=== PATIENT | female | born 1940 | race Caucasian/White ===

== ENCOUNTER 2016-12-21 12:43 | Inpatient (IN) | payer MEDICARE, BC ==
[2016-12-21] MEDS ORDERED: NS 0.9% 1000 ML* 1,000 ML IV SCH (15:30)
--- NOTE | 2016-12-21 15:53 | RAD ---
HISTORY: Altered mental status COMPARISONS: June 16, 2016 VIEWS:1: Single frontal portable view of the chest at 3:37 PM FINDINGS: LINES AND TUBES: None. CARDIOMEDIASTINAL SILHOUETTE: The cardiomediastinal silhouette is normal for portable technique. PLEURA: The costophrenic angles are sharp. No pleural abnormalities are noted. LUNG PARENCHYMA: The lungs are clear. ABDOMEN: The upper abdomen is clear. There is no subphrenic gas. BONES AND SOFT TISSUES: No bone or soft tissue abnormalities are noted. IMPRESSION: NO ACTIVE CARDIOPULMONARY DISEASE.
[2016-12-21 16:17] LABS: Hematocrit 44 % (35-47); Hemoglobin 14.9 g/dl (12.0-16.0); Mean Corpuscular HGB Conc 34 g/dl (31-36); Mean Corpuscular Hemoglobin 31 pg (27-31); Mean Corpuscular Volume 92 fL (80-97); Mean Platelet Volume 8 um3 (7.4-10.4); Red Blood Count 4.78 10^6/ul (4.0-5.4); Red Cell Distribution Width 15 % (10.5-15); White Blood Count 4.3 10^3/ul (3.5-10.8)
--- NOTE | 2016-12-21 16:24 | RAD ---
Indication: Altered mental status. Weakness and fatigue for the past 6 weeks. Comparison: November 09, 2016 MRI. June 15, 2016 CT. Technique: Noncontrast CT vertex of skull through foramen magnum. Report: Mild prominence of the cerebral sulci and cerebellar fissures reflecting atrophy. Unremarkable ventricles and basal cisterns. Decreased density in the periventricular and subcortical white matter while non-specific is most likely due to chronic microangiopathy. Negative for neff matter white matter obscuration, intra or extra-axial hemorrhage, or mass effect. Unremarkable orbital contents. Partially visualized RIGHT maxillary sinus is hypoplastic with indolent thickening of the sinus broussard without change. Negative for paranasal sinus fluid levels within the [id number]. Clear mastoid air spaces. No suspicious skull base or calvarial lesions or fracture. Negative for scalp hematoma. IMPRESSION: Mild involutional change and stigmata of chronic small vessel ischemic disease. Stable exam compared with June 15, 2016. No acute intracranial process evident.
[2016-12-21 16:38] LABS: B Type Natriuretic Peptide 78 pg/mL
[2016-12-21 16:41] LABS: Troponin I 0.07 ng/mL (<0.04)
[2016-12-21 16:46] LABS: ALT 17 U/L (7-52); AST 39 U/L (13-39); Albumin 3.8 g/dL (3.2-5.2); Alkaline Phosphatase 81 U/L (34-104); Anion Gap 9 mmol/L (2-11); Blood Urea Nitrogen 6 mg/dL (6-24); C Reactive Protein 8.83 mg/L (< 5.00); CO2 Carbon Dioxide 26 mmol/L (22-32); Calcium 9.7 mg/dL (8.6-10.3); Chloride 93 mmol/L (101-111); Creatine Kinase 52 U/L (10-223); EGFR African American 154.3 (>60); Globulin 3.2 g/dL (2-4); Glucose 120 mg/dL (70-100); Lipase 24 U/L (11.0-82.0); Magnesium 1.5 mg/dL (1.9-2.7); Potassium 3.5 mmol/L (3.5-5.0); Sodium 128 mmol/L (133-145)
[2016-12-21 16:50] LABS: Ammonia 43 mol/L (16-53)
[2016-12-21 17:03] LABS: Acetaminophen < 15 mcg/mL; Alcohol < 10 mg/dL (<10); Salicylate < 2.50 mg/dL (<30)
[2016-12-21 17:13] LABS: TSH (Thyroid Stimulating Horm) 3.71 mcIU/mL (0.34-5.60)
[2016-12-21 17:48] LABS: Urine Bacteria 1+ (Absent); Urine Bilirubin Negative (Negative); Urine Glucose Negative (Negative); Urine Nitrite Positive (Negative)
[2016-12-21] MEDS ORDERED: cefTRIAXone VIAL(*) 1,000 MG in NS 0.9% 50 ML* 50 ML IVPB ONE (18:14)
--- NOTE | 2016-12-21 18:15 | ED ---
Elijah Beck Erika, scribed for Mandy Mead MD on 12/21/16 at 1743 . Complex/Multi-Sys Presentation - HPI Summary HPI Summary: Patient is a 76-year-old female presenting to the ED with her with a CC of confusion, unsteady gait and falls. Patient has difficulty telling the history, she states due to headache, so provides the majority of the history. He reports that 4-5 weeks ago, pt developed increasing somnolence - 20 + hours/day now - with some awake periods at night. For the past 3 weeks or so, pt has had an occipital headache radiating to the ears - denies visual changes. He states pt has always had difficulty with gait due to psoriatic arthritis in her foot with reconstructive surgery, but states that balance has significantly worsened. He reports that she has fallen many times, which is abnormal, and that she is now using a walker. Pt also has had increased confusion, and difficulty speaking. He reports pt starts sentences but will be unable to complete them sometimes - pt reports that she sometimes knows the word she wants to say but cannot say it, and sometimes has a hard time thinking of words. also reports mild slurred speech at times. Pt also has had decreased PO intake in this time per , and constipation but no diarrhea. Pt was seen by her PCP, Dr. Terry, for these symptoms, and had a Brain CT scheduled for tomorrow. However, pt decided to come today instead - symptoms have been gradually progressing over the past month and today decided it had gone too far. Patient was admitted to a rehab hospital for alcohol abuse and cardiac disease in September 2016 - last known drink was prior to this hospitalization per and patient. Patient is taking a maintenance dose of prednisone. Recently discontinued Tegretol on 12/19/2016 - had been on it for 3 weeks for possible trigeminal neuralgia. Stopped this medicaiton on Tuesday. Hx HTN controlled with medication. 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 Hx MRSA - Tx with vancomycin. PSHx mastectomy - breast CA. PSHx artificial elbows, knees. Pt with MRSA infecitons. Denies Hx stroke, [place]. Patient's medications reviewed this visit. - History Of Current Complaint Chief Complaint: EDWeakness Time Seen by Provider: 12/21/16 17:30 Hx Obtained From: Patient, Family/Hand Molder - Onset/Duration: Gradual Onset, Lasting Weeks, Still Present Timing: Constant Severity Currently: Moderate Severity Initially: Mild Associated Signs And Symptoms: Positive: Confusion, Headache, Decreased Oral Intake, Other - unsteady gait, difficulty speaking. Negative: Decreased Responsiveness - Allergies/Home Medications Allergies/Adverse Reactions: Allergies Allergy/AdvReac Type Severity Reaction Status Date / Time Celecoxib [From Celebrex] Allergy Unknown Rash Verified 11/25/16 14:35 Methotrexate Allergy See Comment Verified 11/25/16 14:35 Vancomycin Allergy Rash Verified 11/25/16 14:35 adhesives AdvReac Intermediate Rash Uncoded 11/02/16 12:11 Home Medications: Home Medications Apixaban* [Eliquis*] 5 mg PO BID 12/21/16 [History Confirmed 12/21/16] Cholecalciferol [Vitamin D3 Super Strength] 2,000 unit PO DAILY 12/21/16 [ History Confirmed 12/21/16] Cyanocobalamin TAB* [Vitamin B12 TAB*] 1,000 mcg PO DAILY 12/21/16 [History Confirmed 12/21/16] Docusate Sodium [Gnp Stool Softener] 250 mg PO DAILY 12/21/16 [History Confirmed 12/21/16] Dofetilide CAP* [Tikosyn CAP*] 500 mcg PO BID 12/21/16 [History Confirmed ] Ibuprofen TAB* [Advil TAB*] 400 mg PO .Q4-6H PRN 12/21/16 [History Confirmed 05/01] Levothyroxine TAB* [Synthroid TAB*] 137 mcg PO DAILY 12/21/16 [History Confirmed 12/21/16] Losartan TAB* [Cozaar TAB*] 75 mg PO DAILY 12/21/16 [History Confirmed 12/21/16] Minocycline (NF) 100 mg PO QPM 12/21/16 [History Confirmed 12/21/16] Montelukast Sodium TAB* [Singulair TAB*] 10 mg PO DAILY 12/21/16 [History Confirmed 12/21/16] Multivitamins/Minerals TAB* [Theragran/minerals TAB*] 1 tab PO DAILY 12/21/16 [ History Confirmed 12/21/16] Pantoprazole TAB (NF) [Protonix TAB (NF)] 40 mg PO DAILY 12/21/16 [History Confirmed 12/21/16] Probiotic Product [Probiotic Daily] 1 cap PO BID 12/21/16 [History Confirmed 05/01] Ranitidine TAB (NF) [Zantac TAB (NF)] 300 mg PO BEDTIME 12/21/16 [History Confirmed 12/21/16] Teriparatide (Recombinant) [Forteo] 20 mcg SUBCUT DAILY 12/21/16 [History Confirmed 12/21/16] Venlafaxine EXT RELEASE CAP* [Effexor Xr CAP*] 75 mg PO DAILY 12/21/16 [History Confirmed 12/21/16] amLODIPine TAB* [Norvasc 5 mg TAB*] 5 mg PO DAILY 12/21/16 [History Confirmed ] azaTHIOprine TAB(*) [Imuran TAB(*)] 100 mg PO DAILY 12/21/16 [History Confirmed 12/21/16] carBAMazepine ER TAB(*) [TEGretol Xr TAB(*)] 100 mg PO QAM 12/21/16 [History Confirmed 12/21/16] predniSONE TAB* [Deltasone TAB*] 5 mg PO DAILY 12/21/16 [History Confirmed 12/21] PMH/Surg Hx/FS Hx/Imm Hx Endocrine/Hematology History: Reports: Hx Thyroid Disease - hypothyroidism Denies: Hx Anticoagulant Therapy Cardiovascular History: Reports: Hx Atrial Fibrillation - on blood thinner, Hx Hypercholesterolemia, Hx Hypertension - W/MEDS, Hx Valvular Heart Disease - Aortic Valve disease, Other Cardiovascular Problems/Disorders - ON BLOOD THINNER MEDICATION PER Respiratory History: Reports: Hx Chronic Obstructive Pulmonary Disease (COPD) - with chronic bronchitis, Hx Sleep Apnea, Other Respiratory Problems/Disorders - Pulmonary HTN GI History: Reports: Hx Gastroesophageal Reflux Disease, Hx Ulcer - gerd, Other GI Disorders - CONSTIPATION- DIET CONTROLLED History: Denies: Hx Renal Disease Musculoskeletal History: Reports: Hx Arthritis, Hx Back Problems, Hx Orthopedic Injury - Right arm reconstruction r/t traumatic injury, Other Musculoskeletal History - Left Fibula Fracture 08/03/16, psoriatic arthritis Sensory History: Reports: Hx Cataracts, Hx Contacts or Glasses Opthamlomology History: Reports: Hx Cataracts, Hx Contacts or Glasses Neurological History: Denies: Hx CVA Psychiatric History: Reports: Hx Depression, Hx Suicide Attempt, Hx Substance Abuse - EtOH - Cancer History Cancer Type, Location and Year: Rt BREAST - MASTECTOMY - 2013 Hx Chemotherapy: No Hx Radiation Therapy: Yes Hx Palliative Cancer Treatment: No - Surgical History Surgery Procedure, Year, and Place: CATARACTS. LT FOOT - REPAIR - RECON W/ METAL. LUMBAR - DISCETOMY, HERNIATION. NON- MALIGNANT TUMOR REMOVED. REN KNEE REPLACEMENTS ( 1999 & 2009). Rt ELBOW - ARTIFICIAL JOINT AND METAL PLATE ABOVE JOINT. TONSILECTOMY. APPENDECTOMY. OVARIAN CYST REMOVED - RNE. Rt MASTECTOMY Hx Anesthesia Reactions: No Infectious Disease History: Yes Infectious Disease History: Reports: Hx of Known/Suspected MRSA - right elbow, 2012 Denies: Hx Clostridium Difficile, Hx Hepatitis, Hx Human Immunodeficiency Virus (HIV), Hx Shingles, Hx Tuberculosis, Hx Known/Suspected VRE, Hx Known/ Suspected VRSA, History Other Infectious Disease, Traveled Outside the in Last 30 Days - Family History Known Family History: Positive: Other - Breast CA - Social History Occupation: Retired Lives: With Family Alcohol Use: None - Hx EtOH abuse - sober since 09/2016 Hx Tobacco Use: Yes Smoking Status (MU): Current Every Day Smoker Type: Cigarettes Amount Used/How Often: 5 a day Length of Time of Smoking/Using Tobacco: 15 yrs Have You Smoked in the Last Year: No Review of Systems Positive: Fatigue, Other - confusion, falls. Negative: Fever, Chills Negative: Blurred Vision ENT: Negative Cardiovascular: Negative Respiratory: Negative Gastrointestinal: Negative Positive: Other - decreased PO intake, constipation. Negative: Diarrhea Genitourinary: Negative Positive: Arthralgia Positive: Bruising - multipe bruises related to falls Neurological: Other - confusion, unsteady gait, difficulty speaking Positive: Headache, Weakness Psychological: Normal All Other Systems Reviewed And Are Negative: Yes Physical Exam Triage Information Reviewed: Yes Vital Signs On Initial Exam: Initial Vitals Temp Pulse Resp BP Pulse Ox 96.1 F 69 18 187/88 96 12/21/16 12:47 12/21/16 12:47 12/21/16 12:47 12/21/16 12:47 12/21/16 12:47 Vital Signs Reviewed: Yes Completion Of Physical Exam Limited Due To: Other - assist with hx Appearance: Positive: Well-Appearing, No Pain Distress, Well-Nourished Skin: Positive: Warm, Skin Color Reflects Adequate Perfusion, Dry, Other - muliple areas ecchymosis b/l upper ext s/p falls Head/Face: Positive: Normal Head/Face Inspection. Negative: Temporal Artery Tenderness, TMJ Tenderness Eyes: Positive: EOMI, LEIGH, Conjunctiva Clear ENT: Positive: Hearing grossly normal, Pharynx normal, TMs normal Neck: Positive: Supple, Nontender, No Lymphadenopathy. Negative: Nuchal Rigidity Respiratory/Lung Sounds: Positive: Clear to Auscultation, Breath Sounds Present. Negative: Wheezes Cardiovascular: Positive: Normal, RRR, Murmur Abdomen Description: Positive: Nontender, No Organomegaly, Soft Bowel Sounds: Positive: Present Musculoskeletal: Positive: Other - left foot surgical deformity + SLE b/l + ROM upper ext at baseline per and pt - limited second to reconstructive surgery Neurological: Positive: Facial Symmetry, Speech Normal. Negative: Alert, Oriented to Person Place, Time - alert to name, year, president - not month, place, Receptive Aphasia, Expressive Aphasia, Facial Droop, Slurred Speech Psychiatric: Positive: Normal AVPU Assessment: Alert - [place] Coma Scale Best Eye Response: 4 - Spontaneous Best Motor Response: 6 - Obeys Commands Best Verbal Response: 5 - Oriented Diagnostics - Vital Signs Vital Signs Temp Pulse Resp BP Pulse Ox 12/21/16 16:13 192/98 12/21/16 16:04 67 14 93 12/21/16 16:00 68 18 197/93 94 12/21/16 15:39 15 197/96 12/21/16 15:28 97.7 F 69 14 197/96 95 12/21/16 15:26 70 92 12/21/16 14:02 97.2 F 63 18 177/80 100 12/21/16 12:47 96.1 F 69 18 187/88 96 - Laboratory Lab Results: Lab Results 12/21/16 12/21/16 12/21/16 Range/Units 15:55 15:55 15:55 WBC 4.3 (3.5-10.8) 10^3/ul RBC 4.78 (4.0-5.4) 10^6/ul Hgb 14.9 (12.0-16.0) g/dl Hct 44 (35-47) % MCV 92 (80-97) fL MCH 31 (27-31) pg MCHC 34 (31-36) g/dl RDW 15 (10.5-15) % Plt Count 153 (150-450) 10^3/ul MPV 8 (7.4-10.4) um3 Neut % (Auto) 62.7 (38-83) % Lymph % (Auto) 19.7 L (25-47) % Branch % (Auto) 8.0 (1-9) % Eos % (Auto) 9.1 H (0-6) % Baso % (Auto) 0.5 (0-2) % Absolute Neuts (auto) 2.7 (1.5-7.7) 10^3/ul Absolute Lymphs (auto) 0.8 L (1.0-4.8) 10^3/ul Absolute Monos (auto) 0.3 (0-0.8) 10^3/ul Absolute Eos (auto) 0.4 (0-0.6) 10^3/ul Absolute Basos (auto) 0 (0-0.2) 10^3/ul Absolute Nucleated RBC 0.01 10^3/ul Nucleated RBC % 0.2 INR (Anticoag Therapy) 1.02 (0.89-1.11) APTT 23.1 L (26.0-36.3) seconds Sodium 128 L (133-145) mmol/L Potassium 3.5 (3.5-5.0) mmol/L Chloride 93 L (101-111) mmol/L Carbon Dioxide 26 (22-32) mmol/L Anion Gap 9 (2-11) mmol/L BUN 6 (6-24) mg/dL Creatinine 0.50 L (0.51-0.95) mg/dL Est GFR ( Amer) 154.3 (>60) Est GFR (Non-Af Amer) 120.0 (>60) BUN/Creatinine Ratio 12.0 (8-20) Glucose 120 H (70-100) mg/dL Lactic Acid (0.5-2.0) mmol/L Calcium 9.7 (8.6-10.3) mg/dL Magnesium 1.5 L (1.9-2.7) mg/dL Total Bilirubin 0.40 (0.2-1.0) mg/dL AST 39 (13-39) U/L ALT 17 (7-52) U/L Alkaline Phosphatase 81 (34-104) U/L Ammonia (16-53) mol/L Total Creatine Kinase 52 (10-223) U/L CK-MB (CK-2) 5.7 (0.6-6.3) ng/mL Troponin I 0.07 H* (<0.04) ng/mL C-Reactive Protein 8.83 H (< 5.00) mg/L B-Natriuretic Peptide ( - 100) pg/mL Total Protein 7.0 (6.4-8.9) g/dL Albumin 3.8 (3.2-5.2) g/dL Globulin 3.2 (2-4) g/dL Albumin/Globulin Ratio 1.2 (1-3) Lipase 24 (11.0-82.0) U/L TSH 3.71 (0.34-5.60) mcIU/mL Salicylates < 2.50 (<30) mg/dL Acetaminophen < 15 mcg/mL Serum Alcohol < 10 (<10) mg/dL 12/21/16 12/21/16 Range/Units 15:55 15:55 WBC (3.5-10.8) 10^3/ul RBC (4.0-5.4) 10^6/ul Hgb (12.0-16.0) g/dl Hct (35-47) % MCV (80-97) fL MCH (27-31) pg MCHC (31-36) g/dl RDW (10.5-15) % Plt Count (150-450) 10^3/ul MPV (7.4-10.4) um3 Neut % (Auto) (38-83) % Lymph % (Auto) (25-47) % Branch % (Auto) (1-9) % Eos % (Auto) (0-6) % Baso % (Auto) (0-2) % Absolute Neuts (auto) (1.5-7.7) 10^3/ul Absolute Lymphs (auto) (1.0-4.8) 10^3/ul Absolute Monos (auto) (0-0.8) 10^3/ul Absolute Eos (auto) (0-0.6) 10^3/ul Absolute Basos (auto) (0-0.2) 10^3/ul Absolute Nucleated RBC 10^3/ul Nucleated RBC % INR (Anticoag Therapy) (0.89-1.11) APTT (26.0-36.3) seconds Sodium (133-145) mmol/L Potassium (3.5-5.0) mmol/L Chloride (101-111) mmol/L Carbon Dioxide (22-32) mmol/L Anion Gap (2-11) mmol/L BUN (6-24) mg/dL Creatinine (0.51-0.95) mg/dL Est GFR ( Amer) (>60) Est GFR (Non-Af Amer) (>60) BUN/Creatinine Ratio (8-20) Glucose (70-100) mg/dL Lactic Acid 0.8 (0.5-2.0) mmol/L Calcium (8.6-10.3) mg/dL Magnesium (1.9-2.7) mg/dL Total Bilirubin (0.2-1.0) mg/dL AST (13-39) U/L ALT (7-52) U/L Alkaline Phosphatase (34-104) U/L Ammonia 43 (16-53) mol/L Total Creatine Kinase (10-223) U/L CK-MB (CK-2) (0.6-6.3) ng/mL Troponin I (<0.04) ng/mL C-Reactive Protein (< 5.00) mg/L B-Natriuretic Peptide 78 ( - 100) pg/mL Total Protein (6.4-8.9) g/dL Albumin (3.2-5.2) g/dL Globulin (2-4) g/dL Albumin/Globulin Ratio (1-3) Lipase (11.0-82.0) U/L TSH (0.34-5.60) mcIU/mL Salicylates (<30) mg/dL Acetaminophen mcg/mL Serum Alcohol (<10) mg/dL Result Diagrams: 12/21/16 15:55 12/21/16 15:55 Lab Statement: Any lab studies that have been ordered have been reviewed, and results considered in the medical decision making process. - Radiology CXR Radiology Interpretation Completed By: Radiologist - IMPRESSION: NO ACTIVE CARDIOPULMONARY DISEASE. - CT CT Brain CT Interpretation Completed By: Radiologist - IMPRESSION: Mild involutional change and stigmata of chronic small vessel ischemic disease. Stable exam compared with June 15, 2016. No acute intracranial process evident. - EKG 15:13 Cardiac Rate: NL - at 73 bpm EKG Rhythm: Sinus Rhythm EKG Interpretation: No T wave changes Re-Evaluation - Re-Evaluation First Eval Re-Evaluation Time: 18:08 Change: Unchanged Comment: Pt and are in agreement with the plan for admission. reviewed labs with pt. + UTI. + slight bump in trop. Will give ceftriaxone Complex Multi-Symp Course/Dx Assessment/Plan: Pt presents with with multiple complaints including progressive fatigue, recurrent falls, posterior SHER, balanace difficulty, confusion. Will check labs, EKG, head CT, urine. IVF. likely will admit for ?MRI given posterior SHER and concerns related to balance. Pt and in agreement with plan - Diagnoses Provider Diagnoses: Fall, UTI (urinary tract infection), Elevated troponin - Physician Notifications Discussed Care Of Patient With: Dr. Mead (hospitalist) at 18:08 - agrees to admit Discharge - Discharge Plan Condition: Stable Disposition: ADMITTED TO [facility] documentation as recorded by the Elijah olguin Erika accurately reflects the service I personally performed and the decisions made by [place] miles Laura, MD.
[2016-12-21] MEDS ORDERED: hydrALAZINE IV* 20 MG/ML VIAL IV SLOW PU PRN (18:43)
[2016-12-21] MEDS ORDERED: Albuterol 2.5 MG/3 ML NEB.SOL* (0.083%) INH PRN (18:49)
[2016-12-21] MEDS ORDERED: Magnesium Sulfate 2 GM IV* 2 GM/50 ML BAG IVPB ONE (19:00)
[2016-12-21 19:28] LABS: Carbamazepine 16.1 mcg/mL (4.0-12.0)
[2016-12-21] MEDS ORDERED: Labetalol IV* 5 MG/ML 20 ML VIAL IV PUSH ONE (20:57)
[2016-12-21] MEDS ORDERED: amLODIPine TAB* 5 MG PO ONE (20:58)
[2016-12-21] MEDS ORDERED: hydrALAZINE IV* 20 MG/ML VIAL IV SLOW PU ONE (21:08)
[2016-12-21] MEDS: Famotidine TAB* 20 MG PO SCH (21:15)
[2016-12-21] MEDS: Acetaminophen TAB* 325 MG PO PRN (21:15)
--- NOTE | 2016-12-21 21:17 | RAD ---
Indication: Unsteady gait, weakness and fatigue for 6 weeks. Worsening of symptoms today. Urinary tract infection. Comparison: CT brain of the same date and November 09, 2016 MRI. Technique: Socruisea 1.5 Swati [id number] with GEM suite. Limited exam due to poor tolerance for MRI imaging. Sagittal T1, axial diffusion-weighted, axial T2, and ADC map obtained. Report: Diffusion series is negative for acute or subacute ischemia. Mild prominence of the cerebral sulci and cerebellar fissures reflecting atrophy. Unremarkable ventricles and basal cisterns. Reference the axial T2 FLAIR series there is increased signal within the bilateral occipital lobe subcortical white matter and cortex new compared with the prior exam without associated diffusion abnormality or abnormality on the sagittal T1-weighted series. In addition there is chronic increased T2 signal in the periventricular white matter of the cerebral hemispheres and the ju. Negative for intra or extra-axial fluid collection. Negative for mass effect. No gross abnormality of the orbital contents. Preserved major intracranial flow-voids. No focal calvarial or skull base lesion evident. Hypoplastic RIGHT maxillary sinus. Negative for paranasal sinus fluid levels. Clear mastoid air spaces. IMPRESSION: 1. The constellation of findings favors posterior reversible encephalopathy syndrome (PRES) resulting in vasogenic edema without stigmata of acute or subacute ischemia at the bilateral subdural lobes. This may be secondary to severe hypertension, drug toxicity, autoimmune disease, or sepsis. 2. Mild involutional change and chronic stigmata of small vessel ischemic disease. 3. Negative for diffusion abnormalities to indicate acute or subacute ischemia.
[2016-12-21] MEDS: Mometasone 220 MCG MDI INH SCH (22:00)
[2016-12-21] MEDS: Apixaban* 5 MG TAB PO SCH (23:39)
[2016-12-21] MEDS: Dofetilide CAP* 500 MCG PO SCH (23:39)
[2016-12-22] MEDS: HYDROmorphone TAB* 2 MG PO SCH ×4 (00:23→05:31)
--- NOTE | 2016-12-22 00:42 | HP ---
HISTORY AND PHYSICAL: DATE OF ADMISSION: 12/21/16 PRIMARY CARE PROVIDER: Dr. Terry. ATTENDING PROVIDER: Sabino Mead MD * (dictated by Silvina Odell NP) CHIEF COMPLAINT: 1. Altered mental status. 2. Weakness. 3. Headache. HISTORY OF PRESENTING ILLNESS: Ms. Gusman is a 76-year-old female with quite an extensive medical history, history of hypertension, AFib, hypothyroidism, psoriatic arthritis, chronic pain, eosinophilic pneumonitis or bronchitis, history of CVID, pulmonary hypertension, aortic stenosis, MRSA, and history of breast cancer. She comes into the ER today stating that last 3 weeks, she has had a headache in the back of her head, going down her neck, and she has been having some trouble. No neck stiffness, no fevers were recorded, but she has been more confused, not acting herself. Again, no fevers were noted by the family. There has been no nausea, vomiting. No chest pain. No abdominal pain. She says the headache is a sharp stabbing pain, it has been constant for about 3 weeks' time. She says that she has not had any change of medication with the exception recently she was added on Tegretol which was just reduced by Dr. Terry's office. In addition to this, does take chronic hydromorphone, which has been reduced since these episodes. Other big complaint she has also been having some somnolence. She is feeling tired, sleeping 20 plus hours a day, and there was concern on the 's part that she was not herself so he sent her into the hospital. She again denies any chest pain, no shortness of breath , says that she currently is not having any headache and again denies having any dysuria or frequency. She was evaluated in the ED. It was noted that she did appear to have a UTI. In addition to this, it was noted that her blood pressures were in the 190s. The hospitalist service was asked to evaluate for admission. PAST MEDICAL HISTORY: Significant for: 1. Hypertension. 2. AFib. 3. Hypothyroidism. 4. Psoriatic arthritis. 5. Chronic pain. 6. Eosinophilic pneumonitis versus bronchitis. 7. CVID. 8. Pulmonary hypertension. 9. Aortic stenosis. 10. MRSA. 11. Breast cancer. PAST SURGICAL HISTORY: She has had: 1. Nine back surgeries. 2. Elbow surgery. 3. Arm surgery. 4. Ovarian cyst extraction. 5. Morphine pump placement and removal. 6. Mastectomy. 7. Bilateral total knee replacements. MEDICATIONS: Home meds include: 1. Hydromorphone ER tablet; she is actually taking 12 mg p.o. daily according to the last notes from Dr. Terry. 2. B12 1000 mcg daily. 3. Iron capsule 1 tablet p.o. daily. 4. Synthroid 137 mcg daily. 5. Probiotic 1 capsule p.o. b.i.d. 6. Vitamin D 2000 units p.o. daily. 7. Norvasc 5 mg daily. 8. Multivitamin 1 tablet daily. 9. Cozaar 75 mg daily. 10. Protonix 40 mg daily. 11. Flovent 2 puffs inhaled b.i.d. 12. Zantac 300 mg p.o. at bedtime. 13. Albuterol 2.5 mg p.o. inhaled every 6 hours as needed. 14. Forteo 20 mcg subcu daily. 15. Tikosyn 500 mcg p.o. b.i.d. 16. Singulair 10 mg daily. 17. Ibuprofen 400 mg every 4 to 6 hours as needed. 18. Imuran 100 mg p.o. daily. 19. Minocycline 100 mg daily. 20. Effexor 75 mg daily. 21. Prednisone 5 mg daily. 22. Tegretol 100 mg p.o. daily. 23. Stool softener 250 mg p.o. daily. 24. Apixaban 5 mg p.o. b.i.d. ALLERGIES TO MEDICATIONS: Include CELEBREX, VANCO, METHOTREXATE, and ADHESIVE TAPE. FAMILY HISTORY: The mother had a pacemaker, father had a history of coronary artery disease and psoriasis. SOCIAL HISTORY: She is a former smoker. She does not drink alcohol anymore. Surrogate decision maker is her . REVIEW OF SYSTEMS: There is no documented fever. She denied any significant weight change. There was no double vision. There was no ear discharge. She denies having any rhinorrhea. There is no sore throat. No thyroid enlargement. She denied having any chest pain. There is no orthopnea, there is no nocturnal dyspnea. There is no abdominal pain. No nausea, no vomiting. No dysuria, no frequency. No seizure, no loss of consciousness. No pruritus and no skin ulcerations. Review of 14 systems completed, all others negative. PHYSICAL EXAMINATION GENERAL: At this time, Ms. Gusman is a 76-year-old female patient. She is sitting in the ER stretcher. She does not appear to be in any acute distress. VITAL SIGNS: Reveal blood pressure 174/96, pulse 71, respirations 18, O2 sat was 100%, temperature 97.2. HEENT: Head: Atraumatic and normocephalic. Eyes: EOMs are intact. Sclerae were anicteric and not pale. Throat: Oral mucosa appears to be moist. No oropharyngeal erythema. NECK: Supple. LUNGS: Clear to auscultation bilaterally. No wheezes, rales, or rhonchi. HEART: Heart sounds S1, S2. Regular rate and rhythm. No murmurs, rubs, or gallops. She did have grade 2 to 3 aortic murmur. ABDOMEN: Soft, flat, nontender. Bowel sounds present. EXTREMITIES: Pulses were 2+ throughout. She is able to move all 4 extremities with 5/5 strength. She does have a deformity noted to the left lower extremity and to the ankle. NEUROLOGIC: She is awake, she is alert, she is confused to the month, but she knows she is in the hospital. She does know her name. Her dev technical mgr were equal. Speech is clear. Tongue midline. [id number] intact bilaterally. Heel-to- carranza intact bilaterally. No gross focal deficits. SKIN: Intact. DIAGNOSTIC STUDIES/LAB DATA: Labs today revealed a WBC of 4.3, RBC of 4.78, hemoglobin 14.9, hematocrit of 44, platelet count of 153. INR 1.02, PTT of 23.1. Sodium 128 which is right near her baseline, potassium 3.5, chloride 93, bicarb 26, BUN 6, creatinine 0.50, glucose 120, lactate 0.8, calcium 9.7, mag 1.5. Total bili 0.4, AST 29, ALT 17, alk phos 81. Ammonia 43. CK 52, CK-MB 5.7. Troponin 0.07 which has been this in the past. CRP of 8. Albumin of 3.8 , lipase 24. TSH of 3.7. Urine showed positive nitrites, 2+ leukocyte esterase , 3+ wbc's. Toxicology was negative. She did have a chest x-ray obtained today which revealed no active cardiopulmonary disease. There was a brain CT which revealed mild involutional change and stigmata of chronic small vessel ischemic disease, stable compared to the exam of June 15. There was an EKG obtained today; it showed normal sinus rhythm. No ST elevations or T-wave inversions. It was reviewed to the previous EKG. Now, in this EKG today, anteriorly there are noted to be QRS that is negative which is new from her previous EKG. We are repeating this new EKG now. Old medical records were reviewed. ASSESSMENT AND PLAN: Ms. Gusman is a 76-year-old female patient coming into the ER today with complaints of weakness and confusion. On evaluation, found to have an urinary tract infection and also was found to be hypertensive. She will be admitted under inpatient status for: 1. Confusion, weakness, and urinary tract infection. At this point, I suspect the urinary tract infection may be contributing to her somnolence. It could be polypharmacy too. I have cut back the hydromorphone to 8 mg daily. We will continue the Tegretol for now. I did order a Tegretol level. We will treat her urinary tract infection with Rocephin. She has been complaining of having some issues with balance and gait. I did order an MRI of the brain as well as I think there may be a cerebrovascular event contributing to this and we will continue to follow. 2. Hypertension. Certainly, her blood pressure being in the 190 to 200 when she came in here may be contributing to the headaches. So, I did add on p.r.n. hydralazine. We may need to maximize her p.o. medications to get better control of her blood pressure which may be causing the discomfort. 3. Atrial fibrillation. She appears to be in a sinus rhythm. 4. Indeterminate troponin. It could be demand ischemia secondary to the hypertension. She has had troponins this high in the past. EKG does have changes. I am repeating this now. If it continues to elevate, obviously we will get Cardiology input and an echo. 5. Hypothyroidism. Continue Synthroid. 6. Psoriatic arthritis. Continue meds as prescribed. 7. Chronic pain. Again, continue with hydromorphone on a reduced rate. 8. Eosinophilic pneumonitis versus bronchitis. Continue with the current medical regimen. 9. Common variable immune deficiency. She is taking IVIG on a monthly basis. She can continue with this. 10. Pulmonary hypertension. We will continue to follow. 11. Aortic stenosis. Will follow with her primary. 12. History of breast cancer. Not an active issue. Will follow. 13. DVT prophylaxis. She is on apixaban. We will continue this. 14. Low magnesium or hypomagnesemia. We will replace this with IV mag. 15. Fluid, electrolytes, and nutrition. She can have a regular diet. 16. Code status. She reports that she would like to be a do not resuscitate. I will see if a MOLST on file. TIME SPENT: On this admission was 60 minutes, greater than half the time was spent [id number] with the patient, obtaining my history of physical; the other half time was spent going over the plan of care with the patient and implementing plan of care. I did discuss the plan of care with my attending Dr. Mead; he is in agreement. SILVINA ODELL NP CC: Dr. Terry * [id number]/CPS #: [id number] MTDD
[2016-12-22] MEDS: Acetaminophen TAB* 325 MG PO PRN ×3 (03:11→20:16)
[2016-12-22] MEDS: Levothyroxine TAB* 137 MCG TAB PO SCH (05:31)
[2016-12-22] MEDS: hydrALAZINE IV* 20 MG/ML VIAL IV SLOW PU PRN (05:32)
[2016-12-22] MEDS ORDERED: HYDROmorphone TAB* 2 MG PO SCH (06:00)
[2016-12-22] MEDS: Mometasone 220 MCG MDI INH SCH ×2 (07:51→20:47)
[2016-12-22] MEDS: Docusate CAP* 100 MG PO SCH (08:18)
[2016-12-22] MEDS: Venlafaxine EXT RELEASE CAP* 75 MG PO SCH (08:19)
[2016-12-22] MEDS: Apixaban* 5 MG TAB PO SCH ×2 (08:20→20:16)
[2016-12-22] MEDS: Omeprazole CAP* 20 MG PO SCH (08:20)
[2016-12-22] MEDS: Dofetilide CAP* 500 MCG PO SCH ×2 (08:20→21:06)
[2016-12-22] MEDS: amLODIPine TAB* 5 MG PO SCH (08:20)
[2016-12-22] MEDS: predniSONE TAB* 5 MG PO SCH (08:22)
[2016-12-22] MEDS ORDERED: Losartan TAB* 25 MG PO ONE (08:51)
[2016-12-22] MEDS ORDERED: carBAMazepine ER TAB(*) 100 MG PO SCH (09:00)
[2016-12-22] MEDS ORDERED: amLODIPine TAB* 5 MG PO SCH (09:00)
[2016-12-22] MEDS ORDERED: Losartan TAB* 25 MG PO SCH ×2 (09:00)
[2016-12-22] MEDS ORDERED: Hydromorphone ER TAB(NF) 16 MG TAB PO SCH (09:00)
[2016-12-22] MEDS ORDERED: azaTHIOprine TAB(*) 50 MG TAB PO SCH (09:00)
[2016-12-22 09:37] LABS: Hematocrit 42 % (35-47); Hemoglobin 14.1 g/dl (12.0-16.0); Mean Corpuscular HGB Conc 33 g/dl (31-36); Mean Corpuscular Hemoglobin 31 pg (27-31); Mean Corpuscular Volume 92 fL (80-97); Mean Platelet Volume 8 um3 (7.4-10.4); Red Blood Count 4.56 10^6/ul (4.0-5.4); Red Cell Distribution Width 15 % (10.5-15); White Blood Count 4.5 10^3/ul (3.5-10.8)
[2016-12-22 09:52] LABS: BUN/Creatinine Ratio 8.3 (8-20); Calcium 8.8 mg/dL (8.6-10.3); EGFR African American 161.7 (>60); EGFR Non-African American 125.7 (>60); Potassium 2.8 mmol/L (3.5-5.0)
[2016-12-22] MEDS: Potassium Chlor TAB* 20 MEQ TAB.ER PO SCH ×3 (11:05→18:17)
[2016-12-22] MEDS: HYDROmorphone TAB* 4 MG PO PRN ×3 (11:07→23:35)
--- NOTE | 2016-12-22 13:16 | PN ---
Subjective Date of Service: 12/22/16 Interval History: Patient seen this morning. Still complaining of headache, also chronic pain is bothersome as her outpatient doses of narcotics have been reduced over the past days-weeks due to concerns about contribution to presentation. Reports she has been having urinary frequency, no dysuria, no fever or chills. Does not seem confused but states that she thinks her symptoms may have been coming and going. Family History: Unchanged from Admission Social History: Unchanged from Admission Past Medical History: Unchanged from Admission Objective Active Medications: Acetaminophen (Tylenol Tab*) 650 mg PO Q4H PRN Albuterol (Ventolin 2.5 Mg/3 Ml Neb.Samreen*) 2.5 mg INH Q6HR PRN Amlodipine Besylate (Norvasc Tab*) 10 mg PO DAILY BIJU Apixaban (Eliquis*) 5 mg PO BID BIJU Docusate Sodium (Colace Cap*) 200 mg PO DAILY BIJU Dofetilide (Tikosyn Cap*) 500 mcg PO BID BIJU Famotidine (Pepcid Tab*) 40 mg PO BEDTIME BIJU Hydralazine HCl (Apresoline Iv*) 10 mg IV SLOW PU Q2H PRN Hydromorphone HCl (Dilaudid Tab*) 4 mg PO Q6HR PRN Ceftriaxone Sodium 1,000 mg/ (Sodium Chloride) 50 mls @ 200 mls/hr IVPB Q24H BIJU Levothyroxine Sodium (Synthroid Tab*) 137 mcg PO DAILY@0600 BIJU Losartan Potassium (Cozaar Tab*) 100 mg PO DAILY BIJU Minocycline HCl (Minocycline (Nf)) 100 mg PO QPM BIJU Mometasone Furoate (Asmanex 220 Mcg Mdi *) 2 puff INH BID BIJU Montelukast Sodium (Singulair Tab*) 10 mg PO BEDTIME BIJU Omeprazole (Prilosec Cap*) 20 mg PO DAILY@0730 BIJU Potassium Chloride (Klor Con Er Tab*) 40 meq PO Q2H BIJU Prednisone (Deltasone Tab*) 5 mg PO DAILY WITH MEAL BIJU Venlafaxine HCl (Effexor Xr Cap*) 75 mg PO DAILY BIJU Vital Signs 12/21/16 12/21/16 12/21/16 18:20 18:30 19:00 Temperature Pulse Rate 69 Respiratory 13 15 14 Rate Blood Pressure 191/88 184/90 (mmHg) O2 Sat by Pulse Oximetry 12/21/16 12/21/16 12/21/16 20:36 22:00 22:26 Temperature 98.4 F Pulse Rate 68 80 71 Respiratory 19 Rate Blood Pressure 199/90 208/93 174/67 (mmHg) O2 Sat by Pulse 97 Oximetry 12/22/16 12/22/16 12/22/16 11:07 11:20 12:55 Temperature 97.8 F Pulse Rate 62 Respiratory 18 16 16 Rate Blood Pressure 167/66 (mmHg) O2 Sat by Pulse 97 Oximetry Oxygen Devices in Use Now: None Appearance: Elderly, F, laying in bed in NAD Eyes: No Scleral Icterus Ears/Nose/Mouth/Throat: Mucous Membranes Moist Neck: NL Appearance and Movements; NL JVP Respiratory: Symmetrical Chest Expansion and Respiratory Effort, - - Ronchi on RLL field Cardiovascular: NL Sounds; No Murmurs; No JVD, RRR Abdominal: NL Sounds; No Tenderness; No Distention Lymphatic: No Cervical Adenopathy Extremities: No Edema, - - Chronic arthritic changes in both hands Skin: No Rash or Ulcers Neurological: Alert and Oriented x 3, - - no focal deficits Result Diagrams: 12/22/16 09:30 12/22/16 09:30 Microbiology and Other Data: Microbiology 12/21/16 20:10 Nasal Screen MRSA (PCR)(DEVIN) - Final Nasal Mrsa Negative Assess/Plan/Problems-Billing Assessment: Headache, confusion, recurrent falls in a 76 yo F with a complex medical history including psoriatic arthritis on Azathioprine, 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 Work-up has revealed evidence of PRES on MRI, UTI and elevated carbamazepine level - Patient Problems (1) Falls Current Visit: Yes Comment: headache, confusion. Seems like it could be multifactorial as patient has signs c/w PRES on MRI, significant HTN on admission, UTI and elevated carbamazepine levels. Stopped carbamazepine. (2) PRES (posterior reversible encephalopathy syndrome) Current Visit: Yes Comment: MRI c/w PRES, patient admitted in the setting of signifiant HTN. Received IV hydralazine overnight. Continue with aggressive BP control. Home Amlodipine increased to 10 mg daily and Losartan increased to 100 mg daily. Occasionally, immunosuppresive medications can contribute to this as well, spoke with Dr. Heavenly and will hold Azathioprine. This may be the cause of the patient's headache. Interestingly, during outpatient appoints where she was seen for these symptoms, BPs were WNL according to notes. (3) UTI (urinary tract infection) Current Visit: Yes Comment: Patient positive UA and increased urinary frequency. Will continue CTX 1 g daily for now, awaiting culture data. (4) Troponin I above reference range Current Visit: Yes Comment: No chest pain. Troponins peaked, likely due to demand from significant HTN (5) Afib Current Visit: No Comment: Paroxysmal, patient currently in sinus. Continue Tikosyn. Eliquis. (6) Psoriatic arthritis Current Visit: Yes Comment: Holding Azathioprine. Continue low dose prednisone. (7) Chronic pain Current Visit: No Comment: Continue Dilaudid, will increase dose and make prn (8) CVID (common variable immunodeficiency) Current Visit: Yes Comment: On outpatient IVIG (9) Hypothyroid Current Visit: No Comment: Continue synthroid (10) DVT prophylaxis Current Visit: No Comment: continue Eliquis Status and Disposition: Inpatient for BP monitoring, IV ABx
[2016-12-22] MEDS: cefTRIAXone VIAL(*) 1,000 MG in NS 0.9% 50 ML* 50 ML IVPB SCH (17:52)
[2016-12-22] MEDS: MINOCYCLINE 50 MG PO SCH (17:52)
[2016-12-22] MEDS ORDERED: hydrALAZINE TAB* 10 MG PO SCH (20:00)
[2016-12-22] MEDS: Famotidine TAB* 20 MG PO SCH (20:16)
[2016-12-22] MEDS: Montelukast Sodium TAB* 10 MG PO SCH (21:09)
[2016-12-23] MEDS: hydrALAZINE IV* 20 MG/ML VIAL IV SLOW PU PRN ×2 (01:36→04:48)
[2016-12-23] MEDS: Acetaminophen TAB* 325 MG PO PRN ×2 (01:37→20:15)
[2016-12-23] MEDS: HYDROmorphone TAB* 4 MG PO PRN ×4 (03:25→23:21)
[2016-12-23] MEDS: Levothyroxine TAB* 137 MCG TAB PO SCH (04:50)
[2016-12-23 05:19] LABS: BUN/Creatinine Ratio 11.4 (8-20); Calcium 9.3 mg/dL (8.6-10.3); EGFR African American 178.8 (>60)
[2016-12-23] MEDS: Venlafaxine EXT RELEASE CAP* 75 MG PO SCH (08:38)
[2016-12-23] MEDS: predniSONE TAB* 5 MG PO SCH (08:38)
[2016-12-23] MEDS: Apixaban* 5 MG TAB PO SCH ×2 (08:38→20:17)
[2016-12-23] MEDS: Docusate CAP* 100 MG PO SCH (08:38)
[2016-12-23] MEDS: Dofetilide CAP* 500 MCG PO SCH ×2 (08:38→21:06)
[2016-12-23] MEDS: Omeprazole CAP* 20 MG PO SCH (08:38)
[2016-12-23] MEDS: Losartan TAB* 25 MG PO SCH (08:38)
[2016-12-23] MEDS: hydrALAZINE TAB* 25 MG PO SCH ×3 (08:38→20:17)
[2016-12-23] MEDS: amLODIPine TAB* 5 MG PO SCH (08:39)
[2016-12-23 08:47] LABS: Carbamazepine 2.9 mcg/mL (4.0-12.0)
[2016-12-23] MEDS: Mometasone 220 MCG MDI INH SCH ×2 (09:14→20:49)
--- NOTE | 2016-12-23 09:41 | PN ---
Subjective Date of Service: 12/23/16 Interval History: Patient seen this morning. Continues to complain of pain due to headache and due to chronic hip/back pain. Says she still has been urinating frequently but not having any dysuria. No fever or chills. Seems a bit more inconsistent with history and timeline today. Family History: Unchanged from Admission Social History: Unchanged from Admission Past Medical History: Unchanged from Admission Objective Active Medications: Acetaminophen (Tylenol Tab*) 650 mg PO Q4H PRN Albuterol (Ventolin 2.5 Mg/3 Ml Neb.Samreen*) 2.5 mg INH Q6HR PRN Amlodipine Besylate (Norvasc Tab*) 10 mg PO DAILY BIJU Apixaban (Eliquis*) 5 mg PO BID BIJU Docusate Sodium (Colace Cap*) 200 mg PO DAILY BIJU Dofetilide (Tikosyn Cap*) 500 mcg PO BID BIJU Famotidine (Pepcid Tab*) 40 mg PO BEDTIME BIJU Hydralazine HCl (Apresoline Iv*) 10 mg IV SLOW PU Q2H PRN Hydralazine HCl (Apresoline Tab*) 25 mg PO 0900,1400,2100 BIJU Hydromorphone HCl (Dilaudid Tab*) 4 mg PO Q6HR PRN Ceftriaxone Sodium 1,000 mg/ (Sodium Chloride) 50 mls @ 200 mls/hr IVPB Q24H BIJU Levothyroxine Sodium (Synthroid Tab*) 137 mcg PO DAILY@0600 BIJU Losartan Potassium (Cozaar Tab*) 100 mg PO DAILY BIJU Minocycline HCl (Minocycline (Nf)) 100 mg PO QPM BIJU Mometasone Furoate (Asmanex 220 Mcg Mdi *) 2 puff INH BID BIJU Montelukast Sodium (Singulair Tab*) 10 mg PO BEDTIME BIJU Omeprazole (Prilosec Cap*) 20 mg PO DAILY@0730 BIJU Prednisone (Deltasone Tab*) 5 mg PO DAILY WITH MEAL BIJU Venlafaxine HCl (Effexor Xr Cap*) 75 mg PO DAILY BIJU Vital Signs 12/22/16 12/22/16 12/22/16 11:07 11:20 12:55 Temperature 97.8 F Pulse Rate 62 Respiratory 18 16 16 Rate Blood Pressure 167/66 (mmHg) O2 Sat by Pulse 97 Oximetry 12/23/16 12/23/1617 01:42 02:58 03:25 Temperature Pulse Rate 60 65 Respiratory 18 Rate Blood Pressure 188/73 151/72 (mmHg) O2 Sat by Pulse Oximetry 12/23/16 12/23/16 12/23/16 03:35 04:56 05:25 Temperature 98.7 F Pulse Rate 69 Respiratory 18 16 18 Rate Blood Pressure 197/74 (mmHg) O2 Sat by Pulse 93 Oximetry 12/23/16 12/23/16 12/23/16 05:35 07:52 08:00 Temperature 98.0 F Pulse Rate 77 Respiratory 17 18 18 Rate Blood Pressure 165/75 (mmHg) O2 Sat by Pulse 96 Oximetry Oxygen Devices in Use Now: None Appearance: Elderly, F, laying in bed in NAD Eyes: No Scleral Icterus Ears/Nose/Mouth/Throat: Mucous Membranes Moist Neck: NL Appearance and Movements; NL JVP Respiratory: Symmetrical Chest Expansion and Respiratory Effort, Clear to Auscultation Cardiovascular: RRR, - - EMMY Abdominal: NL Sounds; No Tenderness; No Distention Lymphatic: No Cervical Adenopathy Extremities: No Edema Skin: No Rash or Ulcers Neurological: Alert and Oriented x 3, - - slightly slower in some responses today Result Diagrams: 12/22/16 09:30 12/23/16 04:47 Assess/Plan/Problems-Billing Assessment: Headache, confusion, recurrent falls in a 76 yo F with a complex medical history including psoriatic arthritis on Azathioprine, 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 Work-up has revealed evidence of PRES on MRI, UTI and elevated carbamazepine level - Patient Problems (1) Falls Current Visit: Yes Comment: headache, confusion. Seems like it could be multifactorial as patient has signs c/w PRES on MRI, significant HTN on admission, UTI and elevated carbamazepine levels. Stopped carbamazepine, level has now normalized. (2) PRES (posterior reversible encephalopathy syndrome) Current Visit: Yes Comment: MRI c/w PRES, patient admitted in the setting of signifiant HTN. BPs were fairly well controlled for most of the day on increase Amlodipine and Losartan, in the evening they began to increase again and patient was started on PO hydralazine 10 mg TID, overnight she required additional IV hydralazine, will increase dose today to 25 mg TID. HCTZ interacts with her Tikosyn and HR has been low at times so would avoid beta- belle. Immunosuppresive medications can contribute to this as well, Azathioprine has been identified in case reports, spoke with Dr. Burdick and will hold Azathioprine. This may be the cause of the patient's headache. Interestingly, during outpatient appoints where she was seen for these symptoms, BPs were WNL according to notes. Symptoms from PRES can take days-weeks to resolve. (3) UTI (urinary tract infection) Current Visit: Yes Comment: Patient positive UA and increased urinary frequency. Will continue CTX 1 g daily for now, awaiting culture data. (4) Troponin I above reference range Current Visit: Yes Comment: No chest pain. Troponins peaked, likely due to demand from significant HTN (5) Afib Current Visit: No Comment: Paroxysmal, patient currently in sinus. Continue Tikosyn. Eliquis. (6) Psoriatic arthritis Current Visit: Yes Comment: Holding Azathioprine. Continue low dose prednisone. (7) Chronic pain Current Visit: No Comment: Pain is not controlled, patient to ask to bring in home long acting Dilaudid. Continue Dilaudid prn dilaudid. (8) CVID (common variable immunodeficiency) Current Visit: Yes Comment: On outpatient IVIG (9) Hypothyroid Current Visit: No Comment: Continue synthroid (10) DVT prophylaxis Current Visit: No Comment: continue Eliquis Status and Disposition: Inpatient for BP monitoring, IV ABx
--- NOTE | 2016-12-23 15:33 | PN ---
Hospitalist Progress Note Spoke with Dr. Terry regarding patient's outpatient pain regimen. He had been titrating down as an outpatient due to concerns that may be contributing to her confusion. She was on ER Dilaudid (Exalgo) 40 mg daily as recently as one month ago. Have started with 16 mg daily now with additional short acting prn available, can consider titrating up if pain is not controlled.
[2016-12-23] MEDS: MINOCYCLINE 50 MG PO SCH (17:37)
[2016-12-23] MEDS: cefTRIAXone VIAL(*) 1,000 MG in NS 0.9% 50 ML* 50 ML IVPB SCH (17:45)
[2016-12-23] MEDS: Montelukast Sodium TAB* 10 MG PO SCH (20:16)
[2016-12-23] MEDS: Famotidine TAB* 20 MG PO SCH (20:16)
[2016-12-24] MEDS: Levothyroxine TAB* 137 MCG TAB PO SCH (05:23)
[2016-12-24] MEDS: HYDROmorphone TAB* 4 MG PO PRN ×5 (05:25→21:50)
[2016-12-24] MEDS: predniSONE TAB* 5 MG PO SCH (07:56)
[2016-12-24] MEDS: amLODIPine TAB* 5 MG PO SCH (07:56)
[2016-12-24] MEDS: Apixaban* 5 MG TAB PO SCH ×2 (07:56→19:37)
[2016-12-24] MEDS: Venlafaxine EXT RELEASE CAP* 75 MG PO SCH (07:56)
[2016-12-24] MEDS: hydrALAZINE TAB* 25 MG PO SCH ×3 (07:56→19:37)
[2016-12-24] MEDS: Losartan TAB* 25 MG PO SCH (07:56)
[2016-12-24] MEDS: Omeprazole CAP* 20 MG PO SCH (07:56)
[2016-12-24] MEDS: Docusate CAP* 100 MG PO SCH (07:56)
[2016-12-24] MEDS: Dofetilide CAP* 500 MCG PO SCH ×2 (07:56→19:37)
[2016-12-24] MEDS: HYDROMORPHONE 16 MG PO SCH (07:57)
[2016-12-24] MEDS: Mometasone 220 MCG MDI INH SCH ×2 (08:49→19:27)
--- NOTE | 2016-12-24 14:35 | PN ---
Subjective Date of Service: 12/24/16 Interval History: Headache controlled adequately with short- and long-acting hydromorphone. Walked 10 ft with PT. Patient feels she is not strong enough to go home. Family History: Unchanged from Admission Social History: Unchanged from Admission Past Medical History: Unchanged from Admission Objective Active Medications: Acetaminophen (Tylenol Tab*) 650 mg PO Q4H PRN PRN Reason: FEVER/PAIN Last Admin: 12/23/16 20:15 Dose: 650 mg Albuterol (Ventolin 2.5 Mg/3 Ml Neb.Samreen*) 2.5 mg INH Q6HR PRN PRN Reason: SHORTNESS OF BREATH Amlodipine Besylate (Norvasc Tab*) 10 mg PO DAILY [facility] Last Admin: 12/24/16 07:56 Dose: 10 mg Apixaban (Eliquis*) 5 mg PO BID [facility] Last Admin: 12/24/16 07:56 Dose: 5 mg Docusate Sodium (Colace Cap*) 200 mg PO DAILY [facility] Last Admin: 12/24/16 07:56 Dose: 200 mg Dofetilide (Tikosyn Cap*) 500 mcg PO BID [facility] Last Admin: 12/24/16 07:56 Dose: 500 mcg Famotidine (Pepcid Tab*) 40 mg PO BEDTIME BIJU PRN Reason: Protocol Last Admin: 12/23/16 20:16 Dose: 40 mg Hydralazine HCl (Apresoline Tab*) 25 mg PO 0900,1400,2100 [facility] Last Admin: 12/24/16 07:56 Dose: 25 mg Hydralazine HCl (Apresoline Iv*) 10 mg IV SLOW PU Q2H PRN PRN Reason: BLOOD PRESSURE Hydromorphone HCl (Dilaudid Tab*) 4 mg PO Q6HR PRN PRN Reason: PAIN Last Admin: 12/24/16 11:27 Dose: 4 mg Hydromorphone HCl (Exalgo (Nf)) 16 mg PO DAILY [facility] Last Admin: 12/24/16 07:57 Dose: 16 mg Ceftriaxone Sodium 1,000 mg/ (Sodium Chloride) 50 mls @ 200 mls/hr IVPB Q24H [facility] Last Admin: 12/23/16 17:45 Dose: 200 mls/hr Levothyroxine Sodium (Synthroid Tab*) 137 mcg PO DAILY@0600 [facility] Last Admin: 12/24/16 05:23 Dose: 137 mcg Losartan Potassium (Cozaar Tab*) 100 mg PO DAILY [facility] Last Admin: 12/24/16 07:56 Dose: 100 mg Minocycline HCl (Minocycline (Nf)) 100 mg PO QPM [facility] Last Admin: 12/23/16 17:37 Dose: 100 mg Mometasone Furoate (Asmanex 220 Mcg Mdi *) 2 puff INH BID [facility] Last Admin: 12/24/16 08:49 Dose: Not Given Montelukast Sodium (Singulair Tab*) 10 mg PO BEDTIME [facility] Last Admin: 12/23/16 20:16 Dose: 10 mg Omeprazole (Prilosec Cap*) 20 mg PO DAILY@0730 [facility] Last Admin: 12/24/16 07:56 Dose: 20 mg Prednisone (Deltasone Tab*) 5 mg PO DAILY WITH MEAL [facility] Last Admin: 12/24/16 07:56 Dose: 5 mg Venlafaxine HCl (Effexor Xr Cap*) 75 mg PO DAILY [facility] Last Admin: 12/24/16 07:56 Dose: 75 mg Vital Signs 12/23/16 12/23/16 12/23/16 15:35 17:36 19:23 Temperature 98.5 F 98.6 F Pulse Rate 65 69 Respiratory 17 18 17 Rate Blood Pressure 152/63 165/58 (mmHg) O2 Sat by Pulse 96 98 Oximetry 12/23/16 12/23/16 12/23/16 19:36 20:00 23:21 Temperature Pulse Rate Respiratory 17 17 18 Rate Blood Pressure (mmHg) O2 Sat by Pulse Oximetry 12/23/16 12/24/16 12/24/16 23:41 01:21 04:18 Temperature 98.0 F 98.0 F Pulse Rate 57 66 Respiratory 16 17 16 Rate Blood Pressure 165/74 178/89 (mmHg) O2 Sat by Pulse 94 91 Oximetry 12/24/16 12/24/16 12/24/16 05:25 07:25 07:34 Temperature 97.8 F Pulse Rate 70 72 Respiratory 18 16 18 Rate Blood Pressure 168/71 179/79 (mmHg) O2 Sat by Pulse 97 Oximetry 12/24/16 12/24/16 12/24/16 07:57 08:00 09:57 Temperature Pulse Rate Respiratory 16 16 16 Rate Blood Pressure (mmHg) O2 Sat by Pulse Oximetry 12/24/16 12/24/16 11:03 11:27 Temperature 98.6 F Pulse Rate 62 Respiratory 18 Rate Blood Pressure 148/59 (mmHg) O2 Sat by Pulse 94 Oximetry Oxygen Devices in Use Now: None Appearance: Alert, partly up in bed. In good spirits. Looks comfortable. Eyes: No Scleral Icterus Ears/Nose/Mouth/Throat: Clear Oropharnyx, Mucous Membranes Moist Neck: NL Appearance and Movements; NL JVP, No Thyroid Enlargement, Masses Respiratory: Symmetrical Chest Expansion and Respiratory Effort, Clear to Auscultation, Clear to Percussion Cardiovascular: RRR, No Edema, - - 2-3/6 systolic murmur across precordium Extremities: No Edema, No Clubbing, Cyanosis, - Skin: No Rash or Ulcers, No Nodules or Sclerosis, - Neurological: Alert and Oriented x 3, NL Sensation Result Diagrams: 12/22/16 09:30 12/23/16 04:47 Additional Lab and Data: Lab Results 12/21/16 12/21/16 12/21/16 Range/Units 15:55 15:55 15:55 WBC 4.3 (3.5-10.8) 10^3/ul RBC 4.78 (4.0-5.4) 10^6/ul Hgb 14.9 (12.0-16.0) g/dl Hct 44 (35-47) % MCV 92 (80-97) fL MCH 31 (27-31) pg MCHC 34 (31-36) g/dl RDW 15 (10.5-15) % Plt Count 153 (150-450) 10^3/ul MPV 8 (7.4-10.4) um3 Neut % (Auto) 62.7 (38-83) % Lymph % (Auto) 19.7 L (25-47) % Craven % (Auto) 8.0 (1-9) % Eos % (Auto) 9.1 H (0-6) % Baso % (Auto) 0.5 (0-2) % Absolute Neuts (auto) 2.7 (1.5-7.7) 10^3/ul Absolute Lymphs (auto) 0.8 L (1.0-4.8) 10^3/ul Absolute Monos (auto) 0.3 (0-0.8) 10^3/ul Absolute Eos (auto) 0.4 (0-0.6) 10^3/ul Absolute Basos (auto) 0 (0-0.2) 10^3/ul Absolute Nucleated RBC 0.01 10^3/ul Nucleated RBC % 0.2 INR (Anticoag Therapy) 1.02 (0.89-1.11) APTT 23.1 L (26.0-36.3) seconds Sodium 128 L (133-145) mmol/L Potassium 3.5 (3.5-5.0) mmol/L Chloride 93 L (101-111) mmol/L Carbon Dioxide 26 (22-32) mmol/L Anion Gap 9 (2-11) mmol/L BUN 6 (6-24) mg/dL Creatinine 0.50 L (0.51-0.95) mg/dL Est GFR ( Amer) 154.3 (>60) Est GFR (Non-Af Amer) 120.0 (>60) BUN/Creatinine Ratio 12.0 (8-20) Glucose 120 H (70-100) mg/dL Lactic Acid (0.5-2.0) mmol/L Calcium 9.7 (8.6-10.3) mg/dL Magnesium 1.5 L (1.9-2.7) mg/dL Total Bilirubin 0.40 (0.2-1.0) mg/dL AST 39 (13-39) U/L ALT 17 (7-52) U/L Alkaline Phosphatase 81 (34-104) U/L Ammonia (16-53) mol/L Total Creatine Kinase 52 (10-223) U/L CK-MB (CK-2) 5.7 (0.6-6.3) ng/mL Troponin I 0.07 H* (<0.04) ng/mL C-Reactive Protein 8.83 H (< 5.00) mg/L B-Natriuretic Peptide ( - 100) pg/mL Total Protein 7.0 (6.4-8.9) g/dL Albumin 3.8 (3.2-5.2) g/dL Globulin 3.2 (2-4) g/dL Albumin/Globulin Ratio 1.2 (1-3) Lipase 24 (11.0-82.0) U/L TSH 3.71 (0.34-5.60) mcIU/mL Salicylates < 2.50 (<30) mg/dL Acetaminophen < 15 mcg/mL Serum Alcohol < 10 (<10) mg/dL 12/21/16 12/21/16 Range/Units 15:55 15:55 WBC (3.5-10.8) 10^3/ul RBC (4.0-5.4) 10^6/ul Hgb (12.0-16.0) g/dl Hct (35-47) % MCV (80-97) fL MCH (27-31) pg MCHC (31-36) g/dl RDW (10.5-15) % Plt Count (150-450) 10^3/ul MPV (7.4-10.4) um3 Neut % (Auto) (38-83) % Lymph % (Auto) (25-47) % Craven % (Auto) (1-9) % Eos % (Auto) (0-6) % Baso % (Auto) (0-2) % Absolute Neuts (auto) (1.5-7.7) 10^3/ul Absolute Lymphs (auto) (1.0-4.8) 10^3/ul Absolute Monos (auto) (0-0.8) 10^3/ul Absolute Eos (auto) (0-0.6) 10^3/ul Absolute Basos (auto) (0-0.2) 10^3/ul Absolute Nucleated RBC 10^3/ul Nucleated RBC % INR (Anticoag Therapy) (0.89-1.11) APTT (26.0-36.3) seconds Sodium (133-145) mmol/L Potassium (3.5-5.0) mmol/L Chloride (101-111) mmol/L Carbon Dioxide (22-32) mmol/L Anion Gap (2-11) mmol/L BUN (6-24) mg/dL Creatinine (0.51-0.95) mg/dL Est GFR ( Amer) (>60) Est GFR (Non-Af Amer) (>60) BUN/Creatinine Ratio (8-20) Glucose (70-100) mg/dL Lactic Acid 0.8 (0.5-2.0) mmol/L Calcium (8.6-10.3) mg/dL Magnesium (1.9-2.7) mg/dL Total Bilirubin (0.2-1.0) mg/dL AST (13-39) U/L ALT (7-52) U/L Alkaline Phosphatase (34-104) U/L Ammonia 43 (16-53) mol/L Total Creatine Kinase (10-223) U/L CK-MB (CK-2) (0.6-6.3) ng/mL Troponin I (<0.04) ng/mL C-Reactive Protein (< 5.00) mg/L B-Natriuretic Peptide 78 ( - 100) pg/mL Total Protein (6.4-8.9) g/dL Albumin (3.2-5.2) g/dL Globulin (2-4) g/dL Albumin/Globulin Ratio (1-3) Lipase (11.0-82.0) U/L TSH (0.34-5.60) mcIU/mL Salicylates (<30) mg/dL Acetaminophen mcg/mL Serum Alcohol (<10) mg/dL Microbiology and Other Data: Microbiology 12/21/16 20:10 Nasal Screen MRSA (PCR)(DEVIN) - Final Nasal Mrsa Negative Assess/Plan/Problems-Billing Assessment: Headache, confusion, recurrent falls in a 76 yo F with a complex medical history including psoriatic arthritis on Azathioprine, 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 Work-up has revealed evidence of PRES on MRI, UTI and elevated carbamazepine level - Patient Problems (1) PRES (posterior reversible encephalopathy syndrome) Current Visit: Yes Status: Acute Code(s): I67.83 - POSTERIOR REVERSIBLE ENCEPHALOPATHY SYNDROME SNOMED Code(s): 269401020 Comment: MRI c/w PRES, patient admitted in the setting of signifiant HTN. BPs better as of 12/24. Symptoms from PRES can take days-weeks to resolve. Will ask for PMRU eval. (2) UTI (urinary tract infection) Current Visit: Yes Status: Acute (3) Afib Current Visit: No Status: Acute Priority: High Code(s): I48.91 - UNSPECIFIED ATRIAL FIBRILLATION SNOMED Code(s): 13260871 Comment: Paroxysmal, patient currently in sinus. Continue Tikosyn. Eliquis. (4) Troponin I above reference range Current Visit: Yes Status: Acute Code(s): R74.8 - ABNORMAL LEVELS OF OTHER SERUM ENZYMES SNOMED Code(s): 137281038 Comment: No chest pain. Troponins peaked, likely due to demand from significant HTN (5) CVID (common variable immunodeficiency) Current Visit: Yes Status: Acute Code(s): D83.9 - COMMON VARIABLE IMMUNODEFICIENCY, UNSPECIFIED SNOMED Code(s): 53144278 Comment: On outpatient IVIG, followed by Dr. Burdick. (6) Psoriatic arthritis Current Visit: Yes Status: Acute Code(s): L40.50 - ARTHROPATHIC PSORIASIS, UNSPECIFIED SNOMED Code(s): 063571928 Comment: Holding Azathioprine. Continue low dose prednisone. Folowed by Dr. Burdick. (7) Hypertension Current Visit: No Status: Acute Code(s): I10 - ESSENTIAL (PRIMARY) HYPERTENSION SNOMED Code(s): 56166884 Comment: Continue increased doses of amlodipine and losartan. (8) Hypothyroid Current Visit: No Status: Chronic Code(s): E03.9 - HYPOTHYROIDISM, UNSPECIFIED SNOMED Code(s): 73926187 Comment: Continue synthroid Status and Disposition: Inpatient for BP monitoring, IV ABx
[2016-12-24] MEDS: Acetaminophen TAB* 325 MG PO PRN (17:45)
[2016-12-24] MEDS: MINOCYCLINE 50 MG PO SCH (18:31)
[2016-12-24] MEDS: cefTRIAXone VIAL(*) 1,000 MG in NS 0.9% 50 ML* 50 ML IVPB SCH (18:32)
[2016-12-24] MEDS: hydrALAZINE IV* 20 MG/ML VIAL IV SLOW PU PRN ×2 (19:32→23:50)
[2016-12-24] MEDS: Montelukast Sodium TAB* 10 MG PO SCH (19:37)
[2016-12-24] MEDS: Famotidine TAB* 20 MG PO SCH (19:37)
[2016-12-25] MEDS: HYDROmorphone TAB* 4 MG PO PRN ×6 (00:50→23:45)
[2016-12-25] MEDS ORDERED: Ondansetron INJ* 2 MG/ML VIAL IV PRN (03:35)
[2016-12-25] MEDS: hydrALAZINE IV* 20 MG/ML VIAL IV SLOW PU PRN (03:52)
[2016-12-25] MEDS: Levothyroxine TAB* 137 MCG TAB PO SCH (05:38)
[2016-12-25] MEDS: Venlafaxine EXT RELEASE CAP* 75 MG PO SCH (07:33)
[2016-12-25] MEDS: Losartan TAB* 25 MG PO SCH (07:33)
[2016-12-25] MEDS: predniSONE TAB* 5 MG PO SCH (07:33)
[2016-12-25] MEDS: hydrALAZINE TAB* 25 MG PO SCH ×3 (07:33→21:31)
[2016-12-25] MEDS: Omeprazole CAP* 20 MG PO SCH (07:33)
[2016-12-25] MEDS: Apixaban* 5 MG TAB PO SCH ×2 (07:34→21:33)
[2016-12-25] MEDS: amLODIPine TAB* 5 MG PO SCH (07:34)
[2016-12-25] MEDS: Docusate CAP* 100 MG PO SCH (07:34)
[2016-12-25] MEDS: Dofetilide CAP* 500 MCG PO SCH ×2 (07:35→21:30)
[2016-12-25] MEDS: Mometasone 220 MCG MDI INH SCH ×2 (08:13→20:19)
[2016-12-25] MEDS: HYDROMORPHONE 16 MG PO SCH (08:38)
[2016-12-25] MEDS: Acetaminophen TAB* 325 MG PO PRN ×3 (09:39→23:44)
--- NOTE | 2016-12-25 13:06 | PN ---
Subjective Date of Service: 12/25/16 Interval History: C/O headache, little change. She walked "a lot" yesterday (100ft). Family History: Unchanged from Admission Social History: Unchanged from Admission Past Medical History: Unchanged from Admission Objective Active Medications: Acetaminophen (Tylenol Tab*) 650 mg PO Q4H PRN PRN Reason: FEVER/PAIN Last Admin: 12/25/16 09:39 Dose: 650 mg Albuterol (Ventolin 2.5 Mg/3 Ml Neb.Samreen*) 2.5 mg INH Q6HR PRN PRN Reason: SHORTNESS OF BREATH Amlodipine Besylate (Norvasc Tab*) 10 mg PO DAILY [facility] Last Admin: 12/25/16 07:34 Dose: 10 mg Apixaban (Eliquis*) 5 mg PO BID [facility] Last Admin: 12/25/16 07:34 Dose: 5 mg Docusate Sodium (Colace Cap*) 200 mg PO DAILY [facility] Last Admin: 12/25/16 07:34 Dose: 200 mg Dofetilide (Tikosyn Cap*) 500 mcg PO BID [facility] Last Admin: 12/25/16 07:35 Dose: 500 mcg Famotidine (Pepcid Tab*) 40 mg PO BEDTIME [facility] PRN Reason: Protocol Last Admin: 12/24/16 19:37 Dose: 40 mg Hydralazine HCl (Apresoline Tab*) 25 mg PO 0900,1400,2100 [facility] Last Admin: 12/25/16 07:33 Dose: 25 mg Hydromorphone HCl (Dilaudid Tab*) 4 mg PO Q3H PRN PRN Reason: PAIN Last Admin: 12/25/16 10:35 Dose: 4 mg Hydromorphone HCl (Exalgo (Nf)) 16 mg PO BID [facility] Ceftriaxone Sodium 1,000 mg/ (Sodium Chloride) 50 mls @ 200 mls/hr IVPB Q24H [facility] Last Admin: 12/24/16 18:32 Dose: 200 mls/hr Levothyroxine Sodium (Synthroid Tab*) 137 mcg PO DAILY@0600 [facility] Last Admin: 12/25/16 05:38 Dose: 137 mcg Losartan Potassium (Cozaar Tab*) 100 mg PO DAILY [facility] Last Admin: 12/25/16 07:33 Dose: 100 mg Metoprolol Tartrate (Lopressor Tab*) 25 mg PO BID [facility] Minocycline HCl (Minocycline (Nf)) 100 mg PO QPM [facility] Last Admin: 12/24/16 18:31 Dose: 100 mg Mometasone Furoate (Asmanex 220 Mcg Mdi *) 2 puff INH BID [facility] Last Admin: 12/25/16 08:13 Dose: Not Given Montelukast Sodium (Singulair Tab*) 10 mg PO BEDTIME [facility] Last Admin: 12/24/16 19:37 Dose: 10 mg Omeprazole (Prilosec Cap*) 20 mg PO DAILY@0730 [facility] Last Admin: 12/25/16 07:33 Dose: 20 mg Ondansetron HCl (Zofran Inj*) 4 mg IV Q4H PRN PRN Reason: NAUSEA Oxycodone HCl (Roxycodone Tab*) 10 mg PO Q6H PRN PRN Reason: PAIN - SEVERE Prednisone (Deltasone Tab*) 5 mg PO DAILY WITH MEAL [facility] Last Admin: 12/25/16 07:33 Dose: 5 mg Venlafaxine HCl (Effexor Xr Cap*) 75 mg PO DAILY [facility] Last Admin: 12/25/16 07:33 Dose: 75 mg Vital Signs 12/24/16 12/24/16 12/24/16 13:27 14:56 15:44 Temperature 98.0 F Pulse Rate 63 Respiratory 16 18 16 Rate Blood Pressure 148/60 (mmHg) O2 Sat by Pulse 96 Oximetry 12/24/16 12/24/16 12/24/16 17:44 18:47 19:00 Temperature Pulse Rate Respiratory 16 16 18 Rate Blood Pressure (mmHg) O2 Sat by Pulse Oximetry 12/24/16 12/24/16 12/24/16 19:20 20:47 21:50 Temperature 98.2 F Pulse Rate 69 Respiratory 20 16 18 Rate Blood Pressure 178/79 (mmHg) O2 Sat by Pulse 99 Oximetry 12/24/16 12/24/16 12/25/16 23:50 23:53 00:50 Temperature 99.3 F Pulse Rate 79 Respiratory 18 16 18 Rate Blood Pressure 191/75 (mmHg) O2 Sat by Pulse 97 Oximetry 12/25/16 12/25/16 12/25/16 02:50 03:32 03:48 Temperature 99.4 F Pulse Rate 83 Respiratory 16 16 18 Rate Blood Pressure 175/83 (mmHg) O2 Sat by Pulse 98 Oximetry 12/25/16 12/25/16 12/25/16 05:48 07:15 07:32 Temperature 99.6 F Pulse Rate 91 Respiratory 16 18 16 Rate Blood Pressure 185/72 (mmHg) O2 Sat by Pulse 94 Oximetry 12/25/16 12/25/16 12/25/16 08:00 08:38 09:32 Temperature Pulse Rate Respiratory 16 16 18 Rate Blood Pressure (mmHg) O2 Sat by Pulse Oximetry 12/25/16 10:35 Temperature Pulse Rate Respiratory 16 Rate Blood Pressure (mmHg) O2 Sat by Pulse Oximetry Oxygen Devices in Use Now: None Appearance: Alert, supine in bed. Looks discouraged. Eyes: No Scleral Icterus Respiratory: Symmetrical Chest Expansion and Respiratory Effort, Clear to Auscultation, Clear to Percussion Cardiovascular: RRR, No Edema, - - 2-3/6 systolic murmur across precordium Extremities: No Edema, No Clubbing, Cyanosis, - Skin: No Rash or Ulcers, No Nodules or Sclerosis, - Neurological: Alert and Oriented x 3, NL Sensation Result Diagrams: 12/22/16 09:30 12/23/16 04:47 Additional Lab and Data: Lab Results 12/21/16 12/21/16 12/21/16 Range/Units 15:55 15:55 15:55 WBC 4.3 (3.5-10.8) 10^3/ul RBC 4.78 (4.0-5.4) 10^6/ul Hgb 14.9 (12.0-16.0) g/dl Hct 44 (35-47) % MCV 92 (80-97) fL MCH 31 (27-31) pg MCHC 34 (31-36) g/dl RDW 15 (10.5-15) % Plt Count 153 (150-450) 10^3/ul MPV 8 (7.4-10.4) um3 Neut % (Auto) 62.7 (38-83) % Lymph % (Auto) 19.7 L (25-47) % [place] % (Auto) 8.0 (1-9) % Eos % (Auto) 9.1 H (0-6) % Baso % (Auto) 0.5 (0-2) % Absolute Neuts (auto) 2.7 (1.5-7.7) 10^3/ul Absolute Lymphs (auto) 0.8 L (1.0-4.8) 10^3/ul Absolute Monos (auto) 0.3 (0-0.8) 10^3/ul Absolute Eos (auto) 0.4 (0-0.6) 10^3/ul Absolute Basos (auto) 0 (0-0.2) 10^3/ul Absolute Nucleated RBC 0.01 10^3/ul Nucleated RBC % 0.2 INR (Anticoag Therapy) 1.02 (0.89-1.11) APTT 23.1 L (26.0-36.3) seconds Sodium 128 L (133-145) mmol/L Potassium 3.5 (3.5-5.0) mmol/L Chloride 93 L (101-111) mmol/L Carbon Dioxide 26 (22-32) mmol/L Anion Gap 9 (2-11) mmol/L BUN 6 (6-24) mg/dL Creatinine 0.50 L (0.51-0.95) mg/dL Est GFR ( Amer) 154.3 (>60) Est GFR (Non-Af Amer) 120.0 (>60) BUN/Creatinine Ratio 12.0 (8-20) Glucose 120 H (70-100) mg/dL Lactic Acid (0.5-2.0) mmol/L Calcium 9.7 (8.6-10.3) mg/dL Magnesium 1.5 L (1.9-2.7) mg/dL Total Bilirubin 0.40 (0.2-1.0) mg/dL AST 39 (13-39) U/L ALT 17 (7-52) U/L Alkaline Phosphatase 81 (34-104) U/L Ammonia (16-53) mol/L Total Creatine Kinase 52 (10-223) U/L CK-MB (CK-2) 5.7 (0.6-6.3) ng/mL Troponin I 0.07 H* (<0.04) ng/mL C-Reactive Protein 8.83 H (< 5.00) mg/L B-Natriuretic Peptide ( - 100) pg/mL Total Protein 7.0 (6.4-8.9) g/dL Albumin 3.8 (3.2-5.2) g/dL Globulin 3.2 (2-4) g/dL Albumin/Globulin Ratio 1.2 (1-3) Lipase 24 (11.0-82.0) U/L TSH 3.71 (0.34-5.60) mcIU/mL Salicylates < 2.50 (<30) mg/dL Acetaminophen < 15 mcg/mL Serum Alcohol < 10 (<10) mg/dL 12/21/16 12/21/16 Range/Units 15:55 15:55 WBC (3.5-10.8) 10^3/ul RBC (4.0-5.4) 10^6/ul Hgb (12.0-16.0) g/dl Hct (35-47) % MCV (80-97) fL MCH (27-31) pg MCHC (31-36) g/dl RDW (10.5-15) % Plt Count (150-450) 10^3/ul MPV (7.4-10.4) um3 Neut % (Auto) (38-83) % Lymph % (Auto) (25-47) % [place] % (Auto) (1-9) % Eos % (Auto) (0-6) % Baso % (Auto) (0-2) % Absolute Neuts (auto) (1.5-7.7) 10^3/ul Absolute Lymphs (auto) (1.0-4.8) 10^3/ul Absolute Monos (auto) (0-0.8) 10^3/ul Absolute Eos (auto) (0-0.6) 10^3/ul Absolute Basos (auto) (0-0.2) 10^3/ul Absolute Nucleated RBC 10^3/ul Nucleated RBC % INR (Anticoag Therapy) (0.89-1.11) APTT (26.0-36.3) seconds Sodium (133-145) mmol/L Potassium (3.5-5.0) mmol/L Chloride (101-111) mmol/L Carbon Dioxide (22-32) mmol/L Anion Gap (2-11) mmol/L BUN (6-24) mg/dL Creatinine (0.51-0.95) mg/dL Est GFR ( Amer) (>60) Est GFR (Non-Af Amer) (>60) BUN/Creatinine Ratio (8-20) Glucose (70-100) mg/dL Lactic Acid 0.8 (0.5-2.0) mmol/L Calcium (8.6-10.3) mg/dL Magnesium (1.9-2.7) mg/dL Total Bilirubin (0.2-1.0) mg/dL AST (13-39) U/L ALT (7-52) U/L Alkaline Phosphatase (34-104) U/L Ammonia 43 (16-53) mol/L Total Creatine Kinase (10-223) U/L CK-MB (CK-2) (0.6-6.3) ng/mL Troponin I (<0.04) ng/mL C-Reactive Protein (< 5.00) mg/L B-Natriuretic Peptide 78 ( - 100) pg/mL Total Protein (6.4-8.9) g/dL Albumin (3.2-5.2) g/dL Globulin (2-4) g/dL Albumin/Globulin Ratio (1-3) Lipase (11.0-82.0) U/L TSH (0.34-5.60) mcIU/mL Salicylates (<30) mg/dL Acetaminophen mcg/mL Serum Alcohol (<10) mg/dL Microbiology and Other Data: Microbiology 12/21/16 20:10 Nasal Screen MRSA (PCR)(DEVIN) - Final Nasal Mrsa Negative Assess/Plan/Problems-Billing Assessment: Headache, confusion, recurrent falls in a 76 yo F with a complex medical history including psoriatic arthritis on Azathioprine, 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 Work-up has revealed evidence of PRES on MRI, UTI and elevated carbamazepine level - Patient Problems (1) PRES (posterior reversible encephalopathy syndrome) Current Visit: Yes Status: Acute Code(s): I67.83 - POSTERIOR REVERSIBLE ENCEPHALOPATHY SYNDROME SNOMED Code(s): 344203494 Comment: MRI c/w PRES, patient admitted in the setting of signifiant HTN. BPs better as of 12/24. Add metoprolol 25 mg bid, two doses on 12/25. Symptoms from PRES can take days-weeks to resolve. Will ask for PMRU eval. (2) UTI (urinary tract infection) Current Visit: Yes Status: Acute (3) Afib Current Visit: No Status: Acute Priority: High Code(s): I48.91 - UNSPECIFIED ATRIAL FIBRILLATION SNOMED Code(s): 00307264 Comment: Paroxysmal, patient currently in sinus. Continue Tikosyn. Eliquis. (4) Troponin I above reference range Current Visit: Yes Status: Acute Code(s): R74.8 - ABNORMAL LEVELS OF OTHER SERUM ENZYMES SNOMED Code(s): 733180160 Comment: No chest pain. Troponins peaked, likely due to demand from significant HTN (5) CVID (common variable immunodeficiency) Current Visit: Yes Status: Acute Code(s): D83.9 - COMMON VARIABLE IMMUNODEFICIENCY, UNSPECIFIED SNOMED Code(s): 05830604 Comment: On outpatient IVIG, followed by Dr. Burdick. (6) Psoriatic arthritis Current Visit: Yes Status: Acute Code(s): L40.50 - ARTHROPATHIC PSORIASIS, UNSPECIFIED SNOMED Code(s): 031586619 Comment: Holding Azathioprine. Continue prednisone 5 mg daily. Folowed by Dr. Burdick. (7) Hypertension Current Visit: No Status: Acute Code(s): I10 - ESSENTIAL (PRIMARY) HYPERTENSION SNOMED Code(s): 47810501 Comment: Continue increased doses of amlodipine and losartan. (8) Hypothyroid Current Visit: No Status: Chronic Code(s): E03.9 - HYPOTHYROIDISM, UNSPECIFIED SNOMED Code(s): 58731279 Comment: Continue synthroid Status and Disposition: Inpatient for BP monitoring, IV ABx
[2016-12-25] MEDS: oxyCODONE TAB* 5 MG TAB PO PRN ×2 (13:12→19:25)
[2016-12-25] MEDS: Metoprolol Tartrate TAB* 25 MG PO SCH ×2 (13:12→21:31)
[2016-12-25] MEDS: MINOCYCLINE 50 MG PO SCH (17:12)
[2016-12-25] MEDS: cefTRIAXone VIAL(*) 1,000 MG in NS 0.9% 50 ML* 50 ML IVPB SCH (17:35)
[2016-12-25] MEDS: Hydromorphone ER TAB(NF) 16 MG TAB PO SCH (21:27)
[2016-12-25] MEDS: Montelukast Sodium TAB* 10 MG PO SCH (21:29)
[2016-12-25] MEDS: Famotidine TAB* 20 MG PO SCH (21:30)
[2016-12-26] MEDS: oxyCODONE TAB* 5 MG TAB PO PRN ×2 (03:39→16:19)
[2016-12-26] MEDS: HYDROmorphone TAB* 4 MG PO PRN ×4 (05:52→17:33)
[2016-12-26] MEDS: Levothyroxine TAB* 137 MCG TAB PO SCH (05:53)
[2016-12-26] MEDS: Mometasone 220 MCG MDI INH SCH ×2 (09:30→21:30)
[2016-12-26] MEDS: Omeprazole CAP* 20 MG PO SCH (09:48)
[2016-12-26] MEDS: Losartan TAB* 25 MG PO SCH (09:48)
[2016-12-26] MEDS: amLODIPine TAB* 5 MG PO SCH (09:48)
[2016-12-26] MEDS: Venlafaxine EXT RELEASE CAP* 75 MG PO SCH (09:48)
[2016-12-26] MEDS: hydrALAZINE TAB* 25 MG PO SCH ×3 (09:49→21:20)
[2016-12-26] MEDS: Docusate CAP* 100 MG PO SCH (09:49)
[2016-12-26] MEDS: predniSONE TAB* 5 MG PO SCH (09:49)
[2016-12-26] MEDS: Metoprolol Tartrate TAB* 25 MG PO SCH ×2 (09:49→21:21)
[2016-12-26] MEDS: Apixaban* 5 MG TAB PO SCH ×2 (09:49→21:21)
[2016-12-26] MEDS: Dofetilide CAP* 500 MCG PO SCH ×2 (09:53→21:22)
[2016-12-26] MEDS: Hydromorphone ER TAB(NF) 16 MG TAB PO SCH ×2 (09:53→21:23)
--- NOTE | 2016-12-26 13:04 | PN ---
Subjective Date of Service: 12/26/16 Interval History: She feels much better. Headache down from 10 to 6. No new c/o. Appetite fair. Family History: Unchanged from Admission Social History: Unchanged from Admission Past Medical History: Unchanged from Admission Objective Active Medications: Acetaminophen (Tylenol Tab*) 650 mg PO Q4H PRN PRN Reason: FEVER/PAIN Last Admin: 12/25/16 23:44 Dose: 650 mg Albuterol (Ventolin 2.5 Mg/3 Ml Neb.Samreen*) 2.5 mg INH Q6HR PRN PRN Reason: SHORTNESS OF BREATH Amlodipine Besylate (Norvasc Tab*) 10 mg PO DAILY [facility] Last Admin: 12/26/16 09:48 Dose: 10 mg Apixaban (Eliquis*) 5 mg PO BID [facility] Last Admin: 12/26/16 09:49 Dose: 5 mg Docusate Sodium (Colace Cap*) 200 mg PO DAILY [facility] Last Admin: 12/26/16 09:49 Dose: 200 mg Dofetilide (Tikosyn Cap*) 500 mcg PO BID [facility] Last Admin: 12/26/16 09:53 Dose: 500 mcg Famotidine (Pepcid Tab*) 40 mg PO BEDTIME [facility] PRN Reason: Protocol Last Admin: 12/25/16 21:30 Dose: 40 mg Hydralazine HCl (Apresoline Tab*) 25 mg PO 0900,1400,2100 [facility] Last Admin: 12/26/16 09:49 Dose: 25 mg Hydromorphone HCl (Dilaudid Tab*) 4 mg PO Q3H PRN PRN Reason: PAIN Last Admin: 12/26/16 09:54 Dose: 4 mg Hydromorphone HCl (Exalgo (Nf)) 16 mg PO BID [facility] Last Admin: 12/26/16 09:53 Dose: 16 mg Ceftriaxone Sodium 1,000 mg/ (Sodium Chloride) 50 mls @ 200 mls/hr IVPB Q24H [facility] Last Admin: 12/25/16 17:35 Dose: 200 mls/hr Levothyroxine Sodium (Synthroid Tab*) 137 mcg PO DAILY@0600 [facility] Last Admin: 12/26/16 05:53 Dose: 137 mcg Losartan Potassium (Cozaar Tab*) 100 mg PO DAILY [facility] Last Admin: 12/26/16 09:48 Dose: 100 mg Metoprolol Tartrate (Lopressor Tab*) 25 mg PO BID [facility] Last Admin: 12/26/16 09:49 Dose: 25 mg Minocycline HCl (Minocycline (Nf)) 100 mg PO QPM [facility] Last Admin: 12/25/16 17:12 Dose: 100 mg Mometasone Furoate (Asmanex 220 Mcg Mdi *) 2 puff INH BID [facility] Last Admin: 12/26/16 09:30 Dose: Not Given Montelukast Sodium (Singulair Tab*) 10 mg PO BEDTIME [facility] Last Admin: 12/25/16 21:29 Dose: 10 mg Omeprazole (Prilosec Cap*) 20 mg PO DAILY@0730 [facility] Last Admin: 12/26/16 09:48 Dose: 20 mg Ondansetron HCl (Zofran Inj*) 4 mg IV Q4H PRN PRN Reason: NAUSEA Oxycodone HCl (Roxycodone Tab*) 10 mg PO Q6H PRN PRN Reason: PAIN - SEVERE Last Admin: 12/26/16 03:39 Dose: 10 mg Prednisone (Deltasone Tab*) 5 mg PO DAILY WITH MEAL [facility] Last Admin: 12/26/16 09:49 Dose: 5 mg Venlafaxine HCl (Effexor Xr Cap*) 75 mg PO DAILY [facility] Last Admin: 12/26/16 09:48 Dose: 75 mg Vital Signs 12/25/16 12/25/16 12/25/16 13:12 13:50 15:12 Temperature Pulse Rate Respiratory 16 14 Rate Blood Pressure 159/70 (mmHg) O2 Sat by Pulse Oximetry 12/25/16 12/25/16 12/25/16 15:27 16:08 18:08 Temperature 98.3 F Pulse Rate 53 Respiratory 18 16 16 Rate Blood Pressure 146/72 (mmHg) O2 Sat by Pulse 92 Oximetry 12/25/16 12/25/16 12/25/16 19:25 20:00 21:25 Temperature Pulse Rate Respiratory 18 18 16 Rate Blood Pressure (mmHg) O2 Sat by Pulse Oximetry 12/25/16 12/25/16 12/25/16 21:27 22:02 23:27 Temperature 98.5 F Pulse Rate 60 Respiratory 18 20 16 Rate Blood Pressure 177/65 (mmHg) O2 Sat by Pulse 93 Oximetry 12/25/16 12/25/16 12/26/16 23:39 23:45 01:45 Temperature 98.1 F Pulse Rate 47 Respiratory 16 20 16 Rate Blood Pressure 141/44 (mmHg) O2 Sat by Pulse 96 Oximetry 12/26/16 12/26/16 12/26/16 03:39 03:40 05:39 Temperature 98.7 F Pulse Rate 55 Respiratory 18 16 18 Rate Blood Pressure 142/58 (mmHg) O2 Sat by Pulse 98 Oximetry 12/26/16 12/26/16 12/26/16 05:52 07:45 07:52 Temperature 98.4 F Pulse Rate 51 Respiratory 16 18 18 Rate Blood Pressure 147/51 (mmHg) O2 Sat by Pulse 97 Oximetry 12/26/16 12/26/16 12/26/16 08:00 09:53 09:54 Temperature Pulse Rate Respiratory 18 18 18 Rate Blood Pressure (mmHg) O2 Sat by Pulse Oximetry 12/26/16 12/26/16 12/26/16 11:30 11:53 11:54 Temperature 99.3 F Pulse Rate 52 Respiratory 16 16 16 Rate Blood Pressure 118/52 (mmHg) O2 Sat by Pulse 94 Oximetry Oxygen Devices in Use Now: None Appearance: Alert, supine in bed. In good spirits. Looks comfortable. Extremities: No Edema, No Clubbing, Cyanosis, - Skin: No Rash or Ulcers, No Nodules or Sclerosis, - Neurological: Alert and Oriented x 3, NL Sensation Result Diagrams: 12/22/16 09:30 12/23/16 04:47 Additional Lab and Data: Lab Results 12/21/16 12/21/16 12/21/16 Range/Units 15:55 15:55 15:55 WBC 4.3 (3.5-10.8) 10^3/ul RBC 4.78 (4.0-5.4) 10^6/ul Hgb 14.9 (12.0-16.0) g/dl Hct 44 (35-47) % MCV 92 (80-97) fL MCH 31 (27-31) pg MCHC 34 (31-36) g/dl RDW 15 (10.5-15) % Plt Count 153 (150-450) 10^3/ul MPV 8 (7.4-10.4) um3 Neut % (Auto) 62.7 (38-83) % Lymph % (Auto) 19.7 L (25-47) % [place] % (Auto) 8.0 (1-9) % Eos % (Auto) 9.1 H (0-6) % Baso % (Auto) 0.5 (0-2) % Absolute Neuts (auto) 2.7 (1.5-7.7) 10^3/ul Absolute Lymphs (auto) 0.8 L (1.0-4.8) 10^3/ul Absolute Monos (auto) 0.3 (0-0.8) 10^3/ul Absolute Eos (auto) 0.4 (0-0.6) 10^3/ul Absolute Basos (auto) 0 (0-0.2) 10^3/ul Absolute Nucleated RBC 0.01 10^3/ul Nucleated RBC % 0.2 INR (Anticoag Therapy) 1.02 (0.89-1.11) APTT 23.1 L (26.0-36.3) seconds Sodium 128 L (133-145) mmol/L Potassium 3.5 (3.5-5.0) mmol/L Chloride 93 L (101-111) mmol/L Carbon Dioxide 26 (22-32) mmol/L Anion Gap 9 (2-11) mmol/L BUN 6 (6-24) mg/dL Creatinine 0.50 L (0.51-0.95) mg/dL Est GFR ( Amer) 154.3 (>60) Est GFR (Non-Af Amer) 120.0 (>60) BUN/Creatinine Ratio 12.0 (8-20) Glucose 120 H (70-100) mg/dL Lactic Acid (0.5-2.0) mmol/L Calcium 9.7 (8.6-10.3) mg/dL Magnesium 1.5 L (1.9-2.7) mg/dL Total Bilirubin 0.40 (0.2-1.0) mg/dL AST 39 (13-39) U/L ALT 17 (7-52) U/L Alkaline Phosphatase 81 (34-104) U/L Ammonia (16-53) mol/L Total Creatine Kinase 52 (10-223) U/L CK-MB (CK-2) 5.7 (0.6-6.3) ng/mL Troponin I 0.07 H* (<0.04) ng/mL C-Reactive Protein 8.83 H (< 5.00) mg/L B-Natriuretic Peptide ( - 100) pg/mL Total Protein 7.0 (6.4-8.9) g/dL Albumin 3.8 (3.2-5.2) g/dL Globulin 3.2 (2-4) g/dL Albumin/Globulin Ratio 1.2 (1-3) Lipase 24 (11.0-82.0) U/L TSH 3.71 (0.34-5.60) mcIU/mL Salicylates < 2.50 (<30) mg/dL Acetaminophen < 15 mcg/mL Serum Alcohol < 10 (<10) mg/dL 12/21/16 12/21/16 Range/Units 15:55 15:55 WBC (3.5-10.8) 10^3/ul RBC (4.0-5.4) 10^6/ul Hgb (12.0-16.0) g/dl Hct (35-47) % MCV (80-97) fL MCH (27-31) pg MCHC (31-36) g/dl RDW (10.5-15) % Plt Count (150-450) 10^3/ul MPV (7.4-10.4) um3 Neut % (Auto) (38-83) % Lymph % (Auto) (25-47) % [place] % (Auto) (1-9) % Eos % (Auto) (0-6) % Baso % (Auto) (0-2) % Absolute Neuts (auto) (1.5-7.7) 10^3/ul Absolute Lymphs (auto) (1.0-4.8) 10^3/ul Absolute Monos (auto) (0-0.8) 10^3/ul Absolute Eos (auto) (0-0.6) 10^3/ul Absolute Basos (auto) (0-0.2) 10^3/ul Absolute Nucleated RBC 10^3/ul Nucleated RBC % INR (Anticoag Therapy) (0.89-1.11) APTT (26.0-36.3) seconds Sodium (133-145) mmol/L Potassium (3.5-5.0) mmol/L Chloride (101-111) mmol/L Carbon Dioxide (22-32) mmol/L Anion Gap (2-11) mmol/L BUN (6-24) mg/dL Creatinine (0.51-0.95) mg/dL Est GFR ( Amer) (>60) Est GFR (Non-Af Amer) (>60) BUN/Creatinine Ratio (8-20) Glucose (70-100) mg/dL Lactic Acid 0.8 (0.5-2.0) mmol/L Calcium (8.6-10.3) mg/dL Magnesium (1.9-2.7) mg/dL Total Bilirubin (0.2-1.0) mg/dL AST (13-39) U/L ALT (7-52) U/L Alkaline Phosphatase (34-104) U/L Ammonia 43 (16-53) mol/L Total Creatine Kinase (10-223) U/L CK-MB (CK-2) (0.6-6.3) ng/mL Troponin I (<0.04) ng/mL C-Reactive Protein (< 5.00) mg/L B-Natriuretic Peptide 78 ( - 100) pg/mL Total Protein (6.4-8.9) g/dL Albumin (3.2-5.2) g/dL Globulin (2-4) g/dL Albumin/Globulin Ratio (1-3) Lipase (11.0-82.0) U/L TSH (0.34-5.60) mcIU/mL Salicylates (<30) mg/dL Acetaminophen mcg/mL Serum Alcohol (<10) mg/dL Microbiology and Other Data: Microbiology 12/21/16 20:10 Nasal Screen MRSA (PCR)(DEVIN) - Final Nasal Mrsa Negative Assess/Plan/Problems-Billing Assessment: Headache, confusion, recurrent falls in a 76 yo F with a complex medical history including psoriatic arthritis on Azathioprine, 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 Work-up has revealed evidence of PRES on MRI, UTI and elevated carbamazepine level - Patient Problems (1) PRES (posterior reversible encephalopathy syndrome) Current Visit: Yes Status: Acute Code(s): I67.83 - POSTERIOR REVERSIBLE ENCEPHALOPATHY SYNDROME SNOMED Code(s): 028468436 Comment: MRI c/w PRES, patient admitted in the setting of signifiant HTN. Conitnue metoprolol 25 mg bid, BP better on 12/26. Symptoms from PRES can take days-weeks to resolve. (2) UTI (urinary tract infection) Current Visit: Yes Status: Acute (3) Afib Current Visit: No Status: Acute Priority: High Code(s): I48.91 - UNSPECIFIED ATRIAL FIBRILLATION SNOMED Code(s): 99875158 Comment: Paroxysmal, patient currently in sinus. Continue Tikosyn. Eliquis. (4) Troponin I above reference range Current Visit: Yes Status: Acute Code(s): R74.8 - ABNORMAL LEVELS OF OTHER SERUM ENZYMES SNOMED Code(s): 365348254 Comment: No chest pain. Troponins peaked, likely due to demand from significant HTN (5) CVID (common variable immunodeficiency) Current Visit: Yes Status: Acute Code(s): D83.9 - COMMON VARIABLE IMMUNODEFICIENCY, UNSPECIFIED SNOMED Code(s): 66628067 Comment: On outpatient IVIG, followed by Dr. Burdick. (6) Psoriatic arthritis Current Visit: Yes Status: Acute Code(s): L40.50 - ARTHROPATHIC PSORIASIS, UNSPECIFIED SNOMED Code(s): 566682884 Comment: Holding Azathioprine. Continue prednisone [address] daily[address] Fol[address] by Dr[address] Burdick. (7) Hypertension Current Visit: No Status: Acute Code(s): I10 - ESSENTIAL (PRIMARY) HYPERTENSION SNOMED Code(s): 89215742 Comment: Continue increased doses of amlodipine and losartan. (8) Hypothyroid Current Visit: No Status: Chronic Code(s): E03.9 - HYPOTHYROIDISM, UNSPECIFIED SNOMED Code(s): 60437757 Comment: Continue synthroid Status and Disposition: Inpatient for BP monitoring, IV ABx
[2016-12-26] MEDS: MINOCYCLINE 50 MG PO SCH (17:29)
[2016-12-26] MEDS: cefTRIAXone VIAL(*) 1,000 MG in NS 0.9% 50 ML* 50 ML IVPB SCH (18:10)
[2016-12-26] MEDS: Montelukast Sodium TAB* 10 MG PO SCH (21:21)
[2016-12-26] MEDS: Famotidine TAB* 20 MG PO SCH (21:22)
[2016-12-26] MEDS: Acetaminophen TAB* 325 MG PO PRN (23:43)
[2016-12-27] MEDS: HYDROmorphone TAB* 4 MG PO PRN ×4 (03:50→22:43)
[2016-12-27] MEDS: Levothyroxine TAB* 137 MCG TAB PO SCH (05:22)
[2016-12-27] MEDS: Mometasone 220 MCG MDI INH SCH ×2 (07:37→20:50)
[2016-12-27] MEDS: Omeprazole CAP* 20 MG PO SCH (08:16)
[2016-12-27] MEDS: oxyCODONE TAB* 5 MG TAB PO PRN ×3 (08:16→17:40)
[2016-12-27] MEDS: predniSONE TAB* 5 MG PO SCH (08:16)
[2016-12-27] MEDS: Hydromorphone ER TAB(NF) 16 MG TAB PO SCH ×2 (08:58→20:21)
[2016-12-27] MEDS: Docusate CAP* 100 MG PO SCH (08:59)
[2016-12-27] MEDS: Losartan TAB* 25 MG PO SCH (09:00)
[2016-12-27] MEDS: Metoprolol Tartrate TAB* 25 MG PO SCH (09:00)
[2016-12-27] MEDS: Apixaban* 5 MG TAB PO SCH ×2 (09:01→20:15)
[2016-12-27] MEDS: amLODIPine TAB* 5 MG PO SCH (09:01)
[2016-12-27] MEDS: Dofetilide CAP* 500 MCG PO SCH ×2 (09:02→20:15)
[2016-12-27] MEDS: hydrALAZINE TAB* 25 MG PO SCH (09:02)
[2016-12-27] MEDS: Venlafaxine EXT RELEASE CAP* 75 MG PO SCH (09:03)
--- NOTE | 2016-12-27 11:09 | PN ---
"Progress Note - Progress Note Note: ta Detail Level: Printer-Friendly View | Show Extended View Confidential Drug Utilization Report Search Terms: dana ivory, 1940 Search Date: 12/27/2016 11:08:19 AM This report was requested by: Pio Baldwin | Reference #: [id number] Others' Prescriptions Patient Name: Dana Ivory Date: 1940 Address: [address] [place] [address] Sex: Female Rx Written Rx Dispensed Drug Quantity Days Supply Prescriber Name 12/06/2016 12/10/2016 hydromorphone hcl er 16 mg tab 30 30 Flowers, Tianna 12/06/2016 12/08/2016 hydromorphone hcl er 12 mg tab 60 30 FlowersTianna 11/22/2016 11/24/2016 lyrica 50 mg capsule 60 30 RinconErnst huerta MD 11/08/2016 11/09/2016 hydromorphone hcl er 12 mg tab 60 30 Domingo Quiñones MD 11/08/2016 11/09/2016 hydromorphone hcl er 16 mg tab 30 30 Domingo Quiñones MD 09/06/2016 09/09/2016 hydromorphone hcl er 12 mg tab 60 30 FlowersTianna 09/06/2016 09/09/2016 hydromorphone hcl er 16 mg tab 30 30 FlowersTianna 07/26/2016 09/02/2016 lyrica 50 mg capsule 60 30 RinconErnst MD 08/10/2016 08/10/2016 hydromorphone hcl er 16 mg tab 30 30 Flowers, Tianna 08/10/2016 08/10/2016 hydromorphone hcl er 12 mg tab 60 30 FlowersTianna 07/26/2016 07/27/2016 lyrica 50 mg capsule 60 30 RinconErnst MD 07/05/2016 07/09/2016 hydromorphone hcl er 16 mg tab 30 30 Flowers, Tianna 07/05/2016 07/09/2016 hydromorphone hcl er 12 mg tab 60 30 FlowersTianna 06/24/2016 06/25/2016 hydromorphone hcl er 12 mg tab 28 14 Tianna Floewrs 06/24/2016 06/25/2016 hydromorphone hcl er 16 mg tab 14 14 Tianna Flowers 06/16/2016 06/18/2016 hydromorphone hcl er 16 mg tab 7 7 Tianna Flowers 06/16/2016 06/18/2016 hydromorphone hcl er 12 mg tab 14 7 Tianna Flowers 01/06/2016 06/18/2016 lyrica 50 mg capsule 60 30 Ernst Terry MD 06/08/2016 06/10/2016 hydromorphone hcl er 16 mg tab 7 7 Sherita Finch () 06/08/2016 06/10/2016 hydromorphone hcl er 12 mg tab 14 7 Sherita Finch () 06/03/2016 06/03/2016 hydromorphone hcl er 16 mg tab 7 7 Tianna Flowers 06/03/2016 06/03/2016 hydromorphone hcl er 12 mg tab 7 4 Tianna Flowers 05/17/2016 05/19/2016 hydromorphone hcl er 16 mg tab 60 30 Tianna Flowers 05/17/2016 05/18/2016 hydromorphone hcl er 12 mg tab 30 30 Tianna Flowers 04/20/2016 04/21/2016 hydromorphone hcl er 16 mg tab 60 30 Tianna Flowers 04/20/2016 04/21/2016 hydromorphone hcl er 12 mg tab 30 30 Tianna Flowers 03/16/2016 03/20/2016 hydromorphone hcl er 16 mg tab 60 30 Tianna Flowers 03/16/2016 03/20/2016 hydromorphone hcl er 12 mg tab 30 30 Tianna Flowers 01/06/2016 03/12/2016 lyrica 50 mg capsule 60 30 Ernst Terry MD 02/17/2016 02/20/2016 hydromorphone hcl er 16 mg tab 90 30 Tianna Flowers 01/06/2016 02/07/2016 lyrica 50 mg capsule 60 30 Ernst Terry MD 01/20/2016 01/24/2016 hydromorphone hcl er 16 mg tab 90 30 Tianna Flowers 01/06/2016 01/09/2016 lyrica 50 mg capsule 60 30 Ernst Terry MD"
[2016-12-27] MEDS: Acetaminophen TAB* 325 MG PO PRN ×2 (11:48→17:41)
--- NOTE | 2016-12-27 12:14 | PN ---
Progress Note - Progress Note Note: Time spent on discharge 55 minutes.
--- NOTE | 2016-12-27 13:44 | PN ---
Progress Note - Progress Note Note: Patient somewhat orthostatic. I have d/c'd the hydralazine. Postphone D/C to .
[2016-12-27] MEDS ORDERED: Metoprolol Tartrate TAB* 25 MG PO SCH (15:13)
[2016-12-27] MEDS: cefTRIAXone VIAL(*) 1,000 MG in NS 0.9% 50 ML* 50 ML IVPB SCH (17:41)
[2016-12-27] MEDS: MINOCYCLINE 50 MG PO SCH (17:41)
[2016-12-27] MEDS: Montelukast Sodium TAB* 10 MG PO SCH (20:15)
[2016-12-27] MEDS: Famotidine TAB* 20 MG PO SCH (20:15)
--- NOTE | 2016-12-27 23:41 | DS ---
DISCHARGE SUMMARY: DATE OF ADMISSION: 12/21/16 DATE OF DISCHARGE: 12/27/16 HOSPITAL COURSE: This 76-year-old woman came with a complaint of altered mental status, weakness and headache. History is detailed in the admission note. There is a question of either polypharmacy or urinary tract infection at the time of admission. Her blood pressure was quite high as well. Hydralazine was added on a p.r.n. basis. The patient had an MRI of the brain which is compatible with PRES, posterior reversible encephalopathy syndrome. She has about 30-year history of opioid use and told me that at one point she had a morphine pump. She has been going to the pain clinic on a regular basis for many years. Her home medications had recently been adjusted as well. During this hospital stay, her antihypertensive medications were increased significantly. We tried tapering her hydromorphone extended release medication. I do not think she tolerated that. Her explained that she had been on a larger dose for many years and this would be the best thing for her. I reinstituted the 16 mg twice a day, she seemed to do quite well on that. Although the cause and effect relation is not clear, as her blood pressure came down, she did improve with less headache. Her mental status is certainly quite fine the last few days in the hospital. She did not receive azathioprine during her hospital stay. It is not clear if azathioprine was a contributing factor to her symptoms. She will consult Dr. Burdick regarding if and when to resume azathiprine. FINAL DIAGNOSES: 1. Posterior reversible encephalopathy syndrome. 2. Urinary tract infection. 3. Atrial fibrillation. 4. Borderline troponin. 5. Common variable immunodeficiency. 6. Psoriatic arthritis. 7. Hypertension. 8. Hypothyroidism. DISCHARGE MEDICATIONS: 1. Hydromorphone extended release 16 mg b.i.d. 2. Losartan 100 mg daily. 3. Amlodipine 10 mg daily. 4. Prednisone 5 mg daily. 5. Carbamazepine 100 mg daily. 6. Oxycodone 10 mg every 6 hours, maximum daily dose 4, dispensed 20. 7. Albuterol 2.5 mg through a nebulizer every 6 hours p.r.n. 8. Polysaccharide iron with folic acid 1 capsule daily. 9. Fluticasone 220 mcg inhaler 2 puffs b.i.d. 10. Vitamin B12, 1000 mcg daily. 11. Levothyroxine 137 mcg daily. 12. Probiotic products 1 capsule twice daily. 13. Vitamin D3, 2000 units daily. 14. Multivitamin with minimum of 1 daily. 15. Pantoprazole 40 mg daily. 16. Ranitidine 300 mg h.s. 17. Teriparatide or Forteo 20 mg subcu daily. 18. Montelukast 10 mg daily. 19. Ibuprofen 400 mg every 4 hours p.r.n. 20. Apixaban 5 mg daily. 21. Minocycline 100 mg h.s. 22. Venlafaxine extended release 75 mg daily. 23. Docusate 25 mg daily. CC: Ernst Terry MD * [id number]/[facility] #: [id number] MTDD
[2016-12-28] MEDS: oxyCODONE TAB* 5 MG TAB PO PRN (01:52)
[2016-12-28] MEDS: Levothyroxine TAB* 137 MCG TAB PO SCH (04:32)
[2016-12-28] MEDS: HYDROmorphone TAB* 4 MG PO PRN ×2 (04:32→07:50)
[2016-12-28 07:19] VITALS: BP 144/58
[2016-12-28] MEDS: Hydromorphone ER TAB(NF) 16 MG TAB PO SCH (07:47)
[2016-12-28] MEDS: Losartan TAB* 25 MG PO SCH (07:49)
[2016-12-28] MEDS: Docusate CAP* 100 MG PO SCH (07:49)
[2016-12-28] MEDS: Apixaban* 5 MG TAB PO SCH (07:50)
[2016-12-28] MEDS: predniSONE TAB* 5 MG PO SCH (07:51)
[2016-12-28] MEDS: amLODIPine TAB* 5 MG PO SCH (07:52)
[2016-12-28] MEDS: Dofetilide CAP* 500 MCG PO SCH (07:52)
[2016-12-28] MEDS: Omeprazole CAP* 20 MG PO SCH (07:53)
[2016-12-28] MEDS: Venlafaxine EXT RELEASE CAP* 75 MG PO SCH (07:53)
[2016-12-28] MEDS: Mometasone 220 MCG MDI INH SCH (08:18)
--- NOTE | 2016-12-28 10:15 | PN ---
Progress Note - Progress Note Note: Time spent on discharge 45 minutes. I spoke with [facility] to make sure she got the correct rx's.
--- NOTE | 2016-12-28 21:35 | DS ---
CC: Ernst Terry MD * DISCHARGE SUMMARY ADDENDUM: DATE OF ADMISSION: DATE OF DISCHARGE: HISTORY: The patient was a little bit orthostatic and bradycardic on 12/27/16. Her metoprolol was discontinued. Her heart rate was as low as 49. I note through her whole hospital stay, her highest heart rate was 80. On the day of discharge, her heart rate was 55. She felt much better. Her blood pressure was 144/58 on the day of discharge. On 12/27/16, it was as low as 96/40. The patient's hydralazine was discontinued as well on 12/27/16. I spoke to [facility] to make sure she got the right prescriptions. On my discharge summary from 12/27/16, it lists hydralazine and metoprolol. Both of these medications have been discontinued. The losartan dose of 100 mg daily and the amlodipine dose of 10 mg daily are both correct and represent an increase from her previous home medications and will be the prescription she picks up at [facility]. She will still get the 10 tablets of oxycodone 10 mg tablets 1 every 6 hours p.r.n., maximum daily dose of 4, dispensed 20. [id number]/[facility] #: [id number] MTDD
== END 2016-12-28 11:18 | disposition home or self-care (01) | DRG 71 ==
LOC: ED 12:43 → MEDTELE 18:05
PROVIDERS: ADMIT Hospitalist; ATTEND Internal Medicine
DX: I67.83 Posterior reversible encephalopathy syndrome (principal); N39.0 Urinary tract infection, site not specified; D83.9 Common variable immunodeficiency, unspecified; J82 Pulmonary eosinophilia, not elsewhere classified; I27.2 Other secondary pulmonary hypertension; E83.42 Hypomagnesemia; I10 Essential (primary) hypertension; B96.89 Other specified bacterial agents as the cause of diseases classified elsewhere; I48.91 Unspecified atrial fibrillation; L40.50 Arthropathic psoriasis, unspecified; E03.9 Hypothyroidism, unspecified; I35.0 Nonrheumatic aortic (valve) stenosis; Z96.653 Presence of artificial knee joint, bilateral; R74.8 Abnormal levels of other serum enzymes; J40 Bronchitis, not specified as acute or chronic; I95.1 Orthostatic hypotension; G89.29 Other chronic pain; W18.30XA Fall on same level, unspecified, initial encounter; Y92.9 Unspecified place or not applicable; Z85.3 Personal history of malignant neoplasm of breast; Z91.048 Other nonmedicinal substance allergy status; Z79.1 Long term (current) use of non-steroidal anti-inflammatories (NSAID); Z79.899 Other long term (current) drug therapy; Z79.52 Long term (current) use of systemic steroids; Z82.49 Family history of ischemic heart disease and other diseases of the circulatory system; Z88.8 Allergy status to other drugs, medicaments and biological substances; Z87.891 Personal history of nicotine dependence
CPT/HCPCS: 36415; 70450; 70551; 71010; 80048; 80053; 80156; 80320; 80329; 81003; 81015; 82140; 82550; 82553; 83605; 83690; 83735; 83880; 84443; 84484; 85025; 85610; 85730; 86140; 87077; 87086; 87186; 87641; 93005; 94760; A9270-GY; G0480; J0360; J0696; J7500; J7512

== ENCOUNTER 2017-01-24 20:24 | Inpatient (IN) | payer MEDICARE, BC ==
--- NOTE | 2017-01-24 21:05 | ED ---
Head Injury - HPI Summary HPI Summary: 76F presents with head injury today. She is seen at the pain clinic for chronic pain and they stopped all of her pain medication so she has been self medicating with ETOH. She had unknown LOC. She denies any nausea or vomiting. She is on plavix. She has chronic back pain that she states is unchanged. Her is concerned that is not safe at home. She denies any SI/HI. She states she had three glasses of wine today. she has history of ETOH abuse. She has been falling alot due to the increase in ETOH use. The believes she is withdrawal from her narcotic usage but on further discussion she states she has been taking hydromorphine with last dose this morning which coincides with her ISTOP. - History Of Current Complaint Chief Complaint: EDHeadInjury Stated Complaint: FALL/HEAD LAC Time Seen by Provider: 01/24/17 20:32 Pain Intensity: 9 - Allergies/Home Medications Allergies/Adverse Reactions: Allergies Allergy/AdvReac Type Severity Reaction Status Date / Time Celecoxib [From Celebrex] Allergy Mild Rash Verified 01/24/17 22:39 Methotrexate Allergy Mild See Comment Verified 01/24/17 22:39 Vancomycin AdvReac Mild Rash Verified 01/24/17 22:39 adhesives AdvReac Intermediate Rash Uncoded 01/13/17 13:40 Home Medications: Home Medications Apixaban* [Eliquis*] 5 mg PO BID 01/24/17 [History Confirmed 01/24/17] PMH/Surg Hx/FS Hx/Imm Hx Endocrine/Hematology History: Reports: Hx Anticoagulant Therapy - eliquis, Hx Thyroid Disease - hypothyroidism Denies: Hx Blood Disorders, Hx Blood Transfusions, Hx Bone Marrow Disease, Hx Diabetes, Hx Systemic Lupus Erythematosus, Hx Sickle Cell Disease, Hx Anemia , Hx Unexplained Bleeding, Other Endocrine/Hematological Disorders Cardiovascular History: Reports: Hx Atrial Fibrillation - on blood thinner, Hx Hypercholesterolemia, Hx Hypertension, Hx Valvular Heart Disease - Aortic Valve disease, Other Cardiovascular Problems/Disorders - ON BLOOD THINNER MEDICATION PER Denies: Hx Aneurysm, Hx Angina, Hx Angioplasty, Hx Auto Implanted Cardiovert Defib, Hx Cardiac Arrest, Hx Cardiomegaly, Hx Congenital Heart Disease, Hx Congestive Heart Failure, Hx Coronary Artery Disease, Hx Deep Vein Thrombosis, Hx Embolism, Hx Hypotension, Hx Pacemaker/ICD, Hx Peripheral Vascular Disease, Hx Rheumatic Fever, Hx Syncope Respiratory History: Reports: Hx Chronic Obstructive Pulmonary Disease (COPD) - with chronic bronchitis, Hx Sleep Apnea, Other Respiratory Problems/Disorders - Pulmonary HTN Denies: Hx Asthma, Hx Chronic Bronchitis, Hx Cystic Fibrosis, Hx Lung Cancer , Hx Pleural Effusion, Hx Pneumonia, Hx Pulmonary Edema, Hx Pulmonary Embolism, Hx Seasonal Allergies GI History: Reports: Hx Gastroesophageal Reflux Disease, Hx Ulcer - gerd, Other GI Disorders - CONSTIPATION- DIET CONTROLLED Denies: Hx Cirrhosis, Hx Crohn's Disease, Hx Diverticulosis, Hx Gall Bladder Disease, Hx Gastrointestinal Bleed, Hx Hiatal Hernia, Hx Irritable Bowel, Hx Jaundice, Hx Obstructive Bowel, Hx Ileostomy, Hx Pyloric Stenosis History: Denies: Hx Renal Disease Musculoskeletal History: Reports: Hx Arthritis, Hx Back Problems, Hx Orthopedic Injury - Right arm reconstruction r/t traumatic injury, Other Musculoskeletal History - Left Fibula Fracture 08/03/16, psoriatic arthritis Denies: Hx Bursitis, Hx Congenital Bone Abnormalities, Hx Fibromyalgia, Hx Gout, Hx Osteoporosis, Hx Scoliosis, Hx Tendonitis Sensory History: Reports: Hx Cataracts, Hx Contacts or Glasses Denies: Hx Eye Injury, Hx Eye Prosthesis, Hx Glaucoma, Hx Legally Blind, Hx Macular Degeneration, Hx Vision Problem, Hx Deafness, Hx Hearing Aid, Hx Hearing Problem, Other Sensory Impairments Opthamlomology History: Reports: Hx Cataracts, Hx Contacts or Glasses Denies: Hx Eye Injury, Hx Eye Prosthesis, Hx Glaucoma, Hx Legally Blind, Hx Macular Degeneration, Hx Vision Problem, Other Sensory Impairments Neurological History: Denies: Hx CVA Psychiatric History: Reports: Hx Depression, Hx Suicide Attempt, Hx Substance Abuse - EtOH Denies: Hx Anxiety, Hx Attention Deficit Hyperactivity Disorder, Hx Eating Disorder, Hx Panic Disorder, Hx Post Traumatic Stress Disorder, Hx Inpatient Treatment, Hx Community Mental Health Tx, Hx Schizophrenia, Hx Bipolar Disorder , Hx of Violent Episodes Against Others, Other Psychiatric Issues/Disorders - Cancer History Cancer Type, Location and Year: Rt BREAST - MASTECTOMY - 2013 Hx Chemotherapy: No Hx Radiation Therapy: Yes Hx Palliative Cancer Treatment: No - Surgical History Surgery Procedure, Year, and Place: CATARACTS. LT FOOT - REPAIR - RECON W/ METAL. LUMBAR - DISCETOMY, HERNIATION. NON- MALIGNANT TUMOR REMOVED. REN KNEE REPLACEMENTS ( 1999 & 2009). Rt ELBOW - ARTIFICIAL JOINT AND METAL PLATE ABOVE JOINT. TONSILECTOMY. APPENDECTOMY. OVARIAN CYST REMOVED - REN. Rt MASTECTOMY Hx Anesthesia Reactions: No - Immunization History Date of Tetanus Vaccine: unknown Date of Influenza Vaccine: unknown Infectious Disease History: No Infectious Disease History: Reports: Hx of Known/Suspected MRSA - right elbow, 2013 Denies: Hx Clostridium Difficile, Hx Hepatitis, Hx Human Immunodeficiency Virus (HIV), Hx Shingles, Hx Tuberculosis, Hx Known/Suspected VRE, Hx Known/ Suspected VRSA, History Other Infectious Disease, Traveled Outside the [place] in Last 30 Days - Family History Known Family History: Positive: Unknown - not obtained due to confusion AMS, Other - Breast CA - Social History Alcohol Use: Daily Substance Use Type: Reports: None Substance Use Comment - Amount & Last Used: DILAUDID Hx Tobacco Use: Yes Smoking Status (MU): Current Every Day Smoker Type: Cigarettes Amount Used/How Often: 5 a day Length of Time of Smoking/Using Tobacco: 15 yrs Have You Smoked in the Last Year: No Review of Systems Negative: Fever Negative: Chest Pain Negative: Shortness Of Breath Positive: Myalgia - back pain Positive: Headache All Other Systems Reviewed And Are Negative: Yes Physical Exam Triage Information Reviewed: Yes Vital Signs On Initial Exam: Initial Vitals Temp Pulse Resp BP Pulse Ox 97.9 F 72 20 127/59 98 01/24/17 20:32 01/24/17 20:32 01/24/17 20:32 01/24/17 20:32 01/24/17 20:32 Vital Signs Reviewed: Yes Appearance: Positive: Well-Appearing Skin: Positive: Warm, Dry, Other - abrasion noted to scalp with no sutureable area seen Head/Face: Positive: Normal Head/Face Inspection, Other - no step off, raccoon eyes, carmona sign Eyes: Positive: Normal, Conjunctiva Clear ENT: Positive: Normal ENT inspection, Pharynx normal, TMs normal Respiratory/Lung Sounds: Positive: Clear to Auscultation, Breath Sounds Present Cardiovascular: Positive: Normal, RRR Abdomen Description: Positive: Nontender, Soft Bowel Sounds: Positive: Present Musculoskeletal: Positive: Other - tender lower back midline, no midline tenderness neck, full ROM neck, able to bend and extend back Neurological: Positive: Sensory/Motor Intact, Alert, Oriented to Person Place, Time, CN Intact II-III - Homar Coma Scale Best Eye Response: 4 - Spontaneous Best Motor Response: 6 - Obeys Commands Best Verbal Response: 5 - Oriented Coma Scale Total: 15 Diagnostics - Vital Signs Vital Signs Temp Pulse Resp BP Pulse Ox 01/24/17 20:32 97.9 F 72 20 127/59 98 - Laboratory Result Diagrams: 01/24/17 21:37 01/24/17 21:37 Lab Statement: Any lab studies that have been ordered have been reviewed, and results considered in the medical decision making process. - CT brain CT Interpretation: No Acute Changes - IMPRESSION: LIMITED STUDY. NO ACUTE INTRACRANIAL PATHOLOGY. CT Interpretation Completed By: Radiologist neck CT Interpretation: No Acute Changes - IMPRESSION: DEGENERATIVE DISC DISEASE AND OSTEOARTHRITIS. NO ACUTE OSSEOUS INJURY TO THE CERVICAL SPINE CT Interpretation Completed By: Radiologist thoracic CT Interpretation: Positive (See Comments) - IMPRESSION: LIMITED STUDY. WITHIN THE LIMITATIONS OF STUDY, AGAIN NOTED IS A MILD COMPRESSION DEFORMITY OF T12 WITHOUT OSSEOUS RETROPULSION. DEGENERATIVE DISC DISEASE AND OSTEOARTHRITIS. STATUS POST MULTILEVEL LAMINECTOMY CT Interpretation Completed By: Radiologist lumbar CT Interpretation: Positive (See Comments) - IMPRESSION: LIMITED STUDY. WITHIN THE LIMITATIONS OF STUDY, AGAIN NOTED IS A MILD COMPRESSION DEFORMITY OF T12 WITHOUT OSSEOUS RETROPULSION. DEGENERATIVE DISC DISEASE AND OSTEOARTHRITIS. STATUS POST MULTILEVEL LAMINECTOMY CT Interpretation Completed By: Radiologist Head Injury Course/Dx Course Of Treatment: 76F presents with head injury today s/p falling down to ETOH and hitting head. has chronic back pain that has not changed. unknown LOC. no n/v. is on plavix. has abrasion to scalp that are not bleeding at this time. normal neuro exam. CT brain normal. lumbar shows T12 compression fx, wants patient to be admitted for social reasons due to being a danger to self at home. dr alegria agrees to admit for care home reasons. patient understands and agrees with plan - Diagnoses Differential Diagnosis/HQI/PQRI: Concussion With LOC, Concussion Without LOC, Contusion, Intracranial Bleed, Laceration Provider Diagnoses: Head injury, EtOH dependence Discharge - Discharge Plan Condition: Stable Disposition: ADMITTED TO [facility]
--- NOTE | 2017-01-24 21:16 | RAD ---
HISTORY: Head injury, intoxication COMPARISONS: CT of the chest dated September 24, 2015 TECHNIQUE: Multiple contiguous axial CT scans were obtained of the thoracic spine without intravenous contrast, with coronal and sagittal multiplanar reformations. FINDINGS: The study is limited by patient motion artifact. SPINAL CANAL: Evaluation of the central canal is limited on CT technique; however, there is no obvious canalicular mass or epidural hemorrhage. ALIGNMENT: The subluxation noted of the upper thoracic spine is felt to be an artifact of motion. The alignment is normal. VERTEBRAL BODIES: There is mild compression deformity of T12. There is no osseous retropulsion. There is multilevel anterolateral marginal osteophyte formation. JOINTS: There is no appreciable sensation or dislocation. MUSCULATURE: Unremarkable INTERVERTEBRAL DISCS: There is diffuse loss of intervertebral disc height throughout the spine. AXIAL IMAGES: There is no osseous central canal stenosis or neuroforaminal narrowing. SOFT TISSUES: The visualized soft tissues of the chest and abdomen are unremarkable. OTHER: None IMPRESSION: LIMITED STUDY. WITHIN THE LIMITATIONS OF THE STUDY, THERE IS MILD WEDGING OF T12 CONCERNING FOR A COMPRESSION FRACTURE. THERE IS NO OSSEOUS RETROPULSION.
--- NOTE | 2017-01-24 21:18 | RAD ---
HISTORY: Head injury, intoxication COMPARISONS: December 10, 2010 TECHNIQUE: Multiple contiguous axial CT scans were obtained of the cervical spine without intravenous contrast, with coronal and sagittal multiplanar reformations. FINDINGS: BRAIN: The visualized brain is unremarkable CENTRAL CANAL: Evaluation of the central canal is limited on CT technique; however, there is no obvious canalicular mass or epidural hemorrhage. ALIGNMENT: There is straightening of the cervical lordosis. VERTEBRAL BODIES: There is multilevel anterolateral marginal osteophyte formation. There is no displaced fracture. JOINTS: There is osteoarthritis of the uncovertebral and facet joints. There is osteoarthritis of the atlantoaxial articulation MUSCULATURE: Unremarkable INTERVERTEBRAL DISCS: There is diffuse loss of intervertebral disc height. AXIAL IMAGES: There is mild neural foraminal narrowing, with more moderate to severe neural foraminal narrowing on the left at C5-C6. There is no osseous central canal stenosis SOFT TISSUES: The visualized soft tissues of the neck are unremarkable. The prevertebral fat stripe is preserved. There is calcification of the carotid bifurcations. OTHER: None. IMPRESSION: DEGENERATIVE DISC DISEASE AND OSTEOARTHRITIS. NO ACUTE OSSEOUS INJURY TO THE CERVICAL SPINE
--- NOTE | 2017-01-24 21:21 | RAD ---
HISTORY: Trauma, intoxication COMPARISONS: CT of the pelvis dated November 18, 2015 TECHNIQUE: Multiple contiguous axial CT scans were obtained of the lumbar spine without intravenous contrast, with coronal and sagittal multiplanar reformations. FINDINGS: The study is limited by patient motion artifact. SPINAL CANAL: Evaluation of the central canal is limited on CT technique; however, there is no obvious canalicular mass or epidural hemorrhage. ALIGNMENT: There is a scoliotic curvature of the spine VERTEBRAL BODIES: The patient is status post multilevel laminectomy along the lower lumbar spine. Again noted is mild wedging of the T12 vertebral body consistent with compression fracture, without osseous retropulsion. There is multilevel anterolateral marginal osteophyte formation. JOINTS: There is diffuse facet osteoarthritic change MUSCULATURE: Unremarkable INTERVERTEBRAL DISCS: There is diffuse loss of intervertebral disc height throughout the spine. AXIAL IMAGES: There is moderate right neural foraminal narrowing at L2-L3 and L3-L4. There is no osseous central canal stenosis. SOFT TISSUES: There is atherosclerosis of the abdominal aorta OTHER: None IMPRESSION: LIMITED STUDY. WITHIN THE LIMITATIONS OF STUDY, AGAIN NOTED IS A MILD COMPRESSION DEFORMITY OF T12 WITHOUT OSSEOUS RETROPULSION. DEGENERATIVE DISC DISEASE AND OSTEOARTHRITIS. STATUS POST MULTILEVEL LAMINECTOMY
--- NOTE | 2017-01-24 21:27 | RAD ---
HISTORY: Head injury, intoxication COMPARISONS: December 21, 2016 TECHNIQUE: Multiple contiguous axial CT scans were obtained of the head without intravenous contrast. FINDINGS: The study is limited by patient motion artifact. HEMORRHAGE/INFARCT: There is no hemorrhage or acute infarct. MASSES/SHIFT: There is no mass or shift. EXTRA-AXIAL SPACES: There are no extra-axial fluid collections. SULCI AND VENTRICLES: The sulci and ventricles are normal in size and position for the patient's stated age. CEREBRUM: There is hypoattenuation of the periventricular and subcortical white matter. BRAINSTEM: There are no focal parenchymal abnormalities. CEREBELLUM: There are no focal parenchymal abnormalities. VESSELS: The vessels are grossly normal. PARANASAL SINUSES: There is complete atelectasis of the right maxillary sinus consistent with chronic sinusitis ORBITS: The orbits are unremarkable. BONES AND SOFT TISSUE: No bone or soft tissue abnormalities are noted. OTHER: None IMPRESSION: LIMITED STUDY. NO ACUTE INTRACRANIAL PATHOLOGY.
[2017-01-24 21:45] LABS: Hematocrit 42 % (35-47); Hemoglobin 14.1 g/dl (12.0-16.0); Mean Corpuscular HGB Conc 34 g/dl (31-36); Mean Corpuscular Hemoglobin 31 pg (27-31); Mean Corpuscular Volume 92 fL (80-97); Mean Platelet Volume 8 um3 (7.4-10.4); Red Blood Count 4.58 10^6/ul (4.0-5.4); Red Cell Distribution Width 15 % (10.5-15); White Blood Count 5.2 10^3/ul (3.5-10.8)
[2017-01-24 21:59] LABS: Albumin 3.6 g/dL (3.2-5.2); Calcium 8.9 mg/dL (8.6-10.3); EGFR African American 178.8 (>60); Globulin 2.9 g/dL (2-4); Potassium 3.6 mmol/L (3.5-5.0); Total Bilirubin 0.5 mg/dL (0.2-1.0); Total Protein 6.5 g/dL (6.4-8.9)
[2017-01-24] MEDS ORDERED: Acetaminophen TAB* 325 MG PO PRN (22:29)
[2017-01-24] MEDS ORDERED: Albuterol 2.5 MG/3 ML NEB.SOL* (0.083%) INH PRN (22:29)
[2017-01-24] MEDS ORDERED: Melatonin (NF) 3 MG TAB PO PRN (22:37)
[2017-01-24] MEDS ORDERED: Thiamine IV* 100 MG/ML 2 ML VIAL IM ONE (22:49)
[2017-01-24] MEDS ORDERED: HYDROmorphone* 1 MG/ML 1 ML SYR IV SLOW PU ONE (23:37)
[2017-01-25] MEDS ORDERED: Spiriva Inhaler DEVICE* 1 EACH DEVICE ONE (01:00)
--- NOTE | 2017-01-25 01:32 | HP ---
H&P (Free Text) History and Physical: PCP: KASSI Terry MD Date/Time of Evaluation: 01/24/2017 7368 CC: no safe discharge HPI: Mrs Gusman is a 76YO female HX chronic LBP w/ L sciatica, psoriatic arthritis, & HX opioid abuse including a suicide attempt by overdose last year and recently consuming a month supply of narcotic in 7-10 days resulting in her dismissal from [facility] pain management. Additionally she was admitted to [facility] 12/21- 12/28/2016 for PRES and UTI with a question of polypharmacy complicating the picture. Her recently learned that she has also been supplementing her pain medications with excessive alcohol and he considers her an alcoholic. It is unclear how much she actually takes and her report is clearly underestimated as she claims to have only had 3 drinks today, but her DAVIS is 220s without slurred speech or lethargy. She experienced a mechanical fall today with impact to the back of the head prompting this evaluation. Work up was negative for significant acute illness or injury, but her declined to take her home as he does not feel he can safely care for her under the circumstances. As such , they were offered skilled nursing admission in order to arrange a safe discharge. PMedHx HX breast CA CVID AFIB aortic stenosis pHTN psoriatic arthritis chronic LBP w/ L sciatica Ambulatory Orders Nursning to reconcile. Albuterol 2.5MG/3ML (0.083%)* [Ventolin 2.5 MG/3 ML NEB.RADHA*] 2.5 mg NEB Q6HR PRN 12/14/15 Polysaccharide Iron-Folic Acid [Ferrex 150 Forte 150-1-25 mg-mg-Mcg] 1 cap PO DAILY 03/22/16 Fluticasone HFA 220 mcg(NF) [Flovent Hfa 220 Mcg(NF)] 2 puff INH BID 06/16/16 Cholecalciferol [Vitamin D3 Super Strength] 2,000 unit PO DAILY 12/21/16 Cyanocobalamin TAB* [Vitamin B12 TAB*] 2,000 mcg PO DAILY 12/21/16 Docusate Sodium [Gnp Stool Softener] 250 mg PO DAILY 12/21/16 Dofetilide CAP* [Tikosyn CAP*] 500 mcg PO BID 12/21/16 Ibuprofen TAB* [Advil TAB*] 400 mg PO .Q4-6H PRN 12/21/16 Levothyroxine TAB* [Synthroid 137 MCG TAB*] 137 mcg PO DAILY 12/21/16 Minocycline (NF) 100 mg PO QPM 12/21/16 Montelukast Sodium TAB* [Singulair 10 MG TAB*] 10 mg PO DAILY 12/21/16 Multivitamins/Minerals TAB* [Theragran/minerals TAB*] 1 tab PO DAILY 12/21/16 Probiotic Product [Probiotic Daily] 1 cap PO BID 12/21/16 Ranitidine TAB (NF) [Zantac TAB (NF)] 300 mg PO BEDTIME 12/21/16 Teriparatide (Recombinant) [Forteo] 20 mcg SUBCUT DAILY 12/21/16 Venlafaxine EXT RELEASE CAP* [Effexor Xr CAP*] 37.5 mg PO BID 12/21/16 predniSONE TAB* [Deltasone TAB*] 4 mg PO DAILY 12/21/16 Hyqvia 1 dose SUBCUT MONTHLY 01/13/17 amLODIPine TAB* [Norvasc 5 mg TAB*] 10 mg PO DAILY 01/13/17 Apixaban* [Eliquis*] 5 mg PO BID 01/24/17 Allergies Celecoxib [From Celebrex] Allergy (Mild, Verified 01/24/17 22:39) Rash Methotrexate Allergy (Mild, Verified 01/24/17 22:39) See Comment "B.O.O.P." - CONDITION REGARDING THE LUNGS Vancomycin Adverse Reaction (Mild, Verified 01/24/17 22:39) Rash Red man syndrome if infused too FAST adhesives Adverse Reaction (Intermediate, Uncoded 01/13/17 13:40) Rash pt states she has scars from tape used - tagaderm and paper tape OK. PSurgHx mastectomy back surgery x9 morphine pump implantation R elbow surgery B TKA SocHx: former smoker, active alcohol uncertain amount, no recreational drugs; lives with her ; full code status FamHx: positive for HTN, CAD, HLD, psoriasis ROS: as above, otherwise reviewed and all were negative Constitutional: NAD, normally developed, overweight white female vitals: Vital Signs Temp 36.6 C 01/24/17 20:32 Pulse 63 01/25/17 00:30 Resp 18 01/24/17 23:45 BP 147/75 01/25/17 00:30 Pulse Ox 96 01/25/17 00:30 Intake & Output 01/24/17 01/24/17 01/25/17 11:59 23:59 11:59 Weight 74.843 kg HEENM: atraumatic; sclera/conjunctiva: non-icteric/clear; hearing: clinically intact; oropharynx: clear, mucosa moist Neck: soft tissue: non-tender; thyroid: normal Pulmonary: clear to auscultation bilaterally, good aeration, no accessory muscle use CV: RR/RR, normal S1S2, no carotid bruit, no jugular venous distention, 2+ B DP/ PT, no edema Abdominal: soft, non-distended, non-tender, no rebound/guarding/rigidity, normoactive bowel sounds, no hepatosplenomegaly or masses, no costovertebral angle tenderness Musculoskeletal: general: L foot collapsed arch with central medial plantar callosity; gait: unstable Integumental: as above, otherwise normal appearance and texture of exposed skin Psychiatric orientation: AA&O to PPS, speech clear affect: calm mood: cooperative eye contact: fair content: mostly reliable responses: timely insight: fair to poor Testing: Lab Results 01/24/17 01/24/17 01/24/17 Range/Units 21:37 21:37 21:37 WBC 5.2 (3.5-10.8) 10^3/ul RBC 4.58 (4.0-5.4) 10^6/ul Hgb 14.1 (12.0-16.0) g/dl Hct 42 (35-47) % MCV 92 (80-97) fL MCH 31 (27-31) pg MCHC 34 (31-36) g/dl RDW 15 (10.5-15) % Plt Count 148 L (150-450) 10^3/ul MPV 8 (7.4-10.4) um3 Neut % (Auto) 60.9 (38-83) % Lymph % (Auto) 29.0 (25-47) % [place] % (Auto) 6.7 (1-9) % Eos % (Auto) 2.0 (0-6) % Baso % (Auto) 1.4 (0-2) % Absolute Neuts (auto) 3.2 (1.5-7.7) 10^3/ul Absolute Lymphs (auto) 1.5 (1.0-4.8) 10^3/ul Absolute Monos (auto) 0.3 (0-0.8) 10^3/ul Absolute Eos (auto) 0.1 (0-0.6) 10^3/ul Absolute Basos (auto) 0.1 (0-0.2) 10^3/ul Absolute Nucleated RBC 0 10^3/ul Nucleated RBC % 0 INR (Anticoag Therapy) 1.01 (0.89-1.11) APTT 25.9 L (26.0-36.3) seconds Sodium 124 L (133-145) mmol/L Potassium 3.6 (3.5-5.0) mmol/L Chloride 90 L (101-111) mmol/L Carbon Dioxide 25 (22-32) mmol/L Anion Gap 9 (2-11) mmol/L BUN 11 (6-24) mg/dL Creatinine 0.44 L (0.51-0.95) mg/dL Est GFR ( Amer) 178.8 (>60) Est GFR (Non-Af Amer) 139.0 (>60) BUN/Creatinine Ratio 25.0 H (8-20) Glucose 99 (70-100) mg/dL Calcium 8.9 (8.6-10.3) mg/dL Total Bilirubin 0.50 (0.2-1.0) mg/dL AST 41 H (13-39) U/L ALT 18 (7-52) U/L Alkaline Phosphatase 106 H (34-104) U/L Total Protein 6.5 (6.4-8.9) g/dL Albumin 3.6 (3.2-5.2) g/dL Globulin 2.9 (2-4) g/dL Albumin/Globulin Ratio 1.2 (1-3) Serum Alcohol 221 H (<10) mg/dL CT brain WO, personally reviewed: IMPRESSION: LIMITED STUDY. NO ACUTE INTRACRANIAL PATHOLOGY. CT C-spine WO: IMPRESSION: DEGENERATIVE DISC DISEASE AND OSTEOARTHRITIS. NO ACUTE OSSEOUS INJURY TO THE CERVICAL SPINE CT T-spine WO: IMPRESSION: LIMITED STUDY. WITHIN THE LIMITATIONS OF THE STUDY, THERE IS MILD WEDGING OF T12 CONCERNING FOR A COMPRESSION FRACTURE. THERE IS NO OSSEOUS RETROPULSION. CT L-spine WO: IMPRESSION: LIMITED STUDY. WITHIN THE LIMITATIONS OF STUDY, AGAIN NOTED IS A MILD COMPRESSION DEFORMITY OF T12 WITHOUT OSSEOUS RETROPULSION. DEGENERATIVE DISC DISEASE AND OSTEOARTHRITIS. STATUS POST MULTILEVEL LAMINECTOMY Impression: 76F active alcohol, chronic pain issues recently terminated by pain management for misuse of opioids presents intoxicated with 2nd mechanical fall and who no longer feels safe with her at home. Work up reveals no significant acute abnormalities requiring hospitalization and so skilled nursing admission was explained and accepted. DIAGNOSIS & PLAN Primary no safe discharge : social services analyst consult for short-term placement chronic LBP w/ L sciatica and psoriatic arthritis : pain control : advised that part of the plan will to eventually return her home will likely include: : him maintaining absolute control of her controlled substances : having her L foot evaluated for possible revision to improve ambulatory stability : PT/OT evaluations Secondary HX breast CA : no acute issues CVID : no current infectious burden AFIB : rate controlled : review meds once reconciled aortic stenosis : moderate on ECHO 2013 pHTN : no acute issues Admission Rational: RETIREMENT to arrange safe discharge DVTp: heparin SQ & SCDs Code Status: full HCP:
[2017-01-25] MEDS: HYDROmorphone* 1 MG/ML 1 ML SYR IV PRN ×3 (02:00→10:18)
[2017-01-25] MEDS: traMADol TAB* 50 MG PO PRN ×2 (04:08→12:18)
[2017-01-25] MEDS ORDERED: Heparin VIAL(*) 5000 UNITS/ML VIAL (FIVE THOUSAND) SUBCUT SCH (06:00)
[2017-01-25] MEDS: Levothyroxine TAB* 137 MCG TAB PO SCH (06:10)
[2017-01-25] MEDS: Mometasone/Formoter 200/5 MDI INH SCH ×2 (07:50→21:36)
[2017-01-25] MEDS: Montelukast Sodium TAB* 10 MG PO SCH (08:56)
[2017-01-25] MEDS: Apixaban* 5 MG TAB PO SCH ×2 (08:56→23:33)
[2017-01-25] MEDS: Multivitamins/Minerals TAB PO SCH (08:56)
[2017-01-25] MEDS: Thiamine TAB* 100 MG TAB PO SCH (08:56)
[2017-01-25] MEDS: amLODIPine TAB* 5 MG PO SCH (08:56)
[2017-01-25] MEDS: Docusate CAP* 100 MG PO SCH ×2 (08:57→23:34)
[2017-01-25] MEDS: Folic Acid TAB* 1 MG PO SCH (08:57)
[2017-01-25] MEDS: Dofetilide CAP* 500 MCG PO SCH (08:58)
[2017-01-25] MEDS: Venlafaxine EXT RELEASE CAP* 37.5 MG PO SCH ×2 (08:59→23:35)
[2017-01-25] MEDS: Tiotropium CAP.INH* CAP.INH/18 MCG INH SCH ×2 (09:45→09:48)
--- NOTE | 2017-01-25 17:00 | PN ---
Subjective Date of Service: 01/25/17 Interval History: Patient seen and examined at bedside. Pt states that she has a long history of pain medication use after a horse riding injury in the that resulted in numerous injuries including a fracture in her spine. Pt states that she was recently discharged from the pain clinic due to misuse of her pain medications. Pt states that she has also attempted to kill her self in the recent past with an overdose of her pain medication. Pt reports drinking wine 3-4 times weekly. Discussed with Pt that IV pain medication is not indicated for chronic pain. Pt denies injury from fall yesterday, but states that she has an increase in her chronic pain. Denies fever, chills, shortness of breath, chest discomfort, N/V/D. Family History: Unchanged from Admission Social History: Unchanged from Admission Past Medical History: Unchanged from Admission Objective Active Medications: Acetaminophen (Tylenol Tab*) 650 mg PO Q6H PRN Reason: FEVER/PAIN Albuterol (Ventolin 2.5 Mg/3 Ml Neb.Samreen*) 2.5 mg INH Q2H PRN Reason: SOB/ WHEEZING Amlodipine Besylate (Norvasc Tab*) 10 mg PO DAILY [facility] Apixaban (Eliquis*) 5 mg PO BID [facility] Docusate Sodium (Colace Cap*) 200 mg PO BID [facility] Dofetilide (Tikosyn Cap*) 500 mcg PO BID [facility] Famotidine (Pepcid Tab*) 40 mg PO BEDTIME [facility] Reason: Protocol Folic Acid (Folvite Tab*) 1 mg PO DAILY [facility] Levothyroxine Sodium (Synthroid Tab*) 137 mcg PO DAILY@0600 [facility] Lorazepam (Ativan Inj*) 0 mg IV .PER WAM SCORE [facility] Reason: Protocol Melatonin (Melatonin (Nf)) 3 mg PO BEDTIME PRN; Protocol Reason: Sleep Minocycline HCl (Minocycline (Nf)) 100 mg PO QPM [facility] Mometasone Furoate/Formoterol Fumar (Dulera 200/5 Mdi*) 2 puff INH BID [facility] Montelukast Sodium (Singulair Tab*) 10 mg PO DAILY [facility] Multivitamins/Minerals (Theragran/Minerals Tab*) 1 tab PO DAILY [facility] Thiamine HCl (Vitamin B-1 Tab*) 100 mg PO DAILY [facility] Tiotropium [place] (Spiriva Cap.Inh*) 1 cap INH DAILY [facility] Tramadol HCl (Ultram*) 50 mg PO Q6H PRN Reason: PAIN Venlafaxine HCl (Effexor Xr Cap*) 37.5 mg PO BID [facility] Vital Signs 01/24/17 01/24/17 01/24/17 23:19 23:20 23:30 Temperature Pulse Rate 67 65 65 Respiratory Rate Blood Pressure 155/67 138/67 (mmHg) O2 Sat by Pulse 97 98 97 Oximetry 01/24/17 01/25/17 01/25/17 23:45 00:00 00:01 Temperature Pulse Rate 65 65 66 Respiratory 18 Rate Blood Pressure 147/63 (mmHg) O2 Sat by Pulse 97 96 97 Oximetry 01/25/17 01/25/17 01/25/17 00:30 01:31 02:00 Temperature 97.9 F Pulse Rate 63 70 Respiratory 20 20 Rate Blood Pressure 147/75 157/66 (mmHg) O2 Sat by Pulse 96 100 Oximetry 01/25/17 01/25/17 01/25/17 03:00 04:08 06:03 Temperature 98.0 F 98.2 F Pulse Rate 75 76 Respiratory 20 16 20 Rate Blood Pressure 170/61 153/55 (mmHg) O2 Sat by Pulse 90 90 Oximetry 01/25/17 01/25/17 01/25/17 07:48 08:08 10:07 Temperature 98.1 F 98.0 F Pulse Rate 82 80 Respiratory 16 16 18 Rate Blood Pressure 153/58 170/61 (mmHg) O2 Sat by Pulse 93 100 Oximetry 01/25/17 01/25/17 01/25/17 14:18 14:24 16:16 Temperature 97.6 F 98.2 F Pulse Rate 64 64 Respiratory 16 20 14 Rate Blood Pressure 169/56 154/57 (mmHg) O2 Sat by Pulse 98 98 Oximetry Oxygen Devices in Use Now: None Appearance: NAD, laying in bed Respiratory: Symmetrical Chest Expansion and Respiratory Effort, Clear to Auscultation Cardiovascular: RRR - Grade 2-3 murmur heard across the precordium, - - Grade 2- 3 murmur heard best at the Abdominal: NL Sounds; No Tenderness; No Distention Extremities: No Edema Skin: No Rash or Ulcers Neurological: Alert and Oriented x 3, NL Muscle Strength and Tone Lines/Tubes/Other Access: Clean, Dry and Intact Peripheral IV - site benign Nutrition: Taking PO's Result Diagrams: 01/24/17 21:37 01/24/17 21:37 Assess/Plan/Problems-Billing Assessment: Ms. Gusman is a 76 yo female with PMH significant for alcohol abuse and chronic pain issues who was recently discharged by pain management for misuse of opioids who presented to the emergency room intoxicated after a fall. - Patient Problems (1) Chronic pain Code(s): G89.29 - OTHER CHRONIC PAIN SNOMED Code(s): 84190404 Comment: - Pt will need to have someone to control her controlled substances and she should not be allowed to self administer. - Continue Dilaudid PO prn. - Pain managment consult with Dr. Tavarez pending. (2) Falls Comment: - Suspect related to being intoxicated - Continue OT, PT consult pending (3) Alcohol abuse Code(s): F10.10 - ALCOHOL ABUSE, UNCOMPLICATED SNOMED Code(s): 66953039 Comment: - Unclear how much Pt has been drinking - Continue [facility] protocol (4) Depression Code(s): F32.9 - MAJOR DEPRESSIVE DISORDER, SINGLE EPISODE, UNSPECIFIED SNOMED Code(s): 80266742 Comment: - Pt reports feeling depressed - Continue Effoxor - Psych consult pending (5) Afib Code(s): I48.91 - UNSPECIFIED ATRIAL FIBRILLATION SNOMED Code(s): 25970608 Comment: - Paroxysmal, Heart rate is regular. - Continue Tikosyn and Eliquis. (6) Aortic stenosis Code(s): I35.0 - NONRHEUMATIC AORTIC (VALVE) STENOSIS SNOMED Code(s): 76585548 Comment: - Moderate . - f/u with cardiology outpatient (7) Breast cancer in situ Code(s): D05.90 - UNSPECIFIED TYPE OF CARCINOMA IN SITU OF UNSPECIFIED BREAST SNOMED Code(s): 551367383 Comment: - No active issue (8) COPD with chronic bronchitis Code(s): J44.9 - CHRONIC OBSTRUCTIVE PULMONARY DISEASE, UNSPECIFIED SNOMED Code(s): 309013937 Comment: - No sign of exacerbation at this time - Continue home inhalers/nebs (9) CVID (common variable immunodeficiency) Code(s): D83.9 - COMMON VARIABLE IMMUNODEFICIENCY, UNSPECIFIED SNOMED Code(s) : 30754690 Comment: - Not an active issue at this time. - Followed by Dr. Burdick. (10) Hypertension Code(s): I10 - ESSENTIAL (PRIMARY) HYPERTENSION SNOMED Code(s): 93278337 Comment: - Hypertensive. - Resume home medications, Hydralazine, and telmisartan. - Will hold chlorthalidone as it is contraindicated with Tikosyn (11) Hx of right elbow infect Comment: - hx of MRSA infected prosthesis - No acute problems. followed by Dr. García; continue suppressive minocycline (12) Hypothyroid Code(s): E03.9 - HYPOTHYROIDISM, UNSPECIFIED SNOMED Code(s): 90479352 Comment: Continue synthroid (13) DVT prophylaxis Code(s): FVO6288 - SNOMED Code(s): 141827203 Comment: - Continue Eliquis (14) DNR (do not resuscitate) Status and Disposition: Inpatient. Suspect the patient will need to have placement as her is no longer able to assist with her care at home.
[2017-01-25] MEDS: MINOCYCLINE 50 MG PO SCH (17:23)
[2017-01-25] MEDS: HYDROmorphone TAB* 2 MG PO PRN ×2 (17:44→23:50)
[2017-01-25] MEDS: Famotidine TAB* 20 MG PO SCH (23:33)
[2017-01-25] MEDS: hydrALAZINE TAB* 10 MG PO SCH (23:36)
[2017-01-25 23:50] LABS: Magnesium 1.5 mg/dL (1.9-2.7)
[2017-01-25] MEDS: LORazepam INJ* 2 MG/ML 1 ML VIAL IV SCH (23:51)
[2017-01-26] MEDS: Dofetilide CAP* 500 MCG PO SCH ×2 (01:34→08:57)
[2017-01-26 05:43] LABS: BUN/Creatinine Ratio 17.4 (8-20); Calcium 8.9 mg/dL (8.6-10.3); EGFR African American 169.9 (>60); EGFR Non-African American 132.1 (>60); Potassium 3.2 mmol/L (3.5-5.0)
[2017-01-26] MEDS: Levothyroxine TAB* 137 MCG TAB PO SCH (06:45)
[2017-01-26] MEDS: Mometasone/Formoter 200/5 MDI INH SCH ×2 (07:45→19:26)
[2017-01-26] MEDS: Tiotropium CAP.INH* CAP.INH/18 MCG INH SCH (07:45)
[2017-01-26] MEDS: Losartan TAB* 25 MG PO SCH (08:00)
[2017-01-26] MEDS: Docusate CAP* 100 MG PO SCH ×2 (08:00→22:33)
[2017-01-26] MEDS: hydrALAZINE TAB* 10 MG PO SCH ×3 (08:00→22:34)
[2017-01-26] MEDS: Multivitamins/Minerals TAB PO SCH (08:00)
[2017-01-26] MEDS: Venlafaxine EXT RELEASE CAP* 37.5 MG PO SCH ×2 (08:00→22:33)
[2017-01-26] MEDS: Apixaban* 5 MG TAB PO SCH ×2 (08:00→22:33)
[2017-01-26] MEDS: Thiamine TAB* 100 MG TAB PO SCH (08:00)
[2017-01-26] MEDS: amLODIPine TAB* 5 MG PO SCH (08:00)
[2017-01-26] MEDS: Montelukast Sodium TAB* 10 MG PO SCH (08:01)
[2017-01-26] MEDS: Folic Acid TAB* 1 MG PO SCH (08:01)
[2017-01-26] MEDS: HYDROmorphone TAB* 2 MG PO PRN ×2 (08:01→13:57)
[2017-01-26] MEDS ORDERED: Magnesium Sulfate 2 GM IV IVPB ONE (08:30)
[2017-01-26] MEDS ORDERED: CHLORTHALIDONE 50 MG PO SCH (09:00)
[2017-01-26] MEDS: Potassium Chlor TAB* 20 MEQ TAB.ER PO SCH ×2 (15:10→17:57)
--- NOTE | 2017-01-26 15:10 | PN ---
Subjective Date of Service: 01/26/17 Interval History: Pt is feeling ok currently. She states that from hour 4-6 after receiving the dilaudid she has a difficult time with pain. We discussed cutting the dose to 4mg every 4hrs and seeing how she does on that regimen. She denies any diarrhea. No SOB or chest pain. Family History: Unchanged from Admission Social History: Unchanged from Admission Past Medical History: Unchanged from Admission Objective Active Medications: Acetaminophen (Tylenol Tab*) 650 mg PO Q6H PRN PRN Reason: FEVER/PAIN Last Admin: 01/25/17 08:56 Dose: 650 mg Albuterol (Ventolin 2.5 Mg/3 Ml Neb.Samreen*) 2.5 mg INH Q2H PRN PRN Reason: SOB/WHEEZING Amlodipine Besylate (Norvasc Tab*) 10 mg PO DAILY [facility] Last Admin: 01/26/17 08:00 Dose: 10 mg Apixaban (Eliquis*) 5 mg PO BID [facility] Last Admin: 01/26/17 08:00 Dose: 5 mg Docusate Sodium (Colace Cap*) 200 mg PO BID [facility] Last Admin: 01/26/17 08:00 Dose: 200 mg Dofetilide (Tikosyn Cap*) 500 mcg PO BID [facility] Last Admin: 01/26/17 08:57 Dose: 500 mcg Famotidine (Pepcid Tab*) 40 mg PO BEDTIME [facility] PRN Reason: Protocol Last Admin: 01/25/17 23:33 Dose: 40 mg Folic Acid (Folvite Tab*) 1 mg PO DAILY [facility] Last Admin: 01/26/17 08:01 Dose: 1 mg Hydralazine HCl (Apresoline Tab*) 20 mg PO TID [facility] Last Admin: 01/26/17 13:56 Dose: 20 mg Hydromorphone HCl (Dilaudid Tab*) 4 mg PO Q4H PRN PRN Reason: PAIN Levothyroxine Sodium (Synthroid Tab*) 137 mcg PO DAILY@0600 [facility] Last Admin: 01/26/17 06:45 Dose: 137 mcg Lorazepam (Ativan Inj*) 0 mg IV .PER WAM SCORE [facility] PRN Reason: Protocol Last Admin: 01/25/17 23:51 Dose: 2 mg Losartan Potassium (Cozaar Tab*) 50 mg PO DAILY [facility] Last Admin: 01/26/17 08:00 Dose: 50 mg Melatonin (Melatonin (Nf)) 3 mg PO BEDTIME PRN; Protocol PRN Reason: Sleep Minocycline HCl (Minocycline (Nf)) 100 mg PO QPM [facility] Last Admin: 01/25/17 17:23 Dose: 100 mg Mometasone Furoate/Formoterol Fumar (Dulera 200/5 Mdi*) 2 puff INH BID [facility] Last Admin: 01/26/17 07:45 Dose: Not Given Montelukast Sodium (Singulair Tab*) 10 mg PO DAILY [facility] Last Admin: 01/26/17 08:01 Dose: 10 mg Multivitamins/Minerals (Theragran/Minerals Tab*) 1 tab PO DAILY [facility] Last Admin: 01/26/17 08:00 Dose: 1 tab Potassium Chloride (Klor Con Er Tab*) 40 meq PO Q4H [facility] Stop: 01/26/17 19:01 Thiamine HCl (Vitamin B-1 Tab*) 100 mg PO DAILY [facility] Last Admin: 01/26/17 08:00 Dose: 100 mg Tiotropium [place] (Spiriva Cap.Inh*) 1 cap INH DAILY [facility] Last Admin: 01/26/17 07:45 Dose: Not Given Tramadol HCl (Ultram*) 50 mg PO Q6H PRN PRN Reason: PAIN Last Admin: 01/25/17 12:18 Dose: 50 mg Venlafaxine HCl (Effexor Xr Cap*) 37.5 mg PO BID [facility] Last Admin: 01/26/17 08:00 Dose: 37.5 mg Vital Signs 01/25/17 01/25/17 01/25/17 16:16 17:44 18:03 Temperature 98.2 F 97.4 F Pulse Rate 64 69 Respiratory 14 18 20 Rate Blood Pressure 154/57 168/58 (mmHg) O2 Sat by Pulse 98 98 Oximetry 01/25/17 01/25/17 01/25/17 19:44 19:45 20:00 Temperature 98.4 F Pulse Rate 68 Respiratory 16 20 20 Rate Blood Pressure 168/76 (mmHg) O2 Sat by Pulse 97 Oximetry 01/25/17 01/25/17 01/25/17 21:37 22:00 23:37 Temperature 98.4 F Pulse Rate 75 80 Respiratory 20 16 18 Rate Blood Pressure 164/73 (mmHg) O2 Sat by Pulse 94 98 Oximetry 01/25/17 01/25/17 01/26/17 23:50 23:51 00:51 Temperature Pulse Rate Respiratory 16 16 18 Rate Blood Pressure (mmHg) O2 Sat by Pulse Oximetry 01/26/17 01/26/17 01/26/17 01:50 03:11 06:28 Temperature 98.5 F 97.8 F Pulse Rate 64 74 Respiratory 18 16 16 Rate Blood Pressure 153/79 162/83 (mmHg) O2 Sat by Pulse 100 100 Oximetry 01/26/17 01/26/17 01/26/17 07:45 08:00 08:01 Temperature Pulse Rate 63 Respiratory 20 16 16 Rate Blood Pressure (mmHg) O2 Sat by Pulse 96 Oximetry 01/26/17 01/26/17 01/26/17 09:12 10:01 11:44 Temperature 98.4 F 98.6 F Pulse Rate 78 57 Respiratory 16 14 11 Rate Blood Pressure 155/69 135/71 (mmHg) O2 Sat by Pulse 92 90 Oximetry 01/26/17 01/26/17 13:31 13:57 Temperature 98.0 F Pulse Rate Respiratory 16 14 Rate Blood Pressure 130/50 (mmHg) O2 Sat by Pulse Oximetry Oxygen Devices in Use Now: None Appearance: Elderly female lying in bed, NAD Eyes: No Scleral Icterus Ears/Nose/Mouth/Throat: Mucous Membranes Moist Respiratory: Symmetrical Chest Expansion and Respiratory Effort, Clear to Auscultation Cardiovascular: NL Sounds; No Murmurs; No JVD, RRR, No Edema Abdominal: NL Sounds; No Tenderness; No Distention Extremities: No Clubbing, Cyanosis Skin: No Rash or Ulcers, No Nodules or Sclerosis Neurological: Alert and Oriented x 3 Result Diagrams: 01/24/17 21:37 01/26/17 04:46 Microbiology and Other Data: Microbiology 01/26/17 06:45 Nasal Screen MRSA (PCR)(DEVIN) - Final Nasal Mrsa Negative Assess/Plan/Problems-Billing Ms. Gusman is a 76 yo female with PMH significant for alcohol abuse and chronic pain issues who was recently discharged by pain management for misuse of opioids who presented to the emergency room intoxicated after a fall. - Patient Problems (1) Falls Current Visit: Yes Status: Acute Comment: Likely secondary to alcohol intoxication. Continue PT/OT and plan on STR on discharge. (2) Chronic pain Current Visit: Yes Status: Chronic Code(s): G89.29 - OTHER CHRONIC PAIN SNOMED Code(s): 82818850 Comment: Continue prn dilaudid 4mg po q4hr. Dr. Tavarez has seen the patient but not left recommendations yet. (3) Alcohol abuse Current Visit: Yes Status: Acute Code(s): F10.10 - ALCOHOL ABUSE, UNCOMPLICATED SNOMED Code(s): 54976618 Comment: Unclear how much pt has been drinking recently. Continue [facility] protocol but extend the interval to q4hr. (4) Depression Current Visit: Yes Status: Acute Code(s): F32.9 - MAJOR DEPRESSIVE DISORDER , SINGLE EPISODE, UNSPECIFIED SNOMED Code(s): 36721160 Comment: Continue effexor. (5) Afib Current Visit: Yes Status: Chronic Code(s): I48.91 - UNSPECIFIED ATRIAL FIBRILLATION SNOMED Code(s): 73034158 Comment: Pt currently in NSR. Continue tikosyn and eliquis. (6) COPD with chronic bronchitis Current Visit: Yes Status: Chronic Code(s): J44.9 - CHRONIC OBSTRUCTIVE PULMONARY DISEASE, UNSPECIFIED SNOMED Code(s): 368898271 Comment: No signs of exacerbation at this time. Continue home inhalers/nebs. (7) CVID (common variable immunodeficiency) Current Visit: Yes Status: Chronic Code(s): D83.9 - COMMON VARIABLE IMMUNODEFICIENCY, UNSPECIFIED SNOMED Code(s): 92294476 Comment: No active issues. (8) Hx of right elbow infect Current Visit: No Status: Chronic Comment: Pt has h/o MRSA infected prosthesis. No acute issues at this time. Continue suppressive minocycline. (9) Hypertension Current Visit: Yes Status: Chronic Code(s): I10 - ESSENTIAL (PRIMARY) HYPERTENSION SNOMED Code(s): 87345088 Comment: BP is under better control on amlodipine, hydralazine and telmisartan. (10) Hypothyroid Current Visit: Yes Status: Chronic Code(s): E03.9 - HYPOTHYROIDISM, UNSPECIFIED SNOMED Code(s): 53778103 Comment: Continue current dose of synthroid. (11) DVT prophylaxis Current Visit: Yes Status: Acute Code(s): IAF4518 - SNOMED Code(s): 254105849 Comment: Eliquis (12) DNR (do not resuscitate) Current Visit: Yes Status: Acute Status and Disposition: .
[2017-01-26] MEDS: HYDROmorphone TAB* 4 MG PO PRN (17:57)
[2017-01-26] MEDS: MINOCYCLINE 50 MG PO SCH (17:57)
[2017-01-26] MEDS: LORazepam INJ* 2 MG/ML 1 ML VIAL IV SCH ×2 (20:02→22:29)
--- NOTE | 2017-01-26 21:32 | CONS ---
INPATIENT PAIN CONSULTATION: DATE OF CONSULT: 01/26/17 PROVIDER REFERRING: Ina Zimmerman NP. REASON FOR CONSULTATION: Pain. HISTORY OF PRESENT ILLNESS: Dana Gusman is a 76-year-old female. Roughly 40 years ago, she was riding a horse and had a horseback accident and this left her with chronic pain. She has been on opioid pain medications for roughly the past 30 years. She has been a patient at the [facility] for at least the past 16 years, if not longer. Recently, however, the patient tried to overdose on her pain pills. This was later followed by difficulty with her throwing out her pain medications and then calling the Pain Clinic because she was in so much pain. As a result of her repeated risky behavior, it was felt she was very high risk for opioid treatment, and it was felt that the Pain Clinic could no longer safely write opioids for her. Following termination at the pain clinic, she went to her primary care doctor, Dr. Andrey Terry. He gave her a week's worth of oral Dilaudid. prior to that, she had been on Exalgo 28 mg a day. Exalgo was a long-acting form of Dilaudid. The patient took her week's worth in only a few days and again ran short. As a result, she was in increasing pain. On January 23, she was in a lot of pain and got up and poured herself three 6- to 7-ounce glasses of wine to alleviate her pain she said. She became intoxicated from the wine and fell and bumped her head. At that point, her brought her in to the emergency room. She had CAT scans done of her brain, cervical spine, lumbar spine, and thoracic spine, which did not reveal any acute fractures. She was admitted to the hospitalist service. She has been in the hospital since. Ina Wheat discussed the case with me last night. At that point, she was on 4 mg of oral Dilaudid every 4 hours, but said her pain control was not ideal. I suggested switching her to 6 mg every 6 hours until I could get in and see her. The patient tells me that she currently feels like her pain is managed on the Dilaudid 6 q.6. She recognizes that she cannot go back to the pain clinic as a patient because of her recent transgressions. She also recognizes that self- medicating with alcohol was probably not the smartest choice. I am asked to see her in consultation. PAST MEDICAL HISTORY: Extensive. She has a history of atrial fibrillation and is on chronic anticoagulation. She has had a history of breast cancer, aortic stenosis, hypertension, psoriatic arthritis. She has had an elbow replacement that got infected. She did have an intrathecal morphine pump at one point. She has had bilateral total knee replacements and she has had multiple back surgeries. CURRENT MEDICATIONS: Include: 1. Norvasc. 2. Eliquis. 3. Tikosyn. 4. She is on hydralazine. 5. Dilaudid. 6. Synthroid. 7. Cozaar. 8. Minocycline. 9. Dulera inhaler. 10. Singulair. 11. Potassium. 12. Spiriva. 13. Effexor. ALLERGIES: The patient's allergies include CELEBREX, METHOTREXATE, VANCOMYCIN. SOCIAL HISTORY: She lives with her . She is a moderate user of alcohol. Does not smoke. She tells me she went to AA in the past, but has not gone to AA in a while. She tells me she drinks alcohol roughly 4 times a week. REVIEW OF SYSTEMS: No current shortness of breath or chest pain. BRIEF PHYSICAL EXAM: Her temperature is 98.0, blood pressure is 130/50, pulse is 57, respirations 16. HEENT: Her extraocular movements appear to be intact. She is awake, alert. Her extremities show scars over both knees. She does have deformities in several joints consistent with significant arthritis. She does have a slight scoliosis. ASSESSMENT: 1. Chronic pain. 2. Failed back. 3. History of opioid abuse. 4. History of alcohol abuse. PLAN: At this point, we do not have a lot of good options for pain control with opioids. Noting that she has been on chronic opioid treatment for 30 years , perhaps, the best option might be to try her on Suboxone. She would likely need roughly Suboxone 12. Unfortunately, there are no doctors in the hospital that can write for Suboxone. I would suggest calling her primary care doctor to see if he is willing to arrange this. Clearly, given her history of alcohol abuse and a history of a past suicide attempt, she is at very high risk for traditional opioids. She does not seem to be capable of self-administration in her current state. The pain clinic here will not be taking her back as a patient. Consideration might be given to enrolling her into a rehab or a detox program. Thank you for the consultation. [id number]/[facility] #: [id number] NISHA
[2017-01-26] MEDS: Famotidine TAB* 20 MG PO SCH (22:35)
[2017-01-26 23:57] LABS: Magnesium 1.8 mg/dL (1.9-2.7)
[2017-01-27 00:41] LABS: Potassium 4.4 mmol/L (3.5-5.0)
[2017-01-27] MEDS: Dofetilide CAP* 500 MCG PO SCH ×2 (00:57→09:55)
[2017-01-27] MEDS: HYDROmorphone TAB* 4 MG PO PRN ×5 (01:06→18:00)
[2017-01-27] MEDS: traMADol TAB* 50 MG PO PRN (05:38)
[2017-01-27] MEDS: Levothyroxine TAB* 137 MCG TAB PO SCH (05:38)
[2017-01-27 06:34] LABS: BUN/Creatinine Ratio 19.6 (8-20); Calcium 8.8 mg/dL (8.6-10.3); EGFR African American 135.4 (>60); EGFR Non-African American 105.3 (>60); Potassium 4.1 mmol/L (3.5-5.0)
[2017-01-27] MEDS: Tiotropium CAP.INH* CAP.INH/18 MCG INH SCH (07:32)
[2017-01-27] MEDS: Mometasone/Formoter 200/5 MDI INH SCH (07:33)
[2017-01-27] MEDS: Venlafaxine EXT RELEASE CAP* 37.5 MG PO SCH (09:54)
[2017-01-27] MEDS: Montelukast Sodium TAB* 10 MG PO SCH (09:55)
[2017-01-27] MEDS: Losartan TAB* 25 MG PO SCH (09:55)
[2017-01-27] MEDS: Docusate CAP* 100 MG PO SCH (09:55)
[2017-01-27] MEDS: Multivitamins/Minerals TAB PO SCH (09:55)
[2017-01-27] MEDS: Folic Acid TAB* 1 MG PO SCH (09:55)
[2017-01-27] MEDS: Apixaban* 5 MG TAB PO SCH (09:55)
[2017-01-27] MEDS: amLODIPine TAB* 5 MG PO SCH (09:55)
[2017-01-27] MEDS: Thiamine TAB* 100 MG TAB PO SCH (09:56)
[2017-01-27] MEDS: hydrALAZINE TAB* 10 MG PO SCH ×2 (09:56→14:08)
--- NOTE | 2017-01-27 15:27 | PN ---
Subjective Date of Service: 01/27/17 Interval History: Pt states she feels poorly related to pain. She states she is the most comfortable lying still. She denies any diarrhea. No SOB. Family History: Unchanged from Admission Social History: Unchanged from Admission Past Medical History: Unchanged from Admission Objective Active Medications: Acetaminophen (Tylenol Tab*) 650 mg PO Q6H PRN PRN Reason: FEVER/PAIN Last Admin: 01/25/17 08:56 Dose: 650 mg Albuterol (Ventolin 2.5 Mg/3 Ml Neb.Samreen*) 2.5 mg INH Q2H PRN PRN Reason: SOB/WHEEZING Amlodipine Besylate (Norvasc Tab*) 10 mg PO DAILY [facility] Last Admin: 01/27/17 09:55 Dose: 10 mg Apixaban (Eliquis*) 5 mg PO BID [facility] Last Admin: 01/27/17 09:55 Dose: 5 mg Docusate Sodium (Colace Cap*) 200 mg PO BID [facility] Last Admin: 01/27/17 09:55 Dose: 200 mg Dofetilide (Tikosyn Cap*) 500 mcg PO BID [facility] Last Admin: 01/27/17 09:55 Dose: 500 mcg Famotidine (Pepcid Tab*) 40 mg PO BEDTIME [facility] PRN Reason: Protocol Last Admin: 01/26/17 22:35 Dose: 40 mg Folic Acid (Folvite Tab*) 1 mg PO DAILY [facility] Last Admin: 01/27/17 09:55 Dose: 1 mg Hydralazine HCl (Apresoline Tab*) 20 mg PO TID [facility] Last Admin: 01/27/17 14:08 Dose: 20 mg Hydromorphone HCl (Dilaudid Tab*) 4 mg PO Q4H PRN PRN Reason: PAIN Last Admin: 01/27/17 14:08 Dose: 4 mg Levothyroxine Sodium (Synthroid Tab*) 137 mcg PO DAILY@0600 [facility] Last Admin: 01/27/17 05:38 Dose: 137 mcg Lorazepam (Ativan Inj*) 0 mg IV .PER WAM SCORE [facility] PRN Reason: Protocol Last Admin: 01/26/17 22:29 Dose: 4 mg Losartan Potassium (Cozaar Tab*) 50 mg PO DAILY [facility] Last Admin: 01/27/17 09:55 Dose: 50 mg Melatonin (Melatonin (Nf)) 3 mg PO BEDTIME PRN; Protocol PRN Reason: Sleep Minocycline HCl (Minocycline (Nf)) 100 mg PO QPM [facility] Last Admin: 01/26/17 17:57 Dose: 100 mg Mometasone Furoate/Formoterol Fumar (Dulera 200/5 Mdi*) 2 puff INH BID [facility] Last Admin: 01/27/17 07:33 Dose: Not Given Montelukast Sodium (Singulair Tab*) 10 mg PO DAILY [facility] Last Admin: 01/27/17 09:55 Dose: 10 mg Multivitamins/Minerals (Theragran/Minerals Tab*) 1 tab PO DAILY [facility] Last Admin: 01/27/17 09:55 Dose: 1 tab Thiamine HCl (Vitamin B-1 Tab*) 100 mg PO DAILY [facility] Last Admin: 01/27/17 09:56 Dose: 100 mg Tiotropium [place] (Spiriva Cap.Inh*) 1 cap INH DAILY [facility] Last Admin: 01/27/17 07:32 Dose: Not Given Tramadol HCl (Ultram*) 50 mg PO Q6H PRN PRN Reason: PAIN Last Admin: 01/27/17 05:38 Dose: 50 mg Venlafaxine HCl (Effexor Xr Cap*) 37.5 mg PO BID [facility] Last Admin: 01/27/17 09:54 Dose: 37.5 mg Vital Signs 01/26/17 01/26/17 01/26/17 15:30 15:43 17:57 Temperature 98.1 F Pulse Rate 63 Respiratory 16 16 16 Rate Blood Pressure 151/61 (mmHg) O2 Sat by Pulse 100 Oximetry 01/26/17 01/26/17 01/26/17 19:26 19:57 20:01 Temperature 98.1 F Pulse Rate 68 66 Respiratory 18 20 17 Rate Blood Pressure 157/65 (mmHg) O2 Sat by Pulse 93 99 Oximetry 01/26/17 01/26/17 01/26/17 20:02 20:05 21:02 Temperature Pulse Rate Respiratory 20 20 20 Rate Blood Pressure (mmHg) O2 Sat by Pulse Oximetry 01/26/17 01/26/17 01/27/17 22:29 23:29 00:17 Temperature Pulse Rate 67 Respiratory 22 20 14 Rate Blood Pressure 148/63 (mmHg) O2 Sat by Pulse 93 Oximetry 01/27/17 01/27/17 01/27/17 01:06 03:06 03:54 Temperature Pulse Rate 70 Respiratory 20 18 20 Rate Blood Pressure 165/68 (mmHg) O2 Sat by Pulse 96 Oximetry 01/27/17 01/27/17 01/27/17 05:38 05:42 06:38 Temperature Pulse Rate 66 Respiratory 20 20 18 Rate Blood Pressure 130/59 (mmHg) O2 Sat by Pulse 95 Oximetry 01/27/17 01/27/17 01/27/17 07:42 08:00 09:01 Temperature 98.2 F Pulse Rate 70 Respiratory 20 16 16 Rate Blood Pressure 130/67 (mmHg) O2 Sat by Pulse 97 Oximetry 01/27/17 01/27/17 01/27/17 09:56 09:57 11:40 Temperature 98.3 F 98.2 F Pulse Rate 55 51 Respiratory 16 16 12 Rate Blood Pressure 142/57 154/71 (mmHg) O2 Sat by Pulse 97 99 Oximetry 01/27/17 01/27/17 11:57 14:08 Temperature Pulse Rate Respiratory 14 16 Rate Blood Pressure (mmHg) O2 Sat by Pulse Oximetry Oxygen Devices in Use Now: None Appearance: Elderly female lying in bed, NAD Eyes: No Scleral Icterus Ears/Nose/Mouth/Throat: Mucous Membranes Moist Respiratory: Symmetrical Chest Expansion and Respiratory Effort, Clear to Auscultation Cardiovascular: NL Sounds; No Murmurs; No JVD, RRR, No Edema Abdominal: NL Sounds; No Tenderness; No Distention Extremities: No Clubbing, Cyanosis Skin: No Rash or Ulcers, No Nodules or Sclerosis Neurological: Alert and Oriented x 3 Result Diagrams: 01/24/17 21:37 01/27/17 05:59 Microbiology and Other Data: Microbiology 01/26/17 06:45 Nasal Screen MRSA (PCR)(DEVIN) - Final Nasal Mrsa Negative Assess/Plan/Problems-Billing Ms. Gusman is a 76 yo female with PMH significant for alcohol abuse and chronic pain issues who was recently discharged by pain management for misuse of opioids who presented to the emergency room intoxicated after a fall. - Patient Problems (1) Falls Current Visit: Yes Status: Acute Comment: Likely secondary to alcohol intoxication. Pt does not qualify for STR. Will send pt home today and have VNS set up as well as home PT. (2) Chronic pain Current Visit: Yes Status: Chronic Code(s): G89.29 - OTHER CHRONIC PAIN SNOMED Code(s): 70639690 Comment: Continue prn dilaudid 4mg po [id number] send Rx to get her through to her appt on 01/31/17 at [address] Terry will then decide on a treatment plan. She does not want to consider suboxone at this time. (3) Alcohol abuse Current Visit: Yes Status: Acute Code(s): F10.10 - ALCOHOL ABUSE, UNCOMPLICATED SNOMED Code(s): 63533023 Comment: Unclear how much pt has been drinking recently. Pt has not been scoring on the [facility] protocol. (4) Depression Current Visit: Yes Status: Acute Code(s): F32.9 - MAJOR DEPRESSIVE DISORDER , SINGLE EPISODE, UNSPECIFIED SNOMED Code(s): 96433345 Comment: Continue effexor. (5) Afib Current Visit: Yes Status: Chronic Code(s): I48.91 - UNSPECIFIED ATRIAL FIBRILLATION SNOMED Code(s): 87623872 Comment: Pt currently in NSR. Continue tikosyn and eliquis. (6) COPD with chronic bronchitis Current Visit: Yes Status: Chronic Code(s): J44.9 - CHRONIC OBSTRUCTIVE PULMONARY DISEASE, UNSPECIFIED SNOMED Code(s): 100272731 Comment: No signs of exacerbation at this time. Continue home inhalers/nebs. (7) CVID (common variable immunodeficiency) Current Visit: Yes Status: Chronic Code(s): D83.9 - COMMON VARIABLE IMMUNODEFICIENCY, UNSPECIFIED SNOMED Code(s): 41976518 Comment: No active issues. (8) Hx of right elbow infect Current Visit: Yes Status: Chronic Comment: Pt has h/o MRSA infected prosthesis. No acute issues at this time. Continue suppressive minocycline. (9) Hypertension Current Visit: Yes Status: Chronic Code(s): I10 - ESSENTIAL (PRIMARY) HYPERTENSION SNOMED Code(s): 32491269 Comment: BP is under fair control on amlodipine, hydralazine and losartan ( autosub for telmisartan). (10) Hypothyroid Current Visit: Yes Status: Chronic Code(s): E03.9 - HYPOTHYROIDISM, UNSPECIFIED SNOMED Code(s): 44915688 Comment: Continue current dose of synthroid. (11) DVT prophylaxis Current Visit: Yes Status: Acute Code(s): CVD7375 - SNOMED Code(s): 029493932 Comment: Marisel (12) DNR (do not resuscitate) Current Visit: Yes Status: Acute Status and Disposition: d/c pt home
[2017-01-27 16:07] VITALS: BP 124/58
[2017-01-27] MEDS: MINOCYCLINE 50 MG PO SCH (18:00)
--- NOTE | 2017-01-28 00:29 | DS ---
CC: Dr. Terry * DISCHARGE SUMMARY: DATE OF ADMISSION: 01/24/17 DATE OF DISCHARGE: 01/27/17 PRIMARY CARE PROVIDER: Ernst Terry MD PRINCIPAL DIAGNOSES: 1. Hyponatremia secondary to alcohol use and chlorthalidone - resolving. 2. Chronic pain with recurrent history of misuse of narcotic pain medications. SECONDARY DIAGNOSES: 1. Atrial fibrillation. 2. Common variable immunodeficiency. 3. History of breast cancer. 4. Aortic stenosis. 5. Pulmonary hypertension. DISCHARGE MEDICATIONS: 1. HYQVIA one dose subcutaneous monthly. 2. Hydralazine 20 mg p.o. t.i.d. 3. Telmisartan 80 mg p.o. daily. 4. Prednisone 5 mg p.o. daily. 5. Eliquis 5 mg p.o. b.i.d. 6. Vitamin D3 2000 units p.o. daily. 7. Albuterol one neb inhaled q.6 hours, p.r.n. shortness of breath. 8. Flovent 220 micrograms 2 puffs inhaled twice daily. 9. Dofetilide 500 mcg p.o. b.i.d. 10. Colace 250 mg p.o. daily. 11. Vitamin B12 2000 mcg p.o. daily. 12. Levothyroxine 137 mcg p.o. daily. 13. Ibuprofen 400 mg p.o. q.4-6 hours p.r.n. pain. 14. Multivitamin 1 tab p.o. daily. 15. Singulair 10 mg p.o. daily. 16. Minocycline 100 mg p.o. q.h.s. 17. Ranitidine 300 mg p.o. q.h.s. 18. Probiotic one cap p.o. daily. 19. Venlafaxine ER 37.5 mg p.o. b.i.d. 20. Forteo 20 mcg subcutaneous daily. 21. Amlodipine 10 mg p.o. daily. 22. Hydromorphone 4 mg p.o. q.4 hours p.r.n. pain. HOSPITAL COURSE: Ms. Gusman is a 76-year-old female with multiple chronic medical conditions including chronic pain, who had been a patient of the pain clinic up until 01/18/17 when she was discharged from the clinic for repeated history of misuse of her narcotic pain medications. At that time, the patient had gone through 1-month supply of her long-acting Dilaudid within a week and a half. Additionally, the patient has a history of AFib on Tikosyn and Eliquis as well as CVID, who presented to the emergency room with complaints of her being unsafe. The patient's recently learned prior to admission that she had been supplementing her pain medications with an excessive amount of alcohol. He felt that he did not have the ability to continue to care for her at home. The patient had a mechanical fall on the day of admission, which prompted the evaluation. The patient ultimately was admitted for evaluation. She was also found to be hyponatremic with a sodium of 124 that was felt to be likely related to her alcohol use. The patient's sodium did improve to 127 where it has been stable. Her chlorthalidone has been discontinued, which I believe should remain off due to her history of alcohol consumption and her hyponatremia. Her blood pressure is under fair control off the chlorthalidone, though she may need adjustments in her antihypertensive regimen. The patient was started on p.r.n. short-acting Dilaudid, initially 6 mg every 6 hours as needed for pain; however, changed to 4 mg every 4 hours as the patient states the pain medication did not last that long. The big issue at this time is the patient's continued ongoing pain management. She has been dismissed from the [facility]. Many conversations have been held between providers at [facility] and the patient's primary care provider at [facility]. At this point, the patient does not wish to be started on Suboxone, which has been offered. In fact, she wishes just to stay on treatment for her pain. The patient has been given 24 tablets of Dilaudid 4 mg to be used until her appointment with Dr. Terry on 01/31/17 at noon. The patient is going to be set up with visiting nurse services at home as well as a lock box. The patient's will need to step up and ensure that she is not having access to her pain medications herself. It is felt that the patient's fall that she had on the day of admission was likely related to alcohol intoxication. At this point , the patient has been evaluated by Physical Therapy and Occupational Therapy and felt to be stable for discharge home. In terms of the patient's chronic medical condition, she has been maintained on her usual home medication regimen with the exception of discontinuing the chlorthalidone due to her hypothyroidism. The patient will continue with her usual doses of medications. Again, the patient has a followup appointment with Dr. Terry on 01/31/17. FOLLOWUP CONCERNS: The patient is being discharged home today, 01/27/17. ACTIVITY LEVEL: As tolerated. DIET: Regular. CONDITION ON DISCHARGE: Stable. TIME SPENT: Thirty five minutes was spent discharging this patient. [id number]/[facility] #: [id number] NISHA
== END 2017-01-27 18:05 | disposition home health service (06) | DRG 897 ==
LOC: ED 20:24 → MEDTELE 22:26 → MED 01-25 20:33
PROVIDERS: ADMIT Hospitalist; ATTEND Hospitalist
DX: F10.229 Alcohol dependence with intoxication, unspecified (principal); F11.90 Opioid use, unspecified, uncomplicated; D83.9 Common variable immunodeficiency, unspecified; I27.2 Other secondary pulmonary hypertension; E87.1 Hypo-osmolality and hyponatremia; I48.91 Unspecified atrial fibrillation; T50.2X5A Adverse effect of carbonic-anhydrase inhibitors, benzothiadiazides and other diuretics, initial encounter; G89.29 Other chronic pain; I35.0 Nonrheumatic aortic (valve) stenosis; W18.30XA Fall on same level, unspecified, initial encounter; E03.9 Hypothyroidism, unspecified; M54.5 Low back pain; M54.32 Sciatica, left side; Y90.7 Blood alcohol level of 200-239 mg/100 ml; L40.50 Arthropathic psoriasis, unspecified; Z96.653 Presence of artificial knee joint, bilateral; E66.3 Overweight; Z66 Do not resuscitate; I10 Essential (primary) hypertension; J44.9 Chronic obstructive pulmonary disease, unspecified; Z85.3 Personal history of malignant neoplasm of breast; Z79.52 Long term (current) use of systemic steroids; Z79.01 Long term (current) use of anticoagulants; Y92.009 Unspecified place in unspecified non-institutional (private) residence as the place of occurrence of the external cause; Z91.5 Personal history of self-harm; Z87.440 Personal history of urinary (tract) infections; Z90.10 Acquired absence of unspecified breast and nipple; Z87.891 Personal history of nicotine dependence; Z90.49 Acquired absence of other specified parts of digestive tract; Z84.0 Family history of diseases of the skin and subcutaneous tissue; Z68.26 Body mass index [BMI] 26.0-26.9, adult; Z88.1 Allergy status to other antibiotic agents; Z88.8 Allergy status to other drugs, medicaments and biological substances; Z91.048 Other nonmedicinal substance allergy status; Z98.49 Cataract extraction status, unspecified eye; Z86.14 Personal history of Methicillin resistant Staphylococcus aureus infection
CPT/HCPCS: 36415; 70450; 72125; 72128; 72131; 80048; 80053; 80076; 80320; 82550; 82728; 83540; 83550; 83735; 83930; 84132; 85025; 85610; 85730; 87641; 94640; 94760; A9270-GY; G0480; J1170; J2060

== ENCOUNTER 2017-08-16 18:31 | Emergency (ER) | payer MEDICARE, BC ==
[2017-08-16] MEDS ORDERED: Acetaminophen TAB* 325 MG PO ONE (23:27)
[2017-08-16] MEDS ORDERED: HYDROmorphone TAB* 4 MG PO ONE (23:29)
[2017-08-16] MEDS ORDERED: Albuterol 2.5 MG/3 ML NEB.SOL* (0.083%) INH ONE (23:30)
[2017-08-16] MEDS ORDERED: Albuterol/Ipratropium NEB.SOL* Albuterol 2.5 MG/Ipratropium 0.5 MG 3 ML INH ONE (23:30)
[2017-08-16] MEDS ORDERED: predniSONE TAB* 20 MG PO ONE (23:30)
[2017-08-17] MEDS ORDERED: Oseltamivir CAP* 75 MG PO ONE (00:49)
--- NOTE | 2017-08-17 00:57 | ED ---
Angel Beck Gabriel, scribed for Elfar, Abdul, MD on 08/16/17 at 2314 . Respiratory - HPI Summary HPI Summary: This patient is a 76 year old F presenting to [facility] accompanied by her with a chief complaint of SOB since 5 weeks ago. Patient reports fever 102, chest congestion, and weakness. She has chronic bronchitis that has been exacerbated for the last 5 weeks. Patient is taking antibiotics and has been for 2 weeks and it hasnt alleviated any symptoms. Patient recently had ankle replacement surgery. - History of Current Complaint Chief Complaint: EDGeneral Stated Complaint: COUGH /FEVER/WEAKNESS Time Seen by Provider: 08/16/17 22:43 Hx Obtained From: Patient Onset/Duration: Lasting Weeks - 5, Still Present Timing: Constant Initial Severity: Mild Current Severity: Mild Pain Intensity: 6 Character: Cough (Nonproductive) Sputum Amount: None Associated Signs and Symptoms: Fever, SOB, Chest Pain with Cough - Allergy/Home Medications Allergies/Adverse Reactions: Allergies Allergy/AdvReac Type Severity Reaction Status Date / Time Celecoxib [From Celebrex] Allergy Mild Rash Verified 08/16/17 18:48 Methotrexate Allergy Mild See Comment Verified 08/16/17 18:48 Vancomycin AdvReac Mild Rash Verified 08/16/17 18:48 CHLORAHEXADINE Allergy PRE SURG Uncoded 08/16/17 18:48 SCRUB - BRIGHT RED RASH adhesives AdvReac Intermediate Rash Uncoded 08/16/17 18:48 PMH/Surg Hx/FS Hx/Imm Hx Endocrine/Hematology History: Reports: Hx Anticoagulant Therapy - eliquis, Hx Thyroid Disease - hypothyroidism Denies: Hx Blood Disorders, Hx Blood Transfusions, Hx Bone Marrow Disease, Hx Diabetes, Hx Systemic Lupus Erythematosus, Hx Sickle Cell Disease, Hx Anemia , Hx Unexplained Bleeding, Other Endocrine/Hematological Disorders Cardiovascular History: Reports: Hx Atrial Fibrillation - on blood thinner, Hx Hypercholesterolemia, Hx Hypertension, Hx Valvular Heart Disease - Aortic Valve disease, Other Cardiovascular Problems/Disorders - ON BLOOD THINNER MEDICATION PER Denies: Hx Aneurysm, Hx Angina, Hx Angioplasty, Hx Auto Implanted Cardiovert Defib, Hx Cardiac Arrest, Hx Cardiomegaly, Hx Congenital Heart Disease, Hx Congestive Heart Failure, Hx Coronary Artery Disease, Hx Deep Vein Thrombosis, Hx Embolism, Hx Hypotension, Hx Pacemaker/ICD, Hx Peripheral Vascular Disease, Hx Rheumatic Fever, Hx Syncope Respiratory History: Reports: Hx Sleep Apnea, Other Respiratory Problems/ Disorders - Pulmonary HTN Denies: Hx Asthma, Hx Chronic Bronchitis, Hx Chronic Obstructive Pulmonary Disease (COPD) - with chronic bronchitis, Hx Cystic Fibrosis, Hx Lung Cancer, Hx Pleural Effusion, Hx Pneumonia, Hx Pulmonary Edema, Hx Pulmonary Embolism, Hx Seasonal Allergies GI History: Reports: Hx Gastroesophageal Reflux Disease, Hx Ulcer - gerd, Other GI Disorders - CONSTIPATION- DIET CONTROLLED Denies: Hx Cirrhosis, Hx Crohn's Disease, Hx Diverticulosis, Hx Gall Bladder Disease, Hx Gastrointestinal Bleed, Hx Hiatal Hernia, Hx Irritable Bowel, Hx Jaundice, Hx Obstructive Bowel, Hx Ileostomy, Hx Pyloric Stenosis History: Denies: Hx Renal Disease Musculoskeletal History: Reports: Hx Arthritis, Hx Back Problems, Hx Orthopedic Injury - Right arm reconstruction r/t traumatic injury, Other Musculoskeletal History - Left Fibula Fracture 08/03/16, psoriatic arthritis Denies: Hx Bursitis, Hx Congenital Bone Abnormalities, Hx Fibromyalgia, Hx Gout, Hx Osteoporosis, Hx Scoliosis, Hx Tendonitis Sensory History: Reports: Hx Cataracts, Hx Contacts or Glasses Denies: Hx Eye Injury, Hx Eye Prosthesis, Hx Glaucoma, Hx Legally Blind, Hx Macular Degeneration, Hx Vision Problem, Hx Deafness, Hx Hearing Aid, Hx Hearing Problem, Other Sensory Impairments Opthamlomology History: Reports: Hx Cataracts, Hx Contacts or Glasses Denies: Hx Eye Injury, Hx Eye Prosthesis, Hx Glaucoma, Hx Legally Blind, Hx Macular Degeneration, Hx Vision Problem, Other Sensory Impairments Neurological History: Denies: Hx CVA, Other Neuro Impairments/Disorders - spinal cord deformities Psychiatric History: Reports: Hx Depression, Hx Suicide Attempt, Hx Substance Abuse - EtOH Denies: Hx Anxiety, Hx Attention Deficit Hyperactivity Disorder, Hx Eating Disorder, Hx Panic Disorder, Hx Post Traumatic Stress Disorder, Hx Inpatient Treatment, Hx Community Mental Health Tx, Hx Schizophrenia, Hx Bipolar Disorder , Hx of Violent Episodes Against Others, Other Psychiatric Issues/Disorders - Cancer History Cancer Type, Location and Year: Rt BREAST - MASTECTOMY Hx Chemotherapy: No Hx Radiation Therapy: Yes Hx Palliative Cancer Treatment: No - Surgical History Surgery Procedure, Year, and Place: CATARACTS. LT FOOT - REPAIR - RECON W/ METAL. LUMBAR - DISCETOMY, HERNIATION. NON- MALIGNANT TUMOR REMOVED. REN KNEE REPLACEMENTS ( 1999 & 2009). Rt ELBOW - ARTIFICIAL JOINT AND METAL PLATE ABOVE JOINT. TONSILECTOMY. APPENDECTOMY. OVARIAN CYST REMOVED - REN. Rt MASTECTOMY - W/ RADIATION. left ankle x2 (has hardware) Hx Anesthesia Reactions: No - Immunization History Date of Tetanus Vaccine: unknown Date of Influenza Vaccine: unknown Infectious Disease History: No Infectious Disease History: Reports: Hx of Known/Suspected MRSA - right elbow, 2013 Denies: Hx Clostridium Difficile, Hx Hepatitis, Hx Human Immunodeficiency Virus (HIV), Hx Shingles, Hx Tuberculosis, Hx Known/Suspected VRE, Hx Known/ Suspected VRSA, History Other Infectious Disease, Traveled Outside the [place] in Last 30 Days - Family History Known Family History: Positive: Other - Breast CA - Social History Lives: With Family Alcohol Use: Daily Substance Use Type: Reports: None Substance Use Comment - Amount & Last Used: DILAUDID Hx Tobacco Use: Yes Smoking Status (MU): Former Smoker Type: Cigarettes Amount Used/How Often: 5 a day Length of Time of Smoking/Using Tobacco: 15 yrs Have You Smoked in the Last Year: No Review of Systems Positive: Fever Positive: Shortness Of Breath, Cough Positive: Weakness All Other Systems Reviewed And Are Negative: Yes Physical Exam Vital Signs On Initial Exam: Initial Vitals Temp Pulse Resp BP Pulse Ox 99.4 F 67 20 160/44 95 08/16/17 18:40 08/16/17 18:40 08/16/17 18:40 08/16/17 18:40 08/16/17 18:40 - [place] Coma Scale Coma Scale Total: 15 Diagnostics - Vital Signs Vital Signs Temp Pulse Resp BP Pulse Ox 08/16/17 21:21 99.6 F 66 18 151/86 95 08/16/17 18:40 99.4 F 67 20 160/44 95 - Laboratory Lab Statement: Any lab studies that have been ordered have been reviewed, and results considered in the medical decision making process. - Radiology CXR Radiology Interpretation Completed By: ED Physician - no acute process Re-Evaluation - Re-Evaluation First Eval Re-Evaluation Time: 23:12 Change: Worse - Patient is complaining of pain and is requesting Hydromorphone 12mg XR. Discussed this with Pineda the pharmacist and he says they do not carry XR. Disposition - Course Assessment/Plan: This patient is a 76 year old F presenting to [facility] accompanied by her with a chief complaint of SOB since 5 weeks ago. Patient reports fever 102, chest congestion, and weakness. She has chronic bronchitis that has been exacerbated for the last 5 weeks. Patient is taking antibiotics and has been for 2 weeks and it hasnt alleviated any symptoms. Patient recently had ankle replacement surgery. CXR reveals no acute process. Test results with no significant abnormalities. Although he her was just seen at [facility] ED and had a positive Flu A swab so she will be treated as such. In the ED course the patient was given Dilaudid and albuterol. Patient will be discharged with prescription for Tamiflu. The patient is agreeable with this plan. - Diagnoses Provider Diagnoses: Influenza A Discharge - Discharge Plan Condition: Stable Disposition: HOME Referrals: Ernst Terry MD [Primary Care Provider] - Additional Instructions: RETURN TO EMERGENCY DEPARTMENT FOR ANY NEW OR WORSENING SYMPTOMS The documentation as recorded by the Angel olguin Gabriel accurately reflects the service I personally performed and the decisions made by me, Isabella Guerrero MD.
[2017-08-17 01:25] VITALS: BP 99/68
--- NOTE | 2017-08-17 07:33 | RAD ---
INDICATION: Cough. COMPARISON: Comparison is made with prior studies from December 21, 2016. TECHNIQUE: Dual-energy PA and lateral views of the chest were obtained. FINDINGS: The heart is within normal limits in size. Mediastinal and hilar contours appear within normal limits. The lungs are underinflated and clear. No pleural effusion is seen. IMPRESSION: NO EVIDENCE FOR ACTIVE CARDIOPULMONARY DISEASE.
== END 2017-08-17 01:24 | disposition home or self-care (01) ==
LOC: ED 18:31
DX: J09.X2 Influenza due to identified novel influenza A virus with other respiratory manifestations (principal); R07.9 Chest pain, unspecified; Z79.01 Long term (current) use of anticoagulants; R50.9 Fever, unspecified; R06.02 Shortness of breath; R05 Cough; Z87.891 Personal history of nicotine dependence
CPT/HCPCS: 71046; 87502; 94640; 99283; A9270-GY; J7512

== ENCOUNTER 2017-11-14 10:09 | Day surgery (SDC) | payer MEDICARE, BC ==
[~2017-11-14 10:09] MED LIST: Buffered Lidocaine 0.9% SYRIN* 5 ML/SYR SYRINGE INTRADERM ONE; DiMENhydriNATE IV* 50 MG/ML VIAL IV PUSH PRN; Famotidine IV* 10 MG/ML 2 ML (20 mg) IV ONE; HYDROmorphone INJ* 1 MG/ML CARPUJECT SYRINGE IV PRN; Naloxone* 0.4 MG/ML 1 ML VIAL IV PRN; fentaNYL* 50 MCG/ML 2 ML VIAL (100 MCG VIAL) IV PRN; oxyCODONE/Acetamin 5/325 MG* TAB PO PRN
[2017-11-14] MEDS ORDERED: Famotidine IV* 10 MG/ML 2 ML (20 mg) ONE (10:25)
[2017-11-14] MEDS ORDERED: ceFAZolin 2 GM PREMIX (*) 2 GM/50 ML BAG IVPB ONE (10:25)
[2017-11-14] MEDS ORDERED: fentaNYL* 50 MCG/ML 2 ML VIAL (100 MCG VIAL) ONE (10:55)
[2017-11-14] MEDS ORDERED: Midazolam* 1 MG/ML 5 ML VIAL (5 MG) ONE (10:55)
[2017-11-14] MEDS ORDERED: Bupivacaine 0.25% SDV* 30 ML ONE (11:17)
[2017-11-14] MEDS ORDERED: Ondansetron INJ* 2 MG/ML VIAL ONE (11:58)
[2017-11-14] MEDS ORDERED: Propofol* 10 MG/ML 20 ML BTL IV PUSH ONE (11:58)
[2017-11-14] MEDS ORDERED: Lidocaine 2% PF * 5 ML VIAL ONE (11:58)
[2017-11-14 15:18] VITALS: BP 125/62
--- NOTE | 2017-11-15 11:39 | OP ---
DATE OF OPERATION: 11/14/17 - [facility] DATE OF : 40 SURGEON: Fito Tee MD SAW HANDLE ASSEMBLER: WINSTON Patel ANESTHESIOLOGIST: Dr. Bae ANESTHESIA: Local MAC. PRE-OP DIAGNOSIS: Left carpal tunnel syndrome. POST-OP DIAGNOSIS: Left carpal tunnel syndrome. OPERATIVE PROCEDURE: Left open carpal tunnel release. INDICATIONS: Dana is 77. She does have psoriatic arthritis and has some deformity related to that; however, biggest complaint is radiating pain into the index and middle fingers and the thumb associated with intermittent numbness and tingling. I had talked to her about her treatment options. We did recommend a carpal tunnel release as she did have [id number] carpal tunnel syndrome on her electrodiagnostic studies. ESTIMATED BLOOD LOSS: 2 mL. COMPLICATIONS: None. FINDINGS: As expected. DESCRIPTION OF PROCEDURE: Dana was seen in the preoperative area. The correct side, site, and procedure were identified. We came back to the operating room. The arm was prepped and draped in the usual fashion. A time- out was performed. I began by making a longitudinal 2 to 3 cm incision in the standard location for an open carpal tunnel release. Dissection was carried down through the subcutaneous tissue and palmar fascia. This was retracted away and the transverse carpal ligament was released just off the radial aspect of the hook of the hamate. The release was completed from distal to proximal. When I got proximal, I released the fascia and subcutaneous tissue and retracted this volarly and ulnarly. I then released the remainder of the transverse carpal ligament and distal antebrachial fascia with a tenotomy scissors under direct visualization. The release was checked proximally and distally. There was absolutely no compression on the nerve. We irrigated out the wound. Skin was closed with 4-0 nylon suture. Wound was dressed with Xeroform, 4x4s, sterile Webril, and an Souleymane bandage. She was taken to the recovery room in stable condition. [id number]/[facility] #: [id number] [facility]ENTER[facility]urelia
== END 2017-11-14 15:29 | disposition home or self-care (01) ==
LOC: OR 10:09
PROVIDERS: ATTEND Orthopaedic Surgery Hand Surgery
DX: G56.02 Carpal tunnel syndrome, left upper limb (principal); I48.91 Unspecified atrial fibrillation; Z79.01 Long term (current) use of anticoagulants; I35.0 Nonrheumatic aortic (valve) stenosis; I10 Essential (primary) hypertension; J41.0 Simple chronic bronchitis; Z87.891 Personal history of nicotine dependence; E03.9 Hypothyroidism, unspecified; G47.31 Primary central sleep apnea; L40.50 Arthropathic psoriasis, unspecified
CPT/HCPCS: J0690; J2250; J2405; J2704; J3010

== ENCOUNTER 2018-02-20 08:23 | Inpatient (IN) | payer MEDICARE, BC ==
[2018-02-20 09:19] LABS: ABS Basophils 0 10^3/ul (0-0.2); ABS Eosinophils 0.2 10^3/ul (0-0.6); ABS Monocytes 0.3 10^3/ul (0-0.8); ABS Neutrophils 1.7 10^3/ul (1.5-7.7); ABS Nucleated RBC 0 10^3/ul; Eosinophil % 7.1 % (0-6); Hematocrit 36 % (35-47); Hemoglobin 12.4 g/dl (12.0-16.0); Lymphocyte % 30.4 % (25-47); Mean Corpuscular HGB Conc 35 g/dl (31-36); Mean Corpuscular Hemoglobin 31 pg (27-31); Mean Corpuscular Volume 89 fL (80-97); Nucleated Red Blood Cells % 0.1; Platelet Count 192 10^3/ul (150-450); Red Blood Count 4.02 10^6/ul (4.00-5.40); Red Cell Distribution Width 14 % (10.5-15); White Blood Count 3.3 10^3/ul (3.5-10.8)
[2018-02-20 09:36] LABS: EGFR Non-African American 131.7 (>60)
[2018-02-20] MEDS ORDERED: Acetaminophen TAB* 325 MG PO PRN (10:58)
[2018-02-20] MEDS ORDERED: Albuterol 2.5 MG/3 ML NEB.SOL* (0.083%) INH PRN (10:58)
[2018-02-20] MEDS ORDERED: Al Hydrox/Mg Hydrox/Simet LIQ* 30 ML UDC PO PRN (10:58)
[2018-02-20 11:05] LABS: Urine Appearance Clear; Urine Blood Negative (Negative); Urine Color Yellow; Urine Ketones Negative (Negative); Urine Protein Negative (Negative); Urine Specific Gravity 1.012 (1.010-1.030); Urine Urobilinogen Negative (Negative)
[2018-02-20] MEDS ORDERED: HYDROmorphone TAB* 4 MG PO PRN ×2 (11:09)
[2018-02-20] MEDS ORDERED: Mometasone/Formoter 100/5 MDI INH PRN (11:09)
[2018-02-20] MEDS ORDERED: Albuterol HFA INHALER* 8 gm MDI INH PRN (11:09)
[2018-02-20] MEDS: HYDROmorphone TAB* 4 MG PO SCH ×3 (12:42→20:56)
--- NOTE | 2018-02-20 14:13 | HP ---
AMENDED REPORT NOW INCLUDES COSIGNER DESIGNATION - ESIGNED BEFORE ADJUSTMENT ATTENDING ADDENDUM NOW INCLUDED ON THIS REPORT CC: Dr. Ernst Terry * ADMISSION HISTORY AND PHYSICAL: DATE OF ADMISSION: 02/20/18 ATTENDING HOSPITALIST: Anthony Ayala MD * (DICTATED BY WINSTON HU) PRIMARY CARE PHYSICIAN: Ernst Terry MD CHIEF COMPLAINT: 1. Suicidal ideation. 2. Chronic pain. 3. Hyponatremia. HISTORY OF PRESENT ILLNESS: Mrs. Gusman is a 77-year-old female, who carries multiple complicated medical issues including hypertension; atrial fibrillation , for which she has been chronically on Eliquis; history of chronic pain secondary to psoriatic arthritis; depression; hypothyroidism as well as history of breast cancer. She presented to the emergency room earlier this morning with complaints of severe depression and suicidal ideation. She notes "that she has had enough with her chronic pain and multiple medical problems and she would like to put an end to it." She was evaluated in the emergency room and had baseline laboratory workup that revealed severe hyponatremia with sodium of 121, which appears to be significantly lower than her last sodium checked back in early January with value of 134. She was also noted to have serum alcohol of 173 and reports that she had a whole bottle of wine late last night since she was not feeling well and also to attempt to go to sleep and never wake up. She has multiple medical issues that have been evaluated by multiple provider in the past, most recently history of aortic valve stenosis, for which she had an aortic valve replacement recently in [place]. She also has a longstanding history of depressive episodes and she notes that she was seen in the remote past by a psychiatric doctor; however, she denies any use of anxiolytic recently. Given her laboratory findings, we were asked to see the patient for further evaluation of hyponatremia and to consider admission to correct her electrolytes as well as to evaluate her depression obtaining psychiatric evaluation. PAST MEDICAL HISTORY: Includes: 1. Hypertension. 2. Atrial fibrillation, for which she has been on Eliquis. 3. History of psoriatic arthritis. 4. Hypothyroidism. 5. Depression. 6. History of chronic headaches with apparently some benign cysts on her spine , for which she has been seen by a Neurology group in [facility]. 7. History of staph infection with MRSA in the past. Has been seen by Dr. MacQueen as well. 8. Hyperlipidemia. 9. Chronic pain. 10. GERD. 11. Congestive heart failure. PAST SURGICAL HISTORY: Significant for: 1. Carpal tunnel release back in 2016. 2. Right total knee replacement in 1997. 3. Left total knee replacement in April of 2007. 4. Ankle surgery on the left side with foot reconstruction secondary to accident. 5. Back surgery, multiple, including 8 surgeries at different periods of time, for which the patient has been disabled; however, she ambulates using a cane and has been chronically on the narcotics for pain control. 6. Right elbow replacement with 2 reconstruction surgeries, most recently in 2012. 7. Right third finger straightened. 8. Right lumpectomy with sentinel node back in January of 2012 and the patient has been on remission since then. 9. She also had cardiac catheterization with no stents placements back in April of 2009. CURRENT MEDICATIONS: Multiple includin. Albuterol and Ventolin inhaler 2 puffs MDI q.4 hours as needed for shortness of breath. 2. Eliquis 5 mg p.o. b.i.d. 3. Vitamin D tablets 2000 units p.o. daily. 4. Vitamin B12 1000 mcg p.o. daily. 5. Docusate sodium 250 mg p.o. q.a.m. 6. Tikosyn 500 mcg p.o. b.i.d. 7. Neurontin 400 mg p.o. q.p.m. 8. Neurontin 600 mg p.o. q.a.m. 9. Hydralazine 10 mg p.o. b.i.d. 10. Hydromorphone extended release 12 mg p.o. b.i.d. 11. Dilaudid 8 mg p.o. q.p.m. as needed for pain. 12. Dilaudid 12 mg p.o. q.a.m. as needed for pain. 13. Plaquenil 200 mg p.o. b.i.d. 14. Probiotic 1 tablet p.o. b.i.d. 15. Synthroid 137 mcg p.o. daily. 16. Dulera 100/5 MDI 2 puffs inhaled b.i.d. 17. Singulair 10 mg p.o. daily. 18. Multivitamin with minerals 1 tablet p.o. daily. 19. Zantac 300 mg p.o. daily. 20. Bactrim 400/80 one tablet q.p.m. 21. Micardis 40 mg p.o. daily. ALLERGIES: Multiple again including CELECOXIB, METHOTREXATE, VANCOMYCIN, CHLORHEXIDINE and ADHESIVE. FAMILY HISTORY: Mother with stroke at age 72 as well as history of heart attack and history of breast cancer in the paternal grandmother as well. SOCIAL HISTORY: The patient lives with her spouse, Mg, who is also the healthcare proxy carrier and second line is her daughter, Xin. 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 She is a former smoker, who smoked 5 cigarettes a day for 15 year and quit back in 1984. She denies alcohol use on a regular basis; however, she consumed a bottle of wine last night due to a severe depression and suicidal ideation. She wishes to be DNR and will await updating MOLST form. REVIEW OF SYSTEMS: See HPI. Otherwise, 14-point review of systems were evaluated and essentially otherwise negative. PHYSICAL EXAMINATION GENERAL: She is an older female, appears depressed, but responds to question appropriately and in no acute distress or discomfort at the time of admission. VITAL SIGNS: Revealed temperature of 98.1, pulse of 68, respirations of 17, blood pressure of 140/50, and O2 sat of 96% on room air. HEENT: Head is normocephalic, atraumatic. Sclerae are anicteric. PERRLA. EOMs intact. Oropharynx is pink and moist. NECK: Supple. Trachea midline. No cervical adenopathy, thyromegaly or JVD. LUNGS: Clear to auscultation bilaterally. HEART: Regular rate and rhythm. There is a loud harsh systolic murmur noted, but no gallops or rubs. BACK: With normal curvature. No CVA tenderness. ABDOMEN: Soft, nontender and nondistended. No hernias, masses or hepatosplenomegaly. BREAST: Exam deferred at this time. EXTREMITIES: Without cyanosis or clubbing. There is 2+ bilateral lower extremity edema noted. NEUROLOGIC: She is awake, alert and oriented x4. Her mood is somehow flat and appears depressed, but again in no acute distress or discomfort and does not show any suicidal ideation at this time. RECTAL: Exam deferred at this time. LABORATORY WORKUP: Her CBC with white count of 3,300, hemoglobin 12.4, hematocrit of 36 and platelets of 192. Chemistry with sodium 121, potassium 4.4 , chloride 86, CO2 of 22, BUN is 10 and creatinine of 0.4. LFTs and TSH within normal limits. Her urine essentially negative. Toxicology screen with positive opiates and serum alcohol of 173. ACCESSORY DIAGNOSTIC DATA: None. IMPRESSION: A 77-year-old female with multiple medical problems including hypertension, chronic atrial fibrillation and recently diagnosed with congestive heart failure, who also has history of longstanding chronic pains and psoriatic arthritis, who presented with severe depression, suicidal ideation and found to have severe hyponatremia and for which she will be admitted for: Hyponatremia. The patient will be admitted to the medical floor. It is unclear if it is related to hypervolemia or euvolemic hyponatremia. We will check her urine osmolarity, sodium and creatinine as well as serum osmolarity. We will give her 500 a day cc of normal saline for the time being; however, we will repeat her BMP after which to see if there are any changes in her sodium. She appears to be clinically stable at this point. ASSESSMENT AND PLAN: 1. Suicidal ideation. The patient has longstanding history of severe depression and current medication list does not show any anxiolytic use or benzodiazepines. I suspect this is related to her chronic pain, which has been well managed; however, we will obtain Psychiatric evaluation to determine if any behavioral health changes need to be made. Call was made to [facility] and they will await the consult later today and for the time being, we will keep her on one-to-one observation every shift while she is admitted. 2. Hypertension. We will keep her on her home meds. 3. Chronic back pain. We will keep on her narcotics including Dilaudid extended release as well Percocet as needed for breakthrough pain. 4. Hypothyroidism. We will continue her Synthroid. 5. History of asthma. We will continue her inhalers as needed. 6. Psoriatic arthritis with chronic pain. I will provide supportive care and symptomatic management. 7. DVT prophylaxis. The patient is high risk given her history of malignancy and her age. We will use sequential stockings as well as Eliquis, which she has been on. 8. Code status. She wishes to be a DNR and we will update MOLST form. TIME SPENT: Approximately 60 minutes were spent admitting this patient with greater than 50% on taking history and performing physical exam. I have discussed the case with my attending, Dr. Ayala, who agreed to plans and we will follow her up accordingly. WINSTON HU ADDENDUM: PRIMARY CARE PROVIDER: Dr. Ernst Terry. The case was reviewed and discussed with Sheri Yost, physician neurosurgical physician assistant. HISTORY OF PRESENT ILLNESS: Ms. Gusman is a 77-year-old lady with a past medical history of hypertension, atrial fibrillation, psoriatic arthritis, hypothyroidism, depression, headaches, hyperlipidemia, chronic pain, GERD, CHF, who presented to the emergency room as a 9.41 for suicidal ideation. The patient says that she has had enough of her chronic pain and is ready to put an end to it. She drank a bottle of wine yesterday and had an alcohol level of 173. She was also found to have a sodium of 121 from last sodium in January of . The patient has had hyponatremia in the past with a sodium of 127, but not as low as a sodium of 121. She will be admitted for further management. We are going to check serum and urine osmolality, urine sodium, and creatinine. The patient appears to be euvolemic, so this could be SIADH. Although she states that this alcohol consumption was an isolated event, I note that she had an alcohol level of 221 in January 2017 and 277 in June 2016. The patient also wishes to be a do not resuscitate. It is unclear to me if a suicidal patient can be a DNR. She does have a MOLST form in our system from January 2017, where she wished to be DNR, have limited medical interventions, do not intubate, send to the hospice if necessary, no feeding tube, trial period of IV fluids, and use antibiotics. I am waiting the mental health evaluation to determine the patient's capacity, but I believe if there is any doubt on ethics, a consult could be obtained. The assessment and plan was discussed with the physician neurosurgical physician assistant and we will monitor her sodium every 4 hours. ANTHONY Ayala MD [id number]/CPS #: [id number]/CPS #: [id number] NISHA
[2018-02-20] MEDS: oxyCODONE/Acetamin 5/325 MG* TAB PO PRN ×2 (14:26→19:49)
[2018-02-20 16:58] LABS: EGFR Non-African American 125.4 (>60)
[2018-02-20] MEDS ORDERED: DULoxetine DR CAP* 20 MG CAP.DR PO SCH (17:00)
[2018-02-20] MEDS: Gabapentin CAP(*) 400 MG PO SCH (17:02)
[2018-02-20] MEDS: Losartan TAB* 25 MG PO SCH (17:03)
[2018-02-20] MEDS: Famotidine TAB* 20 MG PO SCH (17:03)
--- NOTE | 2018-02-20 17:46 | ED ---
Taurus Beck Angela, scribed for Kartik Lloyd MD on 02/20/18 at 0844 . Psychiatric Complaint - HPI Summary HPI Summary: This pt is a 77 y/o female, accompanied by daughter, presenting to [facility] c/o depression and SI recently. Pt reports she wants to stop taking her medications and "let things happen to me." She states she has a cardiac hx and is tired of taking her medications. Pt notes "I have been a problem to everyone for so long , I'm done." Denies suicidal attempt. Pt spoke to her in [place] earlier who then called her daughter about pt's plan. She has felt like this a couple of years ago and states somehow got through it. Pt did drink a bottle of wine last night. - History Of Current Complaint Time Seen by Provider: 02/20/18 08:34 Hx Obtained From: Patient Onset/Duration: Lasting Days, Still Present Timing: Days Severity Currently: Severe Character: Depressed Aggravating Factor(s): Nothing Alleviating Factor(s): Nothing Associated Signs And Symptoms: Positive: Confused Has Suicidal: Reports: Thoughts, With A Plan Has Homicidal: Denies: Thoughts, With A Plan - Allergies/Home Medications Allergies/Adverse Reactions: Allergies Allergy/AdvReac Type Severity Reaction Status Date / Time celecoxib [From Celebrex] Allergy Rash Verified 02/20/18 08:59 methotrexate Allergy See Comment Verified 02/20/18 08:59 vancomycin Allergy See Comment Verified 02/20/18 08:59 CHLORAHEXADINE Allergy PRE SURG Uncoded 02/20/18 08:59 SCRUB - BRIGHT RED RASH adhesives AdvReac Intermediate Rash Uncoded 02/20/18 08:59 PMH/Surg Hx/FS Hx/Imm Hx Endocrine/Hematology History: Reports: Hx Anticoagulant Therapy - eliquis, Hx Thyroid Disease - hypothyroidism Denies: Hx Blood Disorders, Hx Blood Transfusions, Hx Bone Marrow Disease, Hx Diabetes, Hx Systemic Lupus Erythematosus, Hx Sickle Cell Disease, Hx Anemia , Hx Unexplained Bleeding, Other Endocrine/Hematological Disorders Cardiovascular History: Reports: Hx Atrial Fibrillation - on blood thinner, Hx Hypercholesterolemia, Hx Hypertension, Hx Valvular Heart Disease - Aortic Valve disease, Other Cardiovascular Problems/Disorders - ON BLOOD THINNER MEDICATION PER Denies: Hx Aneurysm, Hx Angina, Hx Angioplasty, Hx Auto Implanted Cardiovert Defib, Hx Cardiac Arrest, Hx Cardiomegaly, Hx Congenital Heart Disease, Hx Congestive Heart Failure, Hx Coronary Artery Disease, Hx Deep Vein Thrombosis, Hx Embolism, Hx Hypotension, Hx Pacemaker/ICD, Hx Peripheral Vascular Disease, Hx Rheumatic Fever, Hx Syncope Respiratory History: Reports: Hx Sleep Apnea, Other Respiratory Problems/ Disorders - Pulmonary HTN Denies: Hx Asthma, Hx Chronic Bronchitis, Hx Chronic Obstructive Pulmonary Disease (COPD) - with chronic bronchitis, Hx Cystic Fibrosis, Hx Lung Cancer, Hx Pleural Effusion, Hx Pneumonia, Hx Pulmonary Edema, Hx Pulmonary Embolism, Hx Seasonal Allergies GI History: Reports: Hx Gastroesophageal Reflux Disease, Hx Ulcer - gerd, Other GI Disorders - CONSTIPATION- DIET CONTROLLED Denies: Hx Cirrhosis, Hx Crohn's Disease, Hx Diverticulosis, Hx Gall Bladder Disease, Hx Gastrointestinal Bleed, Hx Hiatal Hernia, Hx Irritable Bowel, Hx Jaundice, Hx Obstructive Bowel, Hx Ileostomy, Hx Pyloric Stenosis History: Denies: Hx Dialysis, Hx Renal Disease Musculoskeletal History: Reports: Hx Arthritis, Hx Back Problems, Hx Orthopedic Injury - Right arm reconstruction r/t traumatic injury, Other Musculoskeletal History - Left Fibula Fracture 08/03/16, psoriatic arthritis Denies: Hx Bursitis, Hx Congenital Bone Abnormalities, Hx Fibromyalgia, Hx Gout, Hx Osteoporosis, Hx Scoliosis, Hx Tendonitis Sensory History: Reports: Hx Cataracts, Hx Contacts or Glasses Denies: Hx Eye Injury, Hx Eye Prosthesis, Hx Glaucoma, Hx Legally Blind, Hx Macular Degeneration, Hx Vision Problem, Hx Deafness, Hx Hearing Aid, Hx Hearing Problem, Other Sensory Impairments Opthamlomology History: Reports: Hx Cataracts, Hx Contacts or Glasses Denies: Hx Eye Injury, Hx Eye Prosthesis, Hx Glaucoma, Hx Legally Blind, Hx Macular Degeneration, Hx Vision Problem, Other Sensory Impairments Neurological History: Denies: Hx CVA, Other Neuro Impairments/Disorders - spinal cord deformities Psychiatric History: Reports: Hx Depression, Hx Suicide Attempt, Hx Substance Abuse - EtOH Denies: Hx Anxiety, Hx Attention Deficit Hyperactivity Disorder, Hx Eating Disorder, Hx Panic Disorder, Hx Post Traumatic Stress Disorder, Hx Inpatient Treatment, Hx Community Mental Health Tx, Hx Schizophrenia, Hx Bipolar Disorder , Hx of Violent Episodes Against Others, Other Psychiatric Issues/Disorders - Cancer History Cancer Type, Location and Year: RIGHT BREAST-previous radiation ? 2013 NO TREATMENT AT THIS TIME Hx Chemotherapy: No Hx Radiation Therapy: Yes Hx Palliative Cancer Treatment: No - Surgical History Surgery Procedure, Year, and Place: CATARACTS. LT FOOT - REPAIR - RECON W/ METAL. LUMBAR - DISCETOMY, HERNIATION. NON- MALIGNANT TUMOR REMOVED from spine. REN KNEE REPLACEMENTS (1999 & 2009). Rt ELBOW - ARTIFICIAL JOINT AND METAL PLATE ABOVE JOINT. TONSILECTOMY. APPENDECTOMY. OVARIAN CYST REMOVED - REN. Rt MASTECTOMY- W/ RADIATION. LEFT ANKLE x2 (has hardware),tubal Hx Anesthesia Reactions: No - Immunization History Date of Tetanus Vaccine: unknown Date of Influenza Vaccine: unknown Infectious Disease History: Reports: Hx of Known/Suspected MRSA - right elbow, 2013 Denies: Hx Clostridium Difficile, Hx Hepatitis, Hx Human Immunodeficiency Virus (HIV), Hx Shingles, Hx Tuberculosis, Hx Known/Suspected VRE, Hx Known/ Suspected VRSA, History Other Infectious Disease, Traveled Outside the [place] in Last 30 Days - Family History Known Family History: Positive: Other - Breast CA - Social History Alcohol Use: Daily Substance Use Type: Reports: None Substance Use Comment - Amount & Last Used: DILAUDID Hx Tobacco Use: Yes Smoking Status (MU): Former Smoker Type: Cigarettes Amount Used/How Often: 5 a day Length of Time of Smoking/Using Tobacco: 15 yrs Have You Smoked in the Last Year: No Review of Systems Negative: Fever, Chills Cardiovascular: Negative Respiratory: Negative Gastrointestinal: Negative Genitourinary: Negative Psychological: Other - SI thoughts and plan Positive: Depressed. Negative: Other - HI thoughts/plan All Other Systems Reviewed And Are Negative: Yes Physical Exam - Summary Physical Exam Summary: Appearance: The patient is well-nourished in no acute distress and in no acute pain. Skin: The skin is warm and dry and skin color reflects adequate perfusion. HEENT: The head is normocephalic and atraumatic. The pupils are equal and reactive. The conjunctivae are clear and without drainage. Nares are patent and without drainage. Mouth reveals moist mucous membranes and the throat is without erythema and exudate. The external ears are intact. The ear canals are patent and without drainage. The tympanic membranes are intact. Neck: the neck is supple with full range of motion and non-tender. There are no carotid bruits. There is no neck vein distension. Respiratory: Chest is non-tender. Lungs are clear to auscultation and breath sounds are symmetrical and equal. Cardiovascular: Heart is regular rate and rhythm. There is no murmur or rub auscultated. There is no peripheral edema and pulses are symmetrical and equal. Abdomen: The abdomen is soft and non-tender. There are normal bowel sounds heard in all four quadrants and there is no organomegaly palpated. Musculoskeletal: There is no back tenderness noted. Extremities are non-tender with full range of motion. There is good capillary refill. There is no peripheral edema or calf tenderness elicited. Neurological: Patient is alert and oriented to person, place and time. Psychiatric: The patient has an appropriate affect and does not exhibit any anxiety or depression. Triage Information Reviewed: Yes Vital Signs On Initial Exam: Initial Vitals Temp Pulse Resp BP Pulse Ox 98.1 F 68 17 140/50 96 02/20/18 08:45 02/20/18 08:45 02/20/18 08:45 02/20/18 08:45 02/20/18 08:45 Vital Signs Reviewed: Yes Diagnostics - Vital Signs Vital Signs Temp Pulse Resp BP Pulse Ox 02/20/18 08:45 98.1 F 68 17 140/50 96 - Laboratory Lab Results: Lab Results 02/20/18 02/20/18 02/20/18 Range/Units 09:07 09:07 10:41 WBC 3.3 L (3.5-10.8) 10^3/ul RBC 4.02 (4.00-5.40) 10^6/ul Hgb 12.4 (12.0-16.0) g/dl Hct 36 (35-47) % MCV 89 (80-97) fL MCH 31 (27-31) pg MCHC 35 (31-36) g/dl RDW 14 (10.5-15) % Plt Count 192 (150-450) 10^3/ul MPV 7.0 L (7.4-10.4) um3 Neut % (Auto) 52.5 (38-83) % Lymph % (Auto) 30.4 (25-47) % Young % (Auto) 8.8 H (0-7) % Eos % (Auto) 7.1 H (0-6) % Baso % (Auto) 1.2 (0-2) % Absolute Neuts (auto) 1.7 (1.5-7.7) 10^3/ul Absolute Lymphs (auto) 1.0 (1.0-4.8) 10^3/ul Absolute Monos (auto) 0.3 (0-0.8) 10^3/ul Absolute Eos (auto) 0.2 (0-0.6) 10^3/ul Absolute Basos (auto) 0 (0-0.2) 10^3/ul Absolute Nucleated RBC 0 10^3/ul Nucleated RBC % 0.1 Sodium 121 L (135-145) mmol/L Potassium 4.4 (3.5-5.0) mmol/L Chloride 86 L (101-111) mmol/L Carbon Dioxide 22 (22-32) mmol/L Anion Gap 13 H (2-11) mmol/L BUN 10 (6-24) mg/dL Creatinine 0.46 L (0.51-0.95) mg/dL Est GFR ( Amer) 159.4 (>60) Est GFR (Non-Af Amer) 131.7 (>60) BUN/Creatinine Ratio 21.7 H (8-20) Glucose 85 (70-100) mg/dL Calcium 8.6 (8.6-10.3) mg/dL Total Bilirubin 0.50 (0.2-1.0) mg/dL AST 33 (13-39) U/L ALT 17 (7-52) U/L Alkaline Phosphatase 93 (34-104) U/L Total Protein 6.3 L (6.4-8.9) g/dL Albumin 4.1 (3.2-5.2) g/dL Globulin 2.2 (2-4) g/dL Albumin/Globulin Ratio 1.9 (1-3) TSH 3.54 (0.34-5.60) mcIU/mL Urine Color Yellow Urine Appearance Clear Urine pH 5.0 (5-9) Ur Specific [place] 1.012 (1.010-1.030) Urine Protein Negative (Negative) Urine Ketones Negative (Negative) Urine Blood Negative (Negative) Urine Nitrate Negative (Negative) Urine Bilirubin Negative (Negative) Urine Urobilinogen Negative (Negative) Ur Leukocyte Esterase Negative (Negative) Urine Glucose Negative (Negative) Salicylates < 2.50 (<30) mg/dL Urine Opiates Screen (None Detect) Acetaminophen < 15 mcg/mL Ur Barbiturates Screen (None Detect) Ur Phencyclidine Scrn (None Detect) Ur Amphetamines Screen (None Detect) U Benzodiazepines Scrn (None Detect) Urine Cocaine Screen (None Detect) U Cannabinoids Screen (None Detect) Serum Alcohol 173 H (<10) mg/dL 02/20/18 Range/Units 10:41 WBC (3.5-10.8) 10^3/ul RBC (4.00-5.40) 10^6/ul Hgb (12.0-16.0) g/dl Hct (35-47) % MCV (80-97) fL MCH (27-31) pg MCHC (31-36) g/dl RDW (10.5-15) % Plt Count (150-450) 10^3/ul MPV (7.4-10.4) um3 Neut % (Auto) (38-83) % Lymph % (Auto) (25-47) % Young % (Auto) (0-7) % Eos % (Auto) (0-6) % Baso % (Auto) (0-2) % Absolute Neuts (auto) (1.5-7.7) 10^3/ul Absolute Lymphs (auto) (1.0-4.8) 10^3/ul Absolute Monos (auto) (0-0.8) 10^3/ul Absolute Eos (auto) (0-0.6) 10^3/ul Absolute Basos (auto) (0-0.2) 10^3/ul Absolute Nucleated RBC 10^3/ul Nucleated RBC % Sodium (135-145) mmol/L Potassium (3.5-5.0) mmol/L Chloride (101-111) mmol/L Carbon Dioxide (22-32) mmol/L Anion Gap (2-11) mmol/L BUN (6-24) mg/dL Creatinine (0.51-0.95) mg/dL Est GFR ( Amer) (>60) Est GFR (Non-Af Amer) (>60) BUN/Creatinine Ratio (8-20) Glucose (70-100) mg/dL Calcium (8.6-10.3) mg/dL Total Bilirubin (0.2-1.0) mg/dL AST (13-39) U/L ALT (7-52) U/L Alkaline Phosphatase (34-104) U/L Total Protein (6.4-8.9) g/dL Albumin (3.2-5.2) g/dL Globulin (2-4) g/dL Albumin/Globulin Ratio (1-3) TSH (0.34-5.60) mcIU/mL Urine Color Urine Appearance Urine pH (5-9) Ur Specific [place] (1.010-1.030) Urine Protein (Negative) Urine Ketones (Negative) Urine Blood (Negative) Urine Nitrate (Negative) Urine Bilirubin (Negative) Urine Urobilinogen (Negative) Ur Leukocyte Esterase (Negative) Urine Glucose (Negative) Salicylates (<30) mg/dL Urine Opiates Screen Presumptive positive A (None Detect) Acetaminophen mcg/mL Ur Barbiturates Screen None detected (None Detect) Ur Phencyclidine Scrn None detected (None Detect) Ur Amphetamines Screen None detected (None Detect) U Benzodiazepines Scrn None detected (None Detect) Urine Cocaine Screen None detected (None Detect) U Cannabinoids Screen None detected (None Detect) Serum Alcohol (<10) mg/dL Result Diagrams: 02/20/18 09:07 02/20/18 16:20 Lab Statement: Any lab studies that have been ordered have been reviewed, and results considered in the medical decision making process. Course/Dx - Course Course Of Treatment: Ms. Gusman presents to the emergency department accompanied by her daughter with a chief complaint of depression and suicidal ideation. During her medical workup she was found to be quite hyponatremic and the hospitalist service was asked to consult on her for medical clearance. - Differential Dx/Clinical Impression Provider Diagnosis: Hyponatremia - Physician Notifications Discussed Care Of Patient With: Ana Martin Time Discussed With Above Provider: 10:20 Instructed by Provider To: Other - I discussed pt care with Dr. Martin, hospitalist, who accepted the pt for admission. Discharge - Sign-Out/Discharge Documenting (check all that apply): Discharge/Admit/Transfer - Admit - Discharge Plan Condition: Stable Disposition: ADMITTED TO [facility] - Billing Disposition and Condition Condition: STABLE Disposition: Admitted to [facility] The documentation as recorded by the Taurus olguin Angela accurately reflects the service I personally performed and the decisions made by , Kartik Lloyd MD.
[2018-02-20] MEDS: NS 0.9% 500 ML* 500 ML IV SCH ×2 (19:00→23:12)
[2018-02-20] MEDS: Sodium Chloride TAB* 1 GM PO SCH (19:48)
[2018-02-20] MEDS: Apixaban* 5 MG TAB PO SCH (19:49)
[2018-02-20] MEDS: Hydroxychloroquine TAB* 200 MG PO SCH (19:49)
[2018-02-20] MEDS: Docusate CAP* 100 MG PO SCH (19:50)
[2018-02-20] MEDS: hydrALAZINE TAB* 10 MG PO SCH (19:50)
[2018-02-20 19:56] LABS: EGFR Non-African American 116.9 (>60)
[2018-02-20] MEDS: Dofetilide CAP* 500 MCG PO SCH (20:56)
--- NOTE | 2018-02-20 21:42 | HP ---
CC: Dr. Ernst Terry HISTORY AND PHYSICAL: ADDENDUM: PRIMARY CARE PROVIDER: Dr. Ernst Terry. The case was reviewed and discussed with Sheri Yost, physician lpn medical assistant. HISTORY OF PRESENT ILLNESS: Ms. Gusman is a 77-year-old lady with a past medical history of hypertension, atrial fibrillation, psoriatic arthritis, hypothyroidism, depression, headaches, hyperlipidemia, chronic pain, GERD, CHF, who presented to the emergency room as a 9.41 for suicidal ideation. The patient says that she has had enough of her chronic pain and is ready to put an end to it. She drank a bottle of wine yesterday and had an alcohol level of 173. She was also found to have a sodium of 121 from last sodium in January of . The patient has had hyponatremia in the past with a sodium of 127, but not as low as a sodium of 121. She will be admitted for further management. We are going to check serum and urine osmolality, urine sodium, and creatinine. The patient appears to be euvolemic, so this could be SIADH. Although she states that this alcohol consumption was an isolated event, I note that she had an alcohol level of 221 in January 2017 and 277 in June 2016. The patient also wishes to be a do not resuscitate. It is unclear to me if a suicidal patient can be a DNR. She does have a MOLST form in our system from January 2017, where she wished to be DNR, have limited medical interventions, do not intubate, send to the hospice if necessary, no feeding tube, trial period of IV fluids, and use antibiotics. I am waiting the mental health evaluation to determine the patient's capacity, but I believe if there is any doubt on ethics, a consult could be obtained. The assessment and plan was discussed with the physician lpn medical assistant and we will monitor her sodium every 4 hours. [id number]/[facility] #: [id number] NISHA
[2018-02-21] MEDS ORDERED: Morphine VIAL* 4 MG/ML VIAL (1 ml vial) IV ONE (00:03)
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
[2018-02-21 01:04] LABS: EGFR Non-African American 122.5 (>60)
[2018-02-21] MEDS: HYDROmorphone TAB* 4 MG PO SCH ×6 (02:11→21:29)
[2018-02-21 04:25] LABS: EGFR Non-African American 146.3 (>60)
[2018-02-21] MEDS: oxyCODONE/Acetamin 5/325 MG* TAB PO PRN ×4 (04:38→23:41)
[2018-02-21] MEDS: Levothyroxine TAB* 137 MCG TAB PO SCH (06:02)
[2018-02-21] MEDS ORDERED: NS 0.9% 1000 ML* 1,000 ML IV SCH (07:45)
[2018-02-21] MEDS: hydrALAZINE TAB* 10 MG PO SCH ×2 (08:35→21:28)
[2018-02-21] MEDS: Montelukast Sodium TAB* 10 MG PO SCH (08:36)
[2018-02-21] MEDS: Dofetilide CAP* 500 MCG PO SCH ×2 (08:36→21:28)
[2018-02-21] MEDS: Apixaban* 5 MG TAB PO SCH ×2 (08:36→21:28)
[2018-02-21] MEDS: Gabapentin CAP(*) 300 MG PO SCH (08:37)
[2018-02-21] MEDS: Docusate CAP* 100 MG PO SCH ×2 (08:38→21:28)
[2018-02-21] MEDS: Hydroxychloroquine TAB* 200 MG PO SCH ×2 (08:38→21:29)
[2018-02-21] MEDS: Sodium Chloride TAB* 1 GM PO SCH ×3 (08:39→21:27)
[2018-02-21] MEDS: Cyanocobalamin TAB* 500 MCG PO SCH (08:40)
[2018-02-21] MEDS: Cholecalciferol TAB* 1000 UNITS PO SCH (08:41)
[2018-02-21 09:22] LABS: ABS Basophils 0 10^3/ul (0-0.2); ABS Eosinophils 0.2 10^3/ul (0-0.6); ABS Lymphocytes 0.7 10^3/ul (1.0-4.8); ABS Monocytes 0.4 10^3/ul (0-0.8); ABS Neutrophils 2.1 10^3/ul (1.5-7.7); ABS Nucleated RBC 0 10^3/ul; Eosinophil % 6.9 % (0-6); Hematocrit 36 % (35-47); Hemoglobin 12.3 g/dl (12.0-16.0); Lymphocyte % 20.2 % (25-47); Mean Corpuscular HGB Conc 34 g/dl (31-36); Mean Corpuscular Hemoglobin 31 pg (27-31); Mean Corpuscular Volume 90 fL (80-97); Mean Platelet Volume 7.1 um3 (7.4-10.4); Nucleated Red Blood Cells % 0.1; Platelet Count 175 10^3/ul (150-450); Red Blood Count 4.02 10^6/ul (4.00-5.40); Red Cell Distribution Width 15 % (10.5-15); White Blood Count 3.4 10^3/ul (3.5-10.8)
[2018-02-21 09:36] LABS: EGFR Non-African American 142.4 (>60)
[2018-02-21] MEDS: Ondansetron INJ* 2 MG/ML VIAL IV PRN (09:44)
[2018-02-21] MEDS: DULoxetine DR CAP* 30 MG CAP.DR PO SCH ×2 (11:51→17:33)
--- NOTE | 2018-02-21 12:57 | CONSULT ---
Identification - Patient Identification Reason for Psychiatric Consultation: Suicidal Ideation -: Patient is a 77 year old, F admitted on 02/21/18. - MHU Identification Employment Status: Disabled Hx Psychiatric Hospitalization: No History - Objective HPI: This clinician met with Dana to follow up today. She is tolerating the initiation of duloxetine well and continues to deny further SI. The patient remains somatic with chronic pain complaints. We discussed her use of alcohol further and she continues to insist that this is taken only to reduce her pain and that she's committed to abstaining from further use. "I hate AA but I know I have to go back. To be honest with you I think I'm having a little bit of withdrawal." The patient goes into her developmental history and discusses growing up with an unaffectionate mother in a financially stressed household. She also talks about feeling like a burden to her , Mg. At the end of our meeting Mg enters the room and asks to speak with me privately, reporting that the patient's children feel like she is an alcoholic and marginalize her pain issues. He is eager to find specialty care at a spinal center in [facility]. He feels safe taking her home. Exam Appearance: Well Developed/Nourished Hygiene: Normal Grooming: Well Kept Psychomotor Activities: Abnormal-Decreased Exhibits Abnormal Movement: No Attitude and Relatedness: Cooperative Eye Contact: Good - Speech Quality: Unpressured Latencies: Normal Quantity: Appropriate Patient's Decription of Mood: "Sad" Observed Affect: Constricted Affect Consistent with: Dysphoria Patient's Thought Process: Coherent Thought Content: No Passive Wish, No Suicidal Planning, No Homicidal Ideation, No Paranoid Ideation Experiencing Hallucinations: No, Sensorium is Clear Type of Hallucinations: Visual: No, Auditory: No, Command: No Level of Consciousness: Alert Orientation: Yes Intact, Yes Orientated to Time, Yes Orientated to Place, Yes Orientated to Person Impulse Control: Intact Insight and Judgement: Fair Impression - Impression Clinical Impression: 77 y.o. 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 Inpatient DSM-V Dx: F33.2 Merits Inpatient Hospitalization: No Problem List - MHU Problems Type of Problem: Mood Status of Problem: Active Plan - Treatment Plan Treatment Plan: The patient is tolerating the initiation of duloxetine and we'll increase the dose to 30mg PO qday. She continues to deny SI and I think she's safe for discharge without inpatient mental health treatment. I gave her some referral information for psychotherapy in the community and Dr. Gordon can manage her antidepressant. Pain and electrolyte management per Hospitalist service. Recommend resumption of AA services in the community to curb problem drinking. Psychiatry will continue to follow. Continued Medication Management: Start Medication Medications: Current Medications Acetaminophen (Tylenol Tab*) 650 mg PO Q4H PRN PRN Reason: FEVER/PAIN Al Hydrox/Mg Hydrox/Simethicone (Maalox Plus*) 30 ml PO Q6H PRN PRN Reason: INDIGESTION Albuterol (Ventolin 2.5 Mg/3 Ml Neb.Samreen*) 2.5 mg INH RT.[id number] AWAKE PRN PRN Reason: sob/wheezing Albuterol (Ventolin Hfa Inhaler*) 2 puff INH Q4H PRN PRN Reason: SOB/WHEEZING Apixaban (Eliquis*) 5 mg PO BID [facility] Last Admin: 02/21/18 08:36 Dose: 5 mg Cholecalciferol (Vitamin D Tab*) 2,000 units PO QAM [facility] Last Admin: 02/21/18 08:41 Dose: 2,000 units Cyanocobalamin (Vitamin B12 Tab*) 1,000 mcg PO DAILY [facility] Last Admin: 02/21/18 08:40 Dose: 1,000 mcg Docusate Sodium (Colace Cap*) 100 mg PO BID [facility] Last Admin: 02/21/18 08:38 Dose: 100 mg Dofetilide (Tikosyn Cap*) 500 mcg PO BID [facility] Last Admin: 02/21/18 08:36 Dose: 500 mcg Duloxetine HCl (Cymbalta Cap*) 30 mg PO 1700 [facility] Last Admin: 02/21/18 11:51 Dose: 30 mg Famotidine (Pepcid Tab*) 40 mg PO QPM [facility]; Protocol Last Admin: 02/20/18 17:03 Dose: 40 mg Gabapentin (Neurontin Cap(*)) 400 mg PO QPM [facility] Last Admin: 02/20/18 17:02 Dose: 400 mg Gabapentin (Neurontin Cap(*)) 600 mg PO QAM [facility] Last Admin: 02/21/18 08:37 Dose: 600 mg Hydralazine HCl (Apresoline Tab*) 10 mg PO BID [facility] Last Admin: 02/21/18 08:35 Dose: 10 mg Hydromorphone HCl (Dilaudid Tab*) 4 mg PO Q4HR [facility] Last Admin: 02/21/18 09:48 Dose: 4 mg Hydroxychloroquine Sulfate (Plaquenil Tab*) 200 mg PO BID [facility] Last Admin: 02/21/18 08:38 Dose: 200 mg Sodium Chloride (Ns 0.9% 1000 Ml*) 1,000 mls @ 125 mls/hr IV PER RATE [facility] Last Admin: 02/21/18 08:02 Dose: 125 mls/hr Levothyroxine Sodium (Synthroid Tab*) 137 mcg PO DAILY@0600 [facility] Last Admin: 02/21/18 06:02 Dose: 137 mcg Losartan Potassium (Cozaar Tab*) 50 mg PO QPM [facility]; Protocol Last Admin: 02/20/18 17:03 Dose: 50 mg Magnesium Hydroxide (Milk Of Magnharoon Liq*) 30 ml PO Q4H PRN PRN Reason: CONSTIPATION Mometasone Furoate/Formoterol Fumar (Dulera 100/5 Mdi*) 2 puff INH BID PRN PRN Reason: SOB/WHEEZING Montelukast Sodium (Singulair Tab*) 10 mg PO QAM [facility] Last Admin: 02/21/18 08:36 Dose: 10 mg Ondansetron HCl (Zofran Inj*) 4 mg IV Q4H PRN PRN Reason: NAUSEA/VOMITING Last Admin: 02/21/18 09:44 Dose: 4 mg Oxycodone/Acetaminophen (Percocet 5/325 Tab*) 2 tab PO Q6H PRN PRN Reason: Pain Last Admin: 02/21/18 10:39 Dose: 2 tab Sodium Chloride (Sodium Chloride Tab*) 1 gm PO 0900,1400,2100 [facility] Last Admin: 02/21/18 08:39 Dose: 1 gm - Discharge Plan Discharge Plan: Outpatient Follow Up Outpatient Program: Private Clinician(s)
[2018-02-21] MEDS ORDERED: HYDROmorphone INJ* 0.5 MG/0.5 ML SYRINGE IV SLOW PU ONE (16:04)
--- NOTE | 2018-02-21 16:16 | PN ---
Subjective Date of Service: 02/21/18 Interval History: . spoke with patient and her at bedside. , Mg, flew home from [place]. Patient stating she was drinking to treat her pain which was intractable. she is planning to go to surgeon in [place] and now wants referral to [facility] . We discussed that perhaps she would speak with one of our neurosurgeons for a second opinion, especially given she might need local care in the event of a complication or for follow up care. She states she has never seen one of our neurosurgeons before. denies new s/sx. no CP/SOB I agreed to increase the frequency of her percocet and to alternate it with her oral Dilaudid. One time dose of IV Dilaudid was ordered to get pain under control. Addendum: I reached out to her PCP, Dr. cano, who is in favor of a local neurosurgery referral. h/o mulitple back surgeries. h/o suicide attempt by opiate ingestion --> was thus fired from pain clinic --> difficult to control pain situation. recent MRI ordered and resulted ? unclear if surgical candidate...best to proceed with neurosurgical evaluation. . Family History: Unchanged from Admission Social History: Unchanged from Admission Past Medical History: Unchanged from Admission Objective Active Medications: . Acetaminophen (Tylenol Tab*) 650 mg PO Q4H PRN PRN Reason: FEVER/PAIN Al Hydrox/Mg Hydrox/Simethicone (Maalox Plus*) 30 ml PO Q6H PRN PRN Reason: INDIGESTION Albuterol (Ventolin 2.5 Mg/3 Ml Neb.Samreen*) 2.5 mg INH RT.[id number] AWAKE PRN PRN Reason: sob/wheezing Albuterol (Ventolin Hfa Inhaler*) 2 puff INH Q4H PRN PRN Reason: SOB/WHEEZING Apixaban (Eliquis*) 5 mg PO BID [facility] Last Admin: 02/21/18 08:36 Dose: 5 mg Cholecalciferol (Vitamin D Tab*) 2,000 units PO QAM [facility] Last Admin: 02/21/18 08:41 Dose: 2,000 units Cyanocobalamin (Vitamin B12 Tab*) 1,000 mcg PO DAILY [facility] Last Admin: 02/21/18 08:40 Dose: 1,000 mcg Docusate Sodium (Colace Cap*) 100 mg PO BID [facility] Last Admin: 02/21/18 08:38 Dose: 100 mg Dofetilide (Tikosyn Cap*) 500 mcg PO BID [facility] Last Admin: 02/21/18 08:36 Dose: 500 mcg Duloxetine HCl (Cymbalta Cap*) 30 mg PO 1700 [facility] Last Admin: 02/21/18 11:51 Dose: 30 mg Famotidine (Pepcid Tab*) 40 mg PO QPM [facility]; Protocol Last Admin: 02/20/18 17:03 Dose: 40 mg Gabapentin (Neurontin Cap(*)) 400 mg PO QPM [facility] Last Admin: 02/20/18 17:02 Dose: 400 mg Gabapentin (Neurontin Cap(*)) 600 mg PO QAM [facility] Last Admin: 02/21/18 08:37 Dose: 600 mg Hydralazine HCl (Apresoline Tab*) 10 mg PO BID [facility] Last Admin: 02/21/18 08:35 Dose: 10 mg Hydromorphone HCl (Dilaudid Tab*) 4 mg PO Q4HR [facility] Last Admin: 02/21/18 13:57 Dose: 4 mg Hydroxychloroquine Sulfate (Plaquenil Tab*) 200 mg PO BID [facility] Last Admin: 02/21/18 08:38 Dose: 200 mg Sodium Chloride (Ns 0.9% 1000 Ml*) 1,000 mls @ 125 mls/hr IV PER RATE [facility] Last Admin: 02/21/18 08:02 Dose: 125 mls/hr Levothyroxine Sodium (Synthroid Tab*) 137 mcg PO DAILY@0600 [facility] Last Admin: 02/21/18 06:02 Dose: 137 mcg Losartan Potassium (Cozaar Tab*) 50 mg PO QPM [facility]; Protocol Last Admin: 02/20/18 17:03 Dose: 50 mg Magnesium Hydroxide (Milk Of Magnesia Liq*) 30 ml PO Q4H PRN PRN Reason: CONSTIPATION Mometasone Furoate/Formoterol Fumar (Dulera 100/5 Mdi*) 2 puff INH BID PRN PRN Reason: SOB/WHEEZING Montelukast Sodium (Singulair Tab*) 10 mg PO QAM [facility] Last Admin: 02/21/18 08:36 Dose: 10 mg Ondansetron HCl (Zofran Inj*) 4 mg IV Q4H PRN PRN Reason: NAUSEA/VOMITING Last Admin: 02/21/18 09:44 Dose: 4 mg Oxycodone/Acetaminophen (Percocet 5/325 Tab*) 2 tab PO Q4H PRN PRN Reason: Pain Sodium Chloride (Sodium Chloride Tab*) 1 gm PO 0900,1400,2100 [facility] Last Admin: 02/21/18 13:57 Dose: 1 gm . Vital Signs - 8 hr 02/21/18 02/21/18 02/21/18 08:22 08:28 08:37 Temperature Pulse Rate 58 Respiratory 18 18 16 Rate Blood Pressure 154/76 (mmHg) O2 Sat by Pulse Oximetry 02/21/18 02/21/18 02/21/18 09:48 10:39 10:57 Temperature Pulse Rate Respiratory 18 17 18 Rate Blood Pressure (mmHg) O2 Sat by Pulse Oximetry Oxygen Devices in Use Now: None Appearance: Uncomfortable. BACK mulitple lumbar scars from old surgeries. Eyes: No Scleral Icterus Ears/Nose/Mouth/Throat: Clear Oropharnyx Neck: NL Appearance and Movements; NL JVP Respiratory: Symmetrical Chest Expansion and Respiratory Effort Cardiovascular: NL Sounds; No Murmurs; No JVD Abdominal: NL Sounds; No Tenderness; No Distention Lymphatic: No Cervical Adenopathy Extremities: - - + edema bilaterally Skin: No Rash or Ulcers Neurological: Alert and Oriented x 3 Lines/Tubes/Other Access: Clean, Dry and Intact Peripheral IV Nutrition: Taking PO's Result Diagrams: 02/21/18 09:02 02/21/18 17:44 Additional Lab and Data: . Laboratory Tests 02/20/18 02/20/18 09:07 10:41 Urine Opiates Screen Presumptive positive A Serum Alcohol 173 H Assess/Plan/Problems-Billing . Assessment: 77 yo woman with severe back pain and SI in the seting of alcohol intoxication. Also, severe acute hyponatremia and apparent SIADH with [Na] < 120 and urine osmolarity of > 400 reaching out to PCP for additional history of back surgeries and plan to consult neurosurgery in AM. . - Patient Problems (1) Intractable back pain Current Visit: Yes Status: Acute Priority: High Code(s): M54.9 - DORSALGIA , UNSPECIFIED Comment: - slight increase in oral regimen - avoid IV agents as much a spossible - consult neurosurgery 02/22 - inquired about back pain history from PCP--> complicated story involving multiple surgeries over decades with recent MRI of unclear significance. pain control complicated by h/o SI/suicide attempts using opiates -->dismissed from pain clinic-->in a tough place given ongoing pain. (2) Hyponatremia with increased serum osmolality Current Visit: Yes Status: Acute Priority: High Code(s): E87.1 - HYPO- OSMOLALITY AND HYPONATREMIA Comment: - stop IVF for now (Uosm > fluid osm) - continue NaCl tabs - fluid restriction - follow labs (3) Alcohol abuse Current Visit: No Status: Acute Priority: High Code(s): F10.10 - ALCOHOL ABUSE, UNCOMPLICATED Comment: and patient deny both recent alcohol abuse outside efforts "to treat her pain". observe and order WAM if any s/sx of withdrawal present. (4) Depression Current Visit: No Status: Acute Priority: High Code(s): F32.9 - MAJOR DEPRESSIVE DISORDER, SINGLE EPISODE, UNSPECIFIED Comment: Appreciate psychiatry consult SNRI dose increased (5) Chronic pain Current Visit: No Status: Chronic Priority: High Code(s): G89.29 - OTHER CHRONIC PAIN Comment: Continue prn dilaudid 4mg po q4hr Percocet (1 or 2) Q4 prn (6) Suicidal behavior with attempted self-injury Current Visit: Yes Status: Acute Priority: High Code(s): T14.91XA - SUICIDE ATTEMPT, INITIAL ENCOUNTER Comment: - please refer to psychiatry notes; etoh involved -- (pt drank bottle of wine and expressed not wanting to wake up); patient now denies SI.
[2018-02-21] MEDS: Gabapentin CAP(*) 400 MG PO SCH (17:24)
[2018-02-21] MEDS: Losartan TAB* 25 MG PO SCH (17:26)
[2018-02-21] MEDS: Famotidine TAB* 20 MG PO SCH (17:32)
[2018-02-21 18:11] LABS: EGFR Non-African American 125.4 (>60)
[2018-02-22] MEDS: HYDROmorphone TAB* 4 MG PO SCH ×6 (01:35→21:37)
[2018-02-22] MEDS: oxyCODONE/Acetamin 5/325 MG* TAB PO PRN ×5 (03:41→20:32)
[2018-02-22] MEDS: Levothyroxine TAB* 137 MCG TAB PO SCH (05:53)
[2018-02-22 06:44] LABS: ABS Basophils 0 10^3/ul (0-0.2); ABS Eosinophils 0.2 10^3/ul (0-0.6); ABS Lymphocytes 0.8 10^3/ul (1.0-4.8); ABS Monocytes 0.4 10^3/ul (0-0.8); ABS Neutrophils 1.7 10^3/ul (1.5-7.7); ABS Nucleated RBC 0 10^3/ul; Eosinophil % 6.6 % (0-6); Hematocrit 35 % (35-47); Hemoglobin 11.8 g/dl (12.0-16.0); Lymphocyte % 26.2 % (25-47); Mean Corpuscular HGB Conc 34 g/dl (31-36); Mean Corpuscular Hemoglobin 31 pg (27-31); Mean Corpuscular Volume 91 fL (80-97); Mean Platelet Volume 7.1 um3 (7.4-10.4); Nucleated Red Blood Cells % 0.1; Platelet Count 145 10^3/ul (150-450); Red Blood Count 3.81 10^6/ul (4.00-5.40); Red Cell Distribution Width 14 % (10.5-15); White Blood Count 3.2 10^3/ul (3.5-10.8)
[2018-02-22 08:18] LABS: EGFR Non-African American 125.4 (>60)
[2018-02-22] MEDS: hydrALAZINE TAB* 10 MG PO SCH ×2 (08:25→20:31)
[2018-02-22] MEDS: Cyanocobalamin TAB* 500 MCG PO SCH (09:19)
[2018-02-22] MEDS: Cholecalciferol TAB* 1000 UNITS PO SCH (09:19)
[2018-02-22] MEDS: Hydroxychloroquine TAB* 200 MG PO SCH ×2 (09:20→20:31)
[2018-02-22] MEDS: Sodium Chloride TAB* 1 GM PO SCH ×3 (09:20→20:32)
[2018-02-22] MEDS: Gabapentin CAP(*) 300 MG PO SCH (09:21)
[2018-02-22] MEDS: Dofetilide CAP* 500 MCG PO SCH ×2 (09:21→20:32)
[2018-02-22] MEDS: Apixaban* 5 MG TAB PO SCH ×2 (09:22→20:31)
[2018-02-22] MEDS: Montelukast Sodium TAB* 10 MG PO SCH (09:22)
[2018-02-22] MEDS: Docusate CAP* 100 MG PO SCH ×2 (09:22→20:32)
[2018-02-22] MEDS: Ondansetron INJ* 2 MG/ML VIAL IV PRN ×4 (10:18→22:54)
--- NOTE | 2018-02-22 15:57 | CONSULT ---
Consult Consult: This clinician attempted routine follow up with the patient, however, she was found asleep in bed, snoring and difficult to arouse, even with loud voice and light touch. I alerted the nurse to inform the patient of my visit and will return to see her tomorrow.
--- NOTE | 2018-02-22 17:23 | PN ---
Subjective Date of Service: 02/22/18 Interval History: Reports pain is better today Nausea that was hindering her from eating but is relieved with zofran denies anxiety, tremulousness, SHER, confusion, agitation Family History: Unchanged from Admission Social History: Unchanged from Admission Past Medical History: Unchanged from Admission Objective Active Medications: Acetaminophen (Tylenol Tab*) 650 mg PO Q4H PRN PRN Reason: FEVER/PAIN Al Hydrox/Mg Hydrox/Simethicone (Maalox Plus*) 30 ml PO Q6H PRN PRN Reason: INDIGESTION Albuterol (Ventolin 2.5 Mg/3 Ml Neb.Samreen*) 2.5 mg INH [id number] AWAKE PRN PRN Reason: sob/wheezing Albuterol (Ventolin Hfa Inhaler*) 2 puff INH Q4H PRN PRN Reason: SOB/WHEEZING Apixaban (Eliquis*) 5 mg PO BID [facility] Last Admin: 02/22/18 09:22 Dose: 5 mg Cholecalciferol (Vitamin D Tab*) 2,000 units PO QAM [facility] Last Admin: 02/22/18 09:19 Dose: 2,000 units Cyanocobalamin (Vitamin B12 Tab*) 1,000 mcg PO DAILY [facility] Last Admin: 02/22/18 09:19 Dose: 1,000 mcg Docusate Sodium (Colace Cap*) 100 mg PO BID [facility] Last Admin: 02/22/18 09:22 Dose: 100 mg Dofetilide (Tikosyn Cap*) 500 mcg PO BID [facility] Last Admin: 02/22/18 09:21 Dose: 500 mcg Duloxetine HCl (Cymbalta Cap*) 30 mg PO 1700 [facility] Last Admin: 02/21/18 17:33 Dose: 30 mg Famotidine (Pepcid Tab*) 40 mg PO QPM [facility]; Protocol Last Admin: 02/21/18 17:32 Dose: 40 mg Gabapentin (Neurontin Cap(*)) 400 mg PO QPM [facility] Last Admin: 02/21/18 17:24 Dose: 400 mg Gabapentin (Neurontin Cap(*)) 600 mg PO QAM [facility] Last Admin: 02/22/18 09:21 Dose: 600 mg Hydralazine HCl (Apresoline Tab*) 10 mg PO BID [facility] Last Admin: 07/11/18 08:25 Dose: 10 mg Hydromorphone HCl (Dilaudid Tab*) 4 mg PO Q4HR [facility] Last Admin: 02/22/18 14:05 Dose: 4 mg Hydroxychloroquine Sulfate (Plaquenil Tab*) 200 mg PO BID [facility] Last Admin: 02/22/18 09:20 Dose: 200 mg Levothyroxine Sodium (Synthroid Tab*) 137 mcg PO DAILY@0600 [facility] Last Admin: 02/22/18 05:53 Dose: 137 mcg Losartan Potassium (Cozaar Tab*) 50 mg PO QPM [facility]; Protocol Last Admin: 02/21/18 17:26 Dose: 50 mg Magnesium Hydroxide (Milk Of Magnesia Liq*) 30 ml PO Q4H PRN PRN Reason: CONSTIPATION Mometasone Furoate/Formoterol Fumar (Dulera 100/5 Mdi*) 2 puff INH BID PRN PRN Reason: SOB/WHEEZING Montelukast Sodium (Singulair Tab*) 10 mg PO QAM [facility] Last Admin: 02/22/18 09:22 Dose: 10 mg Ondansetron HCl (Zofran Inj*) 4 mg IV Q4H PRN PRN Reason: NAUSEA/VOMITING Last Admin: 02/22/18 14:57 Dose: 4 mg Oxycodone/Acetaminophen (Percocet 5/325 Tab*) 2 tab PO Q4H PRN PRN Reason: Pain Last Admin: 02/22/18 16:15 Dose: 2 tab Sodium Chloride (Sodium Chloride Tab*) 1 gm PO 0900,1400,2100 [facility] Last Admin: 02/22/18 14:05 Dose: 1 gm Vital Signs - 8 hr 02/22/18 02/22/18 02/22/18 09:21 09:30 10:18 Temperature Pulse Rate Respiratory 18 18 Rate Blood Pressure 154/74 (mmHg) O2 Sat by Pulse Oximetry 02/22/18 02/22/18 02/22/18 11:20 12:15 12:20 Temperature Pulse Rate Respiratory 18 18 18 Rate Blood Pressure (mmHg) O2 Sat by Pulse Oximetry 02/22/18 02/22/18 02/22/18 12:24 14:05 16:07 Temperature 98.4 F Pulse Rate 54 Respiratory 20 16 18 Rate Blood Pressure 172/76 (mmHg) O2 Sat by Pulse 98 Oximetry 02/22/18 16:15 Temperature Pulse Rate Respiratory 20 Rate Blood Pressure (mmHg) O2 Sat by Pulse Oximetry Oxygen Devices in Use Now: None Appearance: NAD Eyes: No Scleral Icterus, PERRLA Ears/Nose/Mouth/Throat: Clear Oropharnyx, Mucous Membranes Moist Neck: NL Appearance and Movements; NL JVP, Trachea Midline Respiratory: Symmetrical Chest Expansion and Respiratory Effort, Clear to Auscultation Cardiovascular: RRR, - - 2+ late peaking EMMY Abdominal: NL Sounds; No Tenderness; No Distention, No Hepatosplenomegaly Lymphatic: No Cervical Adenopathy Extremities: - - 2+ LE edema Neurological: Alert and Oriented x 3 Result Diagrams: 02/22/18 06:10 02/22/18 06:10 Additional Lab and Data: . Laboratory Tests 02/20/18 02/20/18 09:07 10:41 Urine Opiates Screen Presumptive positive A Serum Alcohol 173 H Assess/Plan/Problems-Billing . Assessment: 77 yo woman with h/o s/p AVR, afib on AC, CHF, depression, chronic pain p/w severe back pain and SI in the setting of alcohol intoxication found with hyponatremia - Patient Problems (1) Hyponatremia with increased serum osmolality Comment: - received IVF now stopped - continue NaCl tabs - fluid restriction - follow labs (2) Alcohol abuse Comment: and patient endorse recent alcohol use in effort "to treat her pain" but deny abuse Has not required WAM/benzos (3) Aortic stenosis Comment: s/p AVR (4) Chronic pain Comment: Continue prn dilaudid 4mg po q4hr Percocet (1 or 2) Q4 prn was on long acting as outpatient. Recently discharged from pain clinic (5) Depression Comment: Appreciate psychiatry consult SNRI dose increased (6) Intractable back pain Comment: - avoid IV agents - consult neurosurgery 02/22 - inquired about back pain history from PCP--> complicated story involving multiple surgeries over decades with recent MRI of unclear significance. pain control complicated by h/o SI/suicide attempts using opiates -->dismissed from pain clinic-->in a tough place given ongoing pain. (7) Suicidal behavior with attempted self-injury Comment: - please refer to psychiatry notes; etoh involved -- (pt drank bottle of wine and expressed not wanting to wake up); patient now denies SI. -not risk to self at the moment (8) Afib Comment: Pt currently in NSR. Continue tikosyn and eliquis. Status and Disposition: inpt for tx of hyponatremia
[2018-02-22] MEDS: Famotidine TAB* 20 MG PO SCH (18:04)
[2018-02-22] MEDS: Gabapentin CAP(*) 400 MG PO SCH (18:05)
[2018-02-22] MEDS: DULoxetine DR CAP* 30 MG CAP.DR PO SCH (18:05)
[2018-02-22] MEDS: Losartan TAB* 25 MG PO SCH (18:05)
--- NOTE | 2018-02-23 02:09 | CONS ---
CONSULTATION REPORT: DATE OF CONSULT: 02/22/18 HISTORY OF PRESENT ILLNESS: The patient is a very pleasant 77-year-old female with multiple comorbidities including hypertension, atrial fibrillation, who was on Eliquis, chronic pain due to psoriatic arthritis, depression, hypothyroidism and history of breast cancer, who has prolonged history of multiple spinal surgeries including multiple laminectomies, anterior lumbar interbody fusion and thoracic laminectomy for tumor resection. The patient had multiple surgeries in [facility], in [place], and in [place]. The last one was in [place] for tumor resection in 70s. She reports that she has not been followed by the spinal surgeon for quite a long time. She has been treated with pain medication for her chronic back pain. The patient reports that the pain has progressively gotten worse and she had significant difficulties. She reports that after her last surgery for the thoracic tumor resection, she was not able to walk without a cane and has difficulty with controlling her legs. She also reports that she has been having incontinence and has been scheduled to have a followup appointment with neurosurgeon in [place]. The patient was admitted because of possible suicidal ideation. She was reported to be self-medicated with 1 bottle of wine and she has expressed the thought that she would like to attempt to go to sleep and never wake up. She has been admitted by the Internal Medicine team and has been evaluated by Psychiatry. Requested to see the patient by Dr. Cui because of her complicated spinal history. The patient reports that she has chronic weakness in the lower extremities with loss of sensation in both feet, which she attributes to chronic neuropathy. The patient is retired. She is and her helps her to make decisions. PAST MEDICAL HISTORY: Hypertension, atrial fibrillation, psoriatic arthritis, hypothyroidism, depression, chronic headaches, history of MRSA in the past. She reports she has had surgery on her right arm. She had infection and she reported she had MRSA bacteremia. Meningitis, spinal infection. The patient has history of hyperlipidemia, chronic pain, GERD, congestive heart failure. PAST SURGICAL HISTORY: Carpal tunnel release, right total knee replacement, left total knee replacement, ankle surgery for foot reconstruction, back surgery including multiple operations as stated above, right elbow replacement with 2 reconstruction surgeries, right third finger surgery, right lumpectomy with central node for her breast cancer, cardiac catheterization without stent placement. MEDICATIONS: The patient was on: 1. Albuterol. 2. Ventolin. 3. Eliquis. 4. Vitamin D. 5. Vitamin B12. 6. Docusate. 7. Tikosyn. 8. Neurontin. 9. Hydralazine. 10. Hydromorphone. 11. Dilaudid. 12. Plaquenil. 13. Probiotics. 14. Synthroid. 15. Dulera. 16. Singulair. 17. Multivitamins. 18. Zantac. 19. Bactrim. 20. Micardis. ALLERGIES: The patient is allergic to CELECOXIB, METHOTREXATE, VANCOMYCIN, CHLORHEXIDINE and ADHESIVE. FAMILY HISTORY: Mother had stroke, also history of NV and breast cancer. SOCIAL HISTORY: The patient denies use of tobacco. She is a former smoker. She denies alcoholic use or recreational drugs. The patient is and lives with her , Mg, who is her healthcare proxy. PHYSICAL EXAM: The patient is in not in acute distress. She is awake, alert, oriented x3. Her pupils are equal and reactive. Cranial nerves II through XII grossly intact. Motor 4 to 5/5 in the upper extremities, 4-/5 in the lower extremities. Sensation was grossly intact to light touch except decreased sensation to bilateral lower extremities below the ankles and this is all the patient reports. Deep tendon reflexes +1 in the upper extremities, +2 in the lower extremities, no clonus, no Babinski. Wojciech's negative. Straight leg test negative in the sitting position. The patient has posterior thoracic and lumbar wound incisions that are soft, clean, dry, healed very well. DIAGNOSTIC STUDIES/LAB DATA: The patient had multiple MRIs in the past from December and beginning of January. MRI of the cervical spine reveals degenerative disk disease with multilevel stenosis. There is a C1-C2 pannus that cause stenosis at that level and compared to the previous MRI from 2010, there is progression of the stenosis. It is not clear if there is a degree of basilar invagination also. MRI of the cervical spine with contrast did not reveal any significant enhancement. The patient had an MRI of the thoracic spine that reveals degenerative disk disease. 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 There is some dilatation of the spinal canal with question of syringomyelia, although the MRI imaging is not of optimal quality. MRI with contrast did not reveal any abnormal enhancement. On the MRI of the lumbar spine, the patient has multilevel degenerative disk disease. At L4-L5 and L5-S1 with posterior laminectomy at L2-L3 and L4-L5 with some metallic artifact. 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 MRI with contrast do not reveal any abnormal enhancement. The patient also had a CT scan of her lumbar spine in the past that reveals similar findings as to the degree of scoliosis and multilevel degenerative disk disease with disk vacuum phenomenon and also evidence of previous interbody fusion at L4-5 and L5-S1, possible anterior lumbar interbody fusion as the patient reported. There is also a small metallic artifact. The patient reports that she had history for surgery in [place] for retaining of a small tip of the suction from the surgical intervention that she had in [facility] initially. ASSESSMENT: The patient is a very pleasant 77-year-old female with multiple medical problems with extensive history of thoracic and lumbar surgical interventions and evidence of arachnoiditis. PLAN: The patient at this point has significant amount of pain. Based on her MRI imaging, so far I think that conservative treatment would be her best option , especially in the face of arachnoiditis. Unfortunately, no previous imaging from the MRI is available to compare her thoracic spinal cord with previous imaging. Nevertheless, at this point, conservative treatment will be the best option for her in my opinion. The patient also understands and she is not wishing to proceed with any surgical intervention, especially given the fact that she had several procedures in the past without significant help. We recommend conservative treatment as of now. Thank you for allowing us to participate in the care of this patient. Please do not hesitate to contact our office in case you have any further questions or concerns regarding the care of this patient. [id number]/[facility] #: [id number] NISHA
[2018-02-23] MEDS: HYDROmorphone TAB* 4 MG PO SCH ×6 (02:24→22:01)
[2018-02-23] MEDS: Ondansetron INJ* 2 MG/ML VIAL IV PRN ×3 (02:42→19:36)
[2018-02-23] MEDS: oxyCODONE/Acetamin 5/325 MG* TAB PO PRN ×5 (03:46→20:54)
[2018-02-23] MEDS ORDERED: amLODIPine TAB* 5 MG PO ONE (04:06)
[2018-02-23] MEDS: Levothyroxine TAB* 137 MCG TAB PO SCH (05:09)
[2018-02-23 06:21] LABS: ABS Basophils 0 10^3/ul (0-0.2); ABS Eosinophils 0.2 10^3/ul (0-0.6); ABS Lymphocytes 0.7 10^3/ul (1.0-4.8); ABS Monocytes 0.3 10^3/ul (0-0.8); ABS Neutrophils 1.2 10^3/ul (1.5-7.7); ABS Nucleated RBC 0 10^3/ul; Eosinophil % 6.5 % (0-6); Hematocrit 34 % (35-47); Hemoglobin 11.6 g/dl (12.0-16.0); Lymphocyte % 27.8 % (25-47); Mean Corpuscular HGB Conc 34 g/dl (31-36); Mean Corpuscular Hemoglobin 31 pg (27-31); Mean Corpuscular Volume 90 fL (80-97); Mean Platelet Volume 6.9 um3 (7.4-10.4); Nucleated Red Blood Cells % 0.1; Platelet Count 127 10^3/ul (150-450); Red Blood Count 3.79 10^6/ul (4.00-5.40); Red Cell Distribution Width 14 % (10.5-15); White Blood Count 2.4 10^3/ul (3.5-10.8)
[2018-02-23 06:45] LABS: EGFR Non-African American 131.7 (>60)
[2018-02-23] MEDS: Apixaban* 5 MG TAB PO SCH ×2 (08:22→20:54)
[2018-02-23] MEDS: Docusate CAP* 100 MG PO SCH ×2 (08:22→20:55)
[2018-02-23] MEDS: hydrALAZINE TAB* 10 MG PO SCH ×2 (08:22→20:56)
[2018-02-23] MEDS: Cholecalciferol TAB* 1000 UNITS PO SCH (08:23)
[2018-02-23] MEDS: Montelukast Sodium TAB* 10 MG PO SCH (08:23)
[2018-02-23] MEDS: Sodium Chloride TAB* 1 GM PO SCH ×4 (08:24→21:01)
[2018-02-23] MEDS: Cyanocobalamin TAB* 500 MCG PO SCH (08:24)
[2018-02-23] MEDS: Dofetilide CAP* 500 MCG PO SCH ×2 (08:24→21:01)
[2018-02-23] MEDS: Hydroxychloroquine TAB* 200 MG PO SCH ×2 (08:24→21:01)
[2018-02-23] MEDS: Gabapentin CAP(*) 300 MG PO SCH (08:25)
[2018-02-23] MEDS ORDERED: Furosemide TAB* 20 MG PO ONE (10:38)
--- NOTE | 2018-02-23 10:43 | PN ---
Subjective Date of Service: 02/23/18 Interval History: +nausea relieved with zofran. Feels zofran makes her sleepy but also notes "maybe that is because I can sleep after nausea is relieved." Declining change in antiemetic Pain well controlled with current regimen of narcotics Notes constipation - last BM was on admission Feels somewhat thirsty when asked but not dry Denies symptoms of alcohol withdrawal Family History: Unchanged from Admission Social History: Unchanged from Admission Past Medical History: Unchanged from Admission Objective Active Medications: Acetaminophen (Tylenol Tab*) 650 mg PO Q4H PRN PRN Reason: FEVER/PAIN Al Hydrox/Mg Hydrox/Simethicone (Maalox Plus*) 30 ml PO Q6H PRN PRN Reason: INDIGESTION Albuterol (Ventolin 2.5 Mg/3 Ml Neb.Samreen*) 2.5 mg INH [id number] AWAKE PRN PRN Reason: sob/wheezing Albuterol (Ventolin Hfa Inhaler*) 2 puff INH Q4H PRN PRN Reason: SOB/WHEEZING Apixaban (Eliquis*) 5 mg PO BID [facility] Last Admin: 02/23/18 08:22 Dose: 5 mg Cholecalciferol (Vitamin D Tab*) 2,000 units PO QAM [facility] Last Admin: 02/23/18 08:23 Dose: 2,000 units Cyanocobalamin (Vitamin B12 Tab*) 1,000 mcg PO DAILY [facility] Last Admin: 02/23/18 08:24 Dose: 1,000 mcg Docusate Sodium (Colace Cap*) 100 mg PO BID [facility] Last Admin: 02/23/18 08:22 Dose: 100 mg Dofetilide (Tikosyn Cap*) 500 mcg PO BID [facility] Last Admin: 02/23/18 08:24 Dose: 500 mcg Duloxetine HCl (Cymbalta Cap*) 30 mg PO 1700 [facility] Last Admin: 02/22/18 18:05 Dose: 30 mg Famotidine (Pepcid Tab*) 40 mg PO QPM [facility]; Protocol Last Admin: 02/22/18 18:04 Dose: 40 mg Gabapentin (Neurontin Cap(*)) 400 mg PO QPM [facility] Last Admin: 02/22/18 18:05 Dose: 400 mg Gabapentin (Neurontin Cap(*)) 600 mg PO QAM [facility] Last Admin: 02/23/18 08:25 Dose: 600 mg Hydralazine HCl (Apresoline Tab*) 10 mg PO BID [facility] Last Admin: 02/23/18 08:22 Dose: 10 mg Hydromorphone HCl (Dilaudid Tab*) 4 mg PO Q4HR [facility] Last Admin: 02/23/18 05:08 Dose: 4 mg Hydroxychloroquine Sulfate (Plaquenil Tab*) 200 mg PO BID [facility] Last Admin: 02/23/18 08:24 Dose: 200 mg Levothyroxine Sodium (Synthroid Tab*) 137 mcg PO DAILY@0600 [facility] Last Admin: 02/23/18 05:09 Dose: 137 mcg Losartan Potassium (Cozaar Tab*) 100 mg PO QPM [facility]; Protocol Magnesium Hydroxide (Milk Of Magnesia Liq*) 30 ml PO Q4H PRN PRN Reason: CONSTIPATION Mometasone Furoate/Formoterol Fumar (Dulera 100/5 Mdi*) 2 puff INH BID PRN PRN Reason: SOB/WHEEZING Montelukast Sodium (Singulair Tab*) 10 mg PO QAM [facility] Last Admin: 02/23/18 08:23 Dose: 10 mg Ondansetron HCl (Zofran Inj*) 4 mg IV Q4H PRN PRN Reason: NAUSEA/VOMITING Last Admin: 02/23/18 02:42 Dose: 4 mg Oxycodone/Acetaminophen (Percocet 5/325 Tab*) 2 tab PO Q4H PRN PRN Reason: Pain Last Admin: 02/23/18 08:21 Dose: 2 tab Polyethylene Glycol/Electrolytes (Miralax*) 17 gm PO DAILY [facility] Senna (Senokot Tab*) 2 tab PO BEDTIME [facility] Sodium Chloride (Sodium Chloride Tab*) 1 gm PO QID [facility] Vital Signs - 8 hr 02/23/18 02/23/18 02/23/18 02:58 03:46 04:25 Temperature Pulse Rate Respiratory 16 16 Rate Blood Pressure 190/80 (mmHg) O2 Sat by Pulse Oximetry 02/23/18 02/23/18 02/23/18 05:08 06:35 07:18 Temperature 98.2 F Pulse Rate 48 Respiratory 16 16 16 Rate Blood Pressure 164/72 (mmHg) O2 Sat by Pulse 98 Oximetry 02/23/18 02/23/18 02/23/18 07:43 07:52 08:21 Temperature Pulse Rate Respiratory 18 18 20 Rate Blood Pressure (mmHg) O2 Sat by Pulse Oximetry 02/23/18 08:25 Temperature Pulse Rate Respiratory 20 Rate Blood Pressure (mmHg) O2 Sat by Pulse Oximetry Oxygen Devices in Use Now: None Appearance: sitting in chair, NAD Eyes: No Scleral Icterus, PERRLA Ears/Nose/Mouth/Throat: Clear Oropharnyx, Mucous Membranes Moist Neck: NL Appearance and Movements; NL JVP, Trachea Midline Respiratory: Symmetrical Chest Expansion and Respiratory Effort, - - rales left base Cardiovascular: RRR Abdominal: NL Sounds; No Tenderness; No Distention, No Hepatosplenomegaly Lymphatic: No Cervical Adenopathy, No Axillary Adenopathy Extremities: - - 2+ le edema Skin: No Rash or Ulcers Neurological: Alert and Oriented x 3 Result Diagrams: 02/23/18 06:03 02/23/18 06:03 Additional Lab and Data: . Laboratory Tests 02/20/18 02/20/18 09:07 10:41 Urine Opiates Screen Presumptive positive A Serum Alcohol 173 H Assess/Plan/Problems-Billing . Assessment: 77 yo woman with h/o s/p AVR, afib on AC, CHF, depression, chronic pain p/w severe back pain and SI in the setting of alcohol intoxication found with hyponatremia - Patient Problems (1) Hyponatremia with increased serum osmolality Comment: - multifactoral - etoh, medications, constipation, pain -suspect SIADH - received IVF on admisison with resultant decline in serum sodium - increase NaCl tabs from TID to QID - fluid restriction increased now - 800cc/24hrs - repeat urine Na, Cl, K and Osm -1 dose lasix 20mg PO now after urine collection -trend labs -consider tolvaptan if no improvement (2) Alcohol abuse Comment: and patient endorse recent alcohol use in effort "to treat her pain" but deny abuse Has not required WAM/benzos Monitor (3) Aortic stenosis Comment: s/p AVR (4) Chronic pain Comment: Continue prn dilaudid 4mg po q4hr Percocet (1 or 2) Q4 prn was on long acting as outpatient. Recently discharged from pain clinic Well controlled currently (5) Depression Comment: Appreciate psychiatry consult SNRI dose increased (6) Intractable back pain Comment: - avoid IV agents - consult neurosurgery 02/22 - inquired about back pain history from PCP--> complicated story involving multiple surgeries over decades with recent MRI of unclear significance. pain control complicated by h/o SI/suicide attempts using opiates -->dismissed from pain clinic-->in a tough place given ongoing pain. -appreciate consultation - conservative management (7) Suicidal behavior with attempted self-injury Comment: - please refer to psychiatry notes; etoh involved -- (pt drank bottle of wine and expressed not wanting to wake up); patient now denies SI. -not risk to self at the moment (8) Thrombocytopenia Comment: monitor (9) Hypertension Comment: increased losartan from 50 to 100mg 02/22 (10) Afib Comment: Pt currently in NSR. Continue tikosyn and eliquis. Status and Disposition: inpt for tx of hyponatremia
[2018-02-23] MEDS: Polyethylene Glycol 3350* 17 GM PACKET PO SCH (13:57)
--- NOTE | 2018-02-23 14:10 | CONSULT ---
Identification - Patient Identification Reason for Psychiatric Consultation: Suicidal Ideation -: Patient is a 77 year old, F admitted on 02/21/18. - MHU Identification Employment Status: Disabled Hx Psychiatric Hospitalization: No History - Objective HPI: This clinician met with Dana to follow up today. She is tolerating the initiation of duloxetine well and continues to deny further SI. She does endorse worsened mood and discouragement after speaking with the neurosurgery team here at [facility], as her sense is that the neurosurgeon is saying that her spinal situation is not amenable to surgical correction. "It was a disappointment. He encouraged me to get a second opinion though." She remains highly somatic, complaining of 8/10 back pain accompanied by nausea. She is open to outpatient referrals for therapy and med management. Exam Appearance: Well Developed/Nourished Hygiene: Normal Grooming: Well Kept Psychomotor Activities: Abnormal-Decreased Exhibits Abnormal Movement: No Attitude and Relatedness: Cooperative Eye Contact: Good - Speech Quality: Unpressured Latencies: Normal Quantity: Appropriate Patient's Decription of Mood: "Sad" Observed Affect: Constricted Affect Consistent with: Dysphoria Patient's Thought Process: Coherent Thought Content: No Passive Wish, No Suicidal Planning, No Homicidal Ideation, No Paranoid Ideation Experiencing Hallucinations: No, Sensorium is Clear Type of Hallucinations: Visual: No, Auditory: No, Command: No Level of Consciousness: Alert Orientation: Yes Intact, Yes Orientated to Time, Yes Orientated to Place, Yes Orientated to Person Impulse Control: Intact Insight and Judgement: Fair Impression - Impression Clinical Impression: 77 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 Inpatient DSM-V Dx: F33.2 Merits Inpatient Hospitalization: No Problem List - MHU Problems Type of Problem: Mood Status of Problem: Active Plan - Treatment Plan Treatment Plan: The patient is tolerating the initiation of duloxetine and we'll increase the dose to 30mg PO qday. She continues to deny SI and I think she's safe for discharge without inpatient mental health treatment. I gave her some referral information for psychotherapy in the community and Dr. Gordon can manage her antidepressant. Pain and electrolyte management per Hospitalist service. Recommend resumption of AA services in the community to curb problem drinking. Psychiatry will continue to follow. Continued Medication Management: Start Medication Medications: Current Medications Acetaminophen (Tylenol Tab*) 650 mg PO Q4H PRN PRN Reason: FEVER/PAIN Al Hydrox/Mg Hydrox/Simethicone (Maalox Plus*) 30 ml PO Q6H PRN PRN Reason: INDIGESTION Albuterol (Ventolin 2.5 Mg/3 Ml Neb.Samreen*) 2.5 mg INH [id number] AWAKE PRN PRN Reason: sob/wheezing Albuterol (Ventolin Hfa Inhaler*) 2 puff INH Q4H PRN PRN Reason: SOB/WHEEZING Apixaban (Eliquis*) 5 mg PO BID [facility] Last Admin: 02/23/18 08:22 Dose: 5 mg Cholecalciferol (Vitamin D Tab*) 2,000 units PO QAM [facility] Last Admin: 02/23/18 08:23 Dose: 2,000 units Cyanocobalamin (Vitamin B12 Tab*) 1,000 mcg PO DAILY [facility] Last Admin: 02/23/18 08:24 Dose: 1,000 mcg Docusate Sodium (Colace Cap*) 100 mg PO BID [facility] Last Admin: 02/23/18 08:22 Dose: 100 mg Dofetilide (Tikosyn Cap*) 500 mcg PO BID [facility] Last Admin: 02/23/18 08:24 Dose: 500 mcg Duloxetine HCl (Cymbalta Cap*) 30 mg PO 1700 [facility] Last Admin: 02/22/18 18:05 Dose: 30 mg Famotidine (Pepcid Tab*) 40 mg PO QPM [facility]; Protocol Last Admin: 02/22/18 18:04 Dose: 40 mg Gabapentin (Neurontin Cap(*)) 400 mg PO QPM [facility] Last Admin: 02/22/18 18:05 Dose: 400 mg Gabapentin (Neurontin Cap(*)) 600 mg PO QAM [facility] Last Admin: 02/23/18 08:25 Dose: 600 mg Hydralazine HCl (Apresoline Tab*) 10 mg PO BID [facility] Last Admin: 02/23/18 08:22 Dose: 10 mg Hydromorphone HCl (Dilaudid Tab*) 4 mg PO Q4HR [facility] Last Admin: 02/23/18 13:55 Dose: 4 mg Hydroxychloroquine Sulfate (Plaquenil Tab*) 200 mg PO BID [facility] Last Admin: 02/23/18 08:24 Dose: 200 mg Levothyroxine Sodium (Synthroid Tab*) 137 mcg PO DAILY@0600 [facility] Last Admin: 02/23/18 05:09 Dose: 137 mcg Losartan Potassium (Cozaar Tab*) 100 mg PO QPM [facility]; Protocol Magnesium Hydroxide (Milk Of Magnesia Liq*) 30 ml PO Q4H PRN PRN Reason: CONSTIPATION Mometasone Furoate/Formoterol Fumar (Dulera 100/5 Mdi*) 2 puff INH BID PRN PRN Reason: SOB/WHEEZING Montelukast Sodium (Singulair Tab*) 10 mg PO QAM [facility] Last Admin: 02/23/18 08:23 Dose: 10 mg Ondansetron HCl (Zofran Inj*) 4 mg IV Q4H PRN PRN Reason: NAUSEA/VOMITING Last Admin: 02/23/18 10:56 Dose: 4 mg Oxycodone/Acetaminophen (Percocet 5/325 Tab*) 2 tab PO Q4H PRN PRN Reason: Pain Last Admin: 02/23/18 12:01 Dose: 2 tab Polyethylene Glycol/Electrolytes (Miralax*) 17 gm PO DAILY [facility] Last Admin: 02/23/18 13:57 Dose: 17 gm Senna (Senokot Tab*) 2 tab PO BEDTIME [facility] Sodium Chloride (Sodium Chloride Tab*) 1 gm PO QID [facility] Last Admin: 02/23/18 13:57 Dose: 1 gm - Discharge Plan Discharge Plan: Outpatient Follow Up Outpatient Program: Private Clinician(s)
--- NOTE | 2018-02-23 16:14 | RAD ---
INDICATION: {Rales. COMPARISON: Comparison is made with a prior chest x-ray study from August 16, 2017. TECHNIQUE: Dual-energy PA and lateral views of the chest were obtained. FINDINGS: The heart is mildly enlarged and has increased slightly in size from the prior study. There is a small infiltrate at the right lung base. No pleural effusion is seen. IMPRESSION: 1. MILD CARDIOMEGALY SLIGHTLY INCREASED IN SIZE. 2. SMALL RIGHT BASILAR INFILTRATE.
[2018-02-23] MEDS: DULoxetine DR CAP* 30 MG CAP.DR PO SCH (18:25)
[2018-02-23] MEDS: Losartan TAB* 25 MG PO SCH (18:26)
[2018-02-23] MEDS: Famotidine TAB* 20 MG PO SCH (18:27)
[2018-02-23] MEDS: Gabapentin CAP(*) 400 MG PO SCH (18:27)
[2018-02-23] MEDS: Senna TAB PO SCH (20:54)
[2018-02-24] MEDS: oxyCODONE/Acetamin 5/325 MG* TAB PO PRN ×6 (01:07→23:52)
[2018-02-24] MEDS: HYDROmorphone TAB* 4 MG PO SCH ×6 (02:17→22:37)
[2018-02-24] MEDS: Levothyroxine TAB* 137 MCG TAB PO SCH (05:46)
[2018-02-24 06:19] LABS: ABS Basophils 0 10^3/ul (0-0.2); ABS Eosinophils 0.1 10^3/ul (0-0.6); ABS Lymphocytes 0.8 10^3/ul (1.0-4.8); ABS Monocytes 0.4 10^3/ul (0-0.8); ABS Neutrophils 1.3 10^3/ul (1.5-7.7); ABS Nucleated RBC 0 10^3/ul; Eosinophil % 5.2 % (0-6); Hematocrit 34 % (35-47); Hemoglobin 11.6 g/dl (12.0-16.0); Lymphocyte % 30.2 % (25-47); Mean Corpuscular HGB Conc 35 g/dl (31-36); Mean Corpuscular Hemoglobin 31 pg (27-31); Mean Corpuscular Volume 90 fL (80-97); Mean Platelet Volume 6.8 um3 (7.4-10.4); Nucleated Red Blood Cells % 0.1; Platelet Count 128 10^3/ul (150-450); Red Blood Count 3.74 10^6/ul (4.00-5.40); Red Cell Distribution Width 14 % (10.5-15); White Blood Count 2.7 10^3/ul (3.5-10.8)
[2018-02-24 06:39] LABS: EGFR Non-African American 122.5 (>60)
[2018-02-24] MEDS: Polyethylene Glycol 3350* 17 GM PACKET PO SCH (09:18)
[2018-02-24] MEDS: Gabapentin CAP(*) 300 MG PO SCH (09:20)
[2018-02-24] MEDS: Dofetilide CAP* 500 MCG PO SCH ×2 (09:21→22:37)
[2018-02-24] MEDS: hydrALAZINE TAB* 10 MG PO SCH ×2 (09:23→22:36)
[2018-02-24] MEDS: Hydroxychloroquine TAB* 200 MG PO SCH ×2 (09:23→22:35)
[2018-02-24] MEDS: Montelukast Sodium TAB* 10 MG PO SCH (09:23)
[2018-02-24] MEDS: Apixaban* 5 MG TAB PO SCH ×2 (09:23→22:36)
[2018-02-24] MEDS: Sodium Chloride TAB* 1 GM PO SCH ×4 (09:25→22:36)
[2018-02-24] MEDS: Cholecalciferol TAB* 1000 UNITS PO SCH (09:26)
[2018-02-24] MEDS: Cyanocobalamin TAB* 500 MCG PO SCH (09:26)
[2018-02-24] MEDS: Docusate CAP* 100 MG PO SCH ×2 (09:26→22:36)
[2018-02-24] MEDS: Ondansetron INJ* 2 MG/ML VIAL IV PRN ×3 (11:31→21:01)
[2018-02-24] MEDS ORDERED: Furosemide TAB* 20 MG PO ONE (15:23)
--- NOTE | 2018-02-24 15:44 | PN ---
Subjective Date of Service: 02/24/18 Interval History: Nausea in the AM. Still no BM Pain present but it due for meds right now Feeling discouraged Family History: Unchanged from Admission Social History: Unchanged from Admission Past Medical History: Unchanged from Admission Objective Active Medications: Acetaminophen (Tylenol Tab*) 650 mg PO Q4H PRN PRN Reason: FEVER/PAIN Al Hydrox/Mg Hydrox/Simethicone (Maalox Plus*) 30 ml PO Q6H PRN PRN Reason: INDIGESTION Albuterol (Ventolin 2.5 Mg/3 Ml Neb.Samreen*) 2.5 mg INH [id number] AWAKE PRN PRN Reason: sob/wheezing Albuterol (Ventolin Hfa Inhaler*) 2 puff INH Q4H PRN PRN Reason: SOB/WHEEZING Apixaban (Eliquis*) 5 mg PO BID [facility] Last Admin: 02/24/18 09:23 Dose: 5 mg Cholecalciferol (Vitamin D Tab*) 2,000 units PO QAM [facility] Last Admin: 02/24/18 09:26 Dose: 2,000 units Cyanocobalamin (Vitamin B12 Tab*) 1,000 mcg PO DAILY [facility] Last Admin: 02/24/18 09:26 Dose: 1,000 mcg Docusate Sodium (Colace Cap*) 100 mg PO BID [facility] Last Admin: 02/24/18 09:26 Dose: 100 mg Dofetilide (Tikosyn Cap*) 500 mcg PO BID [facility] Last Admin: 02/24/18 09:21 Dose: 500 mcg Duloxetine HCl (Cymbalta Cap*) 30 mg PO 1700 [facility] Last Admin: 02/23/18 18:25 Dose: 30 mg Famotidine (Pepcid Tab*) 40 mg PO QPM [facility]; Protocol Last Admin: 02/23/18 18:27 Dose: 40 mg Gabapentin (Neurontin Cap(*)) 400 mg PO QPM [facility] Last Admin: 02/23/18 18:27 Dose: 400 mg Gabapentin (Neurontin Cap(*)) 600 mg PO QAM [facility] Last Admin: 02/24/18 09:20 Dose: 600 mg Hydralazine HCl (Apresoline Tab*) 10 mg PO TID [facility] Hydromorphone HCl (Dilaudid Tab*) 4 mg PO Q4HR [facility] Last Admin: 02/24/18 15:35 Dose: 4 mg Hydroxychloroquine Sulfate (Plaquenil Tab*) 200 mg PO BID [facility] Last Admin: 02/24/18 09:23 Dose: 200 mg Levothyroxine Sodium (Synthroid Tab*) 137 mcg PO DAILY@0600 [facility] Last Admin: 02/24/18 05:46 Dose: 137 mcg Losartan Potassium (Cozaar Tab*) 100 mg PO QPM [facility]; Protocol Last Admin: 02/23/18 18:26 Dose: 100 mg Magnesium Hydroxide (Milk Of Magnesia Liq*) 30 ml PO Q4H PRN PRN Reason: CONSTIPATION Mometasone Furoate/Formoterol Fumar (Dulera 100/5 Mdi*) 2 puff INH BID PRN PRN Reason: SOB/WHEEZING Montelukast Sodium (Singulair Tab*) 10 mg PO QAM [facility] Last Admin: 02/24/18 09:23 Dose: 10 mg Ondansetron HCl (Zofran Inj*) 4 mg IV Q4H PRN PRN Reason: NAUSEA/VOMITING Last Admin: 02/24/18 11:31 Dose: 4 mg Oxycodone/Acetaminophen (Percocet 5/325 Tab*) 2 tab PO Q4H PRN PRN Reason: Pain Last Admin: 02/24/18 12:59 Dose: 2 tab Polyethylene Glycol/Electrolytes (Miralax*) 17 gm PO DAILY [facility] Last Admin: 02/24/18 09:18 Dose: 17 gm Senna (Senokot Tab*) 2 tab PO BEDTIME [facility] Last Admin: 02/23/18 20:54 Dose: 2 tab Sodium Chloride (Sodium Chloride Tab*) 1 gm PO QID [facility] Last Admin: 02/24/18 13:00 Dose: 1 gm Vital Signs - 8 hr 02/24/18 02/24/18 02/24/18 07:59 08:00 09:17 Temperature 97.9 F Pulse Rate 47 Respiratory 17 16 16 Rate Blood Pressure 167/65 (mmHg) O2 Sat by Pulse 99 Oximetry 02/24/18 02/24/18 02/24/18 09:20 11:20 11:22 Temperature 98.0 F Pulse Rate 47 Respiratory 17 17 16 Rate Blood Pressure (mmHg) O2 Sat by Pulse 100 Oximetry 02/24/18 02/24/18 02/24/18 11:38 11:59 12:59 Temperature Pulse Rate Respiratory 17 16 Rate Blood Pressure 179/82 (mmHg) O2 Sat by Pulse Oximetry 02/24/18 02/24/18 15:24 15:35 Temperature Pulse Rate Respiratory 16 17 Rate Blood Pressure (mmHg) O2 Sat by Pulse Oximetry Oxygen Devices in Use Now: None Appearance: NAD Eyes: No Scleral Icterus Ears/Nose/Mouth/Throat: NL Teeth, Lips, Gums, Clear Oropharnyx Neck: NL Appearance and Movements; NL JVP, Trachea Midline Respiratory: Symmetrical Chest Expansion and Respiratory Effort, Clear to Auscultation Cardiovascular: RRR Abdominal: NL Sounds; No Tenderness; No Distention, No Hepatosplenomegaly Lymphatic: No Cervical Adenopathy Extremities: No Edema Skin: No Rash or Ulcers Neurological: Alert and Oriented x 3 Result Diagrams: 02/24/18 06:04 02/24/18 06:04 Additional Lab and Data: . Laboratory Tests 02/20/18 02/20/18 09:07 10:41 Urine Opiates Screen Presumptive positive A Serum Alcohol 173 H Assess/Plan/Problems-Billing . Assessment: 77 yo woman with h/o s/p AVR, afib on AC, CHF, depression, chronic pain p/w severe back pain and SI in the setting of alcohol intoxication found with hyponatremia - Patient Problems (1) Hyponatremia with increased serum osmolality Comment: - multifactoral - etoh, medications, constipation, pain - suspect SIADH - received IVF on admisison with resultant decline in serum sodium - increase NaCl tabs from TID to QID - fluid restriction increased now - 800cc/24hrs - repeat urine Na, Cl, K and Osm -1 dose lasix 20mg PO 02/23 and again 02/24 -trend labs -consider tolvaptan if no improvement (2) Alcohol abuse Comment: and patient endorse recent alcohol use in effort "to treat her pain" but deny abuse Has not required WAM/benzos Monitor (3) Aortic stenosis Comment: s/p AVR (4) Chronic pain Comment: Continue prn dilaudid 4mg po q4hr Percocet (1 or 2) Q4 prn was on long acting as outpatient. Recently discharged from pain clinic Well controlled currently (5) Depression Comment: Appreciate psychiatry consult SNRI dose increased (6) Intractable back pain Comment: - avoid IV agents - consult neurosurgery 02/22 - -appreciate consultation - conservative management (7) Suicidal behavior with attempted self-injury Comment: - please refer to psychiatry notes; etoh involved -- (pt drank bottle of wine and expressed not wanting to wake up); patient now denies SI. -not risk to self at the moment (8) Thrombocytopenia Comment: monitor stable (9) Hypertension Comment: increased losartan from 50 to 100mg 02/22 increase hydralazine PO from BID to TID on 02/24 (10) Afib Comment: Pt currently in NSR. Continue tikosyn and eliquis. Status and Disposition: inpt for tx of hyponatremia
--- NOTE | 2018-02-24 16:28 | CONSULT ---
Identification - Patient Identification Reason for Psychiatric Consultation: Suicidal Ideation -: Patient is a 77 year old, F admitted on 02/21/18. - MHU Identification Employment Status: Disabled Hx Psychiatric Hospitalization: No History - Objective HPI: This clinician met with Dana to follow up today. Her spirits seem a little better today and she enjoyed a nice visit this morning from her , daughter, son-in-law and granddaughter. She continues to deny SI but admits to being still depressed. "I think it's physical, not mental. I really don't think I would be depressed if I didn't have this pain." She is tolerating the duloxetine well and endorses an understanding that it typically takes several weeks to see marked improvements in mood with antidepressant therapy. The patient agrees to follow up with outpatient psychotherapy, as well as AA, and is thankful for our brief work together. Exam Appearance: Well Developed/Nourished Hygiene: Normal Grooming: Well Kept Psychomotor Activities: Abnormal-Decreased Exhibits Abnormal Movement: No Attitude and Relatedness: Cooperative Eye Contact: Good - Speech Quality: Unpressured Latencies: Normal Quantity: Appropriate Patient's Decription of Mood: "Sad" Observed Affect: Constricted Affect Consistent with: Dysphoria Patient's Thought Process: Coherent Thought Content: No Passive Wish, No Suicidal Planning, No Homicidal Ideation, No Paranoid Ideation Experiencing Hallucinations: No, Sensorium is Clear Type of Hallucinations: Visual: No, Auditory: No, Command: No Level of Consciousness: Alert Orientation: Yes Intact, Yes Orientated to Time, Yes Orientated to Place, Yes Orientated to Person Impulse Control: Intact Insight and Judgement: Fair Impression - Impression Clinical Impression: 77 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 Inpatient DSM-V Dx: F33.2 Merits Inpatient Hospitalization: No Problem List - MHU Problems Type of Problem: Mood Status of Problem: Active Plan - Treatment Plan Treatment Plan: The patient is tolerating the initiation of duloxetine a30mg PO qday. She continues to deny SI and I think she's safe for discharge without inpatient mental health treatment. I gave her some referral information for psychotherapy in the community and Dr. Terry can manage her antidepressant. Pain and electrolyte management per Hospitalist service. Recommend resumption of AA services in the community to curb problem drinking. Psychiatry is signing off but can be re-consulted in the event of any significant changes in the patient's presentation. Thanks for allowing us to participate in her care. Continued Medication Management: Start Medication Medications: Current Medications Acetaminophen (Tylenol Tab*) 650 mg PO Q4H PRN PRN Reason: FEVER/PAIN Al Hydrox/Mg Hydrox/Simethicone (Maalox Plus*) 30 ml PO Q6H PRN PRN Reason: INDIGESTION Albuterol (Ventolin 2.5 Mg/3 Ml Neb.Samreen*) 2.5 mg INH [id number] AWAKE PRN PRN Reason: sob/wheezing Albuterol (Ventolin Hfa Inhaler*) 2 puff INH Q4H PRN PRN Reason: SOB/WHEEZING Apixaban (Eliquis*) 5 mg PO BID [facility] Last Admin: 02/24/18 09:23 Dose: 5 mg Cholecalciferol (Vitamin D Tab*) 2,000 units PO QAM [facility] Last Admin: 02/24/18 09:26 Dose: 2,000 units Cyanocobalamin (Vitamin B12 Tab*) 1,000 mcg PO DAILY [facility] Last Admin: 02/24/18 09:26 Dose: 1,000 mcg Docusate Sodium (Colace Cap*) 100 mg PO BID [facility] Last Admin: 02/24/18 09:26 Dose: 100 mg Dofetilide (Tikosyn Cap*) 500 mcg PO BID [facility] Last Admin: 02/24/18 09:21 Dose: 500 mcg Duloxetine HCl (Cymbalta Cap*) 30 mg PO 1700 [facility] Last Admin: 02/23/18 18:25 Dose: 30 mg Famotidine (Pepcid Tab*) 40 mg PO QPM [facility]; Protocol Last Admin: 02/23/18 18:27 Dose: 40 mg Gabapentin (Neurontin Cap(*)) 400 mg PO QPM [facility] Last Admin: 02/23/18 18:27 Dose: 400 mg Gabapentin (Neurontin Cap(*)) 600 mg PO QAM [facility] Last Admin: 02/24/18 09:20 Dose: 600 mg Hydralazine HCl (Apresoline Tab*) 10 mg PO TID [facility] Hydromorphone HCl (Dilaudid Tab*) 4 mg PO Q4HR [facility] Last Admin: 02/24/18 15:35 Dose: 4 mg Hydroxychloroquine Sulfate (Plaquenil Tab*) 200 mg PO BID [facility] Last Admin: 02/24/18 09:23 Dose: 200 mg Levothyroxine Sodium (Synthroid Tab*) 137 mcg PO DAILY@0600 [facility] Last Admin: 02/24/18 05:46 Dose: 137 mcg Losartan Potassium (Cozaar Tab*) 100 mg PO QPM [facility]; Protocol Last Admin: 02/23/18 18:26 Dose: 100 mg Magnesium Hydroxide (Milk Of Magnesia Liq*) 30 ml PO Q4H PRN PRN Reason: CONSTIPATION Mometasone Furoate/Formoterol Fumar (Dulera 100/5 Mdi*) 2 puff INH BID PRN PRN Reason: SOB/WHEEZING Montelukast Sodium (Singulair Tab*) 10 mg PO QAM [facility] Last Admin: 02/24/18 09:23 Dose: 10 mg Ondansetron HCl (Zofran Inj*) 4 mg IV Q4H PRN PRN Reason: NAUSEA/VOMITING Last Admin: 02/24/18 11:31 Dose: 4 mg Oxycodone/Acetaminophen (Percocet 5/325 Tab*) 2 tab PO Q4H PRN PRN Reason: Pain Last Admin: 02/24/18 12:59 Dose: 2 tab Polyethylene Glycol/Electrolytes (Miralax*) 17 gm PO DAILY [facility] Last Admin: 02/24/18 09:18 Dose: 17 gm Senna (Senokot Tab*) 2 tab PO BEDTIME [facility] Last Admin: 02/23/18 20:54 Dose: 2 tab Sodium Chloride (Sodium Chloride Tab*) 1 gm PO QID [facility] Last Admin: 02/24/18 13:00 Dose: 1 gm - Discharge Plan Discharge Plan: Outpatient Follow Up Outpatient Program: Private Clinician(s)
[2018-02-24] MEDS: Gabapentin CAP(*) 400 MG PO SCH (17:16)
[2018-02-24] MEDS: Losartan TAB* 25 MG PO SCH (17:18)
[2018-02-24] MEDS: DULoxetine DR CAP* 30 MG CAP.DR PO SCH (17:19)
[2018-02-24] MEDS: Famotidine TAB* 20 MG PO SCH (17:20)
[2018-02-24] MEDS: Senna TAB PO SCH (22:35)
[2018-02-25] MEDS: HYDROmorphone TAB* 4 MG PO SCH ×6 (02:50→22:17)
[2018-02-25] MEDS: Ondansetron INJ* 2 MG/ML VIAL IV PRN ×4 (02:58→22:37)
[2018-02-25] MEDS: Levothyroxine TAB* 137 MCG TAB PO SCH (05:59)
[2018-02-25 06:34] LABS: Hematocrit 35 % (35-47); Mean Corpuscular HGB Conc 35 g/dl (31-36); Mean Corpuscular Hemoglobin 31 pg (27-31); Mean Corpuscular Volume 90 fL (80-97); Platelet Count 120 10^3/ul (150-450); Red Blood Count 3.84 10^6/ul (4.00-5.40); Red Cell Distribution Width 14 % (10.5-15); White Blood Count 2.8 10^3/ul (3.5-10.8)
[2018-02-25 06:57] LABS: EGFR Non-African American 116.9 (>60)
[2018-02-25] MEDS: Docusate CAP* 100 MG PO SCH ×2 (07:35→21:03)
[2018-02-25] MEDS: Gabapentin CAP(*) 300 MG PO SCH (07:36)
[2018-02-25] MEDS: Dofetilide CAP* 500 MCG PO SCH (07:36)
[2018-02-25] MEDS: Apixaban* 5 MG TAB PO SCH ×2 (07:37→21:02)
[2018-02-25] MEDS: Cyanocobalamin TAB* 500 MCG PO SCH (07:37)
[2018-02-25] MEDS: Hydroxychloroquine TAB* 200 MG PO SCH ×2 (07:37→21:02)
[2018-02-25] MEDS: Cholecalciferol TAB* 1000 UNITS PO SCH (07:37)
[2018-02-25] MEDS: Sodium Chloride TAB* 1 GM PO SCH ×4 (07:37→21:02)
[2018-02-25] MEDS: oxyCODONE/Acetamin 5/325 MG* TAB PO PRN ×4 (07:38→21:05)
[2018-02-25] MEDS: hydrALAZINE TAB* 10 MG PO SCH ×3 (07:38→21:03)
[2018-02-25] MEDS: Montelukast Sodium TAB* 10 MG PO SCH (07:38)
[2018-02-25] MEDS: Polyethylene Glycol 3350* 17 GM PACKET PO SCH (07:39)
[2018-02-25] MEDS ORDERED: Bisacodyl SUPP* 10 MG SUPP PR PRN (08:52)
[2018-02-25] MEDS: Magnesium Hydroxide LIQ* 30 ML UDC PO PRN ×4 (08:57→21:08)
--- NOTE | 2018-02-25 08:59 | PN ---
Subjective Date of Service: 02/25/18 Interval History: Very upbeat today. Very appreciative. +nausea persists Still no BM, did not get MOM yesterday at all appetite goo, no pain Family History: Unchanged from Admission Social History: Unchanged from Admission Past Medical History: Unchanged from Admission Objective Active Medications: Acetaminophen (Tylenol Tab*) 650 mg PO Q4H PRN PRN Reason: FEVER/PAIN Al Hydrox/Mg Hydrox/Simethicone (Maalox Plus*) 30 ml PO Q6H PRN PRN Reason: INDIGESTION Albuterol (Ventolin 2.5 Mg/3 Ml Neb.Samreen*) 2.5 mg INH [id number] AWAKE PRN PRN Reason: sob/wheezing Albuterol (Ventolin Hfa Inhaler*) 2 puff INH Q4H PRN PRN Reason: SOB/WHEEZING Apixaban (Eliquis*) 5 mg PO BID [facility] Last Admin: 02/25/18 07:37 Dose: 5 mg Bisacodyl (Dulcolax Supp*) 10 mg [place] ONCE PRN PRN Reason: CONSTIPATION Cholecalciferol (Vitamin D Tab*) 2,000 units PO QAM [facility] Last Admin: 02/25/18 07:37 Dose: 2,000 units Cyanocobalamin (Vitamin B12 Tab*) 1,000 mcg PO DAILY [facility] Last Admin: 02/25/18 07:37 Dose: 1,000 mcg Docusate Sodium (Colace Cap*) 100 mg PO BID [facility] Last Admin: 02/25/18 07:35 Dose: 100 mg Dofetilide (Tikosyn Cap*) 500 mcg PO BID [facility] Last Admin: 02/25/18 07:36 Dose: 500 mcg Duloxetine HCl (Cymbalta Cap*) 30 mg PO 1700 [facility] Last Admin: 02/24/18 17:19 Dose: 30 mg Famotidine (Pepcid Tab*) 40 mg PO QPM [facility]; Protocol Last Admin: 02/24/18 17:20 Dose: 40 mg Gabapentin (Neurontin Cap(*)) 400 mg PO QPM [facility] Last Admin: 02/24/18 17:16 Dose: 400 mg Gabapentin (Neurontin Cap(*)) 600 mg PO QAM [facility] Last Admin: 02/25/18 07:36 Dose: 600 mg Hydralazine HCl (Apresoline Tab*) 10 mg PO TID [facility] Last Admin: 02/25/18 07:38 Dose: 10 mg Hydromorphone HCl (Dilaudid Tab*) 4 mg PO Q4HR [facility] Last Admin: 02/25/18 05:59 Dose: 4 mg Hydroxychloroquine Sulfate (Plaquenil Tab*) 200 mg PO BID [facility] Last Admin: 02/25/18 07:37 Dose: 200 mg Levothyroxine Sodium (Synthroid Tab*) 137 mcg PO DAILY@0600 [facility] Last Admin: 02/25/18 05:59 Dose: 137 mcg Losartan Potassium (Cozaar Tab*) 100 mg PO QPM [facility]; Protocol Last Admin: 02/24/18 17:18 Dose: 100 mg Magnesium Hydroxide (Milk Of Magnharoon Liq*) 30 ml PO Q4H PRN PRN Reason: CONSTIPATION Mometasone Furoate/Formoterol Fumar (Dulera 100/5 Mdi*) 2 puff INH BID PRN PRN Reason: SOB/WHEEZING Montelukast Sodium (Singulair Tab*) 10 mg PO QAM [facility] Last Admin: 02/25/18 07:38 Dose: 10 mg Ondansetron HCl (Zofran Inj*) 4 mg IV Q4H PRN PRN Reason: NAUSEA/VOMITING Last Admin: 02/25/18 08:00 Dose: 4 mg Oxycodone/Acetaminophen (Percocet 5/325 Tab*) 2 tab PO Q4H PRN PRN Reason: Pain Last Admin: 02/25/18 07:38 Dose: 2 tab Polyethylene Glycol/Electrolytes (Miralax*) 17 gm PO DAILY [facility] Last Admin: 02/25/18 07:39 Dose: 17 gm Senna (Senokot Tab*) 2 tab PO BEDTIME [facility] Last Admin: 02/24/18 22:35 Dose: 2 tab Sodium Chloride (Sodium Chloride Tab*) 1 gm PO QID [facility] Last Admin: 02/25/18 07:37 Dose: 1 gm Vital Signs - 8 hr 02/25/18 02/25/18 02/25/18 02:50 02:52 03:43 Temperature 98.1 F Pulse Rate 44 Respiratory 18 18 16 Rate Blood Pressure 176/69 (mmHg) O2 Sat by Pulse 98 Oximetry 02/25/18 02/25/18 02/25/18 04:00 05:27 05:59 Temperature Pulse Rate 51 Respiratory 16 18 Rate Blood Pressure (mmHg) O2 Sat by Pulse Oximetry 02/25/18 02/25/18 02/25/18 07:17 07:36 07:38 Temperature 98.2 F Pulse Rate 49 Respiratory 17 16 16 Rate Blood Pressure 170/66 (mmHg) O2 Sat by Pulse 98 Oximetry Oxygen Devices in Use Now: None Appearance: sitting in chair, eating bfast, NAD Eyes: No Scleral Icterus, PERRLA Ears/Nose/Mouth/Throat: NL Teeth, Lips, Gums, Clear Oropharnyx Neck: NL Appearance and Movements; NL JVP Respiratory: Symmetrical Chest Expansion and Respiratory Effort, Clear to Auscultation Cardiovascular: RRR, - - 2-3/6 EMMY Abdominal: NL Sounds; No Tenderness; No Distention, No Hepatosplenomegaly Lymphatic: No Cervical Adenopathy Extremities: - - 2+ LE edema Result Diagrams: 02/25/18 06:13 02/25/18 06:13 Additional Lab and Data: . Laboratory Tests 02/20/18 02/20/18 09:07 10:41 Urine Opiates Screen Presumptive positive A Serum Alcohol 173 H Assess/Plan/Problems-Billing . Assessment: 77 yo woman with h/o s/p AVR, afib on AC, CHF, depression, chronic pain p/w severe back pain and SI in the setting of alcohol intoxication found with hyponatremia - Patient Problems (1) Bradycardia Comment: check EKG 02/25 she has been told by Dr. Hampton that she has "slow HR" and PPM would not be good option now (per patient). (2) Hyponatremia with increased serum osmolality Comment: - multifactoral - etoh, medications, constipation, pain - suspect SIADH - received IVF on admisison with resultant decline in serum sodium - increase NaCl tabs from TID to QID - fluid restriction increased now - 800cc/24hrs - repeated urine Na, Cl, K and Osm - still c/w SIADH before diuretic initiated -dosed lasix 20mg PO 02/23 and again 02/24 - with slow increase in Serum Na. Hold 02/25 and eval 02/26. -trend labs -consider tolvaptan if no improvement (3) Alcohol abuse Comment: and patient endorse recent alcohol use in effort "to treat her pain" but deny abuse Has not required WAM/benzos Monitor (4) Aortic stenosis Comment: s/p AVR (5) Chronic pain Comment: Continue prn dilaudid 4mg po q4hr Percocet (1 or 2) Q4 prn was on long acting as outpatient. Recently discharged from pain clinic Well controlled currently (6) Depression Comment: Appreciate psychiatry consult SNRI dose increased (7) Intractable back pain Comment: - avoid IV agents - consulted neurosurgery 02/22 -appreciate consultation - conservative management (8) Suicidal behavior with attempted self-injury Comment: - please refer to psychiatry notes; etoh involved -- (pt drank bottle of wine and expressed not wanting to wake up); patient now denies SI. -not suspected risk to self at the moment (9) Thrombocytopenia Comment: monitor decreased slightly today 02/25 (10) Hypertension Comment: increased losartan from 50 to 100mg 02/22 increase hydralazine PO from BID to TID on 02/24 Monitor 02/25. Increased dose of hydralazine has not had time to work yet (11) Afib Comment: Pt currently in NSR. Continue tikosyn and eliquis. Status and Disposition: inpt for tx of hyponatremia
--- NOTE | 2018-02-25 16:53 | CONS ---
CC: Dr. Reji Hampton; Dr. Ernst Terry CARDIOLOGY CONSULTATION: DATE OF CONSULT: 02/25/18 REFERRING PHYSICIAN: Dr. Fito Urrutia. REASON FOR CARDIOLOGY CONSULTATION: Bradycardia in a patient with a history of atrial fibrillation. HISTORY OF PRESENT ILLNESS: Ms. Gusman is a 77-year-old woman admitted to [facility] on 02/20/18 with suicidal ideation, acute alcohol intoxication, chronic pain, and hyponatremia. She does have a history of atrial fibrillation for which she is on Tikosyn. The patient had a 12 lead EKG checked today as her pulse was noted to be slow, which showed that she was in a high junctional rhythm in the 40s and that was confirmed after she was subsequently placed on telemetry. The patient is accompanied by her with her verbal consent. She herself denies fainting or palpation. She denies chest pain. She does have chronic shortness of breath at least for the past few weeks. PAST CARDIAC HISTORY: Includes atrial fibrillation for which she is on chronic anticoagulation and she was placed on Tikosyn since September 2016 for maintenance of sinus rhythm. She also has a history of moderate-to- severe aortic stenosis and is followed by my partner Dr. Reji Hampton. Echocardiogram completed in January [address] Hampton's office shows normal left ventricular ejection fraction of 60% with nauagdxg-ou-zqemkd aortic stenosis, mean gradient 33 mmHg, moderate tricuspid regurgitation with [id number] pulmonary hypertension. PAST MEDICAL HISTORY: includes history of hypertension, psoriatic arthritis, hypothyroidism, chronic pain after having had a horse riding accident in the mid 1970s, and she has had multiple orthopedic surgeries including bilateral knee replacements, right elbow replacement, left ankle replacement, and rods in her arm. She also has a history of chronic headaches, arachnoiditis, staph infection with MRSA in the past, eosinophillic bronchitis, hyperlipidemia, GERD. OUTPATIENT MEDICATIONS: 1. Albuterol. 2. Ventolin 2 puffs q. 4 hours. 3. Eliquis 5 mg p.o. b.i.d. 4. Vitamin D 2000 units. 5. Vitamin B12 1000 mcg once a day. 6. Tikosyn 500 mcg p.o. b.i.d. 7. Neurontin 600 mg in the morning, 400 mg in the evening. 8. Hydralazine 10 mg p.o. b.i.d. 9. Hydromorphone extended release 12 mg p.o. b.i.d. 10. Dilaudid p.r.n. 11. Plaquenil 200 mg p.o. b.i.d. 12. Probiotic. 13. Synthroid 137 mcg once a day. 14. Dulera 2 puffs b.i.d. 15. Singulair 10 mg once a day. 16. Zantac 300 mg p.o. q.h.s. 17. Micardis 40 mg once a day. ALLERGIES TO MEDICATIONS: Multiple including CELECOXIB, METHOTREXATE, VANCOMYCIN, CHLORHEXIDINE, and ADHESIVE. FAMILY HISTORY: Significant for cardiac disease. The patient denies family history of stroke, cancer, or diabetes. SOCIAL HISTORY: The patient has been for 35 years. 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 She does not smoke cigarettes. She is an alcoholic, but have been abstinent for a year and then recently had a relapse with acute alcohol intoxication on the day of her admission with suicidal ideation. She denies drug use. She is not able to do regular exercise because of her severe chronic pain. REVIEW OF SYSTEMS: She denies personal history of stroke. She has had right breast cancer with mastectomy 3 to 4 years ago, status post radiation therapy, followed by Dr. Morris. She denies vomiting blood, coughing up blood, bright red blood per rectum, bleeding stomach ulcers, renal calculi, cholelithiasis, asthma , emphysema. She has had pneumonia from chronic eosinophilic bronchitis requiring hospitalization. She does have a history of sleep apnea, but is unable to tolerate positive pressure ventilation. She does not use home oxygen. She denies diabetes. She has a history of hypertension. She denies prior CA. She was told recently she had congestive heart failure. She does have fgubwode-iu-fmisgj aortic stenosis. She denies cardiac surgeries. She does not have a heart murmur. She denies palpations since beginning Tikosyn in September 2016. She has a history of depression. She denies lupus. She does have a history of psoriasis with psoriatic arthritis. She does have chronic pain, which she ranks as 8/10 and is quite debilitating. She has a history of hypothyroidism. She denies liver disorders, kidney disorders, claudication symptoms. She does have lower extremity edema for the past few months. She denies pulmonary emboli, deep venous thrombosis, peripheral arterial disease. She does have a history of GERD. Other review of systems negative x14 except as described above. PHYSICAL EXAM: Height 5 feet 3 inches, weight 181 pounds, temperature 98.1 degrees Fahrenheit, pulse is 46, blood pressure 171/67. On general exam, she is a sad- appearing lady in no acute distress with chronic deforming changes from her psoriatic arthritis and prior surgeries. HEENT shows the cranium is normocephalic and atraumatic. She has moist mucosal membranes. Neck veins are not distended. There is a referred murmur to her left carotid artery. No clear bruit. Visible skin, warm, and perfused. Mild kyphoscoliosis on back exam. Skin exam appears relatively benign. Lungs are clear to auscultation. No wheezes, no rales. Cardiac Exam: S1, S2. Regular rate. A 2/6 systolic ejection murmur heard without radiation; A2 is soft. There is no rub or gallop. PMI is nondisplaced. Abdomen: Soft, nondistended, appears benign. Extremities with 1+ peripheral edema. Pulses appear grossly intact. DIAGNOSTIC STUDIES/LAB DATA: A 12-lead EKG completed on 02/25/18 at 9:49 a.m. shows what appears to be a high junctional rhythm at 46 beats per minute with an incomplete right bundle branch block and old anteroseptal CA. When compared to prior EKG completed on 01/17/17 prior sinus bradycardia noted. White blood cell count 2.8, hematocrit 35, platelet count 120. Her sodium is 122, had been as low as 117; potassium 4.3; chloride 93; bicarbonate 21; BUN 7, creatinine 0.51. Calcium 8.3. TSH 3.54. IMPRESSION: Ms. Gusman is a 77-year-old woman with a history of paroxysmal atrial fibrillation, being managed with Tikosyn, now admitted with suicidal ideation with excessive alcohol drinking and severe hyponatremia, who was found to have a high junctional rhythm on EKG with bradycardia. She does not appear particularly symptomatic with her bradycardia. 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 calcific infiltration of the AV [place] apparatus, promotingher bradyarrhythmia in addition to her hyponatremia, chronic pain with high vagal tone, and required use of narcotics also promoting her bradyarrhythmia. RECOMMENDATIONS: I have discussed this in detail with the patient and her and I am making the following recommendations with which they are in agreement. 1. For now, we will decrease her Tikosyn to 250 mcg p.o. q. 12 hours, but I am hesitating to stop it as there is concern that she will recur with her atrial fibrillation. Continue treating pain, hyponatremia, and her heart rate should gradually increase regarding her asymptomatic bradycardia at this time with a high junctional rhythm. There does not appear to be a clear indication for pacemaker placement at this time. 2. Further management of this per the hospitalist medicine service and I have discussed the case with Dr. Urrutia as well. 3. The patient should continue to follow up with Dr. Hampton as an outpatient. Dear Dr. Fito Urrutia, many thanks for asking me to participate in the cardiovascular consultative care of Ms. Gusman. Please do not hesitate to contact me if you have any questions or concerns regarding the patient's cardiovascular consultative care. [id number]/[facility] #: [id number] NISHA
[2018-02-25] MEDS: amLODIPine TAB* 5 MG PO SCH (17:03)
[2018-02-25] MEDS: Losartan TAB* 25 MG PO SCH (17:03)
[2018-02-25] MEDS: DULoxetine DR CAP* 30 MG CAP.DR PO SCH (17:04)
[2018-02-25] MEDS: Gabapentin CAP(*) 400 MG PO SCH (17:04)
[2018-02-25] MEDS: Famotidine TAB* 20 MG PO SCH (17:05)
[2018-02-25] MEDS ORDERED: Dofetilide CAP* 250 MCG PO SCH (21:00)
[2018-02-25] MEDS: Senna TAB PO SCH (21:03)
[2018-02-25] MEDS: Dofetilide CAP* 250 MCG PO SCH (22:17)
[2018-02-26] MEDS: oxyCODONE/Acetamin 5/325 MG* TAB PO PRN ×5 (01:06→23:41)
[2018-02-26] MEDS: HYDROmorphone TAB* 4 MG PO SCH ×6 (02:05→21:44)
[2018-02-26] MEDS: Ondansetron INJ* 2 MG/ML VIAL IV PRN ×3 (04:05→21:37)
[2018-02-26] MEDS: Levothyroxine TAB* 137 MCG TAB PO SCH (06:03)
[2018-02-26 07:41] LABS: ABS Basophils 0 10^3/ul (0-0.2); ABS Eosinophils 0.1 10^3/ul (0-0.6); ABS Monocytes 0.4 10^3/ul (0-0.8); ABS Neutrophils 2.5 10^3/ul (1.5-7.7); ABS Nucleated RBC 0 10^3/ul; Eosinophil % 3.2 % (0-6); Hematocrit 36 % (35-47); Hemoglobin 12.2 g/dl (12.0-16.0); Lymphocyte % 24.4 % (25-47); Mean Corpuscular HGB Conc 34 g/dl (31-36); Mean Corpuscular Hemoglobin 31 pg (27-31); Mean Corpuscular Volume 91 fL (80-97); Mean Platelet Volume 7.4 um3 (7.4-10.4); Nucleated Red Blood Cells % 0.1; Platelet Count 113 10^3/ul (150-450); Red Blood Count 3.96 10^6/ul (4.00-5.40); Red Cell Distribution Width 15 % (10.5-15)
[2018-02-26 07:44] LABS: EGFR Non-African American 114.3 (>60)
[2018-02-26] MEDS: Gabapentin CAP(*) 300 MG PO SCH (08:44)
[2018-02-26] MEDS: Hydroxychloroquine TAB* 200 MG PO SCH ×2 (08:45→21:39)
[2018-02-26] MEDS: hydrALAZINE TAB* 10 MG PO SCH ×3 (08:45→21:43)
[2018-02-26] MEDS: Cholecalciferol TAB* 1000 UNITS PO SCH (08:46)
[2018-02-26] MEDS: Sodium Chloride TAB* 1 GM PO SCH ×4 (08:46→21:41)
[2018-02-26] MEDS: Docusate CAP* 100 MG PO SCH ×2 (08:46→21:41)
[2018-02-26] MEDS: amLODIPine TAB* 5 MG PO SCH (08:46)
[2018-02-26] MEDS: Apixaban* 5 MG TAB PO SCH ×2 (08:47→21:41)
[2018-02-26] MEDS: Dofetilide CAP* 250 MCG PO SCH ×2 (08:47→21:41)
[2018-02-26] MEDS: Polyethylene Glycol 3350* 17 GM PACKET PO SCH (08:48)
[2018-02-26] MEDS: Cyanocobalamin TAB* 500 MCG PO SCH (08:48)
[2018-02-26] MEDS: Montelukast Sodium TAB* 10 MG PO SCH (08:48)
[2018-02-26] MEDS ORDERED: Calcium CHLORIDE 10% SYRINGE* 1 GM in D5W 100 ML BAG* 100 ML IV ONE (09:00)
[2018-02-26] MEDS ORDERED: Furosemide TAB* 20 MG PO ONE (13:56)
[2018-02-26] MEDS: Gabapentin CAP(*) 400 MG PO SCH ×2 (14:11→21:42)
--- NOTE | 2018-02-26 14:13 | PN ---
Subjective Date of Service: 02/26/18 Interval History: Pt seen and examined. Meds and labs reviewed. Per RN pt had two good bowel movements per day but pt mentioned it took her a week to really have good bowel movement. Requests additional PRN meds ROS: Frequent constipation. 02/21 Chronic back pain. Denied SHER/dizziness, F/C, N/V, CP, SOB, increased cough, sputum production, abd pain, diarrhea, constipation, dysuria, myalgias, arthralgias, throat pain, and new skin lesions. The rest of the 14 point ROS are unremarkable. PHYSICAL EXAM: GEN APPEARANCE: Awake, not in acute distress HEENT: NC/AT, PERRLA, moist oral mucosa, (-) throat erythema NECK: Soft, supple, (-) cervical LAD, (-)JVD HEART: 4/6 murmur, WNL, RRR, No MRG CHEST: CTA, BL, GAE, No W/R/R ABD: Soft, ND/NT, NABS 4x Q EXT: No C/C/E SKIN: Warm to touch PSYCH: No active psychosis, hallucinations, depression, SI/HI Family History: Unchanged from Admission Social History: Unchanged from Admission Past Medical History: Unchanged from Admission Objective Active Medications: Acetaminophen (Tylenol Tab*) 650 mg PO Q4H PRN PRN Reason: FEVER/PAIN Acetaminophen (Tylenol Tab*) 975 mg PO BID [facility] Al Hydrox/Mg Hydrox/Simethicone (Maalox Plus*) 30 ml PO Q6H PRN PRN Reason: INDIGESTION Albuterol (Ventolin 2.5 Mg/3 Ml Neb.Samreen*) 2.5 mg INH RT.[id number] AWAKE PRN PRN Reason: sob/wheezing Albuterol (Ventolin Hfa Inhaler*) 2 puff INH Q4H PRN PRN Reason: SOB/WHEEZING Amlodipine Besylate (Norvasc Tab*) 10 mg PO DAILY [facility] Last Admin: 02/26/18 08:46 Dose: 10 mg Apixaban (Eliquis*) 5 mg PO BID [facility] Last Admin: 02/26/18 08:47 Dose: 5 mg Bisacodyl (Dulcolax Supp*) 10 mg NM ONCE PRN PRN Reason: CONSTIPATION Cholecalciferol (Vitamin D Tab*) 2,000 units PO QAM [facility] Last Admin: 02/26/18 08:46 Dose: 2,000 units Cyanocobalamin (Vitamin B12 Tab*) 1,000 mcg PO DAILY [facility] Last Admin: 02/26/18 08:48 Dose: 1,000 mcg Docusate Sodium (Colace Cap*) 100 mg PO BID [facility] Last Admin: 02/26/18 08:46 Dose: 100 mg Dofetilide (Tikosyn Cap*) 250 mcg PO Q12HR [facility] Last Admin: 02/26/18 08:47 Dose: 250 mcg Duloxetine HCl (Cymbalta Cap*) 30 mg PO 1700 [facility] Last Admin: 02/25/18 17:04 Dose: 30 mg Famotidine (Pepcid Tab*) 40 mg PO QPM [facility]; Protocol Last Admin: 02/25/18 17:05 Dose: 40 mg Gabapentin (Neurontin Cap(*)) 400 mg PO TID [facility] Hydralazine HCl (Apresoline Tab*) 10 mg PO TID [facility] Last Admin: 02/26/18 08:45 Dose: 10 mg Hydromorphone HCl (Dilaudid Tab*) 4 mg PO Q4HR [facility] Last Admin: 02/26/18 09:36 Dose: 4 mg Hydroxychloroquine Sulfate (Plaquenil Tab*) 200 mg PO BID [facility] Last Admin: 02/26/18 08:45 Dose: 200 mg Lactulose (Lactulose*) 40 ml PO Q72H PRN PRN Reason: CONSTIPATION Levothyroxine Sodium (Synthroid Tab*) 137 mcg PO DAILY@0600 [facility] Last Admin: 02/26/18 06:03 Dose: 137 mcg Losartan Potassium (Cozaar Tab*) 100 mg PO QPM [facility]; Protocol Last Admin: 02/25/18 17:03 Dose: 100 mg Magnesium Hydroxide (Milk Of Magnesia Liq*) 30 ml PO Q4H PRN PRN Reason: CONSTIPATION Last Admin: 02/25/18 21:08 Dose: 30 ml Mometasone Furoate/Formoterol Fumar (Dulera 100/5 Mdi*) 2 puff INH BID PRN PRN Reason: SOB/WHEEZING Montelukast Sodium (Singulair Tab*) 10 mg PO QAM [facility] Last Admin: 02/26/18 08:48 Dose: 10 mg Ondansetron HCl (Zofran Inj*) 4 mg IV Q4H PRN PRN Reason: NAUSEA/VOMITING Last Admin: 02/26/18 09:27 Dose: 4 mg Oxycodone/Acetaminophen (Percocet 5/325 Tab*) 2 tab PO Q4H PRN PRN Reason: Pain Last Admin: 02/26/18 12:35 Dose: 2 tab Polyethylene Glycol/Electrolytes (Miralax*) 17 gm PO DAILY [facility] Last Admin: 02/26/18 08:48 Dose: 17 gm Senna (Senokot Tab*) 2 tab PO BEDTIME [facility] Last Admin: 02/25/18 21:03 Dose: 2 tab Sodium Chloride (Sodium Chloride Tab*) 1 gm PO QID [facility] Last Admin: 02/26/18 12:36 Dose: 1 gm Vital Signs - 8 hr 02/26/18 02/26/18 02/26/18 07:16 08:00 08:40 Temperature 97.6 F Pulse Rate 46 Respiratory 16 16 16 Rate Blood Pressure 152/65 (mmHg) O2 Sat by Pulse 94 Oximetry 02/26/18 02/26/18 02/26/18 08:44 08:45 09:36 Temperature Pulse Rate Respiratory 14 15 16 Rate Blood Pressure (mmHg) O2 Sat by Pulse Oximetry 02/26/18 02/26/18 02/26/18 11:13 12:10 12:35 Temperature 97.9 F Pulse Rate 44 Respiratory 16 16 16 Rate Blood Pressure 135/55 (mmHg) O2 Sat by Pulse 98 Oximetry Oxygen Devices in Use Now: None Result Diagrams: 02/26/18 07:07 02/26/18 07:07 Additional Lab and Data: . Laboratory Tests 02/20/18 02/20/18 09:07 10:41 Urine Opiates Screen Presumptive positive A Serum Alcohol 173 H Assess/Plan/Problems-Billing . Assessment: 77 yo woman with h/o s/p AVR, afib on AC, CHF, depression, chronic pain p/w severe back pain and SI in the setting of alcohol intoxication found with hyponatremia - Patient Problems (1) Bradycardia Current Visit: Yes Status: Acute Code(s): R00.1 - BRADYCARDIA, UNSPECIFIED SNOMED Code(s): 70249823 Comment: -Junctional rhythm with bradycardia -Continue lowered dose of Tikosyn for now and cards will re-evaluate tomorrow -No indication for pacemaker at this time -Discussed with Dr. Hatfield (2) Hyponatremia Current Visit: Yes Status: Acute Code(s): E87.1 - HYPO-OSMOLALITY AND HYPONATREMIA SNOMED Code(s): 82103274 Comment: - multifactoral - etoh, medications, constipation, pain - suspect SIADH - received IVF on admisison with resultant decline in serum sodium -Continue NaCl tabs from TID to QID -Continue fluid restriction -Will redose with Lasix PO x1 -trend labs (3) Constipation Current Visit: Yes Status: Acute Code(s): K59.00 - CONSTIPATION, UNSPECIFIED SNOMED Code(s): 59190693 Comment: -Continue Senna, Colace, and Miralax -Will place pt on PRN Lactulose q72H (4) Alcohol abuse Current Visit: Yes Status: Acute Priority: High Code(s): F10.10 - ALCOHOL ABUSE, UNCOMPLICATED SNOMED Code(s): 90365758 Comment: and patient endorse recent alcohol use in effort "to treat her pain" but deny abuse Has not required WAM/benzos Monitor (5) Aortic stenosis Current Visit: Yes Status: Chronic Code(s): I35.0 - NONRHEUMATIC AORTIC ( VALVE) STENOSIS SNOMED Code(s): 99185781 Comment: s/p AVR (6) Chronic pain Current Visit: Yes Status: Chronic Priority: High Code(s): G89.29 - OTHER CHRONIC PAIN SNOMED Code(s): 31847434 Comment: -Continue prn dilaudid 4mg po q4hr -Percocet (1 or 2) Q4 prn was on long acting as outpatient. Recently discharged from -D/C previous Gabapentin orders and place pt on 400 mg PO TID of Gabapentin -Will place pt on scheduled Tylenol with max of 3.5 g/day - consulted neurosurgery 02/22 for intractable back pain -appreciate consultation - conservative management (7) Depression Current Visit: Yes Status: Acute Priority: High Code(s): F32.9 - MAJOR DEPRESSIVE DISORDER, SINGLE EPISODE, UNSPECIFIED SNOMED Code(s): 62692291 Comment: -Appreciate psychiatry consultto f/u with outpatient psychotherapy -Continue SNRI (8) Suicidal behavior with attempted self-injury Current Visit: Yes Status: Acute Priority: High Code(s): T14.91XA - SUICIDE ATTEMPT, INITIAL ENCOUNTER SNOMED Code(s): 190801780 Comment: - please refer to psychiatry notes; etoh involved -- (pt drank bottle of wine and expressed not wanting to wake up); patient now denies SI. -not suspected risk to self at the moment (9) Thrombocytopenia Current Visit: Yes Status: Acute Code(s): D69.6 - THROMBOCYTOPENIA, UNSPECIFIED SNOMED Code(s): 992520857 Comment: monitor decreased slightly today 02/25 (10) Hypertension Current Visit: Yes Status: Acute Code(s): I10 - ESSENTIAL (PRIMARY) HYPERTENSION SNOMED Code(s): 57783312 Comment: increased losartan from 50 to 100mg 02/22 increase hydralazine PO from BID to TID on 02/24 Monitor 02/25. Increased dose of hydralazine has not had time to work yet (11) Afib Current Visit: Yes Status: Chronic Code(s): I48.91 - UNSPECIFIED ATRIAL FIBRILLATION SNOMED Code(s): 53193001 Comment: Pt currently in NSR. Continue tikosyn and eliquis. (12) DVT prophylaxis Current Visit: Yes Status: Acute Code(s): KUE7841 - SNOMED Code(s): 257153541 Comment: -On Eliquis Status and Disposition: inpt for tx of hyponatremia -For PT eval
[2018-02-26] MEDS: Famotidine TAB* 20 MG PO SCH (17:12)
[2018-02-26] MEDS: Losartan TAB* 25 MG PO SCH (17:13)
[2018-02-26] MEDS: DULoxetine DR CAP* 30 MG CAP.DR PO SCH (17:13)
[2018-02-26] MEDS: Acetaminophen TAB* 325 MG PO SCH (21:40)
[2018-02-26] MEDS: Senna TAB PO SCH (21:42)
[2018-02-27] MEDS: HYDROmorphone TAB* 4 MG PO SCH ×3 (01:58→10:06)
[2018-02-27] MEDS: oxyCODONE/Acetamin 5/325 MG* TAB PO PRN ×5 (04:25→21:10)
[2018-02-27] MEDS: Levothyroxine TAB* 137 MCG TAB PO SCH (06:19)
[2018-02-27 06:48] LABS: Hematocrit 34 % (35-47); Hemoglobin 11.7 g/dl (12.0-16.0); Mean Corpuscular HGB Conc 34 g/dl (31-36); Mean Corpuscular Hemoglobin 31 pg (27-31); Mean Corpuscular Volume 91 fL (80-97); Platelet Count 122 10^3/ul (150-450); Red Blood Count 3.77 10^6/ul (4.00-5.40); Red Cell Distribution Width 14 % (10.5-15); White Blood Count 3.8 10^3/ul (3.5-10.8)
[2018-02-27 07:04] LABS: EGFR Non-African American 91.6 (>60)
[2018-02-27] MEDS: Docusate CAP* 100 MG PO SCH ×2 (08:28→21:07)
[2018-02-27] MEDS: Acetaminophen TAB* 325 MG PO SCH ×2 (08:28→21:12)
[2018-02-27] MEDS: Sodium Chloride TAB* 1 GM PO SCH ×4 (08:29→21:11)
[2018-02-27] MEDS: Hydroxychloroquine TAB* 200 MG PO SCH ×2 (08:29→21:09)
[2018-02-27] MEDS: Cholecalciferol TAB* 1000 UNITS PO SCH (08:29)
[2018-02-27] MEDS: Dofetilide CAP* 250 MCG PO SCH ×2 (08:30→21:08)
[2018-02-27] MEDS: amLODIPine TAB* 5 MG PO SCH (08:31)
[2018-02-27] MEDS: Gabapentin CAP(*) 400 MG PO SCH ×3 (08:31→21:07)
[2018-02-27] MEDS: Apixaban* 5 MG TAB PO SCH ×2 (08:31→21:07)
[2018-02-27] MEDS: Montelukast Sodium TAB* 10 MG PO SCH (08:32)
[2018-02-27] MEDS: hydrALAZINE TAB* 10 MG PO SCH ×3 (08:32→21:08)
[2018-02-27] MEDS: Cyanocobalamin TAB* 500 MCG PO SCH (08:33)
[2018-02-27] MEDS: Polyethylene Glycol 3350* 17 GM PACKET PO SCH (08:33)
[2018-02-27] MEDS: Ondansetron INJ* 2 MG/ML VIAL IV PRN ×3 (09:14→20:28)
[2018-02-27] MEDS ORDERED: Furosemide TAB* 20 MG PO ONE (14:52)
[2018-02-27] MEDS ORDERED: Lidocaine PATCH 5%* 1 PATCH TRANSDERM SCH (15:00)
--- NOTE | 2018-02-27 15:02 | PN ---
Subjective Date of Service: 02/27/18 Interval History: Pt seen and examined. Meds and labs reviewed. She mentions she recently had another bowel movement and quite pleased that she is no longer constipated and having regular bowel movments. ROS: 8/10 Chronic back pain despite yesterdays changes. Denied SHER/dizziness, F /C, N/V, CP, SOB, increased cough, sputum production, abd pain, diarrhea, constipation, dysuria, myalgias, arthralgias, throat pain, and new skin lesions. The rest of the 14 point ROS are unremarkable. PHYSICAL EXAM: GEN APPEARANCE: Awake, not in acute distress HEENT: NC/AT, PERRLA, moist oral mucosa, (-) throat erythema NECK: Soft, supple, (-) cervical LAD, (-)JVD HEART: 4/6 murmur, WNL, RRR, No MRG CHEST: CTA, BL, GAE, No W/R/R ABD: Soft, ND/NT, NABS 4x Q EXT: No C/C/E SKIN: Warm to touch PSYCH: No active psychosis, hallucinations, depression, SI/HI Family History: Unchanged from Admission Social History: Unchanged from Admission Past Medical History: Unchanged from Admission Objective Active Medications: Acetaminophen (Tylenol Tab*) 650 mg PO Q4H PRN PRN Reason: FEVER/PAIN Acetaminophen (Tylenol Tab*) 975 mg PO BID [facility] Last Admin: 02/27/18 08:28 Dose: 975 mg Al Hydrox/Mg Hydrox/Simethicone (Maalox Plus*) 30 ml PO Q6H PRN PRN Reason: INDIGESTION Albuterol (Ventolin 2.5 Mg/3 Ml Neb.Samreen*) 2.5 mg INH [id number] AWAKE PRN PRN Reason: sob/wheezing Albuterol (Ventolin Hfa Inhaler*) 2 puff INH Q4H PRN PRN Reason: SOB/WHEEZING Amlodipine Besylate (Norvasc Tab*) 10 mg PO DAILY [facility] Last Admin: 02/27/18 08:31 Dose: 10 mg Apixaban (Eliquis*) 5 mg PO BID [facility] Last Admin: 02/27/18 08:31 Dose: 5 mg Bisacodyl (Dulcolax Supp*) 10 mg IA ONCE PRN PRN Reason: CONSTIPATION Cholecalciferol (Vitamin D Tab*) 2,000 units PO QAM [facility] Last Admin: 02/27/18 08:29 Dose: 2,000 units Cyanocobalamin (Vitamin B12 Tab*) 1,000 mcg PO DAILY [facility] Last Admin: 02/27/18 08:33 Dose: 1,000 mcg Docusate Sodium (Colace Cap*) 100 mg PO BID [facility] Last Admin: 02/27/18 08:28 Dose: 100 mg Dofetilide (Tikosyn Cap*) 250 mcg PO Q12HR [facility] Last Admin: 02/27/18 08:30 Dose: 250 mcg Duloxetine HCl (Cymbalta Cap*) 30 mg PO 1700 [facility] Last Admin: 02/26/18 17:13 Dose: 30 mg Famotidine (Pepcid Tab*) 40 mg PO QPM [facility]; Protocol Last Admin: 02/26/18 17:12 Dose: 40 mg Furosemide (Lasix Tab*) 20 mg PO ONCE ONE Stop: 02/27/18 14:53 Gabapentin (Neurontin Cap(*)) 400 mg PO TID [facility] Last Admin: 02/27/18 08:31 Dose: 400 mg Hydralazine HCl (Apresoline Tab*) 10 mg PO TID [facility] Last Admin: 02/27/18 08:32 Dose: 10 mg Hydromorphone HCl (Dilaudid Tab*) 4 mg PO Q4H PRN PRN Reason: PAIN Hydroxychloroquine Sulfate (Plaquenil Tab*) 200 mg PO BID [facility] Last Admin: 02/27/18 08:29 Dose: 200 mg Lactulose (Lactulose*) 40 ml PO Q72H PRN PRN Reason: CONSTIPATION Levothyroxine Sodium (Synthroid Tab*) 137 mcg PO DAILY@0600 [facility] Last Admin: 02/27/18 06:19 Dose: 137 mcg Lidocaine (Lidoderm 5% Patch*) 1 patch TRANSDERM .SEE ORDER [facility] Losartan Potassium (Cozaar Tab*) 100 mg PO QPM [facility]; Protocol Last Admin: 02/26/18 17:13 Dose: 100 mg Magnesium Hydroxide (Milk Of Magnesia Liq*) 30 ml PO Q4H PRN PRN Reason: CONSTIPATION Last Admin: 02/25/18 21:08 Dose: 30 ml Mometasone Furoate/Formoterol Fumar (Dulera 100/5 Mdi*) 2 puff INH BID PRN PRN Reason: SOB/WHEEZING Montelukast Sodium (Singulair Tab*) 10 mg PO QAM [facility] Last Admin: 02/27/18 08:32 Dose: 10 mg Ondansetron HCl (Zofran Inj*) 4 mg IV Q4H PRN PRN Reason: NAUSEA/VOMITING Last Admin: 02/27/18 13:32 Dose: 4 mg Oxycodone/Acetaminophen (Percocet 5/325 Tab*) 2 tab PO Q4H PRN PRN Reason: Pain Last Admin: 02/27/18 12:27 Dose: 2 tab Pharmacy Profile Note (Lidocaine Patch Remove*) 1 note N/A 2100 [facility] Polyethylene Glycol/Electrolytes (Miralax*) 17 gm PO DAILY [facility] Last Admin: 02/27/18 08:33 Dose: 17 gm Senna (Senokot Tab*) 2 tab PO BEDTIME [facility] Last Admin: 02/26/18 21:42 Dose: 2 tab Sodium Chloride (Sodium Chloride Tab*) 1 gm PO QID [facility] Last Admin: 02/27/18 12:22 Dose: 1 gm Vital Signs - 8 hr 02/27/18 02/27/18 02/27/18 07:30 08:30 08:31 Temperature 98.0 F Pulse Rate 43 Respiratory 16 16 16 Rate Blood Pressure 155/68 (mmHg) O2 Sat by Pulse 97 Oximetry 02/27/18 02/27/18 02/27/18 08:35 10:06 12:23 Temperature Pulse Rate Respiratory 16 16 17 Rate Blood Pressure (mmHg) O2 Sat by Pulse Oximetry 02/27/18 02/27/18 12:24 12:27 Temperature Pulse Rate Respiratory 17 17 Rate Blood Pressure (mmHg) O2 Sat by Pulse Oximetry Oxygen Devices in Use Now: None Result Diagrams: 02/27/18 06:17 02/27/18 06:17 Additional Lab and Data: . Laboratory Tests 02/20/18 02/20/18 09:07 10:41 Urine Opiates Screen Presumptive positive A Serum Alcohol 173 H Assess/Plan/Problems-Billing . Assessment: 77 yo woman with h/o s/p AVR, afib on AC, CHF, depression, chronic pain p/w severe back pain and SI in the setting of alcohol intoxication found with hyponatremia - Patient Problems (1) Bradycardia Current Visit: Yes Status: Acute Code(s): R00.1 - BRADYCARDIA, UNSPECIFIED SNOMED Code(s): 70143257 Comment: -Junctional rhythm with bradycardia -Continue lowered dose of Tikosyn for now until re-evaluated by Cards -No indication for pacemaker at this time -Discussed with Dr. Hatfield yesterday, however, will await Dr. Muse re- evaluation (2) Hyponatremia Current Visit: Yes Status: Acute Code(s): E87.1 - HYPO-OSMOLALITY AND HYPONATREMIA SNOMED Code(s): 16894878 Comment: -Multifactoral - etoh, medications, constipation, pain -Suspect SIADH - received IVF on admisison with resultant decline in serum sodium -Continue NaCl tabs from TID to QID -Continue fluid restriction -Will redose with Lasix PO x1 -Trend labs (3) Chronic pain Current Visit: Yes Status: Chronic Priority: High Code(s): G89.29 - OTHER CHRONIC PAIN SNOMED Code(s): 80125131 Comment: -Will place on Lidocaine patch -Continue Duloxetine but will not increase dose given bradycardia and junctional rhythmunknwon if this may be contributing to above; will defer with Cardiology services re-eval -Continue prn dilaudid 4mg po q4hr with appropriate holding horders -Percocet (1 or 2) Q4 prn was on long acting as outpatient. Recently discharged from -Continue Gabapentin 400 mg PO TID -Continue on scheduled Tylenol with max of 3.5 g/day - consulted neurosurgery 02/22 for intractable back pain -appreciate consultation - conservative management (4) Constipation Current Visit: Yes Status: Acute Code(s): K59.00 - CONSTIPATION, UNSPECIFIED SNOMED Code(s): 48427243 Comment: -Continue Senna, Colace, and Miralax -Continue PRN Lactulose q72H (5) Alcohol abuse Current Visit: Yes Status: Acute Priority: High Code(s): F10.10 - ALCOHOL ABUSE, UNCOMPLICATED SNOMED Code(s): 77103413 Comment: and patient endorse recent alcohol use in effort "to treat her pain" but deny abuse Has not required WAM/benzos Monitor (6) Aortic stenosis Current Visit: Yes Status: Chronic Code(s): I35.0 - NONRHEUMATIC AORTIC ( VALVE) STENOSIS SNOMED Code(s): 49239400 Comment: s/p AVR (7) Depression Current Visit: Yes Status: Acute Priority: High Code(s): F32.9 - MAJOR DEPRESSIVE DISORDER, SINGLE EPISODE, UNSPECIFIED SNOMED Code(s): 01481154 Comment: -Appreciate psychiatry consultto f/u with outpatient psychotherapy -Continue SNRI (8) Suicidal behavior with attempted self-injury Current Visit: Yes Status: Acute Priority: High Code(s): T14.91XA - SUICIDE ATTEMPT, INITIAL ENCOUNTER SNOMED Code(s): 284425542 Comment: - please refer to psychiatry notes; etoh involved -- (pt drank bottle of wine and expressed not wanting to wake up); patient now denies SI. -not suspected risk to self at the moment (9) Thrombocytopenia Current Visit: Yes Status: Acute Code(s): D69.6 - THROMBOCYTOPENIA, UNSPECIFIED SNOMED Code(s): 662015795 Comment: monitor decreased slightly today 02/25 (10) Hypertension Current Visit: Yes Status: Acute Code(s): I10 - ESSENTIAL (PRIMARY) HYPERTENSION SNOMED Code(s): 25400503 Comment: increased losartan from 50 to 100mg 02/22 increase hydralazine PO from BID to TID on 02/24 Monitor 02/25. Increased dose of hydralazine has not had time to work yet (11) Afib Current Visit: Yes Status: Chronic Code(s): I48.91 - UNSPECIFIED ATRIAL FIBRILLATION SNOMED Code(s): 45394446 Comment: Pt currently in NSR. Continue tikosyn and eliquis. (12) DVT prophylaxis Current Visit: Yes Status: Acute Code(s): JWT4447 - SNOMED Code(s): 058939128 Comment: -On Eliquis Status and Disposition: -Inpt for tx of hyponatremia and junctional bradycardia -D/C home when ready
[2018-02-27] MEDS: HYDROmorphone TAB* 4 MG PO PRN ×3 (15:12→22:23)
[2018-02-27] MEDS: DULoxetine DR CAP* 30 MG CAP.DR PO SCH (17:01)
[2018-02-27] MEDS: Losartan TAB* 25 MG PO SCH (17:01)
[2018-02-27] MEDS: Famotidine TAB* 20 MG PO SCH (17:01)
[2018-02-27] MEDS: Senna TAB PO SCH (21:09)
[2018-02-27] MEDS: Lidocaine Patch REMOVE* 1 NOTE MISC SCH (21:12)
[2018-02-28] MEDS: oxyCODONE/Acetamin 5/325 MG* TAB PO PRN ×5 (00:59→18:01)
[2018-02-28] MEDS: HYDROmorphone TAB* 4 MG PO PRN ×5 (03:16→20:24)
[2018-02-28] MEDS: Levothyroxine TAB* 137 MCG TAB PO SCH (05:15)
[2018-02-28] MEDS: Montelukast Sodium TAB* 10 MG PO SCH (09:35)
[2018-02-28] MEDS: Ondansetron INJ* 2 MG/ML VIAL IV PRN ×2 (09:36→21:41)
[2018-02-28] MEDS: Acetaminophen TAB* 325 MG PO SCH ×2 (09:39→20:21)
[2018-02-28] MEDS: Cholecalciferol TAB* 1000 UNITS PO SCH (09:40)
[2018-02-28] MEDS: amLODIPine TAB* 5 MG PO SCH (09:41)
[2018-02-28] MEDS: Apixaban* 5 MG TAB PO SCH ×2 (09:41→20:22)
[2018-02-28] MEDS: hydrALAZINE TAB* 10 MG PO SCH ×3 (09:41→20:24)
[2018-02-28] MEDS: Cyanocobalamin TAB* 500 MCG PO SCH (09:41)
[2018-02-28] MEDS: Gabapentin CAP(*) 400 MG PO SCH ×3 (09:42→20:23)
[2018-02-28] MEDS: Dofetilide CAP* 250 MCG PO SCH ×2 (09:42→20:21)
[2018-02-28] MEDS: Docusate CAP* 100 MG PO SCH ×2 (09:42→20:24)
[2018-02-28] MEDS: Hydroxychloroquine TAB* 200 MG PO SCH ×2 (09:43→20:23)
[2018-02-28] MEDS: Sodium Chloride TAB* 1 GM PO SCH ×4 (09:43→20:21)
[2018-02-28] MEDS: Polyethylene Glycol 3350* 17 GM PACKET PO SCH (09:47)
[2018-02-28] MEDS ORDERED: Furosemide TAB* 20 MG PO ONE (11:36)
--- NOTE | 2018-02-28 11:39 | PN ---
Subjective Date of Service: 02/28/18 Interval History: Pt seen and examined. Meds and labs reviewed. She mentions she recently had another bowel movement and quite pleased that she is no longer constipated and having regular bowel movments. ROS: 8/10 Chronic back pain, chronic. Pt feels nauseated today. Denied SHER/ dizziness, F/C, vomiting, CP, SOB, increased cough, sputum production, abd pain , diarrhea, constipation, dysuria, myalgias, arthralgias, throat pain, and new skin lesions. The rest of the 14 point ROS are unremarkable. PHYSICAL EXAM: GEN APPEARANCE: Awake, not in acute distress HEENT: NC/AT, PERRLA, moist oral mucosa, (-) throat erythema NECK: Soft, supple, (-) cervical LAD, (-)JVD HEART: 4/6 murmur, WNL, RRR, No MRG CHEST: CTA, BL, GAE, No W/R/R ABD: Soft, ND/NT, NABS 4x Q EXT: No C/C/E SKIN: Warm to touch Family History: Unchanged from Admission Social History: Unchanged from Admission Past Medical History: Unchanged from Admission Objective Active Medications: Acetaminophen (Tylenol Tab*) 650 mg PO Q4H PRN PRN Reason: FEVER/PAIN Acetaminophen (Tylenol Tab*) 975 mg PO BID [facility] Last Admin: 02/28/18 09:39 Dose: 975 mg Al Hydrox/Mg Hydrox/Simethicone (Maalox Plus*) 30 ml PO Q6H PRN PRN Reason: INDIGESTION Albuterol (Ventolin 2.5 Mg/3 Ml Neb.Samreen*) 2.5 mg INH [id number] AWAKE PRN PRN Reason: sob/wheezing Albuterol (Ventolin Hfa Inhaler*) 2 puff INH Q4H PRN PRN Reason: SOB/WHEEZING Amlodipine Besylate (Norvasc Tab*) 10 mg PO DAILY [facility] Last Admin: 02/28/18 09:41 Dose: 10 mg Apixaban (Eliquis*) 5 mg PO BID [facility] Last Admin: 02/28/18 09:41 Dose: 5 mg Bisacodyl (Dulcolax Supp*) 10 mg OR ONCE PRN PRN Reason: CONSTIPATION Cholecalciferol (Vitamin D Tab*) 2,000 units PO QAM [facility] Last Admin: 02/28/18 09:40 Dose: 2,000 units Cyanocobalamin (Vitamin B12 Tab*) 1,000 mcg PO DAILY [facility] Last Admin: 02/28/18 09:41 Dose: 1,000 mcg Docusate Sodium (Colace Cap*) 100 mg PO BID [facility] Last Admin: 02/28/18 09:42 Dose: 100 mg Dofetilide (Tikosyn Cap*) 250 mcg PO Q12HR [facility] Last Admin: 02/28/18 09:42 Dose: 250 mcg Duloxetine HCl (Cymbalta Cap*) 30 mg PO 1700 [facility] Last Admin: 02/27/18 17:01 Dose: 30 mg Famotidine (Pepcid Tab*) 40 mg PO QPM [facility]; Protocol Last Admin: 02/27/18 17:01 Dose: 40 mg Furosemide (Lasix Tab*) 20 mg PO ONCE ONE Stop: 02/28/18 11:37 Gabapentin (Neurontin Cap(*)) 400 mg PO TID [facility] Last Admin: 02/28/18 09:42 Dose: 400 mg Hydralazine HCl (Apresoline Tab*) 10 mg PO TID [facility] Last Admin: 02/28/18 09:41 Dose: 10 mg Hydromorphone HCl (Dilaudid Tab*) 4 mg PO Q4H PRN PRN Reason: PAIN Last Admin: 02/28/18 06:52 Dose: 4 mg Hydroxychloroquine Sulfate (Plaquenil Tab*) 200 mg PO BID [facility] Last Admin: 02/28/18 09:43 Dose: 200 mg Lactulose (Lactulose*) 40 ml PO Q72H PRN PRN Reason: CONSTIPATION Levothyroxine Sodium (Synthroid Tab*) 137 mcg PO DAILY@0600 [facility] Last Admin: 02/28/18 05:15 Dose: 137 mcg Lidocaine (Lidoderm 5% Patch*) 1 patch TRANSDERM .SEE ORDER [facility] Losartan Potassium (Cozaar Tab*) 100 mg PO QPM [facility]; Protocol Last Admin: 02/27/18 17:01 Dose: 100 mg Magnesium Hydroxide (Milk Of Magnesia Liq*) 30 ml PO Q4H PRN PRN Reason: CONSTIPATION Last Admin: 02/25/18 21:08 Dose: 30 ml Mometasone Furoate/Formoterol Fumar (Dulera 100/5 Mdi*) 2 puff INH BID PRN PRN Reason: SOB/WHEEZING Montelukast Sodium (Singulair Tab*) 10 mg PO QAM [facility] Last Admin: 02/28/18 09:35 Dose: 10 mg Ondansetron HCl (Zofran Inj*) 4 mg IV Q4H PRN PRN Reason: NAUSEA/VOMITING Last Admin: 02/28/18 09:36 Dose: 4 mg Oxycodone/Acetaminophen (Percocet 5/325 Tab*) 2 tab PO Q4H PRN PRN Reason: Pain Last Admin: 02/28/18 09:40 Dose: 2 tab Pharmacy Profile Note (Lidocaine Patch Remove*) 1 note N/A 2100 [facility] Last Admin: 02/27/18 21:12 Dose: Not Given Polyethylene Glycol/Electrolytes (Miralax*) 17 gm PO DAILY [facility] Last Admin: 02/28/18 09:47 Dose: 17 gm Senna (Senokot Tab*) 2 tab PO BEDTIME [facility] Last Admin: 02/27/18 21:09 Dose: 2 tab Sodium Chloride (Sodium Chloride Tab*) 1 gm PO QID [facility] Last Admin: 02/28/18 09:43 Dose: 1 gm Vital Signs - 8 hr 02/28/18 02/28/18 02/28/18 03:54 05:15 05:21 Temperature Pulse Rate Respiratory 18 18 18 Rate Blood Pressure (mmHg) O2 Sat by Pulse Oximetry 02/28/18 02/28/18 02/28/18 06:52 07:45 07:55 Temperature 97.8 F Pulse Rate 46 Respiratory 18 18 18 Rate Blood Pressure 164/63 (mmHg) O2 Sat by Pulse 97 Oximetry 02/28/18 02/28/18 02/28/18 08:00 09:40 09:42 Temperature Pulse Rate Respiratory 16 16 16 Rate Blood Pressure (mmHg) O2 Sat by Pulse Oximetry 02/28/18 11:30 Temperature 98.1 F Pulse Rate 46 Respiratory 17 Rate Blood Pressure 135/52 (mmHg) O2 Sat by Pulse 99 Oximetry Oxygen Devices in Use Now: None Result Diagrams: 02/27/18 06:17 02/27/18 06:17 Additional Lab and Data: . Laboratory Tests 02/20/18 02/20/18 09:07 10:41 Urine Opiates Screen Presumptive positive A Serum Alcohol 173 H Assess/Plan/Problems-Billing . Assessment: 77 yo woman with h/o s/p AVR, afib on AC, CHF, depression, chronic pain p/w severe back pain and SI in the setting of alcohol intoxication found with hyponatremia - Patient Problems (1) Nausea Current Visit: Yes Status: Acute Code(s): R11.0 - NAUSEA SNOMED Code(s): 587237766 Comment: -Likely due to side effects of diluadid -No reports of vomiting -Continue PRN Zofran; will hold off on prochlorperazine and Reglan given junctional bradycardia and polypharmacy -Continue watchful waiting (2) Bradycardia Current Visit: Yes Status: Acute Code(s): R00.1 - BRADYCARDIA, UNSPECIFIED SNOMED Code(s): 60253015 Comment: -Junctional rhythm with bradycardia -Continue lowered dose of Tikosyn for now until re-evaluated by Cardsleft a message to laborer salvage nurse for Dr. Hampton to re-eval per Dr. Hatfields advise -No indication for pacemaker since last seen by Dr. Hatfield---will touch base with Dr. Hampton (3) Hyponatremia Current Visit: Yes Status: Acute Code(s): E87.1 - HYPO-OSMOLALITY AND HYPONATREMIA SNOMED Code(s): 74246507 Comment: -Multifactoral - etoh, medications, constipation, pain -Suspect SIADH - received IVF on admisison with resultant decline in serum sodium -Continues to improve -Continue NaCl tabs from TID to QID -Continue fluid restriction -Will redose with Lasix PO x1 -Trend labs (4) Chronic pain Current Visit: Yes Status: Chronic Priority: High Code(s): G89.29 - OTHER CHRONIC PAIN SNOMED Code(s): 31423872 Comment: -Will place on Lidocaine patch -Continue Duloxetine but will not increase dose given bradycardia and junctional rhythmunknwon if this may be contributing to above; will defer with Cardiology services re-eval -Continue prn dilaudid 4mg po q4hr with appropriate holding horders -Percocet (1 or 2) Q4 prn was on long acting as outpatient. Recently discharged from -Continue Gabapentin 400 mg PO TID -Continue on scheduled Tylenol with max of 3.5 g/day - consulted neurosurgery 02/22 for intractable back pain -appreciate consultation - conservative management (5) Constipation Current Visit: Yes Status: Acute Code(s): K59.00 - CONSTIPATION, UNSPECIFIED SNOMED Code(s): 76204443 Comment: -Continue Senna, Colace, and Miralax -Continue PRN Lactulose q72H (6) Alcohol abuse Current Visit: Yes Status: Acute Priority: High Code(s): F10.10 - ALCOHOL ABUSE, UNCOMPLICATED SNOMED Code(s): 68897652 Comment: and patient endorse recent alcohol use in effort "to treat her pain" but deny abuse Has not required WAM/benzos Monitor (7) Aortic stenosis Current Visit: Yes Status: Chronic Code(s): I35.0 - NONRHEUMATIC AORTIC ( VALVE) STENOSIS SNOMED Code(s): 66132478 Comment: s/p AVR (8) Depression Current Visit: Yes Status: Acute Priority: High Code(s): F32.9 - MAJOR DEPRESSIVE DISORDER, SINGLE EPISODE, UNSPECIFIED SNOMED Code(s): 53201722 Comment: -Appreciate psychiatry consultto f/u with outpatient psychotherapy -Continue SNRI (9) Suicidal behavior with attempted self-injury Current Visit: Yes Status: Acute Priority: High Code(s): T14.91XA - SUICIDE ATTEMPT, INITIAL ENCOUNTER SNOMED Code(s): 374343625 Comment: - please refer to psychiatry notes; etoh involved -- (pt drank bottle of wine and expressed not wanting to wake up); patient now denies SI. -not suspected risk to self at the moment (10) Thrombocytopenia Current Visit: Yes Status: Acute Code(s): D69.6 - THROMBOCYTOPENIA, UNSPECIFIED SNOMED Code(s): 908691332 Comment: monitor decreased slightly today 02/25 (11) Hypertension Current Visit: Yes Status: Acute Code(s): I10 - ESSENTIAL (PRIMARY) HYPERTENSION SNOMED Code(s): 75161946 Comment: increased losartan from 50 to 100mg 02/22 increase hydralazine PO from BID to TID on 02/24 Monitor 02/25. Increased dose of hydralazine has not had time to work yet (12) Afib Current Visit: Yes Status: Chronic Code(s): I48.91 - UNSPECIFIED ATRIAL FIBRILLATION SNOMED Code(s): 44790516 Comment: Pt currently in NSR. Continue tikosyn and eliquis. (13) DVT prophylaxis Current Visit: Yes Status: Acute Code(s): CES8155 - SNOMED Code(s): 274866260 Comment: -On Eliquis Status and Disposition: -Inpt for tx of hyponatremia and junctional bradycardia -D/C home when ready
[2018-02-28] MEDS: DULoxetine DR CAP* 30 MG CAP.DR PO SCH (16:07)
[2018-02-28] MEDS: Famotidine TAB* 20 MG PO SCH (17:59)
[2018-02-28] MEDS: Losartan TAB* 25 MG PO SCH (18:00)
[2018-02-28] MEDS: Senna TAB PO SCH (20:23)
[2018-02-28] MEDS: Lidocaine Patch REMOVE* 1 NOTE MISC SCH (20:26)
[2018-02-28] MEDS ORDERED: oxyCODONE TAB* 5 MG TAB PO PRN ×2 (20:30→22:28)
[2018-02-28] MEDS: oxyCODONE TAB* 5 MG TAB PO PRN (22:00)
[2018-03-01] MEDS: HYDROmorphone TAB* 4 MG PO PRN ×6 (00:16→21:32)
[2018-03-01] MEDS: oxyCODONE TAB* 5 MG TAB PO PRN ×6 (02:31→23:36)
[2018-03-01] MEDS: Levothyroxine TAB* 137 MCG TAB PO SCH (05:18)
[2018-03-01] MEDS: Docusate CAP* 100 MG PO SCH ×2 (07:52→20:04)
[2018-03-01] MEDS: Polyethylene Glycol 3350* 17 GM PACKET PO SCH (07:53)
[2018-03-01] MEDS: Ondansetron INJ* 2 MG/ML VIAL IV PRN ×3 (07:57→21:33)
[2018-03-01 08:07] LABS: ABS Basophils 0 10^3/ul (0-0.2); ABS Eosinophils 0.1 10^3/ul (0-0.6); ABS Lymphocytes 0.8 10^3/ul (1.0-4.8); ABS Monocytes 0.3 10^3/ul (0-0.8); ABS Neutrophils 2.2 10^3/ul (1.5-7.7); ABS Nucleated RBC 0 10^3/ul; Eosinophil % 2.6 % (0-6); Hematocrit 35 % (35-47); Mean Corpuscular HGB Conc 34 g/dl (31-36); Mean Corpuscular Hemoglobin 31 pg (27-31); Mean Corpuscular Volume 92 fL (80-97); Mean Platelet Volume 6.9 um3 (7.4-10.4); Nucleated Red Blood Cells % 0.1; Platelet Count 151 10^3/ul (150-450); Red Blood Count 3.87 10^6/ul (4.00-5.40); Red Cell Distribution Width 14 % (10.5-15); White Blood Count 3.4 10^3/ul (3.5-10.8)
[2018-03-01 08:12] LABS: EGFR Non-African American 95.1 (>60)
[2018-03-01] MEDS: hydrALAZINE TAB* 10 MG PO SCH ×3 (09:20→20:04)
[2018-03-01] MEDS: Gabapentin CAP(*) 400 MG PO SCH ×3 (09:21→20:04)
[2018-03-01] MEDS: Hydroxychloroquine TAB* 200 MG PO SCH ×2 (09:21→20:05)
[2018-03-01] MEDS: Torsemide TAB* 20 MG PO SCH (09:22)
[2018-03-01] MEDS: Cholecalciferol TAB* 1000 UNITS PO SCH (09:22)
[2018-03-01] MEDS: Sodium Chloride TAB* 1 GM PO SCH ×4 (09:22→20:05)
[2018-03-01] MEDS: amLODIPine TAB* 5 MG PO SCH (09:23)
[2018-03-01] MEDS: Montelukast Sodium TAB* 10 MG PO SCH (09:23)
[2018-03-01] MEDS: Apixaban* 5 MG TAB PO SCH ×2 (09:23→20:04)
[2018-03-01] MEDS: Cyanocobalamin TAB* 500 MCG PO SCH (09:23)
[2018-03-01] MEDS: Dofetilide CAP* 250 MCG PO SCH ×2 (09:23→20:04)
[2018-03-01] MEDS ORDERED: Polyethylene Glycol 3350* 17 GM PACKET PO PRN (10:43)
--- NOTE | 2018-03-01 10:49 | PN ---
Subjective Date of Service: 03/01/18 Interval History: Pt seen and examined. Meds and labs reviewed. Pt feels and appears clinically improved today, however, mentions she doesnt feel as strong as she was since last time PT saw her. RN called PT this AM and still awaiting re-eval. ROS: Pain and nausea still present, but mentions they have improved somewhat, although unable to quantify, stools more soft and no longer constipated. Denied SHER/dizziness, F/C, Vomiting, CP, SOB, increased cough, sputum production , abd pain, diarrhea, constipation, dysuria, throat pain, and new skin lesions. The rest of the 14 point ROS are unremarkable. PHYSICAL EXAM: GEN APPEARANCE: Awake, not in acute distress HEENT: NC/AT, PERRLA, moist oral mucosa, (-) throat erythema NECK: Soft, supple, (-) cervical LAD, (-)JVD HEART: 4/6 murmur, WNL, RRR, No MRG CHEST: CTA, BL, GAE, No W/R/R ABD: Soft, ND/NT, NABS 4x Q EXT: No C/C/E SKIN: Warm to touch Family History: Unchanged from Admission Social History: Unchanged from Admission Past Medical History: Unchanged from Admission Objective Active Medications: Acetaminophen (Tylenol Tab*) 650 mg PO Q4H PRN PRN Reason: FEVER/PAIN Al Hydrox/Mg Hydrox/Simethicone (Maalox Plus*) 30 ml PO Q6H PRN PRN Reason: INDIGESTION Albuterol (Ventolin 2.5 Mg/3 Ml Neb.Samreen*) 2.5 mg INH [id number] AWAKE PRN PRN Reason: sob/wheezing Albuterol (Ventolin Hfa Inhaler*) 2 puff INH Q4H PRN PRN Reason: SOB/WHEEZING Amlodipine Besylate (Norvasc Tab*) 10 mg PO DAILY [facility] Last Admin: 03/01/18 09:23 Dose: 10 mg Apixaban (Eliquis*) 5 mg PO BID [facility] Last Admin: 03/01/18 09:23 Dose: 5 mg Bisacodyl (Dulcolax Supp*) 10 mg MS ONCE PRN PRN Reason: CONSTIPATION Cholecalciferol (Vitamin D Tab*) 2,000 units PO QAM [facility] Last Admin: 03/01/18 09:22 Dose: 2,000 units Cyanocobalamin (Vitamin B12 Tab*) 1,000 mcg PO DAILY [facility] Last Admin: 03/01/18 09:23 Dose: 1,000 mcg Docusate Sodium (Colace Cap*) 100 mg PO BID [facility] Last Admin: 03/01/18 07:52 Dose: Not Given Dofetilide (Tikosyn Cap*) 250 mcg PO Q12HR [facility] Last Admin: 03/01/18 09:23 Dose: 250 mcg Duloxetine HCl (Cymbalta Cap*) 30 mg PO 1700 [facility] Last Admin: 02/28/18 16:07 Dose: 30 mg Famotidine (Pepcid Tab*) 40 mg PO QPM [facility]; Protocol Last Admin: 02/28/18 17:59 Dose: 40 mg Gabapentin (Neurontin Cap(*)) 400 mg PO TID [facility] Last Admin: 03/01/18 09:21 Dose: 400 mg Hydralazine HCl (Apresoline Tab*) 15 mg PO TID [facility] Last Admin: 03/01/18 09:20 Dose: 15 mg Hydromorphone HCl (Dilaudid Tab*) 4 mg PO Q4H PRN PRN Reason: PAIN Last Admin: 03/01/18 09:20 Dose: 4 mg Hydroxychloroquine Sulfate (Plaquenil Tab*) 200 mg PO BID [facility] Last Admin: 03/01/18 09:21 Dose: 200 mg Levothyroxine Sodium (Synthroid Tab*) 137 mcg PO DAILY@0600 [facility] Last Admin: 03/01/18 05:18 Dose: 137 mcg Lidocaine (Lidoderm 5% Patch*) 1 patch TRANSDERM .SEE ORDER [facility] Losartan Potassium (Cozaar Tab*) 100 mg PO QPM [facility]; Protocol Last Admin: 02/28/18 18:00 Dose: 100 mg Magnesium Hydroxide (Milk Of Magnesia Liq*) 30 ml PO Q4H PRN PRN Reason: CONSTIPATION Last Admin: 02/25/18 21:08 Dose: 30 ml Mometasone Furoate/Formoterol Fumar (Dulera 100/5 Mdi*) 2 puff INH BID PRN PRN Reason: SOB/WHEEZING Montelukast Sodium (Singulair Tab*) 10 mg PO QAM [facility] Last Admin: 07/18/18 09:23 Dose: 10 mg Ondansetron HCl (Zofran Inj*) 4 mg IV Q4H PRN PRN Reason: NAUSEA/VOMITING Last Admin: 03/01/18 07:57 Dose: 4 mg Oxycodone HCl (Roxycodone Tab*) 10 mg PO Q4H PRN PRN Reason: PAIN Last Admin: 03/01/18 07:10 Dose: 10 mg Pharmacy Profile Note (Lidocaine Patch Remove*) 1 note N/A 2100 [facility] Last Admin: 02/28/18 20:26 Dose: Not Given Polyethylene Glycol/Electrolytes (Miralax*) 17 gm PO EVERY OTHER DAY PRN PRN Reason: CONSTIPATION Senna (Senokot Tab*) 2 tab PO BEDTIME [facility] Last Admin: 02/28/18 20:23 Dose: 2 tab Sodium Chloride (Sodium Chloride Tab*) 1 gm PO QID [facility] Last Admin: 03/01/18 09:22 Dose: 1 gm Torsemide (Demadex*) 10 mg PO DAILY [facility] Last Admin: 03/01/18 09:22 Dose: 10 mg Vital Signs - 8 hr 03/01/18 03/01/18 03/01/18 03:15 05:17 05:18 Temperature 98.8 F Pulse Rate 43 Respiratory 16 18 18 Rate Blood Pressure 159/66 (mmHg) O2 Sat by Pulse 92 Oximetry 03/01/18 03/01/18 03/01/18 07:10 07:25 07:51 Temperature 98.1 F Pulse Rate 48 Respiratory 18 15 14 Rate Blood Pressure 180/62 (mmHg) O2 Sat by Pulse 98 Oximetry 03/01/18 03/01/18 03/01/18 08:00 09:20 09:21 Temperature Pulse Rate Respiratory 16 14 14 Rate Blood Pressure 144/70 (mmHg) O2 Sat by Pulse Oximetry 03/01/18 09:45 Temperature Pulse Rate Respiratory 14 Rate Blood Pressure (mmHg) O2 Sat by Pulse Oximetry Oxygen Devices in Use Now: None Result Diagrams: 03/01/18 07:44 03/01/18 07:44 Additional Lab and Data: . Laboratory Tests 02/20/18 02/20/18 09:07 10:41 Urine Opiates Screen Presumptive positive A Serum Alcohol 173 H Assess/Plan/Problems-Billing . Assessment: 77 yo woman with h/o s/p AVR, afib on AC, CHF, depression, chronic pain p/w severe back pain and SI in the setting of alcohol intoxication found with hyponatremia - Patient Problems (1) Nausea Current Visit: Yes Status: Acute Code(s): R11.0 - NAUSEA SNOMED Code(s): 984040892 Comment: -Improved -Likely due to side effects of diluadid -No reports of vomiting -Continue PRN Zofran; will hold off on prochlorperazine and Reglan given junctional bradycardia and polypharmacy -Continue watchful waiting (2) Bradycardia Current Visit: Yes Status: Acute Code(s): R00.1 - BRADYCARDIA, UNSPECIFIED SNOMED Code(s): 42081473 Comment: -Junctional rhythm with bradycardia -Continue lowered dose of Tikosyn at current dose -D/W Dr. Hampton yesterday; appreciate Dr. Muse re-eval yesterday -No indication for pacemaker and continue with optimized medical therapy -Pt to F/U with Dr. Hampton as outpt (3) Hypertension Current Visit: Yes Status: Acute Code(s): I10 - ESSENTIAL (PRIMARY) HYPERTENSION SNOMED Code(s): 54508868 Comment: -Slightly uncontrolled - increased losartan from 50 to 100mg 02/22 -Increase hydralazine to 15 mg PO TID (4) Hyponatremia Current Visit: Yes Status: Acute Code(s): E87.1 - HYPO-OSMOLALITY AND HYPONATREMIA SNOMED Code(s): 38454595 Comment: -Multifactoral - etoh, medications, constipation, pain -Suspect SIADH - received IVF on admisison with resultant decline in serum sodium -Continues to improve -Continue NaCl tabs from TID to QID -Continue fluid restriction -Will place pt back on Torsemide -Will likely need salt tabs at home since pt is likely diuresing more salt than fluid with diuretics prescribed at home -Trend labs (5) Chronic pain Current Visit: Yes Status: Chronic Priority: High Code(s): G89.29 - OTHER CHRONIC PAIN SNOMED Code(s): 88648470 Comment: -Improved -Continue Lidocaine patch -Continue Duloxetine but will not increase dose given bradycardia and junctional rhythm -Continue prn dilaudid 4mg po q4hr with appropriate holding horders -Percocet (1 or 2) Q4 prn was on long acting as outpatient. Recently discharged from -Continue Gabapentin 400 mg PO TID -Continue on scheduled Tylenol with max of 3.5 g/day - consulted neurosurgery 02/22 for intractable back pain -appreciate consultation - conservative management (6) Constipation Current Visit: Yes Status: Acute Code(s): K59.00 - CONSTIPATION, UNSPECIFIED SNOMED Code(s): 86203214 Comment: -Resolved, now mentions she has regular bowel movements but with soft stools; does not complain of abd pain nor blood in stools -Will D/C qdaily Miralax and will place pt on PRN Miralax q48H PRN -D/C PRN Lactulose -Continue Senna and Colace (7) Alcohol abuse Current Visit: Yes Status: Acute Priority: High Code(s): F10.10 - ALCOHOL ABUSE, UNCOMPLICATED SNOMED Code(s): 37617991 Comment: and patient endorse recent alcohol use in effort "to treat her pain" but deny abuse Has not required WAM/benzos Monitor (8) Aortic stenosis Current Visit: Yes Status: Chronic Code(s): I35.0 - NONRHEUMATIC AORTIC ( VALVE) STENOSIS SNOMED Code(s): 37741214 Comment: s/p AVR (9) Depression Current Visit: Yes Status: Acute Priority: High Code(s): F32.9 - MAJOR DEPRESSIVE DISORDER, SINGLE EPISODE, UNSPECIFIED SNOMED Code(s): 36354112 Comment: -Appreciate psychiatry consultto f/u with outpatient psychotherapy -Continue SNRI (10) Suicidal behavior with attempted self-injury Current Visit: Yes Status: Acute Priority: High Code(s): T14.91XA - SUICIDE ATTEMPT, INITIAL ENCOUNTER SNOMED Code(s): 902060454 Comment: - please refer to psychiatry notes; etoh involved -- (pt drank bottle of wine and expressed not wanting to wake up); patient now denies SI. -not suspected risk to self at the moment (11) Thrombocytopenia Current Visit: Yes Status: Acute Code(s): D69.6 - THROMBOCYTOPENIA, UNSPECIFIED SNOMED Code(s): 701561428 Comment: monitor decreased slightly today 02/25 (12) Afib Current Visit: Yes Status: Chronic Code(s): I48.91 - UNSPECIFIED ATRIAL FIBRILLATION SNOMED Code(s): 09444634 Comment: Pt currently in NSR. Continue tikosyn and eliquis. (13) DVT prophylaxis Current Visit: Yes Status: Acute Code(s): WJK6913 - SNOMED Code(s): 071843404 Comment: -On Eliquis Status and Disposition: -For PT re-eval -For Ambulatory saturation test
[2018-03-01] MEDS: Famotidine TAB* 20 MG PO SCH (17:20)
[2018-03-01] MEDS: Losartan TAB* 25 MG PO SCH (17:20)
[2018-03-01] MEDS: DULoxetine DR CAP* 30 MG CAP.DR PO SCH (17:21)
[2018-03-01] MEDS: Lidocaine Patch REMOVE* 1 NOTE MISC SCH (19:55)
[2018-03-01] MEDS: Senna TAB PO SCH (20:05)
[2018-03-02] MEDS: HYDROmorphone TAB* 4 MG PO PRN ×3 (01:53→11:35)
[2018-03-02] MEDS: Ondansetron INJ* 2 MG/ML VIAL IV PRN ×2 (02:15→11:37)
[2018-03-02] MEDS: oxyCODONE TAB* 5 MG TAB PO PRN ×3 (04:52→13:16)
[2018-03-02] MEDS: Levothyroxine TAB* 137 MCG TAB PO SCH (04:52)
[2018-03-02] MEDS: Torsemide TAB* 20 MG PO SCH (09:14)
[2018-03-02] MEDS: Docusate CAP* 100 MG PO SCH ×2 (09:14→09:23)
[2018-03-02] MEDS: Cholecalciferol TAB* 1000 UNITS PO SCH (09:20)
[2018-03-02] MEDS: Gabapentin CAP(*) 400 MG PO SCH ×2 (09:20→13:17)
[2018-03-02] MEDS: amLODIPine TAB* 5 MG PO SCH (09:20)
[2018-03-02] MEDS: Apixaban* 5 MG TAB PO SCH (09:20)
[2018-03-02] MEDS: Hydroxychloroquine TAB* 200 MG PO SCH (09:20)
[2018-03-02] MEDS: Sodium Chloride TAB* 1 GM PO SCH ×2 (09:20→13:17)
[2018-03-02] MEDS: Cyanocobalamin TAB* 500 MCG PO SCH (09:21)
[2018-03-02] MEDS: hydrALAZINE TAB* 10 MG PO SCH ×2 (09:21→13:17)
[2018-03-02] MEDS: Dofetilide CAP* 250 MCG PO SCH (09:22)
[2018-03-02] MEDS: Montelukast Sodium TAB* 10 MG PO SCH (09:22)
--- NOTE | 2018-03-02 11:41 | DS ---
CC: Dr. Terry; Dr. Hampton; Dr. Hatfield; Dr. Manuel; Dr. Albarran * DISCHARGE SUMMARY: DATE OF ADMISSION: 02/20/18 DATE OF DISCHARGE: 03/02/18 PRIMARY CARE PROVIDER: Dr. Terry. DISCHARGE DIAGNOSES: 1. Depression with suicidal ideation. 2. Exacerbation of chronic pain. 3. 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 4. Bradycardia due to junctional rhythm. SECONDARY DIAGNOSES: 1. History of hypertension. 2. History of atrial fibrillation. 3. History of psoriatic arthritis. 4. Hypothyroidism. 5. Depression. MEDICATIONS AT DISCHARGE: Include: 1. Tikosyn with a decreased dose to 250 mcg p.o. b.i.d. from previously taken 500 mcg b.i.d. 2. Amlodipine 10 mg daily, new medication. 3. Cymbalta 30 mg daily, new medication. 4. Hydralazine was increased to 15 mg 3 times a day from 10 mg b.i.d. 5. Sodium chloride 1 g 4 times a day, new medication. Remaining medications are unchanged and to be continued and those include: 1. Albuterol inhaler on p.r.n. basis. 2. Eliquis 5 mg b.i.d. 3. Vitamin D3 1000 units daily. 4. Vitamin B12 1000 mcg daily. 5. Colace 250 mg q.a.m. 6. Neurontin 400 mg q.p.m. and 600 mg in a.m. 7. Hydromorphone ER 12 mg b.i.d. and hydromorphone immediate release 4 mg tablets on a p.r.n. basis as prescribed by Dr. Terry previously. 8. Plaquenil 200 mg b.i.d. 9. Probiotic 1 capsule b.i.d. 10. Synthroid 137 mcg daily. 11. Dulera 100/5 one inhalation b.i.d. 12. Singulair 10 mg daily. 13. Multivitamin 1 tablet daily. 14. Zantac 300 mg daily. 15. Micardis 40 mg daily. LABORATORY DATA AND STUDIES PERFORMED DURING THE HOSPITAL STAY: Included: At admission, patient's sodium was 118. On 02/19/18, patient's sodium was 129, potassium 4.2, chloride 95, carbon dioxide 25, BUN 9, creatinine 0.61. Liver function tests were unremarkable. Patient's TSH was 3.5 on 02/20/18. Cortisol level was 6.39 in the morning on 02/24/18. CBC: White blood cell count of 3.4, hemoglobin 12.0, hematocrit 35, and platelets 151; that was obtained on 03/01/18. Urinalysis unremarkable on 02/20/18. Patient's urine random sodium was 66 and chloride was 96 on 02/23/18. At admission, patient's serum alcohol was 173. Portable chest x-ray obtained on 02/23/18, impression: "Mild cardiomegaly, slightly increased in size. Small right basilar infiltrate." CONSULTATIONS DURING THE HOSPITAL STAY: Included: 1. Dr. Albarran from Psychiatry due to suicidal ideation. 2. Dr. Hatfield and Dr. Hampton from Cardiology due to junctional rhythm. 3. Dr. Manuel from Neurosurgery due to abnormal MRIs and chronic pain. At discharge, patient is recommended to follow up: 1. With her primary care provider, Dr. Terry, in 4 to 7 days. 2. Follow up for Dr. Hampton with Beatrice Carrizales NP, on 03/09/18 at 11:25 a.m. Patient was asked to have her basic metabolic panel drawn within the next 3 days with recommendations to have the report sent to Dr. Hampton and Dr. Terry. HOSPITALIZATION COURSE: Dana Gusman is a 77-year-old female with history of chronic pain due to spinal stenosis, who has also history of atrial fibrillation and is on Eliquis. She came into the hospital intoxicated on 02/20 with marked hyponatremia, complaining of chronic pain with suicidal ideation. Dr. Albarran saw the patient in consultation and recommended starting patient on Cymbalta, which was started and titrated during patient's hospital stay with good result. Over the course of the patient's hospital stay, patient was constipated and that resolved after multiple laxatives. She had diarrhea for a couple of days and that resolved by the time of discharge. Her pain was controlled with short- acting Dilaudid. Unfortunately, we were unable to provide her long-acting Dilaudid. She was noted to be hyponatremic in an SIADH pattern. She was placed on salt tablets and fluid restriction with good results with the sodium normalizing at 129 by the time of discharge. She is recommended to have a basic metabolic panel drawn in approximately 3 days after discharge to follow up. Over the course of her hospital stay, she was noted to be bradycardic and her EKG noted a junctional rhythm. Dr. Hatfield saw the patient for evaluation from Cardiology and recommended lowering patient's Tikosyn dose from 500 mcg b.i.d. to [address] Hampton saw the patient a couple of days later and agreed with Dr. Hatfield's recommendation. Patient is to follow up with Dr. Hampton as scheduled with an appointment. Also, Dr. Hampton's office is going to prescribe the changed dose of Tikosyn at patient's discharge today. By the time of discharge, patient was cleared from Psychiatry standpoint and she is no longer complaining of suicide ideation. She feels well and she wants to go home. She ambulates steadily and Physical Therapy cleared the patient for discharge also. She is going to be discharged home with recommendation to follow up with Dr. Terry as mentioned above. PHYSICAL EXAM AT THE TIME OF DISCHARGE: Blood pressure 146/49, heart rate of 45 and regular, respiratory rate 17, oxygen saturation 96% on room air, temperature 98.0. General: The patient is a very pleasant 77-year-old female who is in no acute distress. Alert, awake, and oriented x3. HEENT: Head: Atraumatic, normocephalic. Eyes: Pupils are equal, reactive to light and accommodation. Oropharynx is clear. Mucosa moist. Neck: Supple. No JVD. No bruits bilaterally. Cardiovascular: Regular rate and rhythm with 3/6 systolic ejection murmur noted on auscultation of the left upper sternal border. Respiratory: Clear to auscultation bilaterally. Abdomen: Soft, nontender. Bowel sounds are present in all 4 quadrants. Extremities: There is trace pitting pedal edema bilaterally. Pulses are +2 bilaterally. There is no clubbing or cyanosis. Neuro Evaluation: Grossly nonfocal. Cranial nerves II through XII grossly intact. Motor strength is 5/5 bilaterally. Speech is clear. Psychiatric Evaluation: Oriented x3, but no evidence of anxiety or depression. Please note that this is a short summary of the patient's hospitalization. Please refer to further medical records for details. TIME SPENT: Approximately 50 minutes was spent on the patient's discharge. [id number]/[facility] #: [id number] [facility]
[2018-03-02 11:50] VITALS: BP 148/49
== END 2018-03-02 13:45 | disposition home health service (06) | DRG 644 ==
LOC: ED 08:23 → MED 11:17 → OBSVTOIN 02-21 08:42 → MED 02-21 12:29
PROVIDERS: ADMIT Internal Medicine; ATTEND Internal Medicine
DX: E22.2 Syndrome of inappropriate secretion of antidiuretic hormone (principal); F33.2 Major depressive disorder, recurrent severe without psychotic features; E03.9 Hypothyroidism, unspecified; I27.20 Pulmonary hypertension, unspecified; E78.00 Pure hypercholesterolemia, unspecified; G47.30 Sleep apnea, unspecified; K21.9 Gastro-esophageal reflux disease without esophagitis; M19.90 Unspecified osteoarthritis, unspecified site; L40.50 Arthropathic psoriasis, unspecified; Z96.653 Presence of artificial knee joint, bilateral; Z96.621 Presence of right artificial elbow joint; G89.29 Other chronic pain; R51 Headache; M54.9 Dorsalgia, unspecified; J45.909 Unspecified asthma, uncomplicated; F10.129 Alcohol abuse with intoxication, unspecified; Y90.9 Presence of alcohol in blood, level not specified; I48.0 Paroxysmal atrial fibrillation; I50.9 Heart failure, unspecified; M50.30 Other cervical disc degeneration, unspecified cervical region; I45.10 Unspecified right bundle-branch block; T51.8X2A Toxic effect of other alcohols, intentional self-harm, initial encounter; I08.2 Rheumatic disorders of both aortic and tricuspid valves; I11.0 Hypertensive heart disease with heart failure; D69.6 Thrombocytopenia, unspecified; Z91.5 Personal history of self-harm; Z85.3 Personal history of malignant neoplasm of breast; Z88.1 Allergy status to other antibiotic agents; Z88.8 Allergy status to other drugs, medicaments and biological substances; Z90.11 Acquired absence of right breast and nipple; Z82.3 Family history of stroke; Z82.49 Family history of ischemic heart disease and other diseases of the circulatory system; Z86.14 Personal history of Methicillin resistant Staphylococcus aureus infection; Z87.891 Personal history of nicotine dependence; Z98.42 Cataract extraction status, left eye; Z98.41 Cataract extraction status, right eye; Z92.3 Personal history of irradiation; Z80.3 Family history of malignant neoplasm of breast; Z98.1 Arthrodesis status; R00.1 Bradycardia, unspecified; K59.00 Constipation, unspecified; Z79.01 Long term (current) use of anticoagulants; Y92.009 Unspecified place in unspecified non-institutional (private) residence as the place of occurrence of the external cause
CPT/HCPCS: 36415; 71046; 80048; 80053; 80307; 80320; 80329; 81003; 82436; 82533; 82570; 83735; 83930; 83935; 84100; 84133; 84300; 84443; 85025; 85027; 93005; 99283; A9270-GY; G0480; G8978-GP-CI; G8979-GP-CI; G8980-GP-CI; J1170; J2270; J2405

== ENCOUNTER → 2019-01-03 09:45 | Emergency (ER) | payer MEDICARE, BC ==
--- NOTE | 2019-01-03 10:14 | ED ---
GI/ HPI - HPI Summary HPI Summary: A 78 y/o female presents to [facility] with a chief complaint of an intense pain in her lower abdomen since 15:00 yesterday. Pt went to her PCP office who sent pt to the ED for futher evaluation. At triage she rated her pain as a 4/10 in severity. Currently she thinks that her pain is better since in the ED and she thinks she can go home. Pt reports had a large BM this morning with a normal formed stool. no blood, no black. She reports that 10 days ago she was diagnosed with shingles and a UTI. Was started on antiviral. Pt states dilaudid from her PCP for chronic pain related to her back. No urinary symptoms. No fever, chills. No cp, sob, abd pain. No n/v/d. She has no radiating pain to her flanks. She reports that she had been feeling nauseous with the pain, but has no current N/V. She claims that changing positions sometimes helped her pain. She reports that she had some ovarian cysts removed and an appendectomy. She denies a Hx of diverticulitis or an abnormal colonoscopy or kidney stones. She reports that she had a mastectomy for right breast cancer and had radiation four years ago. She is on Eliquis and Tikosyn for A-fib. Medications reviewed Istop reviewed Reference #: [id number] - History of Current Complaint Chief Complaint: EDGeneral Time Seen by Provider: 01/03/19 10:02 Stated Complaint: ABD PAIN PER PT Hx Obtained From: Patient Onset/Duration: Started Hours Ago, Still Present Timing: Constant, Lasting Hours Severity: Moderate Current Severity: Mild Pain Intensity: 4 - out of 10 Location of Pain: Other - lower abdominal pain Pain Characteristics: Unable to describe Associated Signs and Symptoms: Negative: Nausea, Vomiting, Fever Aggravating Factor(s): Nothing Alleviating Factor(s): Position - moving position - Additional Pertinent History Primary Care Physician: [id number] - Allergy/Home Medications Allergies/Adverse Reactions: Allergies Allergy/AdvReac Type Severity Reaction Status Date / Time azathioprine Allergy See Comment Verified 01/03/19 09:52 celecoxib [From Celebrex] Allergy Rash Verified 01/03/19 09:52 chlorhexidine Allergy Rash And Verified 01/03/19 09:52 Itching methotrexate Allergy See Comment Verified 01/03/19 09:52 vancomycin Allergy See Comment Verified 01/03/19 09:52 adhesives AdvReac Intermediate Rash Uncoded 01/03/19 09:52 Home Medications: Home Medications Cyanocobalamin TAB* [Vitamin B12 TAB*] 1,000 mcg PO DAILY 01/03/19 [History Confirmed 01/03/19] Dofetilide CAP* [Tikosyn CAP*] 250 mcg PO BID 01/03/19 [History Confirmed ] Fluticasone/Vilanterol MDI(NF) [Breo Ellipta MDI 200/25(NF)] 1 puff INH DAILY [History Confirmed 01/03/19] Hydromorphone HCl [Dilaudid] 4 mg PO Q4HR PRN 01/03/19 [History Confirmed ] Hydroxychloroquine TAB* [Plaquenil TAB*] 400 mg PO DAILY 01/03/19 [History Confirmed 01/03/19] Vitamin A Palmitate [Vitamin A] 10,000 unit PO DAILY 01/03/19 [History Confirmed 01/03/19] amLODIPine TAB* [Norvasc 5 mg TAB*] 10 mg PO DAILY 01/03/19 [History Confirmed 01/03/19] hydrALAZINE TAB* [Apresoline TAB*] 20 mg PO TID 01/03/19 [History Confirmed ] PMH/Surg Hx/FS Hx/Imm Hx Previously Healthy: No Endocrine/Hematology History: Reports: Hx Anticoagulant Therapy - eliquis, Hx Thyroid Disease - hypothyroidism Denies: Hx Blood Disorders, Hx Blood Transfusions, Hx Bone Marrow Disease, Hx Diabetes, Hx Systemic Lupus Erythematosus, Hx Sickle Cell Disease, Hx Anemia , Hx Unexplained Bleeding, Other Endocrine/Hematological Disorders Cardiovascular History: Reports: Hx Atrial Fibrillation - on blood thinner, Hx Hypercholesterolemia, Hx Hypertension, Hx Valvular Heart Disease - Aortic Valve disease, Other Cardiovascular Problems/Disorders - ON BLOOD THINNER MEDICATION PER Denies: Hx Aneurysm, Hx Angina, Hx Angioplasty, Hx Auto Implanted Cardiovert Defib, Hx Cardiac Arrest, Hx Cardiomegaly, Hx Congenital Heart Disease, Hx Congestive Heart Failure, Hx Coronary Artery Disease, Hx Deep Vein Thrombosis, Hx Embolism, Hx Hypotension, Hx Pacemaker/ICD, Hx Peripheral Vascular Disease, Hx Rheumatic Fever, Hx Syncope Respiratory History: Reports: Hx Sleep Apnea, Other Respiratory Problems/ Disorders - Pulmonary HTN Denies: Hx Asthma, Hx Chronic Bronchitis, Hx Chronic Obstructive Pulmonary Disease (COPD) - with chronic bronchitis, Hx Cystic Fibrosis, Hx Lung Cancer, Hx Pleural Effusion, Hx Pneumonia, Hx Pulmonary Edema, Hx Pulmonary Embolism, Hx Seasonal Allergies GI History: Reports: Hx Gastroesophageal Reflux Disease, Hx Ulcer - gerd, Other GI Disorders - CONSTIPATION- DIET CONTROLLED Denies: Hx Cirrhosis, Hx Crohn's Disease, Hx Diverticulosis, Hx Gall Bladder Disease, Hx Gastrointestinal Bleed, Hx Hiatal Hernia, Hx Irritable Bowel, Hx Jaundice, Hx Obstructive Bowel, Hx Ileostomy, Hx Pyloric Stenosis History: Reports: Other Problems/Disorders - UTIs ONCE IN AWHILE, not recent per pt Denies: Hx Dialysis, Hx Renal Disease Musculoskeletal History: Reports: Hx Arthritis, Hx Back Problems, Hx Orthopedic Injury - Right arm reconstruction r/t traumatic injury, Other Musculoskeletal History - Left Fibula Fracture 08/03/16, psoriatic arthritis Denies: Hx Bursitis, Hx Congenital Bone Abnormalities, Hx Fibromyalgia, Hx Gout, Hx Osteoporosis, Hx Scoliosis, Hx Tendonitis Sensory History: Reports: Hx Cataracts, Hx Contacts or Glasses Denies: Hx Eye Injury, Hx Eye Prosthesis, Hx Glaucoma, Hx Legally Blind, Hx Macular Degeneration, Hx Vision Problem, Hx Deafness, Hx Hearing Aid, Hx Hearing Problem, Other Sensory Impairments Opthamlomology History: Reports: Hx Cataracts, Hx Contacts or Glasses Denies: Hx Eye Injury, Hx Eye Prosthesis, Hx Glaucoma, Hx Legally Blind, Hx Macular Degeneration, Hx Vision Problem, Other Sensory Impairments Neurological History: Denies: Hx CVA, Other Neuro Impairments/Disorders - spinal cord deformities Psychiatric History: Reports: Hx Depression, Hx Suicide Attempt, Hx Substance Abuse - EtOH Denies: Hx Anxiety, Hx Attention Deficit Hyperactivity Disorder, Hx Eating Disorder, Hx Panic Disorder, Hx Post Traumatic Stress Disorder, Hx Inpatient Treatment, Hx Community Mental Health Tx, Hx Schizophrenia, Hx Bipolar Disorder , Hx of Violent Episodes Against Others, Other Psychiatric Issues/Disorders - Cancer History Cancer Type, 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 LT FOOT - REPAIR - RECON W/ METAL;. LUMBAR - DISCETOMY, HERNIATION. 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 REN KNEE REPLACEMENTS (1999 & 2010). Rt ELBOW - ARTIFICIAL JOINT AND METAL PLATE ABOVE JOINT;. TONSILECTOMY. APPENDECTOMY,. OVARIAN CYST REMOVED - REN; . Rt MASTECTOMY- W/ RADIATION. LEFT ANKLE x2 (has hardware),. tubal;. EAR TUBES RECENTLY;. 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, 2013 Denies: Hx Clostridium Difficile, Hx Hepatitis, Hx Human Immunodeficiency Virus (HIV), Hx Shingles, Hx Tuberculosis, Hx Known/Suspected VRE, Hx Known/ Suspected VRSA, History Other Infectious Disease, Traveled Outside the [place] in Last 30 Days - Family History Known Family History: Positive: Other - Breast CA - Social History Alcohol Use: Daily Substance Use Type: Reports: None Substance Use Comment - Amount & Last Used: DILAUDID Hx Tobacco Use: Yes Smoking Status (MU): Former Smoker Type: Cigarettes Amount Used/How Often: 5 a day Length of Time of Smoking/Using Tobacco: 15 yrs Have You Smoked in the Last Year: No Review of Systems Negative: Fever Positive: Abdominal Pain, Other - positive: 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 Negative : Vomiting, Nausea Positive: no symptoms reported All Other Systems Reviewed And Are Negative: Yes Physical Exam - Summary Physical Exam Summary: Vital Signs Reviewed: Yes A+Ox3, no distress, resting comfortable on stretcher Eyes: Conjunctiva Clear, LEIGH. EOM intact and full ENT: Hearing grossly normal TM x 2 clear, mmoist, uvula midline, no exudate, no erythema Neck: Positive: Supple Respiratory: Positive: No respiratory distress, No accessory muscle use + CTA throughout no w/r Cardiovascular: RRR nl s1, s2 loud chronic mumur CBT <2 sec abd soft + BS nt/nd no guarding, no distension, no CVA Musculoskeletal Exam: MILLER x 4 without difficulty Strength Intact, ROM Intact Neurological: Positive: Alert, + sensation throughout Psychological: Positive: Normal Response To Family Skin: Positive: no ecchymosis. Pt with scabbed lesion left lower flank along dermatome - c/w shingles. No open, weeping lesions Triage Information Reviewed: Yes Vital Signs On Initial Exam: Initial Vitals Temp Pulse Resp BP Pulse Ox 97.2 F 65 15 150/82 99 01/03/19 09:49 01/03/19 09:49 01/03/19 09:49 01/03/19 09:49 01/03/19 09:49 Diagnostics - Vital Signs Vital Signs Temp Pulse Resp BP Pulse Ox 01/03/19 09:49 97.2 F 65 15 150/82 99 - Laboratory Result Diagrams: 01/03/19 10:51 01/03/19 10:51 Lab Statement: Any lab studies that have been ordered have been reviewed, and results considered in the medical decision making process. - CT abdomen/pelvis CT Interpretation Completed By: Radiologist Summary of CT Findings: NO EVIDENCE FOR ACUTE INTRA-ABDOMINAL ABNORMALITY. ED physician has reviewed this imaging report. Re-Evaluation - Re-Evaluation First Eval Change: Improved - Pt resting comfortable remains pain free labs and CT neg will discharge return precautins GIGU Course/Dx - Course Course Of Treatment: Patient presents to the emergency department after being evaluated her primary care provider for abdominal pain that started yesterday. Patient states it was severe to the night. Patient with nausea but no vomiting. No fevers or chills. No history of similar. Patient does have a history of chronic pain in her routine Dilaudid was not helping. Patient states she was recently treated for UTI but denies urinary symptoms. Patient's vital signs were stable at the time of presentation. At the time of my evaluation, patient was essentially pain-free. Patient has healing zoster rash on her left flank. Patient without any open wounds. Discussed with patient her urine. Waiting for lab work. We'll check CT noncontrast renal colic. Patient aware that may not find pathology on imaging. Patient and is at bedside comfortable in agreement with plan. eleved BP related to pain - Diagnoses Provider Diagnoses: Resolved abdominal pain Discharge - Sign-Out/Discharge Documenting (check all that apply): Patient Departure - DC Patient Received Moderate/Deep Sedation with Procedure: No - Discharge Plan Condition: Stable Disposition: HOME Patient Education Materials: Abdominal Pain (ED) Referrals: Candace Lopez MD [Primary Care Provider] - Additional Instructions: Your urine tested today shows that your bladder infection has resolved Your blood tests were non-concerning Continue to take your medications as previously prescribed for pain and your shingles The CT scan performed did not reveal a cause of your discomfort. You state your pain has nearly resolved The provider that evaluation you today thinks it is safe for you to go home. It is recommended you get restful sleep, eat regular healthy meals It is recommended you schedule a follow-up appointment with your primary care provider If you develop fevers, vomiting, uncontrolled pain, or other concerns it is recommended you contact your doctor or return to the emergency department - Billing Disposition and Condition Condition: STABLE Disposition: Home - Attestation Statements Document Initiated by Bello: Yes Documenting Scribe: Aurelio Martins Provider For Whom Bello is Documenting (Include Credential): Mandy Mead MD Scribe Attestation: I, Aurelio Martins, scribed for Mandy Mead MD on 01/05/19 at 2140. Scribe Documentation Reviewed: Yes Provider Attestation: The documentation as recorded by the Aurelio olguin accurately reflects the service I personally performed and the decisions made by me, Mandy Mead MD Status of Scribe Document: Viewed
[2019-01-03 10:31] LABS: Urine Appearance Cloudy; Urine Bilirubin Negative (Negative); Urine Blood Negative (Negative); Urine Color Yellow; Urine Glucose Negative (Negative); Urine Ketones Negative (Negative); Urine Nitrite Negative (Negative); Urine Protein Negative (Negative); Urine Specific Gravity 1.015 (1.010-1.030); Urine Urobilinogen Negative (Negative)
[2019-01-03 11:21] LABS: ABS Eosinophils 0.2 10^3/ul (0-0.6); ABS Lymphocytes 1.3 10^3/ul (1.0-4.8); ABS Monocytes 0.4 10^3/ul (0-0.8); ABS Neutrophils 3.2 10^3/ul (1.5-7.7); Eosinophil % 3.8 %; Hematocrit 41 % (35-47); Hemoglobin 13.9 g/dL (12.0-16.0); Lymphocyte % 25.5 %; Mean Corpuscular HGB Conc 34 g/dL (31-36); Mean Corpuscular Hemoglobin 30 pg (27-31); Mean Corpuscular Volume 89 fL (80-97); Mean Platelet Volume 6.3 fL (7.4-10.4); Platelet Count 235 10^3/uL (150-450); Red Blood Count 4.64 10^6 /uL (3.70-4.87); Red Cell Distribution Width 14 % (10.5-15); White Blood Count 5.1 10^3/uL (3.5-10.8)
[2019-01-03 11:26] LABS: Albumin 4.2 g/dL (3.2-5.2); Albumin/Globulin Ratio 1.7 (1-3); BUN/Creatinine Ratio 17.4 (8-20); Calcium 9.2 mg/dL (8.6-10.3); EGFR Non-African American 131.4 (>60); Globulin 2.5 g/dL (2-4); Magnesium 1.9 mg/dL (1.9-2.7); Potassium 4.3 mmol/L (3.5-5.0); Total Bilirubin 0.5 mg/dL (0.2-1.0); Total Protein 6.7 g/dL (6.4-8.9)
[2019-01-03 12:36] VITALS: BP 142/74
== END | disposition home or self-care (01) ==
LOC: ED 09:45
DX: R10.30 Lower abdominal pain, unspecified (principal); G47.30 Sleep apnea, unspecified; Z85.3 Personal history of malignant neoplasm of breast; F32.9 Major depressive disorder, single episode, unspecified; Z79.01 Long term (current) use of anticoagulants; E03.9 Hypothyroidism, unspecified; I48.91 Unspecified atrial fibrillation; E78.00 Pure hypercholesterolemia, unspecified; I10 Essential (primary) hypertension; Z87.891 Personal history of nicotine dependence
CPT/HCPCS: 36415; 74176; 80053; 81003; 83735; 85025; 99283

== ENCOUNTER 2019-01-09 22:53 | Emergency (ER) | payer MEDICARE, BC ==
--- OUTSIDE RECORDS SUMMARY | 2019-01-09 23:19 | XMS REPORT | Continuity of Care Document ---
:1940 External Reference #:[id number] Author Name Miles Tolentino M.D. Address [address] [place] [address] Care Team Providers Name Role Phone Jessica JOHN, Candace Primary Care Physician Unavailable Payers Date Identification Numbers Payment Provider Subscriber Effective: 2018 Policy Number: [id number] Medicare-[facility] [employer] Dana Gusman PayID: [id number] [address] [place] [address] Policy Number: [id number] [place]/Pending Sale To [facility] [employer] Group Number: [id number] [address] PayID: [id number] [place] [address] Advance Directives Description No Information Available Problems Active Problems Provider Date Patulous eustachian tube Miles Tolentino M.D. Onset: 12/11/2018 Sensorineural hearing loss, bilateral Miles Tolentino M.D. 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 Tobacco Use Start: Unknown End: Former Cigarette Smoker Less than half ppd, 15 Unknown year history, quit at age 40 Tobacco Use Start: Unknown Never Smoked Cigars Tobacco Use Start: Unknown Never Smoked A Pipe Smokeless Tobacco Never Used Smokeless Tobacco ETOH Use Denies alcohol use Tobacco Use Start: Unknown End: Patient is a former Unknown smoker Smoking Status Reviewed: 12/10/18 Patient is a former smoker Allergies, Adverse Reactions, Alerts Active Allergies Reaction Severity Comments Date Vancomycin 07/11/2018 Methotrexate 07/11/2018 Medications Active Medications SIG Qnty Indications Ordering Date Provider Duloxetine HCL Take 2 Capsules Unknown 30mg Caps DR By Mouth Every Part Day - Maximum Daily Dose Of 2 Capsules Per Day Hydromorphone HCL ER Take 1 Tablet By Unknown 12mg T24a Mouth Two Times Daily -- Maximum Daily Dose Of 2 Per Day Levothyroxine Sodium Take 1 Tablet By Unknown 137mcg Mouth Every Day Tablets Eliquis Take 1 Tablet By Unknown 5mg Tablets Mouth Two Times Daily Prednisone 60 mg a day for 150tabs Miles N. 10mg Tablets 7 days, 40 mg Strominger, for 4 days, 30 M.D. mg for 4 days, 20 mg for 4 days, 10 mg for 4 days, then 5 mg for 4 days (she will have extra) Albuterol Sulfate Inhale The Unknown (2.5mg/3ML) Contents Of 1 0.083% Nebulizer Vial Via Nebulizer Every 6 Hours as Needed Hydroxychloroquine Take 2 Tablets Unknown Sulfate By Mouth Every 200mg Tablets Day Telmisartan Take 1 Tablet By Unknown 40mg Tablets Mouth Every Night Dofetilide Take 1 Capsule Unknown 250mcg Capsules By Mouth Two Times Daily Ranitidine HCL Take 1 Capsule Unknown 300mg Capsules By Mouth Every Night Gabapentin Take Two Unknown 300mg Capsules Capsules By Mouth Three Times A Day Montelukast Sodium Take 1 Tablet By Unknown 10mg Tablets Mouth Every Day Sulfamethoxazole-Trimetho Take 1 Tablet By Unknown prim Mouth Every Day 400-80mg Tablets Multivitamin Adult Unknown Tablets History Medications Proair Respiclick Inhale 2 Puffs By Unknown - 07/11/2018 108(90Base) Mouth Four Times A Day mcg/Act Aerosol as Needed Immunizations Description No Information Available Vital Signs Date Vital Result Comment 12/11/2018 2:52pm Weight 166.00 lb Weight 75.298 kg Height 63.5 inches 5'3.50" Height in cm's 161.3 cm BMI (Body Mass Index) 28.9 kg/m2 11/07/2018 2:46pm Weight 166.00 lb Weight 75.298 kg Height 63.5 inches 5'3.50" Height in cm's 161.3 cm BMI (Body Mass Index) 28.9 kg/m2 10/17/2018 2:30pm BP Systolic 155 mmHg BP Diastolic 73 mmHg Heart Rate 65 /min Respiratory Rate 17 /min Weight 166.00 lb Weight 75.298 kg Height 63.5 inches 5'3.50" Height in cm's 161.3 cm BMI (Body Mass Index) 28.9 kg/m2 07/11/2018 2:44pm Weight 165.12 lb Weight 74.901 kg Height 63.5 inches 5'3.50" Height in cm's 161.3 cm BMI (Body Mass Index) 28.8 kg/m2 Results Description No Information Available Procedures Date Code Description Status 12/11/2018 63431 Tympanometry Completed 12/11/2018 81748 Comprehensive Audiogram Completed 11/07/2018 79249 Tympanometry Completed 10/27/2018 30940 Tympanostomy W/Tube, Under General Anes. Completed 07/11/2018 92890 Tympanometry Completed 07/11/2018 93276 Comprehensive Audiogram Completed Encounters Type Date Location Provider Dx Diagnosis Office Visit 12/11/2018 [place],After Miles Villagomez H9Rahat.3 Sensorineural hearing 1:45p 08/15/07 Jacqueline Tolentino loss, bilateral H69.03 Patulous Eustachian tube, bilateral Office Visit 11/20/2018 [place],After Miles Villagomez H69.03 Patulous 2:45p 08/15/07 Jacqueline Tolentino Eustachian tube, bilateral H90.3 Sensorineural hearing loss, bilateral Office Visit 11/07/2018 2:45p [place],After 08/15/07 Yessi Birmingham H69.03 Patulous NAHOMI Rosario Eustachian tube, bilateral G89.4 Chronic pain syndrome Office Visit 10/17/2018 [place],After Miles Villagomez H69.03 Patulous 2:15p 08/15/07 Jacqueline Tolentino Eustachian tube, bilateral G89.4 Chronic pain syndrome Office Visit 07/11/2018 [place],After Miles Villagomez H90.3 Sensorineural 2:30p 08/15/07 Jacqueline Tolentino hearing loss, bilateral H69.01 Patulous Eustachian tube, right ear Plan of Treatment Future Appointment(s):02/26/2019 2:30 pm - Arthur Cuevas MA, [facility] at [place],After 08/15/806 3:00 pm - Miles Tolentino M.D. at [place], After 08/15/803 - Miles Tolentino M.D.H90.3 Sensorineural hearing loss, bilateralComments:The patient returned today because she is having a lot of problems hearing. Her hearing has bene stable since her last appointment but there was the small drop from before the tubes. I can't explain why this happened. There seems to have bene a cause and effect. It seems that it is a sensorineural drop. Some adults don't like tubes because of slight change in their hearing, but I have never seen it to this degree and again can't explain the sensorineural part. She has taken the prednisone and courtney the taper. It made no difference. Our options are to leave the tubes or to remove them. There aresome symptoms that are better after the tubes, but these are overshadowed by her hearing loss. She will decide what to do. My hope is that removing the tubes will help but we would have to do that tosee.H69.03 Patulous Eustachian tube, bilateral
--- NOTE | 2019-01-10 00:23 | ED ---
HPI Cardiac - HPI Summary HPI Summary: This patient is a 78 year old female presenting to [facility] with a chief complaint of hemoptysis. The patient states she has chronic bronchitis but she has felt pretty clear for the last several weeks. She states a couple hours ago she started to cough up blood on about 5 or 6 tissues. She says it was not in copious amounts but enough to come get checked out. The patient also reports lower abdominal pain. She rates the pain 8/10 in severity. Apixaban* [Eliquis*] 5 mg PO BID 02/20/18 [History Confirmed 01/03/19] Cholecalciferol TAB* [Vitamin D TAB*] 2,000 units PO QAM 02/20/18 [History Confirmed 01/03/19] Docusate Sodium [Stool Softener] 250 mg PO QAM 02/20/18 [History Confirmed 01/03] Gabapentin CAP(*) [Neurontin 300 CAP(*)] 600 mg PO BID 02/20/18 [History Confirmed 01/03/19] Hydromorphone ER TAB(NF) [Exalgo (NF)] 12 mg PO BID 02/20/18 [History Confirmed 01/03/19] L.acidoph,Paracasei, B.lactis [Probiotic] 1 each PO BID 02/20/18 [History Confirmed 01/03/19] Levothyroxine TAB* [Synthroid 137 MCG TAB*] 137 mcg PO QAM 02/20/18 [History Confirmed 01/03/19] Montelukast Sodium TAB* [Singulair 10 MG TAB*] 10 mg PO QAM 02/20/18 [History Confirmed 01/03/19] Multivitamins/Minerals TAB* [Theragran/minerals TAB*] 1 tab PO QAM 02/20/18 [ History Confirmed 01/03/19] Telmisartan (NF) [Micardis (NF)] 40 mg PO QPM 02/20/18 [History Confirmed ] DULoxetine DR CAP* [Cymbalta CAP*] 60 mg PO BEDTIME 10/25/18 [History Confirmed 01/03/19] Sulfamethox/Trimethoprim SS* [Bactrim SS 400/80 TAB*] 1 tab PO BEDTIME 10/25/18 [History Confirmed 01/03/19] Ipratropium 0.5MG/2.5ML NEB* [Atrovent 0.5 MG NEB.RADHA*] 1 neb INH .Q4-6H PRN [History Confirmed 01/03/19] Cyanocobalamin TAB* [Vitamin B12 TAB*] 1,000 mcg PO DAILY 01/03/19 [History Confirmed 01/03/19] Dofetilide CAP* [Tikosyn CAP*] 250 mcg PO BID 01/03/19 [History Confirmed ] Fluticasone/Vilanterol MDI(NF) [Breo Ellipta MDI 200/25(NF)] 1 puff INH DAILY [History Confirmed 01/03/19] Hydromorphone HCl [Dilaudid] 4 mg PO Q4HR PRN 01/03/19 [History Confirmed ] Hydroxychloroquine TAB* [Plaquenil TAB*] 400 mg PO DAILY 01/03/19 [History Confirmed 01/03/19] Vitamin A Palmitate [Vitamin A] 10,000 unit PO DAILY 01/03/19 [History Confirmed 01/03/19] amLODIPine TAB* [Norvasc 5 mg TAB*] 10 mg PO DAILY 01/03/19 [History Confirmed 01/03/19] hydrALAZINE TAB* [Apresoline TAB*] 20 mg PO TID 01/03/19 [History Confirmed ] - History of Current Complaint Chief Complaint: EDGeneral Stated Complaint: COUGHING UP BLOOD PER Time Seen by Provider: 01/10/19 00:17 Hx Obtained From: Patient Onset/Duration: Started Hours Ago Pain Intensity: 8 Pain Scale Used: 0-10 Numeric - Additional Pertinent History Primary Care Physician: [id number] - Allergy/Home Medications Allergies/Adverse Reactions: Allergies Allergy/AdvReac Type Severity Reaction Status Date / Time azathioprine Allergy See Comment Verified 01/09/19 23:02 celecoxib [From Celebrex] Allergy Rash Verified 01/09/19 23:02 chlorhexidine Allergy Rash And Verified 01/09/19 23:02 Itching methotrexate Allergy See Comment Verified 01/09/19 23:02 vancomycin Allergy See Comment Verified 01/09/19 23:02 adhesives AdvReac Intermediate Rash Uncoded 01/09/19 23:02 PMH/Surg Hx/FS Hx/Imm Hx Endocrine/Hematology History: Reports: Hx Anticoagulant Therapy - eliquis, Hx Thyroid Disease - hypothyroidism Denies: Hx Blood Disorders, Hx Blood Transfusions, Hx Bone Marrow Disease, Hx Diabetes, Hx Systemic Lupus Erythematosus, Hx Sickle Cell Disease, Hx Anemia , Hx Unexplained Bleeding, Other Endocrine/Hematological Disorders Cardiovascular History: Reports: Hx Atrial Fibrillation - on blood thinner, Hx Hypercholesterolemia, Hx Hypertension, Hx Valvular Heart Disease - Aortic Valve disease, Other Cardiovascular Problems/Disorders - ON BLOOD THINNER MEDICATION PER Denies: Hx Aneurysm, Hx Angina, Hx Angioplasty, Hx Auto Implanted Cardiovert Defib, Hx Cardiac Arrest, Hx Cardiomegaly, Hx Congenital Heart Disease, Hx Congestive Heart Failure, Hx Coronary Artery Disease, Hx Deep Vein Thrombosis, Hx Embolism, Hx Hypotension, Hx Pacemaker/ICD, Hx Peripheral Vascular Disease, Hx Rheumatic Fever, Hx Syncope Respiratory History: Reports: Hx Sleep Apnea, Other Respiratory Problems/ Disorders - Pulmonary HTN Denies: Hx Asthma, Hx Chronic Bronchitis, Hx Chronic Obstructive Pulmonary Disease (COPD) - with chronic bronchitis, Hx Cystic Fibrosis, Hx Lung Cancer, Hx Pleural Effusion, Hx Pneumonia, Hx Pulmonary Edema, Hx Pulmonary Embolism, Hx Seasonal Allergies GI History: Reports: Hx Gastroesophageal Reflux Disease, Hx Ulcer - gerd, Other GI Disorders - CONSTIPATION- DIET CONTROLLED Denies: Hx Cirrhosis, Hx Crohn's Disease, Hx Diverticulosis, Hx Gall Bladder Disease, Hx Gastrointestinal Bleed, Hx Hiatal Hernia, Hx Irritable Bowel, Hx Jaundice, Hx Obstructive Bowel, Hx Ileostomy, Hx Pyloric Stenosis History: Reports: Other Problems/Disorders - UTIs ONCE IN AWHILE, not recent per pt Denies: Hx Dialysis, Hx Renal Disease Musculoskeletal History: Reports: Hx Arthritis, Hx Back Problems, Hx Orthopedic Injury - Right arm reconstruction r/t traumatic injury, Other Musculoskeletal History - Left Fibula Fracture 08/03/16, psoriatic arthritis Denies: Hx Bursitis, Hx Congenital Bone Abnormalities, Hx Fibromyalgia, Hx Gout, Hx Osteoporosis, Hx Scoliosis, Hx Tendonitis Sensory History: Reports: Hx Cataracts, Hx Contacts or Glasses Denies: Hx Eye Injury, Hx Eye Prosthesis, Hx Glaucoma, Hx Legally Blind, Hx Macular Degeneration, Hx Vision Problem, Hx Deafness, Hx Hearing Aid, Hx Hearing Problem, Other Sensory Impairments Opthamlomology History: Reports: Hx Cataracts, Hx Contacts or Glasses Denies: Hx Eye Injury, Hx Eye Prosthesis, Hx Glaucoma, Hx Legally Blind, Hx Macular Degeneration, Hx Vision Problem, Other Sensory Impairments Neurological History: Denies: Hx CVA, Other Neuro Impairments/Disorders - spinal cord deformities Psychiatric History: Reports: Hx Depression, Hx Suicide Attempt, Hx Substance Abuse - EtOH Denies: Hx Anxiety, Hx Attention Deficit Hyperactivity Disorder, Hx Eating Disorder, Hx Panic Disorder, Hx Post Traumatic Stress Disorder, Hx Inpatient Treatment, Hx Community Mental Health Tx, Hx Schizophrenia, Hx Bipolar Disorder , Hx of Violent Episodes Against Others, Other Psychiatric Issues/Disorders - Cancer History Cancer Type, 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 LT FOOT - REPAIR - RECON W/ METAL;. LUMBAR - DISCETOMY, HERNIATION. 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 REN KNEE REPLACEMENTS (1999 & 2009). Rt ELBOW - ARTIFICIAL JOINT AND METAL PLATE ABOVE JOINT;. TONSILECTOMY. APPENDECTOMY,. OVARIAN CYST REMOVED - REN; . Rt MASTECTOMY- W/ RADIATION. LEFT ANKLE x2 (has hardware),. tubal;. EAR TUBES RECENTLY;. 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, 2012 Denies: Hx Clostridium Difficile, Hx Hepatitis, Hx Human Immunodeficiency Virus (HIV), Hx Shingles, Hx Tuberculosis, Hx Known/Suspected VRE, Hx Known/ Suspected VRSA, History Other Infectious Disease, Traveled Outside the [place] in Last 30 Days - Family History Known Family History: Positive: Unknown - not obtained due to confusion AMS, Other - Breast CA - Social History Alcohol Use: Daily Substance Use Type: Reports: None Substance Use Comment - Amount & Last Used: DILAUDID Hx Tobacco Use: Yes Smoking Status (MU): Former Smoker Type: Cigarettes Amount Used/How Often: 5 a day Length of Time of Smoking/Using Tobacco: 15 yrs Have You Smoked in the Last Year: No Review of Systems Positive: Cough - With blood Positive: Abdominal Pain All Other Systems Reviewed And Are Negative: Yes Physical Exam - Summary Physical Exam Summary: Appearance: Well-appearing, Well-nourished, lying in bed comfortably Skin: Warm, dry, no obvious rash Eyes: sclera anicteric, no conjunctival pallor ENT: mucous membranes moist, pharynx appears normal Neck: Supple, nontender Respiratory: Clear to auscultation, no signs of respiratory distress Cardiovascular: Normal S1, S2. No murmurs. Normal distal pulses in tibial and radial bilaterally. Abdomen: Soft, nontender, normal active bowel sounds present Musculoskeletal: Normal, Strength/ROM Intact Neurological: A&Ox3, awake and alert, mentation is normal, speech is fluent and appropriate Psychiatric: affect is normal, does not appear anxious or depressed Triage Information Reviewed: Yes Vital Signs On Initial Exam: Initial Vitals Temp Pulse Resp BP Pulse Ox 96.8 F 75 20 185/94 94 01/09/19 22:55 01/09/19 22:55 01/09/19 22:55 01/09/19 22:55 01/09/19 22:55 Vital Signs Reviewed: Yes Diagnostics - Vital Signs Vital Signs Temp Pulse Resp BP Pulse Ox 01/09/19 22:55 96.8 F 75 20 185/94 94 - Laboratory Result Diagrams: 01/10/19 00:33 01/10/19 00:33 Lab Statement: Any lab studies that have been ordered have been reviewed, and results considered in the medical decision making process. - Radiology CXR Radiology Interpretation Completed By: ED Physician Summary of Radiographic Findings: No acute process. Pending offical radiologist report. - EKG 0030 Cardiac Rate: NL EKG Rhythm: Sinus Rhythm - 78 BPM Ectopy: PACs Summary of EKG Findings: NSR Disposition - Course Course Of Treatment: This patient is a 78 year old female presenting to [facility] with a chief complaint of hemoptysis. EKG and CXR were unremarkable for cardiopulmonary problems. A plan for discharge was discussed with the patient and she was agreeable with this plan. - Diagnoses Provider Diagnoses: Acute bronchitis, Hemoptysis Discharge - Sign-Out/Discharge Documenting (check all that apply): Patient Departure - Discharge Patient Received Moderate/Deep Sedation with Procedure: No - Discharge Plan Prescriptions: DOXYcycline CAP(*) [DOXYcycline 100MG CAP(*)] 100 mg PO BID #20 cap Patient Education Materials: Acute Bronchitis (ED), Hemoptysis (ED) Referrals: Candace Lopez MD [Primary Care Provider] - 1 Week (if not better) Additional Instructions: Your chest x ray and blood work did not show anything very worrisome. The most likely cause of the cough with bleeding is a respiratory infection like bronchitis, superimposed on your chronic lung problems and the blood thinner you take. If it gets a lot worse, we should see you back here, but it is usually does not in this setting. - Attestation Statements Document Initiated by Bello: Yes Documenting Scribe: Fito Jackson Provider For Whom Bello is Documenting (Include Credential): Kartik Scanlon MD Scribe Attestation: I, Fito Jackson, scribed for Kartik Scanlon MD on 01/10/19 at 0211. Status of Scribe Document: Ready
[2019-01-10 00:52] LABS: ABS Eosinophils 0.3 10^3/ul (0-0.6); ABS Lymphocytes 1.6 10^3/ul (1.0-4.8); ABS Monocytes 0.7 10^3/ul (0-0.8); ABS Neutrophils 2.9 10^3/ul (1.5-7.7); Eosinophil % 4.9 %; Hematocrit 39 % (35-47); Hemoglobin 13.4 g/dL (12.0-16.0); Lymphocyte % 29.2 %; Mean Corpuscular HGB Conc 34 g/dL (31-36); Mean Corpuscular Hemoglobin 30 pg (27-31); Mean Corpuscular Volume 88 fL (80-97); Mean Platelet Volume 6.6 fL (7.4-10.4); Nucleated Red Blood Cells % 0.1; Platelet Count 231 10^3/uL (150-450); Red Blood Count 4.43 10^6 /uL (3.70-4.87); Red Cell Distribution Width 15 % (10.5-15); White Blood Count 5.5 10^3/uL (3.5-10.8)
[2019-01-10 01:01] LABS: Albumin/Globulin Ratio 1.7 (1-3); BUN/Creatinine Ratio 19.6 (8-20); Calcium 9.1 mg/dL (8.6-10.3); EGFR Non-African American 131.4 (>60); Globulin 2.4 g/dL (2-4); Potassium 3.7 mmol/L (3.5-5.0); Total Bilirubin 0.6 mg/dL (0.2-1.0); Total Protein 6.4 g/dL (6.4-8.9)
[2019-01-10 02:23] VITALS: BP 170/87
== END 2019-01-10 02:24 | disposition home or self-care (01) ==
LOC: ED 22:53
DX: J20.9 Acute bronchitis, unspecified (principal); R04.2 Hemoptysis; Z87.891 Personal history of nicotine dependence; R10.9 Unspecified abdominal pain; Z86.14 Personal history of Methicillin resistant Staphylococcus aureus infection; K21.0 Gastro-esophageal reflux disease with esophagitis; Z79.01 Long term (current) use of anticoagulants
CPT/HCPCS: 36415; 71046; 80053; 85025; 93005; 99282

== ENCOUNTER 2019-05-29 18:02 | Emergency (ER) | payer MEDICARE, BC ==
--- OUTSIDE RECORDS SUMMARY | 2019-05-29 18:52 | XMS REPORT | Continuity of Care Document ---
:1940 External Reference #:[id number] Author Name Miles Burdick M.D. (transmitted by agent of provider Breana Rivera) Address [address] [place] [id number] Care Team Providers Name Role Phone Guerrero Morgan MD - Rheumatology Care Team Information Electrical Systems Design Engineer Miles Garrett MD - Pulmonary Disease Care Team Information Electrical Systems Design Engineer Iveth Serrano MD - Infectious Care Team Information Electrical Systems Design Engineer [phone] Disease Esmer Maldonado MD - Surgery of the Care Team Information Electrical Systems Design Engineer Hand Enrique Torres MD - Orthopaedic Surgery Care Team Information Electrical Systems Design Engineer [phone] [phone] Nicola Ricardo MD - Infectious Care Team Information Electrical Systems Design Engineer Disease Anabell Carrizales MD - Surgery Care Team Information Electrical Systems Design Engineer [phone] Emi Kunz MD - Hematology & Care Team Information Electrical Systems Design Engineer Oncology Reji Hampton MD - Cardiovascular Care Team Information Electrical Systems Design Engineer [phone] Disease [facility] - Care Team Information Electrical Systems Design Engineer Exercise & Sports Wilber Manuel MD - Care Team Information Electrical Systems Design Engineer [phone] Neurological Surgery Marko Peters M.D. - Neurology Care Team Information Electrical Systems Design Engineer Miles Burdick MD - Rheumatology Care Team Information Electrical Systems Design Engineer [phone] Candace Lopez M.D. - [facility] Medicine Care Team Information Electrical Systems Design Engineer Problems Active Problems Provider Date Common variable agammaglobulinemia Ernst Terry M.D.,FACP Onset: 2015 Simple chronic bronchitis Marleny Norris MD Onset: 12/30/2014 Asthma Ernst Terry M.D.,FACP Onset: 06/19/2018 Note: on PFTs 2014 Psoriasis with arthropathy Ernst Terry M.D.,FACP Onset: 08/03/2007 Paroxysmal atrial fibrillation Ernst Terry M.D.,FACP Onset: 06/03/2016 Aortic valve stenosis Ernst Terry M.D.,FACP Onset: 06/30/2015 Note: moderate-severe Disorder characterized by eosinophilia Ernst Terry M.D.,FACP Onset: Depressive disorder Ernst Terry M.D.,FACP Onset: 08/03/2007 Essential hypertension Carl Griffiths, FAC Onset: 05/20/2015 Ex-smoker Ernst Terry M.D.,FACP Onset: 08/03/2007 Primary pulmonary hypertension Ernst Terry M.D.,FACP Onset: 08/03/2007 Insomnia Ernst Terry M.D.,FACP Onset: 03/22/2008 Mixed hyperlipidemia Ernst Terry M.D.,FACP Onset: 02/05/2009 Central sleep apnea syndrome Ernst Terry M.D.,FACP Onset: 03/10/2009 Hypothyroidism Ernst Terry M.D.,FACP Onset: 02/06/2010 Chronic osteomyelitis of upper arm Ernst Terry M.D.,FACP Onset: 2010 Impaired fasting glycaemia Ernst Terry M.D.,FACP Onset: 02/10/2012 Malignant neoplasm of upper-outer Ernst Terry M.D.,FACP Onset: 2011 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 Onset: 04/24/2014 Eosinophilic esophagitis Marleny Norris MD Onset: 01/20/2015 Mechanical complication of internal Betito Barry MD Onset: 06/17/2015 orthopedic device, implant AND/OR graft Methicillin resistant Staphylococcus Nicola Ricardo M.D. Onset: 2015 aureus Gastroesophageal reflux disease Marleny Norris MD Onset: 04/01/2016 Chronic pain syndrome Marko Peters M.D. Onset: 09/05/2017 Skin sensation disturbance Marko Peters M.D. Onset: 09/05/2017 Localized, primary osteoarthritis of Betito Barry MD Onset: 09/09/2017 elbow Carpal tunnel syndrome of left wrist Betito Barry MD Onset: 10/04/2017 Syringomyelia and syringobulbia Marko Peters M.D. Onset: 01/20/2018 Arthritis mutilans Marko Peters M.D. Onset: 01/20/2018 Spinal stenosis of lumbar region Marko Peters M.D. Onset: 01/20/2018 Headache Marvin Odell, N.P. Onset: 11/24/2018 Social History Type Date Description Comments Sex Unknown Tobacco Use Start: Unknown Former Cigarette for 10-16 years End: Unknown Smoker 1-5 Cigarettes Daily ETOH Use 09/14/2017 Denies alcohol use ETOH Use consumed 2-3 glasses with abuse in the of wine per day past Recreational Drug Use Denies Drug Use Tobacco Use Start: Unknown Patient is a former smoked for 15 years, End: Unknown smoker 5 cigarettes a day, quit in 1984 Smoking Status Reviewed: 04/04/19 Patient is a former smoked for 15 years, smoker 5 cigarettes a day, quit in 1984 Exercise Type/Frequency Exercises rarely Allergies, Adverse Reactions, Alerts Active Allergies Reaction Severity Comments Date Vancomycin red man syndrome 08/03/2007 Celebrex rash 08/03/2007 Methotrexate Boop 01/16/2010 Azathioprine Pres? 01/31/2017 Medications Active Medications SIG Qnty Indications Ordering Date Provider Cefuroxime Axetil one po bid for 20tabs Candace Lopez MD 04/02/2019 500mg 10 days Tablets Lidoderm 1 patch 30units B02.23 Marvin 03/09/2019 5% Patches topically on for Odell, N.P. 12 hrs than off for 12 hours hours to affected area Amoxicillin one by mouth 21tabs Candace Lopez MD 03/08/2019 500mg Tablets three times a day for 7 days Prednisone take 6 tablets 84tabs Candace Lopez MD 02/14/2019 10mg Tablets by mouth daily for 4 days, reduce by 1 tab every 4 days until finished Clarithromycin one by mouth 14tabs Candace Lopez MD 02/14/2019 500mg twice a day for Tablets 7 days Amitriptyline HCL 1-4 AT Bedtime 120tabs B02.29 Candace Lopez MD 01/10/2019 25mg Tablets Hydromorphone HCL one every 4 180tabs Candace Lopez MD 09/26/2018 4mg hours as needed Tablets pain Aerochamber MV use as directed 1units J40 Candace Lopez MD 09/11/2018 Misc with inhaler Ipratropium one vial via neb 540units J20.9 Candace Lopez MD 08/30/2018 Clare/Albuterol every 4-6 hours Sulfate for 0.5-2.5(3)mg/3ML wheezing/coughin Solution g (patient needs 3 month supply) J41.0 Mastectomy Bra use daily as 2units C50.911 Candace Lopez MD 08/02/2018 directed Telmisartan take 1 tablet by 90tabs Candace Lopez MD 06/02/2018 40mg Tablets mouth nightly Vitamin A 1 by mouth every Ernst Brandon 03/06/2018 [id number] marciano Terry M.D.,FACP Capsules Tikosyn take one tablet 180caps Reji Hampton, 03/02/2018 250mcg Capsules twice a day M.D. Amlodipine Besylate 1 by mouth every 90tabs I10 Candace Lopez MD 03/02/2018 10mg day Tablets Compression Stockings please use daily as 2units Miles Burdick, 2017 needed for leg/foot M.D. Misc swelling and venous stasis changes Montelukast Sodium take 1 tablet by 90tabs Candace Lopez MD 11/18/2017 10mg mouth every day Tablets Sulfamethoxazole-Trime 1 tab daily 90tabs Nicola Brandon 09/13/2017 thoprim Jacqueline Ricardo 400-80mg Tablets Motorized Scooter use as directed G89.4 Ernst Brandon 03/25/2017 Jacqueline Terry,FACP I67.83 Plaquenil take 2 tablets by 180tabs L40.50 Miles Burdick, 02/10/2017 200mg Tablets mouth every day M.DDavid Hydromorphone HCL ER 1 by mouth twice a 60units Candace Lopez MD 2016 day 12mg T24a Hydralazine HCL take 2 tabs by mouth 180tabs I10 Fidelia Cotton, 2016 10mg three times a day M.DDavid Tablets Eliquis take 1 tablet by 180tabs Candace Lopez MD 12/13/2016 5mg Tablets mouth two times daily Stool Softener 1 cap po daily Other Ordering 12/09/2016 250mg Provider Capsules BD Pen use as directed with 100units Miles Burdick, 02/06/2016 Needle/Mini/Ultrafine jeny Phillips /31G X 3/16" 31G X 5 mm Misc Nebulizer 1 unit nebulization 1units J41.0 Marleny Norris, 02/27/2015 Kit/Tubing/Mouthpiece every 4- 6 hours as MD needed Kit Multivitamins 1 PO qd 90tabs Ernst Brandon 08/03/2007 Tablets Jacqueline Terry,FACP Breo Ellipta once daily Slava Boyd MD 200-25mcg/Inh Aerosol Vitamin D3 1 by mouth every day Unknown 2000Unit Capsules Cymbalta 3 caps daily 270caps F32.9 Candace Lopez MD 30mg Caps DR Part Vitamin B12 1 by mouth every day Unknown 1000mcg Tablets ER Levothyroxine Sodium 1 by mouth every day 90tabs Candace Lopez MD 137mcg Tablets Probiotic 1 by mouth bid Unknown Capsules History Medications Cipro 1 tab twice a 14tabs Candace Lopez MD 12/28/2018 - 500mg Tablets day for 7 days 01/03/2019 Valacyclovir HCL 1 tab PO every 8 21tabs B02.9 Talya Alvares, 12/25/2018 - 1gm hours X 7 Days M.D. 01/01/2019 Tablets Cipro 1 tab twice a 14tabs Candace Lopez MD 12/22/2018 - 500mg Tablets day for 7 days 12/25/2018 Macrobid 1 by mouth twice 14caps Candace Lopez MD 12/22/2018 - 100mg Capsules a day x 7 days 12/29/2018 Prednisone take tapering 30tabs Cadnace Lopez MD 12/08/2018 - 10mg Tablets dose as directed 12/25/2018 Clarithromycin one by mouth 14tabs Candace Lopez MD 11/27/2018 - 500mg twice a day for 12/25/2018 Tablets 7 days Medications Administered in Office Medication SIG Qnty Indications Ordering Provider Date Triamcinolone (Kenalog) Betito Barry MD 07/18/2018 Injection Triamcinolone (Kenalog) Betito Barry MD 05/18/2018 Injection Triamcinolone (Kenalog) Betito Barry MD 01/19/2018 Injection Triamcinolone (Kenalog) Betito Barry MD 09/09/2017 Injection Immunizations CPT Code Status Date Vaccine Lot # [id number] Given 05/10/2018 Influenza Virus Vaccine, Quadrivalent, Split, [id number] Preservative Free 36536 Given 07/01/2017 Influenza Virus Vaccine, Quadrivalent, Split, [id number] Preservative Free 47868 Given 05/11/2016 Influenza Virus Vaccine, Quadrivalent, Split, [id number] Preservative Free 01502 Given 06/17/2015 Influenza Virus 3Yrs & Over 16468 Given 05/01/2015 Influenza Virus Vaccine, Quadrivalent, Split, [id number] Preservative Free [id number] Given 12/30/2014 Fluvirin Im 3Yrs And Older 08132 Given 06/13/2014 Pneumococcal Conjugate Vaccine 13 Valent For [id number] Intramuscular Use 32584 Given 06/13/2014 Flu Vaccine Split Virus Preservative Free For [id number] Indiv 3Yr Older 64925 Given 05/16/2013 Flu Vaccine Split Virus Preservative Free For [id number] Indiv 3Yr Older Q2037 Given 05/20/2012 Fluvirin Im 3Yrs And Older 41834 Given 02/29/2012 Zoster (Zostavax) [id number] 84023 Given 02/10/2012 Pneumonia Vaccine [id number] Q2038 Given 06/05/2011 Fluzone Vaccine [id number] 23067 Given 06/25/2010 Influenza Virus 3Yrs & Over 37005 Given 07/25/2009 Influenza Virus Vaccine, Pandemic Formulation [id number] 28857 Given 08/15/2006 Td (History By Patient) Vital Signs Date Vital Result Comment 04/04/2019 11:37am Height 63.5 inches 5'3.50" Weight 164.00 lb Heart Rate 64 /min BP Systolic Sitting 136 mmHg BP Diastolic Sitting 64 mmHg Body Temperature 98.3 F Pain Level 4 O2 % BldC Oximetry 98 % BMI (Body Mass Index) 28.6 kg/m2 03/09/2019 2:48pm Height 63.5 inches 5'3.50" Heart Rate 60 /min BP Systolic Sitting 126 mmHg BP Diastolic Sitting 68 mmHg Respiratory Rate 20 /min Results Test Date Facility Test Result H/L Range Note Urinalysis Profile 03/07/2019 [facility] Urine Color Candace [address] [place] [address] [phone] Urine Appearance Turbid Urine Specific [place] 1.010 Normal 1.010-1.030 Urine pH 8.0 Normal 5-9 Urine Urobilinogen Negative Negative Urine Ketones Negative Negative Urine Protein 1+(30 mg/dL) Abnormal Negative Urine Leukocytes 3+ Abnormal Negative Urine Blood 2+ Abnormal Negative Urine Nitrite Positive Abnormal Negative Urine Bilirubin Negative Negative Urine Glucose Negative Negative Urine White Blood Cell 3+(>20/hpf) Abnormal Absent Urine Red Blood Cell 3+(>10/hpf) Abnormal Absent Urine Bacteria 1+ Abnormal Absent Urine Culture And 03/07/2019 [facility] Urine SEE RESULT [address] [place] [address] [phone] CBC Auto Diff 01/10/2019 [facility] White Blood 5.5 10^3/uL Normal 3.5-[address] Count 0.8 [place] [address] [phone] Red Blood Count 4.43 10^6/uL Normal 3.70-4.87 Hemoglobin 13.4 g/dL Normal 12.0-16.0 Hematocrit 39 % Normal 35-47 Mean Corpuscular Volume 88 fL Normal 80-97 Mean Corpuscular Hemoglobin 30 pg Normal 27-31 Mean Corpuscular HGB Conc 34 g/dL Normal 31-36 Red Cell Distribution Width 15 % Normal 10.5-15 Platelet Count 231 10^3/uL Normal 150-450 Mean Platelet Volume 6.6 fL Low 7.4-10.4 Abs Neutrophils 2.9 10^3/uL Normal 1.5-7.7 Abs Lymphocytes 1.6 10^3/uL Normal 1.0-4.8 Abs Monocytes 0.7 10^3/uL Normal 0-0.8 Abs Eosinophils 0.3 10^3/uL Normal 0-0.6 Abs Basophils 0.0 10^3/uL Normal 0-0.2 Abs Nucleated RBC 0.0 10^3/uL Granulocyte % 52.2 % Lymphocyte % 29.2 % Monocyte % 13.0 % Eosinophil % 4.9 % Basophil % 0.7 % Nucleated Red Blood Cells % 0.1 Comp Metabolic Panel 01/10/2019 [facility] Sodium 133 mmol/L Low 135-145 [address] [place] [address] [phone] Potassium 3.7 mmol/L Normal 3.5-5.0 Chloride 98 mmol/L Low 101-111 Co2 Carbon Dioxide 29 mmol/L Normal 22-32 Anion Gap 6 mmol/L Normal 2-11 Glucose 118 mg/dL High 70-100 Blood Urea Nitrogen 9 mg/dL Normal 6-24 Creatinine 0.46 mg/dL Low 0.51-0.95 BUN/Creatinine Ratio 19.6 Normal 8-20 Calcium 9.1 mg/dL Normal 8.6-10.3 Total Protein 6.4 g/dL Normal 6.4-8.9 Albumin 4.0 g/dL Normal 3.2-5.2 Globulin 2.4 g/dL Normal 2-4 Albumin/Globulin Ratio 1.7 Normal 1-3 Total Bilirubin 0.60 mg/dL Normal 0.2-1.0 Alkaline Phosphatase 60 U/L Normal 34-104 Alt 18 U/L Normal 7-52 Ast 26 U/L Normal 13-39 Egfr Non- 131.4 >60 Egfr 159.0 >60 3 Comp Metabolic Panel 01/03/2019 [facility] Sodium 132 mmol/L Low 135-[address] [place] [address] [phone] Potassium 4.3 mmol/L Normal 3.5-5.0 Chloride 100 mmol/L Low 101-111 Co2 Carbon Dioxide 26 mmol/L Normal 22-32 Anion Gap 6 mmol/L Normal 2-11 Glucose 87 mg/dL Normal 70-100 Blood Urea Nitrogen 8 mg/dL Normal 6-24 Creatinine 0.46 mg/dL Low 0.51-0.95 BUN/Creatinine Ratio 17.4 Normal 8-20 Calcium 9.2 mg/dL Normal 8.6-10.3 Total Protein 6.7 g/dL Normal 6.4-8.9 Albumin 4.2 g/dL Normal 3.2-5.2 Globulin 2.5 g/dL Normal 2-4 Albumin/Globulin Ratio 1.7 Normal 1-3 Total Bilirubin 0.50 mg/dL Normal 0.2-1.0 Alkaline Phosphatase 59 U/L Normal 34-104 Alt 24 U/L Normal 7-52 Ast 33 U/L Normal 13-39 Egfr Non- 131.4 >60 Egfr 159.0 >60 4 Laboratory test 01/03/2019 [facility] Magnesium 1.9 mg/dL Normal 1.9-2.[address] [place] [address] [phone] CBC Auto Diff 01/03/2019 [facility] White Blood 5.1 Normal 3.5 -10.[address] Count 10^3/[place] [address] [phone] Red Blood Count 4.64 10^6/uL Normal 3.70-4.87 Hemoglobin 13.9 g/dL Normal 12.0-16.0 Hematocrit 41 % Normal 35-47 Mean Corpuscular Volume 89 fL Normal 80-97 Mean Corpuscular Hemoglobin 30 pg Normal 27-31 Mean Corpuscular HGB Conc 34 g/dL Normal 31-36 Red Cell Distribution Width 14 % Normal 10.5-15 Platelet Count 235 10^3/uL Normal 150-450 Mean Platelet Volume 6.3 fL Low 7.4-10.4 Abs Neutrophils 3.2 10^3/uL Normal 1.5-7.7 Abs Lymphocytes 1.3 10^3/uL Normal 1.0-4.8 Abs Monocytes 0.4 10^3/uL Normal 0-0.8 Abs Eosinophils 0.2 10^3/uL Normal 0-0.6 Abs Basophils 0.0 10^3/uL Normal 0-0.2 Abs Nucleated RBC 0.0 10^3/uL Granulocyte % 63.3 % Lymphocyte % 25.5 % Monocyte % 6.9 % Eosinophil % 3.8 % Basophil % 0.5 % Nucleated Red Blood Cells % 0.0 Urinalysis Profile 01/03/2019 [facility] Urine Color Yellow [address] [place] [address] [phone] Urine Appearance Cloudy Urine Specific [place] 1.015 Normal 1.010-1.030 Urine pH 6.0 Normal 5-9 Urine Urobilinogen Negative Negative Urine Ketones Negative Negative Urine Protein Negative Negative Urine Leukocytes Negative Negative Urine Blood Negative Negative Urine Nitrite Negative Negative Urine Bilirubin Negative Negative Urine Glucose Negative Negative Urine Culture And 12/22/2018 [facility] Urine Culture SEE RESULT [address] [place] [address] [phone] Ua Routine 12/22/2018 [facility] Ua Specific 1.000 [place] Ua PH 7 Ua Color YELLOW Ua Appera CLOUDY Ua WBC LARGE Ua Protein TRACE Ua Glucose NORM Ua Ketones NEG Ua Bilirubin NEG Ua Urobilinogen NEG Ua Nitrite + Ua Occult Blood TRACE Basic Metabolic 10/16/2018 [facility] Sodium 137 mmol/L Normal 135-[address] [place] [address] [phone] Potassium 4.4 mmol/L Normal 3.5-5.0 Chloride 100 mmol/L Low 101-111 Co2 Carbon Dioxide 29 mmol/L Normal 22-32 Anion Gap 8 mmol/L Normal 2-11 Glucose 103 mg/dL High 70-100 Blood Urea Nitrogen 12 mg/dL Normal 6-24 Creatinine 0.61 mg/dL Normal 0.51-0.95 BUN/Creatinine Ratio 19.7 Normal 8-20 Calcium 9.4 mg/dL Normal 8.6-10.3 Egfr Non- 94.9 >60 Egfr 114.8 >60 6 1 treated with appropriate abx 2 SEE RESULT BELOW Name: DANA GUSMAN : [address]: Candace Lopez MD Acct: [id number] Unit: [id number] AGE: 78 Location: [facility] Re03/07/19 SEX: F Status: REG REF SPEC: [id number] MARIA DE JESUS: 03/07/[address] [facility] [address]: Candace Lopez MD REQ: [id number] RECD: 03/07/19 STATUS: COMP _ SOURCE: URINE SPDESC: ORDERED: Urine Culture Procedure Result Reported Site Urine Culture Final 03/09/19- 920 ML Organism 1 ESCHERICHIA COLI [place] Count >100,000 (Many) CFU/ML 1. ESCHERICHIA COLI [facility].I[facility]. RX --------- ------ Ampicillin <=2 S Cefazolin <=4 S Cefepime <=1 S Ceftriaxone <=1 S Ciprofloxacin <=0.25 S Gentamicin <=1 S Levofloxacin <=0.12 S Meropenem <=0.25 S Nitrofurantoin <=16 S Tetracycline <=1 S Pipercillin/Tazobactam <=4 S Trimethoprim/Sulfamethoxazole >=320 R Amoxicillin/Clavulanic Acid <=2 S Aztreonam <=1 S Contact the Microbiology Department for any additional antibiotic reporting. * ML - Main Lab . END OF REPORT DEPARTMENT OF PATHOLOGY, [address] [place] [address] Naldo Palomo M.D. Director [facility] # [id number] 3 Because ethnic data is not always readily available, this report includes an eGFR for both -Americans and non- Americans. The National Kidney Disease Education Program (NKDEP) does not endorse the use of the MDRD equation for patients that are not between the ages of 18 and 70, are , have extremes of body size, muscle mass, or nutritional status, or are non- or non-. According to the National Kidney Foundation, irrespective of diagnosis, the stage of the disease is based on the level of kidney function: Stage Description GFR(mL/min/1.73 m(2)) 1 Kidney damage with normal or decreased GFR 90 2 Kidney damage with mild decrease in GFR 60-89 3 Moderate decrease in GFR 30-59 4 Severe decrease in GFR 15-29 5 Kidney failure <15 (or dialysis) 4 Because ethnic data is not always readily available, this report includes an eGFR for both -Americans and non- Americans. The National Kidney Disease Education Program (NKDEP) does not endorse the use of the MDRD equation for patients that are not between the ages of 18 and 70, are , have extremes of body size, muscle mass, or nutritional status, or are non- or non-. According to the National Kidney Foundation, irrespective of diagnosis, the stage of the disease is based on the level of kidney function: Stage Description GFR(mL/min/1.73 m(2)) 1 Kidney damage with normal or decreased GFR 90 2 Kidney damage with mild decrease in GFR 60-89 3 Moderate decrease in GFR 30-59 4 Severe decrease in GFR 15-29 5 Kidney failure <15 (or dialysis) 5 SEE RESULT BELOW Name: DANA GUSMAN : [address]: Candace Lopez MD Acct: [id number] Unit: [id number] AGE: 78 Location: [facility] Re12/22/18 SEX: F Status: REG REF SPEC: [id number] MARIA DE JESUS: 12/22/[address] [facility] [address]: Candace Lopez MD REQ: [id number] RECD: 12/22/18 STATUS: COMP _ SOURCE: URINE SPDESC: ORDERED: Urine Culture COMMENTS: [id number] Urine Source: Random Procedure Result Reported Site Urine Culture Final 12/25/18- 0832 ML Organism 1 ESCHERICHIA COLI [place] Count >100,000 (Many) CFU/ML 1. ESCHERICHIA COLI M.I.C. RX --------- ------ Ampicillin 4 S Cefazolin <=4 S Cefepime <=1 S Ceftriaxone <=1 S Ciprofloxacin <=0.25 S Gentamicin <=1 S Levofloxacin <=0.12 S Meropenem <=0.25 S Nitrofurantoin <=16 S Tetracycline <=1 S Pipercillin/Tazobactam <=4 S Trimethoprim/Sulfamethoxazole >=320 R Amoxicillin/Clavulanic Acid <=2 S Aztreonam <=1 S Contact the Microbiology Department for any additional antibiotic reporting. * ML - Main Lab . END OF REPORT DEPARTMENT OF PATHOLOGY, [address] [place] [address] Naldo Palomo M.D. Director [facility] # [id number] 6 Because ethnic data is not always readily available, this report includes an eGFR for both -Americans and non- Americans. The National Kidney Disease Education Program (NKDEP) does not endorse the use of the MDRD equation for patients that are not between the ages of 18 and 70, are , have extremes of body size, muscle mass, or nutritional status, or are non- or non-. According to the National Kidney Foundation, irrespective of diagnosis, the stage of the disease is based on the level of kidney function: Stage Description GFR(mL/min/1.73 m(2)) 1 Kidney damage with normal or decreased GFR 90 2 Kidney damage with mild decrease in GFR 60-89 3 Moderate decrease in GFR 30-59 4 Severe decrease in GFR 15-29 5 Kidney failure <15 (or dialysis) Procedures Date Code Description Status 01/29/2019 349064224 Diabetic Retinal Eye Exam Completed 10/24/2018 40795 Diffusing Capacity Completed 10/24/2018 75185 Plethysmography Determination Lung Volumes & Per Completed Airway Resist 10/24/2018 34292 Pulmonary Function><Bronchodil Completed 04/21/2017 [id number] Mammogram Completed 02/21/2017 [id number] Diabetic Retinal Eye Exam Completed 10/28/2016 [id number] Diabetic Retinal Eye Exam Completed 04/20/2016 [id number] Mammogram Completed 04/23/2015 [id number] Bone Mineral Density Test Completed 04/23/2015 51432640 Mammogram Completed 04/09/2015 [id number] Mammogram Completed 12/28/2013 [id number] Mammogram Completed 03/27/2012 13237540 Mammogram Completed 02/23/2012 [id number] Mammogram Completed 02/23/2012 847850656 Bone Mineral Density Test Completed 03/21/2008 [id number] Mammogram Completed 08/15/2002 [id number] Colonoscopy Completed Medical Devices Description No Information Available Encounters Type Date Location Provider Dx Diagnosis Office Visit 03/09/2019 [facility] Marvin Odell, G95.0 Syringomyelia and 3:00p [facility] 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 B02.9 Zoster without complications Office Visit 12/25/2018 11:30a [facility] Internal [facility] Giorgio, N30.00 [facility] without hematuria B02.9 Zoster without complications Office Visit 11/27/2018 [facility] Ina Stephanie T84.7xxD Infect/ inflm 2:30p For Infectious [place], [employer] LOADER react due to oth Diseases int orth prosth dev/grft, subs Z79.2 senior living (current) use of antibiotics Office Visit 11/24/2018 9:30a [facility] Marvin M48.061 Spinal stenosis, Neurologic Odell, N.P. 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 04/04/2019 M81.8 Other osteoporosis without current Miles Burdick M.D. pathological fracture 04/04/2019 Z79.899 Other health club attendant (current) drug Miles Burdick M.D. therapy 04/04/2019 M19.049 Primary osteoarthritis, unspecified Miles Burdick M.D. 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 03/09/2019 R51 Headache Marvin Odell, N.P. 03/09/2019 M48.061 Spinal stenosis, lumbar region Marvinjacquelyn Odell, N.P. without neurogenic claudicati 03/09/2019 M54.6 Pain in thoracic spine Marvin Odell, N.P. 03/09/2019 R32 Unspecified urinary incontinence Marvin Odell, N.P. 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 01/10/2019 R04.2 Hemoptysis Candace Lopez MD 01/10/2019 B02.29 Other postherpetic nervous system Candace Lopez MD involvement 01/10/2019 J41.0 Simple chronic bronchitis Candace Lopez MD 01/10/2019 G89.4 Chronic pain syndrome Candace Lopez MD 01/10/2019 F33.1 Major depressive disorder, Candace Lopez MD recurrent, moderate 01/03/2019 R10.32 Left lower quadrant pain Talya Alvares M.D. 01/03/2019 B02.9 Zoster without complications Talya Alvares M.D. 12/25/2018 N30.00 Acute cystitis without hematuria Talya Alvares M.D. 12/25/2018 B02.9 Zoster without complications Talya Alvares M.D. 12/22/2018 R30.0 Dysuria Nurse Visit A 12/22/2018 M54.5 Low back pain Nurse Visit A 11/27/2018 T84.7xxD Infection and inflammatory reaction Ina Valle NP due to other internal or 11/27/2018 Z79.2 senior living (current) use of Ina Valle NP antibiotics 11/24/2018 M48.061 Spinal stenosis, lumbar region Marvin Odell, N.P. without neurogenic claudicati 11/24/2018 R51 Headache Marvin Odell, N.P. 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 11/24/2018 M54.6 Pain in thoracic spine Marvin Odell, N.P. 11/24/2018 R32 Unspecified urinary incontinence Marvin Odell N.P. 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 at [facility]06/15/2019 1:45 pm - Marko Peters M.D. at [facility]04/04/2019 - Miles Burdick M.D.L40.52 Psoriatic arthritis vzdqovnnY21.8 Other osteoporosis without current pathological abcyjgmgY84.899 Other skilled nursing (current) drug kkpxedgA95.049 Primary osteoarthritis, unspecified handFollow up:Follow up in 6 to 9 months or sooner if needed Functional Status Functional Condition Comment Date Status Standard cane is used to ambulate Active Mental Status Description No Information Available Referrals Refer to Dr Reason for Referral Status Appt Date Other Physician Practices REF: DR. LLOYD FELIPE [facility] PHONE: [phone] FAX: [phone] Param Tavarez MD pls evaluate pt with severe chronic pain who is Sent interested in medical cannabis [address] [place] [address] [phone] Chris Childs MD Sent [address] [place] [address] [phone]
--- OUTSIDE RECORDS SUMMARY | 2019-05-29 18:52 | XMS REPORT | Continuity of Care Document ---
:1940 External Reference #:[id number] Author Name Dunia Cee MD (transmitted by agent of provider Laurie Avendano) Address [address], [address] [place] [address] Care Team Providers Name Role Phone Guerrero Morgan MD - Rheumatology Care Team Information Family Resource Management Professor Miles Garrett MD - Pulmonary Disease Care Team Information Family Resource Management Professor Iveth Serrano MD - Infectious Care Team Information Family Resource Management Professor Disease Esmer Maldonado MD - Surgery of the Care Team Information Family Resource Management Professor Hand Enrique Torres MD - Orthopaedic Surgery Care Team Information Family Resource Management Professor of the Spine Nicola Ricardo MD - Infectious Care Team Information Family Resource Management Professor Disease Anabell Carrizales MD - Surgery Care Team Information Family Resource Management Professor Emi Kunz MD - Hematology & Care Team Information Family Resource Management Professor Oncology Reji Hampton MD - Cardiovascular Care Team Information Family Resource Management Professor [phone] Disease [facility] - Care Team Information Family Resource Management Professor Exercise & Sports Wilber Manuel MD - Care Team Information Family Resource Management Professor [phone] Neurological Surgery Marko Peters M.D. - Neurology Care Team Information Family Resource Management Professor Miles Burdick MD - Rheumatology Care Team Information Family Resource Management Professor [phone] Candace Lopez M.D. - Family Medicine Care Team Information Family Resource Management Professor Problems Active Problems Provider Date Common variable [...] M.D.,FACP Onset: 08/03/2007 Essential hypertension Carl Griffiths, FACC Onset: 05/20/2015 Ex-smoker Ernst Terry M.D.,FACP Onset: [...] Peters M.D. 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 01/31/2017 Medications Active Medications SIG Qnty Indications Ordering Date Provider Lidoderm 1 patch 30units B02.23 Marvin 03/09/2019 5% Patches topically on for Jose R, N.P. 12 hrs than off for 12 hours hours to affected area Prednisone Take 6 Tablets 84tabs Candace Lopez MD 02/14/2019 10mg Tablets By Mouth Daily For 4 Days, Reduce By 1 Tablet Every 4 Days Until Finished Clarithromycin one by mouth 14tabs Candace Lopez [...] neb 540units J20.9 Candace Lopez MD 08/30/2018 [place]/Albuterol every 4-6 hours Sulfate for 0.5-2.5(3)mg/3ML wheezing/coughin Solution g (patient needs 3 month supply) J41.0 Mastectomy Bra use daily as 2units C50.911 Candace Lopez MD 08/02/2018 directed Proair Respiclick 2 puffs four times 1units J41.0 Candace Lopez MD 2017 a day as needed 108(90Base) mcg/Act Aerosol Telmisartan take 1 tablet by 90tabs Candace Lopez MD 06/02/2018 40mg Tablets mouth nightly Vitamin A 1 by mouth every Ernst Brandon 03/06/2018 [id number] marciano Terry M.D.,FACP Capsules Tikosyn take one tablet 180caps Reji Hampton, 03/02/2018 250mcg Capsules twice a day M.D. Amlodipine Besylate 1 by mouth every 90tabs I10 Candace Lopez MD 03/02/2018 10mg day Tablets Compression Stockings please use daily as 2units Miles Burdick, 2017 needed for leg/foot M.D. Misc swelling and venous stasis changes Montelukast Sodium take 1 tablet by 90tabs Candaec Lopez MD 11/18/2017 10mg mouth every day Tablets Sulfamethoxazole-Trime 1 tab daily 90tabs Nicola Brandon 09/13/2017 thoprim Macqueen, M.D. 400-80mg Tablets Motorized Scooter use as directed G89.4 Ernst Brandon 03/25/2017 Jacqueline Terry,FACP I67.83 Plaquenil take 2 tablets by 180tabs L40.50 Miles Lopesdor, 02/10/2017 200mg Tablets mouth every day M.D. Hydromorphone HCL ER 1 by mouth twice a 60units Candace Lopez MD 2016 12mg day T24a Hydralazine HCL take 2 tabs by mouth 180tabs I10 Fidelia Cr, 2016 10mg three times a day M.D. Tablets Eliquis take 1 tablet by 180tabs Candace Lpoez MD 12/13/2016 5mg Tablets mouth two times daily Stool Softener 1 cap po daily Other Ordering 12/09/2016 250mg Provider Capsules Nebulizer 1 unit nebulization 1units J41.0 Marleny Myrna, 02/27/2015 Kit/Tubing/Mouthpiece every 4- 6 hours as MD needed Kit Multivitamins 1 PO qd 90tabs Ernst Brandon 08/03/2007 Tablets Jacqueline Terry,FACP Breo Ellipta once daily Slava Boyd MD 200-25mcg/Inh Aerosol Cymbalta 3 caps daily 270caps F32.9 Candace Lopez MD 30mg Caps DR Tena Vitamin B12 1 by mouth every day Unknown 1000mcg Tablets ER Levothyroxine Sodium 1 by mouth every day 90tabs Candace Lopez MD 137mcg Tablets Probiotic 1 by mouth bid Unknown Capsules History Medications Cefuroxime Axetil one po bid for 20tabs Candace Lopez MD 04/02/2019 - 500mg 10 days 04/26/2019 Tablets Amoxicillin one by mouth 21tabs Candace Lopez MD 03/08/2019 - 500mg Tablets three times a 04/26/2019 day for 7 days Cipro 1 tab twice a 14tabs Candace [...] 7 days 12/29/2018 Prednisone take tapering 30tabs Candace Lopez MD 12/08/2018 - 10mg Tablets dose [...] CPT Code Status Date Vaccine Lot # [id number] Given 05/10/2018 Influenza Virus Vaccine, Quadrivalent, Split, [id number] Preservative Free 27140 Given 07/01/2017 Influenza Virus Vaccine, Quadrivalent, Split, [id number] Preservative Free 16334 Given 05/11/2016 Influenza Virus Vaccine, Quadrivalent, Split, [id number] Preservative Free 43773 Given 06/17/2015 Influenza Virus 3Yrs & Over 06861 Given 05/01/2015 Influenza Virus Vaccine, Quadrivalent, Split, [id number] Preservative Free [id number] Given 12/30/2014 Fluvirin Im 3Yrs And Older 82718 Given 06/13/2014 Pneumococcal Conjugate Vaccine 13 Valent For [id number] Intramuscular Use 28452 Given 06/13/2014 Flu Vaccine Split Virus Preservative Free For [id number] Indiv 3Yr Older 40693 Given 05/16/2013 Flu Vaccine Split Virus Preservative Free For [id number] Indiv 3Yr Older Q2037 Given 05/20/2012 Fluvirin Im 3Yrs And Older 86213 Given 02/29/2012 Zoster (Zostavax) [id number] 14418 Given 02/10/2012 Pneumonia Vaccine [id number] Q2038 Given 06/05/2011 Fluzone Vaccine [id number] 77784 Given 06/25/2010 Influenza Virus 3Yrs & Over 51015 Given 07/25/2009 Influenza Virus Vaccine, Pandemic Formulation [id number] 13205 Given 08/15/2006 Td (History By Patient) Vital Signs Date Vital Result Comment 04/26/2019 2:54pm Height 63.5 inches 5'3.50" Weight 162.00 lb Heart Rate 60 /min BP Systolic Sitting 163 mmHg BP Diastolic Sitting 81 mmHg Body Temperature 97.4 F Pain Level 8 comes and goes with having shingles O2 % BldC Oximetry 97 % BMI (Body Mass Index) 28.2 kg/m2 04/04/2019 11:37am Height 63.5 inches 5'3.50" Weight 164.00 lb Heart Rate 64 /min BP Systolic Sitting 136 mmHg BP Diastolic Sitting 64 mmHg Body Temperature 98.3 F Pain Level 4 O2 % BldC Oximetry 98 % BMI (Body Mass Index) 28.6 kg/m2 Results Test Date Facility Test Result H/L Range Note Urine Culture And 04/25/2019 [facility] Urine Culture SEE RESULT [address] [place] [address] [phone] Urinalysis Profile 03/07/2019 [facility] Urine Color Candace [address] [place] [address] [phone] Urine Appearance Turbid Urine Specific Marble 1.010 Normal 1.010-1.030 Urine pH 8.0 Normal [...] 1+ Abnormal Absent Urine Culture And 03/07/2019 [facility] Urine SEE RESULT [address] [place] [address] [phone] CBC Auto Diff 01/10/2019 [facility] White Blood 5.5 10^3/uL Normal 3.5-[address] Count 0.8 [place] [address] [phone] Red Blood Count 4.43 10^6/uL Normal 3.70-4.87 [...] Cells % 0.1 Comp Metabolic Panel 01/10/2019 [facility] Sodium 133 mmol/L Low 135-[address] [place] [address] [phone] Potassium 3.7 mmol/L Normal 3.5-5.0 Chloride 98 [...] Non- 131.4 >60 Egfr 159.0 >60 4 Comp Metabolic Panel 01/03/2019 [facility] Sodium 132 mmol/L Low 135-[address] [place] [address] [phone] Potassium 4.3 mmol/L Normal 3.5-5.0 Chloride 100 [...] Egfr Non- 131.4 >60 Egfr 159.0 >60 5 Laboratory test 01/03/2019 [facility] Magnesium 1.9 mg/dL Normal 1.9-2.[address] [place] [address] [phone] CBC Auto Diff 01/03/2019 [facility] White Blood 5.1 Normal 3.5 -10.[address] Count 10^3/[place] [address] [phone] Red Blood Count 4.64 10^6/uL Normal 3.70-4.87 [...] Blood Cells % 0.0 Urinalysis Profile 01/03/2019 [facility] Urine Color Yellow [address] [place] [address] [phone] Urine Appearance Cloudy Urine Specific Marble 1.015 Normal 1.010-1.030 Urine pH 6.0 Normal 5-9 Urine Urobilinogen Negative Negative Urine Ketones Negative Negative Urine Protein Negative Negative Urine Leukocytes Negative Negative Urine Blood Negative Negative Urine Nitrite Negative Negative Urine Bilirubin Negative Negative Urine Glucose Negative Negative Urine Culture And 12/22/2018 [facility] Urine Culture SEE RESULT [address] [place] [address] [phone] Ua Routine 12/22/2018 [facility] Ua Specific 1.000 Marble Ua PH 7 Ua Color YELLOW Ua Appera CLOUDY Ua WBC LARGE Ua Protein TRACE Ua Glucose NORM Ua Ketones NEG Ua Bilirubin NEG Ua Urobilinogen NEG Ua Nitrite + Ua Occult Blood TRACE 1 SEE RESULT BELOW Name: DANA GUSMAN : [address]: Candace Lopez MD Acct: [id number] Unit: [id number] AGE: 78 Location: [facility] Re04/25/19 SEX: F Status: REG REF SPEC: [id number] MARIA DE JESUS: 04/25/[address]: Candace Lopez MD REQ: [id number] RECD: 04/25/19 STATUS: RES _ SOURCE: URINE SPDESC: ORDERED: Urine Culture Urine Source: Random Procedure Result Reported Site Urine Culture Preliminary 04/26/19- 1038 ML Organism 1 ESCHERICHIA COLI Hiddenite Count >100,000 (Many) CFU/ML * ML - Main Lab . END OF REPORT DEPARTMENT OF PATHOLOGY, [address] [place] [address] Naldo Palomo M.D. Director [facility] # [id number] 2 treated with appropriate abx 3 SEE RESULT BELOW Name: ONEIL GUSMANMARJ Mccabe : [address]: Candace Lopez MD Acct: [id number] Unit: [id number] AGE: 78 Location: [facility] Re03/07/19 SEX: F Status: REG REF SPEC: [id number] MARIA DE JESUS: 03/07/19-[address]: Candace Lopez MD REQ: [id number] RECD: 03/07/19 STATUS: COMP _ SOURCE: URINE SPDESC: ORDERED: Urine Culture Procedure Result Reported Site Urine Culture Final 03/09/19- 920 ML Organism 1 ESCHERICHIA COLI Hidden[place] Count >100,000 (Many) CFU/ML 1. ESCHERICHIA COLI [...] . END OF REPORT DEPARTMENT OF PATHOLOGY, [address] [place] [address] Naldo Palomo M.D. Director [facility] # [id number] 4 Because ethnic data is not always [...] 5 Kidney failure <15 (or dialysis) 5 Because ethnic data is not always readily [...] 15-29 5 Kidney failure <15 (or dialysis) 6 SEE RESULT BELOW Name: DANA GUSMAN : [address]: Candace Lopez MD Acct: [id number] Unit: [id number] AGE: 78 Location: [facility] Re12/22/18 SEX: F Status: REG REF SPEC: [id number] MARIA DE JESUS: 12/22/18-[address] [facility] [address]: Candace Lopez MD REQ: [id number] RECD: 12/22/18 STATUS: COMP _ SOURCE: URINE [facility]: ORDERED: Urine Culture COMMENTS: [id number] Urine Source: Random Procedure Result Reported Site Urine Culture Final 12/25/18- 0832 ML Organism 1 ESCHERICHIA COLI [place] Count >100,000 (Many) CFU/ML 1. ESCHERICHIA COLI [...] . END OF REPORT DEPARTMENT OF PATHOLOGY, [address] [place] [address] Naldo Palomo M.D. Director [facility] # [id number] Procedures Date Code Description Status 01/29/2019 351917125 Diabetic Retinal Eye Exam Completed 04/21/2017 18423560 Mammogram Completed 02/21/2017 015438436 Diabetic Retinal Eye Exam Completed 04/20/2016 52387175 Mammogram Completed 04/23/2015 167164913 Bone Mineral Density Test Completed 04/23/2015 79422561 Mammogram Completed 04/09/2015 29807805 Mammogram Completed 12/28/2013 23016377 Mammogram Completed 03/27/2012 84740734 Mammogram Completed 02/23/2012 426585541 Bone Mineral Density Test Completed 02/23/2012 32057040 Mammogram Completed 03/21/2008 55342765 Mammogram Completed 08/15/2002 19070038 Colonoscopy Completed Medical Devices Description No Information Available Encounters Type Date Location Provider Dx Diagnosis Office Visit 04/04/2019 Rheumatology Miles Burdick, 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 quadrant pain B02.9 Zoster without complications Office Visit 12/25/2018 11:30a [facility] Internal Talya Giorgio, N30.00 [facility] 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 04/04/2019 M81.8 Other osteoporosis without current Miels Burdick M.D. pathological fracture 04/04/2019 Z79.899 Other exterminator helper (current) drug Miles Burdick M.D. therapy 04/04/2019 M19.049 Primary osteoarthritis, unspecified Miles Burdick M.D. 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 03/09/2019 R51 Headache Marvin Odell, N.P. 03/09/2019 M48.061 Spinal stenosis, lumbar region Marvin Odell, N.P. without neurogenic claudicati 03/09/2019 M54.6 [...] due to other internal or 11/27/2018 Z79.2 vermin exterminator (current) use of Ina Valle NP antibiotics 11/24/2018 M48.061 Spinal stenosis, lumbar region Marvin Odell, N.P. without neurogenic claudicati 11/24/2018 R51 Headache Marvin Odell, N.P. 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 11/24/2018 M54.6 Pain in thoracic spine Marvin Odell, N.P. 11/24/2018 R32 Unspecified urinary incontinence Marvin Odell, N.P. Plan of Treatment Future Appointment(s):06/20/2019 4:00 pm - Reji Hampton M.D. at [facility]05/16/2019 2:00 pm - Traveling ECHO 1 at [facility]01/03/2020 1:00 pm - Miles Burdick M.D. at [facility]08/2018 1:45 pm - Marko Peters M.D. at [facility] - Dunia Cee, MDR10.32 Left lower quadrant painJ20.9 Acute bronchitis , qfhvvkjtlmmT45.0 Urinary tract infection, site not specifiedComments:I will get back to you regarding the antibiotic once I get the sensitivity back Functional Status Functional Condition Comment Date Status Standard cane is used to ambulate Active Mental Status Description No Information Available Referrals Refer to Dr Reason for Referral Status Appt Date Other Physician Practices REF: DR. LLOYD FELIPE [facility] PHONE: [phone] FAX: [phone] - Param Tavarez MD pls evaluate pt with severe chronic pain who is Sent interested in medical cannabis [address] [place] [address] [phone] Chris Childs MD Sent [address] [place] [address] [phone]
--- OUTSIDE RECORDS SUMMARY | 2019-05-29 18:52 | XMS REPORT | Continuity of Care Document ---
:1940 External Reference #:[id number] Author Name Nicola Ricardo M.D. (transmitted by agent of provider Breana Rivera ) Address [address] [place] [id number] Care Team Providers Name Role Phone Guerrero Morgan MD - Rheumatology Care Team Information Heel Reducer Miles Garrett MD - Pulmonary Disease Care Team Information Heel Reducer [phone] Iveth Serrano MD - Infectious Care Team Information Heel Reducer [phone] Disease Esmer Maldonado MD - Surgery of the Care Team Information Heel Reducer [phone] Hand Enrique Torres MD - Orthopaedic Surgery Care Team Information Heel Reducer [phone] the Spine Nicola Ricardo MD - Infectious Care Team Information Heel Reducer Disease Anabell Carrizales MD - Surgery Care Team Information Heel Reducer [phone] Emi Kunz MD - Hematology & Care Team Information Heel Reducer Oncology Reji Hampton MD - Cardiovascular Care Team Information Heel Reducer Disease [facility] - Care Team Information Heel Reducer Exercise & Sports Wilber Manuel MD - Care Team Information Heel Reducer [phone] Neurological Surgery Marko Peters M.D. - Neurology Care Team Information Heel Reducer Miles Burdick MD - Rheumatology Care Team Information Heel Reducer Candace Lopez M.D. - [facility] Medicine Care Team Information Heel Reducer [phone] Problems Active Problems Provider Date Common variable [...] Terry M.D.,FACP Onset: 08/03/2007 Essential hypertension Carl Griffiths DO FACC Onset: 05/20/2015 Ex-smoker Ernst Terry M.D.,FACP [...] Marko Peters M.D. 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 01/31/2017 Medications Active Medications SIG Qnty Indications Ordering Date Provider Amoxicillin/Clavulanat take one tablet 15tabs Dunia Cee MD 04/27/2019 e Potassium every 8 hours 500-125mg Tablets Nystatin-Triamcinolone apply twice a 15gm R21 Dunia Cee MD 04/27/2019 day in thin 142479-9.1Unit/GM-% layer Cream Valacyclovir HCL 1 tab PO every 8 21tabs R21 Dunia Cee MD 04/27/2019 1gm hours X 7 Days Tablets Lidoderm 1 patch 30units B02.23 Marvin [...] neb 540units J20.9 Candace Lopez MD 08/30/2018 [place]/Albuterol every 4-6 hours Sulfate for 0.5-2.5(3)mg/3ML wheezing/coughin [...] Vitamin A 1 by mouth every Ernst Roma 03/06/2018 [id number] day Jacqueline Terry,FACP Capsules Tikosyn take one tablet 180caps Reji Hampton, 03/02/2018 250mcg Capsules twice a day Jacqueline Amlodipine Besylate 1 by mouth every 90tabs I10 Candace Lopez MD 03/02/2018 10mg day Tablets Compression Stockings please use daily as 2units Miles Burdick, 2017 needed for leg/foot M.D. Misc swelling and venous stasis changes Montelukast Sodium take 1 tablet by 90tabs Candace Lopez MD 11/18/2017 10mg mouth every day Tablets Sulfamethoxazole-Trime 1 tab daily 90tabs Nicola Brandon 09/13/2017 jodie Ricardo M.D. 400-80mg Tablets Motorized Scooter use as directed G89.4 Ernst Brandon 03/25/2017 Jacqueline Terry,FACP I67.83 Plaquenil take 2 tablets by 180tabs L40.50 Miles Burdick, 02/10/2017 200mg Tablets mouth every day M.D. Hydromorphone HCL ER 1 by mouth twice a 60units Candace Lopez MD 2016 12mg day T24a Hydralazine HCL take 2 tabs by mouth 180tabs I10 Fidelia Hankins, 2016 10mg three times a day M.D. [...] days 04/26/2019 Tablets Amoxicillin one by mouth 21marshalbs Candace Lopez MD 03/08/2019 - 500mg Tablets [...] Qnty Indications Ordering Provider Date Triamcinolone (Kenalog) Bteito Barry MD 07/18/2018 Injection Triamcinolone (Kenalog) Betito Barry MD 05/18/2018 Injection Triamcinolone (Kenalog) Betito Barry MD 01/19/2018 Injection Triamcinolone (Kenalog) eBtito Barry MD 09/09/2017 Injection Immunizations CPT Code Status Date Vaccine Lot # [id number] Given 05/10/2018 Influenza Virus Vaccine, Quadrivalent, Split, [id number] Preservative Free [id number] Given 07/01/2017 Influenza Virus Vaccine, Quadrivalent, Split, [id number] Preservative Free 03284 Given 05/11/2016 Influenza Virus Vaccine, Quadrivalent, Split, [id number] Preservative Free 57916 Given 06/17/2015 Influenza Virus 3Yrs & Over 19977 Given 05/01/2015 Influenza Virus Vaccine, Quadrivalent, Split, [id number] Preservative Free Q2037 Given 12/30/2014 Fluvirin Im 3Yrs And Older 48935 Given 06/13/2014 Pneumococcal Conjugate Vaccine 13 Valent For [id number] Intramuscular Use 74933 Given 06/13/2014 Flu Vaccine Split Virus Preservative Free For [id number] Indiv 3Yr Older 02987 Given 05/16/2013 Flu Vaccine Split Virus Preservative Free For [id number] Indiv 3Yr Older Q2037 Given 05/20/2012 Fluvirin Im 3Yrs And Older 17654 Given 02/29/2012 Zoster (Zostavax) [id number] 48452 Given 02/10/2012 Pneumonia Vaccine [id number] Q2038 Given 06/05/2011 Fluzone Vaccine [id number] 31859 Given 06/25/2010 Influenza Virus 3Yrs & Over 09612 Given 07/25/2009 Influenza Virus Vaccine, Pandemic Formulation [id number] 52013 Given 08/15/2006 Td (History By Patient) Vital Signs Date Vital Result Comment 04/30/2019 3:39pm Height 63.5 inches 5'3.50" Weight 162.00 lb Heart Rate 72 /min BP Systolic Sitting 132 mmHg BP Diastolic Sitting 72 mmHg Respiratory Rate 14 /min Body Temperature 98.9 F BMI (Body Mass Index) 28.2 kg/m2 04/27/2019 1:10pm Height 63.5 inches 5'3.50" Weight 162.00 lb Heart Rate 60 /min BP Systolic Sitting 137 mmHg BP Diastolic Sitting 66 mmHg Body Temperature 97.1 F O2 % BldC Oximetry 98 % BMI (Body Mass Index) 28.2 kg/m2 Results Test Date Facility Test Result H/L Range Note Basic Metabolic 04/27/2019 [facility] Sodium 131 mmol/L Low 135-[address] [place] [address] [phone] Potassium 4.4 mmol/L Normal 3.5-5.0 Chloride 97 mmol/L Low 101-111 Co2 Carbon Dioxide 27 mmol/L Normal 22-32 Anion Gap 7 mmol/L Normal 2-11 Glucose 122 mg/dL High 70-100 Blood Urea Nitrogen 12 mg/dL Normal 6-24 Creatinine 0.55 mg/dL Normal 0.51-0.95 BUN/Creatinine Ratio 21.8 High 8-20 Calcium 8.7 mg/dL Normal 8.6-10.3 Egfr Non- 106.9 >60 Egfr 129.3 >60 1 Urine Culture And 04/25/2019 [facility] Urine Culture SEE RESULT [address] [place] [address] [phone] Urinalysis Profile 03/07/2019 [facility] Urine Color Candace [address] [place] [address] [phone] Urine Appearance Turbid Urine Specific [place] 1.010 Normal 1.010-1.030 Urine pH 8.0 Normal [...] 1+ Abnormal Absent Urine Culture And 03/07/2019 [facility] Urine SEE RESULT [address] [place] [address] [phone] CBC Auto Diff 01/10/2019 [facility] White Blood 5.5 10^3/uL Normal 3.5-[address] Count 0.8 [place] [address] [phone] Red Blood Count 4.43 10^6/uL Normal 3.70-4.87 [...] Cells % 0.1 Comp Metabolic Panel 01/10/2019 [facility] Sodium 133 mmol/L Low 135-145 [address] [place] [address] [phone] Potassium 3.7 mmol/L Normal 3.5-5.0 Chloride 98 [...] Non- 131.4 >60 Egfr 159.0 >60 5 Comp Metabolic Panel 01/03/2019 [facility] Sodium 132 mmol/L Low 135-145 [address] [place] [address] [phone] Potassium 4.3 mmol/L Normal 3.5-5.0 Chloride 100 [...] Egfr Non- 131.4 >60 Egfr 159.0 >60 6 Laboratory test 01/03/2019 [facility] Magnesium 1.9 mg/dL Normal 1.9-2.[address] [place] [address] [phone] CBC Auto Diff 01/03/2019 [facility] White Blood 5.1 Normal 3.5 -10.[address] Count 10^3/[place] [address] [phone] Red Blood Count 4.64 10^6/uL Normal 3.70-4.87 [...] Blood Cells % 0.0 Urinalysis Profile 01/03/2019 [facility] Urine Color Yellow [address] [place] [address] [phone] Urine Appearance Cloudy Urine Specific [place] 1.015 Normal 1.010-1.030 Urine pH 6.0 Normal 5-9 Urine Urobilinogen Negative Negative Urine Ketones Negative Negative Urine Protein Negative Negative Urine Leukocytes Negative Negative Urine Blood Negative Negative Urine Nitrite Negative Negative Urine Bilirubin Negative Negative Urine Glucose Negative Negative Urine Culture And 12/22/2018 [facility] Urine Culture SEE RESULT [address] [place] [address] [phone] Ua Routine 12/22/2018 [facility] Ua Specific 1.000 [place] Ua PH 7 Ua Color YELLOW Ua Appera CLOUDY Ua WBC LARGE Ua Protein TRACE Ua Glucose NORM Ua Ketones NEG Ua Bilirubin NEG Ua Urobilinogen NEG Ua Nitrite + Ua Occult Blood TRACE 1 Because ethnic data is not always readily [...] 15-29 5 Kidney failure <15 (or dialysis) 2 SEE RESULT BELOW Name: DANA GUSMAN : [address]: Candace Lopez MD Acct: [id number] Unit: [id number] AGE: 78 Location: [facility] Re04/25/19 SEX: F Status: REG REF SPEC: [id number] MARIA DE JESUS: 04/25/[address]: Candace Lopez MD REQ: [id number] RECD: 04/25/19 STATUS: COMP _ SOURCE: URINE SPDESC: ORDERED: Urine Culture Urine Source: Random Procedure Result Reported Site Urine Culture Final 04/27/19- 0900 ML Organism 1 ESCHERICHIA COLI [place] Count >100,000 (Many) CFU/ML 1. ESCHERICHIA COLI [...] . END OF REPORT DEPARTMENT OF PATHOLOGY, [address] [place] [address] Naldo Palomo M.D. Director [facility] # [id number] 3 treated with appropriate abx 4 SEE RESULT BELOW Name: DANA GUSMAN : [address]: Candace Lopez MD Acct: [id number] Unit: [id number] AGE: 78 Location: [facility] Re03/07/19 SEX: F Status: REG REF SPEC: [id number] MARIA DE JESUS: 03/07/19-[address] [facility] [address]: Candace Lopez MD REQ: [id number] RECD: 03/07/19 STATUS: COMP _ SOURCE: URINE SPDESC: ORDERED: Urine Culture Procedure Result Reported Site Urine Culture Final 03/09/19- 920 ML Organism 1 ESCHERICHIA COLI [place] Count >100,000 (Many) CFU/ML 1. ESCHERICHIA COLI [...] . END OF REPORT DEPARTMENT OF PATHOLOGY, [address] [place] [address] Naldo Palomo M.D. Director [facility] # [id number] 5 Because ethnic data is not always [...] 5 Kidney failure <15 (or dialysis) 6 Because ethnic data is not always [...] 15-29 5 Kidney failure <15 (or dialysis) 7 SEE RESULT BELOW Name: DANA GUSMAN : [address]: Candace Lopez MD Acct: [id number] Unit: [id number] AGE: 78 Location: [facility] Re12/22/18 SEX: F Status: REG REF SPEC: [id number] MARIA DE JESUS: 12/22/[address] [facility] [address]: Candace Lopez MD REQ: [id number] RECD: 12/22/18 STATUS: COMP _ SOURCE: URINE SPDESC: ORDERED: Urine Culture COMMENTS: [id number] Urine Source: Random Procedure Result Reported Site Urine Culture Final 12/25/18- 0832 ML Organism 1 ESCHERICHIA COLI [place] Count >100,000 (Many) CFU/ML 1. ESCHERICHIA COLI [...] . END OF REPORT DEPARTMENT OF PATHOLOGY, [address] [place] [address] Naldo Palomo M.D. Director [facility] # [id number] Procedures Date Code Description Status 01/29/2019 832182445 Diabetic Retinal Eye Exam Completed 04/21/2017 45055961 Mammogram Completed 02/21/2017 602034734 Diabetic Retinal Eye Exam Completed 04/20/2016 79033813 Mammogram Completed 04/23/2015 444175487 Bone Mineral Density Test Completed 04/23/2015 42788049 Mammogram Completed 04/09/2015 15862358 Mammogram Completed 12/28/2013 76908272 Mammogram Completed 03/27/2012 83899424 Mammogram Completed 02/23/2012 866798362 Bone Mineral Density Test Completed 02/23/2012 25106086 Mammogram Completed 03/21/2008 40786679 Mammogram Completed 08/15/2002 41765307 Colonoscopy Completed Medical Devices Description No Information Available Encounters Type Date Location Provider Dx Diagnosis Office Visit 04/30/2019 [facility] Jocelin Nicola D. B37.2 Candidiasis of skin 3:40p Ana Ricardo M.D. 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 B02.9 Zoster without complications Office Visit 12/25/2018 11:30a [facility] Internal Talya Giorgio, N30.00 Acute cystitis [facility] 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 04/04/2019 M81.8 Other osteoporosis without current Miles Burdick M.D. pathological fracture 04/04/2019 Z79.899 Other fci (current) drug Miles Burdick M.D. therapy 04/04/2019 [...] due to other internal or 11/27/2018 Z79.2 residential (current) use of Ina Valle NP antibiotics 11/24/2018 M48.061 Spinal stenosis, lumbar region Marvin Jose R, N.P. without neurogenic claudicati 11/24/2018 R51 Headache Marvin Jose R, N.P. 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 11/24/2018 M54.6 Pain in thoracic spine Marvinjacquelyn Odell, N.P. 11/24/2018 R32 Unspecified urinary incontinence Marvin Odell, N.P. Plan of Treatment Future Appointment(s):06/20/2019 4:00 pm - Reji Hampton M.D. at [facility]05/16/2019 2:00 pm - Traveling ECHO 1 at [facility]01/03/2020 1:00 pm - Miles Burdick M.D. at [facility]08/2018 1:45 pm - Marko Peters M.D. at [facility] - Nicola Ricardo M.D.B37.2 Candidiasis of skin and nailComments: continue topical nystatin; call if it returns after completing it; can stop antiviral , make sure todry as able and may keep dry cloth between skin after bathing Functional Status Functional Condition Comment Date Status Standard cane is used to ambulate Active Mental Status Description No Information Available Referrals Refer to Dr Reason for Referral Status Appt Date Other Physician Practices REF: DR. LLOYD [facility] PHONE: [phone] FAX: [phone] Param Tavarez MD pls evaluate pt with severe chronic pain who is Sent interested in medical cannabis [address] [place] [address] [phone] Chris Childs MD Sent [address] [facility] [address] [place] [address] [phone]
--- OUTSIDE RECORDS SUMMARY | 2019-05-29 18:52 | XMS REPORT | Continuity of Care Document ---
:1940 External Reference #:[id number] Author Name Dunia Cee MD (transmitted by agent of provider Laurie Avendano) Address [address] [facility] [address] [facility], [place] [address] Care Team Providers Name Role Phone Guerrero Morgan MD - Rheumatology Care Team Information Chief Mechanical Officer Miles Garrett MD - Pulmonary Disease Care Team Information Chief Mechanical Officer Iveth Serrano MD - Infectious Care Team Information Chief Mechanical Officer [phone] Disease Esmer Maldonado MD - Surgery of the Care Team Information Chief Mechanical Officer Hand Enrique Torres MD - Orthopaedic Surgery Care Team Information Chief Mechanical Officer [phone] the Spine Nicola Ricardo MD - Infectious Care Team Information Chief Mechanical Officer Disease Anabell Carrizales MD - Surgery Care Team Information Chief Mechanical Officer Emi Kunz MD - Hematology & Care Team Information Chief Mechanical Officer Oncology Reji Hampton MD - Cardiovascular Care Team Information Chief Mechanical Officer Disease [facility] - Care Team Information Chief Mechanical Officer Exercise & Sports Wilber Manuel MD - Care Team Information Chief Mechanical Officer [phone] Neurological Surgery Marko Peters M.D. - Neurology Care Team Information Chief Mechanical Officer [phone] Miles Burdick MD - Rheumatology Care Team Information Chief Mechanical Officer Candace Lopez M.D. - Family Medicine Care Team Information Chief Mechanical Officer Problems Active Problems Provider Date Common variable [...] region Marko Peters M.D. Onset: 01/20/2018 Headache Christy Verduzco.Miles. Onset: 11/24/2018 Social History Type Date Description [...] day, quit in 1984 Smoking Status Reviewed: 04/27/19 Patient is a former smoked for 15 [...] Dunia Cee MD 04/27/2019 day in thin 764547-2.1Unit/GM-% layer Cream Valacyclovir HCL 1 tab PO [...] HCL 1-4 AT Bedtime 120tabs B02.29 Candace oLpez MD 01/10/2019 25mg Tablets Hydromorphone HCL one every 4 180tabs Candace Lopez MD 09/26/2018 4mg hours as needed Tablets pain Aerochamber MV use as directed 1units J40 Candace Lopez MD 09/11/2018 Misc with inhaler Ipratropium one vial via neb 540units J20.9 Candace Lopez MD 08/30/2018 [place]/Albuterol every 4-6 hours Sulfate for 0.5-2.5(3)mg/3ML wheezing/coughin [...] 1 by mouth every Ernst Brandon 03/06/2018 [id number] day Jacqueline Terry,FACP Capsules Tikosyn take one tablet 180caps Reji Hampton, 03/02/2018 250mcg Capsules twice a day M.DDavid Amlodipine Besylate 1 by mouth every 90tabs I10 Candace Lopez MD 03/02/2018 10mg day Tablets Compression Stockings please use daily as 2units Miles Burdick, 2017 needed for leg/foot M.D. Misc swelling and venous stasis changes Montelukast Sodium take 1 tablet by 90tabs Candace Lopez MD 11/18/2017 10mg mouth every day Tablets Sulfamethoxazole-Trime 1 tab daily 90tabs Nicola Brandon 09/13/2017 deborah Ricardo M.D. 400-80mg Tablets Motorized Scooter use [...] CPT Code Status Date Vaccine Lot # [id number] Given 05/10/2018 Influenza Virus Vaccine, Quadrivalent, Split, [id number] Preservative Free 69707 Given 07/01/2017 Influenza Virus Vaccine, Quadrivalent, Split, [id number] Preservative Free 91936 Given 05/11/2016 Influenza Virus Vaccine, Quadrivalent, Split, [id number] Preservative Free 91597 Given 06/17/2015 Influenza Virus 3Yrs & Over 35149 Given 05/01/2015 Influenza Virus Vaccine, Quadrivalent, Split, [id number] Preservative Free [id number] Given 12/30/2014 Fluvirin Im 3Yrs And Older 25109 Given 06/13/2014 Pneumococcal Conjugate Vaccine 13 Valent For [id number] Intramuscular Use 40688 Given 06/13/2014 Flu Vaccine Split Virus Preservative Free For [id number] Indiv 3Yr Older 86372 Given 05/16/2013 Flu Vaccine Split Virus Preservative Free For [id number] Indiv 3Yr Older Q2037 Given 05/20/2012 Fluvirin Im 3Yrs And Older 99967 Given 02/29/2012 Zoster (Zostavax) [id number] 24369 Given 02/10/2012 Pneumonia Vaccine [id number] Q2038 Given 06/05/2011 Fluzone Vaccine [id number] 56309 Given 06/25/2010 Influenza Virus 3Yrs & Over 43180 Given 07/25/2009 Influenza Virus Vaccine, Pandemic Formulation [id number] 63920 Given 08/15/2006 Td (History By Patient) Vital Signs Date Vital Result Comment 04/27/2019 1:10pm Height 63.5 inches 5'3.50" Weight 162.00 lb Heart Rate 60 /min BP Systolic Sitting 137 mmHg BP Diastolic Sitting 66 mmHg Body Temperature 97.1 F O2 % BldC Oximetry 98 % BMI (Body Mass Index) 28.2 kg/m2 04/26/2019 2:54pm Height 63.5 inches 5'3.50" Weight 162.00 lb Heart Rate 60 /min BP Systolic Sitting 163 mmHg BP Diastolic Sitting 81 mmHg Body Temperature 97.4 F Pain Level 8 comes and goes with having shingles O2 % BldC Oximetry 97 % BMI (Body Mass Index) 28.2 kg/m2 Results Test Date Facility Test Result H/L Range Note Urine Culture And 04/25/2019 [facility] Urine Culture SEE RESULT [address] [place] [address] [phone] Urinalysis Profile 03/07/2019 [facility] Urine Color Candace [address] [place] [address] [phone] Urine Appearance Turbid Urine Specific [place] 1.010 Normal 1.010-1.030 Urine pH 8.0 Normal [...] 1+ Abnormal Absent Urine Culture And 03/07/2019 [facility] Urine SEE RESULT [address] [place] [address] [phone] CBC Auto Diff 01/10/2019 [facility] White Blood 5.5 10^3/uL Normal 3.5-[address] Count 0.8 [place] [address] [phone] Red Blood Count 4.43 10^6/uL Normal 3.70-4.87 [...] Cells % 0.1 Comp Metabolic Panel 01/10/2019 [facility] Sodium 133 mmol/L Low 135-[address] [place] [address] [phone] Potassium 3.7 mmol/L Normal 3.5-5.0 Chloride 98 [...] 159.0 >60 4 Comp Metabolic Panel 01/03/2019 [facility] Sodium 132 mmol/L Low 135-145 [address] [place] [address] [phone] Potassium 4.3 mmol/L Normal 3.5-5.0 Chloride 100 [...] Egfr 159.0 >60 5 Laboratory test 01/03/2019 [facility] Magnesium 1.9 mg/dL Normal 1.9-2.[address] [place] [address] [phone] CBC Auto Diff 01/03/2019 [facility] White Blood 5.1 Normal 3.5 -10.[address] Count 10^3/[place] [address] [phone] Red Blood Count 4.64 10^6/uL Normal 3.70-4.87 [...] Blood Cells % 0.0 Urinalysis Profile 01/03/2019 [facility] Urine Color Yellow [address] [place] [address] [phone] Urine Appearance Cloudy Urine Specific [place] 1.015 Normal 1.010-1.030 Urine pH 6.0 Normal 5-9 Urine Urobilinogen Negative Negative Urine Ketones Negative Negative Urine Protein Negative Negative Urine Leukocytes Negative Negative Urine Blood Negative Negative Urine Nitrite Negative Negative Urine Bilirubin Negative Negative Urine Glucose Negative Negative Urine Culture And 12/22/2018 [facility] Urine Culture SEE RESULT [address] [place] [address] [phone] Ua Routine 12/22/2018 [facility] Ua Specific 1.000 [place] Ua PH 7 Ua Color YELLOW Ua Appera CLOUDY Ua WBC LARGE Ua Protein TRACE Ua Glucose NORM Ua Ketones NEG Ua Bilirubin NEG Ua Urobilinogen NEG Ua Nitrite + Ua Occult Blood TRACE 1 SEE RESULT BELOW Name: DANA GUSMAN : [address]: Candace Lopez MD Acct: [id number] Unit: [id number] AGE: 78 Location: [facility] Re04/25/19 SEX: F Status: REG REF SPEC: [id number] MARIA DE JESUS: 04/25/[address]: Candace Lopez MD REQ: [id number] RECD: 04/25/19 STATUS: COMP _ SOURCE: URINE SPDESC: ORDERED: Urine Culture Urine Source: Random Procedure Result Reported Site Urine Culture Final 04/27/19- 0900 ML Organism 1 ESCHERICHIA COLI Jackson Count >100,000 (Many) CFU/ML 1. ESCHERICHIA COLI [...] . END OF REPORT DEPARTMENT OF PATHOLOGY, [address] [place] [address] Naldo Palomo M.D. Director [facility] # [id number] 2 treated with appropriate abx 3 SEE RESULT BELOW Name: DANA GUSMAN : [address]: Candace Lopez MD Acct: [id number] Unit: [id number] AGE: 78 Location: [facility] Re03/07/19 SEX: F Status: REG REF SPEC: [id number] MARIA DE JESUS: 03/07/[address] [facility] [address]: Candace Lopez MD REQ: [id number] RECD: 03/07/19 STATUS: COMP _ SOURCE: URINE SPDESC: ORDERED: Urine Culture Procedure Result Reported Site Urine Culture Final 03/09/19- 920 ML Organism 1 ESCHERICHIA COLI Jackson Count >100,000 (Many) CFU/ML 1. ESCHERICHIA COLI [...] Department for any additional antibiotic reporting. * - [facility] . END OF REPORT DEPARTMENT OF PATHOLOGY, [address] [place] [address] Naldo Palomo M.D. Director [facility] # [id number] 4 Because ethnic data is not always [...] [address]: Candace Lopez MD Acct: [id number] Unit: [id number] AGE: 78 Location: [facility] Re12/22/18 SEX: F Status: REG REF SPEC: [id number] MARIA DE JESUS: 12/22/[address]: Candace Lopez MD REQ: [id number] RECD: 12/22/18 STATUS: COMP _ SOURCE: URINE SPDESC: ORDERED: Urine Culture COMMENTS: [id number] Urine Source: Random Procedure Result Reported Site Urine Culture Final 12/25/18- 0832 ML Organism 1 ESCHERICHIA COLI [place] Count >100,000 (Many) CFU/ML 1. ESCHERICHIA COLI [...] . END OF REPORT DEPARTMENT OF PATHOLOGY, [address] [place] [address] Naldo Palomo M.D. Director [facility] # [id number] Procedures Date Code Description Status 01/29/2019 718249134 Diabetic Retinal Eye Exam Completed 04/21/2017 27131228 Mammogram Completed 02/21/2017 132089358 Diabetic Retinal Eye Exam Completed 04/20/2016 51273482 Mammogram Completed 04/23/2015 645077339 Bone Mineral Density Test Completed 04/23/2015 17156931 Mammogram Completed 04/09/2015 43478759 Mammogram Completed 12/28/2013 91733826 Mammogram Completed 03/27/2012 51264971 Mammogram Completed 02/23/2012 850813834 Bone Mineral Density Test Completed 02/23/2012 49653596 Mammogram Completed 03/21/2008 26965844 Mammogram Completed 08/15/2002 07769523 Colonoscopy Completed Medical Devices Description No Information Available Encounters Type Date Location Provider Dx Diagnosis Office Visit 04/04/2019 Rheumatology Miles Heavenly, 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 pain B02.9 Zoster without complications Office Visit 12/25/2018 11:30a [facility] Internal Talya Alvares, N30.00 Acute cystitis [facility] without hematuria B02.9 Zoster without complications Office Visit 11/27/2018 [facility] T84.7xxD Infect/ inflm 2:30p For Infectious Valle, EGG CRATER react due to oth Diseases int orth prosth dev/grft, subs Z79.2 retirement (current) use of antibiotics Office Visit 11/24/2018 9:30a [place] Marvin M48.061 Spinal stenosis, Neurologic Odell, N.P. 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 04/04/2019 M81.8 Other osteoporosis without current Miles Burdick M.D. pathological fracture 04/04/2019 Z79.899 Other residential (current) drug Miles Burdick M.D. therapy 04/04/2019 [...] due to other internal or 11/27/2018 Z79.2 retirement (current) use of Ina Valle NP antibiotics 11/24/2018 M48.061 Spinal stenosis, lumbar region Marvinjacquelyn Odell, N.P. without neurogenic claudicati 11/24/2018 R51 Headache Marvinjacquelyn Odell, N.P. 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 11/24/2018 M54.6 Pain in thoracic spine Marvinjacquelyn Odell, N.P. 11/24/2018 R32 Unspecified urinary incontinence Marvin Odell, N.P. Plan of Treatment Future Appointment(s):04/30/2019 3:40 pm - Nicola Ricardo M.D. at [facility] [place] [facility] Cfjsqwda82/06/2019 4:00 pm - Reji Hampton M.D. at [facility]05/16/2019 2:00 pm - Traveling ECHO 1 at [facility] [facility]01/03/2020 1:00 pm - Miles Burdick M.D. at [facility]06/15/2019 1:45 pm - Marko Peters M.D. at [place] [facility]04/27/2019 - Dunia Cee MDN39.0 Urinary tract infection, site not specifiedComments:Please start to take augmentinYou have an appointment with Dr. Gutierrez on tuesday at 3:40 pmR21 Rash and other nonspecific skin eruptionNew Medication:Nystatin-Triamcinolone 749388-8.1 Unit/GM-% - apply twice a day in thin layerValacyclovir HCL 1 gm - 1 tab PO every 8 hours X 7 Days Functional Status Functional Condition Comment Date Status Standard cane is used to ambulate Active Mental Status Description No Information Available Referrals Refer to Dr Reason for Referral Status Appt Date Other Physician Practices REF: DR. LLOYD FELIPE [facility] PHONE: [phone] FAX: [phone] Param Tavarez MD pls evaluate pt with severe chronic pain who is Sent interested in medical cannabis [address] [place] [address] [phone] Chris Childs MD Sent [address] [facility] [address] [place] [address] [phone]
--- NOTE | 2019-05-29 21:26 | ED ---
Complex/Multi-Sys Presentation - HPI Summary HPI Summary: Pt is a 78 y/o F presenting to the ED for a chief complaint of UTI symptoms. Pt is present with her . Pt called her PCP and was told to go to the ED. Pt has urinary urgency, urinary discomfort, and dysuria that began 4 days ago. Pt recently completed a course of antibiotics for a UTI, but her UTI symptoms have since returned. Pts states that the pt has recurrent UTI and had a urinalysis 2 days ago that showed positive E. coli. Pt is also complaining of a productive cough and SOB that began one week ago. Pt also states she has right- sided CP after eating the resolves 30 minutes after eating, and bilateral LE and facial edema. Pt also reports abdominal pain and abdominal tenderness to palpation. Pt denies decreased appetite or fever. Pt has a PMHx of chronic back pain, shingles, lung disease, COPD, and hyponatremia. Pt uses a nebulizer which alleviates her respiratory symptoms. Pt previously took Prednisone and believes the bilateral LE and facial edema is caused by Prednisone. Pt has a PSHx of right ankle surgery in 2018, elbow surgery, appendectomy, and ovarian cyst removal. - History Of Current Complaint Chief Complaint: EDGeneral Time Seen by Provider: 05/29/19 21:12 Hx Obtained From: Patient, Family/Photo Printer - Onset/Duration: Sudden Onset, Still Present Timing: Days Severity Currently: Moderate Severity Initially: Moderate Associated Signs And Symptoms: Positive: SOB, Cough - Productive, Chest Pain - Right-sided after eating, resolves after 30 min, Edema - Bilateral LE and face, Abdominal Pain - With abdominal tenderness, Dysuria, Other - Negative decreased appetite. Negative: Fever - Allergies/Home Medications Allergies/Adverse Reactions: Allergies Allergy/AdvReac Type Severity Reaction Status Date / Time azathioprine Allergy See Comment Verified 01/09/19 23:02 celecoxib [From Celebrex] Allergy Rash Verified 01/09/19 23:02 chlorhexidine Allergy Rash And Verified 01/09/19 23:02 Itching methotrexate Allergy See Comment Verified 01/09/19 23:02 vancomycin Allergy See Comment Verified 01/09/19 23:02 adhesives AdvReac Intermediate Rash Uncoded 01/09/19 23:02 PMH/Surg Hx/FS Hx/Imm Hx Previously Healthy: Yes Endocrine/Hematology History: Reports: Hx Anticoagulant Therapy - eliquis, Hx Thyroid Disease - hypothyroidism Denies: Hx Blood Disorders, Hx Blood Transfusions, Hx Bone Marrow Disease, Hx Diabetes, Hx Systemic Lupus Erythematosus, Hx Sickle Cell Disease, Hx Anemia , Hx Unexplained Bleeding, Other Endocrine/Hematological Disorders Cardiovascular History: Reports: Hx Atrial Fibrillation - on blood thinner, Hx Hypercholesterolemia, Hx Hypertension, Hx Valvular Heart Disease - Aortic Valve disease, Other Cardiovascular Problems/Disorders - ON BLOOD THINNER MEDICATION PER Denies: Hx Aneurysm, Hx Angina, Hx Angioplasty, Hx Auto Implanted Cardiovert Defib, Hx Cardiac Arrest, Hx Cardiomegaly, Hx Congenital Heart Disease, Hx Congestive Heart Failure, Hx Coronary Artery Disease, Hx Deep Vein Thrombosis, Hx Embolism, Hx Hypotension, Hx Pacemaker/ICD, Hx Peripheral Vascular Disease, Hx Rheumatic Fever, Hx Syncope Respiratory History: Reports: Hx Sleep Apnea, Other Respiratory Problems/ Disorders - Pulmonary HTN Denies: Hx Asthma, Hx Chronic Bronchitis, Hx Chronic Obstructive Pulmonary Disease (COPD) - with chronic bronchitis, Hx Cystic Fibrosis, Hx Lung Cancer, Hx Pleural Effusion, Hx Pneumonia, Hx Pulmonary Edema, Hx Pulmonary Embolism, Hx Seasonal Allergies GI History: Reports: Hx Gastroesophageal Reflux Disease, Hx Ulcer - gerd, Other GI Disorders - CONSTIPATION- DIET CONTROLLED Denies: Hx Cirrhosis, Hx Crohn's Disease, Hx Diverticulosis, Hx Gall Bladder Disease, Hx Gastrointestinal Bleed, Hx Hiatal Hernia, Hx Irritable Bowel, Hx Jaundice, Hx Obstructive Bowel, Hx Ileostomy, Hx Pyloric Stenosis History: Reports: Other Problems/Disorders - UTIs ONCE IN AWHILE, not recent per pt Denies: Hx Dialysis, Hx Renal Disease Musculoskeletal History: Reports: Hx Arthritis, Hx Back Problems, Hx Orthopedic Injury - Right arm reconstruction r/t traumatic injury, Other Musculoskeletal History - Left Fibula Fracture 08/03/16, psoriatic arthritis Denies: Hx Bursitis, Hx Congenital Bone Abnormalities, Hx Fibromyalgia, Hx Gout, Hx Osteoporosis, Hx Scoliosis, Hx Tendonitis Sensory History: Reports: Hx Cataracts, Hx Contacts or Glasses Denies: Hx Eye Injury, Hx Eye Prosthesis, Hx Glaucoma, Hx Legally Blind, Hx Macular Degeneration, Hx Vision Problem, Hx Deafness, Hx Hearing Aid, Hx Hearing Problem, Other Sensory Impairments Opthamlomology History: Reports: Hx Cataracts, Hx Contacts or Glasses Denies: Hx Eye Injury, Hx Eye Prosthesis, Hx Glaucoma, Hx Legally Blind, Hx Macular Degeneration, Hx Vision Problem, Other Sensory Impairments Neurological History: Denies: Hx CVA, Other Neuro Impairments/Disorders - spinal cord deformities Psychiatric History: Reports: Hx Depression, Hx Suicide Attempt, Hx Substance Abuse - EtOH Denies: Hx Anxiety, Hx Attention Deficit Hyperactivity Disorder, Hx Eating Disorder, Hx Panic Disorder, Hx Post Traumatic Stress Disorder, Hx Inpatient Treatment, Hx Community Mental Health Tx, Hx Schizophrenia, Hx Bipolar Disorder , Hx of Violent Episodes Against Others, Other Psychiatric Issues/Disorders - Cancer History Cancer Type, 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 LT FOOT - REPAIR - RECON W/ METAL;. LUMBAR - DISCETOMY, HERNIATION. 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 REN KNEE REPLACEMENTS (1999 & 2009). Rt ELBOW - ARTIFICIAL JOINT AND METAL PLATE ABOVE JOINT;. TONSILECTOMY. APPENDECTOMY,. OVARIAN CYST REMOVED - REN; . Rt MASTECTOMY- W/ RADIATION. LEFT ANKLE x2 (has hardware),. tubal;. EAR TUBES RECENTLY;. 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, 2012 Denies: Hx Clostridium Difficile, Hx Hepatitis, Hx Human Immunodeficiency Virus (HIV), Hx Shingles, Hx Tuberculosis, Hx Known/Suspected VRE, Hx Known/ Suspected VRSA, History Other Infectious Disease, Traveled Outside the [place] in Last 30 Days - Family History Known Family History: Positive: Other - Breast CA - Social History Alcohol Use: Daily Hx Substance Use: Yes Substance Use Type: Reports: None Substance Use Comment - Amount & Last Used: DILAUDID Hx Tobacco Use: Yes Smoking Status (MU): Former Smoker Type: Cigarettes Amount Used/How Often: 5 a day Length of Time of Smoking/Using Tobacco: 15 yrs Have You Smoked in the Last Year: No Review of Systems Positive: Chest Pain - Right-sided after eating, resolves after 30 min Positive: Shortness Of Breath, Cough - Productive Positive: Abdominal Pain - With abdominal tenderness Positive: dysuria, urgency - Urinary, other - Positive urinary discomfort Positive: Edema - Bilateral LE and facial All Other Systems Reviewed And Are Negative: Yes Physical Exam - Summary Physical Exam Summary: Appearance: Well-appearing, Well-nourished, lying in bed comfortably Skin: Warm, dry, no obvious rash Eyes: sclera anicteric, no conjunctival pallor ENT: mucous membranes moist, pharynx appears normal Neck: Supple, nontender Respiratory: Clear to auscultation, no signs of respiratory distress Cardiovascular: Normal S1, S2. No murmurs. Normal distal pulses in tibial and radial bilaterally. Abdomen: Soft, nontender, normal active bowel sounds present Musculoskeletal: Normal, Strength/ROM Intact Neurological: A&Ox3, awake and alert, mentation is normal, speech is fluent and appropriate Psychiatric: affect is normal, does not appear anxious or depressed Triage Information Reviewed: Yes Vital Signs On Initial Exam: Initial Vitals Temp Pulse Resp BP Pulse Ox 99 F 59 17 160/59 94 05/29/19 18:38 05/29/19 18:38 05/29/19 18:38 05/29/19 18:38 05/29/19 18:38 Vital Signs Reviewed: Yes Procedures - Sedation Patient Received Moderate/Deep Sedation with Procedure: No Diagnostics - Vital Signs Vital Signs Temp Pulse Resp BP Pulse Ox 05/29/19 18:38 99 F 59 17 160/59 94 - Laboratory Result Diagrams: 05/29/19 22:15 05/29/19 22:15 Lab Statement: Any lab studies that have been ordered have been reviewed, and results considered in the medical decision making process. - Radiology Chest X-ray Radiology Interpretation Completed By: ED Physician Summary of Radiographic Findings: Chest X-ray IMPRESSION: no acute process. Reviewed and interpreted by ED physician, pending official radiology report. - Ultrasound Gallbladder US Ultrasound Interpretation Completed By: Radiologist Summary of Ultrasound Findings: Gallbladder US IMPRESSION: No sonographic findings to correlate with patient's symptomatology. Reviewed by ED physician. Complex Multi-Symp Course/Dx Course Of Treatment: Pt is a 78 y/o F presenting to the ED for a chief complaint of UTI symptoms. Pt is present with her . Pt has urinary urgency, urinary discomfort, and dysuria that began again 4 days ago. Pt recently completed a course of antibiotics for a UTI, but her UTI symptoms have since returned. Pts states that the pt has recurrent UTI and had a urinalysis 2 days ago that showed positive E. coli. Pt is also complaining of a productive cough and SOB that began one week ago. Pt also states she has right- sided CP after eating the resolves 30 minutes after eating, and bilateral LE and facial edema. Pt also reports abdominal pain and abdominal tenderness to palpation. Pt denies decreased appetite or fever. Pt has a PMHx of chronic back pain, shingles, lung disease, COPD, and hyponatremia. Pt uses a nebulizer which alleviates her respiratory symptoms. Pt previously took Prednisone. On exam, pt had unremarkable findings. In the ED course, pt was given cefdinir 300 mg PO and prednisone 40 mg PO. Laboratory abnormal findings: RBC 3.54, Hgb 11.2, Hct 32, MCH 32, MPV 6.6, sodium 133, chloride 99, glucose 105, c-reactive protein 31.18, total protein 5.9. Chest X-ray IMPRESSION: no acute process. Gallbladder US IMPRESSION: No sonographic findings to correlate with patient's symptomatology. Pt will be discharged home with a diagnosis of COPD exacerbation, UTI, and hyponatremia. - Diagnoses Provider Diagnoses: COPD exacerbation, UTI (urinary tract infection), Hyponatremia Discharge ED - Sign-Out/Discharge Documenting (check all that apply): Patient Departure - Discharge - Discharge Plan Condition: Good Disposition: HOME Patient Education Materials: COPD (Chronic Obstructive Pulmonary Disease) (ED) , Urinary Tract Infection in Older Adults (ED) Referrals: Candace Lopez MD [Primary Care Provider] - 3 Days - Billing Disposition and Condition Condition: GOOD Disposition: Home - Attestation Statements Document Initiated by Bello: Yes Documenting Scribe: Floresita Jones Provider For Whom Bello is Documenting (Include Credential): Kartik Scanlon MD Scribe Attestation: Floresita Beck, scribed for Kartik Scanlon MD on 06/20/19 at 1838. Scribe Documentation Reviewed: Yes Provider Attestation: The documentation as recorded by the Floresita olguin accurately reflects the service I personally performed and the decisions made by , Kartik Scanlon MD Status of Scribe Document: Viewed
[2019-05-29 22:21] LABS: ABS Eosinophils 0.3 10^3/ul (0-0.6); ABS Monocytes 0.5 10^3/ul (0-0.8); ABS Neutrophils 2.6 10^3/ul (1.5-7.7); Eosinophil % 6.6 %; Hematocrit 32 % (35-47); Hemoglobin 11.2 g/dL (12.0-16.0); Lymphocyte % 22.5 %; Mean Corpuscular HGB Conc 35 g/dL (31-36); Mean Corpuscular Hemoglobin 32 pg (27-31); Mean Corpuscular Volume 90 fL (80-97); Mean Platelet Volume 6.6 fL (7.4-10.4); Platelet Count 164 10^3/uL (150-450); Red Blood Count 3.54 10^6 /uL (3.70-4.87); Red Cell Distribution Width 15 % (10-15); White Blood Count 4.5 10^3/uL (3.5-10.8)
[2019-05-29 22:38] LABS: Albumin 3.8 g/dL (3.2-5.2); Albumin/Globulin Ratio 1.8 (1-3); BUN/Creatinine Ratio 18.9 (8-20); C Reactive Protein 31.18 mg/L (<8.01); Calcium 8.8 mg/dL (8.6-10.3); EGFR African American 91.8 (>60); EGFR Non-African American 75.9 (>60); Globulin 2.1 g/dL (2-4); Potassium 4.3 mmol/L (3.5-5.0); Total Bilirubin 0.4 mg/dL (0.2-1.0); Total Protein 5.9 g/dL (6.4-8.9)
[2019-05-30] MEDS ORDERED: predniSONE TAB* 20 MG PO ONE (01:04)
[2019-05-30 01:16] VITALS: BP 143/65
[2019-05-30] MEDS ORDERED: Cefdinir cap* 300 MG CAP PO SCH (09:00)
== END 2019-05-30 01:17 | disposition home or self-care (01) ==
LOC: ED 18:02
DX: J44.1 Chronic obstructive pulmonary disease with (acute) exacerbation (principal); N39.0 Urinary tract infection, site not specified; E87.1 Hypo-osmolality and hyponatremia; R05 Cough; R07.9 Chest pain, unspecified; Z79.01 Long term (current) use of anticoagulants; E03.9 Hypothyroidism, unspecified; I48.91 Unspecified atrial fibrillation; E78.00 Pure hypercholesterolemia, unspecified; I10 Essential (primary) hypertension; Z87.891 Personal history of nicotine dependence
CPT/HCPCS: 36415; 71046; 76705; 80053; 83690; 85025; 86140; 99283

== ENCOUNTER 2019-05-31 13:34 | Inpatient (IN) | payer MEDICARE, BC ==
--- NOTE | 2019-05-31 13:56 | ED ---
Syncope/Near Syncope - HPI Summary HPI Summary: This pt is a 78 y/o female presenting to [facility] via EMS c/p laceration over left eyebrow and left shoulder pain s/p head injury today. Pt reports she uses a motorized wheelchair. She states she had taken her motorized wheelchair to the bathroom today to take a shower. Pt notes she thought she stood up to turn on the shower but then found herself on the floor with blood. Pt does not remember falling. She had positive LOC with head strike. Denies back pain, rib pain, neck pain. EMS reports blood glucose of 189. Denies erythema of eyes, sore throat, chest pain, SOB, cough, abd pain, nausea, vomiting, dysuria, hematuria, myalgia, edema, rash, or dizziness. She notes hx of left artificial elbow done by Dr. Alonso and Dr. Moscoso in [facility]. Pt reports she was in the ED a couple of days ago and saw Dr. Scanlon. She states she was seen 1 year ago for hyponatremia. Pt is on anticoagulation. - History Of Current Complaint Chief Complaint: EDSyncope Hx Obtained From: Patient Onset/Duration: Lasting Hours Context: Loss Of Consciousness Activity At Onset: Exertion Associated Head Trauma: Yes Aggravating Factor(s): Nothing Alleviating Factor(s): Nothing Associated Signs And Symptoms: Pain - left shoulder, Other - NEGATIVE: back pain , rib pain, neck pain, sob, chest pain, abd pain, N/V/D. - Allergies/Home Medications Allergies/Adverse Reactions: Allergies Allergy/AdvReac Type Severity Reaction Status Date / Time azathioprine Allergy See Comment Verified 01/09/19 23:02 celecoxib [From Celebrex] Allergy Rash Verified 01/09/19 23:02 chlorhexidine Allergy Rash And Verified 01/09/19 23:02 Itching methotrexate Allergy See Comment Verified 01/09/19 23:02 vancomycin Allergy See Comment Verified 01/09/19 23:02 adhesives AdvReac Intermediate Rash Uncoded 01/09/19 23:02 Home Medications: Home Medications Albuterol 2.5MG/3ML (0.083%)* [Ventolin 2.5 MG/3 ML NEB.RADHA*] 2.5 mg INH Q4H PRN 05/31/19 [History Confirmed 05/31/19] Albuterol inh POWDER (NF) [Proair Respiclick] 1 puff INH DAILY 05/31/19 [ History Confirmed 05/31/19] Amitriptyline TAB* [Elavil TAB*] 25 mg PO BEDTIME MDD 4 tab 05/31/19 [History Confirmed 05/31/19] Dofetilide CAP* [Tikosyn CAP*] 250 mcg PO DAILY 05/31/19 [History Confirmed ] Mometasone/Formoter 100/5 MDI* [Dulera 100/5 MDI*] 2 puff INH DAILY 05/31/19 [ History Confirmed 05/31/19] PMH/Surg Hx/FS Hx/Imm Hx Endocrine/Hematology History: Reports: Hx Anticoagulant Therapy - eliquis, Hx Thyroid Disease - hypothyroidism Denies: Hx Blood Disorders, Hx Blood Transfusions, Hx Bone Marrow Disease, Hx Diabetes, Hx Systemic Lupus Erythematosus, Hx Sickle Cell Disease, Hx Anemia , Hx Unexplained Bleeding, Other Endocrine/Hematological Disorders Cardiovascular History: Reports: Hx Atrial Fibrillation - on blood thinner, Hx Hypercholesterolemia, Hx Hypertension, Hx Valvular Heart Disease - Aortic Valve disease, Other Cardiovascular Problems/Disorders - ON BLOOD THINNER MEDICATION PER Denies: Hx Aneurysm, Hx Angina, Hx Angioplasty, Hx Auto Implanted Cardiovert Defib, Hx Cardiac Arrest, Hx Cardiomegaly, Hx Congenital Heart Disease, Hx Congestive Heart Failure, Hx Coronary Artery Disease, Hx Deep Vein Thrombosis, Hx Embolism, Hx Hypotension, Hx Pacemaker/ICD, Hx Peripheral Vascular Disease, Hx Rheumatic Fever, Hx Syncope Respiratory History: Reports: Hx Sleep Apnea, Other Respiratory Problems/ Disorders - Pulmonary HTN Denies: Hx Asthma, Hx Chronic Bronchitis, Hx Chronic Obstructive Pulmonary Disease (COPD) - with chronic bronchitis, Hx Cystic Fibrosis, Hx Lung Cancer, Hx Pleural Effusion, Hx Pneumonia, Hx Pulmonary Edema, Hx Pulmonary Embolism, Hx Seasonal Allergies GI History: Reports: Hx Gastroesophageal Reflux Disease, Hx Ulcer - gerd, Other GI Disorders - CONSTIPATION- DIET CONTROLLED Denies: Hx Cirrhosis, Hx Crohn's Disease, Hx Diverticulosis, Hx Gall Bladder Disease, Hx Gastrointestinal Bleed, Hx Hiatal Hernia, Hx Irritable Bowel, Hx Jaundice, Hx Obstructive Bowel, Hx Ileostomy, Hx Pyloric Stenosis History: Reports: Other Problems/Disorders - UTIs ONCE IN AWHILE, not recent per pt Denies: Hx Dialysis, Hx Renal Disease Musculoskeletal History: Reports: Hx Arthritis, Hx Back Problems, Hx Orthopedic Injury - Right arm reconstruction r/t traumatic injury, Other Musculoskeletal History - Left Fibula Fracture 08/03/16, psoriatic arthritis Denies: Hx Bursitis, Hx Congenital Bone Abnormalities, Hx Fibromyalgia, Hx Gout, Hx Osteoporosis, Hx Scoliosis, Hx Tendonitis Sensory History: Reports: Hx Cataracts, Hx Contacts or Glasses Denies: Hx Eye Injury, Hx Eye Prosthesis, Hx Glaucoma, Hx Legally Blind, Hx Macular Degeneration, Hx Vision Problem, Hx Deafness, Hx Hearing Aid, Hx Hearing Problem, Other Sensory Impairments Opthamlomology History: Reports: Hx Cataracts, Hx Contacts or Glasses Denies: Hx Eye Injury, Hx Eye Prosthesis, Hx Glaucoma, Hx Legally Blind, Hx Macular Degeneration, Hx Vision Problem, Other Sensory Impairments Neurological History: Denies: Hx CVA, Other Neuro Impairments/Disorders - spinal cord deformities Psychiatric History: Reports: Hx Depression, Hx Suicide Attempt, Hx Substance Abuse - EtOH Denies: Hx Anxiety, Hx Attention Deficit Hyperactivity Disorder, Hx Eating Disorder, Hx Panic Disorder, Hx Post Traumatic Stress Disorder, Hx Inpatient Treatment, Hx Community Mental Health Tx, Hx Schizophrenia, Hx Bipolar Disorder , Hx of Violent Episodes Against Others, Other Psychiatric Issues/Disorders - Cancer History Cancer Type, 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 LT FOOT - REPAIR - RECON W/ METAL;. LUMBAR - DISCETOMY, HERNIATION. 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 REN KNEE REPLACEMENTS (1999 & 2009). Rt ELBOW - ARTIFICIAL JOINT AND METAL PLATE ABOVE JOINT;. TONSILECTOMY. APPENDECTOMY,. OVARIAN CYST REMOVED - REN; . Rt MASTECTOMY- W/ RADIATION. LEFT ANKLE x2 (has hardware),. tubal;. EAR TUBES RECENTLY;. 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, 2012 Denies: Hx Clostridium Difficile, Hx Hepatitis, Hx Human Immunodeficiency Virus (HIV), Hx Shingles, Hx Tuberculosis, Hx Known/Suspected VRE, Hx Known/ Suspected VRSA, History Other Infectious Disease, Traveled Outside the [place] in Last 30 Days - Family History Known Family History: Positive: Other - Breast CA - Social History Alcohol Use: Daily Hx Substance Use: Yes Substance Use Type: Reports: None Substance Use Comment - Amount & Last Used: DILAUDID Hx Tobacco Use: Yes Smoking Status (MU): Former Smoker Type: Cigarettes Amount Used/How Often: 5 a day Length of Time of Smoking/Using Tobacco: 15 yrs Have You Smoked in the Last Year: No Review of Systems Negative: Fever, Chills Negative: Erythema Negative: Sore Throat Negative: Chest Pain Negative: Shortness Of Breath, Cough Negative: Abdominal Pain, Vomiting, Nausea Negative: dysuria, hematuria Musculoskeletal: Other - POSITIVE: left shoulder pain Negative: Myalgia, Edema Skin: Other - POSITIVE: laceration above left eyebrow Negative: Rash Neurological: Other - POSITIVE: LOC. NEGATIVE: dizziness Positive: Syncope All Other Systems Reviewed And Are Negative: Yes Physical Exam - Summary Physical Exam Summary: Constitutional: Well-developed, Well-nourished, Alert, Cooperative Skin: Warm, Dry HENT: Normocephalic; No Racoons eyes; No carmona's sign; No hemotympanum; No maxilla facial tenderness or instability; Dentition are smooth; No dental trauma ; No trismus Eyes: EOM normal, PERRL. 5 mm laceration to the left lateral orbit with bony tenderness. Neck: Trachea is midline. No stridor; No JVD; No step off; No posterior cervical spine tenderness Cardio: Rhythm regular, rate normal Heart sounds normal; Intact distal pulses; The pedal pulses are 2+ and symmetric. Radial pulses are 2+ and symmetric. Pulmonary/Chest wall: Effort normal; Breath sounds normal; Equal chest rise; No flail segment; No rib tenderness; No sternal tenderness Abd: Soft, Appearance normal. No distension; No tenderness; No palpable pulsatile mass; No Cullens sign; No Perales-Turners sign Musculoskeletal: No vertebral body tenderness; No paraspinal tenderness; No step off or deformity of the spine; Pelvis is stable to lateral compression and rock. Mild anterior left shoulder tenderness. Neuro: Alert, Oriented x3, Strength 5/5 all extremities. : No blood at urethral meatus Psych: Mood and affect Normal Triage Information Reviewed: Yes Vital Signs On Initial Exam: Initial Vitals Temp Pulse Resp BP Pulse Ox 97.2 F 53 17 144/70 95 05/31/19 13:43 05/31/19 13:43 05/31/19 13:43 05/31/19 13:43 05/31/19 13:43 Vital Signs Reviewed: Yes - [place] Coma Scale Best Eye Response: 4 - Spontaneous Best Motor Response: 6 - Obeys Commands Best Verbal Response: 5 - Oriented Coma Scale Total: 15 Procedures - Sedation Patient Received Moderate/Deep Sedation with Procedure: No - Laceration/Wound Repair 1 Location: face - left lateral orbit Length, Depth and Shape: 5 mm in length Laceration/Wound Explored: clean Closure: Skin Adhesive Diagnostics - Vital Signs Vital Signs Temp Pulse Resp BP Pulse Ox 05/31/19 13:43 97.2 F 53 17 144/70 95 - Laboratory Result Diagrams: 05/31/19 14:29 05/31/19 14:29 Lab Statement: Any lab studies that have been ordered have been reviewed, and results considered in the medical decision making process. - CT Brain CT CT Interpretation Completed By: Radiologist Summary of CT Findings: IMPRESSION: No acute intracranial pathology. Dr. Ashton has reviewed this report. Cervical spine CT CT Interpretation Completed By: Radiologist Summary of CT Findings: IMPRESSION: 1. The atlantoaxial interval is abnormally increased to 5 mm. Although this could be degenerative in the context of severe left the atlantooccipital degeneration, a cervical spine MRI is recommended to rule out ligamentous injury. 2. No cervical spine fracture. 3. Varying degrees of multilevel spondylosis does not result in severe osseous encroachment spinal canal or neural foramina. Dr. Ashton has reviewed this report. Maxillofacial CT CT Interpretation Completed By: Radiologist Summary of CT Findings: IMPRESSION: No facial fracture. Findings consistent with chronic sinusitis. Dr. Ashton has reviewed this report. - EKG 14:16 Cardiac Rate: Bradycardia - at 50 bpm EKG Rhythm: Sinus Bradycardia Summary of EKG Findings: EKG at 14:16 shows sinus bradycardia at 50 bpm. No STEMI. Re-Evaluation - Re-Evaluation First Eval Re-Evaluation Time: 17:18 Comment: Repaired laceration. Course/Dx Assessment/Plan: Pt is a 78 y/o female presenting to [facility] via EMS c/p laceration over left eyebrow and left shoulder pain s/p head injury today. Pt reports she uses a motorized wheelchair. She states she had taken her motorized wheelchair to the bathroom today to take a shower. Pt notes she thought she stood up to turn on the shower but then found herself on the floor with blood. Pt does not remember falling. She had positive LOC with head strike. Denies back pain, rib pain, neck pain. Test results unremarkable except for hemoglobin of 11.7, sodium of 131 and troponin of 0.05. Brain CT shows no acute intracranial pathology. Maxillofacial CT reveals no facial fracture. Findings consistent with chronic sinusitis. Cervical spine CT shows 1. The atlantoaxial interval is abnormally increased to 5 mm. Although this could be degenerative in the context of severe left the atlantooccipital degeneration, a cervical spine MRI is recommended to rule out ligamentous injury. 2. No cervical spine fracture. 3. Varying degrees of multilevel spondylosis does not result in severe osseous encroachment spinal canal or neural foramina. Pt has no neck pain, she has full neck ROM. Clinically I do not suspect ligamentous injury. I suspect the changes seen in her CT are likely degenerative. Will obtain MRI of C-spine. Laceration was repaired with skin adhesive. Pt tolerated the procedure well. See procedure note. Discussed pt care with Dr. Martin, hospitalist, who accepted the pt for admission. - Diagnoses Provider Diagnoses: Syncope - Physician Notifications Discussed Care of Patient With: Ana Martin - hospitalist Time Discussed With Above Provider: 15:48 Instructed by Provider To: Admit As Inpatient Discharge ED - Sign-Out/Discharge Documenting (check all that apply): Patient Departure - Admit to [facility] - Discharge Plan Condition: Stable Disposition: ADMITTED TO [facility] Referrals: Candace Lopez MD [Primary Care Provider] - - Attestation Statements Document Initiated by Scribe: Yes Documenting Scribe: Yodit Condon Provider For Whom Scribe is Documenting (Include Credential): Alex Ashton MD Scribe Attestation: Yodit Beck, scribed for Alex Ashton MD on 05/31/19 at 2104. Status of Scribe Document: Ready
[2019-05-31 14:37] LABS: ABS Lymphocytes 0.2 10^3/ul (1.0-4.8); ABS Monocytes 0.2 10^3/ul (0-0.8); ABS Neutrophils 4.6 10^3/ul (1.5-7.7); Eosinophil % 0.1 %; Hematocrit 34 % (35-47); Hemoglobin 11.7 g/dL (12.0-16.0); Lymphocyte % 4.5 %; Mean Corpuscular HGB Conc 35 g/dL (31-36); Mean Corpuscular Hemoglobin 31 pg (27-31); Mean Corpuscular Volume 90 fL (80-97); Mean Platelet Volume 6.9 fL (7.4-10.4); Nucleated Red Blood Cells % 0.1; Platelet Count 173 10^3/uL (150-450); Red Blood Count 3.73 10^6 /uL (3.70-4.87); Red Cell Distribution Width 15 % (10-15)
[2019-05-31 14:53] LABS: Albumin 3.9 g/dL (3.2-5.2); Anion Gap 6 mmol/L (2-11); CO2 Carbon Dioxide 27 mmol/L (22-32); Calcium 8.8 mg/dL (8.6-10.3); Chloride 98 mmol/L (101-111); Magnesium 1.9 mg/dL (1.9-2.7); Potassium 4.1 mmol/L (3.5-5.0); Sodium 131 mmol/L (135-145)
[2019-05-31 14:59] LABS: ALT 23 U/L (7-52); AST 31 U/L (13-39); Albumin/Globulin Ratio 1.6 (1-3); Alkaline Phosphatase 52 U/L (34-104); BUN/Creatinine Ratio 18.2 (8-20); Blood Urea Nitrogen 12 mg/dL (6-24); EGFR African American 104.8 (>60); EGFR Non-African American 86.6 (>60); Globulin 2.5 g/dL (2-4); Glucose 138 mg/dL (70-100); Total Protein 6.4 g/dL (6.4-8.9)
[2019-05-31 15:21] LABS: Troponin I 0.05 ng/mL (<0.04)
[2019-05-31 15:31] LABS: TSH (Thyroid Stimulating Horm) 0.49 mcIU/mL (0.34-5.60)
[2019-05-31 16:19] LABS: Urine Appearance Cloudy; Urine Bacteria Absent (Absent); Urine Bilirubin Negative (Negative); Urine Blood Negative (Negative); Urine Color Yellow; Urine Glucose Negative (Negative); Urine Ketones Trace (Negative); Urine Nitrite Negative (Negative); Urine Protein Negative (Negative); Urine Red Blood Cell 1+(3-5/hpf) (Absent); Urine Urobilinogen Negative (Negative); Urine White Blood Cell 3+(>20/hpf) (Absent)
[2019-05-31] MEDS ORDERED: Tetan/Diph/Pertus SYR(Tdap)* 0.5 ML SYR(BOOSTRIX) use SYR contains LATEX IM ONE (16:26)
[2019-05-31] MEDS ORDERED: Acetaminophen TAB* 325 MG PO PRN (17:25)
[2019-05-31] MEDS ORDERED: Losartan TAB* 25 MG PO SCH (18:00)
[2019-05-31] MEDS: Amitriptyline TAB* 25 MG PO SCH (20:37)
[2019-05-31] MEDS: Apixaban* 5 MG TAB PO SCH (20:37)
[2019-05-31] MEDS: hydrALAZINE TAB* 10 MG PO SCH (20:38)
[2019-05-31] MEDS: oxyCODONE SR TAB(*) 20 MG TAB.SR PO SCH (20:39)
[2019-05-31] MEDS: HYDROmorphone TAB* 4 MG PO PRN (20:47)
[2019-05-31] MEDS: Cefdinir cap* 300 MG CAP PO SCH (20:47)
[2019-05-31] MEDS: DULoxetine DR CAP* 60 MG CAP.DR PO SCH (20:47)
[2019-05-31] MEDS: Sulfamethox/Trimethoprim SS 400/80* TAB PO SCH (20:48)
[2019-05-31] MEDS: Hydroxychloroquine TAB* 200 MG PO SCH (20:48)
[2019-05-31] MEDS ORDERED: Hydromorphone ER TAB(NF) 16 MG TAB PO SCH (21:00)
[2019-05-31 23:15] LABS: Troponin I 0.04 ng/mL (<0.04)
--- NOTE | 2019-06-01 00:13 | PN ---
Hospitalist Progress Note Date of Service: 06/01/[address] Baumann who reviewed the CT images and recommended T and L spine x rays. MJ collar to bed placed and bed rest and head of bed no greater than 30 degrees. MRI of the c- spine. He will see the patient in consultation.
[2019-06-01] MEDS: HYDROmorphone TAB* 4 MG PO PRN ×5 (00:54→16:15)
--- NOTE | 2019-06-01 01:28 | HP ---
CC: Dr. Lopez; Dr. Hampton * HISTORY AND PHYSICAL: DATE OF ADMISSION: 05/31/19 PROVIDER: Glory Orozco NP PRIMARY CARE PROVIDER: Dr. Lopez. ATTENDING PHYSICIAN WHILE IN THE HOSPITAL: Dr. Ana Lanza * (dictated by Glory Orozco NP). CHIEF COMPLAINT: Syncope. HISTORY OF PRESENT ILLNESS: Ms. Gusman is a 78-year-old female with a past medical history significant for hypertension, atrial fibrillation, psoriatic arthritis, hypothyroid, aortic stenosis, depression, history of MRSA, hyperlipidemia, chronic pain, GERD, history of congestive heart failure, and history of breast cancer, who presented to the emergency room after a syncopal episode at home. The patient reports she was in her wheelchair, she went to the bathroom. She was getting ready to start the shower, the last thing she remembers was standing up from her wheelchair and went to turn on the shower. The next thing she remembers is lying on the floor. It was unclear how long she had been on the floor before having a return of consciousness. The patient denies any dizziness prior to the syncope. She denies any chest pain or lightheadedness prior to her syncopal episode. The patient denies any recent fevers or unintended weight loss. She denies any chest pain. She does report some mild swelling in her feet. She does report a cough. Denies any hemoptysis or shortness of breath. No nausea, vomiting, diarrhea, or abdominal pain. She does report pain with urination, frequency and urgency. She was recently seen in the emergency room and started on cefdinir yesterday for UTI. Denies any focal weakness, sensory loss, visual complaints, dysphagia. She does complain of left shoulder pain. Denies any arthralgias, myalgias, rashes, lesions, open sores, psychosis, or anxiety. While in the emergency room, the patient had CT of the brain, C-spine and CT of the maxillofacial. CT of the brain was within normal limits. CT of the C- spine showed atlantoaxial interval is abnormal, increased to 5 mm. Although this could be degenerative in the context of severe left atlantooccipital degeneration, a cervical spine MRI is recommended to rule out ligamentous injury. No cervical spine fracture, Varying degrees of multilevel spondylosis does not result in severe osseous encroachment of the spinal canal or neuro foramina. Due to the patient's syncopal episode, Hospital Medicine was asked to see and evaluate the patient. PAST MEDICAL HISTORY: Significant for: 1. Hypertension. 2. Atrial fibrillation. 3. Psoriatic arthritis. 4. Hypothyroidism. 5. Aortic stenosis. 6. Depression. 7. History of MRSA. 8. Hyperlipidemia. 9. Chronic pain. 10. GERD. 11. CHF. 12. History of breast cancer. 13. Osteomyelitis history, left elbow. PAST SURGICAL HISTORY: 1. Back surgery. 2. Elbow surgery x3. 3. Right arm surgery for fracture. 4. Ovarian cyst. 5. Morphine pump placement and removal. 6. Mastectomy. 7. Foot surgery. 8. Bilateral knee replacements. HOME MEDICATIONS: Include: 1. Prednisone 40 mg p.o. daily. 2. Cefdinir 300 mg p.o. b.i.d. 3. Albuterol 1 puff inhaled daily. 4. Albuterol nebulizer 2.5 q.4 hours as needed for shortness of breath. 5. Vitamin B12 of 1000 mcg p.o. daily. 6. Duloxetine 60 mg p.o. at bedtime. 7. Amitriptyline 25 mg p.o. at bedtime. 8. Hydralazine 15 mg p.o. t.i.d. 9. Micardis 40 mg p.o. at bedtime. 10. Bactrim 1 tab p.o. at bedtime. 11. Multivitamin 1 tab p.o. q.a.m. 12. Vitamin D 2000 units p.o. q.a.m. 13. Breo Ellipta 1 puff p.o. daily. 14. Docusate 250 mg p.o. daily. 15. Singulair 10 mg p.o. q.a.m. 16. Plaquenil 200 mg p.o. b.i.d. 17. Norvasc 10 mg p.o. daily. 18. Tikosyn 250 mcg p.o. b.i.d. 19. Eliquis 5 mg p.o. b.i.d. 20. Levothyroxine 137 mcg p.o. daily. 21. Hydromorphone 4 mg p.o. q.4 hours as needed for pain, maximum daily dose of 5. 22. Hydromorphone ER tab 12 mg p.o. b.i.d. ALLERGIES: She has an allergy to: 1. AZATHIOPRINE. 2. CELEBREX. 3. CHLORHEXIDINE. 4. METHOTREXATE. 5. VANCOMYCIN. 6. ADHESIVE. FAMILY HISTORY: Mother with a history of pacemaker, father with a history of coronary artery disease. No reported history of diabetes or cancer in the family. SOCIAL HISTORY: The patient reports she quit smoking several years ago. Denies any alcohol or illicit drug use. She is . Surrogate decision maker in the event she is unable to make her own decisions is her , Mg. She is a full code. REVIEW OF SYSTEMS: A 14-point review of systems was completed. All pertinent positives were mentioned in the HPI. PHYSICAL EXAMINATION GENERAL: At this time, Ms. Gusman is a 78-year-old female. She is resting comfortably on the stretcher in the emergency room. She is in no acute distress. VITAL SIGNS: Blood pressure was 148/75, heart rate 51, respirations 16, O2 saturation 95%, temperature was 97.2. HEENT: She does have ecchymosis and a laceration noted to her left eyebrow; bleeding is controlled. Laceration, Dermabond was applied in the emergency room. Eyes: EOMs are intact. Sclerae anicteric and not pale. Oral mucosa appeared to be moist. NECK: Supple. There is no C-spine tenderness. LUNGS: With scattered rhonchi and expiratory wheezes. Respirations are easy and even. Moist cough is noted. CARDIAC: S1, S2. Loud systolic murmur is noted. No rubs or gallops. ABDOMEN: Soft and nontender. Bowel sounds are present x4. EXTREMITIES: She is able to move all 4 extremities. She does have pitting edema noted to bilateral lower extremities +2, pedal pulses are +2 bilaterally. There is no clubbing or cyanosis. NEUROLOGIC: She is awake, alert, and oriented x3. Speech is clear. Thought process is intact. There are no gross focal deficits. SKIN: She does have a laceration noted to the left eye with surrounding ecchymosis. LABORATORY DATA/DIAGNOSTIC STUDIES: WBCs are 5.0, RBCs 3.73, hemoglobin 11.7, hematocrit is 34, platelet count is 173. Sodium 131, potassium 4.1, chloride 98 , carbon dioxide was 27. Anion gap was 6, BUN was 12, creatinine 0.66. Glucose 138, lactic acid 1.4. Calcium 8.8, magnesium was 1.9. Total bilirubin 0.40, ASTs were 31, ALTs were 23, alkaline phosphatase was 52. Troponin was 0.05, repeat was 0.10. TSH was 0.49. Urine showed pH was 6.0, specific gravity 1.010, ketones were trace, leukocyte esterase was 3+, wbc's were 3+, rbc 's were 1+, bacteria was absent, hyaline casts were present, ascorbic acid was positive. She did have a urine culture from 05/26/19, which showed E. coli greater than 100,000 resistant to Bactrim. She had a CT of the brain, radiologist's impression: No acute intracranial pathology. She had a CT of the cervical spine, radiologist's impression: Atlantoaxial interval is abnormally increased to 5 mm, although this could be degenerative in the context of severe left atlantooccipital degeneration. A cervical spine MRI is recommended to rule out ligamentous injury. No cervical spine fracture. Varying degrees of multilevel spondylosis does not result in severe osseous encroachment, spinal canal or neuro foramina. She had CT of the maxillofacial, no facial fracture findings consistent with chronic sinusitis. She had an electrocardiogram which showed Afib at a rate of 50. ASSESSMENT AND PLAN: Ms. Gusman is a 78-year-old female who presented to the emergency room after a syncopal episode at home. She will be admitted under observation for: 1. Syncope. I suspect this is related to severe to critical aortic stenosis. The patient recently had a transthoracic echocardiogram with Dr. Hampton on . At that time, she had an EF of 60% to 65%. Doppler evidence of grade 2 diastolic dysfunction, trileaflet aortic valve with mild grade 1 regurgitation, severely restricted aortic valve leaflets, severe to critical aortic valve stenosis, mean gradient of 58 mmHg, peak velocity of 4.7, trace mitral regurgitation, moderate restricted mitral valve leaflet, mild mitral valve stenosis, structurally normal tricuspid valve with mild regurgitation, mild pulmonary hypotension when compared to date from January 2018, the LV function is the same and aortic stenosis is worse. I did contact Cardiology for consultation who will see the patient in the a.m. She did have a mildly elevated troponin of 0.05, repeat was 0.10, I suspect this was related to aortic stenosis, syncopal episode followed with unknown amount of time on the floor. At this time, the patient will be placed on telemetry on . We will monitor on telemetry overnight and further recommendations based from Cardiology. 2. Elevated troponin. I suspect this is related to demand ischemia from her syncopal episode and aortic stenosis. We will continue to trend troponin. We will monitor on telemetry. 3. Hypertension. The patient should continue on hydralazine, amlodipine as previously prescribed. 4. Atrial fibrillation. The patient should continue on Tikosyn 250 mcg p.o. b.i.d. Eliquis 5 mg p.o. b.i.d. 5. Hypothyroidism. She should continue on Synthroid 137 mcg p.o. daily. 6. History of chronic osteomyelitis. She should continue on Bactrim 400/80 one tab at bedtime, prophylactic antibiotics. 7. Recent history of UTI. Recently started on cefdinir. She should continue cefdinir 300 mg b.i.d. to complete her treatment for UTI. 8. Depression. She should continue on Cymbalta 60 mg p.o. at bedtime. 9. Chronic pain. I will place the patient on OxyContin 20 mg p.o. daily as the hospital does have hydromorphone ER 12 mg. She will be placed on OxyContin 20 mg b.i.d. and continue her hydromorphone 4 mg p.o. q.4 hours as needed for breakthrough pain. 10. Cervical spine CT abnormality. The patient does have a reported atlantoaxial interval that is abnormally increased to 5 mm. Recommended for an MRI. MRI was unable to be obtained this evening. I will contact Dr. Manuel for consultation and recommendations. 11. FEN: She can have a heart healthy, caffeine okay diet. 12. Code status: She is a full code. 13. DVT prophylaxis. She is on Eliquis. TIME SPENT: Time spent on this admission was 60 minutes, greater than half that time was spent at the bedside reviewing the events leading thus far to her hospitalization, performing physical exam, and reviewing my plan of care. I have discussed this with my attending, Dr. Ana Lanza. She is in agreement with my plan. GLORY OROZCO, BLOCK CLEANER [id number]/[facility] #: [id number] [facility]
[2019-06-01 05:19] LABS: ABS Eosinophils 0.1 10^3/ul (0-0.6); ABS Lymphocytes 0.8 10^3/ul (1.0-4.8); ABS Monocytes 0.6 10^3/ul (0-0.8); ABS Neutrophils 3.2 10^3/ul (1.5-7.7); Eosinophil % 2.7 %; Hematocrit 31 % (35-47); Hemoglobin 10.6 g/dL (12.0-16.0); Lymphocyte % 17.7 %; Mean Corpuscular HGB Conc 34 g/dL (31-36); Mean Corpuscular Hemoglobin 31 pg (27-31); Mean Corpuscular Volume 90 fL (80-97); Mean Platelet Volume 6.9 fL (7.4-10.4); Platelet Count 165 10^3/uL (150-450); Red Blood Count 3.46 10^6 /uL (3.70-4.87); Red Cell Distribution Width 15 % (10-15); White Blood Count 4.8 10^3/uL (3.5-10.8)
[2019-06-01 05:36] LABS: Calcium 8.7 mg/dL (8.6-10.3); EGFR Non-African American 96.7 (>60); HDL Cholesterol 69.7 mg/dL; Potassium 3.8 mmol/L (3.5-5.0)
[2019-06-01] MEDS: Levothyroxine TAB* 137 MCG TAB PO SCH (05:36)
[2019-06-01] MEDS: Mometasone/Formoter 200/5 MDI INH SCH ×2 (07:11→21:18)
[2019-06-01] MEDS: Albuterol HFA INHALER* 8 gm MDI INH SCH (07:12)
[2019-06-01] MEDS ORDERED: amLODIPine TAB* 5 MG PO SCH (09:00)
[2019-06-01] MEDS: Cefdinir cap* 300 MG CAP PO SCH ×2 (09:24→21:20)
[2019-06-01] MEDS: hydrALAZINE TAB* 10 MG PO SCH (09:24)
[2019-06-01] MEDS: Docusate CAP* 100 MG PO SCH (09:27)
[2019-06-01] MEDS: Montelukast Sodium TAB* 10 MG PO SCH (09:30)
[2019-06-01] MEDS: Apixaban* 5 MG TAB PO SCH (09:30)
[2019-06-01] MEDS: Cholecalciferol TAB* 1000 UNITS PO SCH (09:31)
[2019-06-01] MEDS: Multivitamins/Minerals TAB PO SCH (09:31)
[2019-06-01] MEDS: Cyanocobalamin TAB* 500 MCG PO SCH (09:31)
[2019-06-01] MEDS: oxyCODONE SR TAB(*) 20 MG TAB.SR PO SCH (09:32)
[2019-06-01] MEDS: Hydroxychloroquine TAB* 200 MG PO SCH ×2 (11:39→21:20)
[2019-06-01] MEDS ORDERED: Potassium Chlor TAB* 20 MEQ TAB.ER PO ONE (12:06)
[2019-06-01 12:35] LABS: Magnesium 1.9 mg/dL (1.9-2.7)
--- NOTE | 2019-06-01 12:56 | CONS ---
ADDENDUM TO CARDIOLOGY CONSULTATION DIAGNOSTIC STUDIES: An echocardiogram performed on 05/23/[address] Hampton. At that time, she had m oderate LVH, EF was 60 to 65 percent, severe left atrial enlargement, mild AI, severely restricted ao rtic valves with severe to critical aortic stenosis, mean gradient of 58, peak gradient of 4.7, DI of 0.22, trace MR, moderate restricted mitral leaflets, mild mitral stenosis, mild TR, mild pulmonary h ypertension compared to January of 2018, LV function is the same and the is worse, her PA pressure wa s 44. [id number]/[facility] #: [id number]
--- NOTE | 2019-06-01 15:10 | CONS ---
CARDIOLOGY CONSULTATION NOTE: DATE OF CONSULT: 06/01/19 PATIENT OF: Dr. García, Dr. Hampton, and Dr. Guevara REASON FOR EVALUATION: Syncope, aortic stenosis, paroxysmal atrial fibrillation. HISTORY OF PRESENT ILLNESS: This is a very pleasant 78-year-old woman with a longstanding history of aortic stenosis, paroxysmal atrial fibrillation, who was in her usual state of health until this past month. She says that she has been more short of breath with exertion, and she has had a cough over the past week that is consistent with exacerbation of recurrent bronchitis. She also developed dysuria mid week and went to the emergency room on Tuesday, was diagnosed with urinary tract infection and was started on cefdinir on 05/30/19. Yesterday morning she got up, had her breakfast and took her meds around 7. At around 10:30 to 11, she decided to take a shower. She usually uses a wheelchair in the house to get around because of back pain, sometimes she will walk short distances. She wheeled herself to brush her teeth and then decided to standup and take a shower. She does not remember falling but she found herself on the floor with the left side of her head against the ground and a pool of blood near her forehead. Her glasses apparently had lacerated her supraorbital area with the fall. She does not know how long she was out. She was brought to the emergency room and evaluated. Her initial EKG revealed what appeared to be atrial flutter with a controlled ventricular response. She was admitted for further evaluation and C-spine studies, which are pending, and a neurosurgical consultation. She denies chest pain. Her last syncopal episode was several years ago, in rehab and she thought it was related to skipping a dose of Tikosyn but the actual etiology was not determined. Per , reports that now she gets short of breath with just a steps over the last month. She was not aware that she was in atrial flutter. She denies fevers. She did have dysuria and pyuria earlier in the week which have improved. PAST MEDICAL HISTORY: Includes hypertension, multiple afterload reducing agents ; atrial fibrillation; atrial flutter; psoriatic arthritis; hypothyroidism; aortic stenosis; depression; history of MRSA, resolved; hyperlipidemia is listed but she denies it; chronic pain from trauma to her back in the 1970s after falling off a horse, she has had multiple back surgeries and is chronically in pain; gastroesophageal reflux; breast cancer; osteomyelitis of the right elbow, treated with 3 surgeries culminating in removal of her artificial joint, prolonged antibiotics and then replacement of artificial joint. She is followed by Dr. García for chronic immunosuppression. She also has a history of common variable agammaglobulinemia, CVID. 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 Right breast cancer in 2016. PAST SURGICAL HISTORY: Includes back surgery x9, right elbow surgery x3, right arm fracture and surgery, ovarian cyst, morphine pump placement and removal, mastectomy on the right for breast cancer, foot surgery, and bilateral knee replacements. MEDICATIONS: Her home medicines include: 1. Prednisone 40 mg a day. 2. Cefdinir 300 mg b.i.d. 3. Albuterol. 4. Vitamin B12. 5. Duloxetine 60 mg at bedtime. 6. Amitriptyline 25 mg at bedtime. 7. Hydralazine 50 mg t.i.d. 8. Micardis 40 mg p.o. at bedtime. 9. Bactrim 1 tablet at bedtime. 10. Multivitamin 1 tablet q.a.m. 11. Breo Ellipta 1 puff p.o. daily. 12. Docusate 250 mg daily. 13. Singulair 10 mg p.o. q.a.m. 14. Plaquenil 200 mg b.i.d. 15. Norvasc 10 mg a day. 16. Tikosyn 250 mcg p.o. b.i.d. 17. Eliquis 5 mg b.i.d. 18. Levothyroxine 137 mcg daily. 19. Hydromorphone ER 12 mg b.i.d. ALLERGIES: Include VANCOMYCIN with red man syndrome; CELEBREX, rash; METHOTREXATE, AZATHIOPRINE; ADHESIVE. FAMILY HISTORY: She has a brother who has peripheral vascular disease, as well as siblings. Father at 78. Mother at 94. SOCIAL HISTORY: She is and accompanied by her . She has 5 children. She denies alcohol use. She did smoke and quit when she was approximately 35 years of age. REVIEW OF SYSTEMS: Review of systems x10 was negative except as above. PHYSICAL EXAM: She is a well-developed, well-nourished obese female, no apparent distress. Vital signs include blood pressure of 131/39 at 7 a.m. Unable to assess neck veins and carotids due to her cervical spine collar. She has a healing laceration of her left supraorbital area. Extraocular muscles intact. Sclerae anicteric. Cardiac Exam: S1, S2 with a 4/6 systolic ejection murmur heard at the left sternal border, appears to radiate across the precordium, although entire precordium was not accessible due to the neck collar. Chest: Diffuse scattered wheezes and rhonchi at the left base, clear on the right. Abdominal exam: Bowel sounds present, nontender. No hepatosplenomegaly. Femoral pulses intact without bruits. Distal pulses diminished. No edema. Motor strength 5/5 bilaterally. Deep tendon reflexes 2/ 4 in the upper extremities, not evaluated in the lower extremities. DIAGNOSTIC STUDIES/LAB DATA: Chest x-ray, results of which are not available at present. Chest x-ray from 05/29/19 is not available at present. EKG from revealed what appeared to be atrial flutter. Chest x-ray from 05/30/19 reveals stigmata of chronic lung disease, probable pulmonary arterial hypertension, no acute pulmonary process evident. EKG from 05/31/19 revealed atrial flutter with a heart rate that appeared to be indeterminant atrial rhythm , possible atrial flutter with slow ventricular response in the 50s and poor R wave progression. Labs include mild anemia with hemoglobin of 10.6, hematocrit of 31, white count of 4.8, platelet count of 165. Sodium of 136, potassium of 3.8, BUN of 9, creatinine of 0.60. Calcium at 8.7. Cholesterol of 147, LDL of 69, troponins were 0.05, 0.10 last evening, and 0.04 today. Her QT was 500 on the EKG today, therefore we will hold Tikosyn for now which may increase her risk for arrhythmia. Her QT on EKG from yesterday, rhythm was more regular, was 510 with a QTc of 466. DIAGNOSTIC STUDIES: echocardiogram performed on 05/23/[address] Hampton. At that time, she had moderate LVH, EF was 60 to 65 percent, severe left atrial enlargement, mild AI, severely restricted aortic valves with severe to critical aortic stenosis, mean gradient of 58, peak gradient of 4.7, DI of 0.22, trace MR , moderate restricted mitral leaflets, mild mitral stenosis, mild TR, mild pulmonary hypertension compared to January of 2018, LV function is the same and the is worse, her PA pressure was 44. IMPRESSION AND PLAN: My impression is that Ms. 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 She appears to be symptomatic in terms of decreased exercise tolerance. It is unclear whether this is due to bradyarrhythmias or aortic stenosis or atrial flutter with loss of atrial contraction or a combination. I did explain that if she indeed is symptomatic from her aortic stenosis, then her prognosis is guarded without intervention. She also is on afterload reducing agents which may have exacerbated her hemodynamic compromise and had a recent infection and possible dehydration. She also has chronic infectious disease issues which increase her risk for prosthetic material infection at surgery. I discussed these concerns with the patient and her at length and also with Dr. Hampton and for the time being I have recommended the followin. I suggested we hold her afterload reducing agents for the time being and use the minimal amount of medication to control her blood pressure. 2. Would observe her heart rate, atrial flutter, and atrial fibrillation to see if she may benefit from a pacemaker for tachy-satya syndrome, in addition pacemaker will allow us to more definitely control her blood pressure without afterload reducing agents. 3. We will consider a cardiac catheterization to evaluate coronaries in anticipation of possible TVAR. 4. We would continue treatment with antibiotics as you are doing for her urinary tract infection. 5. We will consider a consult with Dr. García to evaluate for input concerning her immunocompromised situation and chronic antibiotics and risk at implant of bioprosthetic material such as a bioprosthetic valve and at pacemaker implantation. 6. Would increase her potassium to above 4. 7. It is unclear if her atrial flutter is contributing to her decompensation due to loss of atrial kick; however, it is uncertain how long she has been in atrial flutter. I am concerned about the potential for QT prolongation on tikosyn particularly with her multiple medications (including bactrim). Given that she is in Aflutter and there are risks of QT prolongation, there may be little benefit of continuing tikosyn especially in light of risks. Therefore,I suggest we hold the tikosyn for now. Discussed with Dr. Milana Real [id number]/[facility] #: [id number] [facility] HOSPITALAurelia
--- NOTE | 2019-06-01 20:08 | PN ---
Subjective Date of Service: 06/01/19 Interval History: Pt is feeling ok currently. Her pain is a 8/10 at this time; typically her pain is around a 3-4/10. She denies any lightheadedness now. No chest pain. She would like to get out of the cervical collar. Objective Active Medications: Acetaminophen (Tylenol Tab*) 650 mg PO Q4H PRN PRN Reason: MILD PAIN or TEMP > 100.4 Albuterol (Ventolin 2.5 Mg/3 Ml Neb.Samreen*) 2.5 mg INH [id number] AWAKE PRN PRN Reason: sob/wheezing Albuterol (Ventolin Hfa Inhaler*) 1 puff INH DAILY ON LICENSE OF [facility] Last Admin: 06/01/19 07:12 Dose: 1 puff Amitriptyline HCl (Elavil Tab*) 25 mg PO BEDTIME ON LICENSE OF [facility] Last Admin: 05/31/19 20:37 Dose: 25 mg Cefdinir (Cefdinir Cap*) 300 mg PO BID ON LICENSE OF [facility] Last Admin: 06/01/19 09:24 Dose: 300 mg Cholecalciferol (Vitamin D Tab*) 2,000 units PO QAM ON LICENSE OF [facility] Last Admin: 06/01/19 09:31 Dose: 2,000 units Cyanocobalamin (Vitamin B12 Tab*) 1,000 mcg PO DAILY ON LICENSE OF [facility] Last Admin: 06/01/19 09:31 Dose: 1,000 mcg Docusate Sodium (Colace Cap*) 200 mg PO QAM ON LICENSE OF [facility] Last Admin: 06/01/19 09:27 Dose: 200 mg Duloxetine HCl (Cymbalta Cap*) 60 mg PO BEDTIME ON LICENSE OF [facility] Last Admin: 05/31/19 20:47 Dose: 60 mg Hydromorphone HCl (Dilaudid Tab*) 4 mg PO Q4HR PRN PRN Reason: PAIN Last Admin: 06/01/19 16:15 Dose: 4 mg Hydroxychloroquine Sulfate (Plaquenil Tab*) 200 mg PO BID ON LICENSE OF [facility] Last Admin: 06/01/19 11:39 Dose: 200 mg Levothyroxine Sodium (Synthroid Tab*) 137 mcg PO 0600 BIJU Last Admin: 06/01/19 05:36 Dose: 137 mcg Mometasone Furoate/Formoterol Fumar (Dulera 200/5 Mdi*) 2 puff INH RT.BID BIJU Last Admin: 06/01/19 07:11 Dose: 2 puff Montelukast Sodium (Singulair Tab*) 10 mg PO QAM ON LICENSE OF [facility] Last Admin: 06/01/19 09:30 Dose: 10 mg Multivitamins/Minerals (Theragran/Minerals Tab*) 1 tab PO QAM ON LICENSE OF [facility] Last Admin: 06/01/19 09:31 Dose: 1 tab Oxycodone HCl (Oxycontin(*)) 30 mg PO Q12HR ON LICENSE OF [facility] Trimethoprim/Sulfamethoxazole (Bactrim Ss 400/80 Tab*) 1 tab PO BEDTIME ON LICENSE OF [facility] Last Admin: 05/31/19 20:48 Dose: 1 tab Vital Signs - 8 hr 06/01/19 06/01/19 06/01/19 13:47 15:00 16:15 Temperature 97.9 F Pulse Rate 100 Respiratory 20 20 18 Rate Blood Pressure 137/61 (mmHg) O2 Sat by Pulse 93 Oximetry Oxygen Devices in Use Now: None Appearance: Elderly female sitting up in bed, NAD Eyes: No Scleral Icterus Ears/Nose/Mouth/Throat: Mucous Membranes Moist Respiratory: Symmetrical Chest Expansion and Respiratory Effort, Clear to Auscultation Cardiovascular: NL Sounds; No Murmurs; No JVD, No Edema, - - irregularly irregular, controlled rate Abdominal: NL Sounds; No Tenderness; No Distention Extremities: No Clubbing, Cyanosis Skin: No Nodules or Sclerosis Neurological: Alert and Oriented x 3 Result Diagrams: 06/01/19 04:52 06/01/19 04:52 Microbiology and Other Data: Microbiology 05/31/19 16:00 Urine Culture - Final Urine No Growth (<1,000 CFU/mL) Assess/Plan/Problems-Billing Ms Gusman is a 78 yo F who has a h/o , afib, HTN, psoriatic arthritis and chronic pain as well as 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 - Patient Problems (1) Syncope Current Visit: Yes Status: Acute Code(s): R55 - SYNCOPE AND COLLAPSE SNOMED Code(s): 301437633 Comment: Likely secondary to her critical . Likely will need catheterization to eval coronaries and AV and transfer for TAVR in near future. (2) Aortic stenosis Current Visit: Yes Status: Chronic Code(s): I35.0 - NONRHEUMATIC AORTIC ( VALVE) STENOSIS SNOMED Code(s): 71863464 Comment: Pt with critical that is likely symptomatic. She needs TAVR. I spoke with Dr. García who notes it has been several years since the patient last had a severe infection. If needed he though she would be an acceptable candidate for valve replacement. (3) Afib Current Visit: Yes Status: Chronic Code(s): I48.91 - UNSPECIFIED ATRIAL FIBRILLATION SNOMED Code(s): 32517701 Comment: HR is controlled not on any rate controlling agents. Eliquis last dose this AM-now held for possible cath Tuesday. Tikosyn held per Dr. Gaston as contraindicated with use of bactrim which she is on chronically as suppressive therapy. (4) Hypertension Current Visit: Yes Status: Acute Code(s): I10 - ESSENTIAL (PRIMARY) HYPERTENSION SNOMED Code(s): 15437207 Comment: BP is controlled. She has been taken off all her medications given her severe . Monitor BP closely. Will look to cardiology for recommendations if BP becomes uncontrolled. (5) Chronic pain Current Visit: Yes Status: Chronic Priority: High Code(s): G89.29 - OTHER CHRONIC PAIN SNOMED Code(s): 25455426 Comment: Pt is on dilaudid ER 12mg BID and dilaudid 4mg q4hr prn. As the hospital does not have dilaudid ER, substitute oxycontin 30mg q12h. Pain currently is worse than baseline. (6) Psoriatic arthritis Current Visit: Yes Status: Acute Code(s): L40.50 - ARTHROPATHIC PSORIASIS, UNSPECIFIED SNOMED Code(s): 534427804 Comment: Continue hydroxychloroquine. (7) Hypothyroid Current Visit: Yes Status: Chronic Code(s): E03.9 - HYPOTHYROIDISM, UNSPECIFIED SNOMED Code(s): 03576741 Comment: Continue current dose of synthroid. (8) CVID (common variable immunodeficiency) Current Visit: Yes Status: Chronic Code(s): D83.9 - COMMON VARIABLE IMMUNODEFICIENCY, UNSPECIFIED SNOMED Code(s): 63024343 Comment: Diagnosis noted (9) DVT prophylaxis Current Visit: Yes Status: Acute Code(s): SDD7980 - SNOMED Code(s): 080034981 Comment: Eliquis placed on hold in anticipation of catheterization early next week. Tomorrow can start SQ heparin. (10) DNR (do not resuscitate) Current Visit: Yes Status: Acute
[2019-06-01] MEDS: oxyCODONE SR TAB(*) 10 MG TAB.SR PO SCH (21:20)
[2019-06-01] MEDS: DULoxetine DR CAP* 60 MG CAP.DR PO SCH (21:20)
[2019-06-01] MEDS: Amitriptyline TAB* 25 MG PO SCH (21:20)
[2019-06-01] MEDS: Sulfamethox/Trimethoprim SS 400/80* TAB PO SCH (21:20)
--- NOTE | 2019-06-02 00:11 | CONS ---
CONSULTATION NOTE: DATE OF CONSULT: 05/31/18 HISTORY OF PRESENT ILLNESS: The patient is a very pleasant 78-year-old female with a history of hypertension, atrial fibrillation, psoriatic arthritis, hypothyroidism, aortic stenosis, depression, history of MRSA, hyperlipidemia, chronic pain, GERD, history of congestive heart failure, and history of breast cancer who presented to the emergency room after reporting a syncopal episode at home. The patient was reported to be in her wheelchair and went to the bathroom, but she had a syncopal episode in the shower, unknown the length of her loss of consciousness. The patient was then admitted to the hospital by the hospitalist team and I was requested to see the patient by the hospitalist team because of CT scan of the cervical spine findings consistent with C2 minimal rotary subluxation with anterior C1-C2 subluxation and increase in the ROBYN. The patient denies any neck pain. Denies any back pain. Denies any weakness, numbness, or tingling of her extremities. She denies any urinary or GI incontinence. PAST MEDICAL HISTORY: 1. Hypertension. 2. Atrial fibrillation. 3. Psoriatic arthritis. 4. Hypothyroidism. 5. Aortic stenosis. 6. Depression. 7. History of MRSA. 8. Hyperlipidemia. 9. Chronic pain. 10. GERD. 11. CHF. 12. Breast cancer. 13. Osteomyelitis. PAST SURGICAL HISTORY: 1. Back surgery. 2. Elbow surgery x3. The patient has an artificial elbow as she reported. 3. Right arm surgery for fracture. 4. Ovarian cyst. 5. Morphine pump placement and removal. 6. Mastectomy. 7. Foot surgery. 8. Bilateral knee replacements. HOME MEDICATIONS: The patient was on: 1. Prednisone. 2. Cefdinir. 3. Albuterol. 4. Vitamin B12. 5. Duloxetine. 6. Amitriptyline. 7. Hydralazine. 8. Micardis. 9. Bactrim. 10. Multivitamin. 11. Vitamin D. 12. Breo Ellipta. 13. Docusate. 14. Singulair. 15. Plaquenil. 16. Norvasc. 17. Tikosyn. 18. Eliquis. 19. Levothyroxine. 20. Hydromorphone. ALLERGIES: The patient is allergic to AZATHIOPRINE, CELEBREX, CHLORHEXIDINE, METHOTREXATE, VANCOMYCIN, ADHESIVE. FAMILY HISTORY: Pacemaker and coronary artery disease. SOCIAL HISTORY: The patient is not a smoker. Denies alcohol or recreational drug use. The patient is and lives with her , Mg. PHYSICAL EXAM: The patient is not in acute distress. She is awake, alert, and oriented x3. Her pupils are equal and reactive. Cranial nerves II through XII are grossly intact. Motor: 4/5 to 5/5 in all extremities. Sensory: Grossly intact to light touch. Deep tendon reflexes +1 bilaterally. No clonus or Babinski's. Wojciech's negative. Straight leg raise negative in the supine position. The patient has some mild instability of the right elbow as she reports that it makes some of the movements of the right upper extremity somewhat restricted. The patient has no tenderness to palpation of the cervical , thoracic or lumbar spine. She has free range of motion of the cervical spine. DIAGNOSTIC STUDIES/LAB DATA: The patient had a CT scan of the brain that did not reveal any acute abnormality. The patient had a CT scan of the cervical spine that revealed AD interval of 5 mm with mild right rotary subluxation of C1 on C2. There was severe degeneration of the atlantooccipital joint with hyperplasia or degeneration of left lateral mass of C1. There was loss of the cervical lordosis with extremely significant degenerative disk disease. The patient had gallstone. ASSESSMENT: The patient is a very pleasant 78-year-old female with a history of psoriatic arthritis with syncopal episode, with CT findings consistent with C1-C2 subluxation. PLAN: The patient was currently admitted to the hospital by the hospitalist team. Because of CT scan imaging finding with a history of psoriatic arthritis, a cervical collar was fitted and the patient was kept on bedrest. The patient was scheduled for an MRI of the cervical spine, which she had the next day. This revealed no acute ligamentous injury, but there is increase in the C1-C2 subluxation and the ROBYN between the study of 06/01/19 and 12/12/18. This results in increase of the stenosis at the C1-C2 level and the diameter of the odontoid basion level is 11 mm, decreased from 13.3 mm on the previous study. 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 This might be the sequelae of her psoriatic arthritis. Because of the decrease in the spinal canal diameter and the AAS, there might be an increased possibility of development of myelopathy in the future and need for surgical intervention. We will discuss the findings with the patient. At this point, we would recommend to obtain flexion-extension x-ray of the cervical spine with AP and lateral views in order to obtain a baseline as well as exclude the possibility of instability with chronic laxity prior to proceeding with the removal of the cervical collar. Thank you for allowing us to participate in the care of this patient. Please do not hesitate to contact our office in case you have any further questions or concerns regarding the care of this patient. [id number]/[facility] #: [id number] NISHA
[2019-06-02] MEDS: HYDROmorphone TAB* 4 MG PO PRN ×2 (04:53→14:47)
[2019-06-02] MEDS: Levothyroxine TAB* 137 MCG TAB PO SCH (04:54)
[2019-06-02] MEDS: Cefdinir cap* 300 MG CAP PO SCH ×2 (08:49→20:04)
[2019-06-02] MEDS: Docusate CAP* 100 MG PO SCH (08:49)
[2019-06-02] MEDS: Cholecalciferol TAB* 1000 UNITS PO SCH (08:49)
[2019-06-02] MEDS: Multivitamins/Minerals TAB PO SCH (08:49)
[2019-06-02] MEDS: Cyanocobalamin TAB* 500 MCG PO SCH (08:49)
[2019-06-02] MEDS: oxyCODONE SR TAB(*) 10 MG TAB.SR PO SCH ×2 (08:50→20:04)
[2019-06-02] MEDS: Montelukast Sodium TAB* 10 MG PO SCH (08:50)
[2019-06-02] MEDS: Hydroxychloroquine TAB* 200 MG PO SCH ×2 (08:50→20:03)
[2019-06-02] MEDS ORDERED: Pneumococcal *Vac Polyvalent 0.5 ML VIAL IM ONE (09:00)
[2019-06-02] MEDS ORDERED: Influenza VAC *QUAD* 2019-20* 0.5 ML SYRINGE IM ONE (09:00)
[2019-06-02] MEDS: Albuterol HFA INHALER* 8 gm MDI INH SCH (09:09)
[2019-06-02] MEDS: Mometasone/Formoter 200/5 MDI INH SCH ×2 (09:09→20:13)
[2019-06-02 12:41] LABS: ABS Eosinophils 0.2 10^3/ul (0-0.6); ABS Lymphocytes 0.8 10^3/ul (1.0-4.8); ABS Monocytes 0.6 10^3/ul (0-0.8); ABS Neutrophils 4.2 10^3/ul (1.5-7.7); Eosinophil % 4.1 %; Hematocrit 33 % (35-47); Hemoglobin 11.2 g/dL (12.0-16.0); Lymphocyte % 13.6 %; Mean Corpuscular HGB Conc 34 g/dL (31-36); Mean Corpuscular Hemoglobin 31 pg (27-31); Mean Corpuscular Volume 90 fL (80-97); Mean Platelet Volume 6.9 fL (7.4-10.4); Platelet Count 199 10^3/uL (150-450); Red Blood Count 3.65 10^6 /uL (3.70-4.87); Red Cell Distribution Width 15 % (10-15); White Blood Count 5.9 10^3/uL (3.5-10.8)
[2019-06-02 12:50] LABS: Activated Partial Thrombo Time 36.7 seconds (26.0-38.0); INR 1.31 (0.82-1.09)
[2019-06-02 12:58] LABS: ALT 19 U/L (7-52); AST 25 U/L (13-39); Albumin 3.8 g/dL (3.2-5.2); Albumin/Globulin Ratio 1.7 (1-3); Alkaline Phosphatase 50 U/L (34-104); Anion Gap 6 mmol/L (2-11); BUN/Creatinine Ratio 16.4 (8-20); Blood Urea Nitrogen 9 mg/dL (6-24); CO2 Carbon Dioxide 28 mmol/L (22-32); Calcium 8.9 mg/dL (8.6-10.3); Chloride 99 mmol/L (101-111); EGFR African American 129.3 (>60); EGFR Non-African American 106.9 (>60); Globulin 2.3 g/dL (2-4); Glucose 112 mg/dL (70-100); Potassium 4.3 mmol/L (3.5-5.0); Sodium 133 mmol/L (135-145); Total Protein 6.1 g/dL (6.4-8.9)
[2019-06-02 13:03] LABS: Troponin I 0.05 ng/mL (<0.04)
--- NOTE | 2019-06-02 14:04 | PN ---
Progress Note - Progress Note Date of Service: 06/02/19 SOAP: Subjective: []Patient on regular floor. Tolerates po well. No events ON. F/E done this am. Patient has no collar on. She is not sure how it was removed. Objective: []VSS AAOx3 LEIGH, CN II-XII grossly intact Motor 4-5/5 all extremities. Patient is sp Rt elbow, left ankle, bilateral knees surgery. Sensory grossly intact to light touch No clonus, No Babinski, Leandro's negative. Assessment: [] 78 yof with hx of psoriatic arthritis, fall after syncopal episode. Plan: []Monitor VS, Neurochecks. Maintain MJ collar at all times. F/E revealed increase in ROBYN with flexion and decrease with extension. MRI reveals stenosis CC junction Previous MRI od T spine reveals T10 are postop changes with myelomalacia. 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 Discussed in extend with patient regarding imaging. Patient has Atlanto axial sublaxation with instability and stenosis of spinal canal at the level of dens with formation of periodontal pannus with hypoplasia / destruction of left C1 lateral mass, with progressive stenosis of central canal of approximatelly 11 mm. Based on the above, patient may benefit from surgical intervention in the form of C1/C2 arthrodesis, posible OC arthrodesis with potential transoral odontoidectomy in the future if pannus will not regress and signs of myelopathy present. Discussed in extends risks and benefits of conservative and surgical approaches as well as possible complications of surgical intervention. Patient reports that she was told that she will need valve replacement surgery. Unclear if patient could be medically stable to undergo above procedure. Patient would like to take some time to think regarding options. Maintain MJ collar at all times for now. Appreciate IM care. Mercy Manuel MD
--- NOTE | 2019-06-02 16:18 | PN ---
Subjective Date of Service: 06/02/19 Interval History: Pt feels worried about her current dx of "bad heart valve" and "unstable cervical spine" She is looking forward to cardiac cath Tuesday and to "have the valve repaired" Objective Active Medications: Acetaminophen (Tylenol Tab*) 650 mg PO Q4H PRN PRN Reason: MILD PAIN or TEMP > 100.4 Albuterol (Ventolin 2.5 Mg/3 Ml Neb.Samreen*) 2.5 mg INH [id number] AWAKE PRN PRN Reason: sob/wheezing Albuterol (Ventolin Hfa Inhaler*) 1 puff INH DAILY [facility] Last Admin: 06/02/19 09:09 Dose: 1 puff Amitriptyline HCl (Elavil Tab*) 25 mg PO BEDTIME [facility] Last Admin: 06/01/19 21:20 Dose: 25 mg Cefdinir (Cefdinir Cap*) 300 mg PO BID [facility] Last Admin: 06/02/19 08:49 Dose: 300 mg Cholecalciferol (Vitamin D Tab*) 2,000 units PO QAM [facility] Last Admin: 06/02/19 08:49 Dose: 2,000 units Cyanocobalamin (Vitamin B12 Tab*) 1,000 mcg PO DAILY [facility] Last Admin: 06/02/19 08:49 Dose: 1,000 mcg Docusate Sodium (Colace Cap*) 200 mg PO QAM [facility] Last Admin: 06/02/19 08:49 Dose: 200 mg Duloxetine HCl (Cymbalta Cap*) 60 mg PO BEDTIME [facility] Last Admin: 06/01/19 21:20 Dose: 60 mg Heparin Sodium (Porcine) (Heparin Vial(*)) 5,000 units SUBCUT Q8HR [facility] Stop: 06/03/19 23:59 Hydromorphone HCl (Dilaudid Tab*) 4 mg PO Q4HR PRN PRN Reason: PAIN Last Admin: 06/02/19 14:47 Dose: 4 mg Hydroxychloroquine Sulfate (Plaquenil Tab*) 200 mg PO BID [facility] Last Admin: 06/02/19 08:50 Dose: 200 mg Levothyroxine Sodium (Synthroid Tab*) 137 mcg PO 0600 [facility] Last Admin: 06/02/19 04:54 Dose: 137 mcg Mometasone Furoate/Formoterol Fumar (Dulera 200/5 Mdi*) 2 puff INH RT.BID [facility] Last Admin: 06/02/19 09:09 Dose: 2 puff Montelukast Sodium (Singulair Tab*) 10 mg PO QAM [facility] Last Admin: 06/02/19 08:50 Dose: 10 mg Multivitamins/Minerals (Theragran/Minerals Tab*) 1 tab PO QAM [facility] Last Admin: 06/02/19 08:49 Dose: 1 tab Oxycodone HCl (Oxycontin(*)) 30 mg PO Q12HR [facility] Last Admin: 06/02/19 08:50 Dose: 30 mg Trimethoprim/Sulfamethoxazole (Bactrim Ss 400/80 Tab*) 1 tab PO BEDTIME [facility] Last Admin: 06/01/19 21:20 Dose: 1 tab Vital Signs - 8 hr 06/02/19 06/02/19 06/02/19 08:26 08:50 09:10 Temperature Pulse Rate 72 Respiratory 20 16 18 Rate Blood Pressure (mmHg) O2 Sat by Pulse 91 Oximetry 06/02/19 06/02/19 11:37 14:47 Temperature 98.7 F Pulse Rate 56 Respiratory 18 16 Rate Blood Pressure 110/78 (mmHg) O2 Sat by Pulse 94 Oximetry Oxygen Devices in Use Now: None Appearance: 78 yo F in nAD, AAOx3 Eyes: No Scleral Icterus, PERRLA Ears/Nose/Mouth/Throat: NL Teeth, Lips, Gums, Mucous Membranes Moist Neck: NL Appearance and Movements; NL JVP, Trachea Midline, - - in c spine collar Respiratory: Symmetrical Chest Expansion and Respiratory Effort, - - coarse rhonchi HOLLY Cardiovascular: - - irregular HR, 3/6 EMMY Abdominal: NL Sounds; No Tenderness; No Distention, No Hepatosplenomegaly Lymphatic: No Cervical Adenopathy Extremities: No Edema, No Clubbing, Cyanosis Skin: No Rash or Ulcers, No Nodules or Sclerosis Neurological: Alert and Oriented x 3, NL Muscle Strength and Tone Result Diagrams: 06/02/19 12:35 06/02/19 12:35 Microbiology and Other Data: Microbiology 05/31/19 16:00 Urine Culture - Final Urine No Growth (<1,000 CFU/mL) Assess/Plan/Problems-Billing Ms Gusman is a 78 yo F who has a h/o , afib, HTN, psoriatic arthritis and chronic pain as well as 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 - Patient Problems (1) Aortic stenosis Comment: Pt with critical that is now symptomatic. She needs TAVR. As d/w Dr. García who notes it has been several years since the patient last had a severe infection. If needed he though she would be an acceptable candidate for valve replacement. (2) Hypertension Comment: BP is controlled. She has been taken off all her medications given her severe . Monitor BP closely. Will look to cardiology for recommendations if BP becomes uncontrolled. (3) Psoriatic arthritis Comment: Continue hydroxychloroquine. (4) Syncope Comment: Likely secondary to her critical . Likely will need catheterization to eval coronaries and AV and transfer for TAVR in near future. (5) Afib Comment: HR is controlled not on any rate controlling agents. Eliquis last dose 06/01-now held for possible cath Tuesday. Tikosyn held per Dr. Gaston as contraindicated with use of bactrim which she is on chronically as suppressive therapy. (6) UTI (urinary tract infection) Comment: Urine grew e.coli 10.12.19 cont Cefdinir (7) COPD with chronic bronchitis Comment: with curent exacerbation of bronchitis, but no bronchospasm noted. Continue home inhalers/nebs. cont Cefrdinir (8) CVID (common variable immunodeficiency) Comment: Diagnosis noted (9) DVT prophylaxis Comment: Eliquis placed on hold in anticipation of catheterization early next week. will start SQ heparin. Status and Disposition: inpatient
[2019-06-02] MEDS: Amitriptyline TAB* 25 MG PO SCH (20:04)
[2019-06-02] MEDS: DULoxetine DR CAP* 60 MG CAP.DR PO SCH (20:04)
[2019-06-02] MEDS: Heparin VIAL(*) 5000 UNITS/ML VIAL (FIVE THOUSAND) SUBCUT SCH (21:52)
[2019-06-02] MEDS: Sulfamethox/Trimethoprim SS 400/80* TAB PO SCH (21:52)
[2019-06-03] MEDS: Levothyroxine TAB* 137 MCG TAB PO SCH (05:11)
[2019-06-03] MEDS: Heparin VIAL(*) 5000 UNITS/ML VIAL (FIVE THOUSAND) SUBCUT SCH ×3 (05:12→21:00)
[2019-06-03] MEDS: HYDROmorphone TAB* 4 MG PO PRN ×5 (05:21→23:29)
[2019-06-03] MEDS: Albuterol HFA INHALER* 8 gm MDI INH SCH (08:14)
[2019-06-03] MEDS: Mometasone/Formoter 200/5 MDI INH SCH (08:14)
[2019-06-03] MEDS ORDERED: Albuterol 2.5 MG/3 ML NEB.SOL* (0.083%) INH PRN (09:01)
[2019-06-03] MEDS: oxyCODONE SR TAB(*) 10 MG TAB.SR PO SCH ×2 (09:09→20:42)
[2019-06-03] MEDS: Cefdinir cap* 300 MG CAP PO SCH ×2 (09:09→20:47)
[2019-06-03] MEDS: Montelukast Sodium TAB* 10 MG PO SCH (09:10)
[2019-06-03] MEDS: Multivitamins/Minerals TAB PO SCH (09:10)
[2019-06-03] MEDS: Hydroxychloroquine TAB* 200 MG PO SCH ×2 (09:10→20:42)
[2019-06-03] MEDS: Docusate CAP* 100 MG PO SCH (09:10)
[2019-06-03] MEDS: Cholecalciferol TAB* 1000 UNITS PO SCH (09:10)
[2019-06-03] MEDS: Cyanocobalamin TAB* 500 MCG PO SCH (09:10)
[2019-06-03] MEDS: Acetylcysteine INHALATION SOL* 200 MG/ML NEB.SOLN 10 ML INH PRN ×2 (14:44→20:28)
[2019-06-03] MEDS: Albuterol 2.5 MG/3 ML NEB.SOL* (0.083%) INH PRN ×2 (14:46→20:28)
--- NOTE | 2019-06-03 15:05 | PN ---
Subjective Date of Service: 06/03/19 Interval History: Pt has no new complaints. still has wet cough and flutter valve is "not helping " Objective Active Medications: Acetaminophen (Tylenol Tab*) 650 mg PO Q4H PRN PRN Reason: MILD PAIN or TEMP > 100.4 Acetylcysteine (Mucomyst Inhalation Samreen*) 400 mg INH Q6H PRN PRN Reason: CONGESTION Last Admin: 06/03/19 14:44 Dose: 400 mg Albuterol (Ventolin 2.5 Mg/3 Ml Neb.Samreen*) 2.5 mg INH [id number] AWAKE PRN PRN Reason: sob/wheezing Last Admin: 06/03/19 14:46 Dose: 2.5 mg Albuterol (Ventolin Hfa Inhaler*) 1 puff INH DAILY [facility] Last Admin: 06/03/19 08:14 Dose: 1 puff Amitriptyline HCl (Elavil Tab*) 25 mg PO BEDTIME [facility] Last Admin: 06/02/19 20:04 Dose: 25 mg Cefdinir (Cefdinir Cap*) 300 mg PO BID [facility] Last Admin: 06/03/19 09:09 Dose: 300 mg Cholecalciferol (Vitamin D Tab*) 2,000 units PO QAM [facility] Last Admin: 06/03/19 09:10 Dose: 2,000 units Cyanocobalamin (Vitamin B12 Tab*) 1,000 mcg PO DAILY [facility] Last Admin: 06/03/19 09:10 Dose: 1,000 mcg Docusate Sodium (Colace Cap*) 200 mg PO QAM [facility] Last Admin: 06/03/19 09:10 Dose: 200 mg Duloxetine HCl (Cymbalta Cap*) 60 mg PO BEDTIME [facility] Last Admin: 06/02/19 20:04 Dose: 60 mg Heparin Sodium (Porcine) (Heparin Vial(*)) 5,000 units SUBCUT Q8HR [facility] Stop: 06/03/19 23:59 Last Admin: 06/03/19 14:38 Dose: 5,000 units Hydromorphone HCl (Dilaudid Tab*) 4 mg PO Q4HR PRN PRN Reason: PAIN Last Admin: 06/03/19 14:38 Dose: 4 mg Hydroxychloroquine Sulfate (Plaquenil Tab*) 200 mg PO BID [facility] Last Admin: 06/03/19 09:10 Dose: 200 mg Levothyroxine Sodium (Synthroid Tab*) 137 mcg PO 0600 [facility] Last Admin: 06/03/19 05:11 Dose: 137 mcg Mometasone Furoate/Formoterol Fumar (Dulera 100/5 Mdi*) 2 puff INH DAILY [facility] Montelukast Sodium (Singulair Tab*) 10 mg PO QAM [facility] Last Admin: 06/03/19 09:10 Dose: 10 mg Multivitamins/Minerals (Theragran/Minerals Tab*) 1 tab PO QAM [facility] Last Admin: 06/03/19 09:10 Dose: 1 tab Oxycodone HCl (Oxycontin(*)) 30 mg PO Q12HR [facility] Last Admin: 06/03/19 09:09 Dose: 30 mg Trimethoprim/Sulfamethoxazole (Bactrim Ss 400/80 Tab*) 1 tab PO BEDTIME [facility] Last Admin: 06/02/19 21:52 Dose: 1 tab Vital Signs - 8 hr 06/03/19 06/03/19 06/03/19 07:10 08:00 08:17 Temperature 98.2 F Pulse Rate 66 69 Respiratory 18 14 18 Rate Blood Pressure 142/56 (mmHg) O2 Sat by Pulse 95 96 Oximetry 06/03/19 06/03/19 06/03/19 08:58 09:09 09:40 Temperature Pulse Rate Respiratory 14 16 18 Rate Blood Pressure (mmHg) O2 Sat by Pulse Oximetry 06/03/19 06/03/19 06/03/19 11:23 14:26 14:38 Temperature 98.4 F Pulse Rate 59 Respiratory 18 16 18 Rate Blood Pressure 137/63 (mmHg) O2 Sat by Pulse 92 Oximetry 06/03/19 14:51 Temperature Pulse Rate 58 Respiratory 16 Rate Blood Pressure (mmHg) O2 Sat by Pulse 98 Oximetry Oxygen Devices in Use Now: None Appearance: 78 yo f in nAD, aAOx3 Eyes: No Scleral Icterus, PERRLA Ears/Nose/Mouth/Throat: NL Teeth, Lips, Gums, Mucous Membranes Moist Neck: NL Appearance and Movements; NL JVP, Trachea Midline Respiratory: Symmetrical Chest Expansion and Respiratory Effort, Clear to Auscultation Cardiovascular: - - 3/6 EMMY, irregular Abdominal: No Hepatosplenomegaly Lymphatic: No Cervical Adenopathy Extremities: No Edema, No Clubbing, Cyanosis Skin: - - left shoulder ecchymosis Neurological: Alert and Oriented x 3, NL Muscle Strength and Tone Result Diagrams: 06/02/19 12:35 06/02/19 12:35 Microbiology and Other Data: Microbiology 05/31/19 16:00 Urine Culture - Final Urine No Growth (<1,000 CFU/mL) Assess/Plan/Problems-Billing Ms Gusman is a 78 yo F who has a h/o , afib, HTN, psoriatic arthritis and chronic pain as well as 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 - Patient Problems (1) Aortic stenosis Comment: Pt with critical that is now symptomatic. She needs TAVR. As d/w Dr. García who notes it has been several years since the patient last had a severe infection. If needed he though she would be an acceptable candidate for valve replacement. Planned for cath tomorrow with Dr. Hampton (2) Hypertension Comment: BP is controlled. She has been taken off all her medications given her severe . Monitor BP closely. Will look to cardiology for recommendations if BP becomes uncontrolled. (3) Psoriatic arthritis Comment: Continue hydroxychloroquine. (4) Syncope Comment: Likely secondary to her critical . Likely will need transfer for TAVR in near future. (5) Afib Comment: HR is controlled not on any rate controlling agents. Eliquis last dose 06/01-now held for possible cath Tuesday. Tikosyn held per Dr. Gaston as contraindicated with use of bactrim which she is on chronically as suppressive therapy. (6) UTI (urinary tract infection) Comment: Urine grew e.coli 05.26.19 cont Cefdinir (7) COPD with chronic bronchitis Comment: with curent exacerbation of bronchitis, but no bronchospasm noted. Continue home inhalers/nebs. cont Cefdinir continues to have wet cough and can't expectorate. will try Mucomyst tx. (8) CVID (common variable immunodeficiency) Comment: Diagnosis noted (9) DVT prophylaxis Comment: Eliquis placed on hold in anticipation of catheterization early next week. cont SQ heparin. Status and Disposition: inpatient
--- NOTE | 2019-06-03 16:24 | PN ---
Progress Note - Progress Note Date of Service: 06/03/19 Note: Patient on regular floor. Tolerates po well. No events ON. Patient has MJ collar on. []VSS AAOx3 LEIGH, CN II-XII grossly intact Motor 4-5/5 all extremities. Patient is sp Rt elbow, left ankle, bilateral knees surgery. Sensory grossly intact to light touch No clonus, No Babinski, Leandro's negative. 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 Maintain MJ collar at all times. Discussed again with patient regarding imaging findings, possible treatment options and possible surgical intervention. Patient would like to wait until her heart issues will be improved. Scheduled for heart cath in am. Full instructions were given. Keep MJ collar on. Fall precautions. Follow up in office in 2-4 weeks. Will be always available if needed. Appreciate IM care. Mercy Manuel MD
[2019-06-03] MEDS: Amitriptyline TAB* 25 MG PO SCH (20:42)
[2019-06-03] MEDS: DULoxetine DR CAP* 60 MG CAP.DR PO SCH (20:42)
[2019-06-03] MEDS: Sulfamethox/Trimethoprim SS 400/80* TAB PO SCH (20:47)
[2019-06-04] MEDS: Levothyroxine TAB* 137 MCG TAB PO SCH (05:19)
[2019-06-04] MEDS: HYDROmorphone TAB* 4 MG PO PRN ×3 (05:22→15:47)
[2019-06-04] MEDS: Mometasone/Formoter 100/5 MDI INH SCH (08:24)
[2019-06-04] MEDS: Albuterol HFA INHALER* 8 gm MDI INH SCH (08:24)
[2019-06-04] MEDS ORDERED: Midazolam* 1 MG/ML 5 ML VIAL (5 MG) ONE (08:41)
[2019-06-04] MEDS ORDERED: fentaNYL* 50 MCG/ML 2 ML VIAL (100 MCG VIAL) ONE ×2 (08:41→10:39)
[2019-06-04] MEDS ORDERED: Lidocaine 1% INJ* 10 MG/ML 30 ML SDV ONE (08:42)
[2019-06-04] MEDS ORDERED: Iohexol 350 (CONTRAST) 200 ML MDV IV ONE ×2 (08:42)
[2019-06-04] MEDS ORDERED: Heparin 2 UNITS/ML IVPREMIX* 2,000 ML IV ONE (08:42)
[2019-06-04] MEDS ORDERED: NS 0.9% 1000 ML** 1,000 ML IV SCH (09:45)
[2019-06-04] MEDS ORDERED: fentaNYL* 50 MCG/ML 2 ML VIAL (100 MCG VIAL) IV ONE (10:35)
[2019-06-04] MEDS: Multivitamins/Minerals TAB PO SCH (11:13)
[2019-06-04] MEDS: Docusate CAP* 100 MG PO SCH (11:14)
[2019-06-04] MEDS: Cholecalciferol TAB* 1000 UNITS PO SCH (11:14)
[2019-06-04] MEDS: Cefdinir cap* 300 MG CAP PO SCH ×2 (11:15→20:13)
[2019-06-04] MEDS: Montelukast Sodium TAB* 10 MG PO SCH (11:15)
[2019-06-04] MEDS: oxyCODONE SR TAB(*) 10 MG TAB.SR PO SCH ×2 (11:16→20:14)
[2019-06-04] MEDS: Hydroxychloroquine TAB* 200 MG PO SCH ×2 (11:20→20:13)
[2019-06-04] MEDS: Cyanocobalamin TAB* 500 MCG PO SCH (11:26)
--- NOTE | 2019-06-04 14:44 | CATH ---
"*[facility]* [place] [address] Main: [phone] [email or web address] Cardiac Catheterization Patient: Dana Gusman : 1940 Study Date: 06/04/2019 Age: 78 Gender: F HR: Height: 63 in /160 cm BSA: 1.94 m^2 Weight: 179.7 lb /81.7 kg BMI: 31.9 kg/m^2 Legal Support Manager: Reji Hampton MD Ordering Physician: Dmitri Gaston MD Referring Physician: Dmitri Gaston MD, Mauser Jonathan F, --- - Left coronary angiography. - Right coronary angiography. - Right femoral sheath side-port angiography. Summary: 1. LAD: Mid-vessel lesion: There is an 80% stenosis. 2. Single vessel CAD. Recommendations: Evaluation for TAVR and possible PCI of LAD. History: Risk factors: Hypertension. Medications: The patient received no antianginal therapy in the last two weeks. Labs, prior tests, procedures, and surgery: Blood tests: Troponin I (pre-procedure) of 0.05 ng/ml. International normalized ratio (INR) of 1.31. Partial thromboplastin time (PTT) of 36.7 sec. Serum potassium (K) of 4.3 mEq/l. Serum sodium (Na) of 133 mEq/l. Serum creatinine (current admission) of 0.55 mg/dl. Blood urea nitrogen of 9 mg/dl. Glucose of 112 mg/dl. Platelet count of 199 th/ul. White blood cell count (WBC) of 0.01 th/ul. Red blood cell count (RBC) of 3650 th/ul. Hematocrit of 33 %. Hemoglobin (pre-procedure) of 11.2 g/dl. Study data: Study status: Cardiac cath: elective. Location: Catheterization laboratory. Consent: The risks, benefits, and alternatives to the procedure were explained to the patient and/or their healthcare care support representative and written informed consent was obtained. All available pre-procedure labs were reviewed. Height: 160 cm. 63 in. Weight: 81.7 kg. 179.7 lb. Body surface area: 1.94 m^2. Body mass index: 31.9 kg/m^2. Procedure: 1. Initial setup. The patient was brought to the laboratory. Surface ECG leads, blood pressure measurements, and pulse oximetric signals were monitored. A baseline seven lead ECG was recorded. A time out was observed per protocol. 2. Skin preparation. The planned puncture sites were prepped and draped in the usual sterile manner. 3. Local anesthesia. 1% lidocaine was administered. 4. Supplemental oxygen. Oxygen, 3 L/min was administered throughout the procedure. 5. Sedation. was administered. 6. Local anesthesia. 1% lidocaine (10 ml) was administered. 7. Right femoral artery access. A 6.5F Merit Prelude sheath was advanced into the vessel. 8. Selective left coronary angiography. A 6F JL 4 catheter was advanced into the left coronary vessel ostium under fluoroscopic guidance. Contrast was injected. Images were obtained in multiple projections. 9. Selective right coronary angiography. A 6F JR 4 catheter was advanced into the right coronary vessel ostium under fluoroscopic guidance. Contrast was injected. Images were obtained in multiple projections. 10. Right femoral sheath side-port angiography, for closure evaluation, under fluoroscopic guidance. Contrast was injected into the sheath side port. 11. Right femoral artery hemostasis. Vessel closure was achieved with a 6/7 Fr MYNX Vascular Closure device. 12. Right femoral artery hemostasis. Vessel closure was achieved with a 6/7 Fr MYNX Vascular Closure device. Study completion: Minimal estimated blood loss. All catheters inserted during the procedure were removed. There were no apparent complications. Administered medications: VERSED (Midazolam), for a total dose of 2mg, IV. Fentanyl, for a total dose of 75mcg, IV. NaCl 0.9% , infusion , at a rate of 100 ml/hr. Contrast: Omnipaque 350 70 ml (total dose). Omnipaque 350 130 ml (wasted). Radiation: Fluoroscopy dose: 80.3 cGy. Discharge: The patient tolerated the procedure well and was discharged from the lab in stable condition. Findings Coronary arteries: Left main: Mildly calcified. Mid-vessel lesion: There is a 0% stenosis. LAD: Mildly calcified. Mid-vessel lesion: There is an 80% stenosis. 1st diagonal: Proximal vessel lesion: There is a 40% stenosis. Left circumflex: Normal, 0% stenosis. Right coronary: Normal, 0% stenosis. Hemodynamics: + + + |Stage description |Condition 1 -| + + + |Arterial pressure s/d (m)|139/61 (91) | + + + Prepared and electronically signed by Reji Hampton MD 06/04/2019 14:43"
--- NOTE | 2019-06-04 15:23 | PN ---
Subjective Date of Service: 06/04/19 Interval History: Pt stated that Mucomyst inhalations definitely made her secretions easier to cough up. she is seen post cath, doing well Objective Active Medications: Acetaminophen (Tylenol Tab*) 650 mg PO Q4H PRN PRN Reason: MILD PAIN or TEMP > 100.4 Acetylcysteine (Mucomyst Inhalation Samreen*) 400 mg INH Q6H PRN PRN Reason: CONGESTION Last Admin: 06/03/19 20:28 Dose: 400 mg Albuterol (Ventolin 2.5 Mg/3 Ml Neb.Samreen*) 2.5 mg INH [id number] AWAKE PRN PRN Reason: sob/wheezing Last Admin: 06/03/19 20:28 Dose: 2.5 mg Albuterol (Ventolin Hfa Inhaler*) 1 puff INH DAILY [facility] Last Admin: 06/04/19 08:24 Dose: Not Given Amitriptyline HCl (Elavil Tab*) 25 mg PO BEDTIME [facility] Last Admin: 06/03/19 20:42 Dose: 25 mg Cefdinir (Cefdinir Cap*) 300 mg PO BID [facility] Last Admin: 06/04/19 11:15 Dose: 300 mg Cholecalciferol (Vitamin D Tab*) 2,000 units PO QAM [facility] Last Admin: 06/04/19 11:14 Dose: 2,000 units Cyanocobalamin (Vitamin B12 Tab*) 1,000 mcg PO DAILY [facility] Last Admin: 06/04/19 11:26 Dose: 1,000 mcg Docusate Sodium (Colace Cap*) 200 mg PO QAM [facility] Last Admin: 06/04/19 11:14 Dose: 200 mg Duloxetine HCl (Cymbalta Cap*) 60 mg PO BEDTIME [facility] Last Admin: 06/03/19 20:42 Dose: 60 mg Hydromorphone HCl (Dilaudid Tab*) 4 mg PO Q4HR PRN PRN Reason: PAIN Last Admin: 06/04/19 11:12 Dose: 4 mg Hydroxychloroquine Sulfate (Plaquenil Tab*) 200 mg PO BID [facility] Last Admin: 06/04/19 11:20 Dose: 200 mg Sodium Chloride (Ns 0.9% 1000 Ml) 1,000 mls @ 100 mls/hr IV .per rate [facility] Stop: 06/04/19 16:00 Levothyroxine Sodium (Synthroid Tab*) 137 mcg PO 0600 [facility] Last Admin: 06/04/19 05:19 Dose: 137 mcg Mometasone Furoate/Formoterol Fumar (Dulera 100/5 Mdi*) 2 puff INH DAILY [facility] Last Admin: 06/04/19 08:24 Dose: Not Given Montelukast Sodium (Singulair Tab*) 10 mg PO QAM [facility] Last Admin: 06/04/19 11:15 Dose: 10 mg Multivitamins/Minerals (Theragran/Minerals Tab*) 1 tab PO QAM [facility] Last Admin: 06/04/19 11:13 Dose: 1 tab Oxycodone HCl (Oxycontin(*)) 30 mg PO Q12HR [facility] Last Admin: 06/04/19 11:16 Dose: 30 mg Trimethoprim/Sulfamethoxazole (Bactrim Ss 400/80 Tab*) 1 tab PO BEDTIME [facility] Last Admin: 06/03/19 20:47 Dose: 1 tab Vital Signs - 8 hr 06/04/19 06/04/19 06/04/19 07:52 07:55 08:00 Temperature Pulse Rate 65 73 Respiratory 18 27 17 Rate Blood Pressure 160/68 (mmHg) O2 Sat by Pulse 86 91 Oximetry 06/04/19 06/04/19 06/04/19 08:01 08:05 09:37 Temperature Pulse Rate 72 75 Respiratory 20 15 Rate Blood Pressure 138/68 135/68 (mmHg) O2 Sat by Pulse 96 88 98 Oximetry 06/04/19 06/04/19 06/04/19 09:59 10:13 10:40 Temperature Pulse Rate 71 70 Respiratory 14 17 16 Rate Blood Pressure 162/74 152/63 (mmHg) O2 Sat by Pulse 96 99 Oximetry 06/04/19 06/04/19 06/04/19 11:08 11:12 11:16 Temperature 98.3 F Pulse Rate 68 Respiratory 14 20 20 Rate Blood Pressure 146/67 (mmHg) O2 Sat by Pulse 93 Oximetry 06/04/19 06/04/19 06/04/19 12:00 12:52 13:07 Temperature 98.4 F 98.4 F Pulse Rate 62 65 Respiratory 16 18 16 Rate Blood Pressure 160/59 102/51 (mmHg) O2 Sat by Pulse 96 93 Oximetry 06/04/19 06/04/19 13:39 13:40 Temperature Pulse Rate Respiratory 18 18 Rate Blood Pressure (mmHg) O2 Sat by Pulse Oximetry Oxygen Devices in Use Now: OxyTrach Appearance: 78 yo F in nAD, aAOx3 Eyes: No Scleral Icterus, PERRLA Ears/Nose/Mouth/Throat: NL Teeth, Lips, Gums, Mucous Membranes Moist Neck: NL Appearance and Movements; NL JVP, Trachea Midline, - - c spine collar in place Respiratory: Symmetrical Chest Expansion and Respiratory Effort, - - wet rhonchi in RUL Cardiovascular: - - irregular/3/6 EMMY Abdominal: NL Sounds; No Tenderness; No Distention, No Hepatosplenomegaly Lymphatic: No Cervical Adenopathy Extremities: No Edema, No Clubbing, Cyanosis Skin: No Nodules or Sclerosis, - - ecchymosis on left shoulder Neurological: Alert and Oriented x 3, NL Muscle Strength and Tone Result Diagrams: 06/02/19 12:35 06/02/19 12:35 Microbiology and Other Data: Microbiology 05/31/19 16:00 Urine Culture - Final Urine No Growth (<1,000 CFU/mL) Assess/Plan/Problems-Billing Ms Gumsan is a 78 yo F who has a h/o , afib, HTN, psoriatic arthritis and chronic pain as well as 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 Pt is on chronic Bactrim for suppression of poss infection of R elbow. - Patient Problems (1) Aortic stenosis Comment: Pt with critical that is now symptomatic. She needs TAVR. As d/w Dr. García who notes it has been several years since the patient last had a severe infection. If needed he though she would be an acceptable candidate for valve replacement. S/p cath today with Dr. Hampton showing 80% mid LAD lesion. Dr. Hampton plans to d/ w [facility] cardiology if pt should be transferred for TAVR right now, or d/c home and the seen as outpatient. If not being transferred pt can go home in AM (2) Hypertension Comment: BP is controlled. She has been taken off all her medications given her severe . Monitor BP closely. Will look to cardiology for recommendations if BP becomes uncontrolled. (3) Psoriatic arthritis Comment: Continue hydroxychloroquine. (4) Syncope Comment: Likely secondary to her critical . (5) Afib Comment: HR is controlled not on any rate controlling agents. Eliquis last dose 06/01- held for cath to be restarted tomorrow. Tikosyn held per Dr. Gaston as contraindicated with use of bactrim which she is on chronically as suppressive therapy. (6) UTI (urinary tract infection) Comment: Urine grew e.coli 05.26.19 cont Cefdinir (7) COPD with chronic bronchitis Comment: with curent exacerbation of bronchitis, but no bronchospasm noted. Continue home inhalers/nebs. cont Cefdinir, last dose tomorrow (7th day) continues to have wet cough and expectorating better on Mucomyst tx. (8) DVT prophylaxis Comment: Eliquis -restart tomorrow (9) Clavicular fracture Comment: closed fracture of sital left clavicle-d/x Dr. Guzman-cont to wear sling and f/u with ortho as outpatient. No limitations in mobility or weight bearing status. 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 Manuel pt's C spine is unstable due to severe arthritic changes . Pt needs to cont wearing c-spine collar indefinetely or have surgery to stabilize c-spine(for which she is not a candidate now due to severe ) (11) CVID (common variable immunodeficiency) Comment: Diagnosis noted Status and Disposition: inpatient
[2019-06-04] MEDS: Albuterol 2.5 MG/3 ML NEB.SOL* (0.083%) INH PRN ×2 (15:26→21:55)
[2019-06-04] MEDS: Acetylcysteine INHALATION SOL* 200 MG/ML NEB.SOLN 10 ML INH PRN ×2 (15:26→21:56)
[2019-06-04] MEDS: DULoxetine DR CAP* 60 MG CAP.DR PO SCH (20:13)
[2019-06-04] MEDS: Amitriptyline TAB* 25 MG PO SCH (20:13)
[2019-06-04] MEDS: Sulfamethox/Trimethoprim SS 400/80* TAB PO SCH (20:13)
[2019-06-05] MEDS: Levothyroxine TAB* 137 MCG TAB PO SCH (05:24)
[2019-06-05] MEDS: HYDROmorphone TAB* 4 MG PO PRN ×3 (05:37→13:53)
[2019-06-05] MEDS: Acetylcysteine INHALATION SOL* 200 MG/ML NEB.SOLN 10 ML INH PRN (08:01)
[2019-06-05] MEDS: Albuterol 2.5 MG/3 ML NEB.SOL* (0.083%) INH PRN (08:02)
[2019-06-05] MEDS: Mometasone/Formoter 100/5 MDI INH SCH (08:06)
[2019-06-05] MEDS: Albuterol HFA INHALER* 8 gm MDI INH SCH (08:08)
[2019-06-05] MEDS ORDERED: Apixaban* 5 MG TAB PO SCH (09:00)
[2019-06-05] MEDS: Cefdinir cap* 300 MG CAP PO SCH (09:36)
[2019-06-05] MEDS: oxyCODONE SR TAB(*) 10 MG TAB.SR PO SCH (09:36)
[2019-06-05] MEDS: Docusate CAP* 100 MG PO SCH (09:37)
[2019-06-05] MEDS: Hydroxychloroquine TAB* 200 MG PO SCH (09:38)
[2019-06-05] MEDS: Montelukast Sodium TAB* 10 MG PO SCH (09:38)
[2019-06-05] MEDS: Cyanocobalamin TAB* 500 MCG PO SCH (09:38)
[2019-06-05] MEDS: Cholecalciferol TAB* 1000 UNITS PO SCH (09:38)
[2019-06-05] MEDS: Multivitamins/Minerals TAB PO SCH (09:38)
[2019-06-05 10:26] LABS: ABS Eosinophils 0.3 10^3/ul (0-0.6); ABS Lymphocytes 0.8 10^3/ul (1.0-4.8); ABS Monocytes 0.7 10^3/ul (0-0.8); ABS Neutrophils 6.8 10^3/ul (1.5-7.7); Eosinophil % 3.3 %; Hematocrit 35 % (35-47); Hemoglobin 11.8 g/dL (12.0-16.0); Lymphocyte % 9.5 %; Mean Corpuscular HGB Conc 34 g/dL (31-36); Mean Corpuscular Hemoglobin 31 pg (27-31); Mean Corpuscular Volume 90 fL (80-97); Mean Platelet Volume 7.3 fL (7.4-10.4); Nucleated Red Blood Cells % 0.2; Platelet Count 230 10^3/uL (150-450); Red Blood Count 3.87 10^6 /uL (3.70-4.87); Red Cell Distribution Width 15 % (10-15); White Blood Count 8.7 10^3/uL (3.5-10.8)
[2019-06-05 10:45] LABS: BUN/Creatinine Ratio 15.4 (8-20); Calcium 8.6 mg/dL (8.6-10.3)
[2019-06-05 11:13] LABS: Potassium 4.2 mmol/L (3.5-5.0)
[2019-06-05 12:44] VITALS: BP 144/58
--- NOTE | 2019-06-05 14:05 | TRS ---
CC: Dr. Lopez; Dr. Hampton; Dr. Manuel * DISCHARGE/TRANSFER SUMMARY DATE OF ADMISSION: 05/31/2019. DATE OF TRANSFER: 06/05/2019. PRIMARY CARE PHYSICIAN: Dr. Lopez. OTHER PROVIDERS: Dr. Hampton, Dr. Manuel. ATTENDING PHYSICIAN: Dr. Andrew Olson * (dictated by WINSTON Morrison). PRIMARY DIAGNOSES: 1. Severe aortic stenosis. 2. 80 percent mid LAD stenosis. 3. C1-2 subluxation. 4. Syncope, likely related to aortic stenosis. 5. COPD exacerbation. 6. Urinary tract infection. 7. Left clavicular fracture. SECONDARY DIAGNOSES: 1. Atrial fibrillation. 2. Hypertension. 3. Psoriatic arthritis. 4. Hypothyroidism. 5. Aortic stenosis. 6. Hyperlipidemia. 7. Depression. 8. Chronic pain. 9. Congestive heart failure. 10. GERD. 11. History of breast cancer. 12. History of osteomyelitis left elbow. 13. History of MRSA. STUDIES WHILE IN THE HOSPITAL: 1. Lumbar spine x-ray: Impression: Postoperative changes from L3 to L4 without fracture. 2. Thoracic spine x-ray: Impression: No radiographic evidence for traumatic thoracic spine injury. 3. Cervical spine MRI: Impression: Degenerative disk disease and osteoarthritis. There is moderate to severe narrowing of the central canal at C1 to C2, progressed from the previous examination. There is mild to moderate narrowing at C2 to C3 with mild narrowing at C4 to C5, C5 to C6, and C6 to C7. There is multilevel neuroforaminal narrowing as described above. There is no ligamentous disruption or soft tissue edema to suggest acute ligament injury. 4. Cervical spine x-ray: Impression: Straightening and reversal of the normal cervical lordosis. The atlantodental interval appears to increase with flexion and reduce with extension. Severe multilevel degenerative disk disease. 5. Left shoulder x-ray: Impression: Nonarticular fracture at the distal third of the clavicle with one cortex width superior displacement. No additional fracture evident within the [id number]. Mild increased transverse gap at the acromioclavicular joint without increased coracoclavicular distance consistent with low-grade AC joint separation. This is an age indeterminant finding. 6. Chest x-ray: Impression: No evidence for active cardiopulmonary disease. PROCEDURES WHILE IN THE HOSPITAL: Cardiac catheterization: Findings: Left main: Mildly calcified, mid vessel lesion, 0 percent stenosis. LAD: Mildly calcified, mid vessel lesion, 80 percent stenosis. First diagonal: Proximal vessel lesion, 40 percent stenosis. Left circumflex, right coronary: Normal, 0 percent stenosis. CONSULTATIONS WHILE IN THE HOSPITAL: 1. Neurosurgery: Admit MRI done. No acute ligamentous injury, but there is increase in C1 to C2 subluxation. Recommend flexion and extension x-ray of the cervical spine with AP and lateral views to obtain baseline. C collar. 2. Cardiology: Suggest holding afterload, reducing agents, consider cardiac cath to evaluate coronaries in anticipate of possible TAVR. Treat UTI. Keep potassium greater than 4. DISCHARGE MEDICATIONS: 1. Acetaminophen 650 mg p.o. q.4 hours prn. 2. Acetylcysteine 400 mg inhalation q.6 hours prn cough. 3. Albuterol HFA inhaler one puff inhalation daily. 4. Amitriptyline 25 mg p.o. at bedtime. 5. Cefdinir 300 mg p.o. b.i.d., last dose today. 6. Cholecalciferol 2,000 units p.o. daily. 7. Cyanocobalamin 1,000 mcg p.o. daily. 8. Docusate sodium 200 mg p.o. daily. 9. Duloxetine 60 mg p.o. at bedtime. 10. Hydromorphone 4 mg p.o. q.4 hours prn pain. 11. Plaquenil 200 mg p.o. b.i.d. 12. Levothyroxine 137 mcg p.o. at 0600. 13. Dulera two puffs inhalation daily. 14. Montelukast 10 mg p.o. daily. 15. Multivitamin/minerals one tab p.o. daily. 16. Oxycodone 30 mg p.o. q.12 hours scheduled. 17. Trimethoprim Sulfa 400/80 one tab p.o. at bedtime. 18. Apixaban 5 mg p.o. b.i.d. HISTORY OF PRESENT ILLNESS/HOSPITAL COURSE: Ms. Gusman is a 78-year-old female with a past medical history of atrial fibrillation, hypertension, hypothyroidism , aortic stenosis, hyperlipidemia, and heart failure who presented to the emergency room on May 31 after a syncopal event at home. For full and complete details, please see the history and physical dictated by Ivy Orozco NP. In short, the patient presents with these symptoms. She denies prodrome. It is important to note that she had been started on Cefdinir the day prior for a UTI. CT of the brain, C-spine and maxillofacial CT was obtained. C1-C2 subluxation was noted on the CT of the C-spine. The patient was admitted to the hospital. Cardiology was consulted for input on the patient 's syncope. She was noted to have an elevated troponin and syncope. Her last echo was 05/23/2019. She had an EF of 60 to 65 percent, grade two diastolic dysfunction, and severe to critical aortic stenosis. This was suspected to be the cause of her syncopal episode. A cardiac catheterization was performed to assess the patient for surgical intervention for TAVR. This showed mid LAD stenosis of 80 percent. Cardiology recommended transfer to [facility] in the setting of severe to critical , mid LAD 80 percent stenosis, C1-2 subluxation. The patient was noted to have a C1-[address] Manuel was consulted. He recommended MJ collar at all times. Discussion was had about possible treatment options, including surgical intervention. In the meantime, the patient will continue to wear an MJ collar. She will be transferred to [facility] for multidisciplinary care for aortic stenosis, CAD, C1 to C2 subluxation. The patient continues to have a cough. She has had a cough throughout her stay. She has a history of COPD with chronic bronchitis. Chest x-ray shows no acute findings. She was also noted to have a UTI. She was started on Cefdinir for this. Mucomyst was given regularly as a mucolytic which the patient found useful. The patient is also on Bactrim for suppressive therapy. REVIEW OF SYSTEMS: The patient complains of continued 8/10 low back and pelvic girdle pain. She states that the low back pain radiates to the right leg posteriorly. She does have intermittent shortness of breath with activity. She does use a motorized wheelchair at home. She denies chest pain, but has a chronic cough which she feels has not changed in the nature recently. She had a bowel movement two days ago. A fourteen point review of systems has been performed and all the pertinent positives and negatives are in the HPI. All other systems are negative. PHYSICAL EXAMINATION: General: Ms. Gusman is a well-developed, well-nourished, obese, 78-year-old female who is sitting up in her chair with C-spine collar in place. She appears to be in no acute distress. Vital signs: Temperature 98.4 temporal, heart rate 65, respiratory rate 20, oxygen saturation 97 percent on room air, blood pressure 144/58. HEENT: PERRL, EOMI, nonicteric sclerae. Hearing grossly intact. Oral mucus membranes are moist. There are no lesions. Unable to visualize posterior pharynx due to restriction and movement from MJ collar. Cardiovascular: Harsh holosystolic murmur noted. S1, S2 present. No rubs, clicks, or gallops. There is no peripheral edema. Pulmonary: Rhonchorous breath sounds throughout with intermittent expiratory wheezing. Chronic cough noted. No digital clubbing or cyanosis. Abdomen: Obese, bowel sounds in all quadrants. Soft, nontender to palpation. Musculoskeletal: Full range of motion. Neuro: The patient is awake. She is alert and oriented times three with cranial nerves grossly intact. She is able to move all of her extremities. She has some low back pain with examination of lower extremity muscle strength. Right upper extremity weakness due to history of elbow infection. DISCHARGE PLAN: Ms. Gusman will be transferred to [facility]. CONDITION: Stable. MEDICATIONS: 1. As above. 2. The patient has completed 7 days of Cefdinir. EDUCATION: 1. Follow-up with primary care provider in four to seven days. 2. Assess need for further follow-up after discharge from [facility]. ACTIVITY: As tolerated. DIET: Heart-healthy. ACCEPTING PHYSICIAN: Dr. Juan J Acosta, [facility]. This is a summarized report of a complex medical history and hospital stay. For further details, please see the entire medical record. TIME SPENT: Approximately 40 minutes were spent on this transfer, greater than half that time was spent [id number] with the patient discussing plans and instructions. WINSTON LOUIE [id number]/[facility] #: [id number] [facility]OSPITALSAurelia
== END 2019-06-05 13:55 | disposition short-term general hospital (02) | DRG 287 ==
LOC: ED 13:34 → MEDTELE 17:25 → OBSVTOIN 06-01 11:00
PROVIDERS: ADMIT Internal Medicine; ATTEND Internal Medicine
PROC: B2111ZZ Fluoroscopy of Multiple Coronary Arteries using Low Osmolar Contrast (ICD-10-PCS; principal; 2019-06-01)
PROC: 0HQ1XZZ Repair Face Skin, External Approach (ICD-10-PCS; 2019-06-01)
DX: I08.3 Combined rheumatic disorders of mitral, aortic and tricuspid valves (principal); S13.120A Subluxation of C1/C2 cervical vertebrae, initial encounter; I48.92 Unspecified atrial flutter; S05.42XA Penetrating wound of orbit with or without foreign body, left eye, initial encounter; N39.0 Urinary tract infection, site not specified; M86.621 Other chronic osteomyelitis, right humerus; D83.9 Common variable immunodeficiency, unspecified; J44.1 Chronic obstructive pulmonary disease with (acute) exacerbation; I48.0 Paroxysmal atrial fibrillation; E03.9 Hypothyroidism, unspecified; E78.00 Pure hypercholesterolemia, unspecified; I27.20 Pulmonary hypertension, unspecified; G47.30 Sleep apnea, unspecified; K21.9 Gastro-esophageal reflux disease without esophagitis; L40.50 Arthropathic psoriasis, unspecified; Z96.653 Presence of artificial knee joint, bilateral; G89.29 Other chronic pain; W19.XXXA Unspecified fall, initial encounter; I50.9 Heart failure, unspecified; I11.0 Hypertensive heart disease with heart failure; E78.5 Hyperlipidemia, unspecified; M47.892 Other spondylosis, cervical region; J32.0 Chronic maxillary sinusitis; G50.0 Trigeminal neuralgia; S42.032A Displaced fracture of lateral end of left clavicle, initial encounter for closed fracture; I25.10 Atherosclerotic heart disease of native coronary artery without angina pectoris; E66.9 Obesity, unspecified; R79.89 Other specified abnormal findings of blood chemistry; F32.9 Major depressive disorder, single episode, unspecified; Z91.5 Personal history of self-harm; Z98.42 Cataract extraction status, left eye; Z98.41 Cataract extraction status, right eye; Z85.3 Personal history of malignant neoplasm of breast; Z92.3 Personal history of irradiation; Z88.8 Allergy status to other drugs, medicaments and biological substances; Z88.1 Allergy status to other antibiotic agents; Z90.11 Acquired absence of right breast and nipple; Z97.11 Presence of artificial right arm (complete) (partial); Z86.14 Personal history of Methicillin resistant Staphylococcus aureus infection; Z87.891 Personal history of nicotine dependence; Z72.89 Other problems related to lifestyle; Y92.002 Bathroom of unspecified non-institutional (private) residence as the place of occurrence of the external cause; Z23 Encounter for immunization; Z79.01 Long term (current) use of anticoagulants; Z68.31 Body mass index [BMI] 31.0-31.9, adult
CPT/HCPCS: 36415; 70450; 70486; 71046; 72040; 72070; 72100; 72125; 72141; 76705; 80048; 80053; 80061; 81003; 81015; 83605; 83690; 83735; 83880; 84443; 84484; 85025; 85610; 85652; 85730; 86140; 87086; 90471; 90686; 90715; 90732; 93005; 93454; 94640; 94762; 99156; 99157; 99283; A9270-GY; C1760; C1887; G0378; J1644; J2250; J3010

== ENCOUNTER 2019-06-20 18:01 | Inpatient (IN) | payer MEDICARE, BC ==
--- OUTSIDE RECORDS SUMMARY | 2019-06-20 18:22 | XMS REPORT | Continuity of Care Document ---
:1940 External Reference #:[id number] Author Name Candace Lopez MD (transmitted by agent of provider Genny Conti) Address [address], [place] [address] Care Team Providers Name Role Phone Guerrero Morgan MD - Rheumatology Care Team Information Slitter And Rewinder Machine Operator Miles Garrett MD - Pulmonary Disease Care Team Information Slitter And Rewinder Machine Operator [phone] Iveth Serrano MD - Infectious Care Team Information Slitter And Rewinder Machine Operator Disease Esmer Maldonado MD - Surgery of the Care Team Information Slitter And Rewinder Machine Operator [phone] Hand Enrique Torres MD - Orthopaedic Surgery Care Team Information Slitter And Rewinder Machine Operator of the Spine Nicola Ricardo MD - Infectious Care Team Information Slitter And Rewinder Machine Operator [phone] Disease Anabell Carrizales MD - Surgery Care Team Information Slitter And Rewinder Machine Operator Emi Kunz MD - Hematology & Care Team Information Slitter And Rewinder Machine Operator [phone] Oncology Reji Hampton MD - Cardiovascular Care Team Information Slitter And Rewinder Machine Operator Disease [facility] - Care Team Information Slitter And Rewinder Machine Operator [phone] Exercise & Sports Wilber Manuel MD - Care Team Information Slitter And Rewinder Machine Operator [phone] Neurological Surgery Marko Peters M.D. - Neurology Care Team Information Slitter And Rewinder Machine Operator [phone] Miles Burdick MD - Rheumatology Care Team Information Slitter And Rewinder Machine Operator Candace Lopez M.D. 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 01/31/2017 Medications Active Medications SIG Qnty Indications Ordering Date Provider Acetylcysteine 5ml nebulized 90ml J44.1 Magali Laurent, 06/13/2019 10% Solution solution, inhaled, as needed every 4-6hrs for SOB J45.909 Lidoderm 1 patch topically 30units B02.23 Marvin Odell, 03/09/2019 5% Patches on for 12 hrs than N.P. off for 12 hours hours to affected area Prednisone Take 6 Tablets By 84tabs Candace Lopez MD 02/14/2019 10mg Tablets Mouth Daily For 4 Days, Reduce By 1 Tablet Every 4 Days Until Finished Amitriptyline HCL 1-4 at bedtime 120tabs B02.29 Candace Lopez MD 01/10/2019 25mg Tablets Hydromorphone HCL one every 4 hours 180tabs Candace Lopez MD 09/26/2018 4mg as needed pain Tablets Aerochamber MV use as directed 1units J40 Candace Lopez MD 09/11/2018 Misc with inhaler Ipratropium one vial via neb 540units J20.9 Candace Lopez MD 08/30/2018 [place]/Albuterol every 4-6 hours Sulfate for 0.5-2.5(3)mg/3ML wheezing/coughing Solution (patient needs 3 month supply) J41.0 Mastectomy Bra use daily as 2units C50.911 Candace Lopez MD 08/02/2018 directed Proair Respiclick 2 puffs four times 1units J41.0 Candace Lopez MD 2017 a day as needed 108(90Base) mcg/Act Aerosol Telmisartan take 1 tablet by 90tabs Candace Lopez MD 06/02/2018 40mg Tablets mouth nightly Vitamin A 1 by mouth every Ernst Terry, 03/06/2018 04255Kinw day M.D.,FACP Capsules Amlodipine Besylate 1 by mouth every 90tabs [...] Motorized Scooter use as directed G89.4 Ernst Terry, 03/25/2017 Jacqueline,FACP I67.83 Plaquenil take 2 tablets by 180tabs L40.50 Miles Heavenly, 02/10/2017 200mg Tablets mouth every day M.DDavid Hydromorphone HCL ER 1 by mouth twice a 60units Candace Lopez MD 2016 12mg day T24a Hydralazine HCL take 2 tabs by mouth 180tabs I10 Fidelia Hankins, 2016 10mg three times a day M.DDavid [...] 90tabs Ernst Brandon 08/03/2007 Tablets Jacqueline Terry,FACP Levothyroxine Sodium 1 by mouth every day 90tabs Candace Lopez MD 137mcg Tablets Vitamin B12 1 by mouth every day Unknown 1000mcg Tablets ER Cymbalta 3 caps daily 270caps F32.9 Candace Lopez MD 30mg Caps DR Tena Pinzon once daily Slava Boyd MD 200-25mcg/Inh Aerosol Clopidogrel Bisulfate Unknown 75mg Tablets Metoprolol Succinate Unknown ER 25mg Tablets ER 24HR Atorvastatin Calcium Unknown 40mg Tablets History Medications Macrobid 1 by mouth 14caps Candace Lopez MD 05/11/2019 - 100mg Capsules twice a day x 7 06/13/2019 days Cipro 1 tab twice a 14tabs Candace Lopez MD 05/07/2019 - 500mg Tablets day for 7 days 06/13/2019 Amoxicillin/Clavulanate take one tablet 15tabs Dunia Cee MD 2018 - Potassium every 8 hours 06/13/2019 500-125mg Tablets Nystatin-Triamcinolone apply twice a 15gm R21 Dunia Cee MD 04/27/2019 - day in thin 06/13/2019 023591-5.1Unit/GM-% layer Cream Valacyclovir HCL 1 tab PO every 21tabs R21 Dunia Cee MD 04/27/2019 - 1gm 8 hours X 7 06/13/2019 Tablets Days Cefuroxime Axetil one po bid for 20tabs Candace Lopez MD 04/02/2019 - 500mg 10 days 04/26/2019 Tablets Amoxicillin one by mouth 21tabs Candace Lopez MD 03/08/2019 - 500mg Tablets three times a 04/26/2019 day for 7 days Clarithromycin one by mouth 14tabs Candace Lopez MD 02/14/2019 - 500mg twice a day for 06/13/2019 Tablets 7 days Cipro 1 tab twice a 14tabs Candace Lopez MD 12/28/2018 - 500mg Tablets day for 7 days 01/03/2019 Valacyclovir HCL 1 tab PO every 21tabs B02.9 Talya Alvares, 12/25/2018 - 1gm 8 hours X 7 M.D. 01/01/2019 Tablets Days Cipro 1 tab twice a 14tabs Candace Lopez MD 12/22/2018 - 500mg Tablets day for 7 days 12/25/2018 Macrobid 1 by mouth 14caps Candace Lopez MD 12/22/2018 - 100mg Capsules twice a day x 7 12/29/2018 days Medications Administered in Office Medication SIG Qnty Indications Ordering Provider Date Triamcinolone (Kenalog) Betito Barry MD 07/18/2018 Injection Triamcinolone (Kenalog) Betito Barry MD 05/18/2018 Injection Triamcinolone (Kenalog) Betito Barry MD 01/19/2018 Injection Triamcinolone (Kenalog) Betito Barry MD 09/09/2017 Injection Immunizations CPT Code Status Date Vaccine Lot # [id number] Given 05/10/2018 Influenza Virus Vaccine, Quadrivalent, Split, [id number] Preservative Free 38022 Given 07/01/2017 Influenza Virus Vaccine, Quadrivalent, Split, [id number] Preservative Free 63268 Given 05/11/2016 Influenza Virus Vaccine, Quadrivalent, Split, [id number] Preservative Free 07201 Given 06/17/2015 Influenza Virus 3Yrs & Over 30194 Given 05/01/2015 Influenza Virus Vaccine, Quadrivalent, Split, [id number] Preservative Free Q2037 Given 12/30/2014 Fluvirin Im 3Yrs And Older 34880 Given 06/13/2014 Pneumococcal Conjugate Vaccine 13 Valent For [id number] Intramuscular Use 38761 Given 06/13/2014 Flu Vaccine Split Virus Preservative Free For [id number] Indiv 3Yr Older 13264 Given 05/16/2013 Flu Vaccine Split Virus Preservative Free For [id number] Indiv 3Yr Older Q2037 Given 05/20/2012 Fluvirin Im 3Yrs And Older 39784 Given 02/29/2012 Zoster (Zostavax) [id number] 41418 Given 02/10/2012 Pneumonia Vaccine [id number] Q2038 Given 06/05/2011 Fluzone Vaccine [id number] 95471 Given 06/25/2010 Influenza Virus 3Yrs & Over 63559 Given 07/25/2009 Influenza Virus Vaccine, Pandemic Formulation [id number] 01353 Given 08/15/2006 Td (History By Patient) Vital Signs Date Vital Result Comment 06/13/2019 11:10am Height 63.5 inches 5'3.50" Weight 171.00 lb Heart Rate 74 /min BP Systolic Sitting 134 mmHg BP Diastolic Sitting 69 mmHg Body Temperature 97.1 F Pain Level 4 O2 % BldC Oximetry 100 % BMI (Body Mass Index) 29.8 kg/m2 04/30/2019 3:39pm Height 63.5 inches 5'3.50" Weight 162.00 lb Heart Rate 72 /min BP Systolic Sitting 132 mmHg BP Diastolic Sitting 72 mmHg Respiratory Rate 14 /min Body Temperature 98.9 F BMI (Body Mass Index) 28.2 kg/m2 Results Test Acquired Date Facility Test Result H/L Range Note CBC Auto 05/31/2019 [facility] White Blood 5.0 10^3/uL Normal 3.5-10.[address] [place] [address] [phone] Red Blood Count 3.73 10^6/uL Normal 3.70-4.87 Hemoglobin 11.7 g/dL Low 12.0-16.0 Hematocrit 34 % Low 35-47 Mean Corpuscular Volume 90 fL Normal 80-97 Mean Corpuscular Hemoglobin 31 pg Normal 27-31 Mean Corpuscular HGB Conc 35 g/dL Normal 31-36 Red Cell Distribution Width 15 % Normal 10-15 Platelet Count 173 10^3/uL Normal 150-450 Mean Platelet Volume 6.9 fL Low 7.4-10.4 Abs Neutrophils 4.6 10^3/uL Normal 1.5-7.7 Abs Lymphocytes 0.2 10^3/uL Low 1.0-4.8 Abs Monocytes 0.2 10^3/uL Normal 0-0.8 Abs Eosinophils 0.0 10^3/uL Normal 0-0.6 Abs Basophils 0.0 10^3/uL Normal 0-0.2 Abs Nucleated RBC 0.0 10^3/uL Granulocyte % 92.2 % Lymphocyte % 4.5 % Monocyte % 3.1 % Eosinophil % 0.1 % Basophil % 0.1 % Nucleated Red Blood Cells % 0.1 Laboratory test 05/31/2019 [facility] Lactic Acid 1.4 mmol/L Normal 0.5-2.0 1 finding [address] [place] [address] [phone] Comp Metabolic 05/31/2019 [facility] Sodium 131 mmol/L Low 135 -145 Panel [address] [place] [address] [phone] Potassium 4.1 mmol/L Normal 3.5-5.0 Chloride 98 mmol/L Low 101-111 Co2 Carbon Dioxide 27 mmol/L Normal 22-32 Anion Gap 6 mmol/L Normal 2-11 Calcium 8.8 mg/dL Normal 8.6-10.3 Albumin 3.9 g/dL Normal 3.2-5.2 Total Bilirubin 0.40 mg/dL Normal 0.2-1.0 Glucose 138 mg/dL High 70-100 Blood Urea Nitrogen 12 mg/dL Normal 6-24 Creatinine 0.66 mg/dL Normal 0.51-0.95 BUN/Creatinine Ratio 18.2 Normal 8-20 Total Protein 6.4 g/dL Normal 6.4-8.9 Globulin 2.5 g/dL Normal 2-4 Albumin/Globulin Ratio 1.6 Normal 1-3 Alkaline Phosphatase 52 U/L Normal 34-104 Alt 23 U/L Normal 7-52 Ast 31 U/L Normal 13-39 Egfr Non- 86.6 >60 Egfr 104.8 >60 2 Laboratory test 05/31/2019 [facility] Magnesium 1.9 mg/dL Normal 1.9-2.[address] [place] [address] [phone] Troponin-I (TnI) 0.05 ng/mL Critical high <0.04 3 TSH (Thyroid Stim Horm) 0.49 mcIU/mL Normal 0.34-5.60 Urinalysis Profile 05/31/2019 [facility] Urine Color Yellow [address] [place] [address] [phone] Urine Appearance Cloudy Urine Specific Clifford 1.010 Normal 1.010-1.030 Urine pH 6.0 Normal 5-9 Urine Urobilinogen Negative Negative Urine Ketones Trace Abnormal Negative Urine Protein Negative Negative Urine Leukocytes 3+ Abnormal Negative Urine Blood Negative Negative * * Abnormal Negative 4 Urine Nitrite Negative Negative Urine Bilirubin Negative Negative Urine Glucose Negative Negative Urine White Blood Cell 3+(>20/hpf) Abnormal Absent Urine Red Blood Cell 1+(3-5/hpf) Abnormal Absent Urine Bacteria Absent Absent Urine Hyaline Casts Present Abnormal Absent Urine Culture And 05/31/2019 [facility] Urine SEE RESULT [address] [place] [address] [phone] CBC Auto Diff 05/29/2019 [facility] White Blood 4.5 10^3/uL Normal 3.5-[address] Count 0.8 [place] [address] [phone] Red Blood Count 3.54 10^6/uL Low 3.70-4.87 Hemoglobin 11.2 g/dL Low 12.0-16.0 Hematocrit 32 % Low 35-47 Mean Corpuscular Volume 90 fL Normal 80-97 Mean Corpuscular Hemoglobin 32 pg High 27-31 Mean Corpuscular HGB Conc 35 g/dL Normal 31-36 Red Cell Distribution Width 15 % Normal 10-15 Platelet Count 164 10^3/uL Normal 150-450 Mean Platelet Volume 6.6 fL Low 7.4-10.4 Abs Neutrophils 2.6 10^3/uL Normal 1.5-7.7 Abs Lymphocytes 1.0 10^3/uL Normal 1.0-4.8 Abs Monocytes 0.5 10^3/uL Normal 0-0.8 Abs Eosinophils 0.3 10^3/uL Normal 0-0.6 Abs Basophils 0.0 10^3/uL Normal 0-0.2 Abs Nucleated RBC 0.0 10^3/uL Granulocyte % 58.4 % Lymphocyte % 22.5 % Monocyte % 12.0 % Eosinophil % 6.6 % Basophil % 0.5 % Nucleated Red Blood Cells % 0.0 Comp Metabolic Panel 05/29/2019 [facility] Sodium 133 mmol/L Low 135-[address] [place] [address] [phone] Potassium 4.3 mmol/L Normal 3.5-5.0 Chloride 99 mmol/L Low 101-111 Co2 Carbon Dioxide 28 mmol/L Normal 22-32 Anion Gap 6 mmol/L Normal 2-11 Glucose 105 mg/dL High 70-100 Blood Urea Nitrogen 14 mg/dL Normal 6-24 Creatinine 0.74 mg/dL Normal 0.51-0.95 BUN/Creatinine Ratio 18.9 Normal 8-20 Calcium 8.8 mg/dL Normal 8.6-10.3 Total Protein 5.9 g/dL Low 6.4-8.9 Albumin 3.8 g/dL Normal 3.2-5.2 Globulin 2.1 g/dL Normal 2-4 Albumin/Globulin Ratio 1.8 Normal 1-3 Total Bilirubin 0.40 mg/dL Normal 0.2-1.0 Alkaline Phosphatase 50 U/L Normal 34-104 Alt 17 U/L Normal 7-52 Ast 22 U/L Normal 13-39 Egfr Non- 75.9 >60 Egfr 91.8 >60 6 Laboratory test 05/29/2019 [facility] Lipase 11 U/L Normal 11.0-82.[address] [place] [address] [phone] C Reactive Protein 31.18 mg/L High <8.01 Urine Culture And 05/26/2019 [facility] Urine SEE RESULT 7 , [address] [place] [address] [phone] Urine Culture And 05/08/2019 [facility] Urine SEE RESULT [address] [place] [address] [phone] Basic Metabolic 04/27/2019 [facility] Sodium 131 mmol/L Low 135-[address] [place] [address] [phone] Potassium 4.4 mmol/L Normal 3.5-5.0 Chloride 97 mmol/L Low 101-111 Co2 Carbon Dioxide 27 mmol/L Normal 22-32 Anion Gap 7 mmol/L Normal 2-11 Glucose 122 mg/dL High 70-100 Blood Urea Nitrogen 12 mg/dL Normal 6-24 Creatinine 0.55 mg/dL Normal 0.51-0.95 BUN/Creatinine Ratio 21.8 High 8-20 Calcium 8.7 mg/dL Normal 8.6-10.3 Egfr Non- 106.9 >60 Egfr 129.3 >60 10 Urine Culture And 04/25/2019 [facility] Urine Culture SEE RESULT [address] [place] [address] [phone] Urinalysis Profile 03/07/2019 [facility] Urine Color Candace [address] [place] [address] [phone] Urine Appearance Turbid Urine Specific Clifford 1.010 Normal 1.010-1.030 Urine pH 8.0 Normal [...] 1+ Abnormal Absent Urine Culture And 03/07/2019 [facility] Urine SEE RESULT [address] [place] [address] [phone] CBC Auto Diff 01/10/2019 [facility] White Blood 5.5 10^3/uL Normal 3.5- [address] Count 10.8 [place] [address] [phone] Red Blood Count 4.43 10^6/uL Normal 3.70-4.87 [...] Cells % 0.1 Comp Metabolic Panel 01/10/2019 [facility] Sodium 133 mmol/L Low 135-145 [address] [place] [address] [phone] Potassium 3.7 mmol/L Normal 3.5-5.0 Chloride 98 [...] Egfr Non- 131.4 >60 Egfr 159.0 >60 14 Comp Metabolic Panel 01/03/2019 [facility] Sodium 132 mmol/L Low 135-[address] [place] [address] [phone] Potassium 4.3 mmol/L Normal 3.5-5.0 Chloride 100 [...] Egfr Non- 131.4 >60 Egfr 159.0 >60 15 Laboratory test 01/03/2019 [facility] Magnesium 1.9 mg/dL Normal 1.9-2.[address] [place] [address] [phone] CBC Auto Diff 01/03/2019 [facility] White Blood 5.1 Normal 3.5 -10.[address] Count 10^3/[place] [address] [phone] Red Blood Count 4.64 10^6/uL Normal 3.70-4.87 [...] Blood Cells % 0.0 Urinalysis Profile 01/03/2019 [facility] Urine Color Yellow [address] [place] [address] [phone] Urine Appearance Cloudy Urine Specific Clifford 1.015 Normal 1.010-1.030 Urine pH 6.0 Normal 5-9 Urine Urobilinogen Negative Negative Urine Ketones Negative Negative Urine Protein Negative Negative Urine Leukocytes Negative Negative Urine Blood Negative Negative Urine Nitrite Negative Negative Urine Bilirubin Negative Negative Urine Glucose Negative Negative Urine Culture And 12/22/2018 [facility] Urine Culture SEE RESULT [address] [place] [address] [phone] Ua Routine 12/22/2018 [employer] House Ua Specific 1.000 Clifford Ua PH 7 Ua Color YELLOW Ua Appera CLOUDY Ua WBC LARGE Ua Protein TRACE Ua Glucose NORM Ua Ketones NEG Ua Bilirubin NEG Ua Urobilinogen NEG Ua Nitrite + Ua Occult Blood TRACE 1 [facility] Severe Sepsis and Septic Shock Management Bundle Measure requires all lactic acids initially measuring >2.0 mmol/L be repeated. 2 Because ethnic data is not always readily [...] 15-29 5 Kidney failure <15 (or dialysis) 3 Result TnIDx:0.05 Called to [id number] at: 15:18:27 by:[id number] Read back by: [id number] Troponin-I testing on Plasma Separator Tubes (PST) has a known false positive rate of 0.20-0.40%. All positive troponins reflex immediately to secondary confirmatory testing. Using the Datam DxI 800 Access Immunoassay systems, the 99th percentile upper reference limit was demonstrated to be < 0.03 ng/mL. 4 *Ascorbic acid is present which may interfere with detection of blood. 5 SEE RESULT BELOW Name: DANA GUSMAN : [address]: Milana Real DO Acct: [id number] Unit: [id number] AGE: 78 Location: [place] [address] Re06/01/19 SEX: F Status: ADM IN SPEC: [id number] MARIA DE JESUS: 05/31/19-[address]: Alex Ashton MD REQ: [id number] RECD: 05/31/19 STATUS: RADHA CRUZ DR: Candace Lopez MD _ SOURCE: URINE [facility]: ORDERED: Urine Culture Procedure Result Reported Site Urine Culture Final 06/01/19- 1224 ML No Growth (<1,000 CFU/mL) * ML - [facility] . END OF REPORT DEPARTMENT OF PATHOLOGY, [address] [place] [address] Naldo Palomo M.D. Director [facility] # [id number] 6 Because ethnic data is not always [...] 5 Kidney failure <15 (or dialysis) 7 pt treated with cipro 8 SEE RESULT BELOW Name: DANA GUSMAN : [address]: Candace Lopez MD Acct: [id number] Unit: [id number] AGE: 78 Location: [facility]: 05/26/19 SEX: F Status: REG REF SPEC: [id number] MARIA DE JESUS: 05/26/19-[address]: Candace Lopez MD REQ: [id number] RECD: 05/26/19 STATUS: COMP _ SOURCE: URINE [facility]ES[facility]: ORDERED: Urine Culture Urine Source: Random Procedure Result Reported Site Urine Culture Final 05/28/19- 0735 ML Organism 1 ESCHERICHIA COLI [place] Count >100,000 (Many) CFU/ML 1. ESCHERICHIA COLI M.I.C. RX --------- ------ Ampicillin <=2 S Cefazolin <=4 S Cefepime <=1 S Ceftriaxone <=1 S Ciprofloxacin <=0.25 S Gentamicin <=1 S Levofloxacin <=0.12 S Meropenem <=0.25 S Nitrofurantoin <=16 S Tetracycline 2 S Pipercillin/Tazobactam <=4 S Trimethoprim/Sulfamethoxazole >=320 R Amoxicillin/Clavulanic Acid <=2 S Aztreonam <=1 S Contact the Microbiology Department for any additional antibiotic reporting. * ML - Main Lab . END OF REPORT DEPARTMENT OF PATHOLOGY, [address] [place] [address] Naldo Palomo M.D. Director [facility] # [id number] 9 SEE RESULT BELOW Name: DANA GUSMAN : [address]: Candace Lopez MD Acct: [id number] Unit: [id number] AGE: 78 Location: [facility] Re05/08/19 SEX: F Status: REG REF SPEC: [id number] MARIA DE JESUS: 05/08/19-[address]: Candace Lopez MD REQ: [id number] RECD: 05/08/19 STATUS: COMP _ SOURCE: URINE [facility]ESC: ORDERED: Urine Culture Procedure Result Reported Site Urine Culture Final 05/10/19- 0755 ML Organism 1 ESCHERICHIA COLI [place] Count >100,000 (Many) CFU/ML 1. ESCHERICHIA COLI [...] END OF REPORT DEPARTMENT OF PATHOLOGY, [address] [place] [address] Naldo Palomo M.D. Director [facility] # [id number] 10 Because ethnic data is not always readily [...] 15-29 5 Kidney failure <15 (or dialysis) 11 SEE RESULT BELOW Name: DANA GUSMAN : [address]: Candace Lopez MD Acct: [id number] Unit: [id number] AGE: 78 Location: [facility] Re04/25/19 SEX: F Status: REG REF SPEC: [id number] MARIA DE JESUS: 04/25/[address]: Candace Lopez MD REQ: [id number] RECD: 04/25/19 STATUS: COMP _ SOURCE: URINE [facility]: ORDERED: Urine Culture Urine Source: Random Procedure Result Reported Site Urine Culture Final 04/27/19- 0900 ML Organism 1 ESCHERICHIA COLI [place] Count >100,000 (Many) CFU/ML 1. ESCHERICHIA COLI [...] END OF REPORT DEPARTMENT OF PATHOLOGY, [address] [place] [address] Naldo Palomo M.D. Director [facility] # [id number] 12 treated with appropriate abx 13 SEE RESULT BELOW Name: ONEIL GUSMANMARJ Mccabe : [address]: Candace Lopez MD Acct: [id number] Unit: [id number] AGE: 78 Location: [facility] Re03/07/19 SEX: F Status: REG REF SPEC: [id number] MARIA DE JESUS: 03/07/19-[address]: Candace Lopez MD REQ: [id number] RECD: 03/07/19 STATUS: COMP _ SOURCE: URINE [facility]ESC: ORDERED: Urine Culture Procedure Result Reported Site Urine Culture Final 03/09/19- 920 ML Organism 1 ESCHERICHIA COLI [place] Count >100,000 (Many) CFU/ML 1. ESCHERICHIA COLI [...] END OF REPORT DEPARTMENT OF PATHOLOGY, [address] [place] [address] Naldo Palomo M.D. Director [facility] # [id number] 14 Because ethnic data is not always readily [...] 15-29 5 Kidney failure <15 (or dialysis) 15 Because ethnic data is not always readily [...] 15-29 5 Kidney failure <15 (or dialysis) 16 SEE RESULT BELOW Name: DANA GUSMAN : [address]: Candace Lopez MD Acct: [id number] Unit: [id number] AGE: 78 Location: [facility] Re12/22/18 SEX: F Status: REG REF SPEC: [id number] MARIA DE JESUS: 12/22/18-15[address] [facility] [address]: Candace Lopez MD REQ: [id number] RECD: 12/22/18 STATUS: COMP _ SOURCE: URINE [facility]: ORDERED: Urine Culture COMMENTS: [id number] Urine Source: Random Procedure Result Reported Site Urine Culture Final 12/25/18- 0832 ML Organism 1 ESCHERICHIA COLI [place] Count >100,000 (Many) CFU/ML 1. ESCHERICHIA COLI [...] END OF REPORT DEPARTMENT OF PATHOLOGY, [address] [place] [address] Naldo Palomo M.D. Director [facility] # [id number] Procedures Date Code Description Status 06/04/2019 21644 Cath PLMT&NJX L Ventriculog Img S&I Completed 05/23/2019 06039 ECHO Transthoracic, Real-Time 2D With Doppler And Completed Color Flow 05/23/2019 14292 ECHO Transthoracic, Real-Time 2D With Doppler And Completed Color Flow 01/29/2019 [id number] Diabetic Retinal Eye Exam Completed 04/21/2017 [id number] Mammogram Completed 02/21/2017 [id number] Diabetic Retinal Eye Exam Completed 04/20/2016 [id number] Mammogram Completed 04/23/2015 [id number] Bone Mineral Density Test Completed 04/23/2015 [id number] Mammogram Completed 04/09/2015 [id number] Mammogram Completed 12/28/2013 [id number] Mammogram Completed 03/27/2012 [id number] Mammogram Completed 02/23/2012 [id number] Bone Mineral Density Test Completed 02/23/2012 [id number] Mammogram Completed 03/21/2008 [id number] Mammogram Completed 08/15/2002 [id number] Colonoscopy Completed Medical Devices Description No Information Available Encounters Type Date Location Provider Dx Diagnosis Office Visit 06/05/2019 [facility] Reji Brandon I35.0 Nonrheumatic aortic 3:14p Of Zuly Hampton M.D. (valve) stenosis I25.10 [facility] heart disease of [place] coronary artery w/o ang pctrs Office Visit 06/04/2019 12:09p [facility] Reji Brandon I35.0 Nonrheumatic Of Zuly Hampton M.D. aortic (valve) stenosis I25.10 Athscl heart disease of [place] coronary artery w/o ang pctrs Office Visit 06/04/2019 [facility] Amirah Ordoñez, I35.0 Nonrheumatic 11:23a Assoc,elva Phillips aortic (valve) Hospitalists stenosis J44.1 Chronic obstructive pulmonary disease w (acute) exacerbation S42.002A Fracture of unsp part of left clavicle, init for clos fx N39.0 Urinary tract infection, site not specified B96.20 Unsp Escherichia coli as the cause of diseases classd elswhr Office Visit 06/03/2019 12:13p [facility] Dmitri Telles5 Darren M.D. collapse I35.0 Nonrheumatic aortic (valve) stenosis I10 Essential (primary) hypertension I48.92 Unspecified atrial flutter I48.91 Unspecified atrial fibrillation Office Visit 06/03/2019 [facility] Amirah Larsenhn, I35.0 Nonrheumatic 11:23a elva Oakley M.D. aortic (valve) Hospitalists stenosis J44.1 Chronic obstructive pulmonary disease w (acute) exacerbation N39.0 Urinary tract infection, site not specified B96.20 Unsp Escherichia coli as the cause of diseases classd elswhr I10 Essential (primary) hypertension L40.50 Arthropathic psoriasis, unspecified I48.91 Unspecified atrial fibrillation Office Visit 06/02/2019 12:12p [facility] Dmitri Telles5 Darren M.D. 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 collapse Hospitalists I35.0 Nonrheumatic aortic (valve) stenosis I48.20 Chronic atrial fibrillation, unspecified I10 Essential (primary) hypertension G89.29 Other chronic pain L40.50 Arthropathic psoriasis, unspecified Office Visit 06/01/2019 12:03p [facility] Dmitri Manzo R55 Syncope and Jacqueline Gaston collapse R06.02 Shortness of breath I35.0 Nonrheumatic aortic (valve) stenosis I48.0 Paroxysmal atrial fibrillation I48.92 Unspecified atrial flutter N39.0 Urinary tract infection, site not specified J42 Unspecified chronic bronchitis Office Visit 04/30/2019 3:40p [facility] Nicola Brandon B37.2 Candidiasis of Infectious Jacqueline Ricardo skin and nail Diseases Office Visit 04/27/2019 1:00p [facility] Dunia Cee MD N39.0 Urinary tract Medicine [facility] infection, site not specified R21 Rash and other nonspecific skin eruption Office Visit 04/26/2019 2:40p [facility] Dunia Cee R10.32 [facility] quadrant pain J20.9 Acute bronchitis, unspecified N39.0 Urinary tract infection, site not specified Office Visit 04/04/2019 11:40a Rheumatology Miles Burdick, 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 Office Visit 01/10/2019 10:00a [facility] Medicine Candace Lopez MD R04.2 [facility]29 Other postherpetic nervous system involvement J41.0 Simple chronic bronchitis G89.4 Chronic pain syndrome F33.1 Major depressive disorder, recurrent, moderate Office Visit 01/03/2019 8:50a [facility] Talya Alvares, R10.32 [facility] quadrant pain B02.9 Zoster without complications Office Visit 12/25/2018 11:30a [facility] Talya Alvares N30.00 [facility] without hematuria B02.9 Zoster without complications Assessments Date Code Description Provider 06/13/2019 I35.0 Nonrheumatic aortic (valve) stenosis Magali Laurent MD 06/13/2019 J44.1 Chronic obstructive pulmonary disease Magali Laurent MD with (acute) exacerbation 06/13/2019 G89.4 Chronic pain syndrome Magali Laurent MD 06/13/2019 N39.0 Urinary tract infection, site not Magali Laurent MD specified 06/13/2019 Z86.14 Personal history of Methicillin Magali Laurent MD resistant Staphylococcus aureus infection 06/13/2019 I10 Essential (primary) hypertension Magali Laurent MD 06/05/2019 I35.0 Nonrheumatic aortic (valve) stenosis Reji Hampton M.D. 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 06/04/2019 J44.1 Chronic obstructive pulmonary disease Amirah Ordoñez M.D. with (acute) exacerbation 06/04/2019 I35.0 Nonrheumatic aortic (valve) stenosis Reji Hampton M.D. 06/04/2019 S42.002A Fracture of unspecified part of left Amirah Ordoñez M.D. clavicle, initial encounter for closed fracture 06/04/2019 N39.0 Urinary tract infection, site not Amirah Ordoñez M.D. 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 coli] Amirah Ordoñez M.D. as the cause of diseases classified elsewhere 06/03/2019 R55 Syncope and collapse Dmitri Gaston M.D. 06/03/2019 I35.0 Nonrheumatic aortic (valve) stenosis Amirah Ordoñez M.D. 06/03/2019 I35.0 Nonrheumatic aortic (valve) stenosis Dmitri Gaston M.D. 06/03/2019 J44.1 Chronic obstructive pulmonary disease Amirah Ordoñez M.D. with (acute) exacerbation 06/03/2019 I10 Essential (primary) hypertension Dmitri Gaston M.D. 06/03/2019 N39.0 Urinary tract infection, site not Amirah Ordoñez M.D. specified 06/03/2019 I48.92 Unspecified atrial flutter Dmitri Gaston M.D. 06/03/2019 B96.20 Unspecified Escherichia coli [E. coli] mAirah Ordoñez M.D. as the cause of diseases classified elsewhere 06/03/2019 I48.91 Unspecified atrial fibrillation Dmitri Gaston M.D. 06/03/2019 I10 Essential (primary) hypertension Amirah Ordoñez M.D. 06/03/2019 L40.50 Arthropathic psoriasis, unspecified Amirah Ordoñez M.D. 06/03/2019 I48.91 Unspecified atrial fibrillation Amirah Ordoñez M.D. 06/02/2019 R55 Syncope and collapse Dmitri Gaston M.D. 06/02/2019 I35.0 Nonrheumatic aortic (valve) stenosis Amirah Ordoñez M.D. 06/02/2019 I35.0 Nonrheumatic aortic (valve) stenosis Dmitri Gaston M.D. 06/02/2019 J44.1 Chronic obstructive pulmonary disease Amirah Ordoñez M.D. with (acute) exacerbation 06/02/2019 I48.92 Unspecified atrial flutter Dmitri Gaston M.D. 06/02/2019 B96.20 Unspecified Escherichia coli [E. coli] Amirah Ordoñez M.D. as the cause of diseases classified elsewhere 06/02/2019 N39.0 Urinary tract infection, site not Amirah Ordoñez M.D. specified 06/02/2019 I48.91 Unspecified atrial fibrillation Dmitri Gaston M.D. 06/02/2019 I10 Essential (primary) hypertension Amirah Ordoñez M.D. 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 06/02/2019 I48.91 Unspecified atrial fibrillation Amirah Ordoñez M.D. 06/02/2019 L40.50 Arthropathic psoriasis, unspecified Amirah Ordoñez M.D. 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 06/01/2019 R55 Syncope and collapse Dmitri Gaston M.D. 06/01/2019 R55 Syncope and collapse Aurelia Castro.O. 06/01/2019 R06.02 Shortness of breath Dmitri Gaston M.D. 06/01/2019 I35.0 Nonrheumatic aortic (valve) stenosis Aurelia Castro.O. 06/01/2019 I35.0 Nonrheumatic aortic (valve) stenosis Dmitri Gaston M.D. 06/01/2019 I48.20 Chronic atrial fibrillation, Milana Real D.O. unspecified 06/01/2019 I48.0 Paroxysmal atrial fibrillation Dmitri Gaston M.D. 06/01/2019 I10 Essential (primary) hypertension Aurelia Castro.O. 06/01/2019 I48.92 Unspecified atrial flutter Dmitri Gaston M.D. 06/01/2019 G89.29 Other chronic pain Roma CastroODavid 06/01/2019 N39.0 Urinary tract infection, site not Dmitri Gaston M.D. specified 06/01/2019 L40.50 Arthropathic psoriasis, unspecified Milana Real D.O. 06/01/2019 J42 Unspecified chronic bronchitis Dmitri Gaston M.D. 05/31/2019 R55 Syncope and collapse Ivy Orozco NP 05/31/2019 R79.89 Other specified abnormal findings of Iyv Orozco NP blood chemistry 05/31/2019 I10 Essential (primary) hypertension Ivy Orozco NP 05/23/2019 I10 Essential (primary) hypertension Reji Hampton M.D. 05/23/2019 I10 Essential (primary) hypertension Traveling ECHO 1 04/30/2019 B37.2 Candidiasis of skin and nail [...] Burdick M.D. pathological fracture 04/04/2019 Z79.899 Other fdc (current) drug therapy Miles Burdick M.D. 04/04/2019 M19.049 Primary osteoarthritis, unspecified Miles Burdick M.D. 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 03/09/2019 R51 Headache Marvin Odell, N.P. 03/09/2019 M48.061 Spinal stenosis, lumbar region without Marvin Odell, N.P. neurogenic claudicati 03/09/2019 M54.6 Pain in thoracic spine Marvin Odell, N.P. 03/09/2019 R32 Unspecified urinary incontinence Marvin Odell, N.P. 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 01/10/2019 R04.2 Hemoptysis Candace Lopez MD 01/10/2019 B02.29 Other postherpetic nervous system Candace Lopez MD involvement 01/10/2019 J41.0 Simple chronic bronchitis Candace Lopez MD 01/10/2019 G89.4 Chronic pain syndrome Candace Lopez MD 01/10/2019 F33.1 Major depressive disorder, recurrent, Candace Lopez MD moderate 01/03/2019 R10.32 Left lower quadrant pain Talya Alvares M.D. 01/03/2019 B02.9 Zoster without complications Talya Alvares M.D. 12/25/2018 N30.00 Acute cystitis without hematuria Talya Alvares M.D. 12/25/2018 B02.9 Zoster without complications Talya Alvares M.D. 12/22/2018 R30.0 Dysuria Nurse Visit A 12/22/2018 M54.5 Low back pain Nurse Visit A Plan of Treatment Future Appointment(s):07/09/2019 1:30 pm - Nurse Visit IC at [facility]07/18/2019 11:00 am - [facility]ca ECHO Schedule at [facility]2019 1:00 pm - Miles Burdick M.D. at [facility]06/13/2019 - Magali Laurent MDI35.0 Nonrheumatic aortic (valve) stenosisComments:Stable on presentation todayCardio appt next weekFollow up with this office in 2-3 iuihfeG57.1 Chronic obstructive pulmonary disease with (acute) exacerbationNew Medication:Acetylcysteine 10 % - 5ml nebulized solution, inhaled, as needed every 4-6hrs for SOBComments:Continue on BreoMucomyst added to medications to help with lsrftkxlT84.4 Chronic pain rfdkzkchD86.0 Urinary tract infection, site not specifiedComments:Stop taking an antibiotics at home which is specifically for UTI, not bzuqibwzzkexceeiS49.14 Personal history of Methicillin resistant Staphylococcus aureus infectionComments:Dr Lalita AGUSTIN Continues on vancomycin for [id number] Essential (primary) hypertensionComments:Follow up in 2-3 months for repeat labs, etc. Functional Status Functional Condition Comment Date Status Standard cane is used to ambulate Active Mental Status Description No Information Available Referrals Refer to Reason for Referral Status Appt Date Kunal De Guzman MD evaluation of wheelchair bound patient with Sent 2018 chronic constipation and recurrent UTIs as well as incontinence. [address] [facility] [place] [address] [place] [address] [phone] Other Physician Practices REF: DR. LLOYD FELIPE [facility] Sent [facility] PHONE: [phone] FAX: [phone] Param Tavarez MD pls evaluate pt with severe chronic pain who is Sent interested in medical cannabis [address] [place] [address] [phone] Chris Childs MD Sent [address] [facility] [address] [place] [address] [phone]
--- OUTSIDE RECORDS SUMMARY | 2019-06-20 18:23 | XMS REPORT | Continuity of Care Document ---
:1940 External Reference #:[id number] Author Name Dmitri Gaston M.D. (transmitted by agent of provider Carito Laguna ) Address [address] [address] Care Team Providers Name Role Phone Guerrero Morgan MD - Rheumatology Care Team Information Limnology Teacher [phone] Miles Garrett MD - Pulmonary Disease Care Team Information Limnology Teacher Iveth Serrano MD - Infectious Care Team Information Limnology Teacher Disease Esmer Maldonado MD - Surgery of the Care Team Information Limnology Teacher [phone] Hand Enrique Torres MD - Orthopaedic Surgery Care Team Information Limnology Teacher of the Spine Nicola Ricardo MD - Infectious Care Team Information Limnology Teacher Disease Anabell Carrizales MD - Surgery Care Team Information Limnology Teacher Emi Kunz MD - Hematology & Care Team Information Limnology Teacher [phone] Oncology Reji Hampton MD - Cardiovascular Care Team Information Limnology Teacher [phone] Disease [facility] - Care Team Information Limnology Teacher Exercise & Sports Wilber Manuel MD - Care Team Information Limnology Teacher [phone] Neurological Surgery Marko Peters M.D. - Neurology Care Team Information Limnology Teacher [phone] Miles Burdick MD - Rheumatology Care Team Information Limnology Teacher [phone] Candace Lopez M.D. - [facility] Medicine Care Team Information Limnology Teacher Problems Active Problems Provider Date Common variable [...] Marko Peters M.D. Onset: 01/20/2018 Headache Christy Verduzco.Gui Onset: 11/24/2018 Social History Type Date Description [...] Medications SIG Qnty Indications Ordering Date Provider Macrobid 1 by mouth twice 14caps Candace Lopez MD 05/11/2019 100mg Capsules a day x 7 days Cipro 1 tab twice a 14tabs Candace Lopez MD 05/07/2019 500mg Tablets day for 7 days Amoxicillin/Clavulanat take one tablet 15tabs Dunia Cee MD 04/27/2019 e Potassium every 8 hours 500-125mg Tablets Nystatin-Triamcinolone apply twice a 15gm R21 Dunia Cee MD 04/27/2019 day in thin 081971-5.1Unit/GM-% layer Cream Valacyclovir HCL 1 tab PO [...] for Tablets 7 days Amitriptyline HCL 1-4 at bedtime 120tabs B02.29 Candace Lopez MD 01/10/2019 25mg Tablets Hydromorphone HCL one every 4 180tabs Candace Lopez MD 09/26/2018 4mg hours as needed Tablets pain Aerochamber MV use as directed 1units J40 Candace Lopez MD 09/11/2018 Misc with inhaler Ipratropium one vial via neb 540units J20.9 Candace Lopez MD 08/30/2018 [place]/Albuterol every 4-6 hours Sulfate for 0.5-2.5(3)mg/3ML wheezing/coughin [...] 1 by mouth every Ernst Brandon 03/06/2018 40081Rtal day Jacqueline Terry,FACP Capsules Tikosyn take one tablet 180caps Reji Roma Hampton, 03/02/2018 250mcg Capsules twice a day M.D. Amlodipine Besylate 1 by mouth every 90tabs I10 Candaec Lopez MD 03/02/2018 10mg day Tablets Compression Stockings please use daily as 2units Miles Burdick, 2017 needed for leg/foot M.D. Misc swelling and venous stasis changes Montelukast Sodium take 1 tablet by 90tabs Candace Lopez MD 11/18/2017 10mg mouth every day Tablets Sulfamethoxazole-Trime 1 tab daily 90tabs Nicola Brandon 09/13/2017 [facility] Jacqueline Ricardo 400-80mg Tablets Motorized Scooter use [...] Medications Cefuroxime Axetil one po bid for 10 20tabs Candace Lopez MD 04/02/2019 - 500mg days 04/26/2019 Tablets Amoxicillin one by mouth 21tabs Candace Lopez MD 03/08/2019 - 500mg three times a day 04/26/2019 Tablets for 7 days Cipro 1 tab twice a day 14tabs Candace Lopez MD 12/28/2018 - 500mg Tablets for 7 days 01/03/2019 Valacyclovir HCL 1 tab PO every 8 21tabs B02.9 Talya Alvares, 12/25/2018 - 1gm hours X 7 Days M.D. 01/01/2019 Tablets Cipro 1 tab twice a day 14tabs Candace Lopez MD 12/22/2018 - 500mg Tablets for 7 days 12/25/2018 Macrobid 1 by mouth twice 14caps Candace Lopez MD 12/22/2018 - 100mg Capsules a day x 7 days 12/29/2018 Prednisone take tapering 30tabs Candace Lopez MD 12/08/2018 - 10mg Tablets dose as directed 12/25/2018 Medications Administered in Office Medication SIG Qnty Indications Ordering Provider Date Triamcinolone (Kenalog) Betito Barry MD 07/18/2018 Injection Triamcinolone (Kenalog) Betito Barry MD 05/18/2018 Injection Triamcinolone (Kenalog) Betito Barry MD 01/19/2018 Injection Triamcinolone (Kenalog) Betito Barry MD 09/09/2017 Injection Immunizations CPT Code Status Date Vaccine Lot # [id number] Given 05/10/2018 Influenza Virus Vaccine, Quadrivalent, Split, [id number] Preservative Free 21484 Given 07/01/2017 Influenza Virus Vaccine, Quadrivalent, Split, [id number] Preservative Free 89078 Given 05/11/2016 Influenza Virus Vaccine, Quadrivalent, Split, [id number] Preservative Free 55009 Given 06/17/2015 Influenza Virus 3Yrs & Over 88996 Given 05/01/2015 Influenza Virus Vaccine, Quadrivalent, Split, [id number] Preservative Free [id number] Given 12/30/2014 Fluvirin Im 3Yrs And Older 47193 Given 06/13/2014 Pneumococcal Conjugate Vaccine 13 Valent For [id number] Intramuscular Use 99385 Given 06/13/2014 Flu Vaccine Split Virus Preservative Free For [id number] Indiv 3Yr Older 18813 Given 05/16/2013 Flu Vaccine Split Virus Preservative Free For [id number] Indiv 3Yr Older Q2037 Given 05/20/2012 Fluvirin Im 3Yrs And Older 08278 Given 02/29/2012 Zoster (Zostavax) [id number] 80353 Given 02/10/2012 Pneumonia Vaccine [id number] Q2038 Given 06/05/2011 Fluzone Vaccine [id number] 11102 Given 06/25/2010 Influenza Virus 3Yrs & Over 58687 Given 07/25/2009 Influenza Virus Vaccine, Pandemic Formulation [id number] 33151 Given 08/15/2006 Td (History By Patient) Vital [...] Result H/L Range Note CBC Auto 05/31/2019 [facility] White Blood 5.0 10^3/uL Normal 3.5-10.[address] [place] [address] [phone] Red Blood Count 3.73 10^6/uL Normal 3.70-4.87 [...] Blood Cells % 0.1 Laboratory test 05/31/2019 [facility] Lactic Acid 1.4 mmol/L Normal 0.5-2.0 1 finding [address] [place] [address] [phone] Comp Metabolic 05/31/2019 [facility] Sodium 131 mmol/L Low 135 -145 Panel [address] [place] [address] [phone] Potassium 4.1 mmol/L Normal 3.5-5.0 Chloride 98 [...] Egfr 104.8 >60 2 Laboratory test 05/31/2019 [facility] Magnesium 1.9 mg/dL Normal 1.9-2.[address] [place] [address] [phone] Troponin-I (TnI) 0.05 ng/mL Critical high <0.04 3 TSH (Thyroid Stim Horm) 0.49 mcIU/mL Normal 0.34-5.60 Urinalysis Profile 05/31/2019 [facility] Urine Color Yellow [address] [place] [address] [phone] Urine Appearance Cloudy Urine Specific Daisy 1.010 Normal 1.010-1.030 Urine pH 6.0 Normal [...] Present Abnormal Absent Urine Culture And 05/31/2019 [facility] Urine SEE RESULT [address] [address] [phone] CBC Auto Diff 05/29/2019 [facility] White Blood 4.5 10^3/uL Normal 3.5-[address] Count 0.8 [place] [address] [phone] Red Blood Count 3.54 10^6/uL Low 3.70-4.87 [...] Cells % 0.0 Comp Metabolic Panel 05/29/2019 [facility] Sodium 133 mmol/L Low 135-[address] [place], [place] [id number] [phone] Potassium 4.3 mmol/L Normal 3.5-5.0 Chloride 99 [...] Egfr 91.8 >60 6 Laboratory test 05/29/2019 [facility] Lipase 11 U/L Normal 11.0-82.[address] [place], [place] [id number] [phone] C Reactive Protein 31.18 mg/L High <8.01 Urine Culture And 05/26/2019 [facility] Urine SEE RESULT 7 , [address] [address] [phone] Urine Culture And 05/08/2019 [facility] Urine SEE RESULT [address] Culture BELOW [place], [place] [id number] [phone] Basic Metabolic 04/27/2019 [facility] Sodium 131 mmol/L Low 135-[address] [place] [address] [phone] Potassium 4.4 mmol/L Normal 3.5-5.0 Chloride 97 mmol/L Low 101-111 Co2 Carbon Dioxide 27 mmol/L Normal 22-32 Anion Gap 7 mmol/L Normal 2-11 Glucose 122 mg/dL High 70-100 Blood Urea Nitrogen 12 mg/dL Normal 6-24 Creatinine 0.55 mg/dL Normal 0.51-0.95 BUN/Creatinine Ratio 21.8 High 8-20 Calcium 8.7 mg/dL Normal 8.6-10.3 Egfr Non- 106.9 >60 Egfr 129.3 >60 10 Urine Culture And 04/25/2019 [facility] Urine Culture SEE RESULT [address] [place] [address] [phone] Urinalysis Profile 03/07/2019 [facility] Urine Color Candace [address] [place] [address] [phone] Urine Appearance Turbid Urine Specific Daisy 1.010 Normal 1.010-1.030 Urine pH 8.0 Normal [...] 1+ Abnormal Absent Urine Culture And 03/07/2019 [facility] Urine SEE RESULT [address] [place] [address] [phone] CBC Auto Diff 01/10/2019 [facility] White Blood 5.5 10^3/uL Normal 3.5- [address] Count 10.8 [place] [address] [phone] Red Blood Count 4.43 10^6/uL Normal 3.70-4.87 [...] Cells % 0.1 Comp Metabolic Panel 01/10/2019 [facility] Sodium 133 mmol/L Low 135-145 [address] [place] [address] [phone] Potassium 3.7 mmol/L Normal 3.5-5.0 Chloride 98 [...] 159.0 >60 14 Comp Metabolic Panel 01/03/2019 [facility] Sodium 132 mmol/L Low 135-[address] [place] [address] [phone] Potassium 4.3 mmol/L Normal 3.5-5.0 Chloride 100 [...] Egfr 159.0 >60 15 Laboratory test 01/03/2019 [facility] Magnesium 1.9 mg/dL Normal 1.9-2.[address] [place] [address] [phone] CBC Auto Diff 01/03/2019 [facility] White Blood 5.1 Normal 3.5 -10.[address] Count 10^3/[place] [address] [phone] Red Blood Count 4.64 10^6/uL Normal 3.70-4.87 [...] Blood Cells % 0.0 Urinalysis Profile 01/03/2019 [facility] Urine Color Yellow [address] [place] [address] [phone] Urine Appearance Cloudy Urine Specific Daisy 1.015 Normal 1.010-1.030 Urine pH 6.0 Normal 5-9 Urine Urobilinogen Negative Negative Urine Ketones Negative Negative Urine Protein Negative Negative Urine Leukocytes Negative Negative Urine Blood Negative Negative Urine Nitrite Negative Negative Urine Bilirubin Negative Negative Urine Glucose Negative Negative Urine Culture And 12/22/2018 [facility] Urine Culture SEE RESULT [address] [place] [address] [phone] Ua Routine 12/22/2018 [employer] [facility] Ua Specific 1.000 Daisy Ua PH 7 Ua Color YELLOW Ua [...] (or dialysis) 3 Result TnIDx:0.05 Called to [id number] at: 15:18:27 by:[id number] Read back by: [id number] Troponin-I testing on Plasma Separator Tubes (PST) has a known false positive rate of 0.20-0.40%. All positive troponins reflex immediately to secondary confirmatory testing. Using the [employer] 800 Access Immunoassay systems, the 99th percentile upper reference limit was demonstrated to be < 0.03 ng/mL. 4 *Ascorbic acid is present which may interfere with detection of blood. 5 SEE RESULT BELOW Name: DANA GUSMAN : [address]: Milana Real DO Acct: [id number] Unit: [id number] AGE: 78 Location: [place] [address] Re06/01/19 SEX: F Status: ADM IN SPEC: [id number] MARIA DE JESUS: 05/31/[address]: Alex Ashton MD REQ: [id number] RECD: 05/31/19 STATUS: RADHA CRUZ DR: Candace Lopez MD _ SOURCE: URINE SPDESC: ORDERED: Urine Culture Procedure Result Reported Site Urine Culture Final 06/01/19- 1224 ML No Growth (<1,000 CFU/mL) * - [facility] . END OF REPORT DEPARTMENT OF PATHOLOGY, [address] [place] [address] Naldo Palomo M.D. Director [facility] # [id number] 6 Because ethnic data is not always [...] [address]: Candace Lopez MD Acct: [id number] Unit: [id number] AGE: 78 Location: [facility] Re05/26/19 SEX: F Status: REG REF SPEC: [id number] MARIA DE JESUS: 05/26/19 [facility] DR: Candace Lopez MD REQ: [id number] RECD: 05/26/19 STATUS: COMP _ SOURCE: URINE SPDESC: ORDERED: Urine Culture Urine Source: Random Procedure Result Reported Site Urine Culture Final 05/28/19- 0735 ML Organism 1 ESCHERICHIA COLI [place] Count >100,000 (Many) CFU/ML 1. ESCHERICHIA COLI [...] . END OF REPORT DEPARTMENT OF PATHOLOGY, [address] [place] [address] Naldo Palomo M.D. Director [facility] # [id number] 9 SEE RESULT BELOW Name: DANA GUSMAN : [address]: Candace Lopez MD Acct: [id number] Unit: [id number] AGE: 78 Location: [facility] Re05/08/19 SEX: F Status: REG REF SPEC: [id number] MARIA DE JESUS: 05/08/19-[address]: Candace Lopez MD REQ: [id number] RECD: 05/08/19 STATUS: COMP _ SOURCE: URINE SPDESC: ORDERED: Urine Culture Procedure Result Reported Site Urine Culture Final 05/10/19- 0755 ML Organism 1 ESCHERICHIA COLI [place] Count >100,000 (Many) CFU/ML 1. ESCHERICHIA COLI [...] . END OF REPORT DEPARTMENT OF PATHOLOGY, [address] [place] [address] Naldo Palomo M.D. Director [facility] # [id number] 10 Because ethnic data is not always [...] [address]: Candace Lopez MD Acct: [id number] Unit: [id number] AGE: 78 Location: [facility] Re04/25/19 SEX: F Status: REG REF SPEC: [id number] MARIA DE JESUS: 04/25/[address]: Candace Lopez MD REQ: [id number] RECD: 04/25/19100 STATUS: COMP _ SOURCE: URINE SPDESC: ORDERED: Urine Culture Urine Source: Random Procedure Result Reported Site Urine Culture Final 04/27/19- 0900 ML Organism 1 ESCHERICHIA COLI [place] Count >100,000 (Many) CFU/ML 1. ESCHERICHIA COLI [...] . END OF REPORT DEPARTMENT OF PATHOLOGY, [address] [place] [address] Naldo Palomo M.D. Director [facility] # [id number] 12 treated with appropriate abx 13 SEE RESULT BELOW Name: DANA GUSMAN : [address]: Candace Lopez MD Acct: [id number] Unit: [id number] AGE: 78 Location: [facility] Re03/07/19 SEX: F Status: REG REF SPEC: [id number] MARIA DE JESUS: 03/07/19-[address]: Candace Lopez MD REQ: [id number] RECD: 03/07/19 STATUS: COMP _ SOURCE: URINE SPDESC: ORDERED: Urine Culture Procedure Result Reported Site Urine Culture Final 03/09/19- 0921 ML Organism 1 ESCHERICHIA COLI [place] Count >100,000 (Many) CFU/ML 1. ESCHERICHIA COLI [...] . END OF REPORT DEPARTMENT OF PATHOLOGY, [address] [place] [address] Naldo Palomo M.D. Director [facility] # [id number] 14 Because ethnic data is not always [...] [address]: Candace Lopez MD Acct: [id number] Unit: [id number] AGE: 78 Location: [facility] Re12/22/18 SEX: F Status: REG REF SPEC: [id number] MARIA DE JESUS: 12/22/18-[address]: Candace Lopez MD REQ: [id number] RECD: 12/22/18 STATUS: COMP _ SOURCE: URINE [facility]: ORDERED: Urine Culture COMMENTS: [id number] Urine Source: Random Procedure Result Reported Site Urine Culture Final 12/25/18- 0832 ML Organism 1 ESCHERICHIA COLI [place] Count >100,000 (Many) CFU/ML 1. ESCHERICHIA COLI [...] . END OF REPORT DEPARTMENT OF PATHOLOGY, [address] [place] [address] Naldo Palomo M.D. Director [facility] # [id number] Procedures Date Code Description Status 05/23/2019 39117 ECHO Transthoracic, Real-Time 2D With Doppler And Completed Color Flow 05/23/2019 72200 ECHO Transthoracic, Real-Time 2D With Doppler And Completed Color Flow 01/29/2019 931876009 Diabetic Retinal Eye Exam Completed 04/21/2017 17963338 Mammogram Completed 02/21/2017 933731761 Diabetic Retinal Eye Exam Completed 04/20/2016 18248858 Mammogram Completed 04/23/2015 868540895 Bone Mineral Density Test Completed 04/23/2015 38453194 Mammogram Completed 04/09/2015 31166066 Mammogram Completed 12/28/2013 69381040 Mammogram Completed 03/27/2012 74921376 Mammogram Completed 02/23/2012 006601847 Bone Mineral Density Test Completed 02/23/2012 90705042 Mammogram Completed 03/21/2008 21466131 Mammogram Completed 08/15/2002 81740870 Colonoscopy Completed Medical Devices Description No Information Available Encounters Type Date Location Provider Dx Diagnosis [facility] B37.2 Candidiasis of skin 3:40p Ana Ricardo M.D. 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 quadrant pain B02.9 Zoster without complications Office Visit 12/25/2018 11:30a [facility] Internal Talyadalton Alvares, N30.00 [facility] hemat[facility] B02.9 Zoster without complications Assessments Date Code Description Provider 05/23/2019 I10 Essential (primary) hypertension Reji Hampton M.D. 05/23/2019 I10 Essential (primary) hypertension Traveling ECHO 1 04/30/2019 B37.2 Candidiasis of skin and nail Nicola Ricardo M.D. 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 04/04/2019 M81.8 Other osteoporosis without current Miles Burdick M.D. pathological fracture 04/04/2019 Z79.899 Other terminal computer operator (current) drug therapy Miles Burdick M.D. 04/04/2019 M19.049 Primary osteoarthritis, unspecified hand Miles Burdick M.D. 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 03/09/2019 R51 Headache Marvin Odell, N.P. 03/09/2019 [...] Nurse Visit A Plan of Treatment Future Appointment(s):06/20/2019 4:00 pm - Reji Hampton M.D. at [place] [facility]01/03/2020 1:00 pm - Miles Burdick M.D. at [facility]06/15/2019 1:45 pm - Marko Peters M.D. at [place] [facility]04/30/2019 - Nicola Ricardo M.D.B37.2 Candidiasis of skin and nailComments:continue topical nystatin; call if it returns after completing it; can stop antiviral , make sure todry as able and may keep dry cloth between skin after bathing Functional Status Functional Condition Comment Date Status Standard cane is used to ambulate Active Mental Status Description No Information Available Referrals Refer to Dr Reason for Referral Status Appt Date Kunal De Guzman MD evaluation of wheelchair bound patient with Sent 2018 chronic constipation and recurrent UTIs as well as incontinence. [address] [place] [address] [place] [address] [phone] Other Physician Practices REF: DR. LLOYD FEL[facility] PHONE: [phone] FAX: [phone] Param Tavarez MD pls evaluate pt with severe chronic pain who is Sent interested in medical cannabis [address] [place] [address] [phone] Chris Childs MD Sent [address] [facility] [address] [place] [address] [phone]
--- OUTSIDE RECORDS SUMMARY | 2019-06-20 18:23 | XMS REPORT | Continuity of Care Document ---
:1940 External Reference #:[id number] Author Name Dmitri Gaston M.D. (transmitted by agent of provider Carito Laguna ) Address [address] [address] Care Team Providers Name Role Phone Guerrero Morgan MD - Rheumatology Care Team Information Crop Roller [phone] Miles Garrett MD - Pulmonary Disease Care Team Information Crop Roller Iveth Serrano MD - Infectious Care Team Information [place] Disease Esmer Maldonado MD - Surgery of the Care Team Information [place] Roller Hand Enrique Torres MD - Orthopaedic Surgery Care Team Information [place] Roller of the Spine Nicola Ricardo MD - Infectious Care Team Information Crop Roller [phone] Disease Anabell Carrizales MD - Surgery Care Team Information Crop Roller Emi Kunz MD - Hematology & Care Team Information Crop Roller Oncology Reji Hampton MD - Cardiovascular Care Team Information Crop Roller [phone] Disease [facility] - Care Team Information [employer]ler Exercise & Sports Wilber Manuel MD - Care Team Information [place] Roller [phone] Neurological Surgery Marko Peters M.D. - Neurology Care Team Information Crop Roller [phone] Miles Burdick MD - Rheumatology Care Team Information Crop Roller Candace Lopez M.D. - [facility] Medicine Care Team Information Crop Roller [phone] Problems Active Problems Provider Date Common variable agammaglobulinemia Ernst Terry M.D.,FACP Onset: 2015 Simple chronic bronchitis Marleny Norris MD Onset: 12/30/2014 Asthma Ernst Terry M.D.,FACP Onset: 06/19/2018 Note: on PFTs 2014 Psoriasis with arthropathy Ernst Terry M.D.,FACP Onset: 08/03/2007 Paroxysmal atrial fibrillation Ernst Terry M.D.,FACP Onset: 06/03/2016 Aortic valve stenosis Ernst eTrry M.D.,FACP Onset: 06/30/2015 Note: moderate-severe Disorder characterized [...] MD Onset: 10/04/2017 Syringomyelia and syringobulbia Marko Pteers M.D. Onset: 01/20/2018 Arthritis mutilans Marko Peters [...] Dunia Cee MD 04/27/2019 day in thin 079860-9.1Unit/GM-% layer Cream Valacyclovir HCL 1 tab PO [...] neb 540units J20.9 Candace Lopez MD 08/30/2018 [place]/Albuterol every 4-6 hours Sulfate for 0.5-2.5(3)mg/3ML wheezing/coughin [...] 1 by mouth every Ernst Brandon 03/06/2018 54153Pfqo day Jacqueline Terry,FACP Capsules Tikosyn take one [...] 1 tab daily 90tabs Nicola Brandon 09/13/2017 [facility] Jacqueline Ricardo 400-80mg Tablets Motorized Scooter [...] CPT Code Status Date Vaccine Lot # [id number] Given 05/10/2018 Influenza Virus Vaccine, Quadrivalent, Split, [id number] Preservative Free 85781 Given 07/01/2017 Influenza Virus Vaccine, Quadrivalent, Split, [id number] Preservative Free 34798 Given 05/11/2016 Influenza Virus Vaccine, Quadrivalent, Split, [id number] Preservative Free 81434 Given 06/17/2015 Influenza Virus 3Yrs & Over 17297 Given 05/01/2015 Influenza Virus Vaccine, Quadrivalent, Split, [id number] Preservative Free [id number] Given 12/30/2014 Fluvirin Im 3Yrs And Older 45816 Given 06/13/2014 Pneumococcal Conjugate Vaccine 13 Valent For [id number] Intramuscular Use 45135 Given 06/13/2014 Flu Vaccine Split Virus Preservative Free For [id number] Indiv 3Yr Older 97664 Given 05/16/2013 Flu Vaccine Split Virus Preservative Free For [id number] Indiv 3Yr Older Q2037 Given 05/20/2012 Fluvirin Im 3Yrs And Older 91338 Given 02/29/2012 Zoster (Zostavax) [id number] 36542 Given 02/10/2012 Pneumonia Vaccine [id number] Q2038 Given 06/05/2011 Fluzone Vaccine [id number] 30762 Given 06/25/2010 Influenza Virus 3Yrs & Over 72830 Given 07/25/2009 Influenza Virus Vaccine, Pandemic Formulation [id number] 51606 Given 08/15/2006 Td (History By Patient) Vital [...] Result H/L Range Note CBC Auto 05/31/2019 [facility] White Blood 5.0 10^3/uL Normal 3.5-10.[address] [place] [address] [phone] Red Blood Count 3.73 10^6/uL Normal 3.70-4.87 [...] Blood Cells % 0.1 Laboratory test 05/31/2019 [facility] Lactic Acid 1.4 mmol/L Normal 0.5-2.0 1 finding [address] [place] [address] [phone] Comp Metabolic 05/31/2019 [facility] Sodium 131 mmol/L Low 135 -145 Panel [address] [place] [address] [phone] Potassium 4.1 mmol/L Normal 3.5-5.0 Chloride 98 [...] Egfr 104.8 >60 2 Laboratory test 05/31/2019 [facility] Magnesium 1.9 mg/dL Normal 1.9-2.[address] [place] [address] [phone] Troponin-I (TnI) 0.05 ng/mL Critical high <0.04 3 TSH (Thyroid Stim Horm) 0.49 mcIU/mL Normal 0.34-5.60 Urinalysis Profile 05/31/2019 [facility] Urine Color Yellow [address] [place] [address] [phone] Urine Appearance Cloudy Urine Specific Whitman 1.010 Normal 1.010-1.030 Urine pH 6.0 Normal [...] Present Abnormal Absent Urine Culture And 05/31/2019 [facility] Urine SEE RESULT [address] [place] [address] [phone] CBC Auto Diff 05/29/2019 [facility] White Blood 4.5 10^3/uL Normal 3.5-[address] Count 0.8 [place] [address] [phone] Red Blood Count 3.54 10^6/uL Low 3.70-4.87 [...] Cells % 0.0 Comp Metabolic Panel 05/29/2019 [facility] Sodium 133 mmol/L Low 135-[address] [place], [place] [address] [phone] Potassium 4.3 mmol/L Normal 3.5-5.0 Chloride 99 [...] Egfr 91.8 >60 6 Laboratory test 05/29/2019 [facility] Lipase 11 U/L Normal 11.0-82.[address] [place], [place] [id number] [phone] C Reactive Protein 31.18 mg/L High <8.01 Urine Culture And 05/26/2019 [facility] Urine SEE RESULT 7 , [address] [place] [address] [phone] Urine Culture And 05/08/2019 [facility] Urine SEE RESULT [address] Culture BELOW [place], [place] [address] [phone] Basic Metabolic 04/27/2019 [facility] Sodium 131 mmol/L Low 135-[address] [place] [address] [phone] Potassium 4.4 mmol/L Normal 3.5-5.0 Chloride 97 mmol/L Low 101-111 Co2 Carbon Dioxide 27 mmol/L Normal 22-32 Anion Gap 7 mmol/L Normal 2-11 Glucose 122 mg/dL High 70-100 Blood Urea Nitrogen 12 mg/dL Normal 6-24 Creatinine 0.55 mg/dL Normal 0.51-0.95 BUN/Creatinine Ratio 21.8 High 8-20 Calcium 8.7 mg/dL Normal 8.6-10.3 Egfr Non- 106.9 >60 Egfr 129.3 >60 10 Urine Culture And 04/25/2019 [facility] Urine Culture SEE RESULT [address] [place] [address] [phone] Urinalysis Profile 03/07/2019 [facility] Urine Color Candace [address] [place] [address] [phone] Urine Appearance Turbid Urine Specific Whitman 1.010 Normal 1.010-1.030 Urine pH 8.0 Normal [...] 1+ Abnormal Absent Urine Culture And 03/07/2019 [facility] Urine SEE RESULT [address] [place] [address] [phone] CBC Auto Diff 01/10/2019 [facility] White Blood 5.5 10^3/uL Normal 3.5- [address] Count 10.8 [place] [address] [phone] Red Blood Count 4.43 10^6/uL Normal 3.70-4.87 [...] Cells % 0.1 Comp Metabolic Panel 01/10/2019 [facility] Sodium 133 mmol/L Low 135-145 [address] [place] [address] [phone] Potassium 3.7 mmol/L Normal 3.5-5.0 Chloride 98 [...] 159.0 >60 14 Comp Metabolic Panel 01/03/2019 [facility] Sodium 132 mmol/L Low 135-[address] [place] [address] [phone] Potassium 4.3 mmol/L Normal 3.5-5.0 Chloride 100 [...] Egfr 159.0 >60 15 Laboratory test 01/03/2019 [facility] Magnesium 1.9 mg/dL Normal 1.9-2.[address] [place] [address] [phone] CBC Auto Diff 01/03/2019 [facility] White Blood 5.1 Normal 3.5 -10.[address] Count 10^3/[place] [address] [phone] Red Blood Count 4.64 10^6/uL Normal 3.70-4.87 [...] Blood Cells % 0.0 Urinalysis Profile 01/03/2019 [facility] Urine Color Yellow [address] [place] [address] [phone] Urine Appearance Cloudy Urine Specific Whitman 1.015 Normal 1.010-1.030 Urine pH 6.0 Normal 5-9 Urine Urobilinogen Negative Negative Urine Ketones Negative Negative Urine Protein Negative Negative Urine Leukocytes Negative Negative Urine Blood Negative Negative Urine Nitrite Negative Negative Urine Bilirubin Negative Negative Urine Glucose Negative Negative Urine Culture And 12/22/2018 [facility] Urine Culture SEE RESULT [address] [place] [address] [phone] Ua Routine 12/22/2018 [facility] Ua Specific 1.000 [place]man Ua PH 7 Ua Color YELLOW Ua Appera CLOUDY Ua WBC LARGE Ua Protein TRACE Ua Glucose NORM Ua Ketones NEG Ua Bilirubin NEG Ua Urobilinogen NEG Ua Nitrite + Ua Occult Blood TRACE 1 [facility] Severe Sepsis and Septic Shock Management Bundle [...] (or dialysis) 3 Result TnIDx:0.05 Called to [id number] at: 15:18:27 by:[id number] Read back by: [id number] Troponin-I testing on Plasma Separator Tubes (PST) has a known false positive rate of 0.20-0.40%. All positive troponins reflex immediately to secondary confirmatory testing. Using the [employer] 800 Access Immunoassay systems, the 99th percentile upper reference limit was demonstrated to be < 0.03 ng/mL. 4 *Ascorbic acid is present which may interfere with detection of blood. 5 SEE RESULT BELOW Name: DANA GUSMAN : [address]: Milana Real DO Acct: [id number] Unit: [id number] AGE: 78 Location: [place] [address] Re06/01/19 SEX: F Status: ADM IN SPEC: [id number] MARIA DE JESUS: 05/31/[address]: Alex Ashton MD REQ: [id number] RECD: 05/31/19 STATUS: RADHA CRUZ DR: Candace Lopez MD _ SOURCE: URINE SPDESC: ORDERED: Urine Culture Procedure Result Reported Site Urine Culture Final 06/01/19- 1224 ML No Growth (<1,000 CFU/mL) * - [facility] . END OF REPORT DEPARTMENT OF PATHOLOGY, [address] [place] [address] Naldo Palomo M.D. Director [facility] # [id number] 6 Because ethnic data is not always [...] [address]: Candace Lopez MD Acct: [id number] Unit: [id number] AGE: 78 Location: [facility] Re05/26/19 SEX: F Status: REG REF SPEC: [id number] MARIA DE JESUS: 05/26/19 [facility] DR: Candace Lopez MD REQ: [id number] RECD: 05/26/19 STATUS: COMP _ SOURCE: URINE SPDESC: ORDERED: Urine Culture Urine Source: Random Procedure Result Reported Site Urine Culture Final 05/28/19- 0735 ML Organism 1 ESCHERICHIA COLI [place] Count >100,000 (Many) CFU/ML 1. ESCHERICHIA COLI [...] . END OF REPORT DEPARTMENT OF PATHOLOGY, [address] [place] [address] Naldo Palomo M.D. Director [facility] # [id number] 9 SEE RESULT BELOW Name: DANA GUSMAN : [address]: Candace Lopez MD Acct: [id number] Unit: [id number] AGE: 78 Location: [facility] Re05/08/19 SEX: F Status: REG REF SPEC: [id number] MARIA DE JESUS: 05/08/19-[address]: Candace Lopez MD REQ: [id number] RECD: 05/08/19 STATUS: COMP _ SOURCE: URINE SPDESC: ORDERED: Urine Culture Procedure Result Reported Site Urine Culture Final 05/10/19- 0755 ML Organism 1 ESCHERICHIA COLI [place] Count >100,000 (Many) CFU/ML 1. ESCHERICHIA COLI [...] . END OF REPORT DEPARTMENT OF PATHOLOGY, [address] [place] [address] Naldo Palomo M.D. Director [facility] # [id number] 10 Because ethnic data is not always [...] [address]: Candace Lopez MD Acct: [id number] Unit: [id number] AGE: 78 Location: [facility] Re04/25/19 SEX: F Status: REG REF SPEC: [id number] MARIA DE JESUS: 04/25/[address]: Candace Lopez MD REQ: [id number] RECD: 04/25/19100 STATUS: COMP _ SOURCE: URINE SPDESC: ORDERED: Urine Culture Urine Source: Random Procedure Result Reported Site Urine Culture Final 04/27/19- 0900 ML Organism 1 ESCHERICHIA COLI [place] Count >100,000 (Many) CFU/ML 1. ESCHERICHIA COLI [...] . END OF REPORT DEPARTMENT OF PATHOLOGY, [address] [place] [address] Naldo Palomo M.D. Director [facility] # [id number] 12 treated with appropriate abx 13 SEE RESULT BELOW Name: DANA GUSMAN : [address]: Candace Lopez MD Acct: [id number] Unit: [id number] AGE: 78 Location: [facility] Re03/07/19 SEX: F Status: REG REF SPEC: [id number] MARIA DE JESUS: 03/07/19-[address]: Candace Lopez MD REQ: [id number] RECD: 03/07/19 STATUS: COMP _ SOURCE: URINE SPDESC: ORDERED: Urine Culture Procedure Result Reported Site Urine Culture Final 03/09/19- 0921 ML Organism 1 ESCHERICHIA COLI [place] Count >100,000 (Many) CFU/ML 1. ESCHERICHIA COLI [...] . END OF REPORT DEPARTMENT OF PATHOLOGY, [address] [place] [address] Naldo Palomo M.D. Director [facility] # [id number] 14 Because ethnic data is not always [...] [address]: Candace Lopez MD Acct: [id number] Unit: [id number] AGE: 78 Location: [facility] Re12/22/18 SEX: F Status: REG REF SPEC: [id number] MARIA DE JESUS: 12/22/18-[address]: Candace Lopez MD REQ: [id number] RECD: 12/22/18 STATUS: COMP _ SOURCE: URINE [facility]: ORDERED: Urine Culture COMMENTS: [id number] Urine Source: Random Procedure Result Reported Site Urine Culture Final 12/25/18- 0832 ML Organism 1 ESCHERICHIA COLI [place] Count >100,000 (Many) CFU/ML 1. ESCHERICHIA COLI [...] . END OF REPORT DEPARTMENT OF PATHOLOGY, [address] [place] [address] Naldo Palomo M.D. Director [facility] # [id number] Procedures Date Code Description Status 05/23/2019 41838 ECHO Transthoracic, Real-Time 2D With Doppler And Completed Color Flow 05/23/2019 44979 ECHO Transthoracic, Real-Time 2D With Doppler And Completed Color Flow 01/29/2019 511731373 Diabetic Retinal Eye Exam Completed 04/21/2017 09383800 Mammogram Completed 02/21/2017 296021449 Diabetic Retinal Eye Exam Completed 04/20/2016 33944195 Mammogram Completed 04/23/2015 166802825 Bone Mineral Density Test Completed 04/23/2015 15815071 Mammogram Completed 04/09/2015 97653860 Mammogram Completed 12/28/2013 38884641 Mammogram Completed 03/27/2012 71303468 Mammogram Completed 02/23/2012 296662508 Bone Mineral Density Test Completed 02/23/2012 69058364 Mammogram Completed 03/21/2008 54843028 Mammogram Completed 08/15/2002 52929948 Colonoscopy Completed Medical Devices Description No Information Available Encounters Type Date Location Provider Dx Diagnosis [facility] Candidiasis of skin 3:40p Ana Ricardo M.D. 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 quadrant pain B02.9 Zoster without complications Office Visit 12/25/2018 11:30a [facility] Internal Talyadalton Alvares, N30.00 [facility] without hematuria B02.9 Zoster without complications [...] Burdick M.D. pathological fracture 04/04/2019 Z79.899 Other intermediate manager (current) drug therapy Miles Burdick M.D. 04/04/2019 [...] 4:00 pm - Reji Hampton M.D. at [facility]01/03/2020 1:00 pm - Miles Burdick M.D. at [facility]06/15/2019 1:45 pm - Marko Peters M.D. at [facility]04/30/2019 - Nicola Ricardo M.D.B37.2 Candidiasis of skin [...] recurrent UTIs as well as incontinence. [address] [place] [address] [place] [address] [phone] Other Physician Practices REF: DR. LLOYD FELIPE [facility] PHONE: [phone] FAX: [phone] Param Tavarez MD pls evaluate pt with severe chronic pain who is Sent interested in medical cannabis [address] [place] [address] [phone] Chris Childs MD Sent [address] [facility] [address] [place] [address] [phone]
--- OUTSIDE RECORDS SUMMARY | 2019-06-20 18:23 | XMS REPORT | Continuity of Care Document ---
:1940 External Reference #:[id number] Author Name Magali Laurent MD (transmitted by agent of provider Nai Person) Address [address] , [place] [address] Care Team Providers Name Role Phone Guerrero Morgan MD - Rheumatology Care Team Information Chief Diversity Officer [phone] Miles Garrett MD - Pulmonary Disease Care Team Information Chief Diversity Officer Iveth Serrano MD - Infectious Care Team Information Chief Diversity Officer Disease Esmer Maldonado MD - Surgery of the Care Team Information Chief Diversity Officer Hand Enrique Torres MD - Orthopaedic Surgery Care Team Information Chief Diversity Officer of the Spine Nicola Ricardo MD - Infectious Care Team Information Chief Diversity Officer [phone] Disease Anabell Carrizales MD - Surgery Care Team Information Chief Diversity Officer [phone] Emi Kunz MD - Hematology & Care Team Information Chief Diversity Officer [phone] Oncology Reji Hampton MD - Cardiovascular Care Team Information Chief Diversity Officer Disease [facility] - Care Team Information Chief Diversity Officer [phone] Exercise & Sports Wilber Manuel MD - Care Team Information Chief Diversity Officer [phone] Neurological Surgery Marko Peters M.D. - Neurology Care Team Information Chief Diversity Officer Miles Burdick MD - Rheumatology Care Team Information Chief Diversity Officer Candace Lopez M.D. - Family Medicine Care Team Information Chief Diversity Officer [phone] Problems Active Problems Provider Date Common variable agammaglobulinemia Ernst Terry M.D.,FACP Onset: 2015 Simple chronic bronchitis Marleny Norirs MD Onset: 12/30/2014 Asthma Ernst Terry M.D.,FACP [...] Indications Ordering Date Provider Lidoderm 1 patch topically 30units B02.23 Marvin 03/09/2019 5% Patches on for 12 hrs Jose R, N.P. than off for 12 hours hours to [...] neb 540units J20.9 Candace Lopez MD 08/30/2018 [place]/Albuterol every 4-6 hours Sulfate for wheezing/coughing 0.5-2.5(3)mg/3ML (patient needs 3 Solution month supply) J41.0 Mastectomy Bra use daily as 2units C50.911 Candace Lopez MD 08/02/2018 directed Proair Respiclick 2 puffs four times 1units J41.0 Candace Lopez MD 2017 a day as needed 108(90Base) mcg/Act Aerosol Telmisartan take 1 tablet by 90tabs Candace Lopez MD 06/02/2018 40mg Tablets mouth nightly Vitamin A 1 by mouth every Ernst Terry, 03/06/2018 61704Smko day M.DDavid,FACP Capsules Amlodipine Besylate 1 by mouth every [...] use as directed G89.4 Ernst Terry, 03/25/2017 M.DDavid,FACP I67.83 Plaquenil take 2 tablets by 180tabs [...] MD 04/27/2019 - day in thin 06/13/2019 919975-8.1Unit/GM-% layer Cream Valacyclovir HCL 1 tab PO [...] HCL 1 tab PO every 21tabs B02.9 Talyalorri Alvares, 12/25/2018 - 1gm 8 hours X [...] CPT Code Status Date Vaccine Lot # [id number] Given 05/10/2018 Influenza Virus Vaccine, Quadrivalent, Split, [id number] Preservative Free [id number] Given 07/01/2017 Influenza Virus Vaccine, Quadrivalent, Split, [id number] Preservative Free 07095 Given 05/11/2016 Influenza Virus Vaccine, Quadrivalent, Split, [id number] Preservative Free 01300 Given 06/17/2015 Influenza Virus 3Yrs & Over 31124 Given 05/01/2015 Influenza Virus Vaccine, Quadrivalent, Split, [id number] Preservative Free [id number] Given 12/30/2014 Fluvirin Im 3Yrs And Older 96902 Given 06/13/2014 Pneumococcal Conjugate Vaccine 13 Valent For [id number] Intramuscular Use 78721 Given 06/13/2014 Flu Vaccine Split Virus Preservative Free For [id number] Indiv 3Yr Older 52359 Given 05/16/2013 Flu Vaccine Split Virus Preservative Free For [id number] Indiv 3Yr Older Q2037 Given 05/20/2012 Fluvirin Im 3Yrs And Older 72668 Given 02/29/2012 Zoster (Zostavax) [id number] 68816 Given 02/10/2012 Pneumonia Vaccine [id number] Q2038 Given 06/05/2011 Fluzone Vaccine [id number] 51304 Given 06/25/2010 Influenza Virus 3Yrs & Over 29098 Given 07/25/2009 Influenza Virus Vaccine, Pandemic Formulation [id number] 05453 Given 08/15/2006 Td (History By Patient) Vital [...] Result H/L Range Note CBC Auto 05/31/2019 [facility] White Blood 5.0 10^3/uL Normal 3.5-10.[address] [place], [place] [id number] [phone] Red Blood Count 3.73 10^6/uL Normal 3.70-4.87 [...] Blood Cells % 0.1 Laboratory test 05/31/2019 [facility] Lactic Acid 1.4 mmol/L Normal 0.5-2.0 [address] [place] [address] [phone] Comp Metabolic 05/31/2019 [facility] Sodium 131 mmol/L Low 135 -[address] [place] [address] [phone] Potassium 4.1 mmol/L Normal 3.5-5.0 Chloride 98 [...] Egfr 104.8 >60 2 Laboratory test 05/31/2019 [facility] Magnesium 1.9 mg/dL Normal 1.9-2.[address] [place] [address] [phone] Troponin-I (TnI) 0.05 ng/mL Critical high <0.04 3 TSH (Thyroid Stim Horm) 0.49 mcIU/mL Normal 0.34-5.60 Urinalysis Profile 05/31/2019 [facility] Urine Color Yellow [address] [place] [address] [phone] Urine Appearance Cloudy Urine Specific Logan 1.010 Normal 1.010-1.030 Urine pH 6.0 Normal [...] Present Abnormal Absent Urine Culture And 05/31/2019 [facility] Urine SEE RESULT [address] [place] [address] [phone] CBC Auto Diff 05/29/2019 [facility] White Blood 4.5 10^3/uL Normal 3.5-[address] Count 0.8 [place] [address] [phone] Red Blood Count 3.54 10^6/uL Low 3.70-4.87 [...] Cells % 0.0 Comp Metabolic Panel 05/29/2019 [facility] Sodium 133 mmol/L Low 135-[address] [place] [address] [phone] Potassium 4.3 mmol/L Normal 3.5-5.0 Chloride 99 [...] Egfr 91.8 >60 6 Laboratory test 05/29/2019 [facility] Lipase 11 U/L Normal 11.0-82.[address] [place] [address] [phone] C Reactive Protein 31.18 mg/L High <8.01 Urine Culture And 05/26/2019 [facility] Urine SEE RESULT 7 , [address] [place] [place] [address] [phone] Urine Culture And 05/08/2019 [facility] Urine SEE RESULT [address] [place] [place] [address] [phone] Basic Metabolic 04/27/2019 [facility] Sodium 131 mmol/L Low 135-[address] [place] [address] [phone] Potassium 4.4 mmol/L Normal 3.5-5.0 Chloride 97 mmol/L Low 101-111 Co2 Carbon Dioxide 27 mmol/L Normal 22-32 Anion Gap 7 mmol/L Normal 2-11 Glucose 122 mg/dL High 70-100 Blood Urea Nitrogen 12 mg/dL Normal 6-24 Creatinine 0.55 mg/dL Normal 0.51-0.95 BUN/Creatinine Ratio 21.8 High 8-20 Calcium 8.7 mg/dL Normal 8.6-10.3 Egfr Non- 106.9 >60 Egfr 129.3 >60 10 Urine Culture And 04/25/2019 [facility] Urine Culture SEE RESULT [address] [place] [address] [phone] Urinalysis Profile 03/07/2019 [facility] Urine Color Candace [address] [place] [address] [phone] Urine Appearance Turbid Urine Specific Logan 1.010 Normal 1.010-1.030 Urine pH 8.0 Normal [...] 1+ Abnormal Absent Urine Culture And 03/07/2019 [facility] Urine SEE RESULT [address] [place] [place] [address] [phone] CBC Auto Diff 01/10/2019 [facility] White Blood 5.5 10^3/uL Normal 3.5- [address] Count 10.8 [place] [address] [phone] Red Blood Count 4.43 10^6/uL Normal 3.70-4.87 [...] Cells % 0.1 Comp Metabolic Panel 01/10/2019 [facility] Sodium 133 mmol/L Low 135-145 [address] [place] [address] [phone] Potassium 3.7 mmol/L Normal 3.5-5.0 Chloride 98 [...] 159.0 >60 14 Comp Metabolic Panel 01/03/2019 [facility] Sodium 132 mmol/L Low 135-145 [address] [place] [address] [phone] Potassium 4.3 mmol/L Normal 3.5-5.0 Chloride 100 [...] Egfr 159.0 >60 15 Laboratory test 01/03/2019 [facility] Magnesium 1.9 mg/dL Normal 1.9-2.[address] [place] [address] [phone] CBC Auto Diff 01/03/2019 [facility] White Blood 5.1 Normal 3.5 -10.[address] Count 10^3/[place] [address] [phone] Red Blood Count 4.64 10^6/uL Normal 3.70-4.87 [...] Blood Cells % 0.0 Urinalysis Profile 01/03/2019 [facility] Urine Color Yellow [address] [place] [address] [phone] Urine Appearance Cloudy Urine Specific Logan 1.015 Normal 1.010-1.030 Urine pH 6.0 Normal 5-9 Urine Urobilinogen Negative Negative Urine Ketones Negative Negative Urine Protein Negative Negative Urine Leukocytes Negative Negative Urine Blood Negative Negative Urine Nitrite Negative Negative Urine Bilirubin Negative Negative Urine Glucose Negative Negative Urine Culture And 12/22/2018 [facility] Urine Culture SEE RESULT [address] [place] [address] [phone] Ua Routine 12/22/2018 [employer] [employer] [facility] Ua Specific 1.000 Logan Ua PH 7 Ua Color YELLOW Ua Appera CLOUDY Ua WBC LARGE Ua Protein TRACE Ua Glucose NORM Ua Ketones NEG Ua Bilirubin NEG Ua Urobilinogen NEG Ua Nitrite + Ua Occult Blood TRACE 1 [facility] Severe Sepsis and Septic Shock Management [...] (or dialysis) 3 Result TnIDx:0.05 Called to [id number] at: 15:18:27 by:[id number] Read back by: [id number] Troponin-I testing on Plasma Separator Tubes (PST) has a known false positive rate of 0.20-0.40%. All positive troponins reflex immediately to secondary confirmatory testing. Using the [employer] Access Immunoassay systems, the 99th percentile upper reference limit was demonstrated to be < 0.03 ng/mL. 4 *Ascorbic acid is present which may interfere with detection of blood. 5 SEE RESULT BELOW Name: DANA GUSMAN : [address]: Milana Real DO Acct: [id number] Unit: [id number] AGE: 78 Location: [place] [address] Re06/01/19 SEX: F Status: ADM IN SPEC: [id number] MARIA DE JESUS: 05/31/[address]: Alex Ashton MD REQ: [id number] RECD: 05/31/19 STATUS: RADHA CRUZ DR: Candace Lopez MD _ SOURCE: URINE SPDESC: ORDERED: Urine Culture Procedure Result Reported Site Urine Culture Final 06/01/19- 1224 ML No Growth (<1,000 CFU/mL) * - [facility] . END OF REPORT DEPARTMENT OF PATHOLOGY, [address] [place] [address] Naldo Palomo M.D. Director [facility] # [id number] 6 Because ethnic data is not always [...] [address]: Candace Lopez MD Acct: [id number] Unit: [id number] AGE: 78 Location: [facility] Re05/26/19 SEX: F Status: REG REF SPEC: [id number] MARIA DE JESUS: 05/26/19-999 [facility] DR: Candace Lopez MD REQ: [id number] RECD: 05/26/19 STATUS: COMP _ SOURCE: URINE SPDESC: ORDERED: Urine Culture Urine Source: Random Procedure Result Reported Site Urine Culture Final 05/28/19- 0735 ML Organism 1 ESCHERICHIA COLI Mission Count >100,000 (Many) CFU/ML 1. ESCHERICHIA COLI [...] . END OF REPORT DEPARTMENT OF PATHOLOGY, [address] [place] [address] Naldo Palomo M.D. Director [facility] # [id number] 9 SEE RESULT BELOW Name: DANA GUSMAN : [address]: Candace Lopez MD Acct: [id number] Unit: [id number] AGE: 78 Location: [facility] Re05/08/19 SEX: F Status: REG REF SPEC: [id number] MARIA DE JESUS: 05/08/19-[address]: Candace Lopez MD REQ: [id number] RECD: 05/08/19 STATUS: COMP _ SOURCE: URINE SPDESC: ORDERED: Urine Culture Procedure Result Reported Site Urine Culture Final 05/10/19- 0755 ML Organism 1 ESCHERICHIA COLI [place] Count >100,000 (Many) CFU/ML 1. ESCHERICHIA COLI [...] . END OF REPORT DEPARTMENT OF PATHOLOGY, [address] [place] [address] Naldo Palomo M.D. Director [facility] # [id number] 10 Because ethnic data is not always [...] [address]: Candace Lopez MD Acct: [id number] Unit: [id number] AGE: 78 Location: [facility] Re04/25/19 SEX: F Status: REG REF SPEC: [id number] MARIA DE JESUS: 04/25/[address]: Candace Lopez MD REQ: [id number] RECD: 04/25/191006 STATUS: COMP _ SOURCE: URINE SPDESC: ORDERED: Urine Culture Urine Source: Random Procedure Result Reported Site Urine Culture Final 04/27/19- 09 ML Organism 1 ESCHERICHIA COLI [place] Count >100,000 (Many) CFU/ML 1. ESCHERICHIA COLI [...] . END OF REPORT DEPARTMENT OF PATHOLOGY, [address] [place] [address] Naldo Palomo M.D. Director [facility] # [id number] 12 treated with appropriate abx 13 SEE RESULT BELOW Name: DANA GUSMAN : [address]: Candace Lopez MD Acct: [id number] Unit: [id number] AGE: 78 Location: [facility] Re03/07/19 SEX: F Status: REG REF SPEC: [id number] MARIA DE JESUS: 03/07/19-[address]: Candace Lopez MD REQ: [id number] RECD: 03/07/19 STATUS: COMP _ SOURCE: URINE SPDESC: ORDERED: Urine Culture Procedure Result Reported Site Urine Culture Final 03/09/19920 ML Organism 1 ESCHERICHIA COLI [place] Count >100,000 (Many) CFU/ML 1. ESCHERICHIA COLI [...] . END OF REPORT DEPARTMENT OF PATHOLOGY, [address] [place] [address] Naldo Palomo M.D. Director [facility] # [id number] 14 Because ethnic data is not always [...] [address]: Candace Lopez MD Acct: [id number] Unit: [id number] AGE: 78 Location: [facility] Re12/22/18 SEX: F Status: REG REF SPEC: [id number] MARIA DE JESUS: 12/22/18-[address]: Candace Lopez MD REQ: [id number] RECD: 12/22/18 STATUS: COMP _ SOURCE: URINE SPDESC: ORDERED: Urine Culture COMMENTS: [id number] Urine Source: Random Procedure Result Reported Site Urine Culture Final 12/25/18- 0832 ML Organism 1 ESCHERICHIA COLI [place] Count >100,000 (Many) CFU/ML 1. ESCHERICHIA COLI [...] . END OF REPORT DEPARTMENT OF PATHOLOGY, [address] [place] [address] Naldo Palomo M.D. Director [facility] # [id number] Procedures Date Code Description Status 06/04/2019 63099 Cath PLMT&NJX L Ventriculog Img S&I Completed 05/23/2019 01653 ECHO Transthoracic, Real-Time 2D With Doppler And Completed Color Flow 05/23/2019 86292 ECHO Transthoracic, Real-Time 2D With Doppler And Completed Color Flow 01/29/2019 108307684 Diabetic Retinal Eye Exam Completed 04/21/2017 78857061 Mammogram Completed 02/21/2017 825113766 Diabetic Retinal Eye Exam Completed 04/20/2016 97225830 Mammogram Completed 04/23/2015 977913031 Bone Mineral Density Test Completed 04/23/2015 71240254 Mammogram Completed 04/09/2015 20573966 Mammogram Completed 12/28/2013 31892213 Mammogram Completed 03/27/2012 00020133 Mammogram Completed 02/23/2012 103374936 Bone Mineral Density Test Completed 02/23/2012 73325052 Mammogram Completed 03/21/2008 53196476 Mammogram Completed 08/15/2002 35853192 Colonoscopy Completed Medical Devices Description No Information Available Encounters Type Date Location Provider Dx Diagnosis Office Visit 06/04/2019 [facility] Reji Brandon I35.0 Nonrheumatic aortic 12:09p Of Zuly Hampton M.D. (valve) stenosis I25.10 Athscl heart disease of [place] coronary artery w/o ang pctrs Office Visit 06/04/2019 [facility] Amirah Ordoñez, I35.0 Nonrheumatic 11:23a elva Oakley M.D. aortic (valve) Hospitalists stenosis J44.1 Chronic obstructive pulmonary disease w (acute) exacerbation S42.002A Fracture of unsp part of left clavicle, init for clos fx N39.0 Urinary tract infection, site not specified B96.20 Unsp Escherichia coli as the cause of diseases classd elswhr Office Visit 06/03/2019 [facility] Amirah Ordoñez, I35.0 Nonrheumatic 11:23a elva Oakley M.D. aortic (valve) Hospitalists stenosis J44.1 Chronic obstructive pulmonary disease w (acute) exacerbation N39.0 Urinary tract infection, site not specified B96.20 Unsp Escherichia coli as the cause of diseases classd elswhr I10 Essential (primary) hypertension L40.50 Arthropathic psoriasis, unspecified I48.91 Unspecified atrial fibrillation Office Visit 06/02/2019 [facility] Amirah Larsenhn, I35.0 Nonrheumatic 11:23a Assoc,pc M.DDavid aortic (valve) Hospitalists stenosis J44.1 Chronic obstructive pulmonary disease w (acute) exacerbation B96.20 Unsp Escherichia coli as the cause of diseases classd elswhr N39.0 Urinary tract infection, site not specified I10 Essential (primary) hypertension I48.91 Unspecified atrial fibrillation L40.50 Arthropathic psoriasis, 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 collapse Hospitalists I35.0 Nonrheumatic aortic (valve) stenosis I48.20 Chronic atrial fibrillation, unspecified I10 Essential (primary) hypertension G89.29 Other chronic pain L40.50 Arthropathic psoriasis, unspecified Office Visit 04/30/2019 3:40p [facility] Jocelin Brandon B37.2 Candidiasis of Infectious Jacqueline Ricardo skin and nail Diseases Office Visit 04/27/2019 1:00p [facility] Internal Dunia Cee MD N39.0 Urinary tract Medicine - [facility] infection, site not specified R21 Rash and other nonspecific skin eruption Office Visit 04/26/2019 2:40p [facility] Dunia Cee, R10.32 Left lower Medicine - [facility] quadrant pain J20.9 Acute bronchitis, unspecified N39.0 Urinary tract infection, site not specified Office Visit 04/04/2019 11:40a Rheumatology Miles Burdick 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 quadrant pain B02.9 Zoster without complications Office Visit 12/25/2018 11:30a [facility] Talya Giorgio, N30.00 Acute cystitis Medicine - [facility] M.[facility]. without hematuria B02.9 Zoster without complications [...] M.D. 06/05/2019 I25.10 Atherosclerotic heart disease of [place] Reji Hampton M.D. coronary artery without angina [...] specified 06/04/2019 I25.10 Atherosclerotic heart disease of [place] Rejimichael Hampton M.D. coronary artery without angina pectoris 06/04/2019 B96.20 Unspecified Escherichia coli [E. coli] Amirah Ordoñez M.D. as the cause of diseases classified elsewhere 06/03/2019 R55 Syncope and collapse Dimtri Gaston M.D. 06/03/2019 I35.0 Nonrheumatic aortic (valve) stenosis Amirah Ordoñez M.D. 06/03/2019 I35.0 Nonrheumatic aortic (valve) stenosis Dmitri Gaston M.D. 06/03/2019 J44.1 Chronic obstructive pulmonary disease Amirah Ordoñez M.D. with (acute) exacerbation 06/03/2019 I10 Essential (primary) hypertension Dmitri Gaston M.D. 06/03/2019 N39.0 Urinary tract infection, site not Amirah Ordoñez M.D. specified 06/03/2019 I48.92 Unspecified atrial flutter Dmitri Gaston M.D. 06/03/2019 B96.20 Unspecified Escherichia kapil [E. coli] Amirah Ordoñez M.D. as the cause of diseases classified elsewhere 06/03/2019 I48.91 Unspecified atrial fibrillation Dmitri Gaston M.D. 06/03/2019 I10 Essential (primary) hypertension Amirah Ordoñez M.D. 06/03/2019 L40.50 Arthropathic psoriasis, unspecified Amirah Ordoñez M.D. 06/03/2019 I48.91 Unspecified atrial fibrillation Amirah Ordoñez M.D. 06/02/2019 R55 Syncope and collapse Dmitri Gasotn M.D. 06/02/2019 I35.0 Nonrheumatic aortic (valve) stenosis [...] Gaston M.D. 06/01/2019 R55 Syncope and collapse Milana Real D.O. 06/01/2019 R06.02 Shortness of breath Dmitri Gaston M.D. 06/01/2019 I35.0 Nonrheumatic aortic (valve) stenosis Milana Real D.O. 06/01/2019 I35.0 Nonrheumatic aortic (valve) stenosis Dmitri Gaston M.D. 06/01/2019 I48.20 Chronic atrial fibrillation, Milana Real D.O. unspecified 06/01/2019 I48.0 Paroxysmal atrial fibrillation Dmitri Gaston M.D. 06/01/2019 I10 Essential (primary) hypertension Milana Real D.O. 06/01/2019 I48.92 Unspecified atrial flutter Dmitri Gaston M.D. 06/01/2019 G89.29 Other chronic pain Milana Real D.O. 06/01/2019 N39.0 Urinary tract infection, site not Dmitri Gaston M.D. specified 06/01/2019 L40.50 Arthropathic psoriasis, unspecified Roma CastroO. 06/01/2019 J42 Unspecified chronic bronchitis Dmitri Gaston M.D. 05/31/2019 R55 Syncope and collapse Ivy Orozco NP 05/31/2019 R79.89 Other specified abnormal findings of Ivy Orozco NP blood chemistry 05/31/2019 I10 Essential [...] Burdick M.D. pathological fracture 04/04/2019 Z79.899 Other mcc (current) drug therapy Miles Burdick M.D. 04/04/2019 M19.049 Primary osteoarthritis, unspecified Miles Burdick M.D. 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 03/09/2019 R51 Headache Marvin Odell, N.P. 03/09/2019 M48.061 Spinal stenosis, lumbar region without Marvin Odell, N.P. neurogenic claudicati 03/09/2019 M54.6 Pain in thoracic spine Marvin Odell N.PDavid 03/09/2019 R32 Unspecified urinary incontinence Marvin Odell N.P. 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 01/10/2019 R04.2 Hemoptysis Candace Lopez MD 01/10/2019 B02.29 Other postherpetic nervous system Candace Lopez MD involvement 01/10/2019 J41.0 Simple chronic bronchitis Candace Lopez MD 01/10/2019 G89.4 Chronic pain syndrome Candace Lopez MD 01/10/2019 F33.1 Major depressive disorder, recurrent, Candace Lopez MD moderate 01/03/2019 R10.32 Left lower quadrant pain Talay Alvares M.D. 01/03/2019 B02.9 Zoster without complications Talya Alvares M.D. 12/25/2018 N30.00 Acute cystitis without hematuria Talya Alvares M.D. 12/25/2018 B02.9 Zoster without complications Talya Alvares M.D. 12/22/2018 R30.0 Dysuria Nurse Visit A 12/22/2018 M54.5 Low back pain Nurse Visit A Plan of Treatment Future Appointment(s):07/09/2019 1:30 pm - Nurse Visit IC at [facility]07/18/2019 11:00 am - Ica ECHO Schedule at [facility]2018 4:00 pm - Reji Hampton M.D. at [facility]01/03/2020 1: 00 pm - Miles Burdick M.D. at [facility]06/13/2019 - Magali Laurent MDI35.0 Nonrheumatic aortic (valve) rcrmjcofC47.1 Chronic obstructive pulmonary disease with (acute) hpeatomqxiukP46.4 Chronic pain yineqdbtX36.0 Urinary tract infection, site not specifiedComments:Stop taking an antibiotics at home which is specifically for UTI, not eytgwrecurssspvyD22.14 Personal history of Methicillin resistant Staphylococcus aureus infectionComments:Dr Lalita AGUSTIN Continues on vancomycin for upvrpormxlcbwpxfZ53 Essential (primary) hypertension Functional Status Functional Condition Comment Date Status Standard cane is used to ambulate Active Mental Status Description No Information Available Referrals Refer to Dr Reason for Referral Status Appt Date Kunal De Guzman MD evaluation of wheelchair bound patient with Sent 2018 chronic constipation and recurrent UTIs as well as incontinence. [address] [place] [address] [place] [address] [phone] Other Physician Practices REF: DR. LLOYD FEL[facility] PHONE: [phone] FAX: [phone] Param Tavarez MD pls evaluate pt with severe chronic pain who is Sent interested in medical cannabis [address] [place] [address] [phone] Chris Childs MD Sent [address] [facility] [address] [place] [address] [phone]
--- OUTSIDE RECORDS SUMMARY | 2019-06-20 18:23 | XMS REPORT | Continuity of Care Document ---
:1940 External Reference #:[id number] Author Name Dmitri Gaston M.D. (transmitted by agent of provider Carito Laguna ) Address [address] [address] Care Team Providers Name Role Phone Guerrero Morgan MD - Rheumatology Care Team Information Supervisor [facility] Miles Grarett MD - Pulmonary Disease Care Team Information Supervisor [facility] Iveth Serrano MD - Infectious Care Team Information Supervisor [facility] Disease Esmer Maldonado MD - Surgery of the Care Team Information Supervisor [facility] [phone] Hand Enrique Torres MD - Orthopaedic Surgery Care Team Information Supervisor [facility] of [facility] Nicola Ricardo MD - Infectious Care Team Information Supervisor [facility] Disease Anabell Carrizales MD - Surgery Care Team Information Supervisor [facility] [phone] Emi Kunz MD - Hematology & Care Team Information Supervisor [facility] [phone] Oncology Reji Hampton MD - Cardiovascular Care Team Information Supervisor [facility] Disease [facility] - Care Team Information Supervisor [facility] [phone] Exercise & Sports Wilber Manuel MD - Care Team Information Supervisor [facility] [phone] Neurological Surgery Marko Peters M.D. - Neurology Care Team Information Supervisor [facility] Miles Burdick MD - Rheumatology Care Team Information Supervisor [facility] Candace Lopez M.D. - [facility] Medicine Care Team Information Supervisor [facility] Problems Active Problems Provider Date Common variable [...] Middleton M.D. Onset: 04/24/2014 Eosinophilic esophagitis Marleny oNrris MD Onset: 01/20/2015 Mechanical complication of internal [...] Dunia Cee MD 04/27/2019 day in thin 595024-2.1Unit/GM-% layer Cream Valacyclovir HCL 1 tab PO [...] neb 540units J20.9 Candace Lopez MD 08/30/2018 Yeoman/Albuterol every 4-6 hours Sulfate for 0.5-2.5(3)mg/3ML wheezing/coughin [...] 1 by mouth every Ernst Brandon 03/06/2018 [id number] day Jacqueline Terry,FACP Capsules Tikosyn take one [...] 1 tab daily 90tabs Nicola Brandon 09/13/2017 [facility] Jacqueline Ricardo 400-80mg Tablets Motorized Scooter [...] CPT Code Status Date Vaccine Lot # [id number] Given 05/10/2018 Influenza Virus Vaccine, Quadrivalent, Split, [id number] Preservative Free 30697 Given 07/01/2017 Influenza Virus Vaccine, Quadrivalent, Split, [id number] Preservative Free 49684 Given 05/11/2016 Influenza Virus Vaccine, Quadrivalent, Split, [id number] Preservative Free 98698 Given 06/17/2015 Influenza Virus 3Yrs & Over 22865 Given 05/01/2015 Influenza Virus Vaccine, Quadrivalent, Split, [id number] Preservative Free [id number] Given 12/30/2014 Fluvirin Im 3Yrs And Older 54797 Given 06/13/2014 Pneumococcal Conjugate Vaccine 13 Valent For [id number] Intramuscular Use 76894 Given 06/13/2014 Flu Vaccine Split Virus Preservative Free For [id number] Indiv 3Yr Older 78450 Given 05/16/2013 Flu Vaccine Split Virus Preservative Free For [id number] Indiv 3Yr Older Q2037 Given 05/20/2012 Fluvirin Im 3Yrs And Older 71260 Given 02/29/2012 Zoster (Zostavax) [id number] 28029 Given 02/10/2012 Pneumonia Vaccine [id number] Q2038 Given 06/05/2011 Fluzone Vaccine [id number] 12521 Given 06/25/2010 Influenza Virus 3Yrs & Over 90175 Given 07/25/2009 Influenza Virus Vaccine, Pandemic Formulation [id number] 20612 Given 08/15/2006 Td (History By Patient) Vital [...] Normal 3.5-10.[address] [place] [address] [phone] Red Blood Count 3.73 10^6/uL Normal 3.70-4.87 [...] mmol/L Normal 0.5-2.0 1 finding [address] [place] [address] [phone] Comp Metabolic 05/31/2019 [facility] Sodium 131 mmol/L Low 135 -145 Panel [address] [place] [address] [phone] Potassium 4.1 mmol/L Normal 3.5-5.0 Chloride 98 [...] mg/dL Normal 1.9-2.[address] [place] [address] [phone] Troponin-I (TnI) 0.05 ng/mL Critical high <0.04 3 TSH (Thyroid Stim Horm) 0.49 mcIU/mL Normal 0.34-5.60 Urinalysis Profile 05/31/2019 [facility] Urine Color Yellow [address] [place] [address] [phone] Urine Appearance Cloudy Urine Specific [place] 1.010 Normal 1.010-1.030 Urine pH 6.0 Normal [...] [address] [place] [address] [phone] CBC Auto Diff 05/29/2019 [facility] White Blood 4.5 10^3/uL Normal 3.5-[address] Count 0.8 [place] [address] [phone] Red Blood Count 3.54 10^6/uL Low 3.70-4.87 [...] 133 mmol/L Low 135-[address] [place], [place] [address] [phone] Potassium 4.3 mmol/L Normal 3.5-5.0 Chloride 99 [...] U/L Normal 11.0-82.[address] [place], [place] [address] [phone] C Reactive Protein 31.18 mg/L High <8.01 Urine Culture And 05/26/2019 [facility] Urine SEE RESULT 7 , [address] [place] [place] [address] [phone] Urine Culture And 05/08/2019 [facility] Urine SEE RESULT [address] Culture BELOW [place], [place] [address] [phone] Basic Metabolic 04/27/2019 [facility] Sodium 131 mmol/L Low 135-[address] [place] [address] [phone] Potassium 4.4 mmol/L Normal 3.5-5.0 Chloride 97 [...] RESULT [address] [place] [address] [phone] Urinalysis Profile 03/07/2019 [facility] Urine Color Candace [address] [place] [address] [phone] Urine Appearance Turbid Urine Specific [place] 1.010 Normal 1.010-1.030 Urine pH 8.0 Normal [...] [address] [place] [address] [phone] CBC Auto Diff 01/10/2019 [facility] White Blood 5.5 10^3/uL Normal 3.5- [address] Count 10.8 [place] [address] [phone] Red Blood Count 4.43 10^6/uL Normal 3.70-4.87 [...] Sodium 133 mmol/L Low 135-145 [address] [place] [address] [phone] Potassium 3.7 mmol/L Normal 3.5-5.0 Chloride 98 [...] 132 mmol/L Low 135-[address] [place] [address] [phone] Potassium 4.3 mmol/L Normal 3.5-5.0 Chloride 100 [...] mg/dL Normal 1.9-2.[address] [place] [address] [phone] CBC Auto Diff 01/03/2019 [facility] White Blood 5.1 Normal 3.5 -10.[address] Count 10^3/[place] [address] [phone] Red Blood Count 4.64 10^6/uL Normal 3.70-4.87 [...] Hospital Urine Color Yellow [address] [place] [address] [phone] Urine Appearance Cloudy Urine Specific [place] 1.015 Normal 1.010-1.030 Urine pH 6.0 Normal 5-9 Urine Urobilinogen Negative Negative Urine Ketones Negative Negative Urine Protein Negative Negative Urine Leukocytes Negative Negative Urine Blood Negative Negative Urine Nitrite Negative Negative Urine Bilirubin Negative Negative Urine Glucose Negative Negative Urine Culture And 12/22/2018 [facility] Urine Culture SEE RESULT [address] [place] [address] [phone] Ua Routine 12/22/2018 [facility] Ua Specific 1.000 [place] Ua PH 7 Ua Color YELLOW Ua Appera CLOUDY Ua WBC LARGE Ua Protein TRACE Ua Glucose NORM Ua Ketones NEG Ua Bilirubin NEG Ua Urobilinogen NEG Ua Nitrite + Ua Occult Blood TRACE 1 [facility] Severe Sepsis and Septic Shock Management [...] (or dialysis) 3 Result TnIDx:0.05 Called to [id number] at: 15:18:27 by:[id number] Read back by: [id number] Troponin-I testing on Plasma Separator Tubes (PST) has a known false positive rate of 0.20-0.40%. All positive troponins reflex immediately to secondary confirmatory testing. Using the Suso 800 Access Immunoassay systems, the 99th percentile upper reference limit was demonstrated to be < 0.03 ng/mL. 4 *Ascorbic acid is present which may interfere with detection of blood. 5 SEE RESULT BELOW Name: DANA GUSMAN : [address]: Milana Real DO Acct: [id number] Unit: [id number] AGE: 78 Location: [place] [address] Re06/01/19 SEX: F Status: ADM IN SPEC: [id number] MARIA DE JESUS: 05/31/[address]: Alex Ashton MD REQ: [id number] RECD: 05/31/19 STATUS: RADHA CRUZ DR: Candace Lopez MD _ SOURCE: URINE SPDESC: ORDERED: Urine Culture Procedure Result Reported Site Urine Culture Final 06/01/19- 1224 ML No Growth (<1,000 CFU/mL) * - [facility] . END OF REPORT DEPARTMENT OF PATHOLOGY, [address] [place] [address] Naldo Palomo M.D. Director [facility] # [id number] 6 Because ethnic data is not always [...] [address]: Candace Lopez MD Acct: [id number] Unit: [id number] AGE: 78 Location: [facility] Re05/26/19 SEX: F Status: REG REF SPEC: [id number] MARIA DE JESUS: 05/26/[address] [facility] [address]: Candace Lopez MD REQ: [id number] RECD: 05/26/19 STATUS: COMP _ SOURCE: URINE SPDESC: ORDERED: Urine Culture Urine Source: Random Procedure Result Reported Site Urine Culture Final 05/28/19- 0735 ML Organism 1 ESCHERICHIA COLI [place] Count >100,000 (Many) CFU/ML 1. ESCHERICHIA COLI [...] . END OF REPORT DEPARTMENT OF PATHOLOGY, [address] [place] [address] Naldo Palomo M.D. Director [facility] # [id number] 9 SEE RESULT BELOW Name: DANA GUSMAN : [address]: Candace Lopez MD Acct: [id number] Unit: [id number] AGE: 78 Location: [facility] Re05/08/19 SEX: F Status: REG REF SPEC: [id number] MARIA DE JESUS: 05/08/19-[address]: Candace Lopez MD REQ: [id number] RECD: 05/08/19 STATUS: COMP _ SOURCE: URINE SPDESC: ORDERED: Urine Culture Procedure Result Reported Site Urine Culture Final 05/10/19- 0755 ML Organism 1 ESCHERICHIA COLI [place] Count >100,000 (Many) CFU/ML 1. ESCHERICHIA COLI [...] . END OF REPORT DEPARTMENT OF PATHOLOGY, [address] [place] [address] Naldo Palomo M.D. Director [facility] # [id number] 10 Because ethnic data is not always [...] [address]: Candace Lopez MD Acct: [id number] Unit: [id number] AGE: 78 Location: [facility] Re04/25/19 SEX: F Status: REG REF SPEC: [id number] MARIA DE JESUS: 04/25/[address]: Candace Lopez MD REQ: [id number] RECD: 04/25/19100 STATUS: COMP _ SOURCE: URINE SPDESC: ORDERED: Urine Culture Urine Source: Random Procedure Result Reported Site Urine Culture Final 04/27/19- 0900 ML Organism 1 ESCHERICHIA COLI [place] Count >100,000 (Many) CFU/ML 1. ESCHERICHIA COLI [...] . END OF REPORT DEPARTMENT OF PATHOLOGY, [address] [place] [address] Naldo Palomo M.D. Director [facility] # [id number] 12 treated with appropriate abx 13 SEE RESULT BELOW Name: DANA GUSMAN : [address]: Candace Lopez MD Acct: [id number] Unit: [id number] AGE: 78 Location: [facility] Re03/07/19 SEX: F Status: REG REF SPEC: [id number] MARIA DE JESUS: 03/07/19-[address]: Candace Lopez MD REQ: [id number] RECD: 03/07/19 STATUS: COMP _ SOURCE: URINE SPDESC: ORDERED: Urine Culture Procedure Result Reported Site Urine Culture Final 03/09/19- 0921 ML Organism 1 ESCHERICHIA COLI [place] Count >100,000 (Many) CFU/ML 1. ESCHERICHIA COLI [...] . END OF REPORT DEPARTMENT OF PATHOLOGY, [address] [place] [address] Naldo Palomo M.D. Director [facility] # [id number] 14 Because ethnic data is not always [...] [address]: Candace Lopez MD Acct: [id number] Unit: [id number] AGE: 78 Location: [facility] Re12/22/18 SEX: F Status: REG REF SPEC: [id number] MARIA DE JESUS: 12/22/18-[address]: Candace Lopez MD REQ: [id number] RECD: 12/22/18 STATUS: COMP _ SOURCE: URINE [facility]: ORDERED: Urine Culture COMMENTS: [id number] Urine Source: Random Procedure Result Reported Site Urine Culture Final 12/25/18- 0832 ML Organism 1 ESCHERICHIA COLI [place] Count >100,000 (Many) CFU/ML 1. ESCHERICHIA COLI [...] . END OF REPORT DEPARTMENT OF PATHOLOGY, [address] [place] [address] Naldo Palomo M.D. Director [facility] # [id number] Procedures Date Code Description Status 05/23/2019 92470 ECHO Transthoracic, Real-Time 2D With Doppler And Completed Color Flow 05/23/2019 23592 ECHO Transthoracic, Real-Time 2D With Doppler And Completed Color Flow 01/29/2019 885732714 Diabetic Retinal Eye Exam Completed 04/21/2017 56801669 Mammogram Completed 02/21/2017 375569022 Diabetic Retinal Eye Exam Completed 04/20/2016 45154277 Mammogram Completed 04/23/2015 656548923 Bone Mineral Density Test Completed 04/23/2015 49628198 Mammogram Completed 04/09/2015 72549119 Mammogram Completed 12/28/2013 17122528 Mammogram Completed 03/27/2012 07269092 Mammogram Completed 02/23/2012 372867616 Bone Mineral Density Test Completed 02/23/2012 22788491 Mammogram Completed 03/21/2008 77116070 Mammogram Completed 08/15/2002 78660685 Colonoscopy Completed Medical Devices Description No Information Available Encounters Type Date Location Provider Dx Diagnosis [facility] Candidiasis of skin 3:40p Ana Ricardo M.D. 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 quadrant pain B02.9 Zoster without complications Office Visit 12/25/2018 11:30a [facility] Internal Talyadalton Alvares, N30.00 [facility] without hematuria B02.9 Zoster without complications [...] Burdick M.D. pathological fracture 04/04/2019 Z79.899 Other watermelon inspector (current) drug therapy Miles Burdick M.D. 04/04/2019 [...] 4:00 pm - Reji Hampton M.D. at [facility]01/03/2020 1:00 pm - Miles Burdick M.D. at [facility]06/15/2019 1:45 pm - Marko Peters M.D. at [place] [facility]04/30/2019 - Nicola Ricardo M.D.B37.2 Candidiasis of [...] recurrent UTIs as well as incontinence. [address] [place] [address] [place] [address] [phone] Other Physician Practices REF: DR. LLOYD FELIPE [facility] PHONE: [phone] FAX: [phone] Param Tavarez MD pls evaluate pt with severe chronic pain who is Sent interested in medical cannabis [address] [place] [address] [phone] Chris Childs MD Sent [address] [facility] [address] [place] [address] [phone]
[2019-06-20 19:16] LABS: ALT 15 U/L (7-52); AST 30 U/L (13-39); Albumin 3.8 g/dL (3.2-5.2); Albumin/Globulin Ratio 1.7 (1-3); Alkaline Phosphatase 63 U/L (34-104); Anion Gap 7 mmol/L (2-11); BUN/Creatinine Ratio 14.5 (8-20); Blood Urea Nitrogen 10 mg/dL (6-24); CO2 Carbon Dioxide 24 mmol/L (22-32); Calcium 8.9 mg/dL (8.6-10.3); Chloride 96 mmol/L (101-111); EGFR African American 99.6 (>60); EGFR Non-African American 82.3 (>60); Globulin 2.3 g/dL (2-4); Glucose 111 mg/dL (70-100); Potassium 4.2 mmol/L (3.5-5.0); Sodium 127 mmol/L (135-145); Total Protein 6.1 g/dL (6.4-8.9)
[2019-06-20 19:18] LABS: ABS Eosinophils 0.3 10^3/ul (0-0.6); ABS Lymphocytes 1.1 10^3/ul (1.0-4.8); ABS Monocytes 0.7 10^3/ul (0-0.8); ABS Neutrophils 9.2 10^3/ul (1.5-7.7); Eosinophil % 2.3 %; Hematocrit 31 % (35-47); Hemoglobin 10.2 g/dL (12.0-16.0); Lymphocyte % 9.8 %; Mean Corpuscular HGB Conc 33 g/dL (31-36); Mean Corpuscular Hemoglobin 30 pg (27-31); Mean Corpuscular Volume 90 fL (80-97); Mean Platelet Volume 7.1 fL (7.4-10.4); Platelet Count 185 10^3/uL (150-450); Red Blood Count 3.42 10^6 /uL (3.70-4.87); Red Cell Distribution Width 15 % (10-15); White Blood Count 11.3 10^3/uL (3.5-10.8)
[2019-06-20 19:22] LABS: Troponin I 0.04 ng/mL (<0.04)
--- NOTE | 2019-06-20 19:42 | ED ---
Dizziness - HPI Summary HPI Summary: Pt is a 78 y/o F presenting to the ED with a chief complaint of weakness. She had a cardiac catheterization on 06/[address] Hampton who then transferred her to [place] d/t 80% stenosis of LAD, where she was dxed with severe aortic stenosis with syncope. She had the valve replaced, stent placed, and a pacemaker placed. She was d/seble on 06/10/19, and notes hx of CVID, for which she follows Dr. García. After being d/seble, she has been incredibly weak and fatigued. Her and her agreed that the pt has been more fatigued and having increased trouble catching her breath. She was able to do her ADLs on her own (toileting, changing herself), but is now unable to. She also reports fever, chills, and frequency of urination. She denies nausea, vomiting, or chest pain. - History Of Current Complaint Chief Complaint: EDWeakness Stated Complaint: FEVER PER Time Seen by Provider: 06/20/19 18:18 Hx Obtained From: Patient Onset/Duration: Still Present, Gradually Timing: Days Severity Initially: Mild Severity Currently: Moderate Character: Weak Aggravating Factor(s): Nothing Alleviating Factor(s): Nothing Associated Signs And Symptoms: Positive: SOB, Fever, Chills, Inability to Walk. Negative: Nausea, Vomiting, Chest Pain - Allergies/Home Medications Allergies/Adverse Reactions: Allergies Allergy/AdvReac Type Severity Reaction Status Date / Time azathioprine Allergy See Comment Verified 01/09/19 23:02 celecoxib [From Celebrex] Allergy Rash Verified 01/09/19 23:02 chlorhexidine Allergy Rash And Verified 01/09/19 23:02 Itching methotrexate Allergy See Comment Verified 01/09/19 23:02 vancomycin Allergy See Comment Verified 01/09/19 23:02 adhesives AdvReac Intermediate Rash Uncoded 01/09/19 23:02 Home Medications: Home Medications Atorvastatin* [Lipitor*] 40 mg PO DAILY 06/20/19 [History Confirmed 06/20/19] Clopidogrel TAB* [Plavix TAB*] 75 mg PO DAILY 06/20/19 [History Confirmed ] Hydromorphone HCl [Hydromorphone ER] 12 mg PO BID 06/20/19 [History Confirmed ] Metoprolol Succinate XL TAB* [Toprol XL TAB*] 25 mg PO QAM 06/20/19 [History Confirmed 06/20/19] Telmisartan (NF) [Micardis (NF)] 40 mg PO QPM 06/20/19 [History Confirmed ] amLODIPine TAB* [Norvasc 5 mg TAB*] 10 mg PO DAILY 06/20/19 [History Confirmed 06/20/19] hydrALAZINE TAB* [Apresoline TAB*] 15 mg PO TID 06/20/19 [History Confirmed 01/31] predniSONE TAB* [Deltasone 20 MG TAB*] 40 mg PO QAM 06/20/19 [History Confirmed 06/20/19] PMH/Surg Hx/FS Hx/Imm Hx Previously Healthy: Yes Endocrine/Hematology History: Reports: Hx Anticoagulant Therapy - eliquis, Hx Thyroid Disease - hypothyroidism Denies: Hx Blood Disorders, Hx Blood Transfusions, Hx Bone Marrow Disease, Hx Diabetes, Hx Systemic Lupus Erythematosus, Hx Sickle Cell Disease, Hx Anemia , Hx Unexplained Bleeding, Other Endocrine/Hematological Disorders Cardiovascular History: Reports: Hx Atrial Fibrillation - on blood thinner, Hx Hypercholesterolemia, Hx Hypertension, Hx Valvular Heart Disease - Aortic Valve disease, Other Cardiovascular Problems/Disorders - aortic valve stenosis Denies: Hx Aneurysm, Hx Angina, Hx Angioplasty, Hx Auto Implanted Cardiovert Defib, Hx Cardiac Arrest, Hx Cardiomegaly, Hx Congenital Heart Disease, Hx Congestive Heart Failure, Hx Coronary Artery Disease, Hx Deep Vein Thrombosis, Hx Embolism, Hx Hypotension, Hx Pacemaker/ICD, Hx Peripheral Vascular Disease, Hx Rheumatic Fever, Hx Syncope Respiratory History: Reports: Hx Chronic Bronchitis, Hx Pneumonia, Hx Sleep Apnea, Other Respiratory Problems/Disorders - Pulmonary HTN Denies: Hx Asthma, Hx Chronic Obstructive Pulmonary Disease (COPD) - with chronic bronchitis, Hx Cystic Fibrosis, Hx Lung Cancer, Hx Pleural Effusion, Hx Pulmonary Edema, Hx Pulmonary Embolism, Hx Seasonal Allergies GI History: Reports: Hx Gastroesophageal Reflux Disease, Hx Ulcer - gerd, Other GI Disorders - CONSTIPATION- DIET CONTROLLED Denies: Hx Cirrhosis, Hx Crohn's Disease, Hx Diverticulosis, Hx Gall Bladder Disease, Hx Gastrointestinal Bleed, Hx Hiatal Hernia, Hx Irritable Bowel, Hx Jaundice, Hx Obstructive Bowel, Hx Ileostomy, Hx Pyloric Stenosis History: Reports: Other Problems/Disorders - UTIs ONCE IN AWHILE, not recent per pt Denies: Hx Dialysis, Hx Renal Disease Musculoskeletal History: Reports: Hx Arthritis - psoriatic, Hx Back Problems, Hx Orthopedic Injury - Right arm reconstruction r/t traumatic injury, Other Musculoskeletal History - Left Fibula Fracture 08/03/16, several lumbar back surgeries Denies: Hx Bursitis, Hx Congenital Bone Abnormalities, Hx Fibromyalgia, Hx Gout, Hx Osteoporosis, Hx Scoliosis, Hx Tendonitis Sensory History: Reports: Hx Cataracts, Hx Contacts or Glasses, Hx Hearing Problem Denies: Hx Eye Injury, Hx Eye Prosthesis, Hx Glaucoma, Hx Legally Blind, Hx Macular Degeneration, Hx Vision Problem, Hx Deafness, Hx Hearing Aid, Other Sensory Impairments Opthamlomology History: Reports: Hx Cataracts, Hx Contacts or Glasses Denies: Hx Eye Injury, Hx Eye Prosthesis, Hx Glaucoma, Hx Legally Blind, Hx Macular Degeneration, Hx Vision Problem, Other Sensory Impairments Neurological History: Reports: Hx Headaches - recurring cerviogenic headaches, Hx Nerve Disease Denies: Hx CVA, Other Neuro Impairments/Disorders - spinal cord deformities Psychiatric History: Reports: Hx Depression, Hx Suicide Attempt, Hx Substance Abuse - EtOH Denies: Hx Anxiety, Hx Attention Deficit Hyperactivity Disorder, Hx Eating Disorder, Hx Panic Disorder, Hx Post Traumatic Stress Disorder, Hx Inpatient Treatment, Hx Community Mental Health Tx, Hx Schizophrenia, Hx Bipolar Disorder , Hx of Violent Episodes Against Others, Other Psychiatric Issues/Disorders - Cancer History Cancer Type, 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 LT FOOT - REPAIR - RECON W/ METAL, THEN REMOVAL OF HARDWARE;. LUMBAR - DISCETOMY, HERNIATION. NON- MALIGNANT TUMOR REMOVED FROM SPINE, FUSION (NO METAL);. REN KNEE REPLACEMENTS ( 1999 & 2009). Rt ELBOW - ARTIFICIAL JOINT AND METAL PLATE ABOVE JOINT (Rt HUMERUS ORIF AND REVISION OF LEBOW X2 THEN LATER RIGHT ELBOW DEBRIDEMENT);. TONSILECTOMY. APPENDECTOMY,. OVARIAN CYST REMOVED - REN;. LUMPECTOMY 2011; Rt MASTECTOMY 2014- W/ RADIATION. LEFT ANKLE x2 (has hardware),. tubal;. EAR TUBES RECENTLY;. ESOPHAGUS STRETCHING-[place] Hx Anesthesia Reactions: No - Immunization History Date of Tetanus Vaccine: unknown Date of Influenza Vaccine: unknown Infectious Disease History: No Infectious Disease History: Reports: Hx of Known/Suspected MRSA - [facility] on from body fluid right elbow. Chronic prophylactic ABX Denies: Hx Clostridium Difficile, Hx Hepatitis, Hx Human Immunodeficiency Virus (HIV), Hx Shingles, Hx Tuberculosis, Hx Known/Suspected VRE, Hx Known/ Suspected VRSA, History Other Infectious Disease, Traveled Outside the [place] in Last 30 Days - Family History Known Family History: Positive: Other - Breast CA - Social History Alcohol Use: None Hx Substance Use: Yes Substance Use Type: Reports: None Substance Use Comment - Amount & Last Used: DILAUDID for chronic pain Hx Tobacco Use: Yes Smoking Status (MU): Former Smoker Type: Cigarettes Amount Used/How Often: 5 a day Length of Time of Smoking/Using Tobacco: 15 yrs Have You Smoked in the Last Year: No Review of Systems Positive: Fever, Chills, Fatigue Negative: Chest Pain Positive: Shortness Of Breath Negative: Vomiting, Nausea Positive: Decreased ROM Positive: Weakness All Other Systems Reviewed And Are Negative: Yes Physical Exam - Summary Physical Exam Summary: Constitutional: Elderly, Well-nourished, Alert. (-) Distressed Skin: Warm, Dry. Ecchymosis of the L chest wall at the pacemaker site without evidence of infection. Ecchymosis to the L forearm. HENT: Normocephalic; Atraumatic Eyes: Conjunctiva normal Neck: Musculoskeletal ROM normal neck. (-) JVD, (-) Stridor, (-) Nuchal rigidity Cardio: Rhythm regular, rate normal, Heart sounds normal; Intact distal pulses; Radial pulses are 2+ and symmetric. (-) Murmur Pulmonary/Chest wall: Effort normal. (-) Respiratory distress. Bilateral rhonchi Abd: Soft, (-) tenderness, (-) Distension, (-) Guarding, (-) Rebound Musculoskeletal: Trace edema of the ankles. Lymph: (-) Cervical adenopathy Neuro: Alert, Oriented x3 Psych: Mood and affect Normal Triage Information Reviewed: Yes Vital Signs On Initial Exam: Initial Vitals Temp Pulse Resp BP Pulse Ox 98.9 F 81 18 133/105 93 06/20/19 18:07 06/20/19 18:07 06/20/19 18:07 06/20/19 18:07 06/20/19 18:07 Vital Signs Reviewed: Yes Procedures - Procedure Summary Procedure Summary: US IV Ultrasound Guided Peripheral IV Procedure Note Indication: Unable to obtain adequate IV access Skin Prep:Chlorhexidine Sterile Prep (allowed to dry for thirty seconds) Sterility: Gloves Insertion: Appropriate time out was taken. Ultrasound guidance was utilized for vein selection, to document selected vessel patency and real time ultrasound visualization of vascular needle entry into venous lumen. Insertion Site: L AC Type of catheter: 18 gauge catheter Blood return:yes Saline lock: yes Post Procedure: Estimated blood loss: minimal she had 2 IVs placed, after CT patient second IV blew. - Sedation Patient Received Moderate/Deep Sedation with Procedure: No Diagnostics - Vital Signs Vital Signs Temp Pulse Resp BP Pulse Ox 06/20/19 18:52 76 21 126/80 95 06/20/19 18:23 78 166/64 89 06/20/19 18:07 98.9 F 81 18 133/105 93 - Laboratory Lab Results: Lab Results 06/20/19 06/20/19 06/20/19 Range/Units 18:42 18:42 18:42 WBC 11.3 H (3.5-10.8) 10^3/uL RBC 3.42 L (3.70-4.87) 10^6 /uL Hgb 10.2 L (12.0-16.0) g/dL Hct 31 L (35-47) % MCV 90 (80-97) fL MCH 30 (27-31) pg MCHC 33 (31-36) g/dL RDW 15 (10-15) % Plt Count 185 (150-450) 10^3/uL MPV 7.1 L (7.4-10.4) fL Neut % (Auto) 81.2 % Lymph % (Auto) 9.8 % [place] % (Auto) 6.6 % Eos % (Auto) 2.3 % Baso % (Auto) 0.1 % Absolute Neuts (auto) 9.2 H (1.5-7.7) 10^3/ul Absolute Lymphs (auto) 1.1 (1.0-4.8) 10^3/ul Absolute Monos (auto) 0.7 (0-0.8) 10^3/ul Absolute Eos (auto) 0.3 (0-0.6) 10^3/ul Absolute Basos (auto) 0.0 (0-0.2) 10^3/ul Absolute Nucleated RBC 0.0 10^3/ul Nucleated RBC % 0.0 Sodium 127 L (135-145) mmol/L Potassium 4.2 (3.5-5.0) mmol/L Chloride 96 L (101-111) mmol/L Carbon Dioxide 24 (22-32) mmol/L Anion Gap 7 (2-11) mmol/L BUN 10 (6-24) mg/dL Creatinine 0.69 (0.51-0.95) mg/dL Est GFR ( Amer) 99.6 (>60) Est GFR (Non-Af Amer) 82.3 (>60) BUN/Creatinine Ratio 14.5 (8-20) Glucose 111 H (70-100) mg/dL Calcium 8.9 (8.6-10.3) mg/dL Total Bilirubin 0.70 (0.2-1.0) mg/dL AST 30 (13-39) U/L ALT 15 (7-52) U/L Alkaline Phosphatase 63 (34-104) U/L Troponin I 0.04 H* (<0.04) ng/mL B-Natriuretic Peptide 290 H (<=100) pg/mL Total Protein 6.1 L (6.4-8.9) g/dL Albumin 3.8 (3.2-5.2) g/dL Globulin 2.3 (2-4) g/dL Albumin/Globulin Ratio 1.7 (1-3) Result Diagrams: 06/21/19 03:59 06/21/19 03:59 Lab Statement: Any lab studies that have been ordered have been reviewed, and results considered in the medical decision making process. - Radiology CXR Radiology Interpretation Completed By: ED Physician Summary of Radiographic Findings: Pacemaker in L chest wall. L-sided pleural effusion. Pending official radiology report. - EKG 1842 Cardiac Rate: Other Rate - ventricular paced 77bpm EKG Rhythm: Sinus Rhythm Summary of EKG Findings: An EKG at 1842 shows V-paced at 77bpm. ED physician has reviewed and interpreted this EKG. Re-Evaluation - Re-Evaluation First Eval Re-Evaluation Time: 22:20 Change: Improved - Concern for infectious process on CT. She is satting well on [address] of chest done pending read. Dizzy Course/Dx - Course Course Of Treatment: 78-year-old female with a history of aortic stenosis recent TAPVR, pacemaker placement, stent to LAD who presents with shortness of breath and fatigue. Shortness of breath ddx: concern for CHF given elevated BNP and hypoxia. We'll hold off on fluids. Troponin at baseline, patient is paced on EKG. Also concern for pneumonia given cough, history of chronic bronchitis and history of immunocompromise. Patient was given azithromycin and ceftriaxone. Given the patient is recently postsurgical, we'll check a CTA of the chest. - Diagnoses Provider Diagnoses: Difficulty breathing, Fatigue Discharge ED - Sign-Out/Discharge Documenting (check all that apply): Patient Departure - Discharge Plan Condition: Stable Disposition: ADMITTED TO [facility] - Billing Disposition and Condition Condition: STABLE Disposition: Admitted to [facility] - Attestation Statements Document Initiated by Scribe: Yes Documenting Scribe: Trini Blanchard Provider For Whom Scribe is Documenting (Include Credential): Kristel Negron MD. Scribe Attestation: ITrini, scribed for Kristel Negron MD. on 06/21/19 at 1038. Scribe Documentation Reviewed: Yes Provider Attestation: The documentation as recorded by the scribeTrini accurately reflects the service I personally performed and the decisions made by , Kristel Negron MD. Status of Scribe Document: Viewed Consult Consult: 2022 - I spoke with Dr. Wheeler who would like the pt to get her CTA prior to admission.
[2019-06-20] MEDS ORDERED: cefTRIAXone(*) 1 GM in NS 0.9% 50 ML* 50 ML IVPB ONE (20:09)
[2019-06-20] MEDS ORDERED: Azithromycin 500 mg/250 ml NS 500 MG/250 ML BAG IVPB ONE (20:10)
[2019-06-20] MEDS ORDERED: Iodixanol* (CONTRAST) 320 MG/ML 100 ML SDV IV ONE (20:23)
[2019-06-21 00:48] LABS: Urine Appearance Clear; Urine Bilirubin Negative (Negative); Urine Blood Negative (Negative); Urine Color Yellow; Urine Glucose Negative (Negative); Urine Ketones Negative (Negative); Urine Nitrite Negative (Negative); Urine Protein Negative (Negative); Urine Urobilinogen Negative (Negative)
[2019-06-21] MEDS ORDERED: Albuterol 2.5 MG/3 ML NEB.SOL* (0.083%) INH PRN (01:24)
[2019-06-21] MEDS ORDERED: HYDROmorphone TAB* 4 MG PO PRN (01:24)
[2019-06-21 01:51] LABS: Troponin I 0.04 ng/mL (<0.04)
[2019-06-21 04:15] LABS: ABS Eosinophils 0.2 10^3/ul (0-0.6); ABS Monocytes 0.8 10^3/ul (0-0.8); ABS Neutrophils 7.4 10^3/ul (1.5-7.7); Eosinophil % 2.6 %; Hematocrit 28 % (35-47); Hemoglobin 9.7 g/dL (12.0-16.0); Lymphocyte % 10.3 %; Mean Corpuscular HGB Conc 35 g/dL (31-36); Mean Corpuscular Hemoglobin 31 pg (27-31); Mean Corpuscular Volume 87 fL (80-97); Platelet Count 153 10^3/uL (150-450); Red Blood Count 3.18 10^6 /uL (3.70-4.87); Red Cell Distribution Width 15 % (10-15); White Blood Count 9.5 10^3/uL (3.5-10.8)
[2019-06-21] MEDS: methylPREDNISolone SOD 40 MG* 1 ML VIAL IV SCH ×2 (04:30→07:47)
[2019-06-21 04:47] LABS: Troponin I 0.04 ng/mL (<0.04)
--- NOTE | 2019-06-21 05:18 | HP ---
CC: Dr. Candace Lopez * ADMISSION HISTORY AND PHYSICAL: DATE OF ADMISSION: 06/21/19 PRIMARY CARE PHYSICIAN: Dr. Candace Lopez. INFECTIOUS DISEASES: Dr. Nicola García. CARDIOLOGY: Dr. Reji Hampton. CHIEF COMPLAINT: Generalized weakness and fever. HISTORY OF PRESENT ILLNESS: This is a 78-year-old female with past medical history of hypertension, AFib, status post permanent pacemaker recently, psoriatic arthritis, common variable agammaglobulinemia and immune deficiency, hypothyroidism, aortic stenosis, status post bovine aortic valve replacement, depression, history of MRSA, recently had a valve replacement and stent to the LAD in May of 2019, came in due to generalized weakness and fever. The patient stated that she was in her usual state of health; however, for the last 1 week, she has had increasing shortness of breath and cough. Cough is productive of now yellowish sputum, and she also noticed that normally she uses a motorized wheelchair with intermittent use of her walker and she felt very fatigued when she was using her walker to go to the bathroom and even her was unable to help her and assist her, so they finally decided to come to the ER. The patient otherwise offers no chest pain. No abdominal pain. No nausea, vomiting, or diarrhea. No urinary burning sensation or pain with urination. She does state that she has a history of chronic bronchitis, for which she usually takes antibiotics and prednisone, which seems to help her symptoms to resolve. 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 PAST SURGICAL HISTORY: Includes pacemaker insertion with a single wire in May 2019, drug-eluting stent to the left anterior descending artery also in May 2019, and transcatheter aortic valve replacement with 22 mm LAURA 3 valve in May 2019, myringotomy in November 2018, artificial left ankle implant of the left foot in May 2017, removal of hardware in the left foot in November 2016, repair of fracture in the right humerus in June 2015, mastectomy of the right breast in April 2015, second revision of the right elbow in January 2014, right elbow revision removed in March 2013, first revision of right elbow in 2011, right elbow debridement in 2010, lumpectomy of the right breast in 2011, in 2009 had a finger joint fusion, left foot and ankle reconstruction in 2008, left total knee replacement in 2007, right total elbow replacement in 1999, right total knee replacement in 1997, benign spinal tumor removed in 1995. Morphine pump implanted in 1993, replaced in 1995, and removed in 1997. Multiple bunionectomies of her feet, spinal fusion surgeries, tubal ligation, laminectomy x2, appendectomy, and tonsillectomy. HOME MEDICATIONS: The patient is currently on: 1. Telmisartan 40 mg every evening. 2. Dulera 2 puffs inhalation as needed. 3. ProAir 1 puff daily as needed. 4. Cymbalta 50 mg daily at bedtime. 5. Cyanocobalamin 1000 mcg oral daily. 6. Amitriptyline 25 mg daily at bedtime. 7. Ventolin via nebulization 2.5 mg q.4 hours p.r.n. 8. Lisinopril 40 mg oral daily. 9. Bactrim 400/80 one tablet oral daily at bedtime. 10. Hydralazine 15 mg p.o. t.i.d. 11. Multivitamins 1 tablet every morning. 12. Vitamin D 2000 units every morning. 13. Prednisone 40 mg every morning. 14. Montelukast 10 mg every morning. 15. Stool softener 250 mg p.o. every morning. 16. Toprol-XL 25 mg every morning. 17. Breo Ellipta 1 puff by inhalation every morning. 18. Plavix 75 mg oral daily. 19. Eliquis 5 mg p.o. b.i.d. 20. Amlodipine 10 mg oral daily. 21. Plaquenil 200 mg p.o. b.i.d. 22. Levothyroxine 137 mcg oral every morning. 23. Hydromorphone extended release 12 mg p.o. b.i.d. 24. Hydromorphone regular 4 mg p.o. q.4 hours p.r.n. ALLERGIES: The patient is documented to have allergies to AZATHIOPRINE which causes a rash, METHOTREXATE which causes BOOP, VANCOMYCIN causes red man syndrome, CHLORHEXIDINE causes rash and itching, and ADHESIVE TAPE also causes rash and scars but okay with Tegaderm or paper tape. FAMILY HISTORY: Mother had a history of pacemaker. Father had a history of coronary artery disease. No reported history of diabetes or cancer. SOCIAL HISTORY: Smoking: The patient reports quitting smoking several years ago. Denies any drug or alcohol use. Her surrogate decision maker is her Mg, and she is otherwise full code. REVIEW OF SYSTEMS: A 14-point review of systems did not reveal any new information other than what is mentioned in the HPI. PHYSICAL EXAMINATION GENERAL: The patient is awake, alert, oriented x3, did not appear to be in any acute respiratory distress. VITAL SIGNS: In the ER, temperature max was noted to be 101 degrees Fahrenheit , BP was noted to be 146/89, heart rate 72, respiration rate 18, saturating 98% on 2 L nasal cannula. HEAD AND NECK: Atraumatic, normocephalic. Bilateral pupils are reactive. Oral mucosa was moist. Neck: Supple. No jugular venous distention. LUNGS: The patient had bibasilar rhonchi. HEART: S1, S2. Regular rate and rhythm with systolic murmur heard. ABDOMEN: Soft, nontender, nondistended. EXTREMITIES: No cyanosis, clubbing, or edema. DIAGNOSTIC STUDIES/LAB DATA: CBC shows minimally elevated white count of 11.3. Hemoglobin, hematocrit, and platelets were within normal limits. Comprehensive metabolic panel shows hyponatremia with sodium of 127, chloride decreased at 96, random glucose minimally elevated at 111. BNP was noted to be 290. Random troponin minimally elevated at 0.04, which seems to be her baseline even on previous admission. CTA showed no acute pulmonary embolic disease, multilevel infiltrate consistent with an infectious and/or inflammatory process associated with hilar and mediastinal adenopathy. Small right pleural effusion, right mastectomy with partial deflation of the right breast implant. Cardiomegaly with an aortic stent and severe coronary calcification. No evidence of left-sided congestive heart failure. EKG shows ventricularly paced rhythm at 77 beats per minute. Previous EKG was without a pacemaker and was showing AFib/flutter at 81 beats per minute. IMPRESSION: This is a 78-year-old female with multiple medical problems, here due to generalized weakness and fatigue, noted to have fever, minimally elevated white blood cell count, and CT chest suggestive of possible infection, etiology possibly pneumonia. ASSESSMENT AND PLAN: 1. Sepsis given elevated white count and fever secondary to pneumonia. We will start the patient on Zosyn and also considered vancomycin given the allergy listed is just red man syndrome and is okay infusing at a slow rate. The patient was, however, difficult IV access, so we will order a PICC line insertion and hold the antibiotics until the PICC line is inserted tomorrow morning. If in the meantime a MRSA screen is negative, we could consider not initiating vancomycin and only doing Zosyn. The patient already got a dose of ceftriaxone in the ER, which should cover her for now. 2. History of chronic obstructive pulmonary disease. We will also add Solu- Medrol given her respiratory distress and requirement of oxygen and slowly titrate her oxygen off. 3. Coronary artery disease, status post recent stent. Continue Plavix. 4. History of atrial fibrillation. Continue Eliquis. 5. History of hypothyroidism. Continue levothyroxine. 6. History of hypertension. Resume home blood pressure medication. 7. History of chronic pain. Restart home doses of her Dilaudid. 8. History of aortic stenosis, status post replacement. 9. History of congestive heart failure. We will monitor for any evidence of heart failure. 10. DVT prophylaxis: The patient is already on Eliquis. 11. Code status: The patient is full code with her Mg being her surrogate decision maker. [id number]/CPS #: [id number]
[2019-06-21] MEDS: Levothyroxine TAB* 137 MCG TAB PO SCH (05:23)
[2019-06-21] MEDS: Mometasone/Formoter 200/5 MDI INH SCH ×2 (07:57→19:48)
[2019-06-21 08:08] LABS: Troponin I 0.04 ng/mL (<0.04)
[2019-06-21] MEDS ORDERED: HYDROmorphone TAB* 2 MG PO PRN (08:32)
[2019-06-21] MEDS ORDERED: amLODIPine TAB* 5 MG PO SCH (09:00)
[2019-06-21] MEDS ORDERED: methylPREDNISolone SOD 40 MG* 1 ML VIAL IV SCH (09:30)
[2019-06-21] MEDS ORDERED: Piperacillin/Tazobac ADVAN(*) 3.375 GM in NS 0.9% 100 ML* 100 ML IVPB ONE (10:00)
[2019-06-21 10:25] LABS: Anion Gap 9 mmol/L (2-11); BUN/Creatinine Ratio 13.2 (8-20); Blood Urea Nitrogen 7 mg/dL (6-24); CO2 Carbon Dioxide 22 mmol/L (22-32); Calcium 8.2 mg/dL (8.6-10.3); Chloride 99 mmol/L (101-111); EGFR Non-African American 111.6 (>60); Glucose 92 mg/dL (70-100); Potassium 3.4 mmol/L (3.5-5.0); Sodium 130 mmol/L (135-145)
[2019-06-21] MEDS: Hydroxychloroquine TAB* 200 MG PO SCH ×2 (11:42→21:01)
[2019-06-21] MEDS: hydrALAZINE TAB* 10 MG PO SCH ×3 (11:42→21:01)
[2019-06-21] MEDS: HYDROmorphone TAB* 4 MG PO SCH ×3 (11:43→21:00)
[2019-06-21] MEDS: Docusate CAP* 100 MG PO SCH (11:43)
[2019-06-21] MEDS: Atorvastatin* 40 MG TAB PO SCH (11:43)
[2019-06-21] MEDS: Cyanocobalamin TAB* 500 MCG PO SCH (11:44)
[2019-06-21] MEDS: Multivitamins/Minerals TAB PO SCH (11:44)
[2019-06-21] MEDS: Montelukast Sodium TAB* 10 MG PO SCH (11:44)
[2019-06-21] MEDS: Clopidogrel TAB* 75 MG PO SCH (11:45)
[2019-06-21] MEDS: Metoprolol Succinate XL TAB* 25 MG PO SCH (11:45)
[2019-06-21] MEDS: Apixaban* 5 MG TAB PO SCH ×2 (11:45→21:00)
[2019-06-21] MEDS ORDERED: ZOSYN 3.375 GM x ONE DOSE over 30 miuntes IVPB ×2 (12:00)
[2019-06-21] MEDS ORDERED: ZOSYN 3.375 GM Q8H per EXTENDED INFUSION IVPB SCH ×2 (12:00)
[2019-06-21] MEDS ORDERED: Zosyn per Pharmacy* NOTE FOLLOW UP SCH (12:00)
[2019-06-21] MEDS: Cholecalciferol TAB* 1000 UNITS PO SCH (12:11)
[2019-06-21] MEDS ORDERED: Vancomycin(*) 1,250 MG in NS 0.9% 250 ML* 250 ML IVPB ONE (14:30)
[2019-06-21] MEDS ORDERED: Vancomycin per Pharmacy* NOTE FOLLOW UP SCH (15:00)
[2019-06-21] MEDS: Cefepime 2 GM in Dextrose(*) 2 GM/50 ML BAG IV SCH ×2 (15:27→23:24)
--- NOTE | 2019-06-21 16:42 | ECHO ---
*[facility]* [place] [address] Fax #: [phone] Transthoracic Echocardiogram Patient: Dana Gusman : 1940 Study Date: 06/21/2019 Age: 78 Gender: F HR: 72 bpm Height: 63 in /160 cm BSA: 1.79 m^2 Weight: 165.7 lb /75.3 kg BMI: 29.4 kg/m^2 *Inspector Packer: * Ina Gordon [facility] *Referring Physician: * Rob Farfan *Reading Physician: * Dmitri Gaston MD Indications: Aortic Valve Disorder. History: Atrial fibrillation. Congestive heart failure. Aortic stenosis. Chronic obstructive pulmonary disease. Risk factors: Hypertension. Labs, prior tests, procedures, and surgery: Transvascular aortic valve replacement. Catheterization with coronary intervention. Permanent pacemaker system implantation. Conclusions Summary: - Impressions: The study is unchanged since the study of 06/08/2019 except for the presence of a pacemaker. - Left ventricle: The cavity size is normal. Wall thickness is mildly increased. Systolic function is normal. The estimated ejection fraction is 55-60%. - Right ventricle: The cavity size is mildly dilated. Systolic pressure is moderately increased. - Left atrium: The atrium is severely dilated. - Right atrium: The atrium is moderately dilated. - Mitral valve: The Mitral valve annulus appears mildly calcified. The leaflets are mildly thickened. The findings are consistent with mild stenosis. There is mild regurgitation. - Aortic valve: There is a bioprosthetic valve. Grossly normal function by suboptimal 2d and doppler. There is trace regurgitation. It is paravalvular at the 8 o'clock position in the short axis view.There are also trivial jets at 10 and 1 o'clock. - Tricuspid valve: There is moderate regurgitation. Recommendations: No obvious vegetations. If there is a high index of suspicion for subacute bacterial endocarditis, consider transesophageal echocardiogram. Study data: Transthoracic echocardiogram. Procedure: Transthoracic echocardiography was performed. Image quality was fair. Complete 2D, spectral Doppler, and color flow Doppler. Location: Bedside. Patient status: Inpatient. Patient room number: 450-01. The previous study was not available, so comparison is made to the report of 06/08/2019. Rhythm: Paced rhythm. Findings Left ventricle: The cavity size is normal. Wall thickness is mildly increased. There is moderate focal septal base hypertrophy. Systolic function is normal. The estimated ejection fraction is 55-60%. Wall motion is normal; there are no regional wall motion abnormalities. Left ventricular diastolic function parameters are indeterminate. Right ventricle: The cavity size is mildly dilated. Pacer wire noted in the right ventricle. Systolic function is normal. Systolic pressure is moderately increased. Left atrium: The atrium is severely dilated. Right atrium: The atrium is moderately dilated. Pacer wire noted in right atrium. Mitral valve: The Mitral valve annulus appears mildly calcified. The leaflets are mildly thickened. There is no evidence of a vegetation. The findings are consistent with mild stenosis. There is mild regurgitation. Aortic valve: Not well visualized. There is a bioprosthetic valve. Grossly normal function by suboptimal 2d and doppler. Cannot exclude a vegetation. There is no evidence of stenosis. There is trace regurgitation. It is paravalvular at the 8 o'clock position in the short axis view.There are also trivial jets at 10 and 1 o'clock. Tricuspid valve: The leaflets are normal thickness. There is no evidence of a vegetation. There is no evidence of stenosis. There is moderate regurgitation. Pulmonic valve: The leaflets are normal thickness. There is no evidence of a vegetation. There is no evidence of stenosis. There is trace regurgitation. Aorta: Aortic root: The aortic root is mildly dilated. Ascending aorta: The ascending aorta is mildly dilated. Aortic arch: The aortic arch is appears normal. Pericardium: There is no significant pericardial effusion. Pulmonary arteries: The main pulmonary artery is normal-sized. Systolic pressure is moderately increased. Systemic veins: Inferior vena cava: The vessel is at the upper limits of normal in size. There is (>= 50%) respiratory change in the IVC dimension. Measurements Left ventricle Value Ref Aortic valve Value Ref ALONA, LAX 4.1 cm 3.8 - 5.2 Yasmine diam, ED 1.7 cm ----- ESD, LAX 2.9 cm 2.2 - 3.5 Peak v, S 2.8 m/sec ----- FS, LAX 30 % 27 - 45 VTI, S 50.0 cm ----- PW, ED, LAX (H) 1.1 cm 0.6 - 0.9 Mean grad, S 15.0 mm Hg ----- FS 30 % 27 - 45 Peak grad, S 31.4 mm Hg ----- PW, ED (H) 1.1 cm 0.6 - 0.9 LVOT/AV, VTI ratio 0.38 ----- PW/ID, ED 0.28 BERNARDA, VTI 1.19 cm^2 ----- E', lat yasmine, TDI (L) 8.5 cm/sec >=10.0 BERNARDA, Vmax 1.12 cm^2 --- -- E/e', lat yasmine, 19 TDI Mitral valve Value Ref E', med yasmine, TDI 7.1 cm/sec >=7.0 Peak E 1.62 m/sec --- -- E/e', med yasmine, 23 Decel time 292 ms ----- TDI PHT 166 ms ----- E', avg, TDI 7.8 cm/sec Mean grad, D 4.0 mm Hg ----- E/e', avg, TDI (H) 21 <=14 Peak grad, D 13.0 mm Hg --- -- MVA, PHT 1.3 cm^2 ----- LVOT Value Ref Diam, S 2.00 cm Pulmonic valve Value Ref Area 3.1 cm^2 Peak v, S 0.91 m/sec ----- Peak jonas, S 1 m/sec Peak grad, S 3.0 mm Hg ----- VTI, S 19.0 cm Mean grad, S 2 mm Hg Tricuspid valve Value Ref SV 60 ml TR peak v (H) 3.1 m/sec <=2.8 SV/bsa 34 ml/m^2 Peak RV-RA grad, S 38 mm Hg ----- Ventricular septum Value Ref Aortic root Value Ref IVS, ED (H) 1.4 cm 0.6 - 0.9 Root diam (H) 4.0 cm <4.0 Root max diam, ED (H) 4.0 cm <4.0 Right ventricle Value Ref ALONA, LAX 4.4 cm Ascending aorta Value Ref ALONA minor ax, A4C (H) 4.0 cm 1.9 - 3.5 AAo AP diam, S 3.6 cm ----- mid Pressure, S 46 mm Hg Aortic arch Value Ref Arch diam 2.2 cm ----- Left atrium Value Ref AP dim, ES (H) 4.60 cm 2.70 - Decending aorta Value Ref 3.80 Pamela peak jonas 0.71 m/sec ----- ML dim, A4C 4.9 cm SI dim, A4C 6.5 cm Pulmonary artery Value Ref Vol/bsa, ES, 1-p (H) 46 ml/m^2 11 - 40 Pressure, S 43.0 mm Hg ----- A4C Vol/bsa, ES, A/L (H) 62 ml/m^2 16 - 34 Inferior vena cava Value Ref Diam 2.1 cm ----- Right atrium Value Ref SI dim, ES (H) 5.8 cm 3.4 - 5.3 ML dim, ES, A4C (H) 4.5 cm 2.6 - 4.4 SI dim, ES, A4C (H) 5.8 cm 3.4 - 5.3 Estimated RAP 8 mm Hg Legend: (L) and (H) marin values outside specified reference range. Prepared and electronically signed by Dmitri Gaston MD 06/21/2019 16:41
[2019-06-21] MEDS: Losartan TAB* 25 MG PO SCH (17:47)
--- NOTE | 2019-06-21 18:05 | PN ---
Subjective Date of Service: 06/21/19 Interval History: HD 1 on 06/21 patient complains of cough- productive- blood tinged denies fever, chest pain Objective Active Medications: Albuterol (Ventolin 2.5 Mg/3 Ml Neb.Samreen*) 2.5 mg INH Q4H PRN PRN Reason: SHORTNESS OF BREATH Amitriptyline HCl (Elavil Tab*) 25 mg PO BEDTIME [facility] Apixaban (Eliquis*) 5 mg PO BID [facility] Last Admin: 06/21/19 11:45 Dose: 5 mg Atorvastatin Calcium (Lipitor*) 40 mg PO DAILY [facility] Last Admin: 06/21/19 11:43 Dose: 40 mg Cholecalciferol (Vitamin D Tab*) 2,000 units PO QAM [facility] Last Admin: 06/21/19 12:11 Dose: 2,000 units Clopidogrel Bisulfate (Plavix Tab*) 75 mg PO DAILY [facility] Last Admin: 06/21/19 11:45 Dose: 75 mg Cyanocobalamin (Vitamin B12 Tab*) 1,000 mcg PO DAILY [facility] Last Admin: 06/21/19 11:44 Dose: 1,000 mcg Docusate Sodium (Colace Cap*) 200 mg PO QAM [facility] Last Admin: 06/21/19 11:43 Dose: 200 mg Duloxetine HCl (Cymbalta Cap*) 60 mg PO BEDTIME [facility] Hydralazine HCl (Apresoline Tab*) 15 mg PO TID [facility] Last Admin: 06/21/19 15:33 Dose: 15 mg Hydromorphone HCl (Dilaudid Tab*) 4 mg PO Q6H [facility] Last Admin: 06/21/19 15:25 Dose: 4 mg Hydromorphone HCl (Dilaudid Tab*) 6 mg PO Q4H PRN PRN Reason: PAIN Hydroxychloroquine Sulfate (Plaquenil Tab*) 200 mg PO BID [facility] Last Admin: 06/21/19 11:42 Dose: 200 mg Azithromycin (Zithromax 500 Mg/250 Ml) 500 mg in 250 mls @ 250 mls/hr IVPB Q24H [facility] Stop: 06/22/19 21:59 Cefepime HCl (Maxipime 2 Gm In Dextrose Duplex (*)) 2 gm in 50 mls @ 100 mls/ hr IV Q8H [facility] Last Admin: 06/21/19 15:27 Dose: 100 mls/hr Vancomycin HCl 1,000 mg/ (Sodium Chloride) 250 mls @ 83.333 mls/hr IV Q12H [facility] Levothyroxine Sodium (Synthroid Tab*) 137 mcg PO QAM@0600 [facility] Last Admin: 06/21/19 05:23 Dose: 137 mcg Losartan Potassium (Cozaar Tab*) 50 mg PO QPM [facility]; Protocol Last Admin: 06/21/19 17:47 Dose: 50 mg Metoprolol Succinate (Toprol Xl Tab*) 25 mg PO QAM [facility] Last Admin: 06/21/19 11:45 Dose: 25 mg Mometasone Furoate/Formoterol Fumar (Dulera 200/5 Mdi*) 2 puff INH BID [facility] Last Admin: 06/21/19 07:57 Dose: 2 puff Montelukast Sodium (Singulair Tab*) 10 mg PO QAM [facility] Last Admin: 06/21/19 11:44 Dose: 10 mg Multivitamins/Minerals (Theragran/Minerals Tab*) 1 tab PO QAM [facility] Last Admin: 06/21/19 11:44 Dose: 1 tab Pharmacy Consult (Vancomycin Per Pharmacy*) 1 note FOLLOW UP .VANC PER PHARMACY [facility]; Protocol Pharmacy Profile Note (Vancomycin Trough Check) 1 note FOLLOW UP 1530 ONE Stop: 06/23/19 15:31 Trimethoprim/Sulfamethoxazole (Bactrim Ss 400/80 Tab*) 1 tab PO BEDTIME [facility] Vital Signs - 8 hr 06/21/19 06/21/19 06/21/19 11:34 11:43 14:05 Temperature 99.9 F Pulse Rate 73 Respiratory 20 18 17 Rate Blood Pressure 143/73 (mmHg) O2 Sat by Pulse 99 Oximetry 06/21/19 06/21/19 06/21/19 15:10 15:17 15:25 Temperature 99.2 F Pulse Rate 72 Respiratory 18 17 Rate Blood Pressure 132/56 (mmHg) O2 Sat by Pulse 99 Oximetry 06/21/19 17:48 Temperature Pulse Rate Respiratory 17 Rate Blood Pressure (mmHg) O2 Sat by Pulse Oximetry Oxygen Devices in Use Now: Nasal Cannula Exam: Patientis lying on a bed with no acut distress HEENT: Normocephalic and atraumatic Lungs: Coarse crackles heard in both lungs Heart: S1/S2 heard with murmur Abdomen: Soft, nondistended and nontender Extremities: Mild pitting edema Nuero: alert, conscious and oriented Result Diagrams: 06/21/19 03:59 06/21/19 03:59 Additional Lab and Data: Lab Results 06/20/19 06/20/19 06/20/19 Range/Units 18:42 18:42 18:42 WBC 11.3 H (3.5-10.8) 10^3/uL RBC 3.42 L (3.70-4.87) 10^6 /uL Hgb 10.2 L (12.0-16.0) g/dL Hct 31 L (35-47) % MCV 90 (80-97) fL MCH 30 (27-31) pg MCHC 33 (31-36) g/dL RDW 15 (10-15) % Plt Count 185 (150-450) 10^3/uL MPV 7.1 L (7.4-10.4) fL Neut % (Auto) 81.2 % Lymph % (Auto) 9.8 % [place] % (Auto) 6.6 % Eos % (Auto) 2.3 % Baso % (Auto) 0.1 % Absolute Neuts (auto) 9.2 H (1.5-7.7) 10^3/ul Absolute Lymphs (auto) 1.1 (1.0-4.8) 10^3/ul Absolute Monos (auto) 0.7 (0-0.8) 10^3/ul Absolute Eos (auto) 0.3 (0-0.6) 10^3/ul Absolute Basos (auto) 0.0 (0-0.2) 10^3/ul Absolute Nucleated RBC 0.0 10^3/ul Nucleated RBC % 0.0 Sodium 127 L (135-145) mmol/L Potassium 4.2 (3.5-5.0) mmol/L Chloride 96 L (101-111) mmol/L Carbon Dioxide 24 (22-32) mmol/L Anion Gap 7 (2-11) mmol/L BUN 10 (6-24) mg/dL Creatinine 0.69 (0.51-0.95) mg/dL Est GFR ( Amer) 99.6 (>60) Est GFR (Non-Af Amer) 82.3 (>60) BUN/Creatinine Ratio 14.5 (8-20) Glucose 111 H (70-100) mg/dL Calcium 8.9 (8.6-10.3) mg/dL Total Bilirubin 0.70 (0.2-1.0) mg/dL AST 30 (13-39) U/L ALT 15 (7-52) U/L Alkaline Phosphatase 63 (34-104) U/L Troponin I 0.04 H* (<0.04) ng/mL B-Natriuretic Peptide 290 H (<=100) pg/mL Total Protein 6.1 L (6.4-8.9) g/dL Albumin 3.8 (3.2-5.2) g/dL Globulin 2.3 (2-4) g/dL Albumin/Globulin Ratio 1.7 (1-3) Assess/Plan/Problems-Billing Assessment: 78 y/o F with multiple medical history significant for recent aortic valve replacement and pacemaker insertion and stent placement presented with generalized weakness and fatigue and cough. Noted to have fever, leucocytosis and imaging showing infiltrates. +/- sepsis has her HR was just 90. on vanco, cefepime and azithro - Patient Problems (1) Sepsis Current Visit: Yes Status: Acute Comment: -borderline -fever and hr of 90 -secondary to pneumonia -got IVF -now resolved (2) Pneumonia Current Visit: Yes Status: Acute Code(s): J18.9 - PNEUMONIA, UNSPECIFIED ORGANISM SNOMED Code(s): 552158871 Comment: - has bilateral pneumonia -she was recently d/c from [place] 1 weeek ago and her symptom started at that time. most likley HAP -we will ocver broadly with vanc, cefepime and azithro(day2 on 06/21) -urine negative for legionella and strep -sputum culture pending (3) Hypertension Current Visit: No Status: Acute Code(s): I10 - ESSENTIAL (PRIMARY) HYPERTENSION SNOMED Code(s): 13774619 Comment: -bp controlled -continue home losartan (4) Hyponatremia Current Visit: No Status: Acute Code(s): E87.1 - HYPO-OSMOLALITY AND HYPONATREMIA SNOMED Code(s): 38692055 Comment: -moderate -has chronic hyponatremia -could from infection; legionella negative though -could be from dehydration -will monitor (5) COPD with chronic bronchitis Current Visit: No Status: Chronic Code(s): J44.9 - CHRONIC OBSTRUCTIVE PULMONARY DISEASE, UNSPECIFIED SNOMED Code(s): 749715599 Comment: -no acute exacerbation -no wheezing -continue home inhalers (6) CVID (common variable immunodeficiency) Current Visit: No Status: Chronic Code(s): D83.9 - COMMON VARIABLE IMMUNODEFICIENCY, UNSPECIFIED SNOMED Code(s): 72860310 Comment: -not an active issue. -might increase chance of infection though monitor closely (7) Aortic valve replaced Current Visit: Yes Status: Acute Code(s): Z95.2 - PRESENCE OF PROSTHETIC HEART VALVE SNOMED Code(s): 8758658720092 Comment: -recently done in [place] -d/c 1 week ago -along with pacemaker insertion and stent placement -high risk for endocarditis; suspicion low -we will order TTE -we will treat her pneumonia first; if she doesnot improve then will consider RAUL (8) Chronic pain Current Visit: No Status: Chronic Priority: High Code(s): G89.29 - OTHER CHRONIC PAIN SNOMED Code(s): 45665150 Comment: -hs chronic pain -continue dilaudid (9) Hypothyroid Current Visit: No Status: Chronic Code(s): E03.9 - HYPOTHYROIDISM, UNSPECIFIED SNOMED Code(s): 31636971 Comment: Continue current dose of synthroid. (10) DVT prophylaxis Current Visit: No Status: Acute Code(s): RGM1285 - SNOMED Code(s): 466297747 Comment: Marisel -restart tomorrow Status and Disposition: Inpatient Attending: Fito Urrutia Attestation Documenting Resident: Rob Farfan Supervising Physician: Fito Urrutia Attestation: This service has been performed in part by a resident under the direction of a teaching physician.I, Fito Urrutia, performed the service, or was physically present during the critical, or mclaughlin portions of the service, furnished by the resident. I participated in the management of the patient.
[2019-06-21] MEDS: Sulfamethox/Trimethoprim SS 400/80* TAB PO SCH (21:00)
[2019-06-21] MEDS: DULoxetine DR CAP* 60 MG CAP.DR PO SCH (21:00)
[2019-06-21] MEDS: Amitriptyline TAB* 25 MG PO SCH (21:01)
[2019-06-21] MEDS: Azithromycin 500 mg/250 ml NS 500 MG/250 ML BAG IVPB SCH (21:14)
[2019-06-22] MEDS: HYDROmorphone TAB* 4 MG PO SCH ×3 (03:56→14:02)
[2019-06-22 04:32] LABS: ABS Eosinophils 0.3 10^3/ul (0-0.6); ABS Lymphocytes 0.7 10^3/ul (1.0-4.8); ABS Monocytes 0.6 10^3/ul (0-0.8); ABS Neutrophils 4.9 10^3/ul (1.5-7.7); Hematocrit 26 % (35-47); Hemoglobin 9.1 g/dL (12.0-16.0); Lymphocyte % 11.3 %; Mean Corpuscular HGB Conc 34 g/dL (31-36); Mean Corpuscular Hemoglobin 30 pg (27-31); Mean Corpuscular Volume 87 fL (80-97); Mean Platelet Volume 6.9 fL (7.4-10.4); Platelet Count 143 10^3/uL (150-450); Red Blood Count 3.04 10^6 /uL (3.70-4.87); Red Cell Distribution Width 15 % (10-15); White Blood Count 6.5 10^3/uL (3.5-10.8)
[2019-06-22] MEDS: Vancomycin(*) 1,000 MG in NS 0.9% 250 ML* 250 ML IV SCH ×2 (04:32→15:51)
[2019-06-22 04:48] LABS: BUN/Creatinine Ratio 12.2 (8-20); Calcium 8.4 mg/dL (8.6-10.3); EGFR African American 147.8 (>60); EGFR Non-African American 122.1 (>60); Potassium 3.5 mmol/L (3.5-5.0)
[2019-06-22] MEDS: Levothyroxine TAB* 137 MCG TAB PO SCH (06:30)
--- NOTE | 2019-06-22 06:43 | PN ---
Subjective Date of Service: 06/22/19 Interval History: HD 2 on 06/22 No acute overnight events VS stable Complains of back pain-chronic in nature Cough improving. requiring 2L of oxygen Denies SOB, fever, chest pain Objective Active Medications: Albuterol (Ventolin 2.5 Mg/3 Ml Neb.Samreen*) 2.5 mg INH Q4H PRN PRN Reason: SHORTNESS OF BREATH Amitriptyline HCl (Elavil Tab*) 25 mg PO BEDTIME [facility] Last Admin: 06/21/19 21:01 Dose: 25 mg Apixaban (Eliquis*) 5 mg PO BID [facility] Last Admin: 06/21/19 21:00 Dose: 5 mg Atorvastatin Calcium (Lipitor*) 40 mg PO DAILY [facility] Last Admin: 06/21/19 11:43 Dose: 40 mg Cholecalciferol (Vitamin D Tab*) 2,000 units PO QAM [facility] Last Admin: 06/21/19 12:11 Dose: 2,000 units Clopidogrel Bisulfate (Plavix Tab*) 75 mg PO DAILY [facility] Last Admin: 06/21/19 11:45 Dose: 75 mg Cyanocobalamin (Vitamin B12 Tab*) 1,000 mcg PO DAILY [facility] Last Admin: 06/21/19 11:44 Dose: 1,000 mcg Docusate Sodium (Colace Cap*) 200 mg PO QAM [facility] Last Admin: 06/21/19 11:43 Dose: 200 mg Duloxetine HCl (Cymbalta Cap*) 60 mg PO BEDTIME [facility] Last Admin: 06/21/19 21:00 Dose: 60 mg Hydralazine HCl (Apresoline Tab*) 15 mg PO TID [facility] Last Admin: 06/21/19 21:01 Dose: 15 mg Hydromorphone HCl (Dilaudid Tab*) 4 mg PO Q6H [facility] Last Admin: 06/22/19 03:56 Dose: 4 mg Hydromorphone HCl (Dilaudid Tab*) 6 mg PO Q4H PRN PRN Reason: PAIN Hydroxychloroquine Sulfate (Plaquenil Tab*) 200 mg PO BID [facility] Last Admin: 06/21/19 21:01 Dose: 200 mg Azithromycin (Zithromax 500 Mg/250 Ml) 500 mg in 250 mls @ 250 mls/hr IVPB Q24H [facility] Stop: 06/22/19 21:59 Last Admin: 06/21/19 21:14 Dose: 250 mls/hr Cefepime HCl (Maxipime 2 Gm In Dextrose Duplex (*)) 2 gm in 50 mls @ 100 mls/ hr IV Q8H [facility] Last Admin: 06/21/19 23:24 Dose: 100 mls/hr Vancomycin HCl 1,000 mg/ (Sodium Chloride) 250 mls @ 83.333 mls/hr IV Q12H [facility] Last Admin: 06/22/19 04:32 Dose: 83.333 mls/hr Levothyroxine Sodium (Synthroid Tab*) 137 mcg PO QAM@0600 [facility] Last Admin: 06/22/19 06:30 Dose: 137 mcg Losartan Potassium (Cozaar Tab*) 50 mg PO QPM [facility]; Protocol Last Admin: 06/21/19 17:47 Dose: 50 mg Metoprolol Succinate (Toprol Xl Tab*) 25 mg PO QAM [facility] Last Admin: 06/21/19 11:45 Dose: 25 mg Mometasone Furoate/Formoterol Fumar (Dulera 200/5 Mdi*) 2 puff INH BID [facility] Last Admin: 06/21/19 19:48 Dose: 2 puff Montelukast Sodium (Singulair Tab*) 10 mg PO QAM [facility] Last Admin: 06/21/19 11:44 Dose: 10 mg Multivitamins/Minerals (Theragran/Minerals Tab*) 1 tab PO QAM [facility] Last Admin: 06/21/19 11:44 Dose: 1 tab Pharmacy Consult (Vancomycin Per Pharmacy*) 1 note FOLLOW UP .VANC PER PHARMACY [facility]; Protocol Pharmacy Profile Note (Vancomycin Trough Check) 1 note FOLLOW UP 1530 ONE Stop: 06/23/19 15:31 Trimethoprim/Sulfamethoxazole (Bactrim Ss 400/80 Tab*) 1 tab PO BEDTIME [facility] Last Admin: 06/21/19 21:00 Dose: 1 tab Vital Signs - 8 hr 06/21/19 06/22/19 06/22/19 23:21 00:00 03:20 Temperature 98.0 F 97.5 F Pulse Rate 75 71 Respiratory 18 16 16 Rate Blood Pressure 132/98 136/49 (mmHg) O2 Sat by Pulse 98 96 Oximetry 06/22/19 06/22/19 03:56 06:28 Temperature Pulse Rate Respiratory 20 18 Rate Blood Pressure (mmHg) O2 Sat by Pulse Oximetry Oxygen Devices in Use Now: Nasal Cannula Exam: Patient is lying on a bed with no acute distress HEENT: Normocephalic and atraumatic Lungs: Coarse crackles heard in both lungs Heart: S1/S2 heard with murmur Abdomen: Soft, non-distended and nontender Extremities: Mild pitting edema Neuro: alert, conscious and oriented Result Diagrams: 06/22/19 04:25 06/22/19 04:25 Additional Lab and Data: Lab Results 06/20/19 06/20/19 06/20/19 Range/Units 18:42 18:42 18:42 WBC 11.3 H (3.5-10.8) 10^3/uL RBC 3.42 L (3.70-4.87) 10^6 /uL Hgb 10.2 L (12.0-16.0) g/dL Hct 31 L (35-47) % MCV 90 (80-97) fL MCH 30 (27-31) pg MCHC 33 (31-36) g/dL RDW 15 (10-15) % Plt Count 185 (150-450) 10^3/uL MPV 7.1 L (7.4-10.4) fL Neut % (Auto) 81.2 % Lymph % (Auto) 9.8 % [place] % (Auto) 6.6 % Eos % (Auto) 2.3 % Baso % (Auto) 0.1 % Absolute Neuts (auto) 9.2 H (1.5-7.7) 10^3/ul Absolute Lymphs (auto) 1.1 (1.0-4.8) 10^3/ul Absolute Monos (auto) 0.7 (0-0.8) 10^3/ul Absolute Eos (auto) 0.3 (0-0.6) 10^3/ul Absolute Basos (auto) 0.0 (0-0.2) 10^3/ul Absolute Nucleated RBC 0.0 10^3/ul Nucleated RBC % 0.0 Sodium 127 L (135-145) mmol/L Potassium 4.2 (3.5-5.0) mmol/L Chloride 96 L (101-111) mmol/L Carbon Dioxide 24 (22-32) mmol/L Anion Gap 7 (2-11) mmol/L BUN 10 (6-24) mg/dL Creatinine 0.69 (0.51-0.95) mg/dL Est GFR ( Amer) 99.6 (>60) Est GFR (Non-Af Amer) 82.3 (>60) BUN/Creatinine Ratio 14.5 (8-20) Glucose 111 H (70-100) mg/dL Calcium 8.9 (8.6-10.3) mg/dL Total Bilirubin 0.70 (0.2-1.0) mg/dL AST 30 (13-39) U/L ALT 15 (7-52) U/L Alkaline Phosphatase 63 (34-104) U/L Troponin I 0.04 H* (<0.04) ng/mL B-Natriuretic Peptide 290 H (<=100) pg/mL Total Protein 6.1 L (6.4-8.9) g/dL Albumin 3.8 (3.2-5.2) g/dL Globulin 2.3 (2-4) g/dL Albumin/Globulin Ratio 1.7 (1-3) Assess/Plan/Problems-Billing Assessment: 78 y/o F with multiple medical history significant for recent aortic valve replacement and pacemaker insertion and stent placement presented with generalized weakness and fatigue and cough. Noted to have fever, leucocytosis and imaging showing infiltrates. +/- sepsis has her HR was just 90. on vanco, cefepime and azithro - Patient Problems (1) Sepsis Current Visit: Yes Status: Acute Comment: -resolved (2) Pneumonia Current Visit: Yes Status: Acute Code(s): J18.9 - PNEUMONIA, UNSPECIFIED ORGANISM SNOMED Code(s): 240216389 Comment: - has bilateral pneumonia -she was recently d/c from [place] 1 weeek ago and her symptom started at that time. most likley HAP -we will cover broadly with vanc, cefepime and azithro(day3 on 06/22) -urine negative for legionella and strep -sputum culture pending (3) Hypertension Current Visit: No Status: Acute Code(s): I10 - ESSENTIAL (PRIMARY) HYPERTENSION SNOMED Code(s): 58795669 Comment: -bp controlled -continue home losartan (4) Hyponatremia Current Visit: No Status: Acute Code(s): E87.1 - HYPO-OSMOLALITY AND HYPONATREMIA SNOMED Code(s): 46420988 Comment: -mild; improving -has chronic hyponatremia -will monitor (5) COPD with chronic bronchitis Current Visit: No Status: Chronic Code(s): J44.9 - CHRONIC OBSTRUCTIVE PULMONARY DISEASE, UNSPECIFIED SNOMED Code(s): 554265340 Comment: -no acute exacerbation -no wheezing -continue home inhalers (6) CVID (common variable immunodeficiency) Current Visit: No Status: Chronic Code(s): D83.9 - COMMON VARIABLE IMMUNODEFICIENCY, UNSPECIFIED SNOMED Code(s): 02394141 Comment: -not an active issue. -might increase chance of infection though monitor closely (7) Aortic valve replaced Current Visit: Yes Status: Acute Code(s): Z95.2 - PRESENCE OF PROSTHETIC HEART VALVE SNOMED Code(s): 7022606971479 Comment: -recently done in [place] -d/ 1 week ago -along with pacemaker insertion and stent placement -high risk for endocarditis; suspicion low -TTE negative for vegetation -we will treat her pneumonia first; if she doesnot improve then will consider RAUL (8) Chronic pain Current Visit: No Status: Chronic Priority: High Code(s): G89.29 - OTHER CHRONIC PAIN SNOMED Code(s): 45057456 Comment: -has chronic pain -continue dilaudid -dose adjusted today -Hydromorphone 6 mg every 6 hr scheduled and 4 mg 6 hr prn (9) Hypothyroid Current Visit: No Status: Chronic Code(s): E03.9 - HYPOTHYROIDISM, UNSPECIFIED SNOMED Code(s): 94414245 Comment: Continue current dose of synthroid. (10) DVT prophylaxis Current Visit: No Status: Acute Code(s): ZHD0858 - SNOMED Code(s): 536973376 Comment: -On eliquis Status and Disposition: Inpatient PT recommends mobilization with nsg and will benefit from home PT. Attending: Yodit Jessica Attestation Documenting Resident: Rob Farfan Supervising Physician: Brent Jessica Attestation: This service has been performed in part by a resident under the direction of a teaching physician.I, Brent Jessica, performed the service, or was physically present during the critical, or mclaughlin portions of the service, furnished by the resident. I participated in the management of the patient.
[2019-06-22] MEDS: Mometasone/Formoter 200/5 MDI INH SCH ×2 (07:58→20:25)
[2019-06-22] MEDS: Cefepime 2 GM in Dextrose(*) 2 GM/50 ML BAG IV SCH ×3 (08:21→21:55)
[2019-06-22] MEDS: Clopidogrel TAB* 75 MG PO SCH (08:24)
[2019-06-22] MEDS: Atorvastatin* 40 MG TAB PO SCH (08:24)
[2019-06-22] MEDS: Montelukast Sodium TAB* 10 MG PO SCH (08:24)
[2019-06-22] MEDS: Hydroxychloroquine TAB* 200 MG PO SCH ×2 (08:25→20:02)
[2019-06-22] MEDS: Multivitamins/Minerals TAB PO SCH (08:25)
[2019-06-22] MEDS: Cyanocobalamin TAB* 500 MCG PO SCH (08:25)
[2019-06-22] MEDS: Metoprolol Succinate XL TAB* 25 MG PO SCH (08:25)
[2019-06-22] MEDS: Docusate CAP* 100 MG PO SCH (08:25)
[2019-06-22] MEDS: hydrALAZINE TAB* 10 MG PO SCH ×3 (08:26→20:01)
[2019-06-22] MEDS: Apixaban* 5 MG TAB PO SCH ×2 (08:26→20:02)
[2019-06-22] MEDS: Cholecalciferol TAB* 1000 UNITS PO SCH (08:26)
[2019-06-22] MEDS ORDERED: Acetylcysteine INHALATION SOL* 200 MG/ML NEB.SOLN 10 ML INH PRN (15:39)
[2019-06-22] MEDS: HYDROmorphone TAB* 4 MG PO PRN (17:10)
[2019-06-22] MEDS: Losartan TAB* 25 MG PO SCH (17:10)
[2019-06-22] MEDS: HYDROmorphone TAB* 2 MG PO SCH (20:00)
[2019-06-22] MEDS: Amitriptyline TAB* 25 MG PO SCH (20:02)
[2019-06-22] MEDS: Sulfamethox/Trimethoprim SS 400/80* TAB PO SCH (20:02)
[2019-06-22] MEDS: DULoxetine DR CAP* 60 MG CAP.DR PO SCH (20:02)
[2019-06-22] MEDS: Azithromycin 500 mg/250 ml NS 500 MG/250 ML BAG IVPB SCH (20:38)
[2019-06-23] MEDS: HYDROmorphone TAB* 2 MG PO SCH ×4 (02:15→20:08)
[2019-06-23] MEDS: Vancomycin(*) 1,000 MG in NS 0.9% 250 ML* 250 ML IV SCH ×2 (03:42→17:08)
[2019-06-23] MEDS: Levothyroxine TAB* 137 MCG TAB PO SCH (04:57)
[2019-06-23 05:27] LABS: ABS Eosinophils 0.3 10^3/ul (0-0.6); ABS Monocytes 0.7 10^3/ul (0-0.8); ABS Neutrophils 4.5 10^3/ul (1.5-7.7); Eosinophil % 4.3 %; Hematocrit 28 % (35-47); Hemoglobin 9.6 g/dL (12.0-16.0); Lymphocyte % 15.1 %; Mean Corpuscular HGB Conc 34 g/dL (31-36); Mean Corpuscular Hemoglobin 30 pg (27-31); Mean Corpuscular Volume 87 fL (80-97); Mean Platelet Volume 7.3 fL (7.4-10.4); Platelet Count 182 10^3/uL (150-450); Red Blood Count 3.25 10^6 /uL (3.70-4.87); Red Cell Distribution Width 15 % (10-15); White Blood Count 6.4 10^3/uL (3.5-10.8)
[2019-06-23 05:37] LABS: BUN/Creatinine Ratio 10.2 (8-20); Calcium 8.5 mg/dL (8.6-10.3); EGFR African American 147.8 (>60); EGFR Non-African American 122.1 (>60); Potassium 4.1 mmol/L (3.5-5.0)
[2019-06-23] MEDS: Cefepime 2 GM in Dextrose(*) 2 GM/50 ML BAG IV SCH ×3 (07:51→23:05)
[2019-06-23] MEDS: Apixaban* 5 MG TAB PO SCH ×2 (07:51→20:10)
[2019-06-23] MEDS: Docusate CAP* 100 MG PO SCH (07:52)
[2019-06-23] MEDS: Metoprolol Succinate XL TAB* 25 MG PO SCH (07:52)
[2019-06-23] MEDS: hydrALAZINE TAB* 10 MG PO SCH ×3 (07:53→20:09)
[2019-06-23] MEDS: Mometasone/Formoter 200/5 MDI INH SCH ×2 (07:53→19:34)
[2019-06-23] MEDS: Multivitamins/Minerals TAB PO SCH (07:54)
[2019-06-23] MEDS: Clopidogrel TAB* 75 MG PO SCH (07:54)
[2019-06-23] MEDS: Atorvastatin* 40 MG TAB PO SCH (07:54)
[2019-06-23] MEDS: Cholecalciferol TAB* 1000 UNITS PO SCH (07:54)
[2019-06-23] MEDS: Montelukast Sodium TAB* 10 MG PO SCH (07:54)
[2019-06-23] MEDS: Hydroxychloroquine TAB* 200 MG PO SCH ×2 (07:55→20:10)
[2019-06-23] MEDS: Cyanocobalamin TAB* 500 MCG PO SCH (07:55)
[2019-06-23] MEDS: HYDROmorphone TAB* 4 MG PO PRN ×3 (11:42→23:59)
--- NOTE | 2019-06-23 14:20 | PN ---
Subjective Date of Service: 06/23/19 Interval History: HD 4 on 06/23 Overnight- no acute events VS stable Patient does not have any present. She is off oxygen. Objective Active Medications: Acetylcysteine (Mucomyst Inhalation Samreen*) 400 mg INH Q6H PRN PRN Reason: CONGESTION Albuterol (Ventolin 2.5 Mg/3 Ml Neb.Samreen*) 2.5 mg INH Q4H PRN PRN Reason: SHORTNESS OF BREATH Amitriptyline HCl (Elavil Tab*) 25 mg PO BEDTIME [facility] Last Admin: 06/22/19 20:02 Dose: 25 mg Apixaban (Eliquis*) 5 mg PO BID [facility] Last Admin: 06/23/19 07:51 Dose: 5 mg Atorvastatin Calcium (Lipitor*) 40 mg PO DAILY [facility] Last Admin: 06/23/19 07:54 Dose: 40 mg Cholecalciferol (Vitamin D Tab*) 2,000 units PO QAM [facility] Last Admin: 06/23/19 07:54 Dose: 2,000 units Clopidogrel Bisulfate (Plavix Tab*) 75 mg PO DAILY [facility] Last Admin: 06/23/19 07:54 Dose: 75 mg Cyanocobalamin (Vitamin B12 Tab*) 1,000 mcg PO DAILY [facility] Last Admin: 06/23/19 07:55 Dose: 1,000 mcg Docusate Sodium (Colace Cap*) 200 mg PO QAM [facility] Last Admin: 06/23/19 07:52 Dose: 200 mg Duloxetine HCl (Cymbalta Cap*) 60 mg PO BEDTIME [facility] Last Admin: 06/22/19 20:02 Dose: 60 mg Heparin Sodium (Porcine) (Heparin Flush Picc/Ml/Cvc(*)) 1 ml FLUSH 0600,1800 [facility]; Protocol Hydralazine HCl (Apresoline Tab*) 15 mg PO TID [facility] Last Admin: 06/23/19 07:53 Dose: 15 mg Hydromorphone HCl (Dilaudid Tab*) 6 mg PO Q6H [facility] Last Admin: 06/23/19 07:52 Dose: 6 mg Hydromorphone HCl (Dilaudid Tab*) 4 mg PO Q4H PRN PRN Reason: PAIN Last Admin: 06/23/19 11:42 Dose: 4 mg Hydroxychloroquine Sulfate (Plaquenil Tab*) 200 mg PO BID [facility] Last Admin: 06/23/19 07:55 Dose: 200 mg Vancomycin HCl 1,000 mg/ (Sodium Chloride) 250 mls @ 83.333 mls/hr IV Q12H [facility] Last Admin: 06/23/19 03:42 Dose: 83.333 mls/hr Cefepime HCl (Maxipime 2 Gm In Dextrose Duplex (*)) 2 gm in 50 mls @ 100 mls/ hr IV Q8H [facility] Last Admin: 06/23/19 07:51 Dose: 100 mls/hr Levothyroxine Sodium (Synthroid Tab*) 137 mcg PO QAM@0600 [facility] Last Admin: 06/23/19 04:57 Dose: 137 mcg Losartan Potassium (Cozaar Tab*) 50 mg PO QPM [facility]; Protocol Last Admin: 06/22/19 17:10 Dose: 50 mg Metoprolol Succinate (Toprol Xl Tab*) 25 mg PO QAM [facility] Last Admin: 06/23/19 07:52 Dose: 25 mg Mometasone Furoate/Formoterol Fumar (Dulera 200/5 Mdi*) 2 puff INH BID [facility] Last Admin: 06/23/19 07:53 Dose: 2 puff Montelukast Sodium (Singulair Tab*) 10 mg PO QAM [facility] Last Admin: 06/23/19 07:54 Dose: 10 mg Multivitamins/Minerals (Theragran/Minerals Tab*) 1 tab PO QAM [facility] Last Admin: 06/23/19 07:54 Dose: 1 tab Pharmacy Consult (Vancomycin Per Pharmacy*) 1 note FOLLOW UP .VANC PER PHARMACY [facility]; Protocol Pharmacy Profile Note (Vancomycin Trough Check) 1 note FOLLOW UP 1530 ONE Stop: 06/23/19 15:31 Trimethoprim/Sulfamethoxazole (Bactrim Ss 400/80 Tab*) 1 tab PO BEDTIME [facility] Last Admin: 06/22/19 20:02 Dose: 1 tab Vital Signs - 8 hr 06/23/19 06/23/19 06/23/19 07:30 07:52 08:34 Temperature 97.3 F Pulse Rate 76 Respiratory 14 16 16 Rate Blood Pressure 124/96 (mmHg) O2 Sat by Pulse 96 Oximetry 06/23/19 06/23/19 06/23/19 08:35 11:00 11:42 Temperature 98.1 F Pulse Rate 72 Respiratory 14 16 16 Rate Blood Pressure 136/64 (mmHg) O2 Sat by Pulse 100 Oximetry Oxygen Devices in Use Now: None Exam: Patient is lying on a bed with no acute distress HEENT: Normocephalic and atraumatic Lungs: Coarse crackles heard in both lungs Heart: S1/S2 heard with murmur Abdomen: Soft, non-distended and nontender Extremities: Mild pitting edema Neuro: alert, conscious and oriented Result Diagrams: 06/23/19 04:56 06/23/19 04:56 Additional Lab and Data: Lab Results 06/20/19 06/20/19 06/20/19 Range/Units 18:42 18:42 18:42 WBC 11.3 H (3.5-10.8) 10^3/uL RBC 3.42 L (3.70-4.87) 10^6 /uL Hgb 10.2 L (12.0-16.0) g/dL Hct 31 L (35-47) % MCV 90 (80-97) fL MCH 30 (27-31) pg MCHC 33 (31-36) g/dL RDW 15 (10-15) % Plt Count 185 (150-450) 10^3/uL MPV 7.1 L (7.4-10.4) fL Neut % (Auto) 81.2 % Lymph % (Auto) 9.8 % [place] % (Auto) 6.6 % Eos % (Auto) 2.3 % Baso % (Auto) 0.1 % Absolute Neuts (auto) 9.2 H (1.5-7.7) 10^3/ul Absolute Lymphs (auto) 1.1 (1.0-4.8) 10^3/ul Absolute Monos (auto) 0.7 (0-0.8) 10^3/ul Absolute Eos (auto) 0.3 (0-0.6) 10^3/ul Absolute Basos (auto) 0.0 (0-0.2) 10^3/ul Absolute Nucleated RBC 0.0 10^3/ul Nucleated RBC % 0.0 Sodium 127 L (135-145) mmol/L Potassium 4.2 (3.5-5.0) mmol/L Chloride 96 L (101-111) mmol/L Carbon Dioxide 24 (22-32) mmol/L Anion Gap 7 (2-11) mmol/L BUN 10 (6-24) mg/dL Creatinine 0.69 (0.51-0.95) mg/dL Est GFR ( Amer) 99.6 (>60) Est GFR (Non-Af Amer) 82.3 (>60) BUN/Creatinine Ratio 14.5 (8-20) Glucose 111 H (70-100) mg/dL Calcium 8.9 (8.6-10.3) mg/dL Total Bilirubin 0.70 (0.2-1.0) mg/dL AST 30 (13-39) U/L ALT 15 (7-52) U/L Alkaline Phosphatase 63 (34-104) U/L Troponin I 0.04 H* (<0.04) ng/mL B-Natriuretic Peptide 290 H (<=100) pg/mL Total Protein 6.1 L (6.4-8.9) g/dL Albumin 3.8 (3.2-5.2) g/dL Globulin 2.3 (2-4) g/dL Albumin/Globulin Ratio 1.7 (1-3) Assess/Plan/Problems-Billing Assessment: 78 y/o F with multiple medical history significant for recent aortic valve replacement and pacemaker insertion and stent placement presented with generalized weakness and fatigue and cough. Noted to have fever, leucocytosis and imaging showing infiltrates. +/- sepsis has her HR was just 90. on vanco, cefepime and azithro - Patient Problems (1) Sepsis Current Visit: Yes Status: Acute Comment: -resolved (2) Pneumonia Current Visit: Yes Status: Acute Code(s): J18.9 - PNEUMONIA, UNSPECIFIED ORGANISM SNOMED Code(s): 132052773 Comment: - has bilateral pneumonia -she was recently d/c from [place] 1 weeek ago and her symptom started at that time. most likley HAP -we will cover broadly with vanc, cefepime and azithro(day4 on 06/23) -urine negative for legionella and strep -sputum culture pending (3) Hypertension Current Visit: No Status: Acute Code(s): I10 - ESSENTIAL (PRIMARY) HYPERTENSION SNOMED Code(s): 67860621 Comment: -bp controlled -continue home losartan (4) Hyponatremia Current Visit: No Status: Acute Code(s): E87.1 - HYPO-OSMOLALITY AND HYPONATREMIA SNOMED Code(s): 88644659 Comment: -mild; improving -has chronic hyponatremia -will monitor (5) COPD with chronic bronchitis Current Visit: No Status: Chronic Code(s): J44.9 - CHRONIC OBSTRUCTIVE PULMONARY DISEASE, UNSPECIFIED SNOMED Code(s): 044364189 Comment: -no acute exacerbation -no wheezing -continue home inhalers -added mucomyst yesterday (6) CVID (common variable immunodeficiency) Current Visit: No Status: Chronic Code(s): D83.9 - COMMON VARIABLE IMMUNODEFICIENCY, UNSPECIFIED SNOMED Code(s): 53702654 Comment: -not an active issue. -might increase chance of infection though monitor closely (7) Aortic valve replaced Current Visit: Yes Status: Acute Code(s): Z95.2 - PRESENCE OF PROSTHETIC HEART VALVE SNOMED Code(s): 5717549269902 Comment: -recently done in [place] -d/c 1 week ago -along with pacemaker insertion and stent placement -high risk for endocarditis; suspicion low -TTE negative for vegetation -we will treat her pneumonia first; if she doesnot improve then will consider RAUL (8) Chronic pain Current Visit: No Status: Chronic Priority: High Code(s): G89.29 - OTHER CHRONIC PAIN SNOMED Code(s): 01016527 Comment: -has chronic pain -continue dilaudid -dose adjusted today -Hydromorphone 6 mg every 6 hr scheduled and 4 mg 6 hr prn - MED 96-98 (9) Hypothyroid Current Visit: No Status: Chronic Code(s): E03.9 - HYPOTHYROIDISM, UNSPECIFIED SNOMED Code(s): 37136738 Comment: Continue current dose of synthroid. (10) DVT prophylaxis Current Visit: No Status: Acute Code(s): PAY0452 - SNOMED Code(s): 760153507 Comment: -On eliquis Status and Disposition: Inpatient PT recommends mobilization with nsg and will benefit from home PT. Attending: Fito Urrutia Attestation Documenting Resident: Rob Farfan Supervising Physician: Fito Urrutia Attending/Supervising Physician Comment: Agree with note as outlined here in Dr. Farfan's note unless indicated here. 78 yo F h/o CVID d/c 1 week ago after AVR, single vessel PCI, PPM p/w bilateral PNA suspected hospital acquired PNA now s/p azithro and on vanco/cefepime Plan to transition to PO abx tomorrow if remains stable Attestation: This service has been performed in part by a resident under the direction of a teaching physician.I, Fito Urrutia, performed the service, or was physically present during the critical, or mclaughlin portions of the service, furnished by the resident. I participated in the management of the patient.
[2019-06-23] MEDS ORDERED: Vancomycin Trough Check NOTE FOLLOW UP ONE (15:30)
[2019-06-23] MEDS: Losartan TAB* 25 MG PO SCH (17:09)
[2019-06-23] MEDS: DULoxetine DR CAP* 60 MG CAP.DR PO SCH (20:10)
[2019-06-23] MEDS: Amitriptyline TAB* 25 MG PO SCH (20:10)
[2019-06-23] MEDS: Sulfamethox/Trimethoprim SS 400/80* TAB PO SCH (20:10)
[2019-06-24] MEDS: HYDROmorphone TAB* 2 MG PO SCH ×4 (02:13→20:28)
[2019-06-24] MEDS: Vancomycin(*) 1,250 MG in NS 0.9% 250 ML* 250 ML IVPB SCH ×2 (04:52→17:35)
[2019-06-24] MEDS: HYDROmorphone TAB* 4 MG PO PRN (04:52)
[2019-06-24] MEDS: Levothyroxine TAB* 137 MCG TAB PO SCH (04:52)
[2019-06-24] MEDS: Mometasone/Formoter 200/5 MDI INH SCH ×2 (07:44→20:20)
[2019-06-24] MEDS: Hydroxychloroquine TAB* 200 MG PO SCH ×2 (08:08→20:29)
[2019-06-24] MEDS: Multivitamins/Minerals TAB PO SCH (08:08)
[2019-06-24] MEDS: Docusate CAP* 100 MG PO SCH (08:09)
[2019-06-24] MEDS: Cholecalciferol TAB* 1000 UNITS PO SCH (08:09)
[2019-06-24] MEDS: hydrALAZINE TAB* 10 MG PO SCH ×3 (08:10→20:29)
[2019-06-24] MEDS: Metoprolol Succinate XL TAB* 25 MG PO SCH (08:10)
[2019-06-24] MEDS: Clopidogrel TAB* 75 MG PO SCH (08:11)
[2019-06-24] MEDS: Montelukast Sodium TAB* 10 MG PO SCH (08:11)
[2019-06-24] MEDS: Atorvastatin* 40 MG TAB PO SCH (08:11)
[2019-06-24] MEDS: Apixaban* 5 MG TAB PO SCH ×2 (08:11→20:29)
[2019-06-24] MEDS: Cyanocobalamin TAB* 500 MCG PO SCH (08:12)
[2019-06-24] MEDS: Cefepime 2 GM in Dextrose(*) 2 GM/50 ML BAG IV SCH ×3 (08:34→23:50)
--- NOTE | 2019-06-24 17:23 | PN ---
Subjective Date of Service: 06/24/19 Interval History: Feels fatigued Walking more to the bathroom but still with SOB Feels SOB with ambulation is improving +cough, non productive In good spirits Objective Active Medications: Acetylcysteine (Mucomyst Inhalation Samreen*) 400 mg INH Q6H PRN PRN Reason: CONGESTION Albuterol (Ventolin 2.5 Mg/3 Ml Neb.Samreen*) 2.5 mg INH Q4H PRN PRN Reason: SHORTNESS OF BREATH Amitriptyline HCl (Elavil Tab*) 25 mg PO BEDTIME [facility] Last Admin: 06/23/19 20:10 Dose: 25 mg Apixaban (Eliquis*) 5 mg PO BID [facility] Last Admin: 06/24/19 08:11 Dose: 5 mg Atorvastatin Calcium (Lipitor*) 40 mg PO DAILY [facility] Last Admin: 06/24/19 08:11 Dose: 40 mg Cholecalciferol (Vitamin D Tab*) 2,000 units PO QAM [facility] Last Admin: 06/24/19 08:09 Dose: 2,000 units Clopidogrel Bisulfate (Plavix Tab*) 75 mg PO DAILY [facility] Last Admin: 06/24/19 08:11 Dose: 75 mg Cyanocobalamin (Vitamin B12 Tab*) 1,000 mcg PO DAILY [facility] Last Admin: 06/24/19 08:12 Dose: 1,000 mcg Docusate Sodium (Colace Cap*) 200 mg PO QAM [facility] Last Admin: 06/24/19 08:09 Dose: 200 mg Duloxetine HCl (Cymbalta Cap*) 60 mg PO BEDTIME [facility] Last Admin: 06/23/19 20:10 Dose: 60 mg Heparin Sodium (Porcine) (Heparin Flush Picc/Ml/Cvc(*)) 1 ml FLUSH 0600,1800 [facility]; Protocol Last Admin: 06/23/19 23:54 Dose: 1 ml Hydralazine HCl (Apresoline Tab*) 15 mg PO TID [facility] Last Admin: 06/24/19 13:30 Dose: 15 mg Hydromorphone HCl (Dilaudid Tab*) 6 mg PO Q6H [facility] Last Admin: 06/24/19 13:32 Dose: 6 mg Hydromorphone HCl (Dilaudid Tab*) 4 mg PO Q4H PRN PRN Reason: PAIN Last Admin: 06/24/19 04:52 Dose: 4 mg Hydroxychloroquine Sulfate (Plaquenil Tab*) 200 mg PO BID [facility] Last Admin: 06/24/19 08:08 Dose: 200 mg Cefepime HCl (Maxipime 2 Gm In Dextrose Duplex (*)) 2 gm in 50 mls @ 100 mls/ hr IV Q8H [facility] Last Admin: 06/24/19 15:16 Dose: 100 mls/hr Vancomycin HCl 1,250 mg/ (Sodium Chloride) 250 mls @ 83.333 mls/hr IVPB Q12H [facility] Last Admin: 06/24/19 04:52 Dose: 83.333 mls/hr Levothyroxine Sodium (Synthroid Tab*) 137 mcg PO QAM@0600 [facility] Last Admin: 06/24/19 04:52 Dose: 137 mcg Losartan Potassium (Cozaar Tab*) 50 mg PO QPM [facility]; Protocol Last Admin: 06/23/19 17:09 Dose: 50 mg Metoprolol Succinate (Toprol Xl Tab*) 25 mg PO QAM [facility] Last Admin: 06/24/19 08:10 Dose: 25 mg Mometasone Furoate/Formoterol Fumar (Dulera 200/5 Mdi*) 2 puff INH BID [facility] Last Admin: 06/24/19 07:44 Dose: 2 puff Montelukast Sodium (Singulair Tab*) 10 mg PO QAM [facility] Last Admin: 06/24/19 08:11 Dose: 10 mg Multivitamins/Minerals (Theragran/Minerals Tab*) 1 tab PO QAM [facility] Last Admin: 06/24/19 08:08 Dose: 1 tab Pharmacy Consult (Vancomycin Per Pharmacy*) 1 note FOLLOW UP .VANC PER PHARMACY [facility]; Protocol Pharmacy Profile Note (Vancomycin Trough Check) 1 note FOLLOW UP ONCE ONE Stop: 06/26/19 04:31 Trimethoprim/Sulfamethoxazole (Bactrim Ss 400/80 Tab*) 1 tab PO BEDTIME [facility] Last Admin: 06/23/19 20:10 Dose: 1 tab Vital Signs - 8 hr 06/24/19 06/24/19 06/24/19 11:33 13:32 14:05 Temperature 98.1 F Pulse Rate 71 Respiratory 20 20 20 Rate Blood Pressure 139/82 (mmHg) O2 Sat by Pulse 97 Oximetry 06/24/19 06/24/19 14:07 15:19 Temperature Pulse Rate Respiratory 20 18 Rate Blood Pressure (mmHg) O2 Sat by Pulse Oximetry Oxygen Devices in Use Now: None Appearance: sitting in chair, NAD Eyes: No Scleral Icterus, PERRLA Ears/Nose/Mouth/Throat: NL Teeth, Lips, Gums, Clear Oropharnyx Neck: NL Appearance and Movements; NL JVP, Trachea Midline Respiratory: Symmetrical Chest Expansion and Respiratory Effort, - - diffuse rhonichi Cardiovascular: RRR, - - early 2/6 EMMY rusb Abdominal: NL Sounds; No Tenderness; No Distention, No Hepatosplenomegaly Lymphatic: No Cervical Adenopathy Neurological: Alert and Oriented x 3 Result Diagrams: 06/23/19 04:56 06/23/19 04:56 Additional Lab and Data: Lab Results 06/20/19 06/20/19 06/20/19 Range/Units 18:42 18:42 18:42 WBC 11.3 H (3.5-10.8) 10^3/uL RBC 3.42 L (3.70-4.87) 10^6 /uL Hgb 10.2 L (12.0-16.0) g/dL Hct 31 L (35-47) % MCV 90 (80-97) fL MCH 30 (27-31) pg MCHC 33 (31-36) g/dL RDW 15 (10-15) % Plt Count 185 (150-450) 10^3/uL MPV 7.1 L (7.4-10.4) fL Neut % (Auto) 81.2 % Lymph % (Auto) 9.8 % [place] % (Auto) 6.6 % Eos % (Auto) 2.3 % Baso % (Auto) 0.1 % Absolute Neuts (auto) 9.2 H (1.5-7.7) 10^3/ul Absolute Lymphs (auto) 1.1 (1.0-4.8) 10^3/ul Absolute Monos (auto) 0.7 (0-0.8) 10^3/ul Absolute Eos (auto) 0.3 (0-0.6) 10^3/ul Absolute Basos (auto) 0.0 (0-0.2) 10^3/ul Absolute Nucleated RBC 0.0 10^3/ul Nucleated RBC % 0.0 Sodium 127 L (135-145) mmol/L Potassium 4.2 (3.5-5.0) mmol/L Chloride 96 L (101-111) mmol/L Carbon Dioxide 24 (22-32) mmol/L Anion Gap 7 (2-11) mmol/L BUN 10 (6-24) mg/dL Creatinine 0.69 (0.51-0.95) mg/dL Est GFR ( Amer) 99.6 (>60) Est GFR (Non-Af Amer) 82.3 (>60) BUN/Creatinine Ratio 14.5 (8-20) Glucose 111 H (70-100) mg/dL Calcium 8.9 (8.6-10.3) mg/dL Total Bilirubin 0.70 (0.2-1.0) mg/dL AST 30 (13-39) U/L ALT 15 (7-52) U/L Alkaline Phosphatase 63 (34-104) U/L Troponin I 0.04 H* (<0.04) ng/mL B-Natriuretic Peptide 290 H (<=100) pg/mL Total Protein 6.1 L (6.4-8.9) g/dL Albumin 3.8 (3.2-5.2) g/dL Globulin 2.3 (2-4) g/dL Albumin/Globulin Ratio 1.7 (1-3) Microbiology and Other Data: Microbiology 06/22/19 11:12 Gram Stain - Final Sputum Sputum Culture - Final YEAST Normal [place] 06/20/19 20:40 Aerobic Blood Culture - Preliminary Blood Venous No Growth Day 3 Anaerobic Blood Culture - Preliminary No Growth Day 3 06/20/19 20:07 Aerobic Blood Culture - Preliminary Blood Venous No Growth Day 3 Anaerobic Blood Culture - Preliminary No Growth Day 3 06/21/19 13:51 Legionella Urinary Antigen - Final Urine Negative Legionella Antigen Streptococcus pneumoniae Ag Screen - Final Negative S. pneumo Antigen 06/21/19 02:15 Nasal Screen MRSA (PCR) - Final Nasal Mrsa Not Detected Assess/Plan/Problems-Billing Assessment: 78 y/o F h/o significant for recent aortic valve replacement, PPM placement and LHC with LAD PCI in May presented with weakness, fatigue, cough and fever found with leukocytosis and multifocal PNA. +/- sepsis now on vanco, cefepime and azithro - Patient Problems (1) Sepsis Comment: -resolved (2) Pneumonia Comment: -has bilateral pneumonia -she was recently d/c from [place] 1 weeek ago and her symptom started at that time. - treating for hospital acquired PNA developed prior to this hospital stay - we will cover broadly with vanc, cefepime (day 5 on 06/24) - received azithro course -urine negative for legionella and strep (3) Hypertension Comment: -bp controlled -continue home losartan and metoprolol (4) Hyponatremia Comment: -mild; improving (5) COPD with chronic bronchitis Comment: -not in acute exacerbation -continue home inhalers -added mucomyst (6) CVID (common variable immunodeficiency) Comment: -increased risk for PNAs -previously received therapy from Dr. Voss but did not tolerate (7) Aortic valve replaced Comment: -recently done in [place] -d/c 1 week ago -along with pacemaker insertion and stent placement -TTE negative for vegetation -we will treat her pneumonia first; if she doesnot improve then will consider RAUL (8) Chronic pain Comment: -has chronic pain -continue dilaudid -Hydromorphone 6 mg every 6 hr scheduled and 4 mg 6 hr prn - MED 96-98 (9) Hypothyroid Comment: Continue current dose of synthroid. (10) DVT prophylaxis Comment: -On eliquis Status and Disposition: Inpatient PT recommends mobilization with nsg and will benefit from home PT.
[2019-06-24] MEDS: Losartan TAB* 25 MG PO SCH (17:35)
[2019-06-24] MEDS: Sulfamethox/Trimethoprim SS 400/80* TAB PO SCH (20:28)
[2019-06-24] MEDS: Amitriptyline TAB* 25 MG PO SCH (20:28)
[2019-06-24] MEDS: DULoxetine DR CAP* 60 MG CAP.DR PO SCH (20:29)
[2019-06-25] MEDS: HYDROmorphone TAB* 2 MG PO SCH ×4 (01:51→20:22)
[2019-06-25 04:45] LABS: EGFR African American 144.4 (>60); EGFR Non-African American 119.3 (>60)
[2019-06-25 04:55] LABS: Vancomycin Trough 15.5 mcg/mL
[2019-06-25] MEDS: Levothyroxine TAB* 137 MCG TAB PO SCH (05:06)
[2019-06-25] MEDS: Vancomycin(*) 1,250 MG in NS 0.9% 250 ML* 250 ML IVPB SCH ×2 (05:06→17:44)
[2019-06-25] MEDS: HYDROmorphone TAB* 4 MG PO PRN ×2 (05:24→17:27)
--- NOTE | 2019-06-25 06:45 | PN ---
Subjective Date of Service: 06/25/19 Interval History: HD 6 on 06/25 Overnight- increased frequency of urine and dribbling VS stable Reports frequency and urgency of urine. No burning micturition Has dry cough Denies fever, chest pain, SOB, abdominal pain Objective Active Medications: Acetylcysteine (Mucomyst Inhalation Samreen*) 400 mg INH Q6H PRN PRN Reason: CONGESTION Albuterol (Ventolin 2.5 Mg/3 Ml Neb.Samreen*) 2.5 mg INH Q4H PRN PRN Reason: SHORTNESS OF BREATH Amitriptyline HCl (Elavil Tab*) 25 mg PO BEDTIME [facility] Last Admin: 06/24/19 20:28 Dose: 25 mg Apixaban (Eliquis*) 5 mg PO BID [facility] Last Admin: 06/24/19 20:29 Dose: 5 mg Atorvastatin Calcium (Lipitor*) 40 mg PO DAILY [facility] Last Admin: 06/24/19 08:11 Dose: 40 mg Cholecalciferol (Vitamin D Tab*) 2,000 units PO QAM [facility] Last Admin: 06/24/19 08:09 Dose: 2,000 units Clopidogrel Bisulfate (Plavix Tab*) 75 mg PO DAILY [facility] Last Admin: 06/24/19 08:11 Dose: 75 mg Cyanocobalamin (Vitamin B12 Tab*) 1,000 mcg PO DAILY [facility] Last Admin: 06/24/19 08:12 Dose: 1,000 mcg Docusate Sodium (Colace Cap*) 200 mg PO QAM [facility] Last Admin: 06/24/19 08:09 Dose: 200 mg Duloxetine HCl (Cymbalta Cap*) 60 mg PO BEDTIME [facility] Last Admin: 06/24/19 20:29 Dose: 60 mg Heparin Sodium (Porcine) (Heparin Flush Picc/Ml/Cvc(*)) 1 ml FLUSH 0600,1800 [facility]; Protocol Last Admin: 06/24/19 22:59 Dose: Not Given Hydralazine HCl (Apresoline Tab*) 15 mg PO TID [facility] Last Admin: 06/24/19 20:29 Dose: 15 mg Hydromorphone HCl (Dilaudid Tab*) 6 mg PO Q6H [facility] Last Admin: 06/25/19 01:51 Dose: 6 mg Hydromorphone HCl (Dilaudid Tab*) 4 mg PO Q4H PRN PRN Reason: PAIN Last Admin: 06/25/19 05:24 Dose: 4 mg Hydroxychloroquine Sulfate (Plaquenil Tab*) 200 mg PO BID [facility] Last Admin: 06/24/19 20:29 Dose: 200 mg Cefepime HCl (Maxipime 2 Gm In Dextrose Duplex (*)) 2 gm in 50 mls @ 100 mls/ hr IV Q8H [facility] Last Admin: 06/24/19 23:50 Dose: 100 mls/hr Vancomycin HCl 1,250 mg/ (Sodium Chloride) 250 mls @ 83.333 mls/hr IVPB Q12H [facility] Last Admin: 06/25/19 05:06 Dose: 83.333 mls/hr Levothyroxine Sodium (Synthroid Tab*) 137 mcg PO QAM@0600 [facility] Last Admin: 06/25/19 05:06 Dose: 137 mcg Losartan Potassium (Cozaar Tab*) 50 mg PO QPM [facility]; Protocol Last Admin: 06/24/19 17:35 Dose: 50 mg Metoprolol Succinate (Toprol Xl Tab*) 25 mg PO QAM [facility] Last Admin: 06/24/19 08:10 Dose: 25 mg Mometasone Furoate/Formoterol Fumar (Dulera 200/5 Mdi*) 2 puff INH BID [facility] Last Admin: 06/24/19 20:20 Dose: 2 puff Montelukast Sodium (Singulair Tab*) 10 mg PO QAM [facility] Last Admin: 06/24/19 08:11 Dose: 10 mg Multivitamins/Minerals (Theragran/Minerals Tab*) 1 tab PO QAM [facility] Last Admin: 06/24/19 08:08 Dose: 1 tab Pharmacy Consult (Vancomycin Per Pharmacy*) 1 note FOLLOW UP .VANC PER PHARMACY [facility]; Protocol Pharmacy Profile Note (Vancomycin Trough Check) 1 note FOLLOW UP ONCE ONE Stop: 06/26/19 04:31 Trimethoprim/Sulfamethoxazole (Bactrim Ss 400/80 Tab*) 1 tab PO BEDTIME [facility] Last Admin: 06/24/19 20:28 Dose: 1 tab Vital Signs - 8 hr 06/24/19 06/24/19 06/25/19 22:58 23:10 01:51 Temperature 98.0 F Pulse Rate 71 Respiratory 18 16 18 Rate Blood Pressure 132/51 (mmHg) O2 Sat by Pulse 98 Oximetry 06/25/19 06/25/19 06/25/19 03:10 04:08 05:24 Temperature 98.1 F Pulse Rate 73 Respiratory 16 18 20 Rate Blood Pressure 137/63 (mmHg) O2 Sat by Pulse 95 Oximetry Oxygen Devices in Use Now: None Exam: Patient is sitting on a chair with no acute distress HEENT- Normocephalic and atraumatic Lungs- Bilateral crackles heard Heart- S1/S2 heard with murmur Abdomen- Soft, nondistended and nontender. Noraml BS heard Extremities: Normal Neuro- Alert, oriented and coperative. Moving all four extremities Result Diagrams: 06/23/19 04:56 06/25/19 04:10 Additional Lab and Data: Lab Results 06/20/19 06/20/19 06/20/19 Range/Units 18:42 18:42 18:42 WBC 11.3 H (3.5-10.8) 10^3/uL RBC 3.42 L (3.70-4.87) 10^6 /uL Hgb 10.2 L (12.0-16.0) g/dL Hct 31 L (35-47) % MCV 90 (80-97) fL MCH 30 (27-31) pg MCHC 33 (31-36) g/dL RDW 15 (10-15) % Plt Count 185 (150-450) 10^3/uL MPV 7.1 L (7.4-10.4) fL Neut % (Auto) 81.2 % Lymph % (Auto) 9.8 % [place] % (Auto) 6.6 % Eos % (Auto) 2.3 % Baso % (Auto) 0.1 % Absolute Neuts (auto) 9.2 H (1.5-7.7) 10^3/ul Absolute Lymphs (auto) 1.1 (1.0-4.8) 10^3/ul Absolute Monos (auto) 0.7 (0-0.8) 10^3/ul Absolute Eos (auto) 0.3 (0-0.6) 10^3/ul Absolute Basos (auto) 0.0 (0-0.2) 10^3/ul Absolute Nucleated RBC 0.0 10^3/ul Nucleated RBC % 0.0 Sodium 127 L (135-145) mmol/L Potassium 4.2 (3.5-5.0) mmol/L Chloride 96 L (101-111) mmol/L Carbon Dioxide 24 (22-32) mmol/L Anion Gap 7 (2-11) mmol/L BUN 10 (6-24) mg/dL Creatinine 0.69 (0.51-0.95) mg/dL Est GFR ( Amer) 99.6 (>60) Est GFR (Non-Af Amer) 82.3 (>60) BUN/Creatinine Ratio 14.5 (8-20) Glucose 111 H (70-100) mg/dL Calcium 8.9 (8.6-10.3) mg/dL Total Bilirubin 0.70 (0.2-1.0) mg/dL AST 30 (13-39) U/L ALT 15 (7-52) U/L Alkaline Phosphatase 63 (34-104) U/L Troponin I 0.04 H* (<0.04) ng/mL B-Natriuretic Peptide 290 H (<=100) pg/mL Total Protein 6.1 L (6.4-8.9) g/dL Albumin 3.8 (3.2-5.2) g/dL Globulin 2.3 (2-4) g/dL Albumin/Globulin Ratio 1.7 (1-3) Microbiology and Other Data: Microbiology 06/22/19 11:12 Gram Stain - Final Sputum Sputum Culture - Final YEAST Normal Massiel 06/20/19 20:40 Aerobic Blood Culture - Preliminary Blood Venous No Growth Day 3 Anaerobic Blood Culture - Preliminary No Growth Day 3 06/20/19 20:07 Aerobic Blood Culture - Preliminary Blood Venous No Growth Day 3 Anaerobic Blood Culture - Preliminary No Growth Day 3 06/21/19 13:51 Legionella Urinary Antigen - Final Urine Negative Legionella Antigen Streptococcus pneumoniae Ag Screen - Final Negative S. pneumo Antigen 06/21/19 02:15 Nasal Screen MRSA (PCR) - Final Nasal Mrsa Not Detected Assess/Plan/Problems-Billing Assessment: 78 y/o F h/o significant for recent aortic valve replacement, PPM placement and C with LAD PCI in May presented with weakness, fatigue, cough and fever found with leukocytosis and multifocal PNA. +/- sepsis now on vanco, cefepime. Completed course of azithro. - Patient Problems (1) Sepsis Current Visit: Yes Status: Acute Comment: -resolved (2) Pneumonia Current Visit: Yes Status: Acute Code(s): J18.9 - PNEUMONIA, UNSPECIFIED ORGANISM SNOMED Code(s): 589726119 Comment: -has bilateral pneumonia -she was recently d/c from [place] 1 weeek ago and her symptom started at that time. - treating for hospital acquired PNA developed prior to this hospital stay- might as well be VAP - we will cover broadly with vanc, cefepime (day 6 on 06/25)- we will give iv abx for 7 days and may require additional oral abx for 3-5 more days - received azithro course -urine negative for legionella and strep -sptumn culture negative for bacteria; yeast+ (3) Hypertension Current Visit: Yes Status: Acute Code(s): I10 - ESSENTIAL (PRIMARY) HYPERTENSION SNOMED Code(s): 36346430 Comment: -bp controlled -continue home losartan and metoprolol (4) Hyponatremia Current Visit: Yes Status: Acute Code(s): E87.1 - HYPO-OSMOLALITY AND HYPONATREMIA SNOMED Code(s): 24567978 Comment: -mild; improving (5) COPD with chronic bronchitis Current Visit: Yes Status: Chronic Code(s): J44.9 - CHRONIC OBSTRUCTIVE PULMONARY DISEASE, UNSPECIFIED SNOMED Code(s): 453857449 Comment: -not in acute exacerbation -continue home inhalers -added mucomyst (6) CVID (common variable immunodeficiency) Current Visit: Yes Status: Chronic Code(s): D83.9 - COMMON VARIABLE IMMUNODEFICIENCY, UNSPECIFIED SNOMED Code(s): 13063313 Comment: -increased risk for PNAs -previously received therapy from Dr. Voss but did not tolerate -on prophylactic abx-bactrim -will continue on discharge (7) Aortic valve replaced Current Visit: Yes Status: Acute Code(s): Z95.2 - PRESENCE OF PROSTHETIC HEART VALVE SNOMED Code(s): 1741218320753 Comment: -recently done in [place] -d/c 1 week ago -along with pacemaker insertion and stent placement -TTE negative for vegetation -we will treat her pneumonia first; if she doesnot improve then will consider RAUL (8) Chronic pain Current Visit: Yes Status: Chronic Priority: High Code(s): G89.29 - OTHER CHRONIC PAIN SNOMED Code(s): 65980706 Comment: -has chronic pain -continue dilaudid -Hydromorphone 6 mg every 6 hr scheduled and 4 mg 6 hr prn - MED 96-98 (9) Hypothyroid Current Visit: Yes Status: Chronic Code(s): E03.9 - HYPOTHYROIDISM, UNSPECIFIED SNOMED Code(s): 10765923 Comment: Continue current dose of synthroid. (10) DVT prophylaxis Current Visit: Yes Status: Acute Code(s): TWP8964 - SNOMED Code(s): 275656778 Comment: -On eliquis Status and Disposition: Inpatient PT recommends mobilization with nsg and will benefit from home PT. Attending: Teresa Wilde Attestation Documenting Resident: Rob Farfan Supervising Physician: Teresa Wilde Attending/Supervising Physician Comment: Attending assessment and plan I have read the residents note and agree with her findings 78F PMH CVID, RA on plaquenil, chronic pain on [facility] opiates, hypothryodi, recent cardiac hx significant for recent aortic valve replacement and pacemaker insertion and CAD s/p PCI placement presented with sepsis 2/2 to HAP as she was recently d/c from [place] from above procedure #Sepsis: Resolved #HAP: Total of 7 days IV abx, OK to d/c on home abx, walk test 06/26 #CVID: Hold pts Bactrim while getting tx dose abx #AVR: Recent on Eliquis #CAD sp PCI: On Clopidogrel and statin #Chronic pain: Home meds #Hypothyroid: Synthroid #DVT: On Eliquis #Code: Full Dispo: Plan for d/c 06/26 Attestation: This service has been performed in part by a resident under the direction of a teaching physician.I, Teresa Wilde, performed the service, or was physically present during the critical, or mclaughlin portions of the service, furnished by the resident. I participated in the management of the patient.
[2019-06-25] MEDS: Mometasone/Formoter 200/5 MDI INH SCH ×2 (08:16→19:46)
[2019-06-25] MEDS: Cefepime 2 GM in Dextrose(*) 2 GM/50 ML BAG IV SCH ×3 (09:55→23:29)
[2019-06-25] MEDS: Cholecalciferol TAB* 1000 UNITS PO SCH (09:59)
[2019-06-25] MEDS: Hydroxychloroquine TAB* 200 MG PO SCH ×2 (09:59→20:22)
[2019-06-25] MEDS: Multivitamins/Minerals TAB PO SCH (10:00)
[2019-06-25] MEDS: Atorvastatin* 40 MG TAB PO SCH (10:00)
[2019-06-25] MEDS: Cyanocobalamin TAB* 500 MCG PO SCH (10:00)
[2019-06-25] MEDS: Apixaban* 5 MG TAB PO SCH ×2 (10:01→20:22)
[2019-06-25] MEDS: Metoprolol Succinate XL TAB* 25 MG PO SCH (10:01)
[2019-06-25] MEDS: Clopidogrel TAB* 75 MG PO SCH (10:01)
[2019-06-25] MEDS: Montelukast Sodium TAB* 10 MG PO SCH (10:01)
[2019-06-25] MEDS: Docusate CAP* 100 MG PO SCH (10:01)
[2019-06-25] MEDS: hydrALAZINE TAB* 10 MG PO SCH ×3 (10:02→20:22)
[2019-06-25] MEDS ORDERED: Polyethylene Glycol 3350* 17 GM PACKET PO ONE (12:01)
[2019-06-25] MEDS: Losartan TAB* 25 MG PO SCH (16:25)
[2019-06-25] MEDS: DULoxetine DR CAP* 60 MG CAP.DR PO SCH (20:22)
[2019-06-25] MEDS: Amitriptyline TAB* 25 MG PO SCH (20:22)
--- NOTE | 2019-06-25 20:25 | DS ---
CC: Dr. Candace Lopez * DISCHARGE SUMMARY: DATE OF ADMISSION: 06/20/19 DATE OF DISCHARGE: 06/26/19. PRIMARY CARE PROVIDER: Candace Lopez MD DISPOSITION AT THE TIME OF DISCHARGE: Stable to be discharged to home. MEDICATIONS AT THE TIME OF DISCHARGE: 1. Albuterol 2.5 mg inhaled q.4 hours p.r.n. 2. Amitriptyline 25 mg p.o. q.h.s. 3. Apixaban 5 mg p.o. b.i.d. 4. Atorvastatin 40 mg p.o. daily. 5. Cholecalciferol 2000 units p.o. q.a.m. 6. Clopidogrel 75 mg p.o. daily. 7. Cyanocobalamin 1000 mcg p.o. daily. 8. Docusate sodium 250 mg p.o. q.a.m. 9. Duloxetine 60 mg p.o. q.h.s. 10. Breo Ellipta 1 puff inhaled q.a.m. 11. Hydralazine 15 mg p.o. t.i.d. 12. Hydromorphone 4 mg p.o. q.4 hours p.r.n. 13. Hydromorphone 12 mg extended release p.o. b.i.d. 14. Plaquenil 200 mg p.o. b.i.d. 15. Levothyroxine 137 mcg p.o. q.a.m. 16. Metoprolol 25 mg p.o. q.a.m. 17. Montelukast sodium 10 mg p.o. q.a.m. 18. Multivitamin 1 tab p.o. q.a.m. 19. Telmisartan 40 mg p.o. q.p.m. 20. ProAir RespiClick 1 puff inhaled daily p.r.n. 21. Amlodipine 10 mg p.o. daily. 22. Bactrim DS one tab p.o. q.h.s. for prophylaxis-to be started after Augmentin and Doxy are completed. 23. Augmentin 875-125 1 tab p.o. BID for an additional 4 days after discharge 34. Doxycycline 100mg 1 tab p.p BID for an additional 4 days after discharge 35. Prednisone 50mg x 3 days, 40mg x 3 days, 30mg x 3 days, 20mg x3 days, 10mg x 3 days then stop--OPTIONAL AND PT CAN START IF SHE FEELS SHE NEEDS IT Medication changes on this hospitalization include: addition of Augmentin, Doxycycline, and PRN Prednisone taper PRIMARY DIAGNOSIS: Hospital-acquired pneumonia. SECONDARY DIAGNOSES: 1. Hypertension. 2. Aortic stenosis, status post recent aortic valve replacement. 3. Atrial fibrillation, status post recent PPM. 4. Hypertension. 5. Psoriatic arthritis, on Plaquenil/steroids. 6. Common variable immune deficiency, on prophylactic Bactrim. 7. Hypothyroidism. 8. Depression. 9. Coronary artery disease, status post recent PCI to LAD in preparation for her aortic valve replacement. 10. Chronic pain on termination clerk opiate pain medication HISTORY OF PRESENT ILLNESS AND HOSPITAL COURSE: A 78-year-old female with above past medical history, who presented to the emergency room 5 days after being discharged from [facility] where she had had a Bovine aortic valve replacement with fatigue and cough as well as productive sputum, was found to have multifocal pneumonia, thought to be hospital-acquired pneumonia. She was also found to be septic with elevated white count and fever. She was admitted to the hospitalist team and her hospital course by problem is as follows: 1. Sepsis. This is secondary to pulmonary source from her hospital-acquired pneumonia. She met criteria by an elevated white count and fever and her sepsis resolved within 24 hours. 2. Hospital acquired pneumonia. She met criteria for hospital-acquired pneumonia and given her recent hospitalization with aortic valve replacement, the patient started to have symptoms prior to her being discharged from [place]. Following IDSA guidelines, the patient was given broad spectrum with vancomycin, cefepime and was treated with azithromycin for 5 days with improvement in her leukocytosis in her symptoms. She will be discharged home with an additional 4 days of antibitoics to complete a 10 days course. Furthermore she has needed frequent prednisone tapers in the past and we have prescribed one for her to use as needed. She came in with oxygen requirement and this was titrated to room air by the day of discharge. 3. Hypertension. Her home medications were continued. 4. CVID. Possibly contributing to her susceptibility. She is also on prophylactic bactrim for freqeunt infections. She reports she is not on any immunlogic treatment. 5. Psoriatic arthritis, on Plaquenil, prophylactic Bactrim. The prednisone was held during hospitlization, but other medications were continued. 6. Recent coronary artery disease, status post PCI. The patient is on clopidogrel and statin. 7. Status post recent aortic valve replacement. She also had pacemaker insertion. She remains on Eliquis. A transthoracic echocardiogram was done, which was negative for vegetation. 8. Chronic pain, on long-term opiate pain medications. The patient's meds were continued. 9. Hypothyroidism. Her home Synthroid was continued. 10. DVT prophylaxis. The patient is on Eliquis given her recent aortic valve replacement. By the day of discharge, the patient is tolerating diet, ambulating without oxygen requirements, still has minor bronchitis symptoms, but generally amenable to over- the-counter treatment. She has no fever and white count has normalized and she is eager for discharge. LABS AND STUDIES DONE DURING THIS HOSPITALIZATION: Include a: 1. Chest thorax CTA on 06/20/19 with no PE, multilevel infiltrates, small right pleural effusion status post right mastectomy and distant cardiomegaly with aortic stent. 2. Chest x-ray on 06/20/19 showed low lung volumes as well as right hemidiaphragm and right-sided infiltrate. 3. Chest x-ray on 06/21/19 showed successful placement of the left PICC. 4. Transthoracic echocardiogram done on 06/21/19 showed left ventricle with normal wall thickness and cavity size. EF of 55% to 60%. Right ventricle with cavity mildly dilated. Systolic pressure mildly increased, status post recent aortic valve replacement, well seated with no evidence of vegetation. Mitral valve annulus appears mildly calcified and mild stenosis with mild regurgitation , but no obvious vegetations were seen. CONSULTATIONS DURING THIS HOSPITALIZATION: None. ITEMS TO FOLLOW UP ON STATUS POST DISCHARGE: 1. Resolution of hospital-acquired pneumonia. The patient was treated with IV antibiotics per IDSA guidelines for 7 days and from a bacterial infectious standpoint has done well. She continues to have mild bronchitis symptoms which , she can be discharged on oral antibiotics and option for prednisone taper in the future, furthermore can be treated with supportive care with primary care, who can follow up on these issues. 2. Status post recent AVR. The patient is on Eliquis, will need followup with cardiothoracic surgery to determine when Eliquis can be discontinued. 3. Med rec. The patient has numerous medications across numerous hospitalizations, would need thorough med rec. Primary care to determine that changes are communicated and understanding by the patient. TIME SPENT: Forty minutes was spent on the planning of this discharge with over half of that spent directly at the bedside of the patient providing direct patient care. Time Spent: 60 minutes were spent in the planning of this discharge over 1/2 of this spent on face to face care. If there are any questions about the care of this patient during this hospitalization, please do not hesitate to reach out and contact us directly, my cellphone is [phone]. [id number]/[facility] [facility] #: [id number] MTDD
[2019-06-26] MEDS: HYDROmorphone TAB* 2 MG PO SCH ×3 (02:24→16:07)
[2019-06-26] MEDS ORDERED: Vancomycin Trough Check NOTE FOLLOW UP ONE (04:30)
[2019-06-26] MEDS: Levothyroxine TAB* 137 MCG TAB PO SCH (04:50)
[2019-06-26] MEDS: Vancomycin(*) 1,250 MG in NS 0.9% 250 ML* 250 ML IVPB SCH (04:50)
[2019-06-26] MEDS: Cholecalciferol TAB* 1000 UNITS PO SCH (07:16)
[2019-06-26] MEDS: Atorvastatin* 40 MG TAB PO SCH (07:16)
[2019-06-26] MEDS: Clopidogrel TAB* 75 MG PO SCH (07:16)
[2019-06-26] MEDS: Multivitamins/Minerals TAB PO SCH (07:16)
[2019-06-26] MEDS: Docusate CAP* 100 MG PO SCH (07:16)
[2019-06-26] MEDS: Hydroxychloroquine TAB* 200 MG PO SCH (07:16)
[2019-06-26] MEDS: Cyanocobalamin TAB* 500 MCG PO SCH (07:17)
[2019-06-26] MEDS: Apixaban* 5 MG TAB PO SCH (07:17)
[2019-06-26] MEDS: hydrALAZINE TAB* 10 MG PO SCH ×2 (07:17→16:06)
[2019-06-26] MEDS: Montelukast Sodium TAB* 10 MG PO SCH (07:17)
[2019-06-26] MEDS: Mometasone/Formoter 200/5 MDI INH SCH (08:15)
[2019-06-26 08:45] VITALS: BP 143/68
[2019-06-26] MEDS: Metoprolol Succinate XL TAB* 25 MG PO SCH (11:46)
[2019-06-26] MEDS: HYDROmorphone TAB* 4 MG PO PRN (11:46)
[2019-06-26] MEDS: Cefepime 2 GM in Dextrose(*) 2 GM/50 ML BAG IV SCH (11:46)
--- NOTE | 2019-06-26 15:05 | PN ---
Hospitalist Progress Note Date of Service: 06/26/19 Discharge Day progress note: 78F PMH CVID, RA on plaquenil, chronic pain on [facility] opiates, hypothryodi, recent cardiac hx significant for recent aortic valve replacement and pacemaker insertion and CAD s/p PCI placement presented with sepsis 2/2 to HAP as she was recently d/c from [place] from above procedure overnight no acute events VSS This morning no acute complaints, discussed med changes and plan for PRN prednisone which she has used in the past. Answered all questions about discharge, tolerating diet and voiding freely. PE: Pleasant looking well Lungs: ild crackles in Left anu RRR no MRG Belly soft NT ND Ext warm and well perfused A/P: #Sepsis: Resolved #HAP: Total of 6 days of broad coverage, OK to d/c on home abx, pt herself says she goes on off/on prednisone, will be d/c on taper PRN #CVID: Hold pts Bactrim while getting tx dose abx #AVR: Recent on Eliquis #CAD sp PCI: On Clopidogrel and statin #Chronic pain: Home meds #Hypothyroid: Synthroid #DVT: On Eliquis #Code: Full Dispo: Plan for d/c to home, see d/c summary for med rec
== END 2019-06-26 16:41 | disposition home or self-care (01) | DRG 871 ==
LOC: ED 18:01 → MEDTELE 06-21 01:15
PROVIDERS: ADMIT Internal Medicine; ATTEND Internal Medicine
PROC: 05H433Z Insertion of Infusion Device into Left Innominate Vein, Percutaneous Approach (ICD-10-PCS; principal; 2019-06-21)
DX: A41.9 Sepsis, unspecified organism (principal); J18.9 Pneumonia, unspecified organism; D84.9 Immunodeficiency, unspecified; D80.1 Nonfamilial hypogammaglobulinemia; I27.0 Primary pulmonary hypertension; E87.1 Hypo-osmolality and hyponatremia; Y95 Nosocomial condition; I48.91 Unspecified atrial fibrillation; L40.50 Arthropathic psoriasis, unspecified; E78.5 Hyperlipidemia, unspecified; E03.9 Hypothyroidism, unspecified; F32.9 Major depressive disorder, single episode, unspecified; I25.10 Atherosclerotic heart disease of native coronary artery without angina pectoris; I50.9 Heart failure, unspecified; J44.9 Chronic obstructive pulmonary disease, unspecified; I11.0 Hypertensive heart disease with heart failure; G89.4 Chronic pain syndrome; Z96.653 Presence of artificial knee joint, bilateral; Z96.621 Presence of right artificial elbow joint; Z95.5 Presence of coronary angioplasty implant and graft; Z85.3 Personal history of malignant neoplasm of breast; Z95.0 Presence of cardiac pacemaker; Z86.14 Personal history of Methicillin resistant Staphylococcus aureus infection; Z95.3 Presence of xenogenic heart valve; Z79.02 Long term (current) use of antithrombotics/antiplatelets; Z79.51 Long term (current) use of inhaled steroids; Z79.52 Long term (current) use of systemic steroids; Z79.899 Other long term (current) drug therapy; Z88.1 Allergy status to other antibiotic agents; Z88.8 Allergy status to other drugs, medicaments and biological substances; Z91.048 Other nonmedicinal substance allergy status; Z82.49 Family history of ischemic heart disease and other diseases of the circulatory system; Z87.891 Personal history of nicotine dependence
CPT/HCPCS: 36415; 71045; 71046; 71275; 80048; 80053; 80202; 81003; 82565; 83880; 84484; 84520; 85025; 87040; 87070; 87077; 87205; 87641; 87899; 93005; 93306; 94640; 96365; 96375; 99284; A9270-GY; G8978-GP-CI; G8979-GP-CI; G8980-GP-CI; J0456; J0692; J0696; J2543; J3370

== ENCOUNTER 2020-05-01 21:14 | Inpatient (IN) ==
[2020-05-01 23:21] LABS: ABS Eosinophils 0.2 10^3/ul (0-0.6); ABS Lymphocytes 1.1 10^3/ul (1.0-4.8); ABS Neutrophils 5.7 10^3/ul (1.5-7.7); Eosinophil % 2.4 %; Hematocrit 35 % (35-47); Hemoglobin 11.8 g/dL (12.0-16.0); Lymphocyte % 13.9 %; Mean Corpuscular HGB Conc 34 g/dL (31-36); Mean Corpuscular Hemoglobin 30 pg (27-31); Mean Corpuscular Volume 88 fL (80-97); Mean Platelet Volume 7.5 fL (7.4-10.4); Platelet Count 175 10^3/uL (150-450); Red Blood Count 3.94 10^6 /uL (3.70-4.87); Red Cell Distribution Width 14 % (10-15)
[2020-05-01 23:27] LABS: Activated Partial Thrombo Time 33.9 seconds (26.0-38.0); INR 1.8 (0.82-1.09)
[2020-05-01 23:37] LABS: LDH 210 U/L (140-271)
[2020-05-01 23:38] LABS: ALT 24 U/L (7-52); AST 29 U/L (13-39); Albumin 3.7 g/dL (3.2-5.2); Albumin/Globulin Ratio 1.4 (1-3); Alkaline Phosphatase 76 U/L (34-104); Anion Gap 5 mmol/L (2-11); BUN/Creatinine Ratio 10.5 (8-20); Blood Urea Nitrogen 6 mg/dL (6-24); C Reactive Protein 91.56 mg/L (<8.01); CO2 Carbon Dioxide 29 mmol/L (22-32); Calcium 8.7 mg/dL (8.6-10.3); Chloride 92 mmol/L (101-111); Creatine Kinase 64 U/L (10-223); EGFR African American 123.8 (>60); EGFR Non-African American 102.3 (>60); Globulin 2.6 g/dL (2-4); Glucose 110 mg/dL (70-100); Potassium 4.4 mmol/L (3.5-5.0); Sodium 126 mmol/L (135-145); Total Protein 6.3 g/dL (6.4-8.9)
[2020-05-01 23:41] LABS: Influenza A Molecular Negative (Negative); Influenza B Molecular Negative (Negative)
[2020-05-01 23:42] LABS: Troponin I 0.03 ng/mL (<0.03)
[2020-05-01 23:58] LABS: Ferritin 186.3 ng/mL (11-307)
[2020-05-01] MEDS ORDERED: Iohexol 350 (CONTRAST) 500 ML MDV IV ONE (23:58)
[2020-05-02] MEDS ORDERED: Albuterol/Ipratropium NEB.SOL (2.5/0.5 MG) 3 ML NEB.SOLN INH ONE (02:32)
[2020-05-02] MEDS ORDERED: methylPREDNISolone 125 mg 2 ML VIAL IV ONE (02:32)
[2020-05-02] MEDS ORDERED: Albuterol 2.5mg/3 ml (0.083%) NEB.SOLN INH PRN (03:46)
[2020-05-02] MEDS ORDERED: Acetylcysteine ORAL SOL 200 mg/ml 30 ml VIAL INH PRN (03:48)
[2020-05-02] MEDS: Albuterol/Ipratropium NEB.SOL (2.5/0.5 MG) 3 ML NEB.SOLN INH SCH ×6 (04:33→23:30)
[2020-05-02] MEDS: cefTRIAXone 1 gm/50 mL NS BAG 1 GM/50 ML BAG IVPB SCH (05:22)
[2020-05-02] MEDS ORDERED: Iodixanol (CONTRAST) 320 MG/ML 100 ML SDV IV ONE (07:38)
[2020-05-02 10:30] LABS: ABS Lymphocytes 0.4 10^3/ul (1.0-4.8); ABS Monocytes 0.1 10^3/ul (0-0.8); ABS Neutrophils 6.3 10^3/ul (1.5-7.7); Eosinophil % 0.1 %; Hematocrit 34 % (35-47); Hemoglobin 12.1 g/dL (12.0-16.0); Lymphocyte % 5.1 %; Mean Corpuscular HGB Conc 35 g/dL (31-36); Mean Corpuscular Hemoglobin 31 pg (27-31); Mean Corpuscular Volume 87 fL (80-97); Mean Platelet Volume 7.3 fL (7.4-10.4); Platelet Count 158 10^3/uL (150-450); Red Blood Count 3.95 10^6 /uL (3.70-4.87); Red Cell Distribution Width 14 % (10-15); White Blood Count 6.8 10^3/uL (3.5-10.8)
[2020-05-02 11:00] LABS: Troponin I 0.03 ng/mL (<0.03)
[2020-05-02] MEDS ORDERED: Azithromycin 500 mg/250 ml NS 500 MG/250 ML BAG IVPB SCH (11:00)
[2020-05-02] MEDS: Mometasone/Formoter 200/5 MDI INH SCH ×2 (11:27→19:34)
[2020-05-02] MEDS: DULoxetine DR 30 mg CAP PO SCH (11:30)
[2020-05-02 13:09] LABS: Urine Appearance Clear; Urine Bilirubin Negative (Negative); Urine Blood Negative (Negative); Urine Color Yellow; Urine Glucose Negative (Negative); Urine Ketones Trace (Negative); Urine Nitrite Negative (Negative); Urine Protein Negative (Negative); Urine Specific Gravity 1.005 (1.010-1.030); Urine Urobilinogen Negative (Negative)
[2020-05-02 14:56] LABS: Anion Gap 11 mmol/L (2-11); BUN/Creatinine Ratio 15.7 (8-20); Blood Urea Nitrogen 8 mg/dL (6-24); CO2 Carbon Dioxide 25 mmol/L (22-32); Calcium 9.1 mg/dL (8.6-10.3); Chloride 93 mmol/L (101-111); EGFR African American 140.8 (>60); EGFR Non-African American 116.3 (>60); Glucose 225 mg/dL (70-100); Potassium 3.6 mmol/L (3.5-5.0); Sodium 129 mmol/L (135-145); Troponin I 0.03 ng/mL (<0.03)
[2020-05-02] MEDS: Azithromycin 500 mg/250 ml NS 500 MG/250 ML BAG IVPB SCH (15:24)
[2020-05-02 19:49] LABS: Troponin I 0.03 ng/mL (<0.03)
[2020-05-02] MEDS ORDERED: Magnesium Hydroxide LIQ 30 ML UDC PO PRN (22:59)
[2020-05-02] MEDS: Senna TAB 8.6 mg TAB PO SCH (23:11)
[2020-05-03] MEDS: Albuterol/Ipratropium NEB.SOL (2.5/0.5 MG) 3 ML NEB.SOLN INH SCH ×2 (04:16→08:04)
[2020-05-03] MEDS: cefTRIAXone 1 gm/50 mL NS BAG 1 GM/50 ML BAG IVPB SCH (06:32)
[2020-05-03 07:26] LABS: Hematocrit 31 % (35-47); Hemoglobin 10.8 g/dL (12.0-16.0); Mean Corpuscular HGB Conc 35 g/dL (31-36); Mean Corpuscular Hemoglobin 31 pg (27-31); Mean Corpuscular Volume 87 fL (80-97); Mean Platelet Volume 7.5 fL (7.4-10.4); Platelet Count 171 10^3/uL (150-450); Red Blood Count 3.51 10^6 /uL (3.70-4.87); Red Cell Distribution Width 13 % (10-15); White Blood Count 7.2 10^3/uL (3.5-10.8)
[2020-05-03] MEDS: DULoxetine DR 30 mg CAP PO SCH (07:39)
[2020-05-03] MEDS: Senna TAB 8.6 mg TAB PO SCH ×2 (07:41→20:15)
[2020-05-03 07:42] LABS: BUN/Creatinine Ratio 22.7 (8-20); Calcium 8.9 mg/dL (8.6-10.3); EGFR African American 166.9 (>60); EGFR Non-African American 137.9 (>60); Potassium 4.1 mmol/L (3.5-5.0)
[2020-05-03 07:59] LABS: ABS Lymphocytes 0.5 10^3/ul (1.0-4.8); ABS Monocytes 0.6 10^3/ul (0-0.8); ABS Neutrophils 6.3 10^3/ul (1.5-7.7); Lymphocyte % 7.1 %
[2020-05-03] MEDS: Mometasone/Formoter 200/5 MDI INH SCH ×2 (08:07→19:15)
[2020-05-03] MEDS ORDERED: Albuterol/Ipratropium NEB.SOL (2.5/0.5 MG) 3 ML NEB.SOLN INH PRN (08:18)
[2020-05-03] MEDS ORDERED: Magnesium CITRATE LIQ 300 ML BTL PO ONE ×2 (12:00→18:53)
[2020-05-03] MEDS: Azithromycin 500 mg/250 ml NS 500 MG/250 ML BAG IVPB SCH (14:56)
[2020-05-04] MEDS: cefTRIAXone 1 gm/50 mL NS BAG 1 GM/50 ML BAG IVPB SCH (05:15)
[2020-05-04] MEDS: Mometasone/Formoter 200/5 MDI INH SCH ×2 (07:38→19:21)
[2020-05-04 07:43] LABS: BUN/Creatinine Ratio 26.7 (8-20); Calcium 8.7 mg/dL (8.6-10.3); EGFR African American 162.6 (>60); EGFR Non-African American 134.4 (>60); Potassium 4.5 mmol/L (3.5-5.0)
[2020-05-04 08:07] LABS: Hematocrit 30 % (35-47); Hemoglobin 10.7 g/dL (12.0-16.0); Mean Corpuscular HGB Conc 36 g/dL (31-36); Mean Corpuscular Hemoglobin 31 pg (27-31); Mean Corpuscular Volume 87 fL (80-97); Mean Platelet Volume 7.5 fL (7.4-10.4); Platelet Count 204 10^3/uL (150-450); Red Blood Count 3.47 10^6 /uL (3.70-4.87); Red Cell Distribution Width 14 % (10-15); White Blood Count 7.8 10^3/uL (3.5-10.8)
[2020-05-04] MEDS: DULoxetine DR 30 mg CAP PO SCH (08:15)
[2020-05-04] MEDS: Senna TAB 8.6 mg TAB PO SCH ×2 (08:16→20:25)
[2020-05-04] MEDS: Azithromycin 500 mg/250 ml NS 500 MG/250 ML BAG IVPB SCH (14:33)
[2020-05-05] MEDS: cefTRIAXone 1 gm/50 mL NS BAG 1 GM/50 ML BAG IVPB SCH (05:39)
[2020-05-05 06:04] LABS: Calcium 8.5 mg/dL (8.6-10.3); Potassium 4.3 mmol/L (3.5-5.0)
[2020-05-05 06:10] LABS: BUN/Creatinine Ratio 22.2 (8-20); EGFR African American 162.6 (>60); EGFR Non-African American 134.4 (>60)
[2020-05-05] MEDS: Senna TAB 8.6 mg TAB PO SCH (07:30)
[2020-05-05] MEDS: DULoxetine DR 30 mg CAP PO SCH (07:30)
[2020-05-05] MEDS: Mometasone/Formoter 200/5 MDI INH SCH (08:32)
[2020-05-05] MEDS ORDERED: Polyethylene Glycol 3350 17 GM PACKET PO SCH (09:00)
[2020-05-05] MEDS: Azithromycin 500 mg/250 ml NS 500 MG/250 ML BAG IVPB SCH (14:26)
[2020-05-05 20:12] VITALS: BP 126/56
== END 2020-05-05 16:55 | disposition home health service (06) | DRG 190 ==
LOC: ED 21:14 → MED 05-02 03:42
PROVIDERS: ADMIT Internal Medicine; ATTEND Internal Medicine

== ENCOUNTER 2020-07-17 04:48 | Inpatient (IN) ==
[2020-07-17] MEDS ORDERED: methylPREDNISolone 125 mg 2 ML VIAL IV ONE (04:54)
[2020-07-17 06:15] LABS: ABS Eosinophils 0.2 10^3/ul (0-0.6); ABS Lymphocytes 1.2 10^3/ul (1.0-4.8); ABS Monocytes 0.7 10^3/ul (0-0.8); ABS Neutrophils 4.9 10^3/ul (1.5-7.7); Eosinophil % 2.5 %; Hematocrit 35 % (35-47); Hemoglobin 11.7 g/dL (12.0-16.0); Lymphocyte % 17.6 %; Mean Corpuscular HGB Conc 34 g/dL (31-36); Mean Corpuscular Hemoglobin 30 pg (27-31); Mean Corpuscular Volume 88 fL (80-97); Mean Platelet Volume 7.8 fL (7.4-10.4); Platelet Count 138 10^3/uL (150-450); Red Blood Count 3.93 10^6 /uL (3.70-4.87); Red Cell Distribution Width 15 % (10-15)
[2020-07-17 06:21] LABS: INR 1.85 (0.82-1.09)
[2020-07-17 06:29] LABS: Troponin I 0.02 ng/mL (<0.03)
[2020-07-17 06:30] LABS: Albumin 3.6 g/dL (3.2-5.2); Albumin/Globulin Ratio 1.3 (1-3); BUN/Creatinine Ratio 15.5 (8-20); C Reactive Protein 60.23 mg/L (<8.01); Calcium 8.8 mg/dL (8.6-10.3); EGFR African American 121.3 (>60); EGFR Non-African American 100.3 (>60); Globulin 2.7 g/dL (2-4); Total Bilirubin 0.6 mg/dL (0.2-1.0); Total Protein 6.3 g/dL (6.4-8.9)
[2020-07-17] MEDS ORDERED: Furosemide 20 mg/2 ml IV VIAL IV SLOW PU ONE (06:39)
[2020-07-17 06:40] LABS: Influenza A Molecular Negative (Negative); Influenza B Molecular Negative (Negative)
[2020-07-17] MEDS ORDERED: Iohexol 350 (CONTRAST) 500 ML MDV IV ONE (06:45)
[2020-07-17] MEDS ORDERED: Cefepime 1 GM in Dextrose 1 GM/50 ML BAG IV ONE (08:47)
[2020-07-17] MEDS ORDERED: Fluticasone/Vilanterol MDI(NF) 200/25 MDI INH SCH (11:00)
[2020-07-17] MEDS ORDERED: Piperacillin/Tazobac ADVAN 3.375 GM in NS 0.9% 100 ml BAG 100 ML IV ONE (11:06)
[2020-07-17] MEDS ORDERED: Polyethylene Glycol 3350 17 GM PACKET PO PRN (11:16)
[2020-07-17] MEDS ORDERED: Zosyn per Pharmacy NOTE FOLLOW UP SCH (12:00)
[2020-07-17] MEDS: Acetylcysteine INH SOL (RT) 200 MG/ML 4 ML VIAL INH SCH ×2 (13:01→19:23)
[2020-07-17] MEDS: Mometasone/Formoter 200/5 MDI INH SCH ×2 (13:01→19:24)
[2020-07-17] MEDS: Azithromycin 500 mg/250 ml NS 500 MG/250 ML BAG IVPB SCH (13:27)
[2020-07-17] MEDS: DULoxetine DR 30 mg CAP PO SCH (17:19)
[2020-07-17] MEDS: ZOSYN 3.375 GM Q8H per EXTENDED INFUSION IV SCH (17:21)
[2020-07-18] MEDS: Acetylcysteine INH SOL (RT) 200 MG/ML 4 ML VIAL INH SCH ×4 (01:02→20:04)
[2020-07-18] MEDS: Albuterol 2.5mg/3 ml (0.083%) NEB.SOLN INH PRN ×4 (01:40→20:03)
[2020-07-18] MEDS: ZOSYN 3.375 GM Q8H per EXTENDED INFUSION IV SCH ×3 (01:43→18:04)
[2020-07-18 04:32] LABS: ABS Lymphocytes 0.4 10^3/ul (1.0-4.8); ABS Monocytes 0.7 10^3/ul (0-0.8); ABS Neutrophils 8.1 10^3/ul (1.5-7.7); Hematocrit 32 % (35-47); Hemoglobin 10.7 g/dL (12.0-16.0); Lymphocyte % 4.9 %; Mean Corpuscular HGB Conc 34 g/dL (31-36); Mean Corpuscular Hemoglobin 30 pg (27-31); Mean Corpuscular Volume 87 fL (80-97); Mean Platelet Volume 8.2 fL (7.4-10.4); Platelet Count 138 10^3/uL (150-450); Red Cell Distribution Width 14 % (10-15); White Blood Count 9.3 10^3/uL (3.5-10.8)
[2020-07-18 04:46] LABS: BUN/Creatinine Ratio 20.4 (8-20); Blood Urea Nitrogen 10 mg/dL (6-24); CO2 Carbon Dioxide 27 mmol/L (22-32); Calcium 8.4 mg/dL (8.6-10.3); Chloride 98 mmol/L (101-111); EGFR African American 147.4 (>60); EGFR Non-African American 121.8 (>60); Glucose 118 mg/dL (70-100); Sodium 131 mmol/L (135-145)
[2020-07-18 04:59] LABS: Anion Gap 6 mmol/L (2-11)
[2020-07-18] MEDS: Mometasone/Formoter 200/5 MDI INH SCH ×2 (07:22→20:08)
[2020-07-18] MEDS: Azithromycin 500 mg/250 ml NS 500 MG/250 ML BAG IVPB SCH (14:48)
[2020-07-18] MEDS: DULoxetine DR 30 mg CAP PO SCH (18:03)
[2020-07-18] MEDS ORDERED: Lidocaine PATCH 5% PATCH TRANSDERM ONE (22:02)
[2020-07-19] MEDS: ZOSYN 3.375 GM Q8H per EXTENDED INFUSION IV SCH ×4 (00:45→23:38)
[2020-07-19] MEDS: Acetylcysteine INH SOL (RT) 200 MG/ML 4 ML VIAL INH SCH ×4 (01:41→20:16)
[2020-07-19 04:07] LABS: ABS Lymphocytes 0.7 10^3/ul (1.0-4.8); ABS Monocytes 0.8 10^3/ul (0-0.8); Eosinophil % 0.5 %; Hematocrit 29 % (35-47); Hemoglobin 9.9 g/dL (12.0-16.0); Lymphocyte % 8.2 %; Mean Corpuscular HGB Conc 34 g/dL (31-36); Mean Corpuscular Hemoglobin 30 pg (27-31); Mean Corpuscular Volume 86 fL (80-97); Platelet Count 144 10^3/uL (150-450); Red Blood Count 3.34 10^6 /uL (3.70-4.87); Red Cell Distribution Width 15 % (10-15); White Blood Count 8.6 10^3/uL (3.5-10.8)
[2020-07-19 04:32] LABS: Anion Gap 4 mmol/L (2-11); BUN/Creatinine Ratio 19.1 (8-20); Blood Urea Nitrogen 9 mg/dL (6-24); CO2 Carbon Dioxide 30 mmol/L (22-32); Chloride 98 mmol/L (101-111); EGFR African American 154.7 (>60); EGFR Non-African American 127.8 (>60); Glucose 116 mg/dL (70-100); Magnesium 1.6 mg/dL (1.9-2.7); Potassium 3.4 mmol/L (3.5-5.0); Sodium 132 mmol/L (135-145)
[2020-07-19] MEDS ORDERED: Potassium Chlor 20 meq TAB.ER PO ONE (04:38)
[2020-07-19] MEDS ORDERED: Magnesium Sulfate IV 3 GM in NS 0.9% 100 ml BAG 100 ML IVPB ONE (04:38)
[2020-07-19] MEDS: Albuterol 2.5mg/3 ml (0.083%) NEB.SOLN INH PRN ×2 (08:18→17:30)
[2020-07-19] MEDS: Mometasone/Formoter 200/5 MDI INH SCH ×2 (08:18→20:16)
[2020-07-19 09:42] LABS: Ferritin 156.7 ng/mL (11-307)
[2020-07-19] MEDS ORDERED: Lidocaine Patch REMOVE PATCH PATCH OFF SCH (10:00)
[2020-07-19 10:12] LABS: Total Iron Binding Capacity 210 mcg/dL (250-450); Transferrin 150 mg/dL (203-362)
[2020-07-19] MEDS: Azithromycin 500 mg/250 ml NS 500 MG/250 ML BAG IVPB SCH (15:32)
[2020-07-19] MEDS ORDERED: Albuterol/Ipratropium NEB.SOL (2.5/0.5 MG) 3 ML NEB.SOLN INH SCH (17:28)
[2020-07-19] MEDS: DULoxetine DR 30 mg CAP PO SCH (17:43)
[2020-07-19] MEDS: Albuterol/Ipratropium NEB.SOL (2.5/0.5 MG) 3 ML NEB.SOLN INH SCH (20:16)
[2020-07-20] MEDS: Albuterol/Ipratropium NEB.SOL (2.5/0.5 MG) 3 ML NEB.SOLN INH SCH ×7 (03:16→23:06)
[2020-07-20] MEDS: Acetylcysteine INH SOL (RT) 200 MG/ML 4 ML VIAL INH SCH ×4 (03:16→11:01)
[2020-07-20 04:52] LABS: ABS Eosinophils 0.1 10^3/ul (0-0.6); ABS Lymphocytes 0.8 10^3/ul (1.0-4.8); ABS Monocytes 0.9 10^3/ul (0-0.8); ABS Neutrophils 6.8 10^3/ul (1.5-7.7); Eosinophil % 1.2 %; Hematocrit 30 % (35-47); Lymphocyte % 9.1 %; Mean Corpuscular HGB Conc 34 g/dL (31-36); Mean Corpuscular Hemoglobin 29 pg (27-31); Mean Corpuscular Volume 87 fL (80-97); Mean Platelet Volume 7.7 fL (7.4-10.4); Platelet Count 141 10^3/uL (150-450); Red Cell Distribution Width 14 % (10-15); White Blood Count 8.7 10^3/uL (3.5-10.8)
[2020-07-20 05:09] LABS: % Iron Saturation 6 % (15-55); BUN/Creatinine Ratio 19.5 (8-20); Calcium 8.1 mg/dL (8.6-10.3); EGFR African American 181.1 (>60); EGFR Non-African American 149.6 (>60); Iron 13 ug/dL (50-212); Magnesium 1.8 mg/dL (1.9-2.7); Potassium 3.8 mmol/L (3.5-5.0); Total Iron Binding Capacity 207 mcg/dL (250-450); Unsaturated Iron Binding < 192 ug/dL
[2020-07-20 05:10] LABS: Transferrin 148 mg/dL (203-362)
[2020-07-20] MEDS: Albuterol 2.5mg/3 ml (0.083%) NEB.SOLN INH PRN (08:07)
[2020-07-20] MEDS: Mometasone/Formoter 200/5 MDI INH SCH ×2 (08:07→19:14)
[2020-07-20] MEDS ORDERED: Magnesium Sulfate 2 gm BAG 2 GM/50 ML BAG IVPB ONE (08:13)
[2020-07-20] MEDS: ZOSYN 3.375 GM Q8H per EXTENDED INFUSION IV SCH ×2 (10:09→17:05)
[2020-07-20] MEDS ORDERED: Sodium Chloride(INHALANT) 3% 4 ML NEB.SOLN INH ONE (10:57)
[2020-07-20] MEDS ORDERED: Furosemide 20 mg/2 ml IV VIAL IV ONE (11:04)
[2020-07-20] MEDS ORDERED: Senna TAB 8.6 mg TAB PO PRN (11:50)
[2020-07-20] MEDS: Sulfamethox/Trimethoprim DS TAB 800/160 mg PO SCH (12:04)
[2020-07-20] MEDS ORDERED: Magnesium Sulfate IV 1GM/100ML 1 GM/100 ML BAG IV ONE (12:10)
[2020-07-20 17:35] LABS: BUN/Creatinine Ratio 16.7 (8-20); Calcium 8.3 mg/dL (8.6-10.3); EGFR Non-African American 124.8 (>60); Potassium 3.7 mmol/L (3.5-5.0)
[2020-07-20] MEDS: DULoxetine DR 30 mg CAP PO SCH (18:14)
[2020-07-20] MEDS: Azithromycin 500 mg/250 ml NS 500 MG/250 ML BAG IVPB SCH (21:23)
[2020-07-21] MEDS: ZOSYN 3.375 GM Q8H per EXTENDED INFUSION IV SCH ×3 (00:33→16:11)
[2020-07-21] MEDS: Albuterol/Ipratropium NEB.SOL (2.5/0.5 MG) 3 ML NEB.SOLN INH SCH ×5 (02:37→19:36)
[2020-07-21 05:18] LABS: Calcium 8.1 mg/dL (8.6-10.3); Magnesium 1.9 mg/dL (1.9-2.7); Potassium 3.3 mmol/L (3.5-5.0)
[2020-07-21 05:24] LABS: BUN/Creatinine Ratio 21.4 (8-20); EGFR African American 176.1 (>60); EGFR Non-African American 145.5 (>60); Phosphorus 2.3 mg/dL (2.5-5.0)
[2020-07-21] MEDS ORDERED: Magnesium Sulfate IV 1GM/100ML 1 GM/100 ML BAG IV ONE (05:25)
[2020-07-21] MEDS ORDERED: Potassium Chlor 20 meq TAB.ER PO ONE (05:25)
[2020-07-21] MEDS: Mometasone/Formoter 200/5 MDI INH SCH ×2 (07:07→19:36)
[2020-07-21] MEDS: Ferrous Sulfate DROPS 15 MG/ML PO SCH (08:13)
[2020-07-21] MEDS: Sulfamethox/Trimethoprim DS TAB 800/160 mg PO SCH (08:13)
[2020-07-21] MEDS: DOXYcycline 100 MG in NS 0.9% 250 ml 250 ML IVPB SCH (12:36)
[2020-07-21] MEDS ORDERED: Furosemide 20 mg/2 ml IV VIAL IV ONE (15:38)
[2020-07-21] MEDS ORDERED: Potassium Chloride LIQUID 20 MEQ/15 ML LIQUID PO ONE ×2 (15:43→16:01)
[2020-07-21] MEDS: DULoxetine DR 30 mg CAP PO SCH (17:47)
[2020-07-22] MEDS: Albuterol/Ipratropium NEB.SOL (2.5/0.5 MG) 3 ML NEB.SOLN INH SCH ×2 (00:46→03:22)
[2020-07-22] MEDS: DOXYcycline 100 MG in NS 0.9% 250 ml 250 ML IVPB SCH (00:52)
[2020-07-22] MEDS: ZOSYN 3.375 GM Q8H per EXTENDED INFUSION IV SCH ×3 (02:37→17:23)
[2020-07-22] MEDS: Albuterol 2.5mg/3 ml (0.083%) NEB.SOLN INH PRN ×2 (07:53→21:37)
[2020-07-22] MEDS: Mometasone/Formoter 200/5 MDI INH SCH ×2 (08:47→19:40)
[2020-07-22 08:58] LABS: Calcium 8.6 mg/dL (8.6-10.3); EGFR African American 186.3 (>60); Magnesium 1.7 mg/dL (1.9-2.7); Potassium 4.1 mmol/L (3.5-5.0)
[2020-07-22] MEDS: Ferrous Sulfate DROPS 15 MG/ML PO SCH (10:19)
[2020-07-22] MEDS: Sulfamethox/Trimethoprim DS TAB 800/160 mg PO SCH (10:19)
[2020-07-22] MEDS ORDERED: DOXYcycline 100 MG in NS 0.9% 250 ml 250 ML IVPB SCH (14:00)
[2020-07-22] MEDS: DULoxetine DR 30 mg CAP PO SCH (17:27)
[2020-07-23] MEDS: DOXYcycline 100 MG in NS 0.9% 250 ml 250 ML IVPB SCH ×3 (00:25→23:16)
[2020-07-23] MEDS: ZOSYN 3.375 GM Q8H per EXTENDED INFUSION IV SCH ×2 (02:05→10:57)
[2020-07-23 05:56] LABS: ABS Lymphocytes 0.7 10^3/ul (1.0-4.8); ABS Monocytes 0.9 10^3/ul (0-0.8); ABS Neutrophils 5.6 10^3/ul (1.5-7.7); Hematocrit 31 % (35-47); Hemoglobin 10.4 g/dL (12.0-16.0); Lymphocyte % 9.5 %; Mean Corpuscular HGB Conc 33 g/dL (31-36); Mean Corpuscular Hemoglobin 29 pg (27-31); Mean Corpuscular Volume 88 fL (80-97); Mean Platelet Volume 7.2 fL (7.4-10.4); Platelet Count 234 10^3/uL (150-450); Red Blood Count 3.55 10^6 /uL (3.70-4.87); Red Cell Distribution Width 15 % (10-15); White Blood Count 7.1 10^3/uL (3.5-10.8)
[2020-07-23 06:19] LABS: BUN/Creatinine Ratio 24.3 (8-20); Calcium 8.8 mg/dL (8.6-10.3); EGFR African American 203.8 (>60); EGFR Non-African American 168.5 (>60); Magnesium 1.6 mg/dL (1.9-2.7); Potassium 4.2 mmol/L (3.5-5.0)
[2020-07-23] MEDS ORDERED: Magnesium Sulfate 2 gm BAG 2 GM/50 ML BAG IVPB ONE (07:22)
[2020-07-23] MEDS: Ferrous Sulfate DROPS 15 MG/ML PO SCH (08:49)
[2020-07-23] MEDS: Sulfamethox/Trimethoprim DS TAB 800/160 mg PO SCH (09:07)
[2020-07-23] MEDS: Mometasone/Formoter 200/5 MDI INH SCH ×3 (09:56→19:36)
[2020-07-23] MEDS: Albuterol 2.5mg/3 ml (0.083%) NEB.SOLN INH PRN ×3 (10:04→19:37)
[2020-07-23] MEDS ORDERED: Furosemide 20 mg/2 ml IV VIAL IV SLOW PU ONE (12:50)
[2020-07-23] MEDS: cefTRIAXone 1 gm/50 mL NS BAG 1 GM/50 ML BAG IVPB SCH (15:36)
[2020-07-23] MEDS: Sodium Chloride(INHALANT) 7% 4 ML NEB.SOLN INH SCH ×2 (15:59→19:36)
[2020-07-23] MEDS: DULoxetine DR 30 mg CAP PO SCH (16:51)
[2020-07-24] MEDS: Sodium Chloride(INHALANT) 7% 4 ML NEB.SOLN INH SCH ×4 (04:14→20:20)
[2020-07-24 05:33] LABS: Hematocrit 31 % (35-47); Hemoglobin 10.4 g/dL (12.0-16.0); Mean Corpuscular HGB Conc 34 g/dL (31-36); Mean Corpuscular Hemoglobin 29 pg (27-31); Mean Corpuscular Volume 87 fL (80-97); Mean Platelet Volume 7.3 fL (7.4-10.4); Platelet Count 264 10^3/uL (150-450); Red Blood Count 3.53 10^6 /uL (3.70-4.87); Red Cell Distribution Width 15 % (10-15); White Blood Count 7.7 10^3/uL (3.5-10.8)
[2020-07-24 05:56] LABS: BUN/Creatinine Ratio 27.3 (8-20); Calcium 8.8 mg/dL (8.6-10.3); EGFR African American 166.9 (>60); EGFR Non-African American 137.9 (>60); Magnesium 1.8 mg/dL (1.9-2.7); Potassium 4.4 mmol/L (3.5-5.0)
[2020-07-24] MEDS ORDERED: Magnesium Sulfate IV 1GM/100ML 1 GM/100 ML BAG IV ONE (08:09)
[2020-07-24] MEDS: Albuterol 2.5mg/3 ml (0.083%) NEB.SOLN INH PRN ×3 (09:13→20:19)
[2020-07-24] MEDS: Mometasone/Formoter 200/5 MDI INH SCH ×2 (09:13→20:20)
[2020-07-24] MEDS ORDERED: Furosemide 20 mg/2 ml IV VIAL IV SLOW PU ONE (09:14)
[2020-07-24] MEDS: Sulfamethox/Trimethoprim DS TAB 800/160 mg PO SCH (09:43)
[2020-07-24] MEDS: Ferrous Sulfate DROPS 15 MG/ML PO SCH (10:56)
[2020-07-24] MEDS: DOXYcycline 100 MG in NS 0.9% 250 ml 250 ML IVPB SCH (12:23)
[2020-07-24] MEDS: cefTRIAXone 1 gm/50 mL NS BAG 1 GM/50 ML BAG IVPB SCH (15:32)
[2020-07-24] MEDS: DULoxetine DR 30 mg CAP PO SCH (18:33)
[2020-07-25] MEDS: DOXYcycline 100 MG in NS 0.9% 250 ml 250 ML IVPB SCH ×2 (00:04→12:22)
[2020-07-25] MEDS: Sodium Chloride(INHALANT) 7% 4 ML NEB.SOLN INH SCH ×4 (00:52→20:39)
[2020-07-25 07:38] LABS: BUN/Creatinine Ratio 27.5 (8-20); EGFR African American 186.3 (>60); Magnesium 1.7 mg/dL (1.9-2.7); Potassium 3.6 mmol/L (3.5-5.0)
[2020-07-25 07:41] LABS: ABS Eosinophils 0.1 10^3/ul (0-0.6); ABS Lymphocytes 1.3 10^3/ul (1.0-4.8); ABS Monocytes 1.2 10^3/ul (0-0.8); ABS Neutrophils 8.1 10^3/ul (1.5-7.7); Hematocrit 34 % (35-47); Hemoglobin 11.4 g/dL (12.0-16.0); Lymphocyte % 12.5 %; Mean Corpuscular HGB Conc 33 g/dL (31-36); Mean Corpuscular Hemoglobin 29 pg (27-31); Mean Corpuscular Volume 87 fL (80-97); Mean Platelet Volume 6.9 fL (7.4-10.4); Platelet Count 331 10^3/uL (150-450); Red Blood Count 3.92 10^6 /uL (3.70-4.87); Red Cell Distribution Width 15 % (10-15); White Blood Count 10.7 10^3/uL (3.5-10.8)
[2020-07-25] MEDS ORDERED: Magnesium Sulfate IV 1GM/100ML 1 GM/100 ML BAG IV ONE (07:57)
[2020-07-25] MEDS: Mometasone/Formoter 200/5 MDI INH SCH ×2 (08:32→20:39)
[2020-07-25] MEDS: Albuterol 2.5mg/3 ml (0.083%) NEB.SOLN INH PRN ×2 (08:46→20:39)
[2020-07-25] MEDS ORDERED: Furosemide 20 mg/2 ml IV VIAL IV SLOW PU ONE (09:59)
[2020-07-25] MEDS: Ferrous Sulfate DROPS 15 MG/ML PO SCH (10:27)
[2020-07-25] MEDS: Sulfamethox/Trimethoprim DS TAB 800/160 mg PO SCH (10:27)
[2020-07-25] MEDS ORDERED: Albuterol/Ipratropium NEB.SOL (2.5/0.5 MG) 3 ML NEB.SOLN ONE (15:50)
[2020-07-25] MEDS: Albuterol/Ipratropium NEB.SOL (2.5/0.5 MG) 3 ML NEB.SOLN INH PRN (15:53)
[2020-07-25] MEDS ORDERED: Succinylcholine 200 mg VIAL 20 mg/ml 10 ml VIAL (200 mg) ONE (15:56)
[2020-07-25] MEDS ORDERED: Lidocaine 2% PF 5 ML VIAL ONE (15:56)
[2020-07-25] MEDS ORDERED: Midazolam 5 mg/5 ml VIAL 1 mg/ml 5 ml VIAL (5 mg) ONE (15:57)
[2020-07-25] MEDS ORDERED: Midazolam 2 mg/2 ml VIAL 1 mg/ml 2 ml VIAL (2 mg) ONE (15:57)
[2020-07-25] MEDS ORDERED: Propofol 10 MG/ML 20 ML BTL ONE (16:13)
[2020-07-25] MEDS ORDERED: Lidocaine 1% VIAL 10 MG/ML VIAL ONE (16:23)
[2020-07-25] MEDS ORDERED: Lidocaine 2% PF 10 ML AMP ONE (16:24)
[2020-07-25] MEDS ORDERED: Lidocaine 2% JELLY 6 ML TOPICAL ONE (16:24)
[2020-07-25] MEDS ORDERED: Ondansetron 4 mg VIAL 2 MG/ML 2 ml VIAL ONE (16:43)
[2020-07-25] MEDS ORDERED: Dexamethasone IV 4 MG/ML VIAL 1 ml VIAL ONE (16:43)
[2020-07-25] MEDS: DULoxetine DR 30 mg CAP PO SCH (18:30)
[2020-07-25] MEDS: cefTRIAXone 1 gm/50 mL NS BAG 1 GM/50 ML BAG IVPB SCH (18:30)
[2020-07-26] MEDS: Sodium Chloride(INHALANT) 7% 4 ML NEB.SOLN INH SCH ×3 (01:05→12:10)
[2020-07-26] MEDS: Heparin 5000 UNITS/ML 1 mL VIAL SUBCUT SCH ×2 (05:54→12:57)
[2020-07-26] MEDS: Mometasone/Formoter 200/5 MDI INH SCH (08:46)
[2020-07-26] MEDS: Sulfamethox/Trimethoprim DS TAB 800/160 mg PO SCH (10:34)
[2020-07-26 11:53] VITALS: BP 141/71
[2020-07-26] MEDS ORDERED: Ferrous Sulfate DROPS 15 MG/ML PO SCH (12:00)
[2020-07-26] MEDS: Albuterol/Ipratropium NEB.SOL (2.5/0.5 MG) 3 ML NEB.SOLN INH PRN (12:10)
[2020-07-26] MEDS ORDERED: Magnesium Sulfate 2 gm BAG 2 GM/50 ML BAG IVPB ONE (12:38)
[2020-07-26] MEDS ORDERED: cefTRIAXone 1 gm/50 mL NS BAG 1 GM/50 ML BAG IVPB SCH (18:00)
== END 2020-07-26 17:07 | disposition home or self-care (01) | DRG 177 ==
LOC: ED 04:48 → ICU 10:51 → MEDTELE 07-21 21:11
PROVIDERS: ADMIT Internal Medicine; ATTEND Internal Medicine

== ENCOUNTER 2020-08-25 13:48 | Inpatient (IN) ==
[2020-08-25 14:50] LABS: ABS Lymphocytes 0.3 10^3/ul (1.0-4.8); ABS Monocytes 0.7 10^3/ul (0-0.8); ABS Neutrophils 7.3 10^3/ul (1.5-7.7); Eosinophil % 0.1 %; Hematocrit 30 % (35-47); Hemoglobin 10.1 g/dL (12.0-16.0); Lymphocyte % 4.1 %; Mean Corpuscular HGB Conc 34 g/dL (31-36); Mean Corpuscular Hemoglobin 29 pg (27-31); Mean Corpuscular Volume 87 fL (80-97); Mean Platelet Volume 7.2 fL (7.4-10.4); Platelet Count 212 10^3/uL (150-450); Red Blood Count 3.43 10^6 /uL (3.70-4.87); Red Cell Distribution Width 15 % (10-15); White Blood Count 8.4 10^3/uL (3.5-10.8)
[2020-08-25 15:12] LABS: Activated Partial Thrombo Time 31.9 seconds (26.0-38.0); INR 2.21 (0.82-1.09)
[2020-08-25 15:20] LABS: Ferritin 105.1 ng/mL (11-307)
[2020-08-25 15:29] LABS: Troponin I 0.03 ng/mL (<0.03)
[2020-08-25 15:32] LABS: ALT 19 U/L (7-52); AST 31 U/L (13-39); Albumin 3.7 g/dL (3.2-5.2); Albumin/Globulin Ratio 1.5 (1-3); Alkaline Phosphatase 74 U/L (34-104); Anion Gap 6 mmol/L (2-11); BUN/Creatinine Ratio 13.6 (8-20); Blood Urea Nitrogen 9 mg/dL (6-24); C Reactive Protein 135.15 mg/L (<8.01); CO2 Carbon Dioxide 28 mmol/L (22-32); Calcium 8.9 mg/dL (8.6-10.3); Chloride 95 mmol/L (101-111); EGFR African American 104.5 (>60); EGFR Non-African American 86.4 (>60); Globulin 2.4 g/dL (2-4); Glucose 121 mg/dL (70-100); Potassium 4.2 mmol/L (3.5-5.0); Sodium 129 mmol/L (135-145); Total Protein 6.1 g/dL (6.4-8.9)
[2020-08-25 15:37] LABS: LDH 297 U/L (140-271)
[2020-08-25 16:45] LABS: Urine Appearance Cloudy; Urine Bilirubin Negative (Negative); Urine Blood Negative (Negative); Urine Color Yellow; Urine Glucose Negative (Negative); Urine Ketones Negative (Negative); Urine Nitrite Negative (Negative); Urine Protein Negative (Negative); Urine Urobilinogen Negative (Negative)
[2020-08-25 16:51] LABS: Urine Bacteria Absent (Absent); Urine Red Blood Cell Trace(0-2/hpf) (Absent); Urine Squamous Epithelial Cell Present (Absent); Urine White Blood Cell 3+(>20/hpf) (Absent)
[2020-08-25 16:57] LABS: Influenza A Molecular Negative (Negative); Influenza B Molecular Negative (Negative)
[2020-08-25] MEDS ORDERED: Piperacillin/Tazobac ADVAN 3.375 GM in NS 0.9% 100 ml BAG 100 ML IV ONE (17:20)
[2020-08-25] MEDS ORDERED: Vancomycin 1,000 MG in NS 0.9% 250 ml 250 ML IVPB ONE (17:21)
[2020-08-25] MEDS ORDERED: Vancomycin per Pharmacy 1 EA NOTE FOLLOW UP SCH (18:00)
[2020-08-25] MEDS ORDERED: Zosyn per Pharmacy NOTE FOLLOW UP SCH (18:00)
[2020-08-25] MEDS ORDERED: Vancomycin 1,250 MG in NS 0.9% 250 ml 250 ML IVPB ONE (18:00)
[2020-08-25] MEDS ORDERED: NS 0.9% 1000 ml BAG 1,000 ML IV SCH (18:15)
[2020-08-25] MEDS ORDERED: Albuterol HFA INHALER 8 gm MDI INH PRN (19:05)
[2020-08-25] MEDS ORDERED: Acetylcysteine INHALATION SOL 200 MG/ML NEB.SOLN 10 ML INH PRN (19:12)
[2020-08-25] MEDS ORDERED: HYDROMORPHONE PO SCH (21:00)
[2020-08-25] MEDS: ZOSYN 3.375 GM Q8H per EXTENDED INFUSION IV SCH (22:39)
[2020-08-25] MEDS: DULoxetine DR 30 mg CAP PO SCH (22:39)
[2020-08-26] MEDS: ZOSYN 3.375 GM Q8H per EXTENDED INFUSION IV SCH ×3 (05:20→22:37)
[2020-08-26 06:53] LABS: Potassium 4.1 mmol/L (3.5-5.0)
[2020-08-26 06:57] LABS: ABS Lymphocytes 0.3 10^3/ul (1.0-4.8); ABS Monocytes 0.3 10^3/ul (0-0.8); ABS Neutrophils 6.2 10^3/ul (1.5-7.7); Hematocrit 32 % (35-47); Hemoglobin 10.7 g/dL (12.0-16.0); Lymphocyte % 4.4 %; Mean Corpuscular HGB Conc 33 g/dL (31-36); Mean Corpuscular Hemoglobin 30 pg (27-31); Mean Corpuscular Volume 90 fL (80-97); Mean Platelet Volume 7.3 fL (7.4-10.4); Nucleated Red Blood Cells % 0.1; Platelet Count 175 10^3/uL (150-450); Red Cell Distribution Width 15 % (10-15); White Blood Count 6.8 10^3/uL (3.5-10.8)
[2020-08-26 06:58] LABS: BUN/Creatinine Ratio 18.2 (8-20); EGFR African American 166.9 (>60); EGFR Non-African American 137.9 (>60)
[2020-08-26] MEDS ORDERED: Vancomycin 1000 MG in NS 0.9% 250 ML IVPB SCH (07:00)
[2020-08-26] MEDS: Cholecalciferol (VIT D3) 1,000 unit TAB PO SCH (07:41)
[2020-08-26] MEDS: Sulfamethox/Trimethoprim SS TAB 400/80 mg PO SCH (07:42)
[2020-08-26] MEDS ORDERED: HYDROMORPHONE PO SCH (09:00)
[2020-08-26] MEDS ORDERED: Albuterol/Ipratropium NEB.SOL (2.5/0.5 MG) 3 ML NEB.SOLN INH PRN (09:15)
[2020-08-26] MEDS: DULoxetine DR 30 mg CAP PO SCH (16:37)
[2020-08-26] MEDS ORDERED: Albuterol HFA INHALER 8 gm MDI INH PRN (16:39)
[2020-08-27] MEDS: ZOSYN 3.375 GM Q8H per EXTENDED INFUSION IV SCH ×3 (06:13→21:53)
[2020-08-27] MEDS ORDERED: Vancomycin Trough Check NOTE FOLLOW UP ONE (06:30)
[2020-08-27 06:44] LABS: ABS Lymphocytes 0.7 10^3/ul (1.0-4.8); ABS Monocytes 0.8 10^3/ul (0-0.8); ABS Neutrophils 6.2 10^3/ul (1.5-7.7); Eosinophil % 0.1 %; Hematocrit 28 % (35-47); Hemoglobin 9.2 g/dL (12.0-16.0); Lymphocyte % 9.5 %; Mean Corpuscular HGB Conc 34 g/dL (31-36); Mean Corpuscular Hemoglobin 29 pg (27-31); Mean Corpuscular Volume 87 fL (80-97); Platelet Count 204 10^3/uL (150-450); Red Blood Count 3.18 10^6 /uL (3.70-4.87); Red Cell Distribution Width 15 % (10-15); White Blood Count 7.8 10^3/uL (3.5-10.8)
[2020-08-27 07:01] LABS: Potassium 3.6 mmol/L (3.5-5.0)
[2020-08-27 07:02] LABS: Calcium 8.3 mg/dL (8.6-10.3); EGFR African American 158.6 (>60)
[2020-08-27 08:23] LABS: Magnesium 1.8 mg/dL (1.9-2.7)
[2020-08-27] MEDS: Cholecalciferol (VIT D3) 1,000 unit TAB PO SCH (09:24)
[2020-08-27] MEDS: Sulfamethox/Trimethoprim SS TAB 400/80 mg PO SCH (09:25)
[2020-08-27] MEDS: Albuterol/Ipratropium NEB.SOL (2.5/0.5 MG) 3 ML NEB.SOLN INH SCH ×4 (15:34→23:11)
[2020-08-27] MEDS ORDERED: methylPREDNISolone 125 mg 2 ML VIAL IV ONE (16:26)
[2020-08-27] MEDS: DULoxetine DR 30 mg CAP PO SCH (17:51)
[2020-08-27] MEDS: Acetylcysteine INHALATION SOL 200 MG/ML NEB.SOLN 10 ML INH SCH (19:43)
[2020-08-27] MEDS ORDERED: Magnesium Sulfate IV 3 GM in NS 0.9% 100 ml BAG 100 ML IVPB ONE (20:00)
[2020-08-28] MEDS: Albuterol/Ipratropium NEB.SOL (2.5/0.5 MG) 3 ML NEB.SOLN INH SCH ×4 (03:05→15:11)
[2020-08-28 04:49] LABS: ABS Lymphocytes 0.2 10^3/ul (1.0-4.8); ABS Monocytes 0.1 10^3/ul (0-0.8); ABS Neutrophils 3.4 10^3/ul (1.5-7.7); Hematocrit 29 % (35-47); Hemoglobin 9.7 g/dL (12.0-16.0); Lymphocyte % 5.2 %; Mean Corpuscular HGB Conc 34 g/dL (31-36); Mean Corpuscular Hemoglobin 29 pg (27-31); Mean Corpuscular Volume 86 fL (80-97); Mean Platelet Volume 6.9 fL (7.4-10.4); Platelet Count 205 10^3/uL (150-450); Red Blood Count 3.38 10^6 /uL (3.70-4.87); Red Cell Distribution Width 15 % (10-15); White Blood Count 3.7 10^3/uL (3.5-10.8)
[2020-08-28 05:05] LABS: BUN/Creatinine Ratio 16.3 (8-20); Calcium 8.4 mg/dL (8.6-10.3); EGFR African American 147.4 (>60); EGFR Non-African American 121.8 (>60); Magnesium 2.3 mg/dL (1.9-2.7); Potassium 3.7 mmol/L (3.5-5.0)
[2020-08-28] MEDS: ZOSYN 3.375 GM Q8H per EXTENDED INFUSION IV SCH (06:00)
[2020-08-28] MEDS: Cholecalciferol (VIT D3) 1,000 unit TAB PO SCH (07:46)
[2020-08-28] MEDS: Sulfamethox/Trimethoprim SS TAB 400/80 mg PO SCH (07:46)
[2020-08-28] MEDS: Acetylcysteine INHALATION SOL 200 MG/ML NEB.SOLN 10 ML INH SCH (08:30)
[2020-08-28 11:36] VITALS: BP 124/64
== END 2020-08-28 15:30 | disposition home or self-care (01) | DRG 177 ==
LOC: ED 13:48 → MED 18:08
PROVIDERS: ADMIT Internal Medicine; ATTEND Internal Medicine

== ENCOUNTER 2021-07-24 09:36 | Inpatient (IN) ==
[2021-07-24] MEDS ORDERED: Lactated Ringers 1000 ml BAG 1,000 ML IV ONE ×2 (09:50→12:02)
[2021-07-24] MEDS ORDERED: methylPREDNISolone 125 mg 2 ML VIAL IV ONE (09:54)
[2021-07-24] MEDS ORDERED: Piperacillin/Tazobac ADVAN 3.375 GM in NS 0.9% 100 ml BAG 100 ML IV ONE (10:00)
[2021-07-24] MEDS ORDERED: cefTRIAXone 1 gm/50 mL NS BAG 1 GM/50 ML BAG IV ONE (10:02)
[2021-07-24] MEDS ORDERED: Azithromycin 500 mg/250 ml NS 500 MG/250 ML BAG IVPB ONE (10:02)
[2021-07-24] MEDS: Albuterol/Ipratropium NEB.SOL (2.5/0.5 MG) 3 ML NEB.SOLN INH ONE ×2 (10:04→10:09)
[2021-07-24 10:19] LABS: PCO2 Arterial 44 mmHg (35-45); PO2 Arterial 63 mmHg (80-100)
[2021-07-24 10:33] LABS: ABS Eosinophils 0.2 10^3/ul (0-0.6); ABS Lymphocytes 1.8 10^3/ul (1.0-4.8); ABS Monocytes 1.1 10^3/ul (0-0.8); ABS Neutrophils 4.3 10^3/ul (1.5-7.7); Eosinophil % 2.2 %; Hematocrit 26 % (35-47); Hemoglobin 8.8 g/dL (12.0-16.0); Lymphocyte % 24.9 %; Mean Corpuscular HGB Conc 34 g/dL (31-36); Mean Corpuscular Hemoglobin 31 pg (27-31); Mean Corpuscular Volume 94 fL (80-97); Mean Platelet Volume 7.4 fL (7.4-10.4); Platelet Count 132 10^3/uL (150-450); Red Blood Count 2.81 10^6 /uL (3.70-4.87); Red Cell Distribution Width 14 % (10-15); White Blood Count 7.4 10^3/uL (3.5-10.8)
[2021-07-24 10:39] LABS: Activated Partial Thrombo Time 32.8 seconds (26.0-38.0); INR 2.15 (0.86-1.15)
[2021-07-24 10:51] LABS: ALT 8 U/L (7-52); AST 16 U/L (13-39); Albumin 2.3 g/dL (3.2-5.2); Albumin/Globulin Ratio 1.8 (1-3); Alkaline Phosphatase 27 U/L (35-149); Anion Gap 11 mmol/L (2-11); Blood Urea Nitrogen 8 mg/dL (6-24); C Reactive Protein 62.21 mg/L (<8.01); CO2 Carbon Dioxide 21 mmol/L (22-32); Calcium 7.2 mg/dL (8.6-10.3); Chloride 98 mmol/L (101-111); Globulin 1.3 g/dL (2-4); Glucose 64 mg/dL (70-100); Potassium 3.9 mmol/L (3.5-5.0); Sodium 130 mmol/L (135-145); Total Protein 3.6 g/dL (6.4-8.9); eGFR CKD-EPI 98.3 (>60)
[2021-07-24 10:56] LABS: Troponin I 0.05 ng/mL (<0.03)
[2021-07-24] MEDS ORDERED: Albuterol HFA INHALER 8 gm MDI INH ONE (13:05)
[2021-07-24] MEDS ORDERED: Iohexol 300 (CONTRAST) 10 ML SDV IV ONE (13:20)
[2021-07-24 14:20] LABS: Troponin I 0.06 ng/mL (<0.03)
[2021-07-24] MEDS ORDERED: Buffered Lidocaine 1% SYRIN 1 ml INTRADERM ONE (14:40)
[2021-07-24 15:23] LABS: Urine Appearance Clear; Urine Bilirubin Negative (Negative); Urine Blood Negative (Negative); Urine Color Yellow; Urine Glucose Negative (Negative); Urine Ketones Negative (Negative); Urine Nitrite Negative (Negative); Urine Protein Negative (Negative); Urine Urobilinogen Negative (Negative)
[2021-07-24 15:43] LABS: Influenza A Molecular Negative (Negative); Influenza B Molecular Negative (Negative)
[2021-07-24 15:44] LABS: Rapid COVID-19 Molecular Undetected (Undetected)
[2021-07-24] MEDS ORDERED: HYDROMORPHONE 16 MG PO SCH (18:00)
[2021-07-24] MEDS: Albuterol/Ipratropium NEB.SOL (2.5/0.5 MG) 3 ML NEB.SOLN INH SCH (21:31)
[2021-07-24] MEDS: DULoxetine DR 30 mg CAP PO SCH (21:32)
[2021-07-25] MEDS: Sodium Chloride(INHALANT) 7% 4 ML NEB.SOLN INH SCH ×4 (03:38→20:52)
[2021-07-25 06:07] LABS: ABS Lymphocytes 0.5 10^3/ul (1.0-4.8); ABS Monocytes 0.9 10^3/ul (0-0.8); ABS Neutrophils 7.6 10^3/ul (1.5-7.7); Eosinophil % 0.1 %; Hematocrit 32 % (35-47); Hemoglobin 10.9 g/dL (12.0-16.0); Lymphocyte % 5.5 %; Mean Corpuscular HGB Conc 35 g/dL (31-36); Mean Corpuscular Hemoglobin 32 pg (27-31); Mean Corpuscular Volume 91 fL (80-97); Mean Platelet Volume 7.3 fL (7.4-10.4); Platelet Count 146 10^3/uL (150-450); Red Blood Count 3.47 10^6 /uL (3.70-4.87); Red Cell Distribution Width 14 % (10-15); White Blood Count 9.1 10^3/uL (3.5-10.8)
[2021-07-25] MEDS: Albuterol/Ipratropium NEB.SOL (2.5/0.5 MG) 3 ML NEB.SOLN INH SCH ×4 (06:20→20:40)
[2021-07-25 06:25] LABS: Anion Gap 3 mmol/L (2-11); Blood Urea Nitrogen 10 mg/dL (6-24); CO2 Carbon Dioxide 30 mmol/L (22-32); Calcium 8.2 mg/dL (8.6-10.3); Chloride 98 mmol/L (101-111); Glucose 102 mg/dL (70-100); Potassium 4.2 mmol/L (3.5-5.0); Sodium 131 mmol/L (135-145); eGFR CKD-EPI 94.8 (>60)
[2021-07-25 06:52] LABS: Troponin I 0.05 ng/mL (<0.03)
[2021-07-25] MEDS: Cholecalciferol (VIT D3) 1,000 unit TAB PO SCH (08:27)
[2021-07-25] MEDS: cefTRIAXone 1 gm/50 mL NS BAG 1 GM/50 ML BAG IVPB SCH (08:29)
[2021-07-25] MEDS ORDERED: HYDROMORPHONE 16 MG PO SCH (09:00)
[2021-07-25] MEDS ORDERED: Potassium Chlor 10 meq TAB PO SCH (09:00)
[2021-07-25] MEDS ORDERED: Umeclidin/Vilant 62.5 MDI 62.5/25 mcg 14 INH ELLIPTA DEVICE INH SCH (09:00)
[2021-07-25] MEDS: Furosemide 40 mg/4 ml IV VIAL IV SLOW PU ONE (11:08)
[2021-07-25] MEDS: Azithromycin 500 mg/250 ml NS 500 MG/250 ML BAG IVPB SCH (13:47)
[2021-07-25] MEDS: Albuterol HFA INHALER 8 gm MDI INH PRN (20:14)
[2021-07-25] MEDS: DULoxetine DR 30 mg CAP PO SCH (20:17)
[2021-07-26] MEDS: Albuterol HFA INHALER 8 gm MDI INH PRN (01:13)
[2021-07-26] MEDS ORDERED: Furosemide 40 mg/4 ml IV VIAL IV SLOW PU ONE ×2 (01:20→07:23)
[2021-07-26] MEDS ORDERED: Furosemide 40 mg/4 ml IV VIAL ONE (01:20)
[2021-07-26] MEDS: Furosemide 40 mg/4 ml IV VIAL IV SLOW PU ONE (01:24)
[2021-07-26 01:59] LABS: PCO2 Arterial 38 mmHg (35-45)
[2021-07-26] MEDS: Albuterol/Ipratropium NEB.SOL (2.5/0.5 MG) 3 ML NEB.SOLN INH SCH ×4 (02:02→19:20)
[2021-07-26 02:07] LABS: PO2 Arterial 55 mmHg (80-100)
[2021-07-26] MEDS: Nystatin TOP POWDER 15 GM BTL TOPICAL SCH ×4 (05:11→20:26)
[2021-07-26] MEDS: Sodium Chloride(INHALANT) 7% 4 ML NEB.SOLN INH SCH ×2 (07:48→19:21)
[2021-07-26 07:52] LABS: PCO2 Arterial 46 mmHg (35-45); PO2 Arterial 66 mmHg (80-100)
[2021-07-26 09:18] LABS: Calcium 8.3 mg/dL (8.6-10.3); Potassium 3.6 mmol/L (3.5-5.0); eGFR CKD-EPI 89.3 (>60)
[2021-07-26] MEDS: cefTRIAXone 1 gm/50 mL NS BAG 1 GM/50 ML BAG IVPB SCH (10:21)
[2021-07-26] MEDS: Cholecalciferol (VIT D3) 1,000 unit TAB PO SCH (10:21)
[2021-07-26 11:00] LABS: ABS Eosinophils 0.1 10^3/ul (0-0.6); ABS Monocytes 1.1 10^3/ul (0-0.8); ABS Neutrophils 9.5 10^3/ul (1.5-7.7); Eosinophil % 0.7 %; Hematocrit 34 % (35-47); Hemoglobin 11.8 g/dL (12.0-16.0); Lymphocyte % 8.2 %; Mean Corpuscular HGB Conc 34 g/dL (31-36); Mean Corpuscular Hemoglobin 31 pg (27-31); Mean Corpuscular Volume 92 fL (80-97); Mean Platelet Volume 7.2 fL (7.4-10.4); Platelet Count 181 10^3/uL (150-450); Red Blood Count 3.76 10^6 /uL (3.70-4.87); Red Cell Distribution Width 14 % (10-15); White Blood Count 11.7 10^3/uL (3.5-10.8)
[2021-07-26] MEDS: Azithromycin 500 mg/250 ml NS 500 MG/250 ML BAG IVPB SCH (14:46)
[2021-07-26] MEDS: Acetaminophen IV 1 GM/100ML 100 ML IV PRN (15:11)
[2021-07-26] MEDS: Mometasone/Formoter 100/5 MDI INH SCH (19:21)
[2021-07-26] MEDS: DULoxetine DR 30 mg CAP PO SCH (20:25)
[2021-07-26] MEDS: Polyethylene Glycol 3350 17 GM PACKET PO SCH (21:53)
[2021-07-27 04:39] LABS: Hematocrit 36 % (35-47); Hemoglobin 12.3 g/dL (12.0-16.0); Mean Corpuscular HGB Conc 35 g/dL (31-36); Mean Corpuscular Hemoglobin 31 pg (27-31); Mean Corpuscular Volume 90 fL (80-97); Mean Platelet Volume 7.3 fL (7.4-10.4); Platelet Count 201 10^3/uL (150-450); Red Blood Count 3.94 10^6 /uL (3.70-4.87); Red Cell Distribution Width 14 % (10-15); White Blood Count 12.5 10^3/uL (3.5-10.8)
[2021-07-27 05:38] LABS: Calcium 8.4 mg/dL (8.6-10.3); Phosphorus 2.5 mg/dL (2.5-5.0); Potassium 3.8 mmol/L (3.5-5.0); eGFR CKD-EPI 94.3 (>60)
[2021-07-27] MEDS: Sodium Chloride(INHALANT) 7% 4 ML NEB.SOLN INH SCH ×3 (07:25→19:14)
[2021-07-27] MEDS: Albuterol/Ipratropium NEB.SOL (2.5/0.5 MG) 3 ML NEB.SOLN INH SCH ×3 (07:25→19:00)
[2021-07-27] MEDS: Mometasone/Formoter 100/5 MDI INH SCH ×2 (07:45→19:00)
[2021-07-27] MEDS ORDERED: Potassium Chlor 20 meq TAB.ER PO ONE (07:55)
[2021-07-27] MEDS: Nystatin TOP POWDER 15 GM BTL TOPICAL SCH ×3 (08:38→21:17)
[2021-07-27] MEDS: methylPREDNISolone SOD 40 mg/ml 1 ml VIAL IV SCH ×2 (08:38→21:12)
[2021-07-27] MEDS: Cholecalciferol (VIT D3) 1,000 unit TAB PO SCH (08:40)
[2021-07-27] MEDS: Polyethylene Glycol 3350 17 GM PACKET PO SCH (08:42)
[2021-07-27] MEDS: cefTRIAXone 1 gm/50 mL NS BAG 1 GM/50 ML BAG IVPB SCH (08:50)
[2021-07-27] MEDS: Azithromycin 500 mg/250 ml NS 500 MG/250 ML BAG IVPB SCH (14:07)
[2021-07-27] MEDS ORDERED: Albuterol/Ipratropium NEB.SOL (2.5/0.5 MG) 3 ML NEB.SOLN ONE (19:01)
[2021-07-27] MEDS: DULoxetine DR 30 mg CAP PO SCH (21:19)
[2021-07-28 05:53] LABS: ABS Lymphocytes 0.3 10^3/ul (1.0-4.8); ABS Monocytes 0.5 10^3/ul (0-0.8); ABS Neutrophils 12.1 10^3/ul (1.5-7.7); Hematocrit 37 % (35-47); Hemoglobin 12.4 g/dL (12.0-16.0); Lymphocyte % 2.7 %; Mean Corpuscular HGB Conc 34 g/dL (31-36); Mean Corpuscular Hemoglobin 31 pg (27-31); Mean Corpuscular Volume 91 fL (80-97); Mean Platelet Volume 7.3 fL (7.4-10.4); Platelet Count 200 10^3/uL (150-450); Red Blood Count 4.06 10^6 /uL (3.70-4.87); Red Cell Distribution Width 14 % (10-15)
[2021-07-28 06:11] LABS: Calcium 8.5 mg/dL (8.6-10.3); Magnesium 2.1 mg/dL (1.9-2.7); Potassium 4.4 mmol/L (3.5-5.0)
[2021-07-28 06:17] LABS: Phosphorus 2.3 mg/dL (2.5-5.0); eGFR CKD-EPI 91.4 (>60)
[2021-07-28] MEDS: Albuterol/Ipratropium NEB.SOL (2.5/0.5 MG) 3 ML NEB.SOLN INH SCH ×3 (07:31→20:39)
[2021-07-28] MEDS: Sodium Chloride(INHALANT) 7% 4 ML NEB.SOLN INH SCH ×3 (07:32→19:07)
[2021-07-28] MEDS: Mometasone/Formoter 100/5 MDI INH SCH ×2 (07:33→20:38)
[2021-07-28] MEDS: Cholecalciferol (VIT D3) 1,000 unit TAB PO SCH (08:16)
[2021-07-28] MEDS: methylPREDNISolone SOD 40 mg/ml 1 ml VIAL IV SCH ×3 (08:16→22:31)
[2021-07-28] MEDS: Nystatin TOP POWDER 15 GM BTL TOPICAL SCH ×3 (08:17→19:23)
[2021-07-28] MEDS: Polyethylene Glycol 3350 17 GM PACKET PO SCH (08:17)
[2021-07-28] MEDS ORDERED: Furosemide 40 mg/4 ml IV VIAL IV SLOW PU ONE (08:19)
[2021-07-28] MEDS: Acetaminophen IV 1 GM/100ML 100 ML IV PRN (08:20)
[2021-07-28] MEDS: cefTRIAXone 1 gm/50 mL NS BAG 1 GM/50 ML BAG IVPB SCH (10:19)
[2021-07-28] MEDS: Azithromycin 500 mg/250 ml NS 500 MG/250 ML BAG IVPB SCH (13:40)
[2021-07-28] MEDS: Magnesium CITRATE LIQ 300 ML BTL PO SCH (16:09)
[2021-07-28] MEDS: Morphine 2 MG/ML SYRINGE IV PRN ×2 (18:14→21:29)
[2021-07-28] MEDS ORDERED: Albuterol/Ipratropium NEB.SOL (2.5/0.5 MG) 3 ML NEB.SOLN ONE (18:56)
[2021-07-28] MEDS: DULoxetine DR 30 mg CAP PO SCH (19:21)
[2021-07-28] MEDS: Albuterol HFA INHALER 8 gm MDI INH PRN (20:47)
[2021-07-28 21:36] LABS: Troponin I 0.05 ng/mL (<0.03)
[2021-07-29] MEDS ORDERED: Albuterol/Ipratropium NEB.SOL (2.5/0.5 MG) 3 ML NEB.SOLN ONE (00:30)
[2021-07-29] MEDS: Albuterol/Ipratropium NEB.SOL (2.5/0.5 MG) 3 ML NEB.SOLN INH SCH ×7 (00:34→23:37)
[2021-07-29] MEDS: Morphine 2 MG/ML SYRINGE IV PRN ×2 (01:19→05:29)
[2021-07-29] MEDS ORDERED: Furosemide 40 mg/4 ml IV VIAL IV SLOW PU ONE (02:29)
[2021-07-29 05:50] LABS: ABS Basophils 0.1 10^3/ul (0-0.2); ABS Lymphocytes 0.2 10^3/ul (1.0-4.8); ABS Monocytes 0.8 10^3/ul (0-0.8); ABS Neutrophils 11.7 10^3/ul (1.5-7.7); Hematocrit 33 % (35-47); Lymphocyte % 1.3 %; Mean Corpuscular HGB Conc 34 g/dL (31-36); Mean Corpuscular Hemoglobin 31 pg (27-31); Mean Corpuscular Volume 91 fL (80-97); Mean Platelet Volume 7.4 fL (7.4-10.4); Platelet Count 222 10^3/uL (150-450); Red Blood Count 3.61 10^6 /uL (3.70-4.87); Red Cell Distribution Width 14 % (10-15); White Blood Count 12.7 10^3/uL (3.5-10.8)
[2021-07-29 06:13] LABS: Anion Gap 8 mmol/L (2-11); Blood Urea Nitrogen 17 mg/dL (6-24); CO2 Carbon Dioxide 31 mmol/L (22-32); Calcium 7.7 mg/dL (8.6-10.3); Chloride 95 mmol/L (101-111); Glucose 118 mg/dL (70-100); Magnesium 2.6 mg/dL (1.9-2.7); Sodium 134 mmol/L (135-145); eGFR CKD-EPI 93.4 (>60)
[2021-07-29 06:39] LABS: Troponin I 0.16 ng/mL (<0.03)
[2021-07-29] MEDS: methylPREDNISolone SOD 40 mg/ml 1 ml VIAL IV SCH ×2 (06:47→16:05)
[2021-07-29] MEDS: Mometasone/Formoter 100/5 MDI INH SCH ×2 (07:29→20:00)
[2021-07-29] MEDS: Sodium Chloride(INHALANT) 7% 4 ML NEB.SOLN INH SCH ×3 (07:30→21:34)
[2021-07-29 08:00] LABS: PCO2 Arterial 50 mmHg (35-45)
[2021-07-29 08:04] LABS: PO2 Arterial 56 mmHg (80-100)
[2021-07-29] MEDS: Cholecalciferol (VIT D3) 1,000 unit TAB PO SCH (08:20)
[2021-07-29] MEDS: Polyethylene Glycol 3350 17 GM PACKET PO SCH (08:22)
[2021-07-29] MEDS: cefTRIAXone 1 gm/50 mL NS BAG 1 GM/50 ML BAG IVPB SCH (08:26)
[2021-07-29] MEDS: Nystatin TOP POWDER 15 GM BTL TOPICAL SCH ×3 (08:27→21:15)
[2021-07-29] MEDS: Magnesium CITRATE LIQ 300 ML BTL PO SCH (10:41)
[2021-07-29] MEDS ORDERED: Succinylcholine 200 mg VIAL 20 mg/ml 10 ml VIAL (200 mg) ONE (11:00)
[2021-07-29] MEDS ORDERED: Propofol 10 mg/ml 100 ML BTL 100 ML ONE (11:00)
[2021-07-29] MEDS ORDERED: Etomidate 40 mg/20 ml (2 MG/ML) 20 ml VIAL (40 mg) ONE (11:08)
[2021-07-29] MEDS ORDERED: Propofol 10 MG/ML 20 ML BTL ONE (11:29)
[2021-07-29] MEDS: Propofol 10 mg/ml 100 ML BTL 100 ML IV SCH ×3 (11:40→21:23)
[2021-07-29 12:52] LABS: Body Fluid Source OTH
[2021-07-29 13:01] LABS: Urine Appearance Clear; Urine Bilirubin Negative (Negative); Urine Blood Negative (Negative); Urine Color Yellow; Urine Glucose Negative (Negative); Urine Ketones Negative (Negative); Urine Nitrite Negative (Negative); Urine Protein Negative (Negative); Urine Specific Gravity 1.011 (1.002-1.030); Urine Urobilinogen Negative (Negative)
[2021-07-29 13:17] LABS: Body Fluid WBC 11575 /mcL
[2021-07-29 13:34] LABS: Body Fluid Appearance Bloody; Body Fluid Color Red; Body Fluid Mono 8 %; Body Fluid Total Cells Counted 200
[2021-07-29 14:35] LABS: PCO2 Arterial 49 mmHg (35-45); PO2 Arterial 66 mmHg (80-100)
[2021-07-29] MEDS ORDERED: fentaNYL 100 mcg/2 ml 50 MCG/ML VIAL ONE (15:40)
[2021-07-29] MEDS ORDERED: fentaNYL 100 mcg/2 ml 50 MCG/ML VIAL IV SLOW PU ONE (15:49)
[2021-07-29] MEDS: Chlorhexidine MOUTHWASH 0.12% 15 ML UDC TOPICAL SCH (21:14)
[2021-07-29] MEDS: DULoxetine DR 30 mg CAP PO SCH (21:14)
[2021-07-29 21:23] LABS: Troponin I 0.14 ng/mL (<0.03)
[2021-07-30] MEDS: methylPREDNISolone SOD 40 mg/ml 1 ml VIAL IV SCH ×3 (00:14→17:12)
[2021-07-30] MEDS: Chlorhexidine MOUTHWASH 0.12% 15 ML UDC TOPICAL SCH ×6 (00:14→17:13)
[2021-07-30] MEDS: Propofol 10 mg/ml 100 ML BTL 100 ML IV SCH ×5 (01:37→13:19)
[2021-07-30] MEDS: Albuterol/Ipratropium NEB.SOL (2.5/0.5 MG) 3 ML NEB.SOLN INH SCH ×6 (05:38→23:46)
[2021-07-30 05:40] LABS: ABS Basophils 0.1 10^3/ul (0-0.2); ABS Lymphocytes 0.1 10^3/ul (1.0-4.8); ABS Monocytes 0.8 10^3/ul (0-0.8); ABS Neutrophils 10.1 10^3/ul (1.5-7.7); Hematocrit 31 % (35-47); Hemoglobin 10.9 g/dL (12.0-16.0); Lymphocyte % 0.6 %; Mean Corpuscular HGB Conc 35 g/dL (31-36); Mean Corpuscular Hemoglobin 31 pg (27-31); Mean Corpuscular Volume 90 fL (80-97); Mean Platelet Volume 7.5 fL (7.4-10.4); Platelet Count 219 10^3/uL (150-450); Red Blood Count 3.47 10^6 /uL (3.70-4.87); Red Cell Distribution Width 14 % (10-15); White Blood Count 11.1 10^3/uL (3.5-10.8)
[2021-07-30 05:55] LABS: Albumin 2.9 g/dL (3.2-5.2); Albumin/Globulin Ratio 1.1 (1-3); Calcium 7.8 mg/dL (8.6-10.3); Globulin 2.6 g/dL (2-4); Total Bilirubin 0.4 mg/dL (0.2-1.0); Total Protein 5.5 g/dL (6.4-8.9)
[2021-07-30] MEDS ORDERED: Acetaminophen IV 1 GM/100ML 100 ML IV PRN (06:18)
[2021-07-30] MEDS: Mometasone/Formoter 100/5 MDI INH SCH ×2 (07:12→19:14)
[2021-07-30] MEDS: Sodium Chloride(INHALANT) 7% 4 ML NEB.SOLN INH SCH ×3 (07:13→19:13)
[2021-07-30] MEDS: Nystatin TOP POWDER 15 GM BTL TOPICAL SCH ×3 (07:51→21:07)
[2021-07-30] MEDS: Cholecalciferol (VIT D3) 1,000 unit TAB PO SCH (07:51)
[2021-07-30] MEDS: Polyethylene Glycol 3350 17 GM PACKET PO SCH (07:51)
[2021-07-30] MEDS: fentaNYL 100 mcg/2 ml 50 MCG/ML VIAL IV SLOW PU PRN ×3 (09:22→19:47)
[2021-07-30] MEDS: Magnesium CITRATE LIQ 300 ML BTL PO SCH (10:32)
[2021-07-30] MEDS ORDERED: Rocuronium 50 mg VIAL 10 mg/ml 5 ml VIAL (50 mg) ONE (10:47)
[2021-07-30] MEDS ORDERED: Rocuronium 50 mg VIAL 10 mg/ml 5 ml VIAL (50 mg) IV ONE (11:04)
[2021-07-30] MEDS: cefTRIAXone 1 gm/50 mL NS BAG 1 GM/50 ML BAG IVPB SCH (13:43)
[2021-07-30 13:58] LABS: PCO2 Arterial 48 mmHg (35-45)
[2021-07-30 14:07] LABS: PO2 Arterial 53 mmHg (80-100)
[2021-07-30] MEDS ORDERED: Furosemide 40 mg/4 ml IV VIAL IV ONE (14:09)
[2021-07-30] MEDS ORDERED: Furosemide 40 mg/4 ml IV VIAL ONE (14:10)
[2021-07-30] MEDS ORDERED: ZOSYN 3.375 GM x ONE DOSE over 30 miuntes IV (18:00)
[2021-07-30] MEDS: DULoxetine DR 30 mg CAP PO SCH (21:07)
[2021-07-30] MEDS: Piperacillin/Tazobac ADVAN 3.375 GM in NS 0.9% 100 ml BAG 100 ML IV SCH (21:10)
[2021-07-31] MEDS: Albuterol/Ipratropium NEB.SOL (2.5/0.5 MG) 3 ML NEB.SOLN INH SCH ×6 (03:42→22:49)
[2021-07-31 05:04] LABS: ABS Lymphocytes 0.1 10^3/ul (1.0-4.8); ABS Monocytes 0.8 10^3/ul (0-0.8); ABS Neutrophils 8.1 10^3/ul (1.5-7.7); Hematocrit 33 % (35-47); Hemoglobin 11.2 g/dL (12.0-16.0); Lymphocyte % 1.4 %; Mean Corpuscular HGB Conc 34 g/dL (31-36); Mean Corpuscular Hemoglobin 31 pg (27-31); Mean Corpuscular Volume 90 fL (80-97); Mean Platelet Volume 7.4 fL (7.4-10.4); Platelet Count 211 10^3/uL (150-450); Red Blood Count 3.61 10^6 /uL (3.70-4.87); Red Cell Distribution Width 14 % (10-15); White Blood Count 9.1 10^3/uL (3.5-10.8)
[2021-07-31] MEDS: Piperacillin/Tazobac ADVAN 3.375 GM in NS 0.9% 100 ml BAG 100 ML IV SCH ×3 (05:04→21:29)
[2021-07-31 05:26] LABS: Calcium 7.8 mg/dL (8.6-10.3); Phosphorus 2.8 mg/dL (2.5-5.0); Potassium 3.7 mmol/L (3.5-5.0)
[2021-07-31] MEDS: methylPREDNISolone SOD 40 mg/ml 1 ml VIAL IV SCH ×2 (05:33→16:02)
[2021-07-31] MEDS: Sodium Chloride(INHALANT) 7% 4 ML NEB.SOLN INH SCH ×3 (06:55→19:31)
[2021-07-31] MEDS: Mometasone/Formoter 100/5 MDI INH SCH ×2 (07:36→19:31)
[2021-07-31] MEDS ORDERED: Docusate LIQ 100 MG/10 ML UDC G TUBE PRN (08:00)
[2021-07-31] MEDS ORDERED: Furosemide 20 mg/2 ml IV VIAL IV SLOW PU ONE (08:14)
[2021-07-31] MEDS ORDERED: Potassium Chloride LIQUID 20 MEQ/15 ML LIQUID PO ONE (08:15)
[2021-07-31] MEDS: Magnesium CITRATE LIQ 300 ML BTL G TUBE SCH (08:22)
[2021-07-31] MEDS: Lansoprazole SUSP ORALSYR 3 MG/ML G TUBE SCH (08:22)
[2021-07-31] MEDS: Polyethylene Glycol 3350 17 GM PACKET G TUBE SCH (08:22)
[2021-07-31] MEDS: Nystatin TOP POWDER 15 GM BTL TOPICAL SCH ×3 (08:23→20:48)
[2021-07-31] MEDS: Cholecalciferol (VIT D3) 1,000 unit TAB G TUBE SCH (08:23)
[2021-07-31] MEDS: HYDROmorphone 1 MG/1 ML SYRINGE IV SLOW PU PRN ×4 (09:31→21:28)
[2021-07-31] MEDS: fentaNYL PATCH 25 MCG/HR 1 PATCH TRANSDERM SCH (10:32)
[2021-07-31] MEDS: fentaNYL 100 mcg/2 ml 50 MCG/ML VIAL IV SLOW PU PRN (16:02)
[2021-07-31] MEDS ORDERED: Senna TAB 8.6 mg TAB PO PRN (17:30)
[2021-07-31] MEDS ORDERED: CMCS: Methylnaltrexone SQ (NF) 12 MG/0.6 ML VIAL SUBCUT ONE (17:32)
[2021-07-31] MEDS: fentaNYL Patch Check Q Shift NOTE FOLLOW UP SCH (19:00)
[2021-07-31] MEDS: DULoxetine DR 30 mg CAP SCH (20:46)
[2021-08-01] MEDS: Albuterol/Ipratropium NEB.SOL (2.5/0.5 MG) 3 ML NEB.SOLN INH SCH ×4 (03:16→19:14)
[2021-08-01 05:56] LABS: ABS Lymphocytes 0.3 10^3/ul (1.0-4.8); ABS Neutrophils 11.2 10^3/ul (1.5-7.7); Hematocrit 34 % (35-47); Hemoglobin 11.6 g/dL (12.0-16.0); Lymphocyte % 2.7 %; Mean Corpuscular HGB Conc 34 g/dL (31-36); Mean Corpuscular Hemoglobin 31 pg (27-31); Mean Corpuscular Volume 90 fL (80-97); Mean Platelet Volume 7.4 fL (7.4-10.4); Nucleated Red Blood Cells % 0.1; Platelet Count 247 10^3/uL (150-450); Red Blood Count 3.76 10^6 /uL (3.70-4.87); Red Cell Distribution Width 14 % (10-15); White Blood Count 12.6 10^3/uL (3.5-10.8)
[2021-08-01 06:14] LABS: Calcium 7.8 mg/dL (8.6-10.3); Magnesium 2.5 mg/dL (1.9-2.7); Phosphorus 1.9 mg/dL (2.5-5.0); Potassium 4.4 mmol/L (3.5-5.0); eGFR CKD-EPI 94.3 (>60)
[2021-08-01] MEDS: Mometasone/Formoter 100/5 MDI INH SCH ×2 (07:01→19:14)
[2021-08-01] MEDS: Sodium Chloride(INHALANT) 7% 4 ML NEB.SOLN INH SCH (07:05)
[2021-08-01] MEDS: methylPREDNISolone SOD 40 mg/ml 1 ml VIAL IV SCH (07:07)
[2021-08-01] MEDS: Piperacillin/Tazobac ADVAN 3.375 GM in NS 0.9% 100 ml BAG 100 ML IV SCH ×3 (07:07→23:17)
[2021-08-01] MEDS: fentaNYL Patch Check Q Shift NOTE FOLLOW UP SCH ×2 (07:24→19:08)
[2021-08-01] MEDS ORDERED: Furosemide 40 mg/4 ml IV VIAL IV ONE (09:13)
[2021-08-01] MEDS ORDERED: Docusate LIQ 100 MG/10 ML UDC PO PRN (10:09)
[2021-08-01] MEDS ORDERED: Sodium Chloride(INHALANT) 7% 4 ML NEB.SOLN INH PRN (11:03)
[2021-08-01] MEDS: Potassium & Sodium Phos 250 mg = 1 PACKET PO SCH ×4 (14:03→20:24)
[2021-08-01] MEDS: fentaNYL 100 mcg/2 ml 50 MCG/ML VIAL IV SLOW PU PRN (14:03)
[2021-08-01] MEDS: Nystatin TOP POWDER 15 GM BTL TOPICAL SCH ×3 (14:04→20:18)
[2021-08-01] MEDS: Magnesium CITRATE LIQ 300 ML BTL G TUBE SCH (19:29)
[2021-08-01] MEDS: Lansoprazole SUSP ORALSYR 3 MG/ML G TUBE SCH (19:29)
[2021-08-01] MEDS: Cholecalciferol (VIT D3) 1,000 unit TAB G TUBE SCH (19:29)
[2021-08-01] MEDS: Polyethylene Glycol 3350 17 GM PACKET G TUBE SCH (19:30)
[2021-08-01] MEDS: DULoxetine DR 30 mg CAP SCH (20:17)
[2021-08-02] MEDS: Albuterol/Ipratropium NEB.SOL (2.5/0.5 MG) 3 ML NEB.SOLN INH SCH ×3 (01:23→13:44)
[2021-08-02] MEDS: Piperacillin/Tazobac ADVAN 3.375 GM in NS 0.9% 100 ml BAG 100 ML IV SCH ×3 (05:23→22:45)
[2021-08-02] MEDS: fentaNYL Patch Check Q Shift NOTE FOLLOW UP SCH ×2 (06:46→20:50)
[2021-08-02] MEDS: Mometasone/Formoter 100/5 MDI INH SCH ×2 (06:57→20:00)
[2021-08-02] MEDS: fentaNYL 100 mcg/2 ml 50 MCG/ML VIAL IV SLOW PU PRN ×4 (06:59→23:31)
[2021-08-02] MEDS: Nystatin TOP POWDER 15 GM BTL TOPICAL SCH ×3 (08:38→20:53)
[2021-08-02] MEDS: Cholecalciferol (VIT D3) 1,000 unit TAB PO SCH (08:50)
[2021-08-02] MEDS: Potassium & Sodium Phos 250 mg = 1 PACKET PO SCH (08:50)
[2021-08-02 09:23] LABS: Hematocrit 37 % (35-47); Hemoglobin 12.5 g/dL (12.0-16.0); Mean Corpuscular HGB Conc 34 g/dL (31-36); Mean Corpuscular Hemoglobin 31 pg (27-31); Mean Corpuscular Volume 91 fL (80-97); Mean Platelet Volume 7.4 fL (7.4-10.4); Platelet Count 265 10^3/uL (150-450); Red Blood Count 4.04 10^6 /uL (3.70-4.87); Red Cell Distribution Width 14 % (10-15); White Blood Count 10.1 10^3/uL (3.5-10.8)
[2021-08-02] MEDS: Lansoprazole SUSP ORALSYR 3 MG/ML PO SCH (09:28)
[2021-08-02] MEDS: Polyethylene Glycol 3350 17 GM PACKET PO SCH (09:28)
[2021-08-02] MEDS: Magnesium CITRATE LIQ 300 ML BTL PO SCH (09:28)
[2021-08-02 09:39] LABS: Potassium 4.4 mmol/L (3.5-5.0)
[2021-08-02 09:45] LABS: Phosphorus 3.4 mg/dL (2.5-5.0); eGFR CKD-EPI 96.7 (>60)
[2021-08-02] MEDS ORDERED: Furosemide 40 mg/4 ml IV VIAL IV SLOW PU ONE (10:15)
[2021-08-02 10:49] LABS: ABS Eosinophils 0.3 10^3/ul (0-0.6); ABS Monocytes 0.9 10^3/ul (0-0.8); Eosinophil % 2.5 %; Lymphocyte % 9.7 %
[2021-08-02] MEDS ORDERED: Albuterol/Ipratropium NEB.SOL (2.5/0.5 MG) 3 ML NEB.SOLN INH PRN (13:45)
[2021-08-02] MEDS: DULoxetine DR 30 mg CAP SCH (20:51)
[2021-08-03] MEDS: fentaNYL 100 mcg/2 ml 50 MCG/ML VIAL IV SLOW PU PRN ×4 (03:36→22:28)
[2021-08-03] MEDS: fentaNYL Patch Check Q Shift NOTE FOLLOW UP SCH ×3 (03:38→19:18)
[2021-08-03 05:44] LABS: Hematocrit 37 % (35-47); Hemoglobin 12.5 g/dL (12.0-16.0); Mean Corpuscular HGB Conc 34 g/dL (31-36); Mean Corpuscular Hemoglobin 31 pg (27-31); Mean Corpuscular Volume 90 fL (80-97); Mean Platelet Volume 7.4 fL (7.4-10.4); Platelet Count 245 10^3/uL (150-450); Red Blood Count 4.08 10^6 /uL (3.70-4.87); Red Cell Distribution Width 14 % (10-15); White Blood Count 12.3 10^3/uL (3.5-10.8)
[2021-08-03 05:46] LABS: ABS Eosinophils 0.2 10^3/ul (0-0.6); ABS Lymphocytes 0.9 10^3/ul (1.0-4.8); ABS Neutrophils 10.2 10^3/ul (1.5-7.7); Eosinophil % 1.7 %; Lymphocyte % 7.2 %; Nucleated Red Blood Cells % 0.1
[2021-08-03 05:57] LABS: Calcium 8.5 mg/dL (8.6-10.3); Magnesium 1.7 mg/dL (1.9-2.7); Phosphorus 3.9 mg/dL (2.5-5.0); Potassium 4.1 mmol/L (3.5-5.0); eGFR CKD-EPI 96.7 (>60)
[2021-08-03] MEDS: Piperacillin/Tazobac ADVAN 3.375 GM in NS 0.9% 100 ml BAG 100 ML IV SCH ×3 (06:08→22:27)
[2021-08-03] MEDS: Cholecalciferol (VIT D3) 1,000 unit TAB PO SCH (08:09)
[2021-08-03] MEDS: Lansoprazole SUSP ORALSYR 3 MG/ML PO SCH (08:22)
[2021-08-03] MEDS: Magnesium CITRATE LIQ 300 ML BTL PO SCH (08:23)
[2021-08-03] MEDS: Polyethylene Glycol 3350 17 GM PACKET PO SCH (08:23)
[2021-08-03] MEDS: Nystatin TOP POWDER 15 GM BTL TOPICAL SCH ×3 (08:23→21:38)
[2021-08-03] MEDS: Mometasone/Formoter 100/5 MDI INH SCH ×2 (09:11→20:30)
[2021-08-03] MEDS: fentaNYL PATCH 25 MCG/HR 1 PATCH TRANSDERM SCH (10:06)
[2021-08-03 10:38] LABS: Rapid COVID-19 Molecular Undetected (Undetected)
[2021-08-03] MEDS: Labetalol IV 5 MG/ML 20 ml VIAL IV PUSH PRN (11:48)
[2021-08-03] MEDS: Albuterol HFA INHALER 8 gm MDI INH PRN (14:33)
[2021-08-03] MEDS: DULoxetine DR 30 mg CAP SCH (21:35)
[2021-08-04] MEDS: fentaNYL 100 mcg/2 ml 50 MCG/ML VIAL IV SLOW PU PRN ×2 (02:49→08:40)
[2021-08-04] MEDS: Labetalol IV 5 MG/ML 20 ml VIAL IV PUSH PRN ×2 (03:36→08:37)
[2021-08-04] MEDS: Piperacillin/Tazobac ADVAN 3.375 GM in NS 0.9% 100 ml BAG 100 ML IV SCH (06:12)
[2021-08-04] MEDS: fentaNYL Patch Check Q Shift NOTE FOLLOW UP SCH (07:32)
[2021-08-04] MEDS: Mometasone/Formoter 100/5 MDI INH SCH (07:46)
[2021-08-04] MEDS: Cholecalciferol (VIT D3) 1,000 unit TAB PO SCH (08:16)
[2021-08-04] MEDS: Nystatin TOP POWDER 15 GM BTL TOPICAL SCH (08:20)
[2021-08-04] MEDS: Polyethylene Glycol 3350 17 GM PACKET PO SCH (08:20)
[2021-08-04 08:37] LABS: Hematocrit 39 % (35-47); Hemoglobin 13.2 g/dL (12.0-16.0); Mean Corpuscular HGB Conc 34 g/dL (31-36); Mean Corpuscular Hemoglobin 31 pg (27-31); Mean Corpuscular Volume 91 fL (80-97); Mean Platelet Volume 7.4 fL (7.4-10.4); Platelet Count 289 10^3/uL (150-450); Red Blood Count 4.32 10^6 /uL (3.70-4.87); Red Cell Distribution Width 14 % (10-15); White Blood Count 14.7 10^3/uL (3.5-10.8)
[2021-08-04 08:39] LABS: ABS Eosinophils 0.2 10^3/ul (0-0.6); ABS Lymphocytes 1.6 10^3/ul (1.0-4.8); ABS Monocytes 1.1 10^3/ul (0-0.8); ABS Neutrophils 11.9 10^3/ul (1.5-7.7); Eosinophil % 1.2 %; Lymphocyte % 10.5 %
[2021-08-04] MEDS: Lansoprazole SUSP ORALSYR 3 MG/ML PO SCH (08:42)
[2021-08-04 08:55] LABS: Calcium 8.9 mg/dL (8.6-10.3); Magnesium 1.6 mg/dL (1.9-2.7); Potassium 3.8 mmol/L (3.5-5.0); eGFR CKD-EPI 91.8 (>60)
[2021-08-04] MEDS ORDERED: Magnesium Sulfate 2 gm BAG 2 GM/50 ML BAG IVPB ONE (09:04)
[2021-08-04] MEDS: Magnesium CITRATE LIQ 300 ML BTL PO SCH (11:24)
[2021-08-04 11:45] VITALS: BP 148/79
== END 2021-08-04 12:25 | DRG 166 ==
LOC: ED 09:36 → SUATTDRO 15:47 → EDHOLD 15:47 → MEDTELE 07-25 01:21 → ICU 07-26 09:36 → MEDTELE 08-03 07:55
PROVIDERS: ADMIT Hospitalist; ATTEND Internal Medicine

== ENCOUNTER 2021-09-17 13:27 | Inpatient (IN) ==
[2021-09-17] MEDS ORDERED: Ciprofloxacin 400mg IVPREMIX 400 MG/200 ML BAG IVPB ONE (14:34)
[2021-09-17] MEDS ORDERED: Cefepime 2 GM in Dextrose 2 GM/50 ML BAG IV ONE (14:34)
[2021-09-17 14:35] LABS: Rapid COVID-19 Molecular Undetected (Undetected)
[2021-09-17 14:39] LABS: Venous Bicarbonate HCO3 26.9 mmol/L (24-28)
[2021-09-17 14:44] LABS: ABS Eosinophils 0.3 10^3/ul (0-0.6); ABS Lymphocytes 1.7 10^3/ul (1.0-4.8); ABS Monocytes 0.8 10^3/ul (0-0.8); ABS Neutrophils 6.6 10^3/ul (1.5-7.7); Eosinophil % 3.1 %; Hematocrit 37 % (35-47); Hemoglobin 12.6 g/dL (12.0-16.0); Lymphocyte % 18.3 %; Mean Corpuscular HGB Conc 34 g/dL (31-36); Mean Corpuscular Hemoglobin 31 pg (27-31); Mean Corpuscular Volume 89 fL (80-97); Mean Platelet Volume 7.4 fL (7.4-10.4); Platelet Count 136 10^3/uL (150-450); Red Blood Count 4.12 10^6 /uL (3.70-4.87); Red Cell Distribution Width 15 % (10-15); White Blood Count 9.4 10^3/uL (3.5-10.8)
[2021-09-17 14:52] LABS: INR 1.69 (0.86-1.15)
[2021-09-17 15:13] LABS: Albumin 3.5 g/dL (3.2-5.2); CO2 Carbon Dioxide 24 mmol/L (22-32); Calcium 8.4 mg/dL (8.6-10.3); Chloride 98 mmol/L (101-111); Sodium 131 mmol/L (135-145)
[2021-09-17 15:19] LABS: ALT 14 U/L (7-52); Albumin/Globulin Ratio 1.3 (1-3); Alkaline Phosphatase 38 U/L (35-149); Blood Urea Nitrogen 12 mg/dL (6-24); C Reactive Protein 152.18 mg/L (<8.01); Globulin 2.6 g/dL (2-4); Glucose 54 mg/dL (70-100); Total Protein 6.1 g/dL (6.4-8.9); eGFR CKD-EPI 93.7 (>60)
[2021-09-17 15:25] LABS: Anion Gap 9 mmol/L (2-11)
[2021-09-17 15:47] LABS: Ferritin 146.3 ng/mL (11-307)
[2021-09-17 16:27] LABS: AST Redraw 23 U/L (13-39); Potassium Redraw 3.3 mmol/L (3.5-5.0)
[2021-09-17] MEDS ORDERED: Albuterol 2.5mg/3 ml (0.083%) NEB.SOLN INH PRN (17:14)
[2021-09-17] MEDS ORDERED: Sodium Chloride(INHALANT)0.9% 5 ML NEB.SOLN INH PRN (17:14)
[2021-09-17] MEDS ORDERED: Azithromycin 500 mg/250 ml NS 500 MG/250 ML BAG IVPB SCH (18:00)
[2021-09-17] MEDS ORDERED: Albuterol HFA INHALER 8 gm MDI INH PRN (19:07)
[2021-09-17] MEDS: DULoxetine DR 30 mg CAP PO SCH (20:09)
[2021-09-17] MEDS: HYDROmorphone 8mg TAB (NF) PO SCH (20:10)
[2021-09-17] MEDS ORDERED: HYDROMORPHONE PO SCH (21:00)
[2021-09-17 21:04] LABS: Troponin I 0.09 ng/mL (<0.03)
[2021-09-17 21:17] LABS: Magnesium 1.6 mg/dL (1.9-2.7)
[2021-09-17] MEDS: KCL 20 MEQ/100 ML IVPREMIX 20 MEQ/100 ML BAG IV SCH (21:32)
[2021-09-17 22:05] LABS: Influenza A Molecular Negative (Negative); Influenza B Molecular Negative (Negative)
[2021-09-18] MEDS: KCL 20 MEQ/100 ML IVPREMIX 20 MEQ/100 ML BAG IV SCH (00:13)
[2021-09-18 05:10] LABS: Calcium 8.5 mg/dL (8.6-10.3); Potassium 4.5 mmol/L (3.5-5.0); eGFR CKD-EPI 92.9 (>60)
[2021-09-18] MEDS: Cholecalciferol (VIT D3) 1,000 unit TAB PO SCH (08:39)
[2021-09-18] MEDS: HYDROmorphone 8mg TAB (NF) PO SCH ×4 (08:40→21:53)
[2021-09-18] MEDS ORDERED: cefTRIAXone 1 gm/50 mL NS BAG 1 GM/50 ML BAG IVPB SCH (09:00)
[2021-09-18] MEDS ORDERED: Linezolid 600 MG IVPREMIX(*) 600 MG/300 ML BAG IVPB SCH (12:00)
[2021-09-18] MEDS ORDERED: Zosyn per Pharmacy NOTE FOLLOW UP SCH (12:00)
[2021-09-18] MEDS ORDERED: Piperacillin/Tazobac ADVAN 3.375 GM in NS 0.9% 100 ml BAG 100 ML IV ONE (12:30)
[2021-09-18] MEDS: Cefepime 1 GM in Dextrose 1 GM/50 ML BAG IV SCH (17:02)
[2021-09-18] MEDS: ZOSYN 3.375 GM Q8H per EXTENDED INFUSION IV SCH (18:08)
[2021-09-18] MEDS: DULoxetine DR 30 mg CAP PO SCH (19:45)
[2021-09-19] MEDS: Cefepime 1 GM in Dextrose 1 GM/50 ML BAG IV SCH ×2 (00:29→10:02)
[2021-09-19] MEDS: ZOSYN 3.375 GM Q8H per EXTENDED INFUSION IV SCH ×2 (01:15→10:35)
[2021-09-19] MEDS: HYDROmorphone 8mg TAB (NF) PO SCH ×2 (06:39→14:41)
[2021-09-19 08:36] LABS: ABS Eosinophils 0.1 10^3/ul (0-0.6); ABS Lymphocytes 0.7 10^3/ul (1.0-4.8); ABS Monocytes 0.8 10^3/ul (0-0.8); ABS Neutrophils 7.8 10^3/ul (1.5-7.7); Eosinophil % 0.7 %; Hematocrit 34 % (35-47); Hemoglobin 11.8 g/dL (12.0-16.0); Lymphocyte % 7.1 %; Mean Corpuscular HGB Conc 35 g/dL (31-36); Mean Corpuscular Hemoglobin 31 pg (27-31); Mean Corpuscular Volume 89 fL (80-97); Mean Platelet Volume 7.8 fL (7.4-10.4); Platelet Count 144 10^3/uL (150-450); Red Blood Count 3.82 10^6 /uL (3.70-4.87); Red Cell Distribution Width 14 % (10-15); White Blood Count 9.3 10^3/uL (3.5-10.8)
[2021-09-19 08:51] LABS: Calcium 8.5 mg/dL (8.6-10.3); Magnesium 1.8 mg/dL (1.9-2.7); Potassium 3.9 mmol/L (3.5-5.0)
[2021-09-19 08:56] LABS: eGFR CKD-EPI 95.6 (>60)
[2021-09-19] MEDS: Cholecalciferol (VIT D3) 1,000 unit TAB PO SCH (09:54)
[2021-09-19 13:06] VITALS: BP 120/50
== END 2021-09-19 15:00 | disposition home or self-care (01) | DRG 196 ==
LOC: ED 13:27 → EDHOLD 17:27 → MEDTELE 18:35
PROVIDERS: ADMIT Internal Medicine; ATTEND Internal Medicine

== ENCOUNTER 2022-02-25 13:37 | Inpatient (IN) ==
[2022-02-25] MEDS ORDERED: cefTRIAXone 1 gm/50 mL D5W 1 GM/50 ML BAG IV ONE (15:04)
[2022-02-25] MEDS ORDERED: Azithromycin 500 mg/250 ml NS 500 MG/250 ML BAG IVPB ONE (15:04)
[2022-02-25 16:06] LABS: High Sens Troponin Baseline 303 pg/mL (<15)
[2022-02-25 16:28] LABS: ALT 17 U/L (7-52); Albumin 3.5 g/dL (3.2-5.2); Albumin/Globulin Ratio 1.5 (1-3); Alkaline Phosphatase 47 U/L (35-149); Blood Urea Nitrogen 14 mg/dL (6-24); CO2 Carbon Dioxide 30 mmol/L (22-32); Calcium 9.8 mg/dL (8.6-10.3); Chloride 96 mmol/L (101-111); Globulin 2.3 g/dL (2-4); Glucose 99 mg/dL (70-100); Sodium 134 mmol/L (135-145); Total Protein 5.8 g/dL (6.4-8.9); eGFR CKD-EPI 67.8 (>60)
[2022-02-25 16:36] LABS: Anion Gap 8 mmol/L (2-11)
[2022-02-25 16:51] LABS: Activated Partial Thrombo Time 34.7 seconds (26.0-38.0)
[2022-02-25 17:02] LABS: ABS Eosinophils 0.3 10^3/ul (0-0.6); ABS Lymphocytes 1.5 10^3/ul (1.0-4.8); ABS Monocytes 1.2 10^3/ul (0-0.8); Eosinophil % 2.6 %; Hematocrit 38 % (35-47); Hemoglobin 12.7 g/dL (12.0-16.0); Lymphocyte % 11.4 %; Mean Corpuscular HGB Conc 34 g/dL (31-36); Mean Corpuscular Hemoglobin 30 pg (27-31); Mean Corpuscular Volume 90 fL (80-97); Mean Platelet Volume 7.3 fL (7.4-10.4); Platelet Count 174 10^3/uL (150-450); Red Blood Count 4.21 10^6 /uL (3.70-4.87); Red Cell Distribution Width 14 % (10-15); White Blood Count 13.1 10^3/uL (3.5-10.8)
[2022-02-25 17:27] LABS: High Sensitivity Troponin 1 Hr 326 pg/mL (<15)
[2022-02-25 20:31] LABS: High Sensitivity Troponin 3 Hr 327 pg/mL (<15)
[2022-02-25] MEDS ORDERED: Piperacillin/Tazobac ADVAN 3.375 GM in NS 0.9% 100 ml BAG 100 ML IV ONE (20:35)
[2022-02-25] MEDS ORDERED: Albuterol 2.5mg/3 ml (0.083%) NEB.SOLN INH PRN (20:36)
[2022-02-25 20:50] LABS: Potassium Redraw 4.8 mmol/L (3.5-5.0)
[2022-02-25] MEDS ORDERED: Lactulose 30 ml UDC PO PRN (20:53)
[2022-02-25] MEDS ORDERED: Zosyn per Pharmacy NOTE FOLLOW UP SCH (21:00)
[2022-02-25] MEDS ORDERED: Sodium Chloride(INHALANT) 3% 4 ML NEB.SOLN INH ONE (21:33)
[2022-02-25 23:52] LABS: Magnesium 1.5 mg/dL (1.9-2.7)
[2022-02-26] MEDS ORDERED: Magnesium Sulf 4 GM/100 ML IV 4,000 MG/100 ML BAG IVPB ONE (00:02)
[2022-02-26] MEDS ORDERED: ZOSYN 3.375 GM Q8H per EXTENDED INFUSION IV SCH (01:00)
[2022-02-26 02:19] LABS: High Sensitivity Troponin 1 Hr 342 pg/mL (<15)
[2022-02-26 06:30] LABS: ABS Lymphocytes 0.6 10^3/ul (1.0-4.8); ABS Monocytes 0.2 10^3/ul (0-0.8); ABS Neutrophils 7.5 10^3/ul (1.5-7.7); Eosinophil % 0.5 %; Hematocrit 42 % (35-47); Lymphocyte % 6.9 %; Mean Corpuscular HGB Conc 33 g/dL (31-36); Mean Corpuscular Hemoglobin 31 pg (27-31); Mean Corpuscular Volume 93 fL (80-97); Mean Platelet Volume 7.2 fL (7.4-10.4); Platelet Count 151 10^3/uL (150-450); Red Blood Count 4.56 10^6 /uL (3.70-4.87); Red Cell Distribution Width 14 % (10-15); White Blood Count 8.3 10^3/uL (3.5-10.8)
[2022-02-26 07:10] LABS: Blood Urea Nitrogen 14 mg/dL (6-24); CO2 Carbon Dioxide 25 mmol/L (22-32); Calcium 9.3 mg/dL (8.6-10.3); Chloride 96 mmol/L (101-111); Glucose 67 mg/dL (70-100); Magnesium 2.6 mg/dL (1.9-2.7); Sodium 135 mmol/L (135-145); eGFR CKD-EPI 75.1 (>60)
[2022-02-26 07:37] LABS: Anion Gap 14 mmol/L (2-11)
[2022-02-26] MEDS: Tiotropium Brom/Olodaterol MDI INH SCH (08:41)
[2022-02-26 08:43] LABS: Phosphorus 5.7 mg/dL (2.5-5.0)
[2022-02-26] MEDS: Aspirin EC 81 mg TAB.EC (enteric coated) PO SCH (09:44)
[2022-02-26] MEDS: Cholecalciferol (VIT D3) 1,000 unit TAB PO SCH (09:44)
[2022-02-26] MEDS: DULoxetine DR 30 mg CAP PO SCH (09:44)
[2022-02-26] MEDS: PTO: Linaclotide 290 mcg CAP (NF) PO SCH (09:45)
[2022-02-26] MEDS: ZOSYN 3.375 GM Q8H per EXTENDED INFUSION IV SCH ×2 (12:48→19:31)
[2022-02-27] MEDS: ZOSYN 3.375 GM Q8H per EXTENDED INFUSION IV SCH ×3 (04:01→19:51)
[2022-02-27 06:55] LABS: Hematocrit 36 % (35-47); Hemoglobin 12.4 g/dL (12.0-16.0); Mean Corpuscular HGB Conc 34 g/dL (31-36); Mean Corpuscular Hemoglobin 30 pg (27-31); Mean Corpuscular Volume 89 fL (80-97); Mean Platelet Volume 7.4 fL (7.4-10.4); Platelet Count 185 10^3/uL (150-450); Red Blood Count 4.09 10^6 /uL (3.70-4.87); Red Cell Distribution Width 14 % (10-15); White Blood Count 14.2 10^3/uL (3.5-10.8)
[2022-02-27 07:07] LABS: Calcium 9.3 mg/dL (8.6-10.3); Magnesium 1.7 mg/dL (1.9-2.7); Potassium 3.6 mmol/L (3.5-5.0); eGFR CKD-EPI 64.2 (>60)
[2022-02-27] MEDS ORDERED: Magnesium Sulfate 2 gm BAG 2 GM/50 ML BAG IVPB ONE (07:26)
[2022-02-27] MEDS: Tiotropium Brom/Olodaterol MDI INH SCH (07:35)
[2022-02-27] MEDS: DULoxetine DR 30 mg CAP PO SCH (09:28)
[2022-02-27] MEDS: Cholecalciferol (VIT D3) 1,000 unit TAB PO SCH (09:29)
[2022-02-27] MEDS: PTO: Linaclotide 290 mcg CAP (NF) PO SCH (09:30)
[2022-02-27] MEDS: Aspirin EC 81 mg TAB.EC (enteric coated) PO SCH (09:30)
[2022-02-28] MEDS: ZOSYN 3.375 GM Q8H per EXTENDED INFUSION IV SCH ×3 (03:39→20:08)
[2022-02-28 06:57] LABS: Hematocrit 37 % (35-47); Hemoglobin 12.3 g/dL (12.0-16.0); Mean Corpuscular HGB Conc 34 g/dL (31-36); Mean Corpuscular Hemoglobin 30 pg (27-31); Mean Corpuscular Volume 89 fL (80-97); Mean Platelet Volume 7.3 fL (7.4-10.4); Platelet Count 188 10^3/uL (150-450); Red Cell Distribution Width 14 % (10-15); White Blood Count 11.4 10^3/uL (3.5-10.8)
[2022-02-28 07:29] LABS: Calcium 8.6 mg/dL (8.6-10.3); Magnesium 1.8 mg/dL (1.9-2.7); Potassium 3.6 mmol/L (3.5-5.0); eGFR CKD-EPI 88.4 (>60)
[2022-02-28] MEDS: Tiotropium Brom/Olodaterol MDI INH SCH (07:33)
[2022-02-28] MEDS: DULoxetine DR 30 mg CAP PO SCH (09:28)
[2022-02-28] MEDS: Cholecalciferol (VIT D3) 1,000 unit TAB PO SCH (09:28)
[2022-02-28] MEDS: Aspirin EC 81 mg TAB.EC (enteric coated) PO SCH ×2 (09:29→09:33)
[2022-02-28] MEDS: PTO: Linaclotide 290 mcg CAP (NF) PO SCH (09:33)
[2022-02-28] MEDS ORDERED: Potassium Chloride LIQUID 20 MEQ/15 ML LIQUID PO ONE (15:05)
[2022-02-28] MEDS ORDERED: Magnesium Sulfate 2 gm BAG 2 GM/50 ML BAG IV ONE (15:30)
[2022-02-28] MEDS ORDERED: Magnesium Sulfate 1 GM IV 1 GM/100 ML BAG IV ONE (16:30)
[2022-03-01] MEDS: ZOSYN 3.375 GM Q8H per EXTENDED INFUSION IV SCH ×3 (03:30→20:36)
[2022-03-01 06:03] LABS: Hematocrit 35 % (35-47); Hemoglobin 11.7 g/dL (12.0-16.0); Mean Corpuscular HGB Conc 33 g/dL (31-36); Mean Corpuscular Hemoglobin 30 pg (27-31); Mean Corpuscular Volume 89 fL (80-97); Mean Platelet Volume 7.4 fL (7.4-10.4); Platelet Count 188 10^3/uL (150-450); Red Blood Count 3.95 10^6 /uL (3.70-4.87); Red Cell Distribution Width 14 % (10-15); White Blood Count 9.5 10^3/uL (3.5-10.8)
[2022-03-01 06:58] LABS: Magnesium 2.1 mg/dL (1.9-2.7); Potassium 4.1 mmol/L (3.5-5.0)
[2022-03-01 07:04] LABS: eGFR CKD-EPI 94.6 (>60)
[2022-03-01] MEDS: Tiotropium Brom/Olodaterol MDI INH SCH (07:32)
[2022-03-01] MEDS: Aspirin EC 81 mg TAB.EC (enteric coated) PO SCH (09:22)
[2022-03-01] MEDS: Cholecalciferol (VIT D3) 1,000 unit TAB PO SCH (09:22)
[2022-03-01] MEDS: DULoxetine DR 30 mg CAP PO SCH (09:23)
[2022-03-01] MEDS ORDERED: methylPREDNISolone SOD SUCC 40 mg/ml 1 ml VIAL IV ONE (09:53)
[2022-03-01 10:35] LABS: PCO2 Arterial 49 mmHg (35-45); PO2 Arterial 68 mmHg (80-100)
[2022-03-01] MEDS: PTO: Linaclotide 290 mcg CAP (NF) PO SCH (11:06)
[2022-03-01] MEDS: Polyethylene Glycol 3350 17 GM PACKET PO SCH ×2 (12:41→20:27)
[2022-03-01 14:56] LABS: Aspergillus (Galactomannan) Ag <0.500 index (<0.5)
[2022-03-01 17:07] LABS: Aspergillus IgG Ab 17.7 mg/L (<=102)
[2022-03-01] MEDS: methylPREDNISolone SOD SUCC 40 mg/ml 1 ml VIAL IV SCH (17:36)
[2022-03-01] MEDS ORDERED: Acetylcysteine INH SOL (RT) 200 MG/ML 4 ML VIAL INH PRN (18:35)
[2022-03-02] MEDS: methylPREDNISolone SOD SUCC 40 mg/ml 1 ml VIAL IV SCH ×3 (02:04→17:41)
[2022-03-02] MEDS: ZOSYN 3.375 GM Q8H per EXTENDED INFUSION IV SCH ×3 (04:49→20:02)
[2022-03-02] MEDS: Albuterol/Ipratropium NEB.SOL (2.5/0.5 MG) 3 ML NEB.SOLN INH PRN ×3 (08:18→21:04)
[2022-03-02] MEDS: Tiotropium Brom/Olodaterol MDI INH SCH (08:18)
[2022-03-02] MEDS: Sodium Chloride(INHALANT)0.9% 5 ML NEB.SOLN INH PRN ×2 (08:19→13:25)
[2022-03-02] MEDS: Cholecalciferol (VIT D3) 1,000 unit TAB PO SCH (09:43)
[2022-03-02] MEDS: Aspirin EC 81 mg TAB.EC (enteric coated) PO SCH (09:47)
[2022-03-02] MEDS: Polyethylene Glycol 3350 17 GM PACKET PO SCH ×2 (09:49→20:07)
[2022-03-02] MEDS: DULoxetine DR 30 mg CAP PO SCH (10:12)
[2022-03-02] MEDS: PTO: Linaclotide 290 mcg CAP (NF) PO SCH (10:12)
[2022-03-03] MEDS: ZOSYN 3.375 GM Q8H per EXTENDED INFUSION IV SCH ×3 (04:13→20:17)
[2022-03-03] MEDS: Albuterol/Ipratropium NEB.SOL (2.5/0.5 MG) 3 ML NEB.SOLN INH PRN ×2 (07:37→20:16)
[2022-03-03 07:41] LABS: ABS Lymphocytes 0.5 10^3/ul (1.0-4.8); ABS Monocytes 0.6 10^3/ul (0-0.8); ABS Neutrophils 7.9 10^3/ul (1.5-7.7); Eosinophil % 0.1 %; Hematocrit 35 % (35-47); Hemoglobin 11.8 g/dL (12.0-16.0); Lymphocyte % 5.7 %; Mean Corpuscular HGB Conc 33 g/dL (31-36); Mean Corpuscular Hemoglobin 30 pg (27-31); Mean Corpuscular Volume 89 fL (80-97); Mean Platelet Volume 7.5 fL (7.4-10.4); Platelet Count 247 10^3/uL (150-450); Red Blood Count 3.96 10^6 /uL (3.70-4.87); Red Cell Distribution Width 14 % (10-15)
[2022-03-03] MEDS: Tiotropium Brom/Olodaterol MDI INH SCH (07:45)
[2022-03-03 08:12] LABS: Calcium 8.7 mg/dL (8.6-10.3); Magnesium 1.8 mg/dL (1.9-2.7); Potassium 4.4 mmol/L (3.5-5.0); eGFR CKD-EPI 92.9 (>60)
[2022-03-03] MEDS: Aspirin EC 81 mg TAB.EC (enteric coated) PO SCH (09:11)
[2022-03-03] MEDS: DULoxetine DR 30 mg CAP PO SCH (09:12)
[2022-03-03] MEDS: Cholecalciferol (VIT D3) 1,000 unit TAB PO SCH (09:13)
[2022-03-03] MEDS: Polyethylene Glycol 3350 17 GM PACKET PO SCH ×2 (09:14→20:17)
[2022-03-03] MEDS: PTO: Linaclotide 290 mcg CAP (NF) PO SCH (10:28)
[2022-03-03] MEDS ORDERED: Magnesium Sulfate 2 gm BAG 2 GM/50 ML BAG IVPB ONE (10:54)
[2022-03-04] MEDS: ZOSYN 3.375 GM Q8H per EXTENDED INFUSION IV SCH ×3 (03:23→21:32)
[2022-03-04 05:59] LABS: Albumin 3.2 g/dL (3.2-5.2); Albumin/Globulin Ratio 1.6 (1-3); Calcium 8.6 mg/dL (8.6-10.3); Magnesium 1.9 mg/dL (1.9-2.7); Potassium 3.8 mmol/L (3.5-5.0); Total Bilirubin 0.7 mg/dL (0.2-1.0); Total Protein 5.2 g/dL (6.4-8.9); eGFR CKD-EPI 91.2 (>60)
[2022-03-04] MEDS: DULoxetine DR 30 mg CAP PO SCH (09:13)
[2022-03-04] MEDS: Aspirin EC 81 mg TAB.EC (enteric coated) PO SCH (09:13)
[2022-03-04] MEDS: Cholecalciferol (VIT D3) 1,000 unit TAB PO SCH (09:14)
[2022-03-04] MEDS: Polyethylene Glycol 3350 17 GM PACKET PO SCH ×2 (09:16→21:30)
[2022-03-04] MEDS: PTO: Linaclotide 290 mcg CAP (NF) PO SCH ×2 (09:17→09:18)
[2022-03-04] MEDS: Tiotropium Brom/Olodaterol MDI INH SCH (09:24)
[2022-03-05] MEDS: ZOSYN 3.375 GM Q8H per EXTENDED INFUSION IV SCH ×3 (04:38→22:07)
[2022-03-05 06:54] LABS: ABS Eosinophils 0.1 10^3/ul (0-0.6); ABS Lymphocytes 0.9 10^3/ul (1.0-4.8); ABS Monocytes 0.9 10^3/ul (0-0.8); ABS Neutrophils 8.9 10^3/ul (1.5-7.7); Eosinophil % 0.7 %; Hematocrit 36 % (35-47); Hemoglobin 12.2 g/dL (12.0-16.0); Lymphocyte % 8.2 %; Mean Corpuscular HGB Conc 34 g/dL (31-36); Mean Corpuscular Hemoglobin 30 pg (27-31); Mean Corpuscular Volume 89 fL (80-97); Platelet Count 274 10^3/uL (150-450); Red Blood Count 4.03 10^6 /uL (3.70-4.87); Red Cell Distribution Width 14 % (10-15); White Blood Count 10.7 10^3/uL (3.5-10.8)
[2022-03-05 07:41] LABS: Calcium 8.7 mg/dL (8.6-10.3); Magnesium 1.8 mg/dL (1.9-2.7); Potassium 4.2 mmol/L (3.5-5.0); eGFR CKD-EPI 90.5 (>60)
[2022-03-05] MEDS: Tiotropium Brom/Olodaterol MDI INH SCH (08:14)
[2022-03-05] MEDS: Polyethylene Glycol 3350 17 GM PACKET PO SCH ×2 (08:32→22:06)
[2022-03-05] MEDS: DULoxetine DR 30 mg CAP PO SCH ×2 (08:33→09:00)
[2022-03-05] MEDS: Aspirin EC 81 mg TAB.EC (enteric coated) PO SCH (08:34)
[2022-03-05] MEDS: Cholecalciferol (VIT D3) 1,000 unit TAB PO SCH (08:34)
[2022-03-05] MEDS: PTO: Linaclotide 290 mcg CAP (NF) PO SCH (08:35)
[2022-03-05] MEDS ORDERED: Magnesium Sulfate 2 gm BAG 2 GM/50 ML BAG IVPB ONE (09:30)
[2022-03-05] MEDS: Albuterol/Ipratropium NEB.SOL (2.5/0.5 MG) 3 ML NEB.SOLN INH PRN (20:42)
[2022-03-06] MEDS: ZOSYN 3.375 GM Q8H per EXTENDED INFUSION IV SCH ×3 (05:08→21:36)
[2022-03-06 07:09] LABS: ABS Eosinophils 0.1 10^3/ul (0-0.6); ABS Lymphocytes 0.9 10^3/ul (1.0-4.8); ABS Monocytes 0.8 10^3/ul (0-0.8); Eosinophil % 0.7 %; Hematocrit 33 % (35-47); Lymphocyte % 10.1 %; Mean Corpuscular HGB Conc 34 g/dL (31-36); Mean Corpuscular Hemoglobin 30 pg (27-31); Mean Corpuscular Volume 89 fL (80-97); Mean Platelet Volume 7.1 fL (7.4-10.4); Platelet Count 248 10^3/uL (150-450); Red Blood Count 3.66 10^6 /uL (3.70-4.87); Red Cell Distribution Width 14 % (10-15); White Blood Count 8.8 10^3/uL (3.5-10.8)
[2022-03-06 07:20] LABS: Calcium 6.6 mg/dL (8.6-10.3); Magnesium 1.6 mg/dL (1.9-2.7); Potassium 3.4 mmol/L (3.5-5.0); eGFR CKD-EPI 95.1 (>60)
[2022-03-06] MEDS ORDERED: Senna TAB 8.6 mg TAB PO PRN (07:22)
[2022-03-06] MEDS ORDERED: Magnesium Sulfate 2 gm BAG 2 GM/50 ML BAG IVPB ONE (07:25)
[2022-03-06] MEDS: Tiotropium Brom/Olodaterol MDI INH SCH (08:31)
[2022-03-06] MEDS: Polyethylene Glycol 3350 17 GM PACKET PO SCH ×2 (09:54→21:33)
[2022-03-06] MEDS: Cholecalciferol (VIT D3) 1,000 unit TAB PO SCH (09:56)
[2022-03-06] MEDS: DULoxetine DR 30 mg CAP PO SCH (09:57)
[2022-03-06] MEDS: PTO: Linaclotide 290 mcg CAP (NF) PO SCH (09:58)
[2022-03-06] MEDS: Aspirin EC 81 mg TAB.EC (enteric coated) PO SCH (10:04)
[2022-03-06 11:26] LABS: Blood Urea Nitrogen 10 mg/dL (6-24); CO2 Carbon Dioxide 24 mmol/L (22-32); Calcium 10.3 mg/dL (8.6-10.3); Glucose 80 mg/dL (70-100); eGFR CKD-EPI 70.8 (>60)
[2022-03-06 11:58] LABS: Anion Gap 3 mmol/L (2-11)
[2022-03-06 12:41] LABS: Calcium 9.1 mg/dL (8.6-10.3); Potassium 4.1 mmol/L (3.5-5.0); eGFR CKD-EPI 88.7 (>60)
[2022-03-06] MEDS ORDERED: DUPIXENT SUBCUT ONE (13:00)
[2022-03-06] MEDS: Senna TAB 8.6 mg TAB PO SCH (14:03)
[2022-03-07] MEDS: ZOSYN 3.375 GM Q8H per EXTENDED INFUSION IV SCH ×3 (05:28→20:39)
[2022-03-07] MEDS: PTO: Linaclotide 290 mcg CAP (NF) PO SCH (08:37)
[2022-03-07] MEDS: Senna TAB 8.6 mg TAB PO SCH (08:37)
[2022-03-07] MEDS: DULoxetine DR 30 mg CAP PO SCH (08:37)
[2022-03-07] MEDS: Cholecalciferol (VIT D3) 1,000 unit TAB PO SCH (08:39)
[2022-03-07] MEDS: Aspirin EC 81 mg TAB.EC (enteric coated) PO SCH (08:40)
[2022-03-07] MEDS: Polyethylene Glycol 3350 17 GM PACKET PO SCH ×2 (08:42→20:32)
[2022-03-07] MEDS: Tiotropium Brom/Olodaterol MDI INH SCH (08:52)
[2022-03-07 13:05] LABS: Hematocrit 42 % (35-47); Hemoglobin 14.1 g/dL (12.0-16.0); Mean Corpuscular HGB Conc 33 g/dL (31-36); Mean Corpuscular Hemoglobin 30 pg (27-31); Mean Corpuscular Volume 89 fL (80-97); Mean Platelet Volume 7.4 fL (7.4-10.4); Platelet Count 366 10^3/uL (150-450); Red Blood Count 4.76 10^6 /uL (3.70-4.87); Red Cell Distribution Width 14 % (10-15); White Blood Count 15.3 10^3/uL (3.5-10.8)
[2022-03-07 13:39] LABS: Calcium 9.5 mg/dL (8.6-10.3); Potassium 4.6 mmol/L (3.5-5.0); eGFR CKD-EPI 86.8 (>60)
[2022-03-07 13:44] LABS: ABS Eosinophils 0.1 10^3/ul (0-0.6); ABS Lymphocytes 0.7 10^3/ul (1.0-4.8); ABS Monocytes 0.6 10^3/ul (0-0.8); ABS Neutrophils 13.9 10^3/ul (1.5-7.7); Eosinophil % 0.5 %; Lymphocyte % 4.4 %
[2022-03-08] MEDS: ZOSYN 3.375 GM Q8H per EXTENDED INFUSION IV SCH ×2 (04:22→12:21)
[2022-03-08 06:16] LABS: Hematocrit 40 % (35-47); Hemoglobin 13.5 g/dL (12.0-16.0); Mean Corpuscular HGB Conc 34 g/dL (31-36); Mean Corpuscular Hemoglobin 30 pg (27-31); Mean Corpuscular Volume 89 fL (80-97); Platelet Count 337 10^3/uL (150-450); Red Blood Count 4.52 10^6 /uL (3.70-4.87); Red Cell Distribution Width 14 % (10-15); White Blood Count 10.8 10^3/uL (3.5-10.8)
[2022-03-08 06:34] LABS: ABS Eosinophils 0.2 10^3/ul (0-0.6); ABS Monocytes 0.9 10^3/ul (0-0.8); ABS Neutrophils 7.7 10^3/ul (1.5-7.7); Eosinophil % 1.4 %; Lymphocyte % 18.6 %; Nucleated Red Blood Cells % 0.1
[2022-03-08 06:52] LABS: Calcium 9.1 mg/dL (8.6-10.3); Magnesium 1.9 mg/dL (1.9-2.7); Potassium 4.2 mmol/L (3.5-5.0); eGFR CKD-EPI 87.1 (>60)
[2022-03-08] MEDS: Tiotropium Brom/Olodaterol MDI INH SCH (08:21)
[2022-03-08] MEDS: Cholecalciferol (VIT D3) 1,000 unit TAB PO SCH (08:33)
[2022-03-08] MEDS: PTO: Linaclotide 290 mcg CAP (NF) PO SCH (08:33)
[2022-03-08] MEDS: Polyethylene Glycol 3350 17 GM PACKET PO SCH ×2 (08:33→21:47)
[2022-03-08] MEDS: Senna TAB 8.6 mg TAB PO SCH (08:35)
[2022-03-08] MEDS: DULoxetine DR 30 mg CAP PO SCH (08:35)
[2022-03-08] MEDS: Aspirin EC 81 mg TAB.EC (enteric coated) PO SCH (08:36)
[2022-03-09 06:02] LABS: ABS Eosinophils 0.2 10^3/ul (0-0.6); ABS Monocytes 1.1 10^3/ul (0-0.8); ABS Neutrophils 9.1 10^3/ul (1.5-7.7); Eosinophil % 1.6 %; Hematocrit 41 % (35-47); Hemoglobin 13.8 g/dL (12.0-16.0); Lymphocyte % 16.2 %; Mean Corpuscular HGB Conc 34 g/dL (31-36); Mean Corpuscular Hemoglobin 30 pg (27-31); Mean Corpuscular Volume 90 fL (80-97); Mean Platelet Volume 7.1 fL (7.4-10.4); Platelet Count 278 10^3/uL (150-450); Red Blood Count 4.57 10^6 /uL (3.70-4.87); Red Cell Distribution Width 14 % (10-15); White Blood Count 12.4 10^3/uL (3.5-10.8)
[2022-03-09 06:26] LABS: Calcium 9.2 mg/dL (8.6-10.3); Magnesium 1.8 mg/dL (1.9-2.7); Potassium 4.1 mmol/L (3.5-5.0)
[2022-03-09 06:32] LABS: eGFR CKD-EPI 87.8 (>60)
[2022-03-09] MEDS: Tiotropium Brom/Olodaterol MDI INH SCH (07:22)
[2022-03-09] MEDS: Senna TAB 8.6 mg TAB PO SCH (09:10)
[2022-03-09] MEDS: Polyethylene Glycol 3350 17 GM PACKET PO SCH ×2 (09:10→21:36)
[2022-03-09] MEDS: PTO: Linaclotide 290 mcg CAP (NF) PO SCH (09:11)
[2022-03-09] MEDS: Cholecalciferol (VIT D3) 1,000 unit TAB PO SCH (09:12)
[2022-03-09] MEDS: Aspirin EC 81 mg TAB.EC (enteric coated) PO SCH (09:14)
[2022-03-09] MEDS: DULoxetine DR 30 mg CAP PO SCH (09:14)
[2022-03-10] MEDS: Tiotropium Brom/Olodaterol MDI INH SCH (07:53)
[2022-03-10] MEDS: Polyethylene Glycol 3350 17 GM PACKET PO SCH ×2 (10:06→20:59)
[2022-03-10] MEDS: DULoxetine DR 30 mg CAP PO SCH (10:06)
[2022-03-10] MEDS: Cholecalciferol (VIT D3) 1,000 unit TAB PO SCH (10:07)
[2022-03-10] MEDS: Senna TAB 8.6 mg TAB PO SCH (10:07)
[2022-03-10] MEDS: Aspirin EC 81 mg TAB.EC (enteric coated) PO SCH (10:09)
[2022-03-10] MEDS: PTO: Linaclotide 290 mcg CAP (NF) PO SCH (10:13)
[2022-03-10] MEDS: Albuterol HFA INHALER 8 gm MDI INH PRN (15:56)
[2022-03-10 21:30] LABS: Rapid COVID-19 Molecular Undetected (Undetected)
[2022-03-11] MEDS: Tiotropium Brom/Olodaterol MDI INH SCH (07:29)
[2022-03-11] MEDS: Albuterol HFA INHALER 8 gm MDI INH PRN ×2 (07:29→12:50)
[2022-03-11] MEDS: Aspirin EC 81 mg TAB.EC (enteric coated) PO SCH (10:03)
[2022-03-11] MEDS: Polyethylene Glycol 3350 17 GM PACKET PO SCH (10:03)
[2022-03-11] MEDS: DULoxetine DR 30 mg CAP PO SCH (10:03)
[2022-03-11] MEDS: Senna TAB 8.6 mg TAB PO SCH (10:04)
[2022-03-11] MEDS: Cholecalciferol (VIT D3) 1,000 unit TAB PO SCH (10:04)
[2022-03-11] MEDS: PTO: Linaclotide 290 mcg CAP (NF) PO SCH (10:10)
[2022-03-11 14:03] VITALS: BP 142/109
== END 2022-03-11 15:00 | DRG 871 ==
LOC: ED 13:37 → EDHOLD 20:47 → SUATTDRO 20:47 → MEDTELE 22:37 → MED 03-04 23:19
PROVIDERS: ADMIT Internal Medicine; ATTEND Internal Medicine

== ENCOUNTER 2022-05-31 15:12 | Inpatient (IN) ==
[2022-05-31] MEDS ORDERED: Furosemide 20 mg/2 ml IV VIAL IV SLOW PU ONE (15:24)
[2022-05-31] MEDS ORDERED: Piperacillin/Tazobac ADVAN 3.375 GM in NS 0.9% 100 ml BAG 100 ML IV ONE (15:26)
[2022-05-31] MEDS ORDERED: methylPREDNISolone SOD SUCC 125 mg 2 ML VIAL IV ONE (15:26)
[2022-05-31 16:23] LABS: ABS Eosinophils 0.1 10^3/ul (0-0.6); ABS Lymphocytes 1.2 10^3/ul (1.0-4.8); ABS Monocytes 1.3 10^3/ul (0-0.8); ABS Neutrophils 7.1 10^3/ul (1.5-7.7); Eosinophil % 0.8 %; Hematocrit 37 % (35-47); Hemoglobin 11.9 g/dL (12.0-16.0); Lymphocyte % 12.6 %; Mean Corpuscular HGB Conc 32 g/dL (31-36); Mean Corpuscular Hemoglobin 29 pg (27-31); Mean Corpuscular Volume 88 fL (80-97); Mean Platelet Volume 7.8 fL (7.4-10.4); Platelet Count 162 10^3/uL (150-450); Red Blood Count 4.15 10^6 /uL (3.70-4.87); Red Cell Distribution Width 15 % (10-15); White Blood Count 9.8 10^3/uL (3.5-10.8)
[2022-05-31 16:42] LABS: PCO2 Arterial 48 mmHg (35-45); PO2 Arterial 119 mmHg (80-100)
[2022-05-31] MEDS ORDERED: Albuterol HFA INHALER 8 gm MDI INH PRN (17:16)
[2022-05-31] MEDS ORDERED: Albuterol 2.5mg/3 ml (0.083%) NEB.SOLN INH PRN (17:16)
[2022-05-31 17:41] LABS: Albumin 3.8 g/dL (3.2-5.2); Albumin/Globulin Ratio 1.8 (1-3); C Reactive Protein 122.89 mg/L (<8.01); Calcium 8.7 mg/dL (8.6-10.3); Globulin 2.1 g/dL (2-4); Magnesium 1.4 mg/dL (1.9-2.7); Potassium 3.5 mmol/L (3.5-5.0); Total Bilirubin 0.7 mg/dL (0.2-1.0); Total Protein 5.9 g/dL (6.4-8.9); eGFR CKD-EPI 89.8 (>60)
[2022-05-31 18:04] LABS: High Sensitivity Troponin 1 Hr 149 pg/mL (<15)
[2022-05-31] MEDS: cefTRIAXone 1 gm/50 mL D5W 1 GM/50 ML BAG IV SCH (18:16)
[2022-05-31 18:56] LABS: Osmolality Serum 280 mOsm/kg (275-295)
[2022-05-31] MEDS ORDERED: Albuterol 2.5mg/3 ml (0.083%) NEB.SOLN INH SCH ×2 (19:00→20:00)
[2022-05-31] MEDS ORDERED: Albuterol 2.5mg/3 ml (0.083%) NEB.SOLN INH ONE (19:23)
[2022-05-31] MEDS: Azithromycin 500 mg/250 ml NS 500 MG/250 ML BAG IVPB SCH (20:50)
[2022-06-01 04:52] LABS: ABS Lymphocytes 0.5 10^3/ul (1.0-4.8); ABS Monocytes 0.6 10^3/ul (0-0.8); ABS Neutrophils 5.1 10^3/ul (1.5-7.7); Hematocrit 38 % (35-47); Hemoglobin 12.4 g/dL (12.0-16.0); Lymphocyte % 8.5 %; Mean Corpuscular HGB Conc 32 g/dL (31-36); Mean Corpuscular Hemoglobin 29 pg (27-31); Mean Corpuscular Volume 88 fL (80-97); Mean Platelet Volume 7.9 fL (7.4-10.4); Platelet Count 147 10^3/uL (150-450); Red Blood Count 4.36 10^6 /uL (3.70-4.87); Red Cell Distribution Width 15 % (10-15); White Blood Count 6.3 10^3/uL (3.5-10.8)
[2022-06-01] MEDS: methylPREDNISolone SOD SUCC 40 mg/ml 1 ml VIAL IV SCH ×2 (05:26→17:24)
[2022-06-01] MEDS: Furosemide 20 mg/2 ml IV VIAL IV SLOW PU SCH ×2 (05:26→13:45)
[2022-06-01 05:47] LABS: Anion Gap 10 mmol/L (2-11); Blood Urea Nitrogen 15 mg/dL (6-24); CO2 Carbon Dioxide 32 mmol/L (22-32); Calcium 8.5 mg/dL (8.6-10.3); Chloride 93 mmol/L (101-111); Glucose 130 mg/dL (70-100); Potassium 3.5 mmol/L (3.5-5.0); Sodium 135 mmol/L (135-145)
[2022-06-01] MEDS: Albuterol 2.5mg/3 ml (0.083%) NEB.SOLN INH SCH ×3 (07:37→20:17)
[2022-06-01 08:47] LABS: Total Iron Binding Capacity 309 mcg/dL (250-450); Transferrin 221 mg/dL (203-362)
[2022-06-01 08:50] LABS: % Iron Saturation 6 % (15-55); Iron < 20 ug/dL (50-212); Unsaturated Iron Binding 289 ug/dL
[2022-06-01] MEDS: Cholecalciferol (VIT D3) 1,000 unit TAB PO SCH (09:32)
[2022-06-01] MEDS: Tiotropium Brom/Olodaterol MDI INH SCH (09:33)
[2022-06-01] MEDS: PTO: Linaclotide 290 mcg CAP (NF) PO SCH (11:42)
[2022-06-01] MEDS: Iron Sucrose 200 MG in NS 0.9% 100 ml BAG 100 ML IVPB SCH (12:02)
[2022-06-01] MEDS: Polyethylene Glycol 3350 17 GM PACKET PO SCH ×2 (12:34→20:47)
[2022-06-01] MEDS ORDERED: Furosemide 40 mg/4 ml IV VIAL IV SLOW PU ONE (17:36)
[2022-06-01] MEDS ORDERED: Albuterol/Ipratropium NEB.SOL (2.5/0.5 MG) 3 ML NEB.SOLN ONE (17:38)
[2022-06-01] MEDS ORDERED: Albuterol/Ipratropium NEB.SOL (2.5/0.5 MG) 3 ML NEB.SOLN INH ONE (17:38)
[2022-06-01] MEDS ORDERED: Furosemide 40 mg/4 ml IV VIAL ONE (17:40)
[2022-06-01] MEDS ORDERED: nitroGLYCERIN DRIP 25,000 MCG/250 ML BTL ONE (17:40)
[2022-06-01 18:01] LABS: PCO2 Arterial 50 mmHg (35-45); PO2 Arterial 183 mmHg (80-100)
[2022-06-01] MEDS: Saline FLUSH-CENTRAL 10 ML SYRINGE CENT\\PICC SCH (18:04)
[2022-06-01] MEDS: cefTRIAXone 1 gm/50 mL D5W 1 GM/50 ML BAG IV SCH (18:05)
[2022-06-01] MEDS: Azithromycin 500 mg/250 ml NS 500 MG/250 ML BAG IVPB SCH (18:29)
[2022-06-01 19:20] LABS: High Sensitivity Troponin 1 Hr 131 pg/mL (<15)
[2022-06-01] MEDS: Senna TAB 8.6 mg TAB PO SCH (20:47)
[2022-06-01] MEDS ORDERED: Senna TAB 8.6 mg TAB PO SCH (21:00)
[2022-06-01] MEDS: Bumetanide IV 0.25 MG/ML 4 ml VIAL (1 mg) SLOW PUSH SCH (21:33)
[2022-06-01 23:44] LABS: Calcium 8.3 mg/dL (8.6-10.3); Potassium 3.3 mmol/L (3.5-5.0); eGFR CKD-EPI 88.4 (>60)
[2022-06-02 04:37] LABS: ABS Lymphocytes 0.4 10^3/ul (1.0-4.8); ABS Monocytes 0.9 10^3/ul (0-0.8); ABS Neutrophils 9.1 10^3/ul (1.5-7.7); Hematocrit 36 % (35-47); Hemoglobin 11.7 g/dL (12.0-16.0); Lymphocyte % 3.6 %; Mean Corpuscular HGB Conc 32 g/dL (31-36); Mean Corpuscular Hemoglobin 28 pg (27-31); Mean Corpuscular Volume 88 fL (80-97); Mean Platelet Volume 7.4 fL (7.4-10.4); Platelet Count 169 10^3/uL (150-450); Red Blood Count 4.15 10^6 /uL (3.70-4.87); Red Cell Distribution Width 15 % (10-15); White Blood Count 10.4 10^3/uL (3.5-10.8)
[2022-06-02 05:17] LABS: Calcium 8.1 mg/dL (8.6-10.3); Magnesium 1.1 mg/dL (1.9-2.7); Phosphorus 3.2 mg/dL (2.5-5.0); Potassium 3.1 mmol/L (3.5-5.0); eGFR CKD-EPI 92.4 (>60)
[2022-06-02] MEDS: methylPREDNISolone SOD SUCC 40 mg/ml 1 ml VIAL IV SCH ×2 (05:23→17:54)
[2022-06-02] MEDS: Bumetanide IV 0.25 MG/ML 4 ml VIAL (1 mg) SLOW PUSH SCH ×2 (05:23→13:14)
[2022-06-02] MEDS: Saline FLUSH-CENTRAL 10 ML SYRINGE CENT\\PICC SCH ×2 (05:24→18:26)
[2022-06-02] MEDS: Albuterol 2.5mg/3 ml (0.083%) NEB.SOLN INH SCH ×4 (07:57→20:04)
[2022-06-02] MEDS: Tiotropium Brom/Olodaterol MDI INH SCH (07:58)
[2022-06-02] MEDS ORDERED: Magnesium Sulf 4 GM/100 ML IV 4,000 MG/100 ML BAG IVPB ONE (09:00)
[2022-06-02] MEDS: Cholecalciferol (VIT D3) 1,000 unit TAB PO SCH (11:08)
[2022-06-02] MEDS: Iron Sucrose 200 MG in NS 0.9% 100 ml BAG 100 ML IVPB SCH (11:09)
[2022-06-02] MEDS: PTO: Linaclotide 290 mcg CAP (NF) PO SCH (11:42)
[2022-06-02] MEDS: KCL 20 MEQ/100 ML IVPREMIX 20 MEQ/100 ML BAG IV SCH ×4 (11:43→18:25)
[2022-06-02] MEDS: Polyethylene Glycol 3350 17 GM PACKET PO SCH ×2 (13:15→22:43)
[2022-06-02] MEDS: cefTRIAXone 1 gm/50 mL D5W 1 GM/50 ML BAG IV SCH (17:55)
[2022-06-02] MEDS ORDERED: Potassium Chlor 20 meq TAB.ER PO ONE (18:21)
[2022-06-02] MEDS: Azithromycin 500 mg/250 ml NS 500 MG/250 ML BAG IVPB SCH (18:30)
[2022-06-02] MEDS: Senna TAB 8.6 mg TAB PO SCH (19:35)
[2022-06-02 22:07] LABS: Calcium 8.3 mg/dL (8.6-10.3); Magnesium 2.2 mg/dL (1.9-2.7); Potassium 3.8 mmol/L (3.5-5.0); eGFR CKD-EPI 81.2 (>60)
[2022-06-03 04:51] LABS: ABS Lymphocytes 0.2 10^3/ul (1.0-4.8); ABS Monocytes 1.2 10^3/ul (0-0.8); ABS Neutrophils 13.6 10^3/ul (1.5-7.7); Hematocrit 36 % (35-47); Hemoglobin 11.6 g/dL (12.0-16.0); Lymphocyte % 1.3 %; Mean Corpuscular HGB Conc 32 g/dL (31-36); Mean Corpuscular Hemoglobin 28 pg (27-31); Mean Corpuscular Volume 87 fL (80-97); Mean Platelet Volume 7.6 fL (7.4-10.4); Nucleated Red Blood Cells % 0.1; Platelet Count 201 10^3/uL (150-450); Red Blood Count 4.14 10^6 /uL (3.70-4.87); Red Cell Distribution Width 15 % (10-15)
[2022-06-03 05:20] LABS: Calcium 8.1 mg/dL (8.6-10.3); Phosphorus 2.1 mg/dL (2.5-5.0); Potassium 4.1 mmol/L (3.5-5.0); eGFR CKD-EPI 89.1 (>60)
[2022-06-03] MEDS: methylPREDNISolone SOD SUCC 40 mg/ml 1 ml VIAL IV SCH ×2 (06:23→17:48)
[2022-06-03] MEDS: Bumetanide IV 0.25 MG/ML 4 ml VIAL (1 mg) SLOW PUSH SCH ×2 (06:23→12:35)
[2022-06-03] MEDS: Albuterol 2.5mg/3 ml (0.083%) NEB.SOLN INH SCH ×4 (07:05→19:12)
[2022-06-03] MEDS: Tiotropium Brom/Olodaterol MDI INH SCH (07:07)
[2022-06-03] MEDS: Saline FLUSH-CENTRAL 10 ML SYRINGE CENT\\PICC SCH ×2 (07:13→17:28)
[2022-06-03] MEDS ORDERED: Potassium Phosphate IV 15 MMOLE in NS 0.9% 250 ml 250 ML IVPB ONE (08:02)
[2022-06-03] MEDS: Iron Sucrose 200 MG in NS 0.9% 100 ml BAG 100 ML IVPB SCH (08:24)
[2022-06-03] MEDS: Cholecalciferol (VIT D3) 1,000 unit TAB PO SCH (09:09)
[2022-06-03] MEDS: PTO: Linaclotide 290 mcg CAP (NF) PO SCH (09:14)
[2022-06-03] MEDS ORDERED: Piperacillin/Tazobac ADVAN 3.375 GM in NS 0.9% 100 ml BAG 100 ML IV ONE (10:40)
[2022-06-03] MEDS ORDERED: Zosyn per Pharmacy NOTE FOLLOW UP SCH (11:00)
[2022-06-03] MEDS: Polyethylene Glycol 3350 17 GM PACKET PO SCH ×2 (12:34→22:07)
[2022-06-03] MEDS ORDERED: methylPREDNISolone SOD SUCC 40 mg/ml 1 ml VIAL IV SCH (14:00)
[2022-06-03] MEDS: ZOSYN 3.375 GM Q8H per EXTENDED INFUSION IV SCH ×2 (16:52→23:42)
[2022-06-03 18:05] LABS: eGFR CKD-EPI 88.4 (>60)
[2022-06-03] MEDS: Senna TAB 8.6 mg TAB PO SCH (21:59)
[2022-06-04] MEDS: Saline FLUSH-CENTRAL 10 ML SYRINGE CENT\\PICC SCH ×2 (05:19→17:59)
[2022-06-04 05:23] LABS: ABS Lymphocytes 0.3 10^3/ul (1.0-4.8); ABS Monocytes 1.1 10^3/ul (0-0.8); ABS Neutrophils 13.1 10^3/ul (1.5-7.7); Hematocrit 36 % (35-47); Hemoglobin 11.7 g/dL (12.0-16.0); Lymphocyte % 1.7 %; Mean Corpuscular HGB Conc 33 g/dL (31-36); Mean Corpuscular Hemoglobin 29 pg (27-31); Mean Corpuscular Volume 87 fL (80-97); Mean Platelet Volume 7.6 fL (7.4-10.4); Nucleated Red Blood Cells % 0.1; Platelet Count 196 10^3/uL (150-450); Red Blood Count 4.09 10^6 /uL (3.70-4.87); Red Cell Distribution Width 15 % (10-15); White Blood Count 14.5 10^3/uL (3.5-10.8)
[2022-06-04] MEDS: methylPREDNISolone SOD SUCC 40 mg/ml 1 ml VIAL IV SCH ×2 (05:24→18:05)
[2022-06-04] MEDS: Bumetanide IV 0.25 MG/ML 4 ml VIAL (1 mg) SLOW PUSH SCH ×2 (05:28→11:59)
[2022-06-04 06:12] LABS: Potassium 3.9 mmol/L (3.5-5.0)
[2022-06-04 06:18] LABS: Calcium 7.7 mg/dL (8.6-10.3); Magnesium 1.7 mg/dL (1.9-2.7); eGFR CKD-EPI 88.1 (>60)
[2022-06-04] MEDS: Tiotropium Brom/Olodaterol MDI INH SCH (07:06)
[2022-06-04] MEDS: Albuterol 2.5mg/3 ml (0.083%) NEB.SOLN INH SCH ×4 (07:06→20:13)
[2022-06-04] MEDS ORDERED: Magnesium Sulfate 2 gm BAG 2 GM/50 ML BAG IVPB ONE (07:39)
[2022-06-04] MEDS ORDERED: Potassium Chloride LIQUID 20 MEQ/15 ML LIQUID PO ONE (07:40)
[2022-06-04] MEDS: ZOSYN 3.375 GM Q8H per EXTENDED INFUSION IV SCH ×3 (07:52→23:11)
[2022-06-04] MEDS ORDERED: Bumetanide IV 0.25 MG/ML 4 ml VIAL (1 mg) SLOW PUSH ONE (09:00)
[2022-06-04] MEDS: Cholecalciferol (VIT D3) 1,000 unit TAB PO SCH (09:18)
[2022-06-04] MEDS: PTO: Linaclotide 290 mcg CAP (NF) PO SCH (09:18)
[2022-06-04] MEDS: Iron Sucrose 200 MG in NS 0.9% 100 ml BAG 100 ML IVPB SCH (11:48)
[2022-06-04] MEDS: Polyethylene Glycol 3350 17 GM PACKET PO SCH (11:59)
[2022-06-04] MEDS: Acetylcysteine INH SOL (RT) 200 MG/ML 4 ML VIAL INH SCH ×2 (15:25→20:14)
[2022-06-04 17:35] LABS: Blood Urea Nitrogen 21 mg/dL (6-24); CO2 Carbon Dioxide 36 mmol/L (22-32); Calcium 7.6 mg/dL (8.6-10.3); Chloride 88 mmol/L (101-111); Glucose 147 mg/dL (70-100); Magnesium 2.2 mg/dL (1.9-2.7); Sodium 132 mmol/L (135-145); eGFR CKD-EPI 87.1 (>60)
[2022-06-04 17:44] LABS: Anion Gap 8 mmol/L (2-11)
[2022-06-04] MEDS: Senna TAB 8.6 mg TAB PO SCH (21:38)
[2022-06-05] MEDS: Bumetanide IV 0.25 MG/ML 4 ml VIAL (1 mg) SLOW PUSH SCH (06:03)
[2022-06-05] MEDS: Saline FLUSH-CENTRAL 10 ML SYRINGE CENT\\PICC SCH ×2 (06:05→17:47)
[2022-06-05] MEDS: methylPREDNISolone SOD SUCC 40 mg/ml 1 ml VIAL IV SCH ×2 (06:05→17:47)
[2022-06-05 06:26] LABS: ABS Lymphocytes 0.2 10^3/ul (1.0-4.8); ABS Neutrophils 10.7 10^3/ul (1.5-7.7); Hematocrit 34 % (35-47); Hemoglobin 11.4 g/dL (12.0-16.0); Lymphocyte % 1.3 %; Mean Corpuscular HGB Conc 34 g/dL (31-36); Mean Corpuscular Hemoglobin 29 pg (27-31); Mean Corpuscular Volume 87 fL (80-97); Mean Platelet Volume 7.6 fL (7.4-10.4); Platelet Count 197 10^3/uL (150-450); Red Blood Count 3.91 10^6 /uL (3.70-4.87); Red Cell Distribution Width 15 % (10-15); White Blood Count 11.8 10^3/uL (3.5-10.8)
[2022-06-05 07:07] LABS: Calcium 7.6 mg/dL (8.6-10.3); Magnesium 1.9 mg/dL (1.9-2.7); Phosphorus 2.5 mg/dL (2.5-5.0); Potassium 3.7 mmol/L (3.5-5.0); eGFR CKD-EPI 88.4 (>60)
[2022-06-05] MEDS: Acetylcysteine INH SOL (RT) 200 MG/ML 4 ML VIAL INH SCH ×4 (07:31→20:01)
[2022-06-05] MEDS: Albuterol 2.5mg/3 ml (0.083%) NEB.SOLN INH SCH ×4 (07:41→20:00)
[2022-06-05] MEDS: ZOSYN 3.375 GM Q8H per EXTENDED INFUSION IV SCH ×3 (08:28→23:19)
[2022-06-05] MEDS: Tiotropium Brom/Olodaterol MDI INH SCH (09:48)
[2022-06-05] MEDS: Cholecalciferol (VIT D3) 1,000 unit TAB PO SCH (09:58)
[2022-06-05] MEDS: PTO: Linaclotide 290 mcg CAP (NF) PO SCH (09:59)
[2022-06-05] MEDS: Iron Sucrose 200 MG in NS 0.9% 100 ml BAG 100 ML IVPB SCH (10:08)
[2022-06-05] MEDS: Bumetanide IV 10 MG in Premix IV 0 ML IV SCH ×2 (11:06→17:46)
[2022-06-05] MEDS ORDERED: Bumetanide IV 0.25 MG/ML 4 ml VIAL (1 mg) SLOW PUSH SCH (12:00)
[2022-06-05 15:35] LABS: Urine Appearance Clear; Urine Bilirubin Negative (Negative); Urine Blood 2+ (Negative); Urine Color Yellow; Urine Glucose Negative (Negative); Urine Ketones Negative (Negative); Urine Nitrite Negative (Negative); Urine Protein Negative (Negative); Urine Urobilinogen Negative (Negative)
[2022-06-05 16:11] LABS: Calcium 7.8 mg/dL (8.6-10.3); Magnesium 1.5 mg/dL (1.9-2.7); Potassium 3.4 mmol/L (3.5-5.0); eGFR CKD-EPI 89.4 (>60)
[2022-06-05] MEDS ORDERED: Magnesium Sulf 4 GM/100 ML IV 4,000 MG/100 ML BAG IVPB ONE (18:04)
[2022-06-05 18:34] LABS: Urine Red Blood Cell 3+(>10/hpf) (Absent)
[2022-06-05 18:35] LABS: Urine Bacteria 1+ (Absent); Urine Renal Epithelial Cells Present (Absent); Urine Squamous Epithelial Cell Present (Absent); Urine Transitional Epithelial Present (Absent)
[2022-06-05] MEDS: Potassium Chloride LIQUID 20 MEQ/15 ML LIQUID PO SCH (21:14)
[2022-06-05] MEDS: KCL 20 MEQ/100 ML IVPREMIX 20 MEQ/100 ML BAG IV SCH ×2 (21:14→23:22)
[2022-06-05] MEDS: Senna TAB 8.6 mg TAB PO SCH (21:16)
[2022-06-06] MEDS ORDERED: acetaZOLAMIDE IV 500 MG in NS 0.9% 50 ML 50 ML IVPB ONE ×2 (00:01→06:00)
[2022-06-06 00:21] LABS: Calcium 7.8 mg/dL (8.6-10.3); Magnesium 2.5 mg/dL (1.9-2.7); Potassium 4.3 mmol/L (3.5-5.0); eGFR CKD-EPI 90.1 (>60)
[2022-06-06] MEDS: KCL 20 MEQ/100 ML IVPREMIX 20 MEQ/100 ML BAG IV SCH (01:35)
[2022-06-06] MEDS: Acetylcysteine INH SOL (RT) 200 MG/ML 4 ML VIAL INH SCH ×4 (02:15→20:48)
[2022-06-06] MEDS: Albuterol 2.5mg/3 ml (0.083%) NEB.SOLN INH SCH ×4 (02:15→20:48)
[2022-06-06] MEDS: Bumetanide IV 10 MG in Premix IV 0 ML IV SCH ×3 (03:45→18:31)
[2022-06-06] MEDS: methylPREDNISolone SOD SUCC 40 mg/ml 1 ml VIAL IV SCH ×2 (05:45→18:06)
[2022-06-06 06:41] LABS: Magnesium 2.1 mg/dL (1.9-2.7); Potassium 4.5 mmol/L (3.5-5.0); eGFR CKD-EPI 89.4 (>60)
[2022-06-06] MEDS: Saline FLUSH-CENTRAL 10 ML SYRINGE CENT\\PICC SCH ×2 (06:44→18:07)
[2022-06-06] MEDS: Tiotropium Brom/Olodaterol MDI INH SCH (07:35)
[2022-06-06] MEDS: Cholecalciferol (VIT D3) 1,000 unit TAB PO SCH (08:31)
[2022-06-06] MEDS: PTO: Linaclotide 290 mcg CAP (NF) PO SCH (08:33)
[2022-06-06] MEDS: Potassium Chloride LIQUID 20 MEQ/15 ML LIQUID PO SCH (08:37)
[2022-06-06] MEDS: ZOSYN 3.375 GM Q8H per EXTENDED INFUSION IV SCH ×3 (09:16→23:01)
[2022-06-06] MEDS: Senna TAB 8.6 mg TAB PO SCH (19:55)
[2022-06-06] MEDS: Magnesium Hydroxide LIQ 30 ML UDC PO PRN (19:55)
[2022-06-07] MEDS: Albuterol 2.5mg/3 ml (0.083%) NEB.SOLN INH SCH ×4 (00:54→19:32)
[2022-06-07] MEDS: Acetylcysteine INH SOL (RT) 200 MG/ML 4 ML VIAL INH SCH ×2 (00:55→11:08)
[2022-06-07] MEDS: Bumetanide IV 10 MG in Premix IV 0 ML IV SCH ×2 (01:03→11:48)
[2022-06-07] MEDS ORDERED: hydrALAZINE 20 mg/ml 1 ML Vial IV IV SLOW PU ONE (03:23)
[2022-06-07] MEDS: methylPREDNISolone SOD SUCC 40 mg/ml 1 ml VIAL IV SCH ×2 (05:17→16:57)
[2022-06-07] MEDS: Saline FLUSH-CENTRAL 10 ML SYRINGE CENT\\PICC SCH ×2 (05:17→16:18)
[2022-06-07 05:50] LABS: Hematocrit 42 % (35-47); Hemoglobin 13.7 g/dL (12.0-16.0); Mean Corpuscular HGB Conc 32 g/dL (31-36); Mean Corpuscular Hemoglobin 29 pg (27-31); Mean Corpuscular Volume 88 fL (80-97); Mean Platelet Volume 7.8 fL (7.4-10.4); Platelet Count 255 10^3/uL (150-450); Red Blood Count 4.82 10^6 /uL (3.70-4.87); Red Cell Distribution Width 15 % (10-15); White Blood Count 16.7 10^3/uL (3.5-10.8)
[2022-06-07 06:28] LABS: Calcium 8.5 mg/dL (8.6-10.3); Potassium 3.5 mmol/L (3.5-5.0); eGFR CKD-EPI 70.8 (>60)
[2022-06-07 06:30] LABS: ABS Lymphocytes 0.4 10^3/ul (1.0-4.8); ABS Monocytes 1.6 10^3/ul (0-0.8); ABS Neutrophils 14.7 10^3/ul (1.5-7.7); Eosinophil % 0.1 %; Lymphocyte % 2.5 %; Nucleated Red Blood Cells % 0.1
[2022-06-07] MEDS: ZOSYN 3.375 GM Q8H per EXTENDED INFUSION IV SCH ×2 (07:08→15:38)
[2022-06-07] MEDS: Tiotropium Brom/Olodaterol MDI INH SCH (07:22)
[2022-06-07] MEDS: Cholecalciferol (VIT D3) 1,000 unit TAB PO SCH (07:59)
[2022-06-07] MEDS: PTO: Linaclotide 290 mcg CAP (NF) PO SCH (08:00)
[2022-06-07 19:59] LABS: Calcium 8.5 mg/dL (8.6-10.3); Potassium 3.8 mmol/L (3.5-5.0); eGFR CKD-EPI 60.2 (>60)
[2022-06-07] MEDS: Senna TAB 8.6 mg TAB PO SCH (20:19)
[2022-06-08] MEDS: Albuterol 2.5mg/3 ml (0.083%) NEB.SOLN INH SCH ×4 (00:01→19:53)
[2022-06-08] MEDS: ZOSYN 3.375 GM Q8H per EXTENDED INFUSION IV SCH ×2 (00:18→08:27)
[2022-06-08] MEDS: Saline FLUSH-CENTRAL 10 ML SYRINGE CENT\\PICC SCH ×2 (04:42→17:23)
[2022-06-08] MEDS: methylPREDNISolone SOD SUCC 40 mg/ml 1 ml VIAL IV SCH (05:06)
[2022-06-08 05:27] LABS: ABS Basophils 0.1 10^3/ul (0-0.2); ABS Lymphocytes 0.3 10^3/ul (1.0-4.8); ABS Monocytes 1.4 10^3/ul (0-0.8); ABS Neutrophils 14.3 10^3/ul (1.5-7.7); Eosinophil % 0.1 %; Hematocrit 41 % (35-47); Hemoglobin 13.5 g/dL (12.0-16.0); Lymphocyte % 2.1 %; Mean Corpuscular HGB Conc 33 g/dL (31-36); Mean Corpuscular Hemoglobin 29 pg (27-31); Mean Corpuscular Volume 87 fL (80-97); Mean Platelet Volume 7.8 fL (7.4-10.4); Platelet Count 244 10^3/uL (150-450); Red Blood Count 4.67 10^6 /uL (3.70-4.87); Red Cell Distribution Width 15 % (10-15); White Blood Count 16.1 10^3/uL (3.5-10.8)
[2022-06-08 05:57] LABS: Albumin 3.1 g/dL (3.2-5.2); Albumin/Globulin Ratio 1.3 (1-3); Calcium 8.7 mg/dL (8.6-10.3); Globulin 2.4 g/dL (2-4); Magnesium 1.9 mg/dL (1.9-2.7); Potassium 3.6 mmol/L (3.5-5.0); Total Bilirubin 0.7 mg/dL (0.2-1.0); Total Protein 5.5 g/dL (6.4-8.9); eGFR CKD-EPI 70.8 (>60)
[2022-06-08] MEDS: Tiotropium Brom/Olodaterol MDI INH SCH (07:16)
[2022-06-08] MEDS: Bumetanide IV 10 MG in Premix IV 0 ML IV SCH (08:18)
[2022-06-08] MEDS: Cholecalciferol (VIT D3) 1,000 unit TAB PO SCH (08:30)
[2022-06-08] MEDS: PTO: Linaclotide 290 mcg CAP (NF) PO SCH (08:30)
[2022-06-08] MEDS: Bumetanide IV 0.25 MG/ML 4 ml VIAL (1 mg) SLOW PUSH SCH ×3 (12:13→22:59)
[2022-06-08] MEDS: Senna TAB 8.6 mg TAB PO SCH (20:42)
[2022-06-09] MEDS: Albuterol 2.5mg/3 ml (0.083%) NEB.SOLN INH SCH ×5 (01:06→19:17)
[2022-06-09] MEDS: Bumetanide IV 0.25 MG/ML 4 ml VIAL (1 mg) SLOW PUSH SCH ×4 (04:56→23:11)
[2022-06-09 05:27] LABS: Hematocrit 43 % (35-47); Mean Corpuscular HGB Conc 33 g/dL (31-36); Mean Corpuscular Hemoglobin 29 pg (27-31); Mean Corpuscular Volume 87 fL (80-97); Mean Platelet Volume 7.9 fL (7.4-10.4); Platelet Count 248 10^3/uL (150-450); Red Blood Count 4.89 10^6 /uL (3.70-4.87); Red Cell Distribution Width 15 % (10-15); White Blood Count 17.9 10^3/uL (3.5-10.8)
[2022-06-09 05:59] LABS: Calcium 8.9 mg/dL (8.6-10.3); Potassium 4.2 mmol/L (3.5-5.0); eGFR CKD-EPI 58.7 (>60)
[2022-06-09] MEDS: Tiotropium Brom/Olodaterol MDI INH SCH (07:15)
[2022-06-09 08:17] LABS: ABS Eosinophils 0.3 10^3/ul (0-0.6); ABS Lymphocytes 1.1 10^3/ul (1.0-4.8); ABS Monocytes 2.2 10^3/ul (0-0.8); ABS Neutrophils 14.3 10^3/ul (1.5-7.7); Eosinophil % 1.5 %; Lymphocyte % 5.9 %
[2022-06-09] MEDS: Cholecalciferol (VIT D3) 1,000 unit TAB PO SCH (08:19)
[2022-06-09] MEDS: Saline FLUSH-CENTRAL 10 ML SYRINGE CENT\\PICC SCH ×2 (08:25→16:18)
[2022-06-09] MEDS: PTO: Linaclotide 290 mcg CAP (NF) PO SCH (08:26)
[2022-06-09] MEDS: Senna TAB 8.6 mg TAB PO SCH (20:51)
[2022-06-09] MEDS: Magnesium Hydroxide LIQ 30 ML UDC PO PRN (20:54)
[2022-06-10] MEDS: Albuterol 2.5mg/3 ml (0.083%) NEB.SOLN INH SCH ×4 (01:43→18:46)
[2022-06-10] MEDS: Bumetanide IV 0.25 MG/ML 4 ml VIAL (1 mg) SLOW PUSH SCH (04:40)
[2022-06-10] MEDS: Saline FLUSH-CENTRAL 10 ML SYRINGE CENT\\PICC SCH ×2 (04:48→17:53)
[2022-06-10 05:01] LABS: Hematocrit 42 % (35-47); Hemoglobin 14.1 g/dL (12.0-16.0); Mean Corpuscular HGB Conc 34 g/dL (31-36); Mean Corpuscular Hemoglobin 29 pg (27-31); Mean Corpuscular Volume 85 fL (80-97); Mean Platelet Volume 7.4 fL (7.4-10.4); Platelet Count 246 10^3/uL (150-450); Red Cell Distribution Width 15 % (10-15); White Blood Count 18.2 10^3/uL (3.5-10.8)
[2022-06-10 05:02] LABS: ABS Eosinophils 0.2 10^3/ul (0-0.6); ABS Lymphocytes 1.5 10^3/ul (1.0-4.8); ABS Monocytes 2.1 10^3/ul (0-0.8); ABS Neutrophils 14.4 10^3/ul (1.5-7.7); Eosinophil % 0.8 %
[2022-06-10 05:36] LABS: Calcium 8.8 mg/dL (8.6-10.3); Magnesium 2.4 mg/dL (1.9-2.7); Phosphorus 4.5 mg/dL (2.5-5.0); Potassium 3.4 mmol/L (3.5-5.0)
[2022-06-10] MEDS: Tiotropium Brom/Olodaterol MDI INH SCH ×2 (06:45→11:00)
[2022-06-10] MEDS: Cholecalciferol (VIT D3) 1,000 unit TAB PO SCH (09:06)
[2022-06-10] MEDS: PTO: Linaclotide 290 mcg CAP (NF) PO SCH (09:08)
[2022-06-10] MEDS ORDERED: Potassium Chlor 20 meq TAB.ER PO ONE ×2 (13:00→17:00)
[2022-06-10] MEDS ORDERED: Sodium Phosphate ADULT ENEMA 133 ML BTL PR ONE (18:12)
[2022-06-10] MEDS: Senna TAB 8.6 mg TAB PO SCH (21:03)
[2022-06-11] MEDS: Albuterol 2.5mg/3 ml (0.083%) NEB.SOLN INH SCH ×4 (01:12→18:49)
[2022-06-11] MEDS: Saline FLUSH-CENTRAL 10 ML SYRINGE CENT\\PICC SCH ×2 (06:36→17:24)
[2022-06-11] MEDS: Tiotropium Brom/Olodaterol MDI INH SCH ×2 (06:57→12:31)
[2022-06-11] MEDS: Cholecalciferol (VIT D3) 1,000 unit TAB PO SCH (09:29)
[2022-06-11] MEDS: PTO: Linaclotide 290 mcg CAP (NF) PO SCH (11:18)
[2022-06-11] MEDS: fentaNYL PATCH 50 MCG/HR 1 PATCH TRANSDERM SCH (17:06)
[2022-06-11] MEDS: fentaNYL Patch Check Q Shift NOTE FOLLOW UP SCH (19:41)
[2022-06-11] MEDS ORDERED: Acetaminophen IV 1 GM/100ML 1,000 MG/100 ML BAG IV PRN (20:18)
[2022-06-11] MEDS: Senna TAB 8.6 mg TAB PO SCH (21:47)
[2022-06-12] MEDS: Albuterol 2.5mg/3 ml (0.083%) NEB.SOLN INH SCH ×4 (00:42→18:58)
[2022-06-12] MEDS: Saline FLUSH-CENTRAL 10 ML SYRINGE CENT\\PICC SCH ×2 (05:39→17:55)
[2022-06-12] MEDS: fentaNYL Patch Check Q Shift NOTE FOLLOW UP SCH ×2 (07:17→18:57)
[2022-06-12] MEDS: Tiotropium Brom/Olodaterol MDI INH SCH (09:02)
[2022-06-12] MEDS: PTO: Linaclotide 290 mcg CAP (NF) PO SCH (09:03)
[2022-06-12] MEDS: Cholecalciferol (VIT D3) 1,000 unit TAB PO SCH (09:04)
[2022-06-12] MEDS: Senna TAB 8.6 mg TAB PO SCH (21:15)
[2022-06-13] MEDS: Albuterol 2.5mg/3 ml (0.083%) NEB.SOLN INH SCH ×2 (01:18→07:21)
[2022-06-13] MEDS: Saline FLUSH-CENTRAL 10 ML SYRINGE CENT\\PICC SCH ×2 (05:44→17:00)
[2022-06-13] MEDS: Tiotropium Brom/Olodaterol MDI INH SCH (07:16)
[2022-06-13] MEDS: fentaNYL Patch Check Q Shift NOTE FOLLOW UP SCH ×2 (07:17→19:17)
[2022-06-13] MEDS ORDERED: Albuterol 2.5mg/3 ml (0.083%) NEB.SOLN INH PRN (08:22)
[2022-06-13] MEDS: Cholecalciferol (VIT D3) 1,000 unit TAB PO SCH (09:11)
[2022-06-13] MEDS: PTO: Linaclotide 290 mcg CAP (NF) PO SCH (09:11)
[2022-06-13] MEDS ORDERED: Sodium Phosphate ADULT ENEMA 133 ML BTL PR ONE (10:50)
[2022-06-13] MEDS: Senna TAB 8.6 mg TAB PO SCH (21:46)
[2022-06-14] MEDS: Saline FLUSH-CENTRAL 10 ML SYRINGE CENT\\PICC SCH ×2 (06:32→18:04)
[2022-06-14] MEDS: fentaNYL Patch Check Q Shift NOTE FOLLOW UP SCH ×2 (07:24→19:18)
[2022-06-14] MEDS: Tiotropium Brom/Olodaterol MDI INH SCH (08:33)
[2022-06-14] MEDS: PTO: Linaclotide 290 mcg CAP (NF) PO SCH (09:08)
[2022-06-14] MEDS: Cholecalciferol (VIT D3) 1,000 unit TAB PO SCH (09:10)
[2022-06-14] MEDS: fentaNYL PATCH 50 MCG/HR 1 PATCH TRANSDERM SCH (16:37)
[2022-06-14] MEDS: Senna TAB 8.6 mg TAB PO SCH (21:59)
[2022-06-15] MEDS: fentaNYL Patch Check Q Shift NOTE FOLLOW UP SCH (07:13)
[2022-06-15 07:24] VITALS: BP 101/48
[2022-06-15] MEDS: Saline FLUSH-CENTRAL 10 ML SYRINGE CENT\\PICC SCH (08:08)
[2022-06-15] MEDS: PTO: Linaclotide 290 mcg CAP (NF) PO SCH (08:08)
[2022-06-15] MEDS: Cholecalciferol (VIT D3) 1,000 unit TAB PO SCH (08:10)
[2022-06-15 08:47] LABS: Rapid COVID-19 Molecular Undetected (Undetected)
[2022-06-15] MEDS: Tiotropium Brom/Olodaterol MDI INH SCH (08:53)
== END 2022-06-15 10:45 | disposition home or self-care (01) | DRG 280 ==
LOC: ED 15:12 → EDHOLD 17:02 → SUATTDRO 17:02 → ICU 19:05 → EDHOLD 19:16 → ICU 06-01 21:02 → MEDTELE 06-12 16:30 → MED 06-13 03:42
PROVIDERS: ADMIT Surgery Surgical Critical Care; ATTEND Hospitalist